=== PATIENT | female | born 1990 | race Caucasian/White ===

== ENCOUNTER 2021-01-25 09:03 | Outpatient (CLI) | payer BC, SELFPAY ==
[2021-01-25 09:25] LABS: Cholesterol 180 mg/dL (0-200); HDL Direct 48 mg/dL; LDL Cholesterol Direct 101 mg/dL; Triglycerides 106 mg/dL (<150)
[2021-01-25 09:27] LABS: Vitamin D 25 Hydroxy 39.3 ng/mL
[2021-01-25 09:29] LABS: Alanine Aminotransferase 87 U/L (4-35); Albumin Level 4.5 g/dL (3.5-5.1); Alkaline Phosphatase 96 U/L (38-126); Anion Gap 8 mmol/L (8-16); Aspartate Amino Transferase 54 U/L (14-36); Bilirubin,Total 0.9 mg/dL (0.2-1.3); Blood Urea Nitrogen 15 mg/dL (7-17); Calcium 9.1 mg/dL (8.4-10.2); Carbon Dioxide 28 mmol/L (22-30); Chloride 101 mmol/L (98-107); Estimated Glomerular Filt Rate > 60; Folic Acid 10.9 ng/mL (2.76->20); Glucose 98 mg/dL (65-110); Potassium 4.2 mmol/L (3.4-5.0); Sodium 137 mmol/L (137-145)
[2021-01-25 10:06] LABS: Basophils Percent Auto 0.6 % (0.2-1.2); Eosinophils Absolute Auto 0.1 K/mm3 (0-0.3); Eosinophils Percent Auto 1.6 % (0-4.4); Hematocrit 34.8 % (37.0-47.0); Hemoglobin 11.9 g/dL (12.0-15.0); Immature Granulocyte Absolute 0.02 K/mm3 (0.00-0.031); Immature Granulocyte Percent A 0.3 % (0-0.5); Lymphocytes Absolute Auto 2.45 K/mm3 (0.9-3.2); Lymphocytes Percent Auto 34.8 % (18.3-44.2); Mean Corpuscular HGB Conc 34.2 g/dl (32-36); Mean Corpuscular Hemoglobin 30.2 pg (26-34); Mean Corpuscular Volume 88.3 fl (80-100); Mean Platelet Volume 9.1 fl (7.4-10.4); Monocytes Absolute Auto 0.6 K/mm3 (0.1-0.6); Neutrophils Absolute Auto 3.9 K/mm3 (1.3-6.7); Neutrophils Percent Auto 54.7 % (45.5-73.1); Platelet Count Result 349 k/mm3 (150-375); Red Blood Count 3.94 M/mm3 (4.2-5.4); Red Cell Distribution Width 11.7 % (11.5-14.5)
[2021-01-25 11:32] LABS: Add Urine Microscopic? YES; Appearance Urine Cloudy (Clear); Bacteria Urine Trace /hpf; Bilirubin Urine Negative (Negative); Blood Urine Negative (Negative); Color Urine Yellow (Yellow); Glucose Urine UA Negative (Negative); Ketones Urine Negative (Negative); Leukocyte Esterase Ur Negative LEU/UL (Negative); Mucus Urine Rare /lpf; Nitrate Urine Negative (Negative); Protein Urine Negative (Negative); Specific Grav Ur 1.014 (1.001-1.035); Squamous Epithelial Cell Urine Few /hpf (Few); Urobilinogen Urine Negative mg/dL (<2.0); WBC Urine 0-3 /hpf
== END 2021-01-25 09:04 | disposition home or self-care (01) ==
LOC: ANHLAB 09:07
PROVIDERS: PCP Family Medicine; Visit Provider Family Medicine
DX: Z00.00 Encounter for general adult medical examination without abnormal findings (principal); E66.9 Obesity, unspecified; G89.29 Other chronic pain; Z13.9 Encounter for screening, unspecified
CPT/HCPCS: 36415; 80053; 80061; 81001; 82306; 82607; 82746; 83036; 83735; 85025

== ENCOUNTER 2021-05-11 20:14 | Emergency (ER) | payer BC, SELFPAY ==
[2021-05-11 20:20] VITALS: BP 123/88; PULSE 65; RESP 16; TEMP 36.2; O2SAT 97
--- NOTE | 2021-05-11 20:37 | ED.GENADULT ---
HPI - General Adult General Chief complaint: Epistaxis Stated complaint: nose bleed Source: patient Mode of arrival: ambulatory Limitations: no limitations History of Present Illness HPI narrative: patient presents with history of nose bleed that occurred earlier today has been using pseudoephedrine intranasally because of nasal congestion and patient had a nosebleed that lasted maybe about a half an hour [id number] currently there is no bleeding there is some nasal congestion with no fever chills no shortness of breath no sinus congestion or pressure. Onset (ago): hour(s) Location: face ( nose bleed) Related Data Home Medications Medication Instructions Recorded Confirmed buspirone 5 mg PO DIRECTED 05/11/21 05/11/21 escitalopram oxalate 5 mg PO DIRECTED 05/11/21 05/11/21 Allergies Allergy/AdvReac Type Severity Reaction Status Date / Time latex Allergy Unknown Hives Verified 05/11/21 20:32 Review of Systems Review of Systems: All systems reviewed & are unremarkable except as noted in HPI and below PMFSH Past Medical History Medical History Nasal congestion Exam Const: General: no acute distress Orientation/consciousness: patient oriented x3 HENMT: Head: normal to inspection Other: is nostrils bilaterally lochia erythematous and there is on the right nostril a small amount of intranasal blood but currently no bleeding. Eyes: Conjunctivae: conjunctivae normal Pupils: Equal, round and reactive pupils present Neck: Neck: normal visual inspection and no lymphadenopathy Chest: Chest palpation & inspection: normal inspection of the chest Resp: Effort & Inspection: normal respiratory effort Auscultation: clear to auscultation bilaterally GI: GI Palp: Yes Soft to palpation Percussion: Yes normal to percussion : General: Yes no CVA tenderness Urinary Catheter: Urinary Catheter: patent and draining Skin: General skin exam: normal color Rashes: no rashes Neuro: General: patient oriented x3 and moves all extremities Extrem: General: normal to inspection and no pedal edema Psych: Mental Status: mental status grossly normal Course Course Emergency Course: The patient presents and currently there is no epistaxis, advised methods to contain epistaxis, advised her to discontinue her phenylephrine, Critical Care Time Critical Care Time Critical Care Time: No Discharge Plan Discharge Clinical Impression: Epistaxis Patient Disposition: Home, Self-Care Condition: Stable Instructions: Antibiotic Form, Nosebleed (ED) Additional Instructions: advised to discontinue phenylephrine, can use Claritin by mouth daily, instill water into nostrils and code Q-tip with Vaseline and gently Andrez inside of nostrils, use a cool mist humidifier at night and follow-up with primary care physician if symptoms persist. Prescriptions: No Action escitalopram oxalate 5 mg tablet 5 mg PO DIRECTED RF: 0 buspirone 5 mg PO DIRECTED RF: 0 Follow-up/Referrals: Martell,MD Eulogio [Primary Care Provider] - Stand Alone Forms: Work/School Release IP Time of Disposition: 20:41
== END 2021-05-11 20:50 | disposition home or self-care (01) ==
PROVIDERS: Emergency Provider Emergency Medicine; PCP Family Medicine
DX: R04.0 Epistaxis (principal)
CPT/HCPCS: 99281

== ENCOUNTER 2022-05-31 07:06 | Outpatient (CLI) | payer BC, SELFPAY ==
[2022-05-31 07:34] LABS: Basophils Absolute Auto 0.1 K/mm3 (0.0-0.1); Basophils Percent Auto 0.9 % (0.2-1.2); Eosinophils Absolute Auto 0.3 K/mm3 (0-0.3); Hematocrit 40.3 % (37.0-47.0); Hemoglobin 13.7 g/dL (12.0-15.0); Immature Granulocyte Absolute 0.01 K/mm3 (0.00-0.031); Immature Granulocyte Percent A 0.1 % (0-0.5); Lymphocytes Absolute Auto 3.77 K/mm3 (0.9-3.2); Lymphocytes Percent Auto 40.5 % (18.3-44.2); Mean Corpuscular Volume 88.2 fl (80-100); Mean Platelet Volume 8.6 fl (7.4-10.4); Monocytes Absolute Auto 0.7 K/mm3 (0.1-0.6); Monocytes Percent Auto 7.5 % (2.6-8.5); Neutrophils Absolute Auto 4.5 K/mm3 (1.3-6.7); Platelet Count Result 358 k/mm3 (150-375); Red Blood Count 4.57 M/mm3 (4.2-5.4); Red Cell Distribution Width 11.8 % (11.5-14.5); White Blood Count 9.3 K/mm3 (4.5-10.0)
[2022-05-31 07:35] LABS: Hemoglobin A1C 5.2 % (<5.7)
[2022-05-31 07:37] LABS: Anion Gap 6 mmol/L (8-16); Blood Urea Nitrogen 17 mg/dL (7-17); Calcium 9.3 mg/dL (8.4-10.2); Carbon Dioxide 30 mmol/L (22-30); Chloride 101 mmol/L (98-107); Estimated Glomerular Filt Rate > 60; Glucose 102 mg/dL (65-110); Potassium 4.1 mmol/L (3.4-5.0); Sodium 137 mmol/L (137-145)
[2022-05-31 07:38] LABS: Alanine Aminotransferase 57 U/L (6-35); Albumin Level 4.5 g/dL (3.5-5.1); Alkaline Phosphatase 105 U/L (38-126); Aspartate Amino Transferase 52 U/L (14-36); Bilirubin,Total 0.8 mg/dL (0.2-1.3); Total Protein 7.3 g/dL (6.3-8.2)
[2022-06-03 16:33] LABS: Triiodothyronine T3 Free 2.9 pg/mL (2.3-4.2)
[2022-06-05 04:46] LABS: Insulin Level Total 6.6 uIU/mL (<=19.6)
== END 2022-05-31 07:07 | disposition home or self-care (01) ==
LOC: ANHLAB 07:10
PROVIDERS: PCP Family Medicine
DX: R63.5 Abnormal weight gain (principal); Z79.899 Other long term (current) drug therapy
CPT/HCPCS: 36415; 80053; 82533; 83036; 83525; 84439; 84443; 84481; 85025

== ENCOUNTER 2022-10-11 19:05 | Emergency (ER) | payer BC, SELFPAY ==
[2022-10-11 19:05] VITALS: BP 156/100; PULSE 95; RESP 18; TEMP 36.9; O2SAT 100
--- NOTE | 2022-10-11 19:17 | ED.GENADULT ---
HPI - General Adult General Chief complaint: Unspecified Stated complaint: Hypertension Time Seen by Provider: 10/11/22 19:10 History of Present Illness HPI narrative: Shila is a 31F with a PMH of a mood disorder and very seldom headaches that presented to the ED with a headache ans stress. When asked why she came to the ED she just said she needed help. She said she was afraid she was going to have a stroke or a heart attack but she denied any chest pain, dyspnea, N/V and lightheadedness as well as weakness and slurred speech. It turns out she is under a lot of family stress watching her sister's triplets and her sister has legal troubles. She is just under a lot of stress and she cannot get into a doctor. She has a very flat affect and speaks with very short answers with somewhat mumbled speech making a history quite difficult. She did however report that she has a right sided pounding headache with vision changes that came on slowly today that is giving her a lot of trouble. Related Data Home Medications Medication Instructions Recorded Confirmed buspirone 5 mg PO DIRECTED 05/11/21 10/11/22 Allergies Allergy/AdvReac Type Severity Reaction Status Date / Time latex Allergy Unknown Hives Verified 05/11/21 20:32 Review of Systems Review of Systems: All systems reviewed & are unremarkable except as noted in HPI and below PMFSH Past Medical History Medical History Nasal congestion Exam Const: General: cooperative, healthy appearing, comfortable and no acute distress Nutritional Appearance: well nourished Orientation/consciousness: oriented to person HENMT: Head: normal to inspection, normocephalic and atraumatic Ears: hearing grossly normal bilaterally and TM's normal bilaterally Eyes: General: appearance normal, both eyes and all related structures Alignment and Position: alignment normal Neck: Neck: normal visual inspection Chest: Chest palpation & inspection: normal inspection of the chest Resp: Effort & Inspection: normal respiratory effort and able to speak in complete sentences Cardio: Rate: regular rate GI: Inspection: normal to inspection Skin: General skin exam: normal color and no rashes or lesions noted Neuro: General: oriented to person, oriented to place, oriented to time, gait normal, moves all extremities and CN's II-XI intact bilaterally Other: 5/5 symmetrical strength throughout the upper and lower extremities Extrem: General: normal to inspection Psych: Appearance: grossly normal and well kempt Mental Status: mental status grossly normal Speech and movement: Slurred speech present and Slowed movement present (Neuro) Affect: Sad affect present Attitude: cooperative and Avoids eye contact (attititude/behavior) Thought process: Normal thought process present Insight: Good insight present (Psych) Course Course Emergency Course: Ordered Benadryl, Compazine, and fluids for the headache and Ativan for the mood. Vital Signs Vital signs: Vital Signs Temperature 98.5 F 10/11/22 19:05 Pulse Rate 95 10/11/22 19:05 Respiratory Rate 18 10/11/22 19:05 Blood Pressure 156/100 H 10/11/22 19:05 Pulse Oximetry 100 10/11/22 19:05 Oxygen Delivery Room Air 10/11/22 19:05 Temperature 98.9 F 10/11/22 19:52 Pulse Rate 104 H 10/11/22 19:52 Respiratory Rate 18 10/11/22 19:52 Blood Pressure 136/97 H 10/11/22 19:52 Pulse Oximetry 100 10/11/22 19:52 Oxygen Delivery Room Air 10/11/22 19:52 Medical Decision Making Vital Signs Vital Signs: Vital Signs Temperature 98.5 F 10/11/22 19:05 Pulse Rate 95 10/11/22 19:05 Respiratory Rate 18 10/11/22 19:05 Blood Pressure 156/100 H 10/11/22 19:05 Pulse Oximetry 100 10/11/22 19:05 Oxygen Delivery Room Air 10/11/22 19:05 Temperature 98.9 F 10/11/22 19:52 Pulse Rate 104 H 10/11/22 19:52 Respiratory Rate 18
[2022-10-11] MEDS: SODIUM CHLORIDE 0.9% IV 1,000 ML 999 ML IV CONT (19:37)
[2022-10-11] MEDS: PROCHLORPERAZINE EDISYLATE 10 MG/2 ML VIAL IM (19:39)
[2022-10-11] MEDS: LORazepam INJ (*CRX) 2 MG/ML VIAL 0.5 MG IV PUSH (19:39)
[2022-10-11] MEDS: diphenhydrAMINE HCl INJ 50 MG/ML VIAL IV PUSH (19:39)
[2022-10-11 20:00] VITALS: BP 140/100; PULSE 75; RESP 20; O2SAT 99
[2022-10-11 20:38] VITALS: BP 137/81; PULSE 85; RESP 18; TEMP 36.6; O2SAT 100
== END 2022-10-11 20:41 | disposition home or self-care (01) ==
PROVIDERS: Emergency Provider Family Medicine
DX: F41.0 Panic disorder [episodic paroxysmal anxiety] (principal); F41.1 Generalized anxiety disorder; I10 Essential (primary) hypertension
CPT/HCPCS: 96361; 96372; 96374; 96375; 99284; J0780; J1200; J2060; J7030

== ENCOUNTER 2022-12-06 07:30 | Outpatient (CLI) | payer BC, SELFPAY ==
[2022-12-06 07:45] LABS: Basophils Absolute Auto 0.1 K/mm3 (0.0-0.1); Basophils Percent Auto 0.7 % (0.2-1.2); Eosinophils Absolute Auto 0.1 K/mm3 (0-0.3); Eosinophils Percent Auto 1.7 % (0-4.4); Hematocrit 40.6 % (37.0-47.0); Hemoglobin 13.6 g/dL (12.0-15.0); Immature Granulocyte Absolute 0.02 K/mm3 (0.00-0.031); Immature Granulocyte Percent A 0.2 % (0-0.5); Lymphocytes Absolute Auto 2.34 K/mm3 (0.9-3.2); Lymphocytes Percent Auto 28.2 % (18.3-44.2); Mean Corpuscular HGB Conc 33.5 g/dl (32-36); Mean Corpuscular Hemoglobin 29.8 pg (26-34); Mean Platelet Volume 8.5 fl (7.4-10.4); Monocytes Absolute Auto 0.7 K/mm3 (0.1-0.6); Neutrophils Absolute Auto 5.1 K/mm3 (1.3-6.7); Neutrophils Percent Auto 61.2 % (45.5-73.1); Platelet Count Result 365 k/mm3 (150-375); Red Blood Count 4.56 M/mm3 (4.2-5.4); Red Cell Distribution Width 11.6 % (11.5-14.5); White Blood Count 8.3 K/mm3 (4.5-10.0)
[2022-12-06 08:38] LABS: Vitamin D 25 Hydroxy 49.1 ng/mL
[2022-12-06 09:40] LABS: Alanine Aminotransferase 49 U/L (6-35); Albumin Level 4.8 g/dL (3.5-5.1); Alkaline Phosphatase 103 U/L (38-126); Anion Gap 11 mmol/L (8-16); Aspartate Amino Transferase 37 U/L (14-36); Bilirubin,Total 0.6 mg/dL (0.2-1.3); Blood Urea Nitrogen 15 mg/dL (7-17); Calcium 9.4 mg/dL (8.4-10.2); Carbon Dioxide 28 mmol/L (22-30); Chloride 101 mmol/L (98-107); Cholesterol 197 mg/dL (0-200); Estimated Glomerular Filt Rate > 60; Glucose 101 mg/dL (65-110); HDL Direct 46 mg/dL; Potassium 4.1 mmol/L (3.4-5.0); Sodium 140 mmol/L (137-145); Triglycerides 95 mg/dL (<150)
[2022-12-06 10:00] LABS: LDL Cholesterol Direct 105 mg/dL
[2022-12-06 10:01] LABS: Beta HCG Quantitative < 2.39 mIU/ML
[2022-12-06 10:52] LABS: Folic Acid > 20.0 ng/mL (2.76->20)
[2022-12-07 15:51] LABS: Hepatitis B Surface Antigen Negative (Negative)
[2022-12-07 15:57] LABS: HAV RESULT Negative (Negative); Hepatitis B Core IgM Result Negative (Negative)
[2022-12-07 16:08] LABS: Hepatitis C Virus Antibody Negative (Negative)
== END 2022-12-06 07:31 | disposition home or self-care (01) ==
LOC: ANHLAB 07:31
PROVIDERS: PCP Nurse Practitioner Family; Visit Provider Nurse Practitioner Family
DX: R53.83 Other fatigue (principal); Z32.00 Encounter for pregnancy test, result unknown; Z76.89 Persons encountering health services in other specified circumstances; R74.8 Abnormal levels of other serum enzymes
CPT/HCPCS: 36415; 80053; 80061; 80074; 82306; 82607; 82746; 84443; 84702; 85025

== ENCOUNTER 2023-01-09 07:15 | Outpatient (CLI) | payer BC, SELFPAY ==
[2023-01-09 07:56] LABS: Alanine Aminotransferase 116 U/L (6-35); Albumin Level 4.5 g/dL (3.5-5.1); Alkaline Phosphatase 138 U/L (38-126); Aspartate Amino Transferase 84 U/L (14-36); Bilirubin,Total 0.5 mg/dL (0.2-1.3)
== END 2023-01-09 07:16 | disposition home or self-care (01) ==
LOC: ANHLAB 07:16
PROVIDERS: PCP Nurse Practitioner Family; Visit Provider Nurse Practitioner Family
DX: R74.8 Abnormal levels of other serum enzymes (principal); R53.83 Other fatigue
CPT/HCPCS: 36415; 80076; 82607

== ENCOUNTER 2023-01-15 09:49 | Outpatient (CLI) | payer BC, SELFPAY ==
--- NOTE | ~2023-01-15 | US_ITS ---
Abdominal Sonogram: Real-time sonographic imaging of the abdomen was performed. Clinical History: Abnormal serum enzyme levels Findings: The liver appears normal with no evidence of bile duct dilatation. There is a 1.1 cm hyper echoic hepatic mass. Main portal vein demonstrates normal direction of flow. The spleen is normal in size without evidence of focal lesion. The gallbladder is well distended, and appears normal with no evidence of gallstone or wall thickening. The common bile duct measures 5 mm. The visualized pancre as, aorta, and IVC are unremarkable. The right kidney measures 10.3 cm in length and the left kidney measures 11.5 cm. There is no hydronephrosis or renal calculus. Impression: 1.1 cm hyperechoic hepatic lesion, most likely small hemangioma. Confirmation with MR imaging can be performed, as indicated. Reviewed, dictated and finalized at [facility]. 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 Confirmation w ith MR imaging can be performed, as indicated.
== END 2023-01-15 09:50 | disposition home or self-care (01) ==
LOC: CHSIMG 09:50
PROVIDERS: PCP Nurse Practitioner Family; Visit Provider Nurse Practitioner Family
DX: R74.8 Abnormal levels of other serum enzymes (principal); K76.9 Liver disease, unspecified
CPT/HCPCS: 76700

== ENCOUNTER 2023-01-25 08:56 | Outpatient (CLI) | payer BC, SELFPAY ==
--- NOTE | ~2023-01-25 | CT_ITS ---
CT of the Abdomen and Pelvis: Indication: Liver disease, unspecified Technique: 2.5 mm axial scans were obtained through the abdomen and pelvis prior to and following in travenous administration of 100 cc of Omnipaque 350. Dose reduction technique was used on this scan b y utilizing automated exposure control and iterative reconstruction technique. The dose-length produc t (DLP) was 2400.33 mGy-cm. Correlation made with prior ultrasound dated 01/15/2023. Findings: Scans through the lung bases are unremarkable. The liver, spleen, pancreas, gallbladder, adrenals and kidneys are within normal limits. No evidence of aortic aneurysm. No lymphadenopathy. No bowel obstruction or bowel wall thickening. There is no evidence to suggest acute appendicitis. Images through the pelvis were performed. Urinary bladder unremarkable. No adnexal mass seen. No asci matti. Impression: No significant abnormalities seen. No CT correlate seen for the ultrasound finding of the liver. Reviewed, dictated and finalized at [facility]. K COOPER Impression: No significant abnormalities seen. No CT correlate seen for the ultrasound find ing of the liver.
[2023-01-25 09:33] LABS: Estimated Glomerular Filt Rate > 60
== END 2023-01-25 08:57 | disposition home or self-care (01) ==
LOC: CHSIMG 08:57
PROVIDERS: PCP Nurse Practitioner Family; Visit Provider Nurse Practitioner Family
DX: R74.8 Abnormal levels of other serum enzymes (principal); K76.9 Liver disease, unspecified
CPT/HCPCS: 74178; Q9967

== ENCOUNTER 2024-08-22 21:47 | Emergency (ER) | payer OTHER, SELFPAY ==
--- NOTE | ~2024-08-22 | CT_ITS ---
Non-contrast Head CT History: Head injury Technique: Axial non-contrast imaging of the brain was performed. Dose reduction technique was used on this scan by utilizing automated exposure control and iterative reconstruction technique. The dose -length product (DLP) was 605.33 mGy-cm. Findings: There is no evidence of intracranial hemorrhage, mass lesion, or acute infarct. Brain par enchyma appears normal. The ventricles and subarachnoid spaces are normal in size. The calvarium ap pears normal. The visualized paranasal sinuses and mastoid air cells are clear. Impression: No significant abnormality seen. Reviewed, dictated and finalized at location . Impression: No significant abnormality seen.
[2024-08-22 21:48] VITALS: BP 154/89; PULSE 85; RESP 18; TEMP 36.6; O2SAT 100
--- OUTSIDE RECORDS SUMMARY | 2024-08-22 21:49 | XMS_ITS | Encounter Summary ---
Author Name [facility] [place] [facility] Address [address] [place] [address] Care Team Providers Care Browning Processor Name Role Phone USAMA LOPEZ Primary Care Provider Unavailab do Insurance Providers: All historical and current Section Date Range: From patient's date of to the date document was created. This section includes the names of all active insurance providers for the patient. Insurance Provider Type of Coverage Plan Name Start of Policy Coverage End of Policy Coverage Group Number Member ID Insurance Provider's Telephone Number Policy Clayton's Name Patient's Relationship to Policy Clayton J[employer] [place] PREFERRED PROVIDER ORGANIZAT ION (PPO) TEAMS TER & EMPLO YERS Mar 11, 2018 [id number] [phone] AXEL MULTANI SPOUSE [employer] [place] PREFERRED PROVIDER ORGANIZAT ION (PPO) TEAMS TER + EMPLO YERS Mar 11, 2018 [id number] AXEL MULTANI SPOUSE LDI RX PRESCRIPT ION TEAMS TER & EMPLO YERS Mar 11, 2018 [id number] [phone] AGUSTINA MULTANIY SPOUSE Selected Encounter This section includes the information on record at [place] for the Encounter. Date/Time Encounter Type Encounter Description Reason Provider Source Jun 29, 2024 03:45 PM Outpatient Encounter ADMIN PAT ACTIVTIES (MASNONCT) TONO MCRAE Ramesh Encounter Template Text not used by [place] Plan of Treatment: Future Appointments (+ 6 months) and Future Tests (+/- 45 days) The Plan of Treatment section includes future care activities for the [facility] This section includes future appointments and future orders which are active, pending or scheduled. Future Appointments This section includes appointments that were scheduled to occur 6 months from the date of the Encounter, up to a maximum of 20 appointments. The data comes from all [facility] facilities. Appointment Date/Time Appointment Type Appointme nt Facility Name Jul 08, 2024 10:00 AM AMBULATORY - MEDICINE [facility] July 30, 2024 11:30 AM AMBULATORY - MEDICINE [facility] August 06, 2024 01:00 PM AMBULATORY - MEDICINE [facility] Aug 12, 2024 10:00 AM AMBULATORY MEDICINE [facility] Aug 26, 2024 10:00 AM AMBULATORY - MEDICINE [facility] Sep 18, 2024 11:00 AM AMBULATORY - MEDICINE [facility] Oct 12, 2024 03:15 PM AMBULATORY - MEDICINE [facility] Social History: Smoking Status (Most current) and Tobacco Use (All prior to encounter date) This section includes the most current, and the historical, smoking and tobacco- related health factors from the [place] facility where the Encounter took place. Current Smoking Status This section includes the most current smoking, or tobacco-related health factor, from the [place] facility where the Encounter took place. Date/Time Current Smoking Status Comment Facil ity Nov 28, 2018 10:42 AM [place]-TOBACCO FORMER USER [facility] Tobacco Use History This section includes a history of the smoking, or tobacco-related health factors, that were collected on or before the date of the Encounter. The data comes from the [place] facility where the Encounter took place. Date/Time Smoking Status/Tobacco Use Comment F acility Nov 28, 2018 10:42 AM [place]-TOBACCO QUIT 1 TO < [address] [facility] Encounter Notes: All associated encounter notes This section contains the clinical notes associated to the Encounter. Date/Time Encounter Note(s) Provider Source Jun 29, 2024 03:45 PM PHARMACY MEDICATIO N MGT DISCHARGE NOTE: LOCAL TITLE: PHARMACY COMMUNITY CARE PRESCRIPTION PROCESSING NOT STANDARD TITLE: PHARMACY MEDICATION MGT DISCHARGE NOTE DATE OF NOTE: JUN 29, 2024@15:45 ENTRY DATE: JUN 29, 2024@15:45:18 AUTHOR: TONO MCRAE WHI EXP COSIGNER: URGENCY: STATUS: COMPLETED Pharmacy service received prescription(s) via: Inbound ERx ELIGIBILITY: [facility] ([facility]) eligibility has been verified and/or is documented. PRESCRIPTION INFORMATION: Provider Information:HECTOR MARKS, fax: [phone] 1) eRx Drug : hydrocortisone 2.5 % topical creameRx SIG : Apply topically 2 (two) times a day DISPOSITION: The medication(s) prescribed is/are formulary without criteria for use or other restrictions, and will be dispensed to the patient. /debi/ TONO MCRAE PharmD [facility] Pharmacist, Pharmacy Signed: 06/29/2024 15:47 TONO MCRAE [facility]
--- OUTSIDE RECORDS SUMMARY | 2024-08-22 21:49 | XMS_ITS | Encounter Summary ---
Author Name [facility] [place] Organization [facility] [facility] [place] Address [address] [place] [address] Care Team Providers Care Engineer Process Name Role Phone USAMA LOPEZ Primary Care Provider Unavailab le Insurance Providers: All historical and current Section [...] TER & EMPLO YERS Mar 11, 2018 [id number] [phone] AXEL MULTANI SPOUSE [place] PREFERRED PROVIDER ORGANIZAT ION (PPO) TEAMS TER + EMPLO YERS Mar 11, 2018 [id number] [phone] AXEL MULTANI SPOUSE LDI RX PRESCRIPT ION TEAMS TER & EMPLO YERS Mar 11, 2018 [id number] [phone] GAYLA MULTANI SPOUSE Selected Encounter This section includes the information on record at [place] for the Encounter. Date/Time Encounter Type Encounter Description Reason Provider Source Jun 12, 2024 02:00 PM PSYTX W PT 30 MINUTES [facility] INDIV ICD-10-CM F41.9 Anxiety disorder, unspecified RAYMUNDO SANCHEZ Ramesh Encounter Template Text not used by [place] Assessments - Encounter Diagnoses This section includes the primary and secondary diagnoses documented for the Encounter. Date/Time Primary/Secondary Diagnosis Diagnosis Name Provider Source Jun 12, 2024 02:40 PM PRIMARY Anxiety disorder, unspecified RAYMUNDO SANCHEZ [facility] Jun 12, 2024 02:40 PM SECONDARY Depression, unspecified RAYMUNDO SANCHEZ Olivia ASHLEY [facility] Plan of Treatment: Future Appointments (+ 6 months) and Future Tests (+/- 45 days) The Plan of Treatment section includes future care activities for the patient from all [place] [facility] This section includes future appointments and future orders which are active, pending or scheduled. Future Appointments This section includes appointments that were scheduled to occur 6 months from the date of the Encounter, up to a maximum of 20 appointments. The data comes from all [place] treatment facilities. Appointment Date/Time Appointment Type Appointme nt Facility Name Jun 15, 2024 02:00 PM AMBULATORY - NONE [facility] Jun 17, 2024 11:00 AM AMBULATORY - MEDICINE [facility] Jun 24, 2024 11:00 AM AMBULATORY - MEDICINE [facility] Jun 24, 2024 02:00 PM AMBULATORY - MEDICINE [facility] Jul 08, 2024 10:00 AM AMBULATORY - MEDICINE [facility] July 30, 2024 11:30 AM AMBULATORY - MEDICINE [facility] August 06, 2024 01:00 PM AMBULATORY - MEDICINE [facility] Aug 12, 2024 10:00 AM AMBULATORY - MEDICINE [facility] Aug 26, 2024 10:00 AM AMBULATORY - MEDICINE [facility] Sep 18, 2024 11:00 AM AMBULATORY - MEDICINE [facility] Oct 12, 2024 03:15 PM AMBULATORY - MEDICINE [facility] Social History: Smoking Status (Most current) and Tobacco Use (All prior to encounter date) This section includes the most current, and the historical, smoking and tobacco- related health factors from the [place] facility where the Encounter took place. Current Smoking Status This section includes the most current smoking, or tobacco-related health factor, from the [place] facility where the Encounter took place. Date/Time Current Smoking Status Comment Facil ity Feb 07, 2022 11:00 AM VA-TOBACCO FORMER USER [facility] Tobacco Use History This section includes a history of the smoking, or tobacco-related health factors, that were collected on or before the date of the Encounter. The data comes from the [place] facility where the Encounter took place. Date/Time Smoking Status/Tobacco Use Comment F acility Feb 07, 2022 11:00 AM VA-TOBACCO QUIT 5 TO < 15 YRS [facility] Feb 28, 2018 01:06 PM VA-TOBACCO FORMER USER [facility] Feb 28, 2018 01:06 PM VA-TOBACCO QUIT 1 TO < 5 YRS [facility] Dec 13, 2017 08:31 AM VA-TOBACCO FORMER USER [facility] Dec 13, 2017 08:31 AM VA-TOBACCO QUIT 1 TO < 5 YRS [facility] Encounter Notes: All associated encounter notes This section contains the clinical notes associated to the Encounter. Date/Time Encounter Note(s) Provider Source Jun 12, 2024 02:24 PM MENTAL HEALTH CONS ULT: LOCAL TITLE: PRIMARY CARE MENTAL HEALTH INTEGRATION CONSULT STANDARD TITLE: MENTAL HEALTH CONSULT DATE OF NOTE: JUN 12, 2024@14:24 ENTRY DATE: JUN 12, 2024@14:24:26 AUTHOR: RAYMUNDO SANCHEZ COSIGNER: URGENCY: STATUS: COMPLETED PRIMARY CARE-MENTAL HEALTH INTEGRATION ([facility]) FUNCTIONAL ASSESSMENT NAME: GAYLA MULTANI DATE OF : Nov DIAGNOSIS BEING TREATED: Unspecified Anxiety D/O; Unspecified Depression CPT Code: 59136 SERVICE CONNECTION: Service Connected: 100% Rated Disabilities: SCARS (0% SC) HIATAL HERNIA (10% SC) LIMITED FLEXION OF THIGH (10% [place]) ALLERGIC OR VASOMOTOR RHINITIS (0% [place]) LIMITED FLEXION OF KNEE (10% SC) TINNITUS (10% SC) 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 Informed about *limits to confidentiality - charting/consultation with medical team - actions for safety of self/dependents *duration and purpose of this appointment as well as the potential risk, benefits, and complications of participating in treatment. The [place] expressed understanding and consented to participate in services. Clinical Reminders are Due: No Urgency of need for care: [X] Routine [ ] Stat Appropriate setting for care: [X] Outpatient [ ] ER REASON FOR REFERRAL: MIGUEL Ortiz referred this to Primary Care Psychology for a brief behavioral health assessment to address issues related to: anxiety Presenting Problem (Detail symptoms): anxiety and mood/depressive sxs Problem History (Duration/Frequency/Intensit y): Long-standing anxiety that has been chronic in nature with minimal fluctuation in intensity. Reports significant anxiety r/t pending delivery, noting that she experienced significant complications following the of her son 10 years ago resulting in her having to return to the hospital for inpt care. Reports frequent anxious thoughts r/t experiencing complications with this that are interfering with her ability to enjoy . Additionally reports feeling down/emotionally flat and disconnected. [place] reports onset of depressive sxs following several major life stressors, including deaths of brother and father, but notes that sxs have not fully resolved during periods of decreased stressors and no longer seem to be situational in nature Treatment History for Problem: Hx reported to be positive for previous engagement in outpt therapy and historical use of psychotropics. Factors that Improve/Exacerbate Problem, if applicable: -Improve: has not identified any factors that are helpful -Exacerbate: worrying about pending , feeling emotionally disconnected How Presenting Problem Impacts the Following: -Work/School: difficulty focusing and completing tasks at work -Relationships/Interpersonal : reports some tension in family relationships s/t stress surrounding pending delivery/ of daughter -Leisure/Recreation: decreased engagement -Physical/Medical/Pain: chronic back pain (pending consultation with chiropractor) -ETOH/Illicit Substance Use/Tobacco/Caffeine: -etoh: has not consumed etoh since 2022 -substances: denied -tobacco: denied -caffeine: minimal consumption during Symptom Measurements: ROS (by verbal report): Sleep: Initial and Middle Insomnia; frequent stressful dreams Interest: decreased, reports frequent anhedonia Guilt: endorsed Energy: decreased, reports significant anergia Concentration: decreased, reports has been dx'd with ADHD a few years ago Appetite: increased, reports eats mindlessly Psychomotor: WNL upon observation, reports often feeling restless Self-Report Questionnaires: See Mental Health Diagnostic Study dated today, Jul 03, for details regarding endorsements for specific sxs. PHQ-9 = 17 (Q#9=0); indicative of depressive sxs being reported in the Moderately Severe range. BOO-7 = 19; indicative of anxiety sxs being reported in the Severe range. LETHALITY ASSESSMENT -Are you having thoughts of harming yourself or others? denied -Any history of suicide attempts: denied -Risk Factors: depressive sxs -Protective Factors: reasons for living, help seeking, future orientation -Risk level: [X]LOW [ ]MODERATE [ ]HIGH -CLINICAL JUDGMENT AND DISPOSITION: In consideration of relevant risk and protective factors, the did NOT appear to be at imminent risk for suicide or homicide at this time and IS sustainable at the current level of care. -Comments: [place] was asked directly and denied SI/HI, to include any current or recent active or passive suicidal ideation. Specifically, denied any current or recent thoughts, feelings, urges, or desires for self-harm, as well as any historical engagement in planning, preparatory bxs, gestures, or attempts. -Any history of violence: Denied -Any current HI or aggressive urges: Denied -Any current concerns related to abuse, neglect, exploitation, and interpersonal violence: Denied MENTAL STATUS: [X] Within normal limits [ ] Other: ASSIST PHASE: [place] was provided with tools for self-management including: [ ] Handouts on: [ ] Online resources for: [X] Skills training in: stress and anxiety management strategies, mood management strategies [ ] Education regarding: GOALS FOR TX: The following goals were developed using shared decision-making with input by the [place]: decrease anxiety, in general and associated with pending specifically IMPRESSIONS: [place] endorses long-standing anxiety that has been exacerbated by fear and worry that she will experience complications with her current similar to those she experienced with her previous . also endorses significant mood/depressive sxs that interfere with her daily fx'ing and often result in her feeling less emotionally attached to others and less able to experience positive emotionality. Annita does not wish to utilize medication at this time d/t concerns of possible impact on her baby. She was actively engaged in session and was receptive to recommendations and interventions. requests to engage in course of tx with [facility], noting that virtual appts are more conducive to her schedule. PLAN OF CARE: The following plan was developed collaboratively with the [place] and he/she provided verbal consent to participate in the treatment plan below. [X] Continue Care within [facility]. [ ] Behavioral Health Lab Monitoring weeks. [X] RTC in 2-3 weeks RECOMMENDATONS FOR PCP: None at this time. PCP added as signer for informational purposes. Outcome and recommendations will be discussed with the referring provider and other relevant PACT team members as needed. EDUCATION: was provided with opportunity to address any questions or concerns. The was provided with written contact information. The is aware of the Suicide Prevention Hotline number ( ) in case of crisis. If experiencing a mental health emergency, the should present to nearest emergency room or call 911 immediately. /debi/ RAYMUNDO SANCHEZ, PH.D. Clinical Psychologist; [facility] Signed: 06/12/2024 15:46 Receipt Acknowledged By: 06/12/2024 16:39 /es/ USAMA LOPEZ Staff Physician 06/15/2024 12:37 /es/ MIGUEL Bauer, CHANNEL PROCESS SUPERVISOR Maternity Industrial Gas Production Operator RAYMUNDO SANCHEZ [facility]
--- OUTSIDE RECORDS SUMMARY | 2024-08-22 21:49 | XMS_ITS | Encounter Summary ---
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 Name Role Phone USAMA LOPEZ Primary Care Provider Unavail le Insurance Providers: All historical and current [...] Patient's Relationship to Policy [place] PREFERRED PROVIDER ORGANIZAT ION (PPO) TEAMS TER & EMPLO YERS Mar 11, 2018 [id number] [phone] AXEL MULTANI SPOUSE [place] PREFERRED PROVIDER ORGANIZAT ION (PPO) TEAMS TER + EMPLO YERS Mar 11, 2018 [id number] [phone] AXEL MULTANI SPOUSE LDI RX PRESCRIPT ION TEAMS TER & EMPLO YERS Mar 11, 2018 [id number] [phone] GAYLA MULTANI SPOUSE Selected Encounter This section includes the information on record at [place] for the Encounter. Date/Time Encounter Type Encounter Description Reason Pro vider Source Feb 03, 2024 12:49 PM Outpatient Encounter GENERAL INTERNAL MEDICINE [facility] Encounter Template Text not used by [facility] Plan of Treatment: Future Appointments (+ 6 months) and Future Tests (+/- 45 days) The Plan of Treatment section includes future care activities for the patient from all [place] treatmentfacilities. This section includes future appointments and future orders which are active, pending or scheduled. Future Appointments This section includes appointments that were scheduled to occur 6 months from the date of the Encounter, up to a maximum of 20 appointments. The data comes from all [place] treatment facilities. Appointment Date/Time Appointment Type Appointme nt Facility Name Feb 10, 2024 11:00 AM AMBULATORY - MEDICINE [address] [facility] Feb 25, 2024 11:30 AM AMBULATORY - NONE [facility] Mar 17, 2024 09:30 AM AMBULATORY - MEDICINE [facility] Mar 23, 2024 12:30 PM AMBULATORY - MEDICINE [address] [facility] Apr 09, 2024 11:00 AM AMBULATORY - MEDICINE [address] [facility] Apr 14, 2024 03:30 PM AMBULATORY - MEDICINE [address] [facility] Apr 21, 2024 08:30 AM AMBULATORY - MEDICINE [facility] Apr 22, 2024 11:30 AM AMBULATORY - NONE [facility] Apr 28, 2024 11:00 AM AMBULATORY - MEDICINE [address] [facility] May 26, 2024 11:00 AM AMBULATORY - MEDICINE [address] [facility] Jun 12, 2024 02:00 PM AMBULATORY - MEDICINE [facility] Jun 15, 2024 02:00 PM AMBULATORY - NONE [facility] Jun 17, 2024 11:00 AM AMBULATORY - MEDICINE [address] [facility] Jun 24, 2024 11:00 AM AMBULATORY - MEDICINE [facility] Jun 24, 2024 02:00 PM AMBULATORY - MEDICINE [address] [facility] Jul 08, 2024 10:00 AM AMBULATORY - MEDICINE [facility] July 30, 2024 11:30 AM AMBULATORY - MEDICINE [facility] Social History: Smoking Status (Most current) and Tobacco Use (All prior to encounter date) This section includes the most current, and the historical, smoking and tobacco- related health factors from the [place] facility where the Encounter took place. Current Smoking Status This section includes the most current smoking, or tobacco-related health factor, from the [place] facility where the Encounter took place. Date/Time Current Smoking Status Comment Laly agarwal Jan 30, 2023 03:14 PM VA-TOBACCO FORMER USER [facility] Tobacco Use History This section includes a history of the smoking, or tobacco-related health factors, that were collected on or before the date of the Encounter. The data comes from the [place] facility where the Encounter took place. Date/Time Smoking Status/Tobacco Use Comment F acility Jan 30, 2023 03:14 PM VA-TOBACCO QUIT 5 TO < 15 YRS [facility] Nov 04, 2017 09:12 AM QUIT TOBACCO >12 M O & <7 YRS AGO [facility] Encounter Notes: All associated encounter notes This section contains the clinical notes associated to the Encounter. Date/Time Encounter Note(s) Provider Source Feb 03, 2024 12:49 PM NONVA NOTE: [facility] TITLE: COMMUNITY CARE-CARE COORDINATION PLAN NOTE [address] [facility] STANDARD TITLE: NONVA NOTE DATE OF NOTE: FEB 03, 2024@12:49 ENTRY DATE: FEB 03, 2024@12:50:32 AUTHOR: MARTINA VICKERS EXP COSIGNER: URGENCY: STATUS: COMPLETED SUBJECT: Appt Reminder Letter [place] called [facility] requesting a letter for Appointments scheduled 02.14.24 and 02.18.24 that can be provided to her employer. 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
--- OUTSIDE RECORDS SUMMARY | 2024-08-22 21:49 | XMS_ITS | Encounter Summary ---
Author Name [facility] [place] Address [address] [place] [address] Care Team Providers Care Veterinary Dentist Name Role Phone USAMA LOPEZ Primary Care [...] TER & EMPLO YERS Mar 11, 2018 [id number] [phone] AXEL MULTANI SPOUSE [place] PREFERRED PROVIDER ORGANIZAT ION (PPO) TEAMS TER + EMPLO YERS Mar 11, 2018 [id number] [phone] AXEL MULTANI SPOUSE LDI RX PRESCRIPT ION TEAMS TER & EMPLO YERS Mar 11, 2018 [id number] [phone] AGUSTINA MULTANIY SPOUSE Selected Encounter This section includes the information on record at [place] for the Encounter. Date/Time Encounter Type Encounter Description Reason Provider Source Jun 17, 2024 01:44 PM Outpatient Encounter ADMIN PAT ACTIVTIES (MASNONCT) TONO MCRAE Ramesh Encounter Template Text not used by [place] Plan of Treatment: Future Appointments (+ 6 months) and Future Tests (+/- 45 days) The Plan of Treatment section includes future care activities for the patient [facility] [place] [facility] This section includes future appointments and future orders which are active, pending or scheduled. Future Appointments This section includes appointments that were scheduled to occur 6 months from the date of the Encounter, up to a maximum of 20 appointments. The data comes from all [place] treatment facilities. Appointment Date/Time Appointment Type Appointme nt Facility Name Jun 24, 2024 11:00 AM AMBULATORY - MEDICINE [facility] Jun 24, 2024 02:00 PM AMBULATORY - MEDICINE [facility] Jul 08, 2024 10:00 AM AMBULATORY - MEDICINE [facility] July 30, 2024 11:30 AM AMBULATORY - MEDICINE [facility] August 06, 2024 01:00 PM AMBULATORY - MEDICINE [facility] Aug 12, 2024 10:00 AM AMBULATORY - MEDICINE [facility] Aug 26, 2024 10:00 AM AMBULATORY - MEDICINE [facility] Sep 18, 2024 11:00 AM AMBULATORY - MEDICINE [facility] Oct 12, 2024 03:15 PM AMBULATORY - MEDICINE [facility] Social History: Smoking Status (Most current) and Tobacco Use (All prior to encounter date) This section includes the most current, and the historical, smoking and tobacco- related health factors from the [place] facility where the Encounter took place. Current Smoking Status This section includes the most current smoking, or tobacco-related health factor, from the [place] facility where the Encounter took place. Date/Time Current Smoking Status Comment Facil ity Nov 28, 2018 10:42 AM [place]-TOBACCO QUIT 1 TO < 5 YRS [facility] Tobacco Use History This section includes a history of the smoking, or tobacco-related health factors, that were collected on or before the date of the Encounter. The data comes from the [place] facility where the Encounter took place. Date/Time Smoking Status/Tobacco Use Comment F acility Nov 28, 2018 10:42 AM SC-TOBACCO QUIT 1 TO < 5 YRS [facility] Encounter Notes: All associated encounter notes This section contains the clinical notes associated to the Encounter. Date/Time Encounter Note(s) Provider Source Jun 17, 2024 01:48 PM PHARMACY MEDICATIO N MGT DISCHARGE NOTE: LOCAL TITLE: PHARMACY COMMUNITY CARE PRESCRIPTION PROCESSING NOT STANDARD TITLE: PHARMACY MEDICATION MGT DISCHARGE NOTE DATE OF NOTE: JUN 17, 2024@13:48 ENTRY DATE: JUN 17, 2024@13:48:47 AUTHOR: TONO MCRAE WHI EXP COSIGNER: URGENCY: STATUS: COMPLETED Pharmacy service received prescription(s) via: Inbound ERx ELIGIBILITY: [facility] ([facility]) eligibility has been verified and/or is documented. PRESCRIPTION INFORMATION: Provider Information:VICENTE MARKS, FAX: [phone] 1) eRx Drug : blood-glucose meter kiteRx SIG : Please provide Glucometer, Test Strips and Lancets to pt. She will b e testing 4 times per day. 1 meter with 100 test strips and 100 lanc ets with 2 refills #1 DISPOSITION: The medication(s) prescribed is/are formulary, but subject to criteria for use. -PADR needed for QID testing. PADR submitted for review /debi/ TONO MCRAE PharmD [facility] Pharmacist, Pharmacy Signed: 06/17/2024 13:49 TONO MCRAE [facility]
--- OUTSIDE RECORDS SUMMARY | 2024-08-22 21:49 | XMS_ITS ---
Author Name [facility] [facility] [place] [facility] [place] [facility] [place] Address [address] [place] [address] Care Team Providers Care Log Grader Name Role Phone USAMA LOPEZ Primary Care [...] TER & EMPLO YERS Mar 11, 2018 [id number] [phone] AXEL MULTANI SPOUSE [place] PREFERRED PROVIDER ORGANIZAT ION (PPO) TEAMS TER + EMPLO YERS Mar 11, 2018 [id number] [phone] AXEL MULTANI SPOUSE LDI RX PRESCRIPT ION TEAMS TER & EMPLO YERS Mar 11, 2018 [id number] [phone] GAYLA MULTANI SPOUSE Selected Encounter This section includes the information on record at [place] for the Encounter. Date/Time Encounter Type Encounter Description Reason Provider Source Jun 24, 2024 11:00 AM PSYTX W PT 30 MINUTES PCMHI INDIV ICD-10-CM F41.9 Anxiety disorder, unspecified RAYMUNDO SANCHEZ Ramesh Encounter Template Text not used by [place] Assessments - Encounter Diagnoses This section includes the primary and secondary diagnoses documented for the Encounter. Date/Time Primary/Secondary Diagnosis Diagnosis Name Provider Source Jun 24, 2024 11:29 AM PRIMARY Anxiety disorder, unspecified RAYMUNDO SANCHEZ [facility] Jun 24, 2024 11:29 AM SECONDARY Depression, unspecified RAYMUNDO SANCHEZ [facility] Plan of Treatment: Future Appointments (+ 6 months) and Future Tests (+/- 45 days) The Plan of Treatment section includes future care activities for the patient from all [place] [facility] This section includes future appointments and future orders which are active, pending or scheduled. Future Appointments This section includes appointments that were scheduled to occur 6 months from the date of the Encounter, up to a maximum of 20 appointments. The data comes from all [place] treatment facilities. Appointment Date/Time Appointment Type Appointme nt Facility Name Jul 08, 2024 10:00 AM AMBULATORY - MEDICINE [facility] July 30, 2024 11:30 AM [facility]ORY - MED[facility]INE [facility] August 06, 2024 01:00 PM AMBULATORY - MEDICINE [facility] Aug 12, 2024 10:00 AM AMBULATORY MEDICINE [facility] Aug 26, 2024 10:00 AM AMBULATORY MEDICINE [facility] Sep 18, 2024 11:00 AM AMBULATORY - MEDICINE [facility] Oct 12, 2024 03:15 PM [facility]BULATORY - MEDICINE [facility] Social History: Smoking Status (Most current) [...] 07, 2022 11:00 AM VA-TOBACCO FORMER USER [facility] Tobacco Use History This section includes a history of the smoking, or tobacco-related health factors, that were collected on or before the date of the Encounter. The data comes from the [place] facility where the Encounter took place. Date/Time Smoking Status/Tobacco Use Comment F acility Feb 07, 2022 11:00 AM [place]-TOBACCO QUIT 5 TO < 15 YRS [facility] Feb 28, 2018 01:06 PM VA-TOBACCO FORMER USER [facility] Feb 28, 2018 01:06 PM NM-TOBACCO QUIT 1 TO < 5 YRS [facility] Dec 13, 2017 08:31 AM VA-TOBACCO FORMER USER [facility] Dec 13, 2017 08:31 AM [place]-TOBACCO QUIT 1 TO < 5 YRS [facility] Encounter Notes: All associated encounter notes This section contains the clinical notes associated to the Encounter. Date/Time Encounter Note(s) Provider Source Jun 24, 2024 11:16 AM PSYCHOLOGY OUTPATI ENT NOTE: LOCAL TITLE: PRIMARY CARE PSYCHOLOGY NOTE ST STANDARD TITLE: PSYCHOLOGY OUTPATIENT NOTE DATE OF NOTE: JUN 24, 2024@11:16 ENTRY DATE: JUN 24, 2024@11:16:05 AUTHOR: RAYMUNDO SANCHEZ COSIGNER: URGENCY: STATUS: COMPLETED NAME: GAYLA MULTANI DATE OF : Nov TIME SPENT WITH PATIENT: 30 minutes DIAGNOSIS BEING TREATED: Unspecified Anxiety D/O; Unspecified Depression CPT Code: 38706 NATURE OF ENCOUNTER: follow up visit SESSION FORMAT: [ ] [id number] [X] Video Telehealth [ ]Phone Confirmed 's location and phone number for virtual appointment. [X]Yes [ ]N/A SESSION NUMBER: 2 RELEVANT HISTORICAL DEVELOPMENTS SINCE LAST CONTACT: - has learned w/b scheduled to have gallbladder removed 4 weeks after delivery - recent concerns r/t insulin resistance - scheduled for at 39 weeks INTERVENTION/TREATMENT PROVIDED [X] [place] [X] Shared decision-making regarding goals of care [X] Supportive Psychotherapy [X] Solution-Focused Psychotherapy [ ] Insight Oriented Psychotherapy [X] Cognitive Behavioral Therapy Skills [ ] Acceptance and Commitment Therapy Skills [ ] Interpersonal Therapy Skills [ ] Motivational Interviewing [ ] Culture-based Interventions [ ] Health Psychology Interventions [ ] Evidence Based Psychotherapy: [ ] Psychosocial Interventions [ ] Other: Description of Interventions Provided by Therapist: - Assessed sxs and fx'ing. Mood and anxiety sxs remain significantly elevated. Increased stress r/t and other health concerns. Discussed in more detail. Provided with empathetic and supportive listening and appropriate validation. Assisted with processing related thoughts and feelings and challenging identified distorted cognitions. Discussed current stressors in more detail. demonstrating good awareness of issues over which she has control vs. those that she does not and making efforts to focus on the former. Discussed current concerns in more detail and assisted with problem solving and identification of potential solutions. Discussed communication strategies that can utilize to address concerns with others, including her healthcare providers. Reviewed mood and stress/anxiety management strategies. ASSESSMENT MEASURES USED: PHQ-9 not administered during today's encounter. Score = 17 (Moderately Severe range, Q#9=0) when administered on Jul 03. BOO-7 not administered during today's encounter. Score = 19 (Severe range) when administered on Jul 03. [X]Functional/Symptom Assessment: Symptom(s)/Function(s) tracked by changes in frequency, intensity or duration since last visit: mood sxs remain elevated, but appear stable; increased stress/anxiety ROS (by verbal report): Sleep: Increased Initial and Middle Insomnia (attributes increase to being in 3rd trimester); ongoing stressful dreams Interest: remains decreased, continues to report frequent anhedonia Guilt: continues to endorse Energy: remains decreased, continues to report significant anergia Concentration: remains decreased, continues to attribute to dx of ADHD Appetite: remains increased Collaboratively discussed outcomes related to assessment and treatment progress and measures will continue to be monitored. MEASURABLE TREATMENT GOALS FOR THIS EPISODE OF CARE: Goals were developed with using shared decision making. 1. GOAL/OBJECTIVES: decrease anxiety, in general and associated with pending specifically PROGRESS TOWARDS GOAL: stress and anxiety remains significantly elevated with increased stressors noted RESPONSE TO INTERVENTIONS: [place]'s participation/engagement: [X]The [place] participated actively in the current interventions. [ ]Other: The continues to consent to the current plan of care: Yes Comments: RISK ASSESSMENT: [X] NO CHANGE IN RISK FACTORS Related to Suicide or Homicide. [place] did not report any current suicidal/homicidal ideation, plan, or intent. [place] did not appear to be at imminent risk for suicide or homicide at this time and is considered sustainable at the current level of care. -CLINICAL JUDGMENT AND DISPOSITION: [X] In consideration of relevant risk and protective factors, the [place] did NOT appear to be at imminent risk for suicide or homicide at this time and IS sustainable at the current level of care. -Comments: [place] was asked directly and denied SI/HI, to include any current or recent active or passive ideation. Specifically, denied any current or recent thoughts, feelings, urges, or desires for self-harm or harm to others, as well as any engagement in planning, preparatory bxs, gestures, or attempts. ASSIGNED WORK: 1. Utilize recommended stress and anxiety management strategies. 2. Utilize recommended mood management strategies. COLLABORATIVE RECOMMENDATIONS/PLAN: Collaboratively discussed outcomes related to assessment and treatment progress. Based on this discussion: [X] No changes to plan of care. [place] expressed agreement with therapy tasks and [id number]-[id number] plan. RTC placed for f/u appt. /debi/ RAYMUNDO SANCHEZ, PH.D. Clinical Psychologist; [facility] Signed: 06/24/2024 12:22 RAYMUNDO SANCHEZ [facility]
--- OUTSIDE RECORDS SUMMARY | 2024-08-22 21:49 | XMS_ITS | Encounter Summary ---
Author Organization [facility] Healthcare Address [address] [place] [address] Care Team Providers Care Fruit Stuffer Name Role Phone Unknown, Alee Primary Care Provider Unavail able Bertha Barker MD Unavailable [phone] Amy Chiang Unavailable Unavailable Angel Horan MD Unavailable [phone] Encounter Details Date Type Department Care Team (Late st Contact Info) Description 04/20/2024 Telephone [facility] Transplant Heart [address] [facility] [address] [phone] [place] [address] Amy Chiang Social History Tobacco Use Types Packs/Day Years Used Date Smoking Tobacco: Never Smokeless Tobacco: Never Comments Yes Sex and Gender Information Value Date Recorded Sex Assigned at Not on file Legal Sex Female 12:27 PM CDT Gender Identity Not on file Sexual Orientation Not on file documented as of this encounter Plan of Treatment Not on file documented as of this encounter Visit Diagnoses Not on filedocumented in this encounter Care Teams Fruit Stuffer Relationship Specialty Start Date End Date Unknown, Alee PCP - General 10/10/22 Bertha Barker MD [address] [facility] [address] [place] [address] Consulting Physician Cardiology 04/09/24 Amy Chiang Primary Aligning Checker 04/09/24 Angel Horna MD [address] [place] [address] [place] [address] [place] Or Wind Instrument Tuner Obstetrics and Gynecology 07/26/24 documented as of this encounter
--- OUTSIDE RECORDS SUMMARY | 2024-08-22 21:49 | XMS_ITS | Encounter Summary ---
Author Organization [facility] Healthcare Address [address] [place] [address] Care Team Providers Care Rfid Systems Engineer Name Role Phone Unknown, Notinfile Primary Care Provider Unavail able Bertha Barker MD Unavailable [phone] Amy Chiang Unavailable Unavailable Angel Horan MD Unavailable Encounter Details Date Type Department Care Team (Late st Contact Info) Description 08/05/2024 Results Follow-Up [facility] [address] [place] [address] [address] [place] [id number] Angel Horan MD [address] [place] [address] [address] [place] [address] F5 (FVL) and F2 (Prothrombin) Mutations Social History Tobacco Use Types Packs/Day Years Used Date Smoking Tobacco: Never Smokeless Tobacco: Never Social Connection and Isolat ion Panel [NHANES] Answer Date Recorded In a typical week, how many times do you talk on the phone with family, friends, or neighbors? More than three times a week 07/24/2024 How often do you get togethe r with friends or relatives? More than three times a week 07/24/2024 How often do you attend chur ch or jainism services? Patient declined 07/24/2024 Do you belong to any clubs o r organizations such as jew groups, unions, fraternal or athletic groups, or school groups? Patient declined 07/24/2024 How often do you attend meet ings of the clubs or organizations you belong to? Patient declined 07/24/2024 Are you , , di vorced, , never , or living with a partner? 07/24/2024 AUDIT-C Answer Date Recorded Q1: How often do you have a drink containing alcohol? Never 07/24/2024 Q2: How many drinks containi ng alcohol do you have on a typical day when you are drinking? Patient does not drink Q3: How often do you have si x or more drinks on one occasion? Never 07/24/2024 Overall Financial Resource Strain (CARDIA) Answe r Date Recorded How hard is it for you to pa y for the very basics like food, housing, medical care, and heating? Not hard at all 07/24/2024 PHQ-2 Answer Date Recorded PHQ-2 Total Score (If total score is 3 or more points, staff should administer the PHQ-9) 0 07/24/2024 [facility] - Occupational Stress Questionnaire Answer Date Recorded Do you feel stress - tense, restless, nervous, or anxious, or unable to sleep at night because your mind is troubled all the time - these days? Not at all 07/24/2024 Exercise Vital Sign Answer Date Recorde d On average, how many days pe r week do you engage in moderate to strenuous exercise (like a brisk walk)? 0 days 07/24/2024 On average, how many minutes do you engage in exercise at this level? 0 min 07/24/2024 Hunger Vital Sign Answer Date Recorded Within the past 12 months, y ou worried that your food would run out before you got the money to buy more. Never true 07/25/19 25 Within the past 12 months, t he food you bought just didn't last and you didn't have money to get more. Never true 07/24/2024 PRAPARE - Transportation Answer Date Re corded In the past 12 months, has l ack of transportation kept you from medical appointments or from getting medications? No 07/09 In the past 12 months, has l ack of transportation kept you from meetings, work, or from getting things needed for daily living? No 07/24/2024 [place] Depression Scale Answer Date Recorded [place] Depression Scale Total 8 07/29/2024 The thought of harming myself has occurred to me . Never 07/29/2024 Housing Stability Vital Sign Answer Shay e Recorded In the last 12 months, was t here a time when you were not able to pay the mortgage or rent on time? No 07/24/2024 In the past 12 months, how m any times have you moved where you were living? 0 07/24/2024 At any time in the past 12 m [facility], were you homeless or living in a assisted (including now)? No 07/24/2024 Personal Safety Answer Date Recorded Have you ever been in or are you currently in a harmful physical or emotional relationship or is someone making you feel afraid or unsafe? Denies 08/04/2024 Comments No Sex and Gender Information Value Date Recorded Sex Assigned at Not on file Legal Sex Female 12:27 PM CDT Gender Identity Not on file Sexual Orientation Not on file documented as of this encounter Plan of Treatment Not on file documented as of this encounter Visit Diagnoses Not on filedocumented in this encounter Care Teams Rfid Systems Engineer Relationship Specialty Start Date End Date Unknown, Notinfile PCP - General 10/10/22 Bertha Barker MD [address] [address] Consulting Physician Cardiology 04/09/24 Amy Chiang Primary Grease Refiner Operator 04/09/24 Angel Horan MD [address] [place] [address] [address] [place] [address] Stonework Supervisor Obstetrics and Gynecology 07/26/24 documented as of this encounter
--- OUTSIDE RECORDS SUMMARY | 2024-08-22 21:49 | XMS_ITS | Encounter Summary ---
Author Name [facility] [place] [facility] [place] [facility] [place] Address [address] [place] [address] Care Team Providers Care Creel Selector Name Role Phone USAMA LOPEZ Primary Care [...] TER & EMPLO YERS Mar 11, 2018 [id number] [phone] AXEL MULTANI SPOUSE [place] PREFERRED PROVIDER ORGANIZAT ION (PPO) TEAMS TER + EMPLO YERS Mar 11, 2018 [id number] [phone] AXEL MULTANI SPOUSE LDI RX PRESCRIPT ION TEAMS TER & EMPLO YERS Mar 11, 2018 [id number] [phone] AGUSTINA MULTANIY SPOUSE Selected Encounter This section includes the information on record at [place] for the Encounter. Date/Time Encounter Type Encounter Description Reason Provider Source July 30, 2024 08:51 AM Outpatient Encounter ADMIN PAT ACTIVTIES (MASNONCT) TONO MCRAE Ramesh Encounter Template Text not used by [place] Plan of Treatment: Future Appointments (+ 6 months) and Future Tests (+/- 45 days) The Plan of Treatment section includes future care activities for the patient from all [place] [facility]. This section includes future appointments and future orders which are active, pending or scheduled. Future Appointments This section includes appointments that were scheduled to occur 6 months from the date of the Encounter, up to a maximum of 20 appointments. The data comes from all [facility] facilities. Appointment Date/Time Appointment Type Appointme nt Facility Name August 06, 2024 01:00 PM AMBULATORY - MEDICINE [facility] Aug 12, 2024 10:00 AM AMBULATORY - MEDICINE [facility] Aug 26, 2024 10:00 AM AMBULATORY - MEDICINE [facility] Sep 18, 2024 11:00 AM AMBULATORY - MEDICINE [facility] Oct 12, 2024 03:15 PM AMBULATORY - MEDICINE [facility] Social History: Smoking Status (Most current) and Tobacco Use (All prior to encounter date) This section includes the most current, and the historical, smoking and tobacco- related health factors from the [place] facility where the Encounter took place. Current Smoking Status This section includes the most current smoking, or tobacco-related health factor, from the [place] facility where the Encounter took place. Date/Time Current Smoking Status Comment Facil ity Nov 28, 2018 10:42 AM [place]-TOBACCO FORMER USER [facility] Tobacco Use History This section includes a history of the smoking, or tobacco-related health factors, that were collected on or before the date of the Encounter. The data comes from the [place] facility where the Encounter took place. Date/Time Smoking Status/Tobacco Use Comment F acility Nov 28, 2018 10:42 AM MS-TOBACCO QUIT 1 TO < [address] [facility] Encounter Notes: All associated encounter notes This section contains the clinical notes associated to the Encounter. Date/Time Encounter Note(s) Provider Source July 30, 2024 08:51 AM PHARMACY MEDICATIO N MGT DISCHARGE NOTE: LOCAL TITLE: PHARMACY COMMUNITY CARE PRESCRIPTION PROCESSING NOT STANDARD TITLE: PHARMACY MEDICATION MGT DISCHARGE NOTE DATE OF NOTE: JULY 30, 2024@08:51 ENTRY DATE: JULY 30, 2024@08:51:35 AUTHOR: TONO MCRAE WHI EXP COSIGNER: URGENCY: STATUS: COMPLETED Pharmacy service received prescription(s) via: Inbound ERx ELIGIBILITY: [facility] ([facility]) eligibility has been verified and/or is documented. Authorization #: in [facility] PRESCRIPTION INFORMATION: [facility] [phone] fax: [phone] 1) eRx Drug : NIFEdipine 30 mg 24 hr tableteRx SIG : Take 1 tablet (30 mg total) by mouth daily 2) eRx Drug : rivaroxaban 15 mg (42)-20 mg (9) tablets in a starter packeRx SIG : Take 15 mg (1 tablet) TWICE a day for 21 days, then take 20 mg (1 tablet) once a day thereafter.eRx Notes: May substitute individual tablets if dose pack is unavailable #51, 0 refills DISPOSITION: The medication(s) prescribed is/are formulary without criteria for use or other restrictions, and will be dispensed to the patient. The medication(s) prescribed is/are formulary, but subject to criteria for use. More information is needed from the Non-VA provider to determine if the patient does/does not meet criteria for use. service awaits reply. Comment: Rodrick Contacted patient's provider regarding: Prescription is for a non-formulary medication/supply or has criteria for use and further information and evaluation is required. /debi/ TONO MCRAE PharmD [facility] Pharmacist, Pharmacy Signed: 07/30/2024 08:53 TONO MCRAE [facility]
--- OUTSIDE RECORDS SUMMARY | 2024-08-22 21:49 | XMS_ITS | CONTINUITY OF CARE DOCUMENT ---
Author Name cayden andiangelique Address Unknown Organization [facility] Address [address] [place] [address] [address] [place] [address] Phone [phone] Care Team Providers Care Traveling Clerk Name Role Phone Arnaud HURST, Ganesh Unavailable SOPHIE HOUGH MD Unavailable SOPHIE HOUGH MD Unavailable [phone] PROBLEMS Condition Status Date Provider Notes Screening active Ganesh Lares MD Hypertension active Ganesh Lares MD Anxiety active Ganesh Lares MD Obesity active Ganesh Lares MD Abnormal electrocardiogram active Ganesh bowers MD ENCOUNTERS Date Type Provider Location Encounter Diag nosis - In-person encounter Office Visit Ganesh Lares MD [facility] - In-person encounter Office Visit Ganesh Lares MD [facility] ScreeningHypertensionAnxietyObesityAbnor mal electrocardiogram VITAL SIGNS Date Observation Value Provider Body Mass Index (Ratio) 32.99 kg/m2 Bryan Lares MD blood pressure, diastolic 91 mm[Hg] Ch astany Jacob blood pressure, systolic 136 mm[Hg] Pilar stity Cecil oxygen saturation, oximetry 98 % Pilarstity Cecil pulse rate 59 /min Pilarstity Cecil weight E&M 217 [lb_av] Mary Jacob respiratory rate E&M 18 /min Keke Jacob height E&M 68 [in_i] [facility] Body [facility] Index (Ratio) 33.45 kg/m2 Bryan Lares MD blood pressure, diastolic 106 mm[Hg] Janiya nkLogic blood pressure, systolic 156 mm[Hg] Dalila kLog blood pressure, cuff size regular Chely Dangelo blood pressure, diastolic 106 mm[Hg] Chely Dangelo blood pressure, systolic 156 mm[Hg] Latasha Dangelo blood pressure, resting No Carlos Dangelo oxygen saturation, oximetry 98 % Kalpana Dangelo respiratory rate E&M 18 /min Nafisa Dangelo pulse rate 93 /min Kalpana tomlinson weight E&M 220 [lb_av] Kalpana tomlinson height E&M 68 [in_i] Kalpana tomlinson ALLERGIES Allergy Name Onset Date Reaction Criticality Status LATEX High Criticality active LATEX High Criticality active HISTORY OF MEDICATION USE Medication Status Instructions Dates Provider Indications Com ments escitalopram oxalate 5 mg tablet active TAKE 1 TABLET BY MOUTH EVERY DAY IN THE MORNING [facility] metoprolol tartrate 25 mg tablet completed Take 1 tablet by mouth twice a day 8 - 6 Ganesh Lares MD SOCIAL HISTORY Date Observation Value Provider social history E&M Marital Statu s: C hildren: 1 O ccupation: Tubular Stock Glass Bulb Machine Former Smoking History: P namrata has never smoked. Ganesh Lares MD social history reviewed E&M revi ewed - no changes required Ganesh Lares MD appendectomy, history of Appendectomy, Hx of Ganesh Lares MD chewing tobacco use Current Mary Jacob smoking status Never smoker Mary Madden e social history E&M Marital Statu s: Ivan john: 1 O ccupation: Tubular Stock Glass Bulb Machine Former Smoking History: Mark ott has never smoked. Ganesh Lares MD social history reviewed E&M revi ewed - no changes required Ganesh Lares MD smoking status Never smoker Kalpana vela chewing tobacco use Current Rustam Dangelo INSURANCE PROVIDERS Payer name Policy type / Coverage type [place] green party ID BLUE [facility] Blue Shield [id number] TREATMENT PLAN Date Name Performer [id number],S, Ganesh mcnamara MD [id number],S, Ganesh mcnamara MD [id number],C,BP normal at home. Ganesh Lares MD [id number],S, Ganesh mcnamara MD [id number],S, Ganesh mcnamara MD [id number],N,Start metopro lol Ganesh Lares MD Cardiology Ganesh Lares MD Cardiology Ganesh Lares MD Cardiology:BP normal at home. Ra elliot Lares MD Cardiology Ganesh Lares MD Cardiology Ganesh Lares MD Cardiology:Start metoprolol Bryan Lares MD Date Name Renal Artery Duplex Complete Echo HISTORY OF PROCEDURES Procedure Date Procedure Name Provider Procedure Notes S tatus EKG Ganesh Lares MD complete d
--- OUTSIDE RECORDS SUMMARY | 2024-08-22 21:49 | XMS_ITS | Encounter Summary ---
Author Name [facility] [place] [facility] [place] Address [address] [place] [address] Care Team Providers Care Shingles Roofer Name Role Phone USAMA LOPEZ Primary Care [...] TER & EMPLO YERS Mar 11, 2018 [id number] [phone] AXEL MULTANI SPOUSE [employer] [place] PREFERRED PROVIDER ORGANIZAT ION (PPO) TEAMS TER + EMPLO YERS Mar 11, 2018 [id number] [phone] AXEL MULTANI SPOUSE LDI RX PRESCRIPT ION TEAMS TER & EMPLO YERS Mar 11, 2018 [id number] [phone] GAYLA MULTANI SPOUSE Selected Encounter This section includes the information on record at [place] for the Encounter. Date/Time Encounter Type Encounter Description Reason Provider Source Jun 30, 2024 10:18 AM Outpatient Encounter COMMUNITY CARE CONSULT MELANY BROOKS IHRamesh Encounter Template Text not used by CT Plan of Treatment: Future Appointments (+ 6 months) and Future Tests (+/- 45 days) The Plan of Treatment section includes future care activities for the patient [facility] This section includes future appointments and future orders which are active, pending or scheduled. Future Appointments This section includes appointments that were scheduled to occur 6 months from the date of the Encounter, up to a maximum of 20 appointments. The data comes from all [facility]. Appointment Date/Time Appointment Type Appointme nt Facility Name Jul 08, 2024 10:00 AM AMBULATORY - MEDICINE [facility] July 30, 2024 11:30 AM AMBULATORY - MEDICINE [facility] August 06, 2024 01:00 PM AMBULATORY - MEDICINE [facility] Aug 12, 2024 10:00 AM AMBULATORY MEDICINE [facility] Aug 26, 2024 10:00 AM AMBULATORY MEDICINE [facility] Sep 18, 2024 11:00 AM AMBULATORY - MEDICINE [facility] Oct 12, 2024 03:15 PM AMBULATORY - MEDICINE [facility] Social History: Smoking Status (Most current) and Tobacco Use (All prior to encounter date) This section includes the most current, and the historical, smoking and tobacco- related health factors from the [place] facility where the Encounter took place. Current Smoking Status This section includes the most current smoking, or tobacco-related health factor, from the [place] facility where the Encounter took place. Date/Time Current Smoking Status Comment Laly ity Jan 30, 2023 03:14 PM VA-TOBACCO FORMER USER [facility] Tobacco Use History This section includes a history of the smoking, or tobacco-related health factors, that were collected on or before the date of the Encounter. The data comes from the [place] facility where the Encounter took place. Date/Time Smoking Status/Tobacco Use Comment F acility Jan 30, 2023 03:[address]-TOBACCO QUIT 5 TO < 15 YRS [facility] Nov 04, 2017 09:12 AM QUIT TOBACCO >12 M O & <7 YRS AGO [facility] Encounter Notes: All associated encounter notes This section contains the clinical notes associated to the Encounter. Date/Time Encounter Note(s) Provider Source Jun 30, 2024 10:18 AM LETTERS: LOCAL TITLE: COMMUNITY CARE-REQUEST FOR SERVICES (RFS) LETTER ST STANDARD TITLE: LETTERS DATE OF NOTE: JUN 30, 2024@10:18 ENTRY DATE: JUN 30, 2024@10:18:28 AUTHOR: MELANY BROOKS EXP COSIGNER: URGENCY: STATUS: [facility] [address] [place] [address] Dr. Angel Horan [address] [place] [address] [place] [address] Dear Provider, Information: Patient Name: GAYLA MULTANI Date of : Nov [facility] has received the request Referral to general surgery for right up from you for services that were not originally authorized in the [facility] for this [place]. Upon review, the following determination has been made: Service will be provided by the [place] Medical Facility under the [facility] Provider's name. Should you have questions, please contact us at [phone] to speak with a patient waiter/waitress room service. As a reminder, if applicable, return medical records within 30 days for routine services. Sincerely, Sincerely, MELANY BROOKS Registered Nurse MELANY BROOKS [facility]
--- OUTSIDE RECORDS SUMMARY | 2024-08-22 21:49 | XMS_ITS | Encounter Summary ---
Author Name [facility] [place] [facility] [place] Address [address] [place] [address] Care Team Providers Care Onyx Chip Terrazzo Worker Name Role Phone USAMA LOPEZ Primary Care [...] TER & EMPLO YERS Mar 11, 2018 [id number] [phone] ROMMEL VELÁSQUEZ SPOUSE [place] PREFERRED PROVIDER ORGANIZAT ION (PPO) TEAMS TER + EMPLO YERS Mar 11, 2018 [id number] [phone] ROMMEL VELÁSQUEZ SPOUSE LDI RX PRESCRIPT ION TEAMS TER & EMPLO YERS Mar 11, 2018 [id number] [phone] GAYLA VELÁSQUEZ SPOUSE Selected Encounter This section includes the information on record at [place] for the Encounter. Date/Time Encounter Type Encounter Description Reason Provider Source Aug 12, 2024 10:00 AM PSYTX W PT 30 MINUTES PCMHI INDIV ICD-10-CM F41.9 Anxiety disorder, unspecified RAYMUNDO SANCHEZ Ramesh Encounter Template Text not used by [place] Assessments - Encounter Diagnoses This section includes the primary and secondary diagnoses documented for the Encounter. Date/Time Primary/Secondary Diagnosis Diagnosis Name Provider Source Aug 12, 2024 10:10 AM PRIMARY Anxiety disorder, unspecified RAYMUNDO SANCHEZ [facility] Aug 12, 2024 10:10 AM SECONDARY Depression, unspecified RAYMUNDO SANCHEZ [facility] Plan of Treatment: Future Appointments (+ 6 months) and Future Tests (+/- 45 days) The Plan of Treatment section includes future care activities for the patient from all [place] [facility]. This section includes future appointments and future orders which are active, pending or scheduled. Future Appointments This section includes appointments that were scheduled to occur 6 months from the date of the Encounter, up to a maximum of 20 appointments. The data comes from all [place] treatment facilities. Appointment Date/Time Appointment Type Appointme nt Facility Name Aug 26, 2024 10:00 AM AMBULATORY - MEDICINE [facility] Sep 18, 2024 11:00 AM AMBULATORY - MEDICINE [facility] Oct 12, 2024 03:15 PM AMBULATORY - MEDICINE [facility] Social History: Smoking Status (Most current) and Tobacco Use (All prior to encounter date) This section includes the most current, and the historical, smoking and tobacco- related health factors from the [place] facility where the Encounter took place. Current Smoking Status This section includes the most current smoking, or tobacco-related health factor, from the [place] facility where the Encounter took place. Date/Time Current Smoking Status Comment Laly ity Feb 07, 2022 11:00 AM VA-TOBACCO FORMER USER [facility] Tobacco Use History This section includes a history of the smoking, or tobacco-related health factors, that were collected on or before the date of the Encounter. The data comes from the [place] facility where the Encounter took place. Date/Time Smoking Status/Tobacco Use Comment F accassandra Feb 07, 2022 11:00 AM [place]-TOBACCO QUIT 5 TO < 15 YRS [facility] Feb 28, 2018 01:06 PM VA-TOBACCO FORMER USER [facility] Feb 28, 2018 01:06 PM VA-TOBACCO QUIT 1 TO < 5 YRS [facility] Dec 13, 2017 08:31 AM [place]-TO[place] FORMER US[place] [facility] Dec 13, 2017 08:31 AM VA-TOBACCO QUIT 1 TO < 5 YRS [facility] Encounter Notes: All associated encounter notes This section contains the clinical notes associated to the Encounter. Date/Time Encounter Note(s) Provider Source Aug 12, 2024 10:05 AM PSYCHOLOGY OUTPATI ENT NOTE: LOCAL TITLE: PRIMARY CARE PSYCHOLOGY NOTE [facility] STANDARD TITLE: PSYCHOLOGY OUTPATIENT NOTE DATE OF NOTE: AUG 12, 2024@10:05 ENTRY DATE: AUG 12, 2024@10:05:50 AUTHOR: RAYMUNDO SANCHEZ COSIGNER: URGENCY: STATUS: COMPLETED NAME: GAYLA VELÁSQUEZ DATE OF : Nov TIME SPENT WITH PATIENT: 30 minutes DIAGNOSIS BEING TREATED: Unspecified Anxiety D/O; Unspecified Depression CPT Code: 31780 NATURE OF ENCOUNTER: follow up visit SESSION FORMAT: [ ] [id number] [X] Video Telehealth [ ]Phone Confirmed [place]'s location and phone number for virtual appointment. [X]Yes [ ]N/A SESSION NUMBER: 4 RELEVANT HISTORICAL DEVELOPMENTS SINCE LAST CONTACT: - post- complications INTERVENTION/TREATMENT PROVIDED [X] [place] [X] Shared [...] Therapist: - Assessed sxs and fx'ing. Mood sxs remain elevated, but appear stable. denies experiencing increase in depressive sxs s/t delivery and specifically states that she does not believe she is experiencing depression. Increased anxiety sxs s/t post- medical issues. - Discussed delivery and experienced post- complications in more detail. Provided with empathetic and supportive listening and appropriate validation. Assited with processing related thoughts and feelings and challenging identified distorted cognitions. [place] continues to demonstrate good awareness of issues over which she has control vs. those that she does not and continues to focus on the former. Discussed current concerns in more detail and assisted with problem solving and identification of potential solutions. Reviewed communication strategies that can utilize to address concerns with others, including her healthcare providers. Commended on her focus on self-care. Reviewed mood and stress/anxiety management strategies. ASSESSMENT MEASURES USED: PHQ-9 not administered during today's encounter. Score = 17 (Moderately Severe range, Q#9=0) when administered on Jul 03. BOO-7 not administered during today's encounter. Score = 19 (Severe range) when administered on Jul 03. [X]Functional/Symptom Assessment: Symptom(s)/Function(s) tracked by changes in frequency, intensity or duration since last visit: mood sxs remain elevated, but appear stable, denied feeling depressed, increased anxiety s/t complications ROS (by verbal report): Sleep: fragmented - attributes to having and medical conditions Interest: remains decreased, but improvement noted Guilt: continues to endorse, but to a lesser degree Energy: remains decreased, continues to report significant anergia Concentration: remains decreased, continues to attribute to dx of ADHD Appetite: focusing on eating more fruits and vegetables Collaboratively discussed outcomes related to assessment and treatment progress and measures will continue to be monitored. MEASURABLE TREATMENT GOALS FOR THIS EPISODE OF CARE: Goals were developed with [place] using shared decision making. 1. GOAL/OBJECTIVES: decrease anxiety, in general and associated with pending specifically PROGRESS TOWARDS GOAL: increased stress and anxiety s/t complications RESPONSE TO INTERVENTIONS: 's participation/engagement: [X]The [place] participated actively in the current interventions. [ ]Other: The continues to consent to the current plan of care: Yes Comments: RISK ASSESSMENT: [X] NO CHANGE IN RISK FACTORS Related to Suicide or Homicide. did not report any current suicidal/homicidal ideation, plan, or intent. [place] did not appear to be at imminent [...] at the current level of care. -Comments: [place] was asked directly and denied SI/HI, to include any current or recent active or passive ideation. Specifically, denied any current or recent thoughts, feelings, urges, or desires for self-harm or harm to others, as well as any engagement in planning, preparatory bxs, gestures, or attempts. ASSIGNED WORK: 1. Continue to utilize recommended stress and anxiety management strategies. 2. Continue to utilize recommended mood management strategies. COLLABORATIVE RECOMMENDATIONS/PLAN: Collaboratively discussed outcomes related to assessment and treatment progress. Based on this discussion: [X] No changes to plan of care. expressed agreement with therapy tasks and [id number] plan. RTC placed for f/u appt. V15-VA Video Connect/Video to Home: VA Video Connect (VVC)/Video to home template v1.5 Visit conducted by synchronous telehealth. Location/emergency number confirmed. Environment surveyed and all participants identified. Virtual conference room locked. VVC/Video to home appointment information: The following items were reviewed: - The nature of telehealth, its benefits, and risks. - Confidentiality and its limits. - The importance of having a confidential location for the service. - The emergency plan. - The appointment should be treated like an in person appointment (no smoking or driving during session, showing up fully dressed, etc.) *The Virtual Medical Room was locked for this encounter. *A survey of the environment was conducted and it is appropriate to conduct a VVC appointment. *Confirmed 's Non-VA location for this appointment: [facility] [address] [place] [id number] Address and phone number verified with [place]. Address: Phone: Emergency Contact: Name: Rommel Velásquez *[place] was notified of right to decline Telehealth services and eligibility for other options. consented to be seen via VVC. EMERGENCY PLAN In the event of an emergency, the [place] or family will call emergency services, if capable. The Teleprovider will remain in the virtual medical room until emergency response arrives and handoff to emergency services is complete. If is unable to make emergency call, the Teleprovider is to call the national [employer] service at [phone] and ask to be connected to emergency services for the 's location. 's Crisis Line: Dial 988 then press 1, or text [phone] Office of Connected Care Helpdesk ([facility]): [phone] or [phone] Laterality (patient's right and/or left side) confirmed prior to intervention during video visit. Verified Provider's location and contact information for this appointment: [facility] [address] [place] [id number] x 2, 3 /es/ RAYMUNDO SANCHEZ, PH.D. Clinical Psychologist; [facility] Signed: 08/12/2024 12:43 RAYMUNDO SANCHEZ [facility]
--- OUTSIDE RECORDS SUMMARY | 2024-08-22 21:49 | XMS_ITS ---
Author Name [facility] [place] [facility] [place] Address [address] [place] [address] Care Team Providers Care Water Filter Cleaner Name Role Phone USAMA LOPEZ Primary Care [...] TER & EMPLO YERS Mar 11, 2018 [id number] [phone] AXEL MULTANI SPOUSE [employer] [place] PREFERRED PROVIDER ORGANIZAT ION (PPO) TEAMS TER + EMPLO YERS Mar 11, 2018 [id number] [phone] AXEL MULTANI SPOUSE LDI RX PRESCRIPT ION TEAMS TER & EMPLO YERS Mar 11, 2018 [id number] [phone] GAYLA MULTANI SPOUSE Selected Encounter This section includes the information on record at [place] for the Encounter. Date/Time Encounter Type Encounter Description Reason Pro vider Source Jun 29, 2024 04:03 PM Outpatient Encounter COMMUNITY CARE CONSULT IHE Encounter Template Text not used by [facility] Plan of Treatment: Future Appointments (+ 6 months) and Future Tests (+/- 45 days) The Plan of Treatment section includes future care activities for the patient from all [place] [facility]. This section includes future appointments and future orders which are active, pending or scheduled. Future Appointments This section includes appointments that were scheduled to occur 6 months from the date of the Encounter, up to a maximum of 20 appointments. The data comes from all [facility]. Appointment Date/Time Appointment Type Appointme nt Facility Name Jul 08, 2024 10:00 AM AMBULATORY - MEDICINE [facility] July 30, 2024 11:30 AM AMBULATORY - MEDICINE [facility] August 06, 2024 01:00 PM AMBULATORY - MEDICINE [facility] Aug 12, 2024 10:00 AM AMBULATORY - MEDICINE [facility] Aug 26, 2024 10:00 AM AMBULATORY MEDICINE [facility] Sep 18, 2024 11:00 AM AMBULATORY - MEDICINE [facility] Oct 12, 2024 03:15 PM AMBULATORY - MEDICINE [facility] Social History: Smoking Status (Most current) and [...] Date/Time Current Smoking Status Comment Facil ity Jan 30, 2023 03:14 PM [place]-TOBACCO QUIT 5 TO < 15 YRS [facility] Tobacco Use History This section includes a history of the smoking, or tobacco-related health factors, that were collected on or before the date of the Encounter. The data comes from the [place] facility where the Encounter took place. Date/Time Smoking Status/Tobacco Use Comment F acility Jan 30, 2023 03:14 PM [place]-TOBACCO QUIT 5 TO < 15 YRS [facility] Nov 04, 2017 09:12 AM QUIT TOBACCO >12 M O & <7 YRS AGO [facility] Encounter Notes: All associated encounter notes This section contains the clinical notes associated to the Encounter. Date/Time Encounter Note(s) Provider Source Jun 29, 2024 04:03 PM NONVA NOTE: LOCAL TITLE: COMMUNITY CARE-REQUEST FOR SERVICE NOTE [facility] STANDARD TITLE: NONVA NOTE DATE OF NOTE: JUN 29, 2024@16:03 ENTRY DATE: JUN 29, 2024@16:04:01 AUTHOR: MELANY BROOKS EXP COSIGNER: URGENCY: STATUS: COMPLETED COMMUNITY CARE-REQUEST FOR SERVICE NOTE [facility] Has ADDENDA Request for Services (RFS) documentation has been sent for scanning to [facility] Community Care Consult: COMMUNITY CARE-[facility] MATERNITY Consult No: [id number] Date sent to scanning: Jun A Request for Service (RFS) form [id number] has been received which includes the following: Care Requested:Referral to general surgery for right upper quadrant pain. Need a cholecystectomy. ICD-10 Dx code: R 10.00 Date VA received request: Jun Date service required: Jun Requesting Community Provider Information: Name of Ordering Provider: Dr. Angel Horan Office:[employer] Address, City, State: [address] [place] [address] Dr Colbert [address] [place] [address] Referring to: Dr. Markie Avendaño [address] [place] [address] Dr Colbert [address] [place] [address] P:[phone]. RFS uploaded to [employer]. Alerting Dr. Lopez. /debi/ MELANY BROOKS Registered Nurse Signed: 06/29/2024 16:16 Receipt Acknowledged By: 06/30/2024 08:40 /debi/ USAMA LOPEZ Staff Physician 06/30/2024 ADDENDUM STATUS: COMPLETED VA surgery consult placed. /debi/ USAMA LOPEZ Staff Physician Signed: 06/30/2024 08:42 MELANY BROOKS [facility]
--- OUTSIDE RECORDS SUMMARY | 2024-08-22 21:49 | XMS_ITS | Encounter Summary ---
Author Name [facility] [place] [facility] [place] Address [address] [place] [address] Care Team Providers Care Sand Screener Name Role Phone USAMA LOPEZ Primary Care [...] TER & EMPLO YERS Mar 11, 2018 [id number] [phone] AXEL MULTANI SPOUSE [place] PREFERRED PROVIDER ORGANIZAT ION (PPO) TEAMS TER + EMPLO YERS Mar 11, 2018 [id number] [phone] AXEL MULTANI SPOUSE LDI RX PRESCRIPT ION TEAMS TER & EMPLO YERS Mar 11, 2018 [id number] [phone] GAYLA MULTANI SPOUSE Selected Encounter This section includes the information on record at [place] for the Encounter. Date/Time Encounter Type Encounter Description Reason Provider Source Mar 26, 2024 02:04 PM Outpatient Encounter COMMUNITY CARE CONSULT CAESAR,LUIS E M IHE Encounter Template Text not used by [facility] Plan of Treatment: Future Appointments (+ 6 months) and Future Tests (+/- 45 days) The Plan of Treatment section includes future care activities for the patient from all [place] treatmentfacilities. This section includes future appointments and future orders which are active, pending or scheduled. Future Appointments This section includes appointments that were scheduled to occur 6 months from the date of the Encounter, up to a maximum of 20 appointments. The data comes from all [place] treatment facilities. Appointment Date/Time Appointment Type Appointme nt Facility Name Apr 09, 2024 11:00 AM AMBULATORY - MEDICINE [facility] Apr 14, 2024 03:30 PM AMBULATORY - MEDICINE [facility] Apr 21, 2024 08:30 AM AMBULATORY - MEDICINE [facility] Apr 22, 2024 11:30 AM AMBULATORY - NONE [facility] Leonel Schwartz [facility] Apr 28, 2024 11:00 AM AMBULATORY - MEDICINE [facility] May 26, 2024 11:00 AM AMBULATORY - MEDICINE [facility] Jun 12, 2024 02:00 PM AMBULATORY - MEDICINE [facility] Jun 15, 2024 02:00 PM AM[facility]ULATORY - NONE [facility] Jun 17, 2024 11:00 AM AMBULATORY - MEDICINE [facility] Jun 24, 2024 11:00 AM AMBULATORY - MEDICINE [facility] Jun 24, 2024 02:00 PM AMBULATORY - MEDICINE [facility] Jul 08, 2024 10:00 AM AMBULATORY - MEDICINE [facility] July 30, 2024 11:30 AM AMBULATORY - MEDICINE [facility] August 06, 2024 01:00 PM AMBULATORY - MEDICINE [facility] Aug 12, 2024 10:00 AM AMBULATORY - MEDICINE [facility] Aug 26, 2024 10:00 AM AMBULATORY - MEDICINE [facility] Sep 18, 2024 11:00 AM AMBULATORY - MEDICINE [facility] Social History: Smoking Status (Most current) and Tobacco Use (All prior to encounter date) This section includes the most current, and the historical, smoking and tobacco- related health factors from the [facility] facility where the Encounter took place. Current Smoking Status This section includes the most current smoking, or tobacco-related health factor, from the [place] facility where the Encounter took place. Date/Time Current Smoking Status Comment Laly ity Jan 30, 2023 03:14 PM VA-TOBACCO FORMER USER [facility] Tobacco Use History This section includes a history of the smoking, or tobacco-related health factors, that were collected on or before the date of the Encounter. The data comes from the [place] facility where the Encounter took place. Date/Time Smoking Status/Tobacco Use Comment F acility Jan 30, 2023 03:14 PM VA-TOBACCO QUIT 5 TO < 15 YRS [facility] Nov 04, 2017 09:12 AM QUIT TOBACCO >12 M O & <7 YRS AGO [facility] Encounter Notes: All associated encounter notes This section contains the clinical notes associated to the Encounter. Date/Time Encounter Note(s) Provider Source Mar 26, 2024 02:04 PM NONVA NOTE: LOCAL TITLE: COMMUNITY CARE-REQUEST FOR SERVICE NOTE [facility] STANDARD TITLE: NONVA NOTE DATE OF NOTE: MAR 26, 2024@14:04 ENTRY DATE: MAR 26, 2024@14:04:47 AUTHOR: MELANY BROOKS COSIGNER: URGENCY: STATUS: COMPLETED COMMUNITY CARE-REQUEST FOR SERVICE NOTE ST Has ADDENDA Request for Services (RFS) [facility] Consult: COMMUNITY CARE-ST MATERNITY Consult No: [id number] Date sent to scanning: Mar A Request for Service (RFS) form [id number] has been received which includes the following: Care Requested: Requesting cardiology consult for history of pulmonary edema and abnormal echocardiogram. Referring to: Dr. Bertha Barker [address] [facility] [address] [place] [address] P: [phone] F: [phone] ICD-10 Dx code: Z87.09, R93.1 Date VA received request: Mar Date service required: Mar Requesting Community Provider Information: Name of Ordering Provider: Dr. Angel Horan MD Office: [facility] VEHICLE DRIVER Address, City, State: [address] [place] [address] Dr Colbert [address] [place] [phone] Lopez, please review RFS and visit notes in [facility]. /debi/ MELANY BROOKS Registered Nurse Signed: 03/26/2024 14:15 Receipt Acknowledged By: 03/26/2024 15:02 /debi/ USAMA LOPEZ Staff Physician 03/26/2024 ADDENDUM STATUS: COMPLETED [place] cardiology consult placed for review. /debi/ USAMA LOPEZ Staff Physician Signed: 03/26/2024 15:09 03/31/2024 ADDENDUM STATUS: COMPLETED Request for Services (RFS) [facility]A Approval/Disapproval Service has been Approved: New community care consult/order created. Service will be ordered by the [place] Medical Facility under the [facility] Provider's name. /debi/ ALISA MAYNARD REGISTERED NURSE Signed: 03/31/2024 10:16 MELANY BROOKS [facility]
--- OUTSIDE RECORDS SUMMARY | 2024-08-22 21:49 | XMS_ITS ---
Author Name [facility] [facility] [place] [facility] [place] Address [address] [place] [address] Care Team Providers Care Financial Dealers Name Role Phone USAMA LOPEZ Primary Care [...] TER & EMPLO YERS Mar 11, 2018 [id number] [phone] MULTANI, AXEL SPOUSE [place] PREFERRED PROVIDER ORGANIZAT ION (PPO) TEAMS TER + EMPLO YERS Mar 11, 2018 [id number] [phone] RANGEL AXEL SPOUSE LDI RX PRESCRIPT ION TEAMS TER & EMPLO YERS Mar 11, 2018 [id number] [phone] GAYLA MULTANI SPOUSE Selected Encounter This section includes the information on record at [place] for the Encounter. Date/Time Encounter Type Encounter Description Reason Provider Source August 04, 2024 08:37 AM [facility] OL DIG ASSMT&MGMT 5-10 CLINICAL PHARMACY ICD-10-CM Z86.711 Personal history of pulmonary embolism ZOILA LARA IHE Encounter Template Text not used by [place] Assessments - Encounter Diagnoses This section includes the primary and secondary diagnoses documented for the Encounter. Date/Time Primary/Secondary Diagnosis Diagnosis Name Provider Source August 04, 2024 08:47 AM PRIMARY Personal history of pulmonary embolism ZOILA LARA [facility] Plan of Treatment: Future Appointments (+ 6 months) and Future Tests (+/- 45 days) The Plan of Treatment section includes future care activities for the [facility] [place] [facility] This section includes future appointments and future orders which are active, pending or scheduled. Future Appointments This section includes appointments that were scheduled to occur 6 months from the date of the Encounter, up to a maximum of 20 appointments. The data comes from all [facility] facilities. Appointment Date/Time Appointment Type Appointme nt Facility Name August 06, 2024 01:00 PM AMBULATORY - MEDICINE [facility] Aug 12, 2024 10:00 AM AMBULATORY - MEDICINE [facility] Aug 26, 2024 10:00 AM AMBULATORY - MEDICINE [facility] Sep 18, 2024 11:00 AM AMBULATORY - MEDICINE [facility] Oct 12, 2024 03:15 PM AMBULATORY - MEDICINE [facility] Social History: Smoking Status (Most current) and Tobacco Use (All prior to encounter date) This section includes the most current, and the historical, smoking and tobacco- related health factors from the [place] facility where the Encounter took place. Current Smoking Status This section includes the most current smoking, or tobacco-related health factor, from the [place] facility where the Encounter took place. Date/Time Current Smoking Status Comment Facil ity Jan 30, 2023 03:14 PM VA-TOBACCO FORMER USER [facility] Tobacco Use History This section includes a history of the smoking, or tobacco-related health factors, that were collected on or before the date of the Encounter. The data comes from the [place] facility where the Encounter took place. Date/Time Smoking Status/Tobacco Use Comment F acility Jan 30, 2023 03:14 PM [place]-TOBACCO QUIT 5 TO < 15 YRS [facility] Nov 04, 2017 09:12 AM QUIT TOBACCO >12 M O & <7 YRS AGO [facility] Encounter Notes: All associated encounter notes This section contains the clinical notes associated to the Encounter. Date/Time Encounter Note(s) Provider Source August 04, 2024 08:37 AM PHARMACY CONSULT: LOCAL TITLE: PHARMACY PRIOR APPROVAL CONSULT ST STANDARD TITLE: PHARMACY CONSULT DATE OF NOTE: AUGUST 04, 2024@08:37 ENTRY DATE: AUGUST 04, 2024@08:37:45 AUTHOR: ZOILA LARA EXP COSIGNER: URGENCY: STATUS: COMPLETED The medical record has been reviewed with regard to this prior authorization drug request. Medication requested: RIVAROXABAN 20MG TAB Medication indication: PE Medical history relevant to this request: Pt w/ recent PE following , started on rivaroxaban at [facility] and initial fill via [facility], now needing remainder of therapy to be filled at [place]. No CIs to use noted, labs indicate safe use. Noted low hgb, will monitor. Pt is of child bearing age, s/p recent delivery. Noted pt was educated to formula feed d/t questionable safety of rivaroxaban in . Will enroll pt in antico clinic for education and monitoring. The request is approved: rivaroxaban 20mg Once daily,. #30, 2RF - No formulary-preferred alternative TIME REVIEWING CHART:9. (minutes) Hemoglobin done on the outside VALUE: 8.1 Date: July 30, 2024 Location: [facility] HCT done on the outside VALUE: 24.6 Date: July 30, 2024 Location: [facility] Creatinine (serum) done on the outside VALUE: 0.79 Date: July 30, 2024 Location: [facility] Platelets done on the outside VALUE: 320 Date: July 24, 2024 Location: [facility] /debi/ ZOILA LARA, PHARM.D, BCPS CLINICAL PHARMACIST Signed: 08/04/2024 08:52 ZOILA LARA [facility]
--- OUTSIDE RECORDS SUMMARY | 2024-08-22 21:49 | XMS_ITS ---
Author Name [facility] [place] [facility] [place] [facility] [place] Address [address] [place] [address] Care Team Providers Care Commissary Worker Name Role Phone USAMA LOPEZ Primary [...] TER & EMPLO YERS Mar 11, 2018 [id number] [phone] MULTANIAXEL DOUGHERYT SPOUSE [place] PREFERRED PROVIDER ORGANIZAT ION (PPO) TEAMS TER + EMPLO YERS Mar 11, 2018 [id number] [phone] MULTANI, AXEL SPOUSE LDI RX PRESCRIPT ION TEAMS TER & EMPLO YERS Mar 11, 2018 [id number] [phone] AGUSTINA MULTANIY SPOUSE Selected Encounter This section includes the information on record at [place] for the Encounter. Date/Time Encounter Type Encounter Description Reason Provider Source Apr 14, 2024 03:30 PM OFF/OP CNSLTJ NEW/EST LOW 30 DERMATOLOGY ICD-10-CM 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m of uncertain behavior of skin CHANTALE OROPEZA Ramesh Encounter Template Text not used by [place] Assessments - Encounter Diagnoses This section includes the primary and secondary diagnoses documented for the Encounter. Date/Time Primary/Secondary Diagnosis Diagnosis Name Provider Source May 05, 2024 01:30 PM PRIMARY [facility]oplasm of uncertain behavior [facility] May 05, 2024 01:30 PM SECONDARY Other seborrheic keratosis [facility] Plan of Treatment: Future Appointments (+ 6 months) and Future Tests (+/- 45 days) The Plan of Treatment section includes future care activities for the patient from all [place] treatment[place]ilities. This section includes future appointments and future orders which are active, pending or scheduled. Future Appointments This section includes appointments that were scheduled to occur 6 months from the date of the Encounter, up to a maximum of 20 appointments. The data comes from all [place] treatment facilities. Appointment Date/Time Appointment Type Appointme nt Facility Name Apr 21, 2024 08:30 AM AMBULATORY - MEDICINE [facility] Apr 22, 2024 11:30 AM AMBULATORY - NONE YENNI Leonel [facility] Apr 28, 2024 11:00 AM AM[facility]ULATORY [facility]ICINE [facility] May 26, 2024 11:00 AM AM[facility]ULATORY - MEDICINE [facility] Jun 12, 2024 02:00 PM AM[facility]ULAT[facility] - [facility] Jun 15, 2024 02:00 PM AMBULATORY - NONE [facility] Jun 17, 2024 11:00 AM AMBULATORY - MEDICINE [facility] [facility] Jun 24, 2024 11:00 AM AMBULATORY - MED[facility] Jun 24, 2024 02:00 PM AMBULATORY - MEDICINE [facility] [facility] Jul 08, 2024 10:00 AM AMBULATORY - [facility] July 30, 2024 11:30 AM AMBULATORY - MEDICINE [facility] August 06, 2024 01:00 PM AMBULATORY - MED[facility] Aug 12, 2024 10:00 AM AM[facility]AT[facility] - [facility] Aug 26, 2024 10:00 AM [facility] - MEDICINE [facility] Sep 18, 2024 11:00 AM AMBULATORY - MEDICINE [facility] Oct 12, 2024 03:15 PM AMBULATORY - MEDICINE [facility] Social History: Smoking Status (Most current) and Tobacco Use (All prior to encounter date) This section includes the most current, and the historical, smoking and tobacco- related health factors from the [facility] where the Encounter took place. Current Smoking Status This section includes the most current smoking, or tobacco-related health factor, from the [place] facility where the Encounter took place. Date/Time Current Smoking Status Comment Laly ity Nov 27, 2023 11:00 AM AR-TOBACCO FORMER USER [facility] Tobacco Use History This section includes a history of the smoking, or tobacco-related health factors, that were collected on or before the date of the Encounter. The data comes from the [facility] where the Encounter took place. Date/Time Smoking Status/Tobacco Use Comment F acility Nov 27, 2023 11:00 AM AR-TOBACCO FORMER USER [facility] Nov 27, 2023 11:00 AM VA-TOBACCO QUIT 5 TO < [address] [facility] Jul 04, 2017 01:30 PM QUIT TOBACCO >12 MO & <[address] [facility] Encounter Notes: All associated encounter notes This section contains the clinical notes associated to the Encounter. Date/Time Encounter Note(s) Provider Source Apr 14, 2024 03:06 PM DERMATOLOGY CONSUL T: LOCAL TITLE: DERMATOLOGY CONSULT [facility] STANDARD TITLE: DERMATOLOGY CONSULT DATE OF NOTE: APR 14, 2024@15:06 ENTRY DATE: APR 14, 2024@15:06:37 AUTHOR: SAMUEL ALVARENGA EXP COSIGNER: CHANTALE OROPEZA URGENCY: STATUS: COMPLETED DERMATOLOGY CONSULT ST Has ADDENDA NOTE GAYLA MULTANI is a WHITE FEMALE Presenting for: 33yo female with a small papule in the right ear that continues to flake and drain, with recurrent scab. Also with small flat scaly lesion on forehead near hairline that has returned after treatment x 2. Would like Dermatology for further eval/tx. Spot on hairline comes and goes but not present currently. Spot right ear present for a year or so, intermittently crusts but has never bled and is not painful. Spot on right abd that is new. Allergies: LATEX GLOVE, DULOXETINE ROS: no fever or chills, no recent unintended weight change, no non-healing sores Physical Exam: 1-2mm very thin very slightly scaly pink papule right conchal bowl Stuck on appearing brown papule right abdomen [place] scale ears, scalp Otherwise General Appearance: Well-appearing FEMALE, NAD Face: WNL Ears: WNL Scalp, Hair: WNL Neck: WNL Abd: WNL Assessment and Plan: # Neoplasm - right conchal bowl Ddx SKI, BCC - discussed in detail, discussed cannot provide definitive diagnosis for this lesion without biopsy We discussed options for management including biopsy today vs close observation and consideration of biopsy at N[facility] (with curette) Patient opts for close observation at this time - photodocumentation obtained HC 2.5% ointment AA prn crusting/itching Will call if enlarging/bleeding/painful # Seborrheic dermatitis HC as above # Seborrheic keratosis Benign reassurance RTC 6m /debi/ SAMUEL ALVARENGA MD DERMATOLOGY RESIDENT Signed: 04/14/2024 15:25 /debi/ Chantale Oropeza M.D., Ph.D. Curve Cleaner - Dermatology Cosigned: 04/14/2024 15:40 04/14/2024 ADDENDUM STATUS: COMPLETED Patient interviewed and examined. Discussed case with resident. Agree with history, physical examination, assessment, and plan. /debi/ Chantale Oropeza M.D., Ph.D. Curve Cleaner - Dermatology Signed: 04/14/2024 15:[address] [facility]
--- OUTSIDE RECORDS SUMMARY | 2024-08-22 21:49 | XMS_ITS | Encounter Summary ---
Author Name [facility] Organization [facility] Address [address] [place] [address] Care Team Providers Care Olericulture Teacher Name Role Phone USAMA LOPEZ Primary Care [...] TER & EMPLO YERS Mar 11, 2018 [id number] AXEL MULTANI SPOUSE [employer] [place] PREFERRED PROVIDER ORGANIZAT ION (PPO) TEAMS TER + EMPLO YERS Mar 11, 2018 [id number] AXEL MULTANI SPOUSE LDI RX PRESCRIPT ION TEAMS TER & EMPLO YERS Mar 11, 2018 [id number] [phone] AGUSTINA MULTANIY SPOUSE Selected Encounter This section includes the information on record at OR for the Encounter. Date/Time Encounter Type Encounter Description Reason Provider Source July 31, 2024 10:24 PM Outpatient Encounter GENERAL INTERNAL MEDICINE USAMA LOPEZ Encounter Template Text not used by OR Plan of Treatment: Future Appointments (+ 6 months) and Future Tests (+/- 45 days) The Plan of Treatment section includes future care activities for the [facility] This section includes future appointments and future orders which are active, pending or scheduled. Future Appointments This section includes appointments that were scheduled to occur 6 months from the date of the Encounter, up to a maximum of 20 appointments. The data comes from all [facility]. Appointment Date/Time Appointment Type Appointme nt Facility Name August 06, 2024 01:00 PM AMBULATORY - MEDICINE [facility] Aug 12, 2024 10:00 AM AMBULATORY - MEDICINE [facility] Aug 26, 2024 10:00 AM AMBULATORY - MEDICINE [facility] Sep 18, 2024 11:00 AM AMBULATORY - MEDICINE [facility] Oct 12, 2024 03:15 PM AMBULATORY - MEDICINE [facility] Social History: Smoking Status (Most current) and Tobacco Use (All prior to encounter date) This section includes the most current, and the historical, smoking and tobacco- related health factors from the [place] facility where the Encounter took place. Current Smoking Status This section includes the most current smoking, or tobacco-related health factor, from the [place] facility where the Encounter took place. Date/Time Current Smoking Status Comment Facil ity Jan 30, 2023 03:14 PM OR-TOBACCO QUIT 5 TO < 15 YRS [facility] Tobacco Use History This section includes a history of the smoking, or tobacco-related health factors, that were collected on or before the date of the Encounter. The data comes from the [place] facility where the Encounter took place. Date/Time Smoking Status/Tobacco Use Comment F acility Jan 30, 2023 03:14 PM VA-TOBACCO QUIT 5 TO < 15 YRS [facility] Nov 04, 2017 09:12 AM QUIT TOBACCO >12 M O & <7 YRS AGO [facility] Encounter Notes: All associated encounter notes This section contains the clinical notes associated to the Encounter. Date/Time Encounter Note(s) Provider Source August 03, 2024 01:04 PM ADDENDUM: LOCAL TITLE: Addendum STANDARD TITLE: ADDENDUM DATE OF NOTE: AUGUST 03, 2024@13:04:11 ENTRY DATE: AUGUST 03, 2024@13:04:11 AUTHOR: USAMA LOPEZ EXP COSIGNER: URGENCY: STATUS: COMPLETED Recommend f/u phone visit to discuss PE treatment. RTC placed for PCP visit. /ralf LOPEZ Staff Physician Signed: 08/03/2024 13:05 Receipt Acknowledged By: 08/04/2024 08:39 /debi/ Hardik Fuchs Rn, BSN REGISTERED NURSE ====== --- Original Document --- 07/30/24 [facility] SELF PRESENTING CARE COORD PLAN 657 STL: Emergency Notification Intake Date Presenting to the Facility: July Method of Contact: Notified from [employer] worklist Notification ID: [id number] [facility] Referral #: [id number] Clinical Review [facility] Name: Hospital: [facility] Address: [address] [place] [address] City: [place] State: [place] Zip Code: [address] [facility] Facility Point of Contact: Name: Phone: Chief complaint: HIGH BLOOD PRESSURE, BLOOD CLOT IN THE LUGS Primary Diagnosis: hypertension Disposition Admitted Route of Admission: Date of Admission: July Admitting Diagnosis: hypertension Community Care Provider: Confirm Level of Care: Secure hand-off via email to YVONNE RAMIRES RN. /june FREDRICK [employer] BET TAKER Signed: 07/31/2024 22:27 Receipt Acknowledged By: 08/03/2024 13:03 /ralf LOPEZ Staff Physician 08/04/2024 08:38 /debi/ Hardik Fuchs Rn, BSN REGISTERED NURSE 08/03/2024 ADDENDUM STATUS: COMPLETED Discharge Disposition Date of discharge: July Disposition Discharge to home per epic vet d/c. NO D/C SUMMAR AVAILABLE; WILL UPLOAD WHEN AVAILABLE Alerting PCP team to this note for continuity of care. /debi/ YVONNE VARGAS RN REGISTERED NURSE Signed: 08/03/2024 08:10 Receipt Acknowledged By: 08/03/2024 12:59 /debi/ USAMA LOPEZ Staff Physician 08/04/2024 08:39 /debi/ Hardik Fuchs Rn, BSN REGISTERED NURSE USAMA LOPEZ [facility] August 03, 2024 08:08 AM ADDENDUM: LOCAL TITLE: Addendum STANDARD TITLE: ADDENDUM DATE OF NOTE: AUGUST 03, 2024@08:08:18 ENTRY DATE: AUGUST 03, 2024@08:08:18 AUTHOR: YVONNE RAMIRES EXP COSIGNER: URGENCY: STATUS: COMPLETED Discharge Disposition Date of discharge: July Disposition Discharge to home per [facility] vet d/c. NO D/C SUMMAR AVAILABLE; WILL UPLOAD WHEN AVAILABLE Alerting PCP team to this note for continuity of care. /ralf VARGAS RN REGISTERED NURSE Signed: 08/03/2024 08:10 Receipt Acknowledged By: 08/03/2024 12:59 /ralf LOPEZ Staff Physician 08/04/2024 08:39 /debi/ aHrdik Fuchs Rn, BSN REGISTERED NURSE ====== --- Original Document --- 07/30/24 [facility] C[facility] SELF PRESENTING CARE COORD PLAN 657 [address]L: Emergency Notification Intake Date Presenting to the Facility: July Method of Contact: Notified from [employer] worklist Notification ID: [id number] [facility] Referral #: [id number] Clinical Review [facility] Name: Hospital: [facility] Address: [address] [place] [address] City: [place] State: [place] Zip Code: [address] Community Facility Point of Contact: Name: Phone: Chief complaint: HIGH BLOOD PRESSURE, BLOOD CLOT IN THE LUGS Primary Diagnosis: hypertension Disposition Admitted Route of Admission: Date of Admission: July Admitting Diagnosis: hypertension Community Care Provider: Confirm Level of Care: Secure hand-off via email to YVONNE RAMIRES RN. /june FREDRICK ADVANCED BET TAKER Signed: 07/31/2024 22:27 Receipt Acknowledged By: 08/03/2024 13:03 /debi/ USAMA LOPEZ Staff Physician 08/04/2024 08:38 /debi/ Hardik Fuchs Rn, BSN REGISTERED NURSE 08/03/2024 ADDENDUM STATUS: COMPLETED Recommend f/u phone visit to discuss PE treatment. RTC placed for PCP visit. /debi/ USAMA LOPZE Staff Physician Signed: 08/03/2024 13:05 Receipt Acknowledged By: * AWAITING SIGNATURE * HARDIK FUCHS SHAMEKA N [facility] July 30, 2024 10:24 PM NONVA NOTE: LOCAL TITLE: [facility] SELF PRESENTING CARE COORD PLAN STANDARD TITLE: NONVA NOTE DATE OF NOTE: JULY 30, 2024@22:24 ENTRY DATE: JULY 31, 2024@22:24:38 AUTHOR: OLIVA ALCALA COSIGNER: URGENCY: STATUS: COMPLETED [facility] SELF PRESENTING CARE COORD PLAN [address] Has ADDENDA Emergency Notification Intake Date Presenting to the Facility: July Method of Contact: Notified from [employer] worklist Notification ID: [id number] [facility] Referral #: [id number] Clinical Review [facility] Name: Hospital: [facility] Address: [address] [place] [address] City: [place] State: [place] Zip Code: [address] Community Facility Point of Contact: Name: Phone: Chief complaint: HIGH BLOOD PRESSURE, BLOOD CLOT IN THE LUGS Primary Diagnosis: hypertension Disposition Admitted Route of Admission: Date of Admission: July Admitting Diagnosis: hypertension Community Care Provider: Confirm Level of Care: Secure hand-off via email to YVONNE RAMIRES RN. /june FREDRICK ADVANCED BET TAKER Signed: 07/31/2024 22:27 Receipt Acknowledged By: 08/03/2024 13:03 /debi/ USAMA LOPEZ Staff Physician 08/04/2024 08:38 /debi/ Hardik Fuchs Rn, BSN REGISTERED NURSE 08/03/2024 ADDENDUM STATUS: COMPLETED Discharge Disposition Date of discharge: July Disposition Discharge to home per epic vet d/c. NO D/C SUMMAR AVAILABLE; WILL UPLOAD WHEN AVAILABLE Alerting PCP team to this note for continuity of care. /debi/ YVONNE LOZOYAN RN REGISTERED NURSE Signed: 08/03/2024 08:10 Receipt Acknowledged By: 08/03/2024 12:59 /debi/ USAMA LOPEZ Staff Physician * AWAITING SIGNATURE * HARDIK FUCHS 08/03/2024 ADDENDUM STATUS: COMPLETED Recommend f/u phone visit to discuss PE treatment. RTC placed for PCP visit. /debi/ USAMA LOPEZ Staff Physician Signed: 08/03/2024 13:05 Receipt Acknowledged By: * AWAITING SIGNATURE * HARDIK FUCHS APRIL [facility]
--- OUTSIDE RECORDS SUMMARY | 2024-08-22 21:50 | XMS_ITS | Clinical Summary ---
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 Name Role Phone Unknown, Notinfile Primary Care Provider Unavail able Bertha Barker MD Unavailable [phone] Amy Chiang Unavailable Unavailable Angel Horan MD Unavailable [phone] Allergies Active Allergy Reactions Criticality Noted Date Comments Amoxicillin Unknown 11/02/2016 Gets yeast infections Duloxetine Diarrhea,Nausea And Vomiting Low 10/10/2017 Latex Rash Medium 01/17/2024 Medications vit 78-gpsm-xorzu- dha 27mg iron- 800 mcg-250 mg capsule Take by mouth Active cholecalcifero l (VITAMIN D-3) 2000 unit tablet Take 1 tablet (2,000 Units total) by mouth daily 30 tablet 11 03/23/19 25 Active Additional Information Patient not taking.Reason: Not effective, Reported on 08/07/2024 blood-glucose meter kit Please provide Glucometer, Test Strips and Lancets to pt. She will be testing 4 times per day. 1 meter with 100 test strips and 100 lancets with 2 refills 1 kit 06/18/19 25 Active hydrocortisone 2.5 % cream Apply topically 2 (two) times a day 30 g 1 07/01/19 25 Active HYDROcodone-ac etaminophen (NORCO) 5-325 mg per tabletIndicati ons:Pain Take 1 tablet by mouth every 6 (six) hours as needed for pain 20 tablet 07/27/19 25 Active docusate sodium (COLACE) 100 mg capsuleIndicat ions:constipat ion,Stool Softener Take 1 capsule (100 mg total) by mouth 2 (two) times a day 60 capsule 1 07/27/19 25 Active Additional Information Patient not taking.Reason: Not effective, Reported on 08/07/2024 ibuprofen (ADVIL,MOTRIN) 600 mg tabletIndicati ons:Pain Take 1 tablet (600 mg total) by mouth every 6 (six) hours as needed for pain 60 tablet 1 07/27/19 25 Active RIVAROXABAN 15 MG (42)-20 MG (9) TABLETS IN A STARTER PACK Take 15 mg (1 tablet) TWICE a day for 21 days, then take 20 mg (1 tablet) once a day thereafter. 51 tablet 07/31/19 25 Active labetaloL (NORMODYNE,TRA NDATE) 200 mg tablet Take 1 tablet (200 mg total) by mouth 2 (two) times a day 60 tablet 08/02/19 25 2025 Active Additional Information Patient not taking.Reason: Not effective, Reported on 08/07/2024 furosemide (LASIX) 20 mg tablet Take 1 tablet (20 mg total) by mouth daily 7 tablet 08/02/19 25 Active Additional Information Patient not taking.Reason: Not effective, Reported on 08/07/2024 potassium chloride ER (KLOR-CON) 10 mEq CR tablet Take 1 tablet/capsule (10 mEq total) by mouth daily 7 tablet 08/02/19 25 Active nitrofurantoin monohydrate (MACROBID) 100 mg capsule Take 1 capsule (100 mg total) by mouth 2 (two) times a day 14 capsule 08/05/19 25 Active busPIRone (BUSPAR) 10 mg tabletIndicati ons:Generalize d Anxiety Disorder Take 1 tablet (10 mg total) by mouth 2 (two) times a day 60 tablet 3 08/05/19 25 Active enalapril (VASOTEC) 5 mg tablet Take 1 tablet (5 mg total) by mouth daily 30 tablet 1 08/07/19 25 2025 Active Additional Information Patient not taking.Reason: Not effective, Reported on 08/07/2024 NIFEdipine (NIFEdipine CC) 30 mg 24 hr tablet Take 1 tablet (30 mg total) by mouth 07/31/19 25 Active ferrous sulfate 325 mg (65 mg of elemental iron) tabletIndicati ons:Iron Deficiency Anemia Take 1 tablet (325 mg total) by mouth daily with breakfast 30 tablet 5 03/23/192024 Discontinued(S top Taking at Discharge) docusate sodium (COLACE) 100 mg capsuleIndicat ions:constipat ion Take 1 capsule (100 mg total) by mouth 2 (two) times a day as needed for constipation 60 capsule 3 03/23/19 25 2024 Discontinued(S top Taking at Discharge) aspirin 81 mg enteric coated tablet Take 1 tablet (81 mg total) by mouth daily 30 tablet 5 03/23/19 25 2024 Discontinued(S top Taking at Discharge) furosemide (Lasix) 20 mg tablet Take 0.5 tablets (10 mg total) by mouth daily as needed (for fluid retention) Call our office before using. 10 tablet 04/21/192024 Discontinued(S top Taking at Discharge) lidocaine jelly (XYLOCAINE) 2 % Apply topically as needed for pain (discomfort) 45 mL 07/03/192024 Discontinued(S top Taking at Discharge) docusate sodium (COLACE) 100 mg capsuleIndicat ions:constipat ion,Stool Softener Take 1 capsule (100 mg total) by mouth 2 (two) times a day 60 capsule 1 07/27/192024 Discontinued HYDROcodone-ac etaminophen (NORCO) 5-325 mg per tabletIndicati ons:Pain Take 1 tablet by mouth every 6 (six) hours as needed for pain 20 tablet 07/27/192024 Discontinued ibuprofen (ADVIL,MOTRIN) 600 mg tabletIndicati ons:Pain Take 1 tablet (600 mg total) by mouth every 6 (six) hours as needed for pain 60 tablet 1 07/27/19 25 2024 Discontinued docusate sodium (COLACE) 100 mg capsuleIndicat ions:constipat ion,Stool Softener Take 1 capsule (100 mg total) by mouth 2 (two) times a day 60 capsule 1 07/27/19 25 2024 Discontinued(R eorder) ibuprofen (ADVIL,MOTRIN) 600 mg tabletIndicati ons:Pain Take 1 tablet (600 mg total) by mouth every 6 (six) hours as needed for pain 60 tablet 1 07/27/19 25 2024 Discontinued(R eorder) NIFEdipine (NIFEdipine XL) 30 mg 24 hr tablet Take 1 tablet (30 mg total) by mouth daily 30 tablet 07/31/19 25 2024 Discontinued RIVAROXABAN 15 MG (42)-20 MG (9) TABLETS IN A STARTER PACK Take 15 mg (1 tablet) TWICE a day for 21 days, then take 20 mg (1 tablet) once a day thereafter. 51 tablet 07/31/19 25 2024 Discontinued NIFEdipine (NIFEdipine XL) 30 mg 24 hr tablet Take 1 tablet (30 mg total) by mouth daily 30 tablet 07/31/19 25 2024 Discontinued(S top Taking at Discharge) RIVAROXABAN 15 MG (42)-20 MG (9) TABLETS IN A STARTER PACK Take 15 mg (1 tablet) TWICE a day for 21 days, then take 20 mg (1 tablet) once a day thereafter. 51 tablet 07/31/19 25 2024 Discontinued busPIRone (BUSPAR) 10 mg tabletIndicati ons:Generalize d Anxiety Disorder Take 1 tablet (10 mg total) by mouth 2 (two) times a day 60 tablet 3 08/05/19 25 2024 Discontinued(R eorder) Active Problems Problem Noted Date Diagnosed Date Fever 08/01/2024 Single subsegmental pulmonar y embolism without acute cor pulmonale 07/31/2024 Acute nonintractable headache 07/31/2024 hypertension 07/30/2024 delivery delivered 07/24/2024 39 weeks gestation of 07/24/2024 Symptomatic cholelithiasis 07/05/2024 External hemorrhoids 06/29/2024 RUQ pain 06/23/2024 Assessment & Plan (06/23/2024 8:36 AM CDT): The patient has symptomatic cholelithiasis that was bothering her prior to even the . She is so close to delivery that our tentative plan will be for her to have her that is scheduled for mid July, give her several weeks to recover and then set her up for cholecystectomy. We have discussed postoperative issues such as post cholecystectomy diarrhea. She should have ample time to recover from both of the surgeries with the time off that she has prior to returning to work. If symptoms would worsen or progress prior she can call us and we will discuss with OB further course of action. Previous section 06/05/2024 Encounter for sterilization 06/05/2024 History of pulmonary edema 03/20/2024 Overview (03/20/2024): with preE. Diastolic dysfunction 03/20/2024 Overview (03/20/2024): On echo 01/20/24. History of gestational hypertension 01/17/2024 Overview (01/17/2024): Induced and then readmitted for preeclampsia first . PP pulmonary edema treated with Lasix. 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 PP pulmonary edema, CHF, treated with Lasix. Recommend ASA 81 mg daily until 37 wks. Primary done, PPH with one unit PRBCs; baby delivered abdominally by forceps with facial laceration. History of delivery 01/17/2024 History of PCOS 01/17/2024 Multigravida of advanced maternal age in third t rimester 01/17/2024 Assessment & Plan (01/17/2024 8:35 PM STORAGE ENGINEER): Discussed increased risk autosomal trisomies with age.. She desires cell free DNA testing. Rh negative state in antepartum period Resolved Problems Problem Noted Date Diagnosed Date Resolved Date Placenta previa in second trimester 03/20/2024 05/15/2024 Overview (05/15/2024): Posterior on anatomy sono. Resolved 05/15/24. Encounters Date Type Department Care Team Description 08/09/2024 [facility] Post Discharge Follow up phone call [facility] [address] [place] [address] Iveth Berry RN 08/07/2024 11:45 AM CDT Office Visit [facility] [address] [address] Angel Horan MD hypertension (Primary Dx) 08/06/[address] [address] Angel Horan MD 08/05/2024 Results Follow-Up [address] [address] Angel Horan MD F5 (FVL) and F2 (Prothrombin) Mutations 08/04/2024 11:00 AM CDT Office Visit [address] [address] Angel Horan MD Blood pressure check (Primary Dx) 08/04/[address] [address] Bee Friedman RN EKG Result 08/03/2024 11:50 PM CDT - 08/04/2024 4:24 AM CDT Emergency [facility] Emergency Department [address] [place] [address] Hardik Bain MD Essential hypertension (Primary Dx); Acute cystitis with hematuria Discharge Disposition: Discharge to home or self care 07/30/2024 2:54 PM CDT - 08/01/2024 1:05 PM CDT Hospital Encounter [address] [address] Leona Petit MD Sauer, Megan Elizabeth, DO Talsky, Joseph Mark, MD hypertension (Primary Dx); Single subsegmental pulmonary embolism without acute cor pulmonale (HCC) [I26.93]; Acute nonintractable headache, unspecified headache type [R51.9]; Fever, unspecified fever cause [R50.9] Discharge Disposition: Discharge to home or self care 07/30/2024 4:13 AM CDT - 07/30/2024 8:45 AM CDT Emergency [facility] Emergency Department [address] [place] [address] Kelly Oviedo MD Zozula, Killian Palacios MD Acute pulmonary embolism without acute cor pulmonale, unspecified pulmonary embolism type (HCC) (Primary Dx); ABLA (acute blood loss anemia); Elevated blood pressure reading Discharge Disposition: Discharge to home or self care 07/29/2024 10:00 AM CDT Clinical Support [facility] [address] [facility] [address] [place] [address] Encounter for staple removal (Primary Dx) 07/29/[address] [place] [address] Sweta Zarate MA EPDS 07/28/2024 12:45 PM CDT Telemedicine [facility] Cardiology [address] [place] [address] Medical Office Building [address] [place] [address] Bertha Barker MD Diastolic dysfunction (Primary Dx) 07/27/[address] [facility] [place] [address] Angel Horan MD 07/26/2024 Orders Only [address] [address] Lisa Uribe DO 07/24/2024 8:00 AM CDT Anesthesia Event [facility] and [address] [address] Chris Fernandez MD 07/24/2024 7:30 AM CDT - 07/24/2024 9:00 AM CDT Surgery [address] [address] Angel Horan MD REPEAT SECTION WITH BILATERAL SALPINGECTOMY 07/24/2024 5:18 AM CDT - 07/26/2024 2:15 PM CDT Hospital Encounter [address] [address] Angel Horan MD delivery delivered [O82] (Primary Dx); Previous section; Encounter for sterilization; 39 weeks gestation of [Z3A.39] Discharge Disposition: Discharge to home or self care 07/20/2024 1:00 PM CDT Office Visit Jaylene [facility] [address] [facility] [address] [place] [address] Angel Horan MD Encounter for supervision of other normal in third trimester (Primary Dx); 38 weeks gestation of 07/13/2024 1:15 PM CDT Office Visit [place] [facility] [address] [facility] [address] [place] [phone] Angel Horan MD Encounter for supervision of normal first in third trimester (Primary Dx); 37 weeks gestation of ; History of delivery [facility] [address] [place] [address] Bee Friedman RN Severe Anxiey 07/02/2024 Telephone [place] [facility] [address] [place] [address] Bee Friedman RN General Surgery Appt 07/01/2024 Telephone [place] [facility] [address] [place] [address] Bee Friedman RN Severe Hemorrhoid Pain 07/01/2024 Results Follow-Up [place] [facility] [address] [place] [phone] Angel Horan MD Protein / creatinine ratio, urine, random 06/30/2024 1:19 AM CDT - 06/30/2024 4:31 AM CDT Emergency [facility] [address] [place] [address] Nuria Mckenna MD Discharge Disposition: Discharge to home or self care 06/30/2024 Telephone [place] [facility] [employer] [facility] [address] [facility] [address] [place] [address] Bee Friedman, RN Anusol Cream 06/29/2024 2:20 PM CDT Lab [address] Proteinuria affecting in third trimester 06/29/2024 1:30 PM CDT Office Visit [address] [place] [address] Angel Horan MD Encounter for supervision of other normal in third trimester (Primary Dx); 35 weeks gestation of ; External hemorrhoids; Proteinuria affecting in third trimester 06/25/[address] [place] [address] Bee Friedman, cot assembler for [place], General Surgery 06/24/[address] [place] [address] Fautma Skinner MA 06/24/[address] [place] [address] Markie Avendaño MD 06/23/2024 8:30 AM CDT Office Visit [address] [place] [address] Markie Avendaño MD RUQ pain 06/17/[address] [place] [address] Bee Friedman, RN Glucometer 06/16/2024 3:45 PM CDT Office Visit [address] [place] [address] Angel Horan MD Encounter for supervision of other normal in third trimester (Primary Dx); 33 weeks gestation of 06/16/2024 3:00 PM CDT Ancillary Procedure [address] [place] [address] Uterine size-date discrepancy in third trimester; BMI 39.0-39.9,adult 06/05/2024 8:00 AM CDT Office Visit [facility] [address] [facility] [address] [place] [address] Angel Horan MD Encounter for supervision of other normal in third trimester (Primary Dx); 32 weeks gestation of ; Uterine size-date discrepancy in third trimester; BMI 39.0-39.9,adult from Last 3 Months Immunizations Immunization Administration Dates Next Due Influenza, Trivalent, Preser vative Free, Intramuscular 02/14/2024 Varicella 06/16/2024(Deferred: Patient Ref used) Surgical History Surgery Date Site/Laterality Comments APPENDECTOMY SECTION Medical History Medical History Date Comments H/O pre-eclampsia History of gestational diabetes mellitus (GDM) History of transfusion Family History Medical History Relation Name Comments AVM Father Diabetes Father Relation Name Status Comments Father Mother Alive Social History Tobacco Use Types Packs/Day Years Used Date Smoking Tobacco: Never Smokeless Tobacco: Never Tobacco Cessation:Counseling Given: Not Answered Social Connection and Isolat ion Panel [NHANES] Answer Date Recorded In a typical week, how many times do you talk on the phone with family, friends, or neighbors? More than three times a week 07/24/2024 How often do you get togethe r with friends or relatives? More than three times a week 07/24/2024 How often do you attend chur or zoroastrianism services? Patient declined 07/24/2024 Do you belong to any clubs o r organizations such as samaritan groups, unions, fraternal or athletic groups, or [...] staff should administer the PHQ-9) 0 07/24/2024 [facility] - Occupational Stress Questionnaire Answer Date Recorded [...] things needed for daily living? No 07/24/2024 Shoshone Depression Scale Answer Date Recorded Shoshone Depression Scale Total 8 07/29/2024 The thought [...] any time in the past 12 m onths, were you homeless or living in a chcf (including now)? No 07/24/2024 Personal Safety Answer [...] on file Sexual Orientation Not on file Obstetrics History Para Term AB IAB SAB Ectopic Multiple Livin g Live Births 2 2 2 0 2 2 Date Outcome GA Total Labor Labor/2nd/3rd Weight Sex Type Anes PTL Anna A1 A5 Name Clin 5 Term 4.366 kg (9 lb 10 oz) M CS-Un spec Spinal ,Epidu ral Livin g 2024 Term 39w 1d 0h 04m 0h 04m 3.885 kg (8 lb 9 oz) F C-Sec tion Spinal N Livin g 9 9 Dahlia Olive Araujo, Gonzalez Rosenberg MD Complications:None Delivery Location:[facility] ([facility] L AND D PROCEDURE) Summary Episode Dates Number of Fetuses Estimated Date of Delivery 01/17/2024 - Present (08/22/2024) 1 07/30/2024 (set by Neena Horan MD on 01/17/2024 based on Est. Date of Conception on 11/07/2023) Dating Summary Based On K[facility] GA Diff Last Menstrual Period on 10/17/2023 (Exact Date) 07/23/2024 +1w0d Est. Date of Conception on 11/07/2023 07/30/2024 Working Ultrasound on 12/19/2023 08/02/2024 -3d GA:7w4d Ultrasound on 03/20/2024 08/02/2024 -3d GA:20w5d Ultrasound on 06/16/2024 07/16/2024 +2w0d GA:35w5d Vitals Pregravid Weight Height TWG (As of 08/22/2024) Pregrav id BMI 172.7 cm (5' 8) Date GA Fund Present FHR Mvmt BP Weight Edema Alb Glu Ket Dil/ Eff/Sta 024 12w1d 126/8 4 98.9 kg (218 lb) 0/0/ // 025 35w4d 128/8 0 117.5 kg (259 lb) 0/0/-4 025 35w5d Inpatient data not displayed here. See encounter summary. 025 37w4d 128/8 4 118.4 kg (261 lb) 0/0/-4 025 38w4d 126/7 4 118.8 kg (262 lb) 0/0/-3 025 39w1d Inpatient data not displayed here. See encounter summary. 025 39w1d Inpatient data not displayed here. See encounter summary. Notes Progress Notes - Office Visi t - 08/07/2024 - GA:39w1d 08/07/2024 - 39w - Angel Horan MD Mild headache which she thinks is from taking Procardia last night. No visual changes. She held her am enalapril 5 mg new med. BP: 134/86 sitting left arm by me with large cuff, arm measures 38 cm. Start Enalapril when gets home. EPDS is 6. BP 138/86 (BP Location: Left arm, Patient Position: Sitting) Pulse 70 Wt 236 lb (107 kg) LMP 10/17/2023 (Exact Date) SpO2 98% BMI 35.88 kg/m Encounter Diagnosis Name Primary? hypertension Yes Continue home bp monitoring. Can see next week for bp check. If persistently low blood pressures we will then hold the dose of medication. Discussed may need more than 5 mg of enalapril daily but will start with a 5. Progress Notes - Office Visi t - 08/04/2024 - GA:39w1d 08/04/2024 - 39w - Angel Horan MD Blood pressure was 160/100 at home last night and Gayla went back to the ER. Her 1st blood pressure was elevated but then it kept coming down. She received Ativan 1 mg IV for anxiety. She has been taking labetalol 200 mg b.i.d.. She states her pulse is notably lower. I changed her from Procardia. Gayla has a known PE on Xarelto. She also has had preeclampsia. She has been in the hospital 3 times now . She scored an 8 on the EPDS. BuSpar helped in the past. She declines SSRI at this time. She has some fatigue. She is formula feeding. BP 132/86 (BP Location: Left arm, Patient Position: Sitting) Pulse 57 Wt 238 lb (108 kg) LMP 10/17/2023 (Exact Date) SpO2 97% BMI 36.19 kg/m BP by me: 138/84 sitting large cuff Ht: RRR L: clear Impression: 1. PE: continue Xarelto 2. severe preeclampsia. She is status post 24 hours of Mag. She is on labetalol 200 mg b.i.d. Pulse is 57. Check blood pressures twice daily at home and sent to me via Lang-8. I discussed she can take an extra 200 mg if her blood pressure is significantly elevated. 3. Anxiety: We will restart BuSpar 10 mg b.i.d. 08/04/2024 - 39w1d - Katerine Cunningham MA Patient is here for a BP check left arm 132 86 Progress Notes - Hospital En counter - 08/01/2024 - GA:39w1d 08/01/2024 - 39w1d - Angel Horan MD Mild headache in shoulders is improved. No chest pain or dyspnea. No fever or chills. No cough. BP 119/65 Pulse 70 Temp 37.7 C (99.8 F) (Tympanic) Resp 16 Ht 172.7 cm (5' 8) Wt 250 lb (113.4 kg) LMP 10/17/2023 (Exact Date) SpO2 95% BMI 38.01 kg/m Temp now is 98.6 Ht: RRR L: clear Abd: soft, NT Fundus: firm, NT Incision: healing Ext: NT, 1+ edema Impression: PE: stable, continue Xarelto as planned. Severe preeclampsia: Bps controlled on Labetalol 200 mg BID. Lasix 20 po for the next week with hx of diastolic dysfunction. Headache: improving Afebrile last 16 hours: feels well, likely from breast engorgement from stopping nursing. Call if fever. Cholelithiasis: asymptomatic presently; discussed will need to delay surgery. Plan: Home per orders. F/u 3 days for bp check. If dizzy or low bp then hold Labetalol. 08/01/2024 - 39w1d - Angel Horan MD Improved headache 4/10 left shoulder to occiput. Bps improved. Ambulating to bathroom without problems. She did not pump or breast feed all day yesterday and had chills last night. BP 130/77 Pulse 74 Temp (!) 38 C (100.4 F) (Tympanic) Resp 16 Ht 172.7 cm (5' 8) Wt 250 lb (113.4 kg) LMP 10/17/2023 (Exact Date) SpO2 96% BMI 38.01 kg/m Ht: RRR L: slight rales right base Abdomen: soft, nontender Incision: healing well Fundus: firm, NT Ingrid: min lochia Ext: NT, 1-2+ edema. Impression: 1. PE: continue Xarelto 2. Severe preeclampsia: much improved with normal bps on Labetalol. Repeat Lasix 20 mg IV with hx of diastolic dysfunction. K-dur 10 meq po. 3. Headache x 2 days is improving. Patient was placed supine with no change in her headache. 4. Fever: possible breast engorgement. Doubt pneumonia from imaging done. Feels better presently and now afebrile. No evidence of UTI or metritis. Will follow. Progress Notes - Clinical [place] pport - 07/29/2024 - GA:39w1d 07/29/2024 - 39w1d - Sweta Zarate MA Gayla was seen in office today for Staple Removal, Incision looked good, no discharge. Pia removed, steri strips placed. Discharge instructions given. Pt BP 142/88 at beginning, repeat 138/88. Pt scored 8 on EPDS no thought of hurting herself or others. Pt states is more anxiety then depression. Per Darcie ok for pt to leave and will discuss score with Dr. Horan and call pt this afternoon. Progress Notes - Hospital En counter - 07/26/2024 - GA:39w1d 07/26/2024 - 39w1d - Lisa Uribe DO Obstetrics Progress Note Events No events Subjective Pain: Controlled Bleeding: lochia minimal PO's: taking regular diet Voiding: without difficulty Ambulating: yes Feeding: breast and bottle feeding Vitals Temp: [36.1 C (97 F)-36.2 C (97.1 F)] 36.2 C (97.1 F) Pulse: [68-79] 76 Resp: [16-18] 18 BP: (129-140)/(70-80) 140/80 Physical Exam General: well Fundus: firm, below umbilicus, and nontender Incision: healing well, no significant drainage, no dehiscence, and no significant erythema Extremities: symmetric, +1 edema Data Labs Reviewed and Significant for: Recent Labs Lab Units 07/25/24 0653 07/24/24 0554 WBC K/cumm 11.26* 11.98* HEMOGLOBIN g/dL 8.8* 10.5* HEMATOCRIT % 25.6* 30.8* PLATELETS K/cumm 266 289 Status Information for the patient's : Antonette Multani [[id number]] [id number] Problem-based Assessment and Plan Gayla Multani is a 33 y.o. postop day 2 s/p . 1. Post care: meeting all goals 2. Hemodynamics: stable 3. Pain: controlled. Continue PO meds PRN. 4. PNL: Rh negative. Rubella immune. 5. Vaccinations: Immunization History Administered Date(s) Administered Influenza, Trivalent, Preservative Free, Intramuscular 02/14/2024 Michelle (J&J) SARS-CoV-2 Vaccination 01/31/2021 6. Disposition: doing well. Discharge home today pending BPs. Last one was mildly elevated so will check another. Lisa Uribe DO 07/26/2024 07/25/2024 - 39w1d - Cherrie Nguyen MD POD #1 Reports feeling tired, reports pain from incision and mild bleeding. Mild ambulation due to pain. Denies chest pain, SOB, nausea and vomiting. Eating and drinking well. BP 122/70 (BP Location: Right arm, Patient Position: Sitting) Pulse 68 Temp 36.4 C (97.6 F) (Temporal) Resp 16 LMP 10/17/2023 (Exact Date) SpO2 97% Yes Heart: RRR Lungs: clear Abdomen: soft, non-tender Fundus: firm, non-tender Incision: dry, healing Extremities: non-tender Recent Labs Lab Units 07/25/24 0653 07/24/24 0554 WBC K/cumm 11.26* 11.98* HEMOGLOBIN g/dL 8.8* 10.5* HEMATOCRIT % 25.6* 30.8* PLATELETS K/cumm 266 289 Lab Results Component Value Date ABORH O Negative 07/24/2024 Assessment: Doing well. Plan: Continue care. Increase ambulation. Cherrie Chris MD Family Medicine PGY-1 [facility] Family Medicine Residency Cosigned by Lisa Uribe DO at 07/25/2024 5:55 PM CDT Associated attestation - Lisa Uribe DO - 07/25/2024 5:55 PM CDT I have personally seen and examined the patient. She is POD #1 from a rCS and BS. She is doing well and meeting all postop milestones. Pumping and bottle feeding. Incision looks good. Will continue routine /postop care. Progress Notes - Office Visi t - 07/20/2024 - GA:38w4d 07/20/2024 - 38w4d - Angel Horan MD No c/os. S=D. Labor instructions. Repeat in 4 days. Progress Notes - Office Visi t - 07/13/2024 - GA:37w4d 07/13/2024 - 37w4d - Angel Horan MD Discomfort pains and increased anxiety. Hands and feet get numb. Ht: RRR, L: clear S= to >D. Off work secondary to discomfort pains with macrosomic baby. Labor instructions. Progress Notes - Office Visi t - 06/29/2024 - GA:35w4d 06/29/2024 - 35w4d - Angel Horan MD Pain from external hemorrhoids last few days. S=D. Labor instructions. GBS done. Anusol cr for hemorrhoids, increase fiber, liquids. GBS done. Check urine pr:cr. Home blood sugars reported normal. Progress Notes - Office Visi t - 06/16/2024 - GA:33w5d 06/16/2024 - 33w5d - Angel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 frequency among other ethnicities is less than 3%. The increased risk of VTE for adults is 4-8 fold for F5 heterozygotes and 80-fold higher for F5 homozygotes. The population allele frequency for the F2:c.*97G>A mutation is approximately 1-3% in persons of ancestry and 0.3% in those with ancestry. The reported frequency among other ethnicities is less than 2%. The increased risk of VTE for adults is 2-5 fold for F2 heterozygotes and is higher, though not well-defined, for F2 homozygotes. The risk of VTE in individuals heterozygous for both F2 & F5 is 20-fold higher. Absence of these mutations does not indicate a lack of risk for VTE. Genetic counseling is recommended. Method: This assay utilizes the [employer] Xpert FII & FV qualitative in vitro diagnostic genotyping test for the detection of targeted FV and F2 alleles from sodium citrate or EDTA anticoagulated whole blood. This test is performed on the [employer] Dx System which automates and integrates sample purification, nucleic acid amplification, and detection of the target sequence in whole blood using real- time Polymerase Chain Reaction (PCR) assays based on Scorpion PCR technology. Note: F5 (NM_000130.5):c.1601G>A, R534Q or Factor V Leiden is also referred to as c.1691G>A, p.R506Q in the literature. FDA statement: The [employer] Xpert FII & FV qualitative in vitro diagnostic genotyping test for use on specimens from adult populations. The aerospace medicine physician did not evaluate testing on samples from pediatric patients (<18 years of age). The performance characteristics of this test on specimens from pediatric patients have been assessed by the [facility] and deemed acceptable for clinical reporting. The [employer] Xpert FII & FV genotyping test is FDA-cleared for testing unprocessed peripheral blood specimens containing either EDTA or sodium citrate. Processing of specimens submitted for reflex testing requires modifications from the aerospace medicine physician's instructions. The performance characteristics of those modifications, if necessary, have been determined by [facility] in a manner consistent with CLIA requirements. Limitations and interfering substances: The performance of the Xpert Factor II & Factor V Assay was validated using the procedures provided in the package insert only. Results from the Xpert Factor II & Factor V Assay should be interpreted in conjunction with other laboratory and clinical data available to the clinician. Rare Factor V variants including but not limited to: F5:c.1599G>A, F5:c.1602A>C, F5:c.1606A>G, rare Factor II mutations and any additional SNPs in the probe binding region, may interfere with the target detection and yield an invalid result. Patients on heparin therapy and receiving blood transfusions may have interfering substances that potentially lead to invalid or erroneous results. References: 1. [employer] Xpert Factor II and Factor V package insert. [id number], Rev. B. October 2016. 2. Shelley CALDERON, et al; MG Factor V Leiden Working Group. Erika Med. 2001. 3:139- 48. 3. SAVITA Andre, et al. Nature. 2020. 581:434 4 43 4. Lesli ZEPEDA. Factor V Leiden Thrombophilia. 1998July 22 [Updated 2018 Mar 14]. Available from: https://www.ncbi.nlm.nih.gov/books/MRZ6810/ 5. Joe PM, et al. N Engl J Med. 1994. 332:912-17. 6. Haroldo ROSE and Delfina WIN. J Thromb Haemost. 2009. 7 Suppl 1:301 4 . 7. Karyn Butcher., et al. Erika Med. 2018. 20:1489 1 498 This test was performed at: [facility], One [facility] Yusuf, DEVONTE#[id number], Lorelei Tucker, Ph.D., [place], [address], [place] Current interpretive data was last revised 2022. Testing performed by: [facility], 1 [facility], [place]., [address] Blood 07/31/2024 1:36 PM CDT 07/31/2024 4:59 PM CDT Angel Horan MD LAB GENETIC TESTING Final Result [facility] ([place]) 1 [facility] [place] [address] [facility] * eGFR (07/31/2024 1:36 PM CDT) eGFR >90 >=60 mL/min/1. 73 m2 Comment: Interpretive Data Reference Interval Normal >/= 90 mL/min/1.73m2 Mildly decreased* 60 - 89 mL/min/1.73m2 Mildly to moderately decreased 45 - 59 mL/min/1.73m2 Moderately to severely decreased 30 - 44 mL/min/1.73m2 Severely decreased 15 - 29 mL/min/1.73m2 Kidney Failure < 15 mL/min/1.73m2 *Relative to young adult level Estimated glomerular filtration rate is determined by the 2020 CKD-EPI equation recommended by the National Kidney Foundation (A Unifying Approach to GFR Estimation: Recommendations of the NKF-ASK Task Force on Reassessing the Inclusion of Race in Diagnosing Kidney Disease, JASN 202). The CKD-EPI equation should not be used for patients with unstable renal function and has not been validated in children and those over 70. Current interpretive data was last reviewed 2021. Blood 07/31/2024 1:36 PM CDT 07/31/2024 1:43 PM CDT us Angel Horan MD LAB BLOOD ORDERABLES Final Result [facility] ([place]) 1 [facility] [place] [address] * (ABNORMAL) Protime-INR (07/31/2024 1:36 PM CDT) PT 14.3(H) 9.7 - 13.0 sec [facility] ([place]) INR 1.32(H) 0.90 - 1.20 [facility] ([place]) Comment: Interpretive data Oral anticoagulant therapeutic ranges: Venous thromboembolism prophylaxis or treatment: 2.0-3.0 CARDIOLOGY Standard range: 2.0-3.0 High-intensity range: 2.5-3.5 Refer to indication-specific guidelines for appropriate target ranges for prosthetic heart valve replacement. Current interpretive data was last revised on 2019. Blood 07/31/2024 1:36 PM CDT 07/31/2024 1:43 PM CDT Narrative [facility] ([place]) - 07/31/2024 3:02 PM CDT Baseline prior to rivaroxaban initiation us Lisa Uribe DO LAB BLOOD ORDERABLES Fi nal Result [facility] ([place]) 1 [facility] [place] [address] * (ABNORMAL) CBC without differential (07/31/2024 1:36 PM CDT) WBC 10.34(H) 3.80 - 9.90 K/cumm Hgb 9.4(L) 11.9 - 15.5 g/dL [facility] ([place]) Hct 28.3(L) 35.6 - 45.5 % [facility] ([place]) Plt 446(H) 150 - 400 K/cumm [facility] ([place]) MPV 8.4(L) 9.1 - 12.3 fL [facility] ([place]) RBC 3.27(L) 3.90 - 5.20 M/cumm [facility] ([place]) MCV 86.5 81.3 - 96.4 fL [facility] ([place]) MCH 28.7 27.1 - 33.3 pg [facility] ([place]) MCHC 33.2 32.3 - 35.7 g/dL [facility] ([place]) RDW CV 12.8 11.1 - 14.9 % [facility] ([place]) RDW SD 40.1 35.7 - 48.1 fL [facility] ([place]) NRBC abs 0.00 0.00 - 0.01 K/cumm [facility] ([place]) Blood 07/31/2024 1:36 PM CDT 07/31/2024 1:43 PM CDT Narrative [facility] ([place]) - 07/31/2024 1:57 PM CDT Baseline prior to rivaroxaban initiation us Lisa Uribe DO LAB BLOOD ORDERABLES Fi nal Result [facility] ([place]) 1 [facility] [employer] of [place] [place], [place] [id number] * (ABNORMAL) Magnesium (07/31/2024 1:36 PM CDT) Pathologist [facility] Magnesium 5.0(C) 1.4 - 2.5 mg/dL Comment:Critical Result call ed by [email or web address] at 2024-07-31 17:08:05. Result Read Back by Darcie Veloz RN L&D Blood 07/31/2024 1:36 PM CDT 07/31/2024 4:29 PM CDT us Angel Horan MD LAB BLOOD ORDERABLES Final Result [facility] ([place]) 1 [facility] [employer] [place], [place] [id number] * (ABNORMAL) Hepatic function panel (07/31/2024 1:36 PM CDT) Bilirubin, total 0.3 0.1 - 1.2 mg/dL Bilirubin, direct 0.1 0.1 - 0.3 mg/dL [facility] ([place]) Protein, pl 7.0 6.5 - 8.5 g/dL [facility] ([place]) Albumin 3.6 3.5 - 5.0 g/dL [facility] ([place]) Alk phos 170(H) 40 - 130 Units/L [facility] ([place]) ALT 16 7 - 45 Units/L [facility] ([place]) AST 21 10 - 45 Units/L [facility] ([place]) Blood 07/31/2024 1:36 PM CDT 07/31/2024 1:43 PM CDT Narrative [facility] ([place]) - 07/31/2024 2:27 PM CDT Baseline prior to rivaroxaban initiation us Lisa Uribe DO LAB BLOOD ORDERABLES Fi nal Result [facility] ([place]) 1 [facility] [place] [address] * (ABNORMAL) Basic metabolic panel (07/31/2024 1:36 PM CDT) Sodium 139 135 - 145 mmol/L Potassium, pl 3.4 3.3 - 4.9 mmol/L [facility] ([place]) Chloride 97 97 - 110 mmol/L [facility] ([place]) CO2 26 22 - 32 mmol/L [facility] ([place]) Anion gap 16(H) 2 - 15 mmol/L [facility] ([place]) BUN 8 6 - 25 mg/dL [facility] ([place]) Creatinine 0.79 0.60 - 1.10 mg/dL [facility] ([place]) Glucose 113 70 - 199 mg/dL [facility] ([place]) Comment: Interpretive Data Fasting glucose >/= 126 mg/dl is diagnostic for diabetes. Fasting is defined as no caloric intake for at least 8 hours. Fasting glucose between 100 mg/dl to 125 mg/dl is diagnostic of prediabetes. In a patient with classic symptoms of hyperglycemia or hyperglycemic crisis, a random glucose >/= 200 mg/dl is diagnostic for diabetes. In the absence of unequivocal hyperglycemia, results should be confirmed by repeat testing. The classification and Diagnosis of Diabetes Diabetes Care 2021; 46: S19-S40. Current interpretive data was last revised 2022. Calcium 8.1(L) 8.5 - 10.3 mg/dL [facility] ([place]) Blood 07/31/2024 1:36 PM CDT 07/31/2024 1:43 PM CDT us Angel Horan MD LAB BLOOD ORDERABLES Final Result [facility] ([place]) 1 [facility] [place] [address] * [place] CRITICAL CARE ILL/INJURED PATIENT INIT 30-74 MIN (07/30/2024 4:50 PM CDT) Narrative Leona Petit MD - 07/30/2024 4:50 PM CDT Leona Petit MD 07/30/2024 4:51 PM Critical Care Performed by: Leona Petit MD Authorized by: Leona Petit MD Critical care provider statement: As reflected in the history, physical exam, orders, notes, and/or MDM, I was personally present while the patient was critically ill and provided critical care services for 45 minutes, excluding time involved in separately billable procedures. Critical care was necessary to treat or prevent imminent or life-threatening deterioration of the following condition(s): hypertensive crisis Critical care was time spent by me providing the following: continuous telemetry, interpretation of bedside monitors, imaging, and arterial/venous lab draws and serial bedside patient exams initiation and active titration of vasoactive medications I provided emergent necessary critical care medicine services to this patient. I ordered and reviewed test results and/or imaging studies. I spent time discussing the management of this critically ill patient with consultants and the medical staff. I spent time discussing the management and therapeutic options for this critically ill patient with the patient themselves or with the appropriate designated surrogate decision-maker. I spent time documenting in the medical record. I admitted this patient to a continuous cardiac monitored bed. us Leona Petit MD IN CLINIC/BEDSIDE ORDERABL ES Final Result * CT Head WO Contrast (07/30/2024 4:06 PM CDT) Anatomical Region Laterality Modality Head and Neck N/A Computed Tomogra phy 07/30/2024 5:02 PM CDT Narrative 07/30/2024 5:05 PM CDT EXAM DESCRIPTION: CT HEAD WO CONTRAST REASON FOR STUDY: headache hypertension TECHNIQUE: Axial images acquired through the brain without intravenous contrast. Images stored on PACS. Automated exposure control was used as a dose optimization technique for this examination. COMPARISON: None FINDINGS: BRAIN: No gross intraparenchymal hemorrhage, mass or edema. Grossly normal monteiro-white differentiation. No hydrocephalus. EXTRA-AXIAL SPACES: No gross extra-axial fluid collection or mass. CALVARIUM: No fracture. SINUSES/MASTOIDS: No fluid or mucosal thickening. ORBITS: No significant abnormality. OTHER: No other significant abnormality. IMPRESSION: 1. No gross acute intracranial abnormality. THIS IS AN ELECTRONICALLY VERIFIED FINAL REPORT 07/30/2024 5:05 PM - Electronically signed by Jez Long M.D. AG: GUANAKO Report ID: [id number] Reading Location: [id number] Procedure Note Jez Long MD - 07/30/2024 EXAM DESCRIPTION: CT HEAD WO CONTRAST REASON FOR STUDY: headache hypertension TECHNIQUE: Axial images acquired through the brain without intravenous contrast. Images stored on PACS. Automated exposure control was used asa dose optimization technique for this examination. COMPARISON: None FINDINGS: BRAIN: No gross intraparenchymal hemorrhage, mass or edema. Grossly normal monteiro-white differentiation. No hydrocephalus. EXTRA-AXIAL SPACES: No gross extra-axial fluid collection or mass. CALVARIUM: No fracture. SINUSES/MASTOIDS: No fluid or mucosal thickening. ORBITS: No significant abnormality. OTHER: No other significant abnormality. IMPRESSION: 1. No gross acute intracranial abnormality. THIS IS AN ELECTRONICALLY VERIFIED FINAL REPORT 07/30/2024 5:05 PM - Electronically signed by Jez Long M.D. AG: AG Report ID: [id number] Reading Location: [id number] Leona Petit MD IMG CT PROCEDURES Final Re sult * ECG 12 lead (07/30/2024 3:38 PM CDT) 07/30/2024 3:38 PM CDT Narrative [facility] - 07/30/2024 3:50 PM CDT Vent Rate: 72 bpm RR Interval: 833 msec MO Interval: 164 msec QRS Duration: 102 msec QT Interval: 363 msec QTC Interval: 386 msec P-R-T [place]: 62 - 39 - 30 degrees IMPRESSION: SINUS RHYTHM NORMAL ECG NO CHANGE FROM PREVIOUS TRACING NOTED Electronically Signed By: Juwan Chery MD Leona Petit MD ECG ORDERABLES Final Resu lt [facility] * XR Chest 1 Vw Portable (07/30/2024 3:31 PM CDT) Anatomical Region Laterality Modality Body, Chest N/A Computed Radiogr aphy 07/30/2024 4:02 PM CDT Narrative 07/30/2024 4:03 PM CDT EXAM DESCRIPTION: XR CHEST 1 VIEW REASON FOR STUDY: hypertension Gayla Multani is a 33 y.o. female nonsmoker who presents to the ED with c/o HTN post . Per the nurse, pt recorded HTN during an at home test. Pt reports taking blood pressure medication in the past, but not during recent . Pt claims that she took a blood pressure pill this morning that did not alleviate HTN. Pt reports headache and neck pain that began this morning that radiates from shoulder to head and is worsened with movement. TECHNIQUE: Single radiographic view(s) of the chest. COMPARISON: Chest radiograph 07/30/2024 FINDINGS: The heart appears enlarged although size is not accurately assessed by AP technique. There is left basilar atelectasis or pneumonia. IMPRESSION: Left basilar atelectasis or pneumonia. THIS IS AN ELECTRONICALLY VERIFIED FINAL REPORT 07/30/2024 4:03 PM - Electronically signed by Lakhwinder Shanks M.D., JR: Report ID: [id number] Reading Location: [id number] Procedure Note Lakhwinder Shanks MD - 07/30/2024 EXAM DESCRIPTION: XR CHEST 1 VIEW REASON FOR STUDY: hypertension Gayla Multani is a 33 y.o. female nonsmoker who presents to the ED withc/o HTN post . Per the nurse, pt recorded HTN during an at home test. Pt reports taking blood pressure medication in the past, but not duringrecent . Pt claims that she took a blood pressure pill this morningthat did not alleviate HTN. Pt reports headache and neck pain that began this morning that radiates from shoulder to head and is worsened with movement. TECHNIQUE: Single radiographic view(s) of the chest. COMPARISON: Chest radiograph 07/30/2024 FINDINGS: The heart appears enlarged although size is not accurately assessed by AP technique. There is left basilar atelectasis or pneumonia. IMPRESSION: Left basilar atelectasis or pneumonia. THIS IS AN ELECTRONICALLY VERIFIED FINAL REPORT 07/30/2024 4:03 PM - Electronically signed by Lakhwinder Shanks M.D. JR: Report ID: [id number] Reading Location: [id number] us Leona Petit MD IMG XR PROCEDURES Final Re sult * [place] CRITICAL CARE ILL/INJURED PATIENT INIT 30-74 MIN (07/30/2024 8:45 AM CDT) Narrative Kelly Oviedo MD - 07/30/2024 8:45 AM CDT Kelly Oviedo MD 08/01/2024 7:05 AM Critical Care Performed by: Kelly Oviedo MD Authorized by: Killian Paul MD Critical care provider statement: As reflected in the history, physical exam, orders, notes, and/or MDM, I was personally present while the patient was critically ill and provided critical care services for 45 minutes, excluding time involved in separately billable procedures. Critical care was necessary to treat or prevent imminent or life-threatening deterioration of the following condition(s): Critical care was time spent by me providing the following: continuous telemetry and continuous pulse oximetry initiation and active titration of vasoactive medications I provided emergent necessary critical care medicine services to this patient. I ordered and reviewed test results and/or imaging studies. I spent time discussing the management of this critically ill patient with consultants and the medical staff. I spent time discussing the management and therapeutic options for this critically ill patient with the patient themselves or with the appropriate designated surrogate decision-maker. I spent time documenting in the medical record. us Killian Paul MD IN CLINIC/BEDSIDE O RDERABLES Final Result * Troponin T high-sensitivity 2-hour (07/30/2024 6:29 AM CDT) Trop T hs 9 <=14 ng/L Comment: Interpretive Data For further hscTnT resources including the diagnostic algorithm and an aid in interpretation, copy and paste this link: https://nrl.testcatalog.org/show/hsTrop Current Interpretive Data last revised 2020. Trop T hs delta 0 ng/L [facility] ([place]) Trop T hs interp Insignificant [facility] ([place]) Blood 07/30/2024 6:29 AM CDT 07/30/2024 6:32 AM CDT us Kelly Oviedo MD LAB BLOOD ORDERABLE S Final Result [facility] ([place]) 1 [facility] [place] [address] * Protime-INR (07/30/2024 6:29 AM CDT) PT 10.5 9.7 - 13.0 sec [facility] ([place]) INR 0.97 0.90 - 1.20 [facility] ([place]) Comment: Interpretive data Oral anticoagulant therapeutic ranges: Venous thromboembolism prophylaxis or treatment: 2.0-3.0 CARDIOLOGY Standard range: 2.0-3.0 High-intensity range: 2.5-3.5 Refer to indication-specific guidelines for appropriate target ranges for prosthetic heart valve replacement. Current interpretive data was last revised on 2019. Blood 07/30/2024 6:29 AM CDT 07/30/2024 6:32 AM CDT Narrative [facility] ([place]) - 07/30/2024 6:42 AM CDT Baseline prior to rivaroxaban initiation us Killian Paul MD LAB BLOOD ORDERABLE S Final Result [facility] ([place]) 1 [facility] [place] [address] * (ABNORMAL) Urinalysis reflex to microscopic and culture Urine (07/30/2024 5:54 AM CDT) Color, ur Straw Yellow Clarity, ur Clear Clear [facility] ([place]) Specific gravity, ur 1.008 1.003 - 1.030 [facility] ([place]) pH, urine 5.5 [facility] ([place]) Comment: Interpretive Data U rine pH is affected by diet, medications, systemic acid-base disturbances, and renal tubular function. pH may affect urinary stone formation. For example, urine pH below 6.0 may help reduce the tendency for calcium phosphate stones and pH greater than 6.0 may reduce the tendency for uric acid stone formation. Source: [facility] [employer] Current Interpretive Data was last revised on 2017 Protein, ur ql Negative Negative [facility] ([place]) Glucose, ur ql Negative Negative [facility] ([place]) Ketones, ur Negative Negative [facility] ([place]) Bilirubin, ur Negative Negative [facility] ([place]) Blood, ur 1+(A) Negative [facility] ([place]) Urobilinogen, ur <2.0 <2.0 mg/dL [facility] ([place]) Nitrite, ur Negative Negative [facility] ([place]) Leukocyte esterase, ur Negative Negative [facility] ([place]) UA reflex comment Reflex to microscopic UA will be performed. [facility] ([place]) Urine 07/30/2024 5:54 AM CDT 07/30/2024 5:56 AM CDT Kelly Oviedo MD LAB MICROBIOLOGY - GENERAL ORDERABLES Final Result Performing Organization Address [facility] Co de Phone Number [facility] ([place]) 1 [facility] [place] [address] * (ABNORMAL) Urinalysis, microscopic only (07/30/2024 5:54 AM CDT) WBC, ur 0-5 0 - 5 /HPF RBC, ur 0-2 0 - 2 /HPF [facility] ([place]) Epithelial cells, squamous, ur 1-5 0 - 5 /HPF [facility] ([place]) Bacteria, ur 2+(A) [facility] ([place]) Mucous, ur Present(A) [facility] ([place]) Culture Reflex Comment Reflex conditions for urine culture (WBC >10) not met. [facility] ([place]) Urine 07/30/2024 5:54 AM CDT 07/30/2024 5:56 AM CDT Kelly Oviedo MD LAB URINE ORDERABLE S Final Result Performing Organization Address [facility] Co de Phone Number [facility] ([place]) 1 [facility] [place] [address] * CT Chest PE (CTA) W Contrast (07/30/2024 5:45 AM CDT) Anatomical Region Laterality Modality Body N/A Computed Tomogra phy 07/30/2024 5:57 AM CDT Narrative 07/30/2024 6:27 AM CDT EXAM DESCRIPTION: CT CHEST PE (CTA) W CONTRAST REASON FOR STUDY: Pulmonary embolism (PE) suspected, high prob Patient presents status post 5 days ago with shortness of breath and swelling. TECHNIQUE: CT angiogram of the chest performed with intravenous contrast using helical scanning technique with dynamic intravenous contrast injection. Reconstructed coronal and sagittal MPR images reviewed. All images stored on PACS. 3D MIP images rendered on scanning unit and reviewed at time of interpretation. Automated exposure control was used as a dose optimization technique for this examination. CONTRAST TYPE/DOSE: 75mL of IOVERSOL 350 MG IODINE/ML INTRAVENOUS SYRINGE injected via intravenous COMPARISON: 07/30/2024 FINDINGS: VASCULATURE: Filling defects identified within the right lower lobe posterior basilar segmental pulmonary artery. This extends to peripheral branches. No acute aortic abnormality. LUNGS: Central airways are patent. No dense consolidations. Bibasilar interstitial and subtle ground-glass opacities may indicate developing atelectasis with mild pneumonitis not excluded. PLEURA: No effusion. No pneumothorax. MEDIASTINUM/KEITH: Soft tissue density hilar regions and subcarinal space likely postinflammatory. Soft tissue density along the anterior mediastinal soft tissues suggest residual thymic tissue HEART: Heart size is upper limits of normal. No pericardial effusion. Right to left ventricular ratio is less than 1.0. No reflux of contrast to the hepatic veins or IVC to suggest right heart failure. AXILLA: Nonenlarged slightly prominent lymph nodes in the axillary regions occluding the subpectoral regions bilaterally are nonspecific. CHEST WALL: No masses. No subcutaneous air. HARDWARE/LINES/TUBES: None. UPPER ABDOMEN: No significant abnormality. MUSCULOSKELETAL: No significant abnormality. OTHER: No significant abnormality. IMPRESSION: Pulmonary embolus identified right lower lobe posterior basilar segmental pulmonary artery. No signs of right heart failure. Bibasilar interstitial and ground-glass opacities may represent developing atelectasis with mild pneumonitis not excluded. Nonenlarged slightly prominent lymph nodes in the axillary regions and subpectoral regions are nonspecific likely postinflammatory. I called these critical results by phone at time of dictation to Dr. Paul THIS IS AN ELECTRONICALLY VERIFIED FINAL REPORT 07/30/2024 6:27 AM - Electronically signed by Nick Patton M.D. RB: SHONDA Report ID: [id number] Reading Location: [place] [address] Procedure Note Nick Patton MD - 07/30/2024 EXAM DESCRIPTION: CT CHEST PE (CTA) W CONTRAST REASON FOR STUDY: Pulmonary embolism (PE) suspected, high prob Patient presents status post 5 days ago with shortness of breathand swelling. TECHNIQUE: CT angiogram of the chest performed with intravenous contrastusing helical scanning technique with dynamic intravenous contrast injection. Reconstructed coronal and sagittal MPR images reviewed. All images storedon PACS. 3D MIP images rendered on scanning unit and reviewed at time of interpretation. Automated exposure control was used as a doseoptimization technique for this examination. CONTRAST TYPE/DOSE: 75mL of IOVERSOL 350 MG IODINE/ML INTRAVENOUSSYRINGE injected via intravenous COMPARISON: 07/30/2024 FINDINGS: VASCULATURE: Filling defects identified within the right lower lobe posterior basilar segmental pulmonary artery. This extends to peripheral branches. No acute aortic abnormality. LUNGS: Central airways are patent. No dense consolidations. Bibasilar interstitial and subtle ground-glass opacities may indicate developing atelectasis with mild pneumonitis not excluded. PLEURA: No effusion. No pneumothorax. MEDIASTINUM/KEITH: Soft tissue density hilar regions and subcarinal space likely postinflammatory. Soft tissue density along the anterior mediastinal soft tissues suggest residual thymic tissue HEART: Heart size is upper limits of normal. No pericardial effusion. Right to left ventricular ratio is less than 1.0. No reflux of contrastto the hepatic veins or IVC to suggest right heart failure. AXILLA: Nonenlarged slightly prominent lymph nodes in the axillaryregions occluding the subpectoral regions bilaterally are nonspecific. CHEST WALL: No masses. No subcutaneous air. HARDWARE/LINES/TUBES: None. UPPER ABDOMEN: No significant abnormality. MUSCULOSKELETAL: No significant abnormality. OTHER: No significant abnormality. IMPRESSION: Pulmonary embolus identified right lower lobe posterior basilar segmental pulmonary artery. No signs of right heart failure. Bibasilar interstitial and ground-glass opacities may representdeveloping atelectasis with mild pneumonitis not excluded. Nonenlarged slightly prominent lymph nodes in the axillary regions and subpectoral regions are nonspecific likely postinflammatory. I called these critical results by phone at time of dictation to THIS IS AN ELECTRONICALLY VERIFIED FINAL REPORT 07/30/2024 6:27 AM - Electronically signed by Nick NewellD. RB: RB Report ID: [id number] Reading Location: [id number] Kelly Oviedo MD IMG CT PROCEDURES F inal Result * XR Chest 1 Vw Portable (if patient condition/safety warrant portable) (07/30/2024 4:43 AM CDT) Anatomical Region Laterality Modality Body, Chest N/A Computed Radiogr aphy 07/30/2024 5:30 AM CDT Narrative 07/30/2024 5:31 AM CDT EXAM DESCRIPTION: XR CHEST 1 VIEW REASON FOR STUDY: chest pain C/o elevated blood pressure, chest pain, and shortness of breath that started tonight. Pt is 5 days post . No cardiac hx Non smoker TECHNIQUE: Single-view COMPARISON: None available FINDINGS: Central vascularity are slightly prominent. Lungs are well expanded without consolidation, effusion or pneumothorax. IMPRESSION: Mild central vascular prominence. THIS IS AN ELECTRONICALLY VERIFIED FINAL REPORT 07/30/2024 5:31 AM - Electronically signed by Nick Patton M.D. RB: RB Report ID: [id number] Reading Location: [id number] Procedure Note Nick Patton MD - 07/30/2024 EXAM DESCRIPTION: XR CHEST 1 VIEW REASON FOR STUDY: chest pain C/o elevated blood pressure, chest pain, and shortness of breath thatstarted tonight. Pt is 5 days post . No cardiac hx Non smoker TECHNIQUE: Single-view COMPARISON: None available FINDINGS: Central vascularity are slightly prominent. Lungs are well expanded without consolidation, effusion or pneumothorax. IMPRESSION: Mild central vascular prominence. THIS IS AN ELECTRONICALLY VERIFIED FINAL REPORT 07/30/2024 5:31 AM - Electronically signed by Nick Patton M.D. RB: RB Report ID: [id number] Reading Location: [id number] Kelly Oviedo MD IMG XR PROCEDURES F inal Result * Troponin T high-sensitivity series (baseline, 2hr, 4hr, 6hr) (07/30/2024 4:40 AM CDT) Trop T hs 9 <=14 ng/L Comment: Interpretive Data For further hscTnT resources including the diagnostic algorithm and an aid in interpretation, copy and paste this link: https://nrl.testcatalog.org/show/hsTrop Current Interpretive Data last revised 2020. Blood 07/30/2024 4:40 AM CDT 07/30/2024 4:57 AM CDT Kelly Oviedo MD LAB BLOOD ORDERABLE S Final Result [facility] [place] 1 [facility] [place] [address] * eGFR (07/30/2024 4:40 AM CDT) eGFR >90 >=60 mL/min/1. 73 m2 Comment: Interpretive Data Reference Interval Normal >/= 90 mL/min/1.73m2 Mildly decreased* 60 - 89 mL/min/1.73m2 Mildly to moderately decreased 45 - 59 mL/min/1.73m2 Moderately to severely decreased 30 - 44 mL/min/1.73m2 Severely decreased 15 - 29 mL/min/1.73m2 Kidney Failure < 15 mL/min/1.73m2 *Relative to young adult level Estimated glomerular filtration rate is determined by the 2020 CKD-EPI equation recommended by the National Kidney Foundation (A Unifying Approach to GFR Estimation: Recommendations of the NKF-ASK Task Force on Reassessing the Inclusion of Race in Diagnosing Kidney Disease, JASN 2020). The CKD-EPI equation should not be used for patients with unstable renal function and has not been validated in children and those over 70. Current interpretive data was last reviewed 2021. Blood 07/30/2024 4:40 AM CDT 07/30/2024 4:57 AM CDT us Kelly Oviedo MD LAB BLOOD ORDERABLE S Final Result [facility] ([place] 1 [facility] [place] [address] * Differential, auto (07/30/2024 4:40 AM CDT) Neutrophil abs 5.46 1.50 - 6.50 K/cumm Imm gran abs 0.06 0.00 - 0.10 K/cumm [facility] ([place]) Lymphocyte abs 2.24 0.80 - 3.30 K/cumm [facility] ([place]) Monocyte abs 0.66 0.20 - 0.80 K/cumm [facility] ([place]) Eosinophil abs 0.20 0.00 - 0.50 K/cumm [facility] ([place]) Basophil abs 0.05 0.00 - 0.10 K/cumm [facility] ([place]) Neutrophil pct 63.0 % [facility] ([place]) Comment: Interpretive Data Percent cell count reference ranges are not reported, since discordance with absolute values may lead to misinterpretation of CBC data. Current Interpretive Data was last revised on 2017. Imm gran pct 0.7 % [facility] ([place]) Comment: Interpretive Data Percent cell count reference ranges are not reported, since discordance with absolute values may lead to misinterpretation of CBC data. Current Interpretive Data was last revised on 2017. Lymphocyte pct 25.8 % [facility] ([place]) Comment: Interpretive Data Percent cell count reference ranges are not reported, since discordance with absolute values may lead to misinterpretation of CBC data. Current Interpretive Data was last revised on 2017. Monocyte pct 7.6 % [facility] ([place]) Comment: Interpretive Data Percent cell count reference ranges are not reported, since discordance with absolute values may lead to misinterpretation of CBC data. Current Interpretive Data was last revised on 2017. Eosinophil pct 2.3 % [facility] ([place]) Comment: Interpretive Data Percent cell count reference ranges are not reported, since discordance with absolute values may lead to misinterpretation of CBC data. Current Interpretive Data was last revised on 2017. Basophil pct 0.6 % [facility] ([place]) Comment: Interpretive Data Percent cell count reference ranges are not reported, since discordance with absolute values may lead to misinterpretation of CBC data. Current Interpretive Data was last revised on 2017. Blood 07/30/2024 4:40 AM CDT 07/30/2024 4:57 AM CDT us Kelly Oviedo MD LAB BLOOD ORDERABLE S Final Result [facility] ([place] 1 [facility] [place] [address] * (ABNORMAL) Pro B-type natriuretic peptide (07/30/2024 4:40 AM CDT) NT-proBNP 386(H) <=300 pg/mL Comment: Interpretive Comments: A. Dyspnea in Acute Care Setting All Ages: < 300 pg/ml, acute heart failure unlikely. < 50 yrs: 300 - 450 pg/ml, further investigation warranted. > 450 pg/ml, acute heart failure likely. 50 - 74 yrs: 300 - 900 pg/ml, further investigation warranted. > 900 pg/ml, acute heart failure likely . > or = 75 yrs: 450 - 1800 pg/ml, further investigation warranted. > 1800 pg/ml, acute heart failure likely. B. Non-acute Setting < 75 yrs < 125 pg/ml, rules out heart failure. > or = 125 pg/ml, further investigation warranted. > or = 75 yrs < 450 pg/ml, rules out heart failure. > or = 450 pg/ml, further investigation warranted. - Knowledge of each individual patient's NT-proBNP range may be more useful than using similar cut-points for every patient. Please note that marked elevations in NT-proBNP levels may be observed in state other than Left Ventricular Congestive Failure, including: acute coronary syndromes, right heart strain/failure (including pulmonary embolism and cor pulmonale), critical illness, renal failure, as well as advanced age. - References: 1. Miguel ZEPEDA et.al. Eur Heart J. 2006:27:330-337. 2. Azael BUSH, Macario TERRELL. J. AM Power Cardiol: Cardiovasc Imag. 2009;2: 216- 225. Interpretive Data Last Revised Date: 2017. Blood 07/30/2024 4:40 AM CDT 07/30/2024 4:57 AM CDT us Kelly Oviedo MD LAB BLOOD ORDERABLE S Final Result [facility] ([place]) 1 [facility] Department [place] [address] * (ABNORMAL) CBC with auto differential (07/30/2024 4:40 AM CDT) WBC 8.67 3.80 - 9.90 K/cumm Hgb 8.1(L) 11.9 - 15.5 g/dL [facility] ([place]) Hct 24.6(L) 35.6 - 45.5 % [facility] ([place]) Plt 320 150 - 400 K/cumm [facility] ([place]) MPV 8.5(L) 9.1 - 12.3 fL [facility] ([place]) RBC 2.81(L) 3.90 - 5.20 M/cumm [facility] ([place]) MCV 87.5 81.3 - 96.4 fL [facility] ([place]) MCH 28.8 27.1 - 33.3 pg [facility] ([place]) MCHC 32.9 32.3 - 35.7 g/dL [facility] ([place]) RDW CV 12.6 11.1 - 14.9 % [facility] ([place]) RDW SD 40.8 35.7 - 48.1 fL [facility] ([place]) NRBC abs 0.00 0.00 - 0.01 K/cumm [facility] ([place]) Blood Venous blood specimen / Unknown 07/30/2024 4:40 AM CDT 07/30/2024 4:57 AM CDT Kelly Oviedo MD LAB BLOOD ORDERABLE S Final Result [facility] ([place] 1 [facility] [place] [address] * Antibody identification (07/30/2024 4:40 AM CDT) Antibody Identification Interpretation Passive Anti-D Blood 07/30/2024 4:40 AM CDT 07/30/2024 4:57 AM CDT Kelly Oviedo MD LAB BLOOD BANK TEST ORDERABLES Final Result Performing Organization Address [facility] Co de Phone Number [facility] ([place]) 1 [facility] [place] [address] * ABO/Rh (07/30/2024 4:40 AM CDT) ABO/Rh O Negative Blood 07/30/2024 4:40 AM CDT 07/30/2024 4:57 AM CDT Narrative [facility] ([place]) - 07/30/2024 9:53 AM CDT Has the patient had Daratumumab or Isatuximab in the past 6 months?->Unknown Kelly Oviedo MD LAB BLOOD BANK TEST ORDERABLES Final Result [facility] ([place] 1 [facility] [place] [address] * (ABNORMAL) Antibody screen (07/30/2024 4:40 AM CDT) Steph, indirect, Gel Interpretation Positive( A) Blood 07/30/2024 4:40 AM CDT 07/30/2024 4:57 AM CDT Narrative [facility] ([place]) - 07/30/2024 9:53 AM CDT Has the patient had Daratumumab or Isatuximab in the past 6 months?->Unknown Kelly Oviedo MD LAB BLOOD BANK TEST ORDERABLES Final Result [facility] ([place]) 1 [place] [address] * Magnesium (07/30/2024 4:40 AM CDT) Pathologist [facility] Magnesium 1.8 1.4 - 2.5 mg/dL Blood 07/30/2024 4:40 AM CDT 07/30/2024 4:57 AM CDT Kelly Oviedo MD LAB BLOOD ORDERABLE S Final Result Performing Organization Address City/[facility]/ZIP Co de Phone Number [facility] ([place]) [address] [place] [address] * (ABNORMAL) Comprehensive metabolic panel (07/30/2024 4:40 AM CDT) Sodium 139 135 - 145 mmol/L Potassium, pl 3.8 3.3 - 4.9 mmol/L [facility] ([place]) Chloride 103 97 - 110 mmol/L [facility] ([place]) CO2 24 22 - 32 mmol/L [facility] ([place] Anion gap 12 2 - 15 mmol/L [facility] ([place]) BUN 12 6 - 25 mg/dL [facility] ([place]) Creatinine 0.79 0.60 - 1.10 mg/dL [facility] ([place]) Glucose 95 70 - 199 mg/dL [facility] ([place]) Comment: Interpretive Data Fasting glucose >/= 126 mg/dl is diagnostic for diabetes. Fasting is defined as no caloric intake for at least 8 hours. Fasting glucose between 100 mg/dl to 125 mg/dl is diagnostic of prediabetes. In a patient with classic symptoms of hyperglycemia or hyperglycemic crisis, a random glucose >/= 200 mg/dl is diagnostic for diabetes. In the absence of unequivocal hyperglycemia, results should be confirmed by repeat testing. The classification and Diagnosis of Diabetes Diabetes Care 2021; 46: S19-S40. Current interpretive data was last revised 2022. Calcium 9.1 8.5 - 10.3 mg/dL [facility] ([place]) Bilirubin, total 0.3 0.1 - 1.2 mg/dL [facility] ([place]) Protein, pl 5.9(L) 6.5 - 8.5 g/dL [facility] ([place]) Albumin 3.0(L) 3.5 - 5.0 g/dL [facility] ([place]) Alk phos 164(H) 40 - 130 Units/L [facility] ([place]) ALT 17 7 - 45 Units/L [facility] ([place]) AST 16 10 - 45 Units/L [facility] ([place]) Blood 07/30/2024 4:4 0 AM CDT 07/30/2024 4:57 AM CDT us Kelly Oviedo MD LAB BLOOD ORDERABLE S Final Result [facility] ([place]) 1 [facility] [place] [address] * (ABNORMAL) Uric acid (07/30/2024 4:39 AM CDT) Uric acid 7.6(H) 2.5 - 7.0 mg/dL Blood 07/30/2024 4:39 AM CDT 07/30/2024 6:10 AM CDT us Killian Paul MD LAB BLOOD ORDERABLE S Final Result [facility] ([place] 1 [facility] [place] [address] * (ABNORMAL) Lactate dehydrogenase (LD) (07/30/2024 4:39 AM CDT) Lactate dehydrogenase (LDH) 252(H) 100 - 250 Units/L Blood 07/30/2024 4:39 AM CDT 07/30/2024 6:10 AM CDT us Killian Paul MD LAB BLOOD ORDERABLE S Final Result [facility] ([place]) 1 [facility] [employer] [place] [address] * ECG 12 lead (07/30/2024 4:21 AM CDT) 07/30/2024 4:21 AM CDT Narrative [facility] - 07/30/2024 7:14 AM CDT Vent Rate: 70 bpm RR Interval: 849 msec MO Interval: 154 msec QRS Duration: 90 msec QT Interval: 358 msec QTC Interval: 379 msec P-R-T [place]: 50 - 46 - 34 degrees IMPRESSION: SINUS RHYTHM NORMAL ECG Compared to prior EKG, heart rate is now slower Electronically Signed By: Dr Nick Bonilla us Kelly Oviedo MD ECG ORDERABLES Fin al Result Performing Organization Address [facility] Co de Phone Number [facility] [employer] [facility] * Rh Immune Globulin Eval (07/25/2024 6:53 AM CDT) RhIg Eligible Yes RhIg Administration 1 vial of Rh Immune Globulin (300 mcg dose) [facility] ([place]) Blood 07/25/2024 6:53 AM CDT 07/25/2024 6:56 AM CDT Narrative [facility] ([place]) - 07/25/2024 7:38 AM CDT Number of weeks ?->20 weeks or greater antibody screen result:->Negative Rhogam given?->Given Date Given?->05/15/24 Number of vials requested:->1 us Angel Horan MD LAB BLOOD BANK TEST ORDERA BLES Final Result Performing Organization Address City/[facility]/ZIP Co de Phone Number [facility] ([place]) 1 [facility] [place] [address] * erythrocyte screen (07/25/2024 6:53 AM CDT) Pathologist [facility] Screen Interpretation Negative Comment:Testing performed by : [facility], 1 [place] [address] Blood 07/25/2024 6:53 AM CDT 07/25/2024 10:34 AM CDT us Angel Horan MD LAB BLOOD ORDERABLES Final Result [facility] ([place]) 1 [facility] [place] [address] * (ABNORMAL) CBC without differential (07/25/2024 6:53 AM CDT) Pathologist [facility] WBC 11.26(H) 3.80 - 9.90 K/cumm Hgb 8.8(L) 11.9 - 15.5 g/dL [facility] ([place]) Hct 25.6(L) 35.6 - 45.5 % [facility] ([place]) Plt 266 150 - 400 K/cumm [facility] ([place]) MPV 8.7(L) 9.1 - 12.3 fL [facility] ([place]) RBC 2.93(L) 3.90 - 5.20 M/cumm [facility] ([place]) MCV 87.4 81.3 - 96.4 fL [facility] ([place]) MCH 30.0 27.1 - 33.3 pg [facility] ([place]) MCHC 34.4 32.3 - 35.7 g/dL [facility] ([place]) RDW CV 13.2 11.1 - 14.9 % [facility] ([place]) RDW SD 41.8 35.7 - 48.1 fL [facility] ([place]) NRBC abs 0.00 0.00 - 0.01 K/cumm [facility] ([place]) Blood 07/25/2024 6:53 AM CDT 07/25/2024 6:56 AM CDT us Angel Horan MD LAB BLOOD ORDERABLES Final Result [facility] ([place]) 1 [facility] [place] [address] * Surgical pathology (07/24/2024 9:44 AM CDT) Tissue (Fallopian tube, sterilization) 07/24/2024 9:03 AM CDT Tissue specimen (specimen) (Fallopian tube, sterilization) 07/24/2024 9:07 AM CDT Narrative [facility] ([place]) - 08/05/2024 3:14 PM CDT EPIC results best viewed via link to PDF [facility] Department of Pathology [address] [place] [id number] Note to Patients: This report may contain a detailed description of human tissue sent by a health care provider to the laboratory for pathologic evaluation. The content of this report is essential for diagnosis and may provide important critical findings. This information may be unfamiliar to patients to review without a medical professional present. It is advised that the patient review this report in the presence of a health care provider who can answer questions and explain the details. Final Report Patient Name: GAYLA MULTANI Address: [address] [place] [id number] Gender: F : 1990 (Age: 33) Service: Obstetrics Location: [facility] Hospital #: [id number] Patient Type: [facility] Taken: 07/24/2024 Received: 08/04/2024 Accessioned: 08/04/2024 Reported: 08/05/2024 Physician(s):Angel Horan M.D. Diagnosis: Bilateral fallopian tubes, bilateral salpingectomy: - No significant histopathologic abnormalities (complete luminal cross-sections identified). Tian English MD Report Electronically Reviewed and Signed Out By Tian English MD 08/05/2024 15:14:49 Specimen(s) Received: A: IUP 39.1, repeat C/S with bilateral salpingectomy Microscopic Description: Sections show complete luminal cross-sections of fallopian tube with no significant histopathologic abnormalities. Clinical History: Previous section. Sterilization. Repeat section with bilateral salpingectomy. Gross Description: Received in a single formalin filled container labeled with GAYLA MULTANI and IUP repeat C/S with bilateral salpingectomy. It consists of two segments of apparent fallopian tube measuring 7.5 and 8.0 cm in length by up to 1.0 cm in diameter. The fimbriated ends are present. The serosal surfaces are smooth and shiny and serial cross sections reveal no discrete gross abnormalities. Cross sections of each are submitted: shorter in block 1; longer in block 2. Macarena Driver R.N., PAshleigh/Vivian Marino M.D. REPORT IMAGES AND SCANNED DOCUMENTS, IF INCLUDED, ONLY VIEWABLE IN PDF VERSION OF REPORT The performance characteristics of some immunohistochemical stains, fluorescence in-situ hybridization tests and immunophenotyping by flow cytometry cited in this report (if any) were determined by the Surgical Pathology Department at [facility] as part of an ongoing quality specialist program and in compliance with federally mandated regulations drawn from the Clinical Laboratory Improvement Act of 1988 (CLIA '88). Some of these tests rely on the use of analyte specific reagents and are subject to specific labeling requirements by the US Food and Drug Administration. Such diagnostic tests may only be performed in a facility that is certified by the Department of Health and Human Services as a high complexity laboratory under CLIA '88. The FDA has determined that such clearance or approval is not necessary. This test is used for clinical purposes. It should not be regarded as investigational or for research. Nevertheless, federal rules concerning the medical use of analyte specific reagents require that the following disclaimer be attached to the report: This test was developed and its performance characteristics determined by the Surgical Pathology Department [facility]. It has not been cleared or approved by the U. S. Food and Drug Administration. Note for decalcified specimens: This assay has not been validated on decalcified tissues. Results should be interpreted with caution given the possibility of false negativity on decalcified specimens us Angel Horan MD LAB PATHOLOGY ORDERABLES F inal Result PATHOLOGY [facility] ([place]) 1 [place], [place] [id number] * Blood Gas, Cord Venous (07/24/2024 8:47 AM CDT) pH Cord Kushal 7.34 pCO2 Cord Kushal 49 mmHg [facility] ([place]) pO2 Cord Kushal 29 mmHg [facility] ([place]) Base Excess Cord Kushal 0 mmol/L [facility] ([place]) HCO3 Cord Kushal (Calc) 26 mmol/L [facility] ([place]) O2 Sat Cord Ksuhal (Mansi) 54 % [facility] ([place]) Comment: Interpretive Data No Reference Ranges Established Current Interpretive Data was last revised on 2018 Cord blood 07/24/2024 8:47 AM CDT 07/24/2024 9:02 AM CDT Angel Horan MD LAB BLOOD ORDERABLES Final Result Performing Organization Address [facility] Co de Phone Number [facility] ([place]) 1 [facility] [place] [address] * Blood Gas, Cord Arterial (07/24/2024 8:47 AM CDT) pH Cord Art 7.26 pCO2 Cord Art 60 mmHg [facility] ([place]) pO2 Cord Art 28 mmHg [facility] ([place]) Base Excess Cord Art -2 mmol/L [facility] ([place]) HCO3 Cord Art (Calc) 26 mmol/L [facility] ([place]) O2 Sat Cord Art (Mansi) 42 % [facility] ([place]) Comment: Interpretive Data No Reference Ranges Established Current Interpretive Data was last revised on 2018 Cord blood 07/24/2024 8:47 AM CDT 07/24/2024 9:02 AM CDT Angel Horan MD LAB BLOOD ORDERABLES Final Result JOHN MULLER ([place]) 1 [facility] [place] [address] * Spinal Block (07/24/2024 8:10 AM CDT) Narrative Jefry Valentin CRNA - 07/24/2024 8:10 AM CDJefry Pond CRNA 07/24/2024 8:10 AM Spinal Block Patient location: L&D Reason for block: primary anesthetic Staff: Supervising provider: Chris Fernandez MD Placed by: PHONE BANKER:Jefry Valentin CRNA Procedure prep: Preprocedure checklist: patient identified, procedure contraindications assessed, site marked, procedure consent, surgical consent, IV checked, risks, benefits and alternatives discussed, monitors and equipment checked and timeout performed Patient position: sitting Procedure performed while patient: awake Monitoring: oximetry and blood pressure Prep solution: chlorhexadine/alcohol PPE: provider hat/mask, sterile gloves and sterile drape Skin infiltrated with lidocaine 1%: yes Spinal: Approach: midline Introducer used: yes Location: L3-4 Spinal injection: CSF demonstrated, no aspiration of heme and no paresthesias noted Number of attempts: 1 Spinal Needle: Needle type: Nataly Needle gauge: 24 G Needle length: 9 cm Assessment: Sensory deficit - left: T4 Sensory deficit - right: T4 Events: patient tolerated procedure well with no complications Chris Fernandez MD ANESTHESIA ORDERABLES nal Result * (ABNORMAL) Differential, auto (07/24/2024 5:54 AM CDT) Neutrophil abs 8.19(H) 1.50 - 6.50 K/cumm Imm gran abs 0.06 0.00 - 0.10 K/cumm [facility] ([place]) Lymphocyte abs 2.50 0.80 - 3.30 K/cumm [facility] ([place]) Monocyte abs 0.95(H) 0.20 - 0.80 K/cumm [facility] ([place]) Eosinophil abs 0.24 0.00 - 0.50 K/cumm [facility] ([place]) Basophil abs 0.04 0.00 - 0.10 K/cumm [facility] ([place]) Neutrophil pct 68.4 % [facility] ([place]) Comment: Interpretive Data Percent cell count reference ranges are not reported, since discordance with absolute values may lead to misinterpretation of CBC data. Current Interpretive Data was last revised on 2017. Imm gran pct 0.5 % [facility] ([place]) Comment: Interpretive Data Percent cell count reference ranges are not reported, since discordance with absolute values may lead to misinterpretation of CBC data. Current Interpretive Data was last revised on 2017. Lymphocyte pct 20.9 % [facility] ([place]) Comment: Interpretive Data Percent cell count reference ranges are not reported, since discordance with absolute values may lead to misinterpretation of CBC data. Current Interpretive Data was last revised on 2017. Monocyte pct 7.9 % [facility] ([place]) Comment: Interpretive Data Percent cell count reference ranges are not reported, since discordance with absolute values may lead to misinterpretation of CBC data. Current Interpretive Data was last revised on 2017. Eosinophil pct 2.0 % [facility] ([place]) Comment: Interpretive Data Percent cell count reference ranges are not reported, since discordance with absolute values may lead to misinterpretation of CBC data. Current Interpretive Data was last revised on 2017. Basophil pct 0.3 % [facility] ([place]) Comment: Interpretive Data Percent cell count reference ranges are not reported, since discordance with absolute values may lead to misinterpretation of CBC data. Current Interpretive Data was last revised on 2017. Blood 07/24/2024 5:54 AM CDT 07/24/2024 6:03 AM CDT us Angel Horan MD LAB BLOOD ORDERABLES Final Result JOHN MULLER ([place]) 1 [facility] [place] [address] * (ABNORMAL) CBC with auto differential (07/24/2024 5:54 AM CDT) WBC 11.98(H) 3.80 - 9.90 K/cumm Hgb 10.5(L) 11.9 - 15.5 g/dL [facility] ([place]) Hct 30.8(L) 35.6 - 45.5 % [facility] ([place]) Plt 289 150 - 400 K/cumm [facility] ([place]) MPV 8.6(L) 9.1 - 12.3 fL [facility] ([place]) RBC 3.58(L) 3.90 - 5.20 M/cumm [facility] ([place]) MCV 86.0 81.3 - 96.4 fL [facility] ([place]) MCH 29.3 27.1 - 33.3 pg [facility] ([place]) MCHC 34.1 32.3 - 35.7 g/dL [facility] ([place]) RDW CV 13.1 11.1 - 14.9 % JOHN MULLER ([place]) RDW SD 40.7 35.7 - 48.1 fL [facility] NRBC abs 0.00 0.00 - 0.01 K/cumm [facility] (J[place]LENE) Blood 07/24/2024 5:54 AM CDT 07/24/2024 6:03 AM CDT Angel Horan MD LAB BLOOD ORDERABLES Final Result Performing Organization Address [facility]/ZIP Co de Phone Number JOHN MULLER ([place]) 1 [facility] [place] [address] * ABO/Rh (07/24/2024 5:54 AM CDT) ABO/Rh O Negative Blood 07/24/2024 5:54 AM CDT 07/24/2024 6:03 AM CDT Narrative JOHN MULLER ([place]) - 07/24/2024 6:53 AM CDT Has the patient had Daratumumab or Isatuximab in the past 6 months?->Unknown Angel Horan MD LAB BLOOD BANK TEST ORDERA BLES Final Result JOHN MULLER ([place]) 1 [facility] [place] [employer] [place] [address] * RPR Blood (07/24/2024 5:54 AM CDT) RPR Nonreactive Nonreactive Comment:Testing performed by : [facility], [address] [place] [address], [place]., [address] Blood 07/24/2024 5:54 AM CDT 07/24/2024 9:38 AM CDT Result [facility] Angel Horan MD LAB MICROBIOLOGY - GENERAL ORDERABLES Final Result JOHN MULLER [place]) 1 [facility] [place] [address] * Antibody screen (07/24/2024 5:54 AM CDT) Steph, indirect, Gel Interpretation Negative ABSC Blood 07/24/2024 5:54 AM CDT 07/24/2024 6:03 AM CDT Narrative JOHN RENZO ([place]) - 07/24/2024 6:53 AM CDT Has the patient had Daratumumab or Isatuximab in the past 6 months?->Unknown Result [facility] Angel Horan MD LAB BLOOD BANK TEST ORDERA BLES Final Result Performing Organization Address City/[facility]/ZIP Co de Phone Number JOHN MULLER ([place]) [address] [place] [address] [place] [address] * POCT urinalysis dipstick (07/20/2024 1:07 PM CDT) Glucose, ur, POC Negative Negative Ketones, ur, POC Negative Negative Protein, ur, POC Negative Negative Lot Number [id number] Urine 07/20/2024 1:07 PM CDT Result [facility] Angel Horan MD POINT OF CARE TEST ORDERAB LES Final Result * POCT urinalysis dipstick (07/13/2024 1:20 PM CDT) Glucose, ur, POC Negative Negative Ketones, ur, POC Negative Negative Protein, ur, POC Negative Negative Lot Number [id number] Urine 07/13/2024 1:20 PM CDT Result [facility] Angel Horan MD POINT OF CARE TEST ORDERAB LES Final Result * eGFR (06/30/2024 2:03 AM CDT) eGFR >90 >=60 mL/min/1. 73 m2 Comment: Interpretive Data Reference Interval Normal >/= 90 mL/min/1.73m2 Mildly decreased* 60 - 89 mL/min/1.73m2 Mildly to moderately decreased 45 - 59 mL/min/1.73m2 Moderately to severely decreased 30 - 44 mL/min/1.73m2 Severely decreased 15 - 29 mL/min/1.73m2 Kidney Failure < 15 mL/min/1.73m2 *Relative to young adult level Estimated glomerular filtration rate is determined by the 2020 CKD-EPI equation recommended by the National Kidney Foundation (A Unifying Approach to GFR Estimation: Recommendations of the NKF-ASK Task Force on Reassessing the Inclusion of Race in Diagnosing Kidney Disease, JASN 2020). The CKD-EPI equation should not be used for patients with unstable renal function and has not been validated in children and those over 70. Current interpretive data was last reviewed 2021. Blood 06/30/2024 2:03 AM CDT 06/30/2024 2:25 AM CDT us Nuria Mckenna MD LAB BLOOD ORDERABLE S Final Result [facility] ([place]) 1 [facility] [place] [address] * Urinalysis reflex to microscopic and culture Urine, clean voided (06/30/2024 2:03 AM CDT) Color, ur Yellow Yellow Clarity, ur Clear Clear JOHN Don ([place]E) Specific gravity, ur 1.012 1.003 - 1.030 JOHN MULLER ([place]) pH, urine 6.5 JOHN MULLER ([place]) Comment: Interpretive Data U rine pH is affected by diet, medications, systemic acid-base disturbances, and renal tubular function. pH may affect urinary stone formation. For example, urine pH below 6.0 may help reduce the tendency for calcium phosphate stones and pH greater than 6.0 may reduce the tendency for uric acid stone formation. Source: [facility] Current Interpretive Data was last revised on 2017 Protein, ur ql Negative Negative [facility] ([place]) Glucose, ur ql Negative Negative [facility] ([place]) Ketones, ur Negative Negative [facility] ([place]) Bilirubin, ur Negative Negative [facility] ([place]) Blood, ur Negative Negative [facility] ([place]) Urobilinogen, ur <2.0 <2.0 mg/dL [facility] ([place]) Nitrite, ur Negative Negative [facility] ([place]) Leukocyte esterase, ur Negative Negative [facility] ([place]) UA reflex comment Reflex conditions for microscopic UA and culture not met. JOHN MULLER ([place]) Urine, clean voided 06/30/2024 2:03 AM CDT 06/30/2024 2:25 AM CDT us Nuria Mckenna MD LAB MICROBIOLOGY - GENERAL ORDERABLES Final Result Performing Organization Address [facility] Co de Phone Number JOHN MULLER ([place]) 1 [facility] [place] [address] * Protein / creatinine ratio, urine, random (06/30/2024 2:03 AM CDT) Protein, ur, quant 10.0 mg/dL Comment: Interpretive Data No reference range established. Current interpretive data was last revised 2018. Creatinine Ur 59.7 mg/dL JOHN MULLER ([place]) Comment: Interpretive Data No reference range established. Current interpretive data was last revised 2018. Protein/creatinin e ratio 167.5 0.0 - 180.0 mg/g CR [facility] ([place]) Urine 06/30/2024 2:03 AM CDT 06/30/2024 2:25 AM CDT us Nuria Mckenna MD LAB URINE ORDERABLE S Final Result Performing Organization Address City/[facility]/ZIP Co de Phone Number JOHN RENZO ([place]) 1 [facility] [place] [address] * (ABNORMAL) CBC without differential (06/30/2024 2:03 AM CDT) WBC 11.58(H) 3.80 - 9.90 K/cumm Hgb 10.8(L) 11.9 - 15.5 g/dL [facility] ([place]) Hct 31.7(L) 35.6 - 45.5 % [facility] ([place]) Plt 328 150 - 400 K/cumm [facility] ([place]) MPV 8.7(L) 9.1 - 12.3 fL [facility] ([place]) RBC 3.65(L) 3.90 - 5.20 M/cumm [facility] ([place]) MCV 86.8 81.3 - 96.4 fL [facility] ([place]) MCH 29.6 27.1 - 33.3 pg [facility] ([place]) MCHC 34.1 32.3 - 35.7 g/dL [facility] ([place]) RDW CV 12.9 11.1 - 14.9 % [facility] ([place]) RDW SD 40.8 35.7 - 48.1 fL [facility] NRBC abs 0.00 0.00 - 0.01 K/cumm [facility] ([place]) Blood 06/30/2024 2:03 AM CDT 06/30/2024 2:25 AM CDT us Nuria Mckenna MD LAB BLOOD ORDERABLE S Final Result [facility] ([place]) 1 [facility] [place] [address] * Uric acid (06/30/2024 2:03 AM CDT) Uric acid 4.7 2.5 - 7.0 mg/dL Blood 06/30/2024 2:03 AM CDT 06/30/2024 2:25 AM CDT us Nuria Mckenna MD LAB BLOOD ORDERABLE S Final Result JOHN MULLER ([place]) 1 [facility] [place] [address] * Lactate dehydrogenase (LD) (06/30/2024 2:03 AM CDT) Lactate dehydrogenase (LDH) 159 100 - 250 Units/L Blood 06/30/2024 2:03 AM CDT 06/30/2024 2:25 AM CDT Nuria Mckenna MD LAB BLOOD ORDERABLE S Final Result Performing Organization Address City/[facility] Co de Phone Number JOHN MULLER ([place]) 1 [facility] [place] [address] * (ABNORMAL) Comprehensive metabolic panel (06/30/2024 2:03 AM CDT) Sodium 137 135 - 145 mmol/L Potassium, pl 3.8 3.3 - 4.9 mmol/L [facility] ([place]) Chloride 103 97 - 110 mmol/L [facility] ([place]) CO2 19(L) 22 - 32 mmol/L [facility] ([place]) Anion gap 16(H) 2 - 15 mmol/L [facility] ([place]) BUN 7 6 - 25 mg/dL [facility] ([place]) Creatinine 0.46(L) 0.60 - 1.10 mg/dL [facility] ([place]) Glucose 130 70 - 199 mg/dL [facility] ([place]) Comment: Interpretive Data Fasting glucose >/= 126 mg/dl is diagnostic for diabetes. Fasting is defined as no caloric intake for at least 8 hours. Fasting glucose between 100 mg/dl to 125 mg/dl is diagnostic of prediabetes. In a patient with classic symptoms of hyperglycemia or hyperglycemic crisis, a random glucose >/= 200 mg/dl is diagnostic for diabetes. In the absence of unequivocal hyperglycemia, results should be confirmed by repeat testing. The classification and Diagnosis of Diabetes Diabetes Care 2021; 46: S19-S40. Current interpretive data was last revised 2022. Calcium 9.5 8.5 - 10.3 mg/dL [facility] ([place]) Bilirubin, total 0.3 0.1 - 1.2 mg/dL [facility] ([place]) Protein, pl 6.8 6.5 - 8.5 g/dL [facility] ([place]) Albumin 3.7 3.5 - 5.0 g/dL [facility] ([place]) Alk phos 265(H) 40 - 130 Units/L [facility] ([place]) ALT 46(H) 7 - 45 Units/L [facility] ([place]) AST 34 10 - 45 Units/L [facility] ([place]) Blood 06/30/2024 2:03 AM CDT 06/30/2024 2:25 AM CDT Nuria Mckenna MD LAB BLOOD ORDERABLE S Final Result Performing Organization Address [facility] Co de Phone Number JOHN [facility] ([place]) 1 [facility] [place] [address] * ECG 12 lead (06/30/2024 1:11 AM CDT) 06/30/2024 1:11 AM CDT Narrative [facility] - 06/30/2024 6:49 AM CDT Vent Rate: 87 bpm RR Interval: 688 msec MO Interval: 130 msec QRS Duration: 97 msec QT Interval: 359 msec QTC Interval: 403 msec P-R-T [place]: 4 - 70 - 20 degrees IMPRESSION: SINUS RHYTHM NORMAL ECG Electronically Signed By: Juwan Chery MD Guadalupe Mars MD ECG ORDERABLES Final Result Performing Organization Address [facility]/ZIP Co de Phone Number [facility] [employer] [facility] * (ABNORMAL) Protein / creatinine ratio, urine, random (06/29/2024 2:25 PM CDT) Protein, ur, quant 9.0 mg/dL Comment: Interpretive Data No reference range established. Current interpretive data was last revised 2018. Creatinine Ur 46.8 mg/dL [facility] ([place]) Comment: Interpretive Data No reference range established. Current interpretive data was last revised 2018. Protein/creatinin e ratio 192.3(H) 0.0 - 180.0 mg/g CR JOHN MULLER ([place]) Urine 06/29/2024 2:25 PM CDT 06/29/2024 3:42 PM CDT Angel Horan MD LAB URINE ORDERABLES Final Result Performing Organization Address City/[facility] Co de Phone Number JOHN MULLER ([place]) 1 [facility] [place] [address] * Group B streptococcus culture, penicillin allergic Vaginal/Rectal (06/29/2024 1:30 PM CDT) CULTURE, GROUP B STREP WITH SUSCEPTIBILITY [employer] ryan Agrawal Comment: CULTURE, GROUP B STREP WITH SUSCEPTIBILITY Micro Number: [id number] Test Status: Final Specimen Source: Vag/rectal Specimen Quality: Adequate Result: No group B Streptococcus isolated Note per CDC guidelines optimal recovery is achieved by swabbing both the lower vagina and rectum (through the anal sphincter). Vaginal/Rectal 06/29/2024 1: 30 PM CDT 06/30/2024 4:27 AM CDT Result [facility] Angel Horan MD LAB MICROBIOLOGY - GENERAL ORDERABLES Final Result Performing Organization Address [facility] Co de Phone Number [facility] [address] [place] [address] * (ABNORMAL) POCT OB urine short dip (glucose, protein, ketones) (06/29/2024 1:28 PM CDT) Glucose, ur, POC Negative Negative MG/DL Protein, ur, POC 1+(A) Negative Ketones, ur, POC Trace(A) Negative Lot Number [id number] Urine 06/29/2024 1:28 PM CDT Angel Horan MD POINT OF CARE TEST ORDERAB LES Final Result * POCT urinalysis dipstick (06/16/2024 3:38 PM CDT) Glucose, ur, POC Negative Negative MG/DL Ketones, ur, POC Negative Negative Protein, ur, POC Negative Negative Lot Number [id number] Urine 06/16/2024 3:38 PM CDT Result [facility] Angel Horan MD POINT OF CARE TEST ORDERAB LES Final Result * US Ob Follow Up (06/16/2024 3:24 PM CDT) Pathologist [facility] Fetus# Fetus1 VIEWPOINT Estimated Weight 2,649 g&grams VIEWPOINT Placenta Details left lateral VIEWPOINT Presentation Vertex VIEWPOINT Anatomical Region Laterality Modality Abdomen N/A Ultrasound 06/16/2024 3:04 PM CDT Impressions 06/20/2024 6:26 PM CDT 1. 35w 5d AGA by this ultrasound. 2. EFW is 5 lb 13 oz representing normal rate of growth, 86%tile. 3. MEENA of 15.2 cm is normal. 4. Incidentally, maternal gallbladder contains several stones. Formal GB US can be considered. Narrative Procedure Note Angel Horan MD - 06/20/2024 IMPRESSION: 1. 35w 5d AGA by this ultrasound. 2. EFW is 5 lb 13 oz representing normal rate of growth, 86%tile. 3. MEENA of 15.2 cm is normal. 4. Incidentally, maternal gallbladder contains several stones. FormalGB US can be considered. Result [facility] Angel Horan MD IMG OB US PROCEDURES Final Result * (ABNORMAL) POCT urinalysis dipstick (06/05/2024 8:14 AM CDT) Pathologist [facility] Glucose, ur, POC Negative Negative MG/DL Ketones, ur, POC Negative Negative Protein, ur, POC Trace(A) Negative Lot Number [id number] Urine 06/05/2024 8:14 AM CDT Result [facility] Angel Hoarn MD POINT OF CARE TEST ORDERAB LES Final Result * Pap and HPV, reflex to HPV Genotypes (01/17/2024 4:25 PM STORAGE ENGINEER) CLINICAL INFORMATION: [facility] Comment:None given LMP [facility] Comment:A Previous Pap [facility] Comment:NONE GIVEN Prev. Bx [facility] Comment:NONE GIVEN SOURCE: [facility] Comment:Cervix, Endocervix Pap, specimen adequacy [facility] Comment: Satisfactory for evaluation. Endocervical/transformation zone component present. Age and/or menstrual status not provided HPV interp [facility] Comment: Cytology Results: Negative for intraepithelial lesion or malignancy. COMMENTS [facility] Comment: This Pap test has been evaluated with computer assisted technology. Metrology Manager [facility] Comment: LM, CT(ASCP) CT screening location: [place] [address] [address] [place] [address] Comment [facility] Comment: EXPLANATORY NOTE: The Pap is a screening test for cervical cancer. It is not a diagnostic test and is subject to false negative and false positive results. It is most reliable when a satisfactory sample, regularly obtained, is submitted with relevant clinical findings and history, and when the Pap result is evaluated along with historic and current clinical information. Human papillomavirus DNA, High Risk E6/E7 Not Detected NOT DETECTED [facility] Comment: Not Detected High Risk HPV types (16,18,31,33,35,39,45,51,52, 56,58,59,66,68) were not detected. Other HPV types which cause anogenital lesions may be present. The significance of the other types of HPV in malignant processes has not been established. Methodology: Real Time PCR Thin prep-Endocervica l 01/17/2024 4:25 PM STORAGE ENGINEER 01/20/2024 6:28 AM STORAGE ENGINEER Angel Horan MD LAB CYTOLOGY ORDERABLES Fi nal Result Performing Organization Address City/[facility]/ZIP Co de Phone Number [place] [address] [address] [place] [id number] [address] * Hepatitis C antibody Blood (01/17/2024 3:07 PM STORAGE ENGINEER) Hep C Ab Nonreactive Nonreactive Comment: Interpretive Data Nonreactive: Antibodies to HCV not detected. Does NOT exclude the possibility of recent exposure to HCV. Equivocal: Equivocal for HCV antibodies. Supplemental molecular testing will be automatically performed to determine infection status in accordance with current CDC screening recommendations. Reactive: Positive for HCV antibodies. This may represent current or past HCV infection. Supplemental molecular testing will be automatically performed to determine current infection status in accordance with current CDC screening recommendations. Interpretive data was last revised on 2019. Testing performed by: [facility], [address] [place] [address], [place] [address] Blood 01/17/2024 3:07 PM STORAGE ENGINEER 01/17/2024 7:03 PM STORAGE ENGINEER Angel Horan MD LAB MICROBIOLOGY - GENERAL ORDERABLES Final Result [facility] ([place]) 1 [facility] [place] [address] from Last 3 Months or Most Recently Relevant to Health Maintenance Insurance [facility] [id number] Member Subscriber Plan / Payer (Ef fective 2023-Present) Name:Gayla Multani Member ID:[id number] Relation to Subscriber:Self Name:Gayla Multani Subscriber ID:[id number] Payer ID:[id number] Type:HEALTHLINK HMO/PPO Address: [facility] [id number] [facility] [id number] Member Subscriber Plan / Payer (Ef fective 2023-Present) Name:Gayla Multani Member ID:[id number] Relation to Subscriber:Self Name:Gayla Multani Subscriber ID:[id number] Payer ID:[id number] Type:HEALTHLINK HMO/PPO Address: [facility] [id number] CARE Advance Directives For more information, please contact: [phone] * Full Code (Latest Code Status on File) Date Activated Date Inactivated Comments 07/30/2024 5:32 PM 08/01/2024 5:23 PM * Full Code Date Activated Date Inactivated Comments 07/24/2024 9:58 AM 07/26/2024 6:20 PM * Full Code Date Activated Date Inactivated Comments 07/24/2024 5:34 AM 07/24/2024 9:58 AM Full CPR in case of cardiopulmonary arrest Care Teams Compressor House Operator Relationship Specialty Start Date End Date Unknown, Notinfile PCP - General 10/10/22 Bertha Barker MD [address] [facility] [address] [place] [address] Consulting Physician Cardiology 04/09/24 Amy Chiang Primary Franchise Manager 04/09/24 Angel Horan MD [address] [place] [address] [address] [place] [address] Securities Counselor Obstetrics and Gynecology 07/26/24
--- OUTSIDE RECORDS SUMMARY | 2024-08-22 21:50 | XMS_ITS ---
Author Name [facility] [place] [facility] [place] [facility] [place] Address [address] [place] [address] Care Team Providers Care Structural Draftsman Name Role Phone USAMA LOPEZ Primary Care [...] TER & EMPLO YERS Mar 11, 2018 [id number] [phone] AXEL MULTANI SPOUSE [place] PREFERRED PROVIDER ORGANIZAT ION (PPO) TEAMS TER + EMPLO YERS Mar 11, 2018 [id number] [phone] AXEL MULTANI SPOUSE LDI RX PRESCRIPT ION TEAMS TER & EMPLO YERS Mar 11, 2018 [id number] [phone] AGUSTINA MULTANIY SPOUSE Selected Encounter This section includes the information on record at [place] for the Encounter. Date/Time Encounter Type Encounter Description Reason Provider Source July 27, 2024 08:43 AM Outpatient Encounter ADMIN PAT ACTIVTIES (MASNONCT) TONO MCRAE Ramesh Encounter Template Text not used by [place] Plan of Treatment: Future Appointments (+ 6 months) and Future Tests (+/- 45 days) The Plan of Treatment section includes future care activities for the patient [facility] [place] [facility] This section includes future appointments and future orders which are active, pending or scheduled. Future Appointments This section includes appointments that were scheduled to occur 6 months from the date of the Encounter, up to a maximum of 20 appointments. The data comes from all [facility] facilities. Appointment Date/Time Appointment Type Appointme nt Facility Name July 30, 2024 11:30 AM AMBULATORY - MEDICINE [facility] August 06, 2024 01:00 PM AMBULATORY - MEDICINE [facility] Aug 12, 2024 10:00 AM AMBULATORY MEDICINE [facility] Aug 26, 2024 10:00 AM AMBULATORY MEDICINE [facility] Sep 18, 2024 11:00 AM AMBULATORY MEDICINE [facility] Oct 12, 2024 03:15 PM AMBULATORY - MEDICINE [facility] Social History: Smoking Status [...] 28, 2018 10:42 AM [place]-TOBACCO FORMER USER [facility] Tobacco Use History This section includes a history of the smoking, or tobacco-related health factors, that were collected on or before the date of the Encounter. The data comes from the [place] facility where the Encounter took place. Date/Time Smoking Status/Tobacco Use Comment F acility Nov 28, 2018 10:42 AM MS-TOBACCO QUIT 1 TO < 5 YRS [facility] Encounter Notes: All associated encounter notes This section contains the clinical notes associated to the Encounter. Date/Time Encounter Note(s) Provider Source July 27, 2024 08:43 AM PHARMACY MEDICATIO N MGT DISCHARGE NOTE: LOCAL TITLE: PHARMACY COMMUNITY CARE PRESCRIPTION PROCESSING NOT STANDARD TITLE: PHARMACY MEDICATION MGT DISCHARGE NOTE DATE OF NOTE: JULY 27, 2024@08:43 ENTRY DATE: JULY 27, 2024@08:43:17 AUTHOR: TONO MCRAE WHI EXP COSIGNER: URGENCY: STATUS: COMPLETED Pharmacy service received prescription(s) via: Inbound ERx ELIGIBILITY: [facility] ([facility]) eligibility has been verified and/or is documented. PRESCRIPTION INFORMATION: Provider Information:johny dominguez [facility], [phone] fax: [phone] 1) eRx Drug : docusate sodium 100 mg capsule (COLACE)eRx SIG : Take 1 capsule (100 mg total) by mouth 2 (two) times a day 2) eRx Drug : ibuprofen 600 mg tablet (ADVIL,MOTRIN)eRx SIG : Take 1 tablet (600 mg total) by mouth every 6 (six) hours as needed for pain 3) eRx Drug : hydrocodone 5 mg-acetaminophen 325 mg tablet (NORCO)eRx SIG : Take 1 tablet by mouth every 6 (six) hours as needed for pain Called pt and she advised that she had already gotten medications at local pharmacy and did not need these meds. Cancelled RXs as they were already filled at local pharmacy. FYI to CEMENT AND CONCRETE PLANT WORKER: Pt recently discharged from hospital following . /debi/ TONO MCRAE PharmD [facility] Pharmacist, Pharmacy Signed: 07/27/2024 17:14 Receipt Acknowledged By: 07/30/2024 13:26 /debi/ MIGUEL Bauer, [employer]CRETE PLANT WORKER Maternity Mainframe Systems Administrator TONO MCRAE [facility]
--- OUTSIDE RECORDS SUMMARY | 2024-08-22 21:50 | XMS_ITS | Encounter Summary ---
Author Name [facility] [place] [facility] [place] [facility] [place] Address [address] [place] [address] Care Team Providers Care Product Strategy Director Name Role Phone USAMA LOPEZ Primary Care [...] TER & EMPLO YERS Mar 11, 2018 [id number] [phone] AXEL MULTANI SPOUSE [place] PREFERRED PROVIDER ORGANIZAT ION (PPO) TEAMS TER + EMPLO YERS Mar 11, 2018 [id number] [phone] AXEL MULTANI SPOUSE LDI RX PRESCRIPT ION TEAMS TER & EMPLO YERS Mar 11, 2018 [id number] [phone] GAYLA MULTANI SPOUSE Selected Encounter This section includes the information on record at [place] for the Encounter. Date/Time Encounter Type Encounter Description Reason Provider Source Mar 31, 2024 07:10 AM Outpatient Encounter COMMUNITY CARE CONSULT CAESAR,LUIS E M IHE Encounter Template Text not used by [facility] Plan of Treatment: Future Appointments (+ 6 months) and Future Tests (+/- 45 days) The Plan of Treatment section includes future care activities for the patient from all [place] treatmentfacilities. This section includes future appointments and future orders which are active, pending or scheduled. Future Appointments This section includes appointments that were scheduled to occur 6 months from the date of the Encounter, up to a maximum of 20 appointments. The data comes from all [place] treatment facilities. Appointment Date/Time Appointment Type Appointme nt Facility Name Apr 09, 2024 11:00 AM AMBULATORY - MEDICINE [facility] [facility] Apr 14, 2024 03:30 PM AMBULATORY - MEDICINE [facility] [address] [facility] Apr 21, 2024 08:30 AM AMBULATORY - MEDICINE [facility] Apr 22, 2024 11:30 AM AMBULATORY - NONE [facility] Leonel Schwartz [facility] Apr 28, 2024 11:00 AM AMBULATORY - MEDICINE [facility] [facility] May 26, 2024 11:00 AM AMBULATORY - MEDICINE [facility] Jun 12, 2024 02:00 PM AMBULATORY - MEDICINE [facility] Jun 15, 2024 02:00 PM AMBULATORY - NONE [facility] Jun 17, 2024 11:00 AM AMBULATORY - MEDICINE [facility] [address] [facility] Jun 24, 2024 11:00 AM AMBULATORY - MEDICINE [facility] Jun 24, 2024 02:00 PM AMBULATORY - MEDICINE [facility] [address] [facility] Jul 08, 2024 10:00 AM AMBULATORY - MEDICINE [facility] July 30, 2024 11:30 AM AMBULATORY - MEDICINE [facility] August 06, 2024 01:00 PM AMBULATORY - MEDICINE [facility] Aug 12, 2024 10:00 AM AMBULATORY - MEDICINE [facility] Aug 26, 2024 10:00 AM AMBULATORY - MEDICINE [facility] Sep 18, 2024 11:00 AM AMBULATORY - MEDICINE [facility] Social History: Smoking Status (Most current) and Tobacco Use (All prior to encounter date) This section includes the most current, and the historical, smoking and tobacco- related health factors from the [facility] facility where the Encounter took place. Current Smoking Status This section includes the most current smoking, or tobacco-related health factor, from the [place] facility where the Encounter took place. Date/Time Current Smoking Status Comment Facil ity Jan 30, 2023 03:14 PM VA-TOBACCO FORMER USER [facility] Tobacco Use History This section includes a history of the smoking, or tobacco-related health factors, that were collected on or before the date of the Encounter. The data comes from the [place] facility where the Encounter took place. Date/Time Smoking Status/Tobacco Use Comment F acility Jan 30, 2023 03:14 PM VA-TOBACCO QUIT 5 TO < 15 YRS [facility] Nov 04, 2017 09:12 AM QUIT TOBACCO >12 M O & <7 YRS AGO [facility] Encounter Notes: All associated encounter notes This section contains the clinical notes associated to the Encounter. Date/Time Encounter Note(s) Provider Source Mar 31, 2024 07:10 AM NONVA NOTE: LOCAL TITLE: COMMUNITY CARE-CARE COORDINATION PLAN NOTE [facility] STANDARD TITLE: NONVA NOTE DATE OF NOTE: MAR 31, 2024@07:10 ENTRY DATE: MAR 31, 2024@07:10:27 AUTHOR: ALISA GILES EXP COSIGNER: URGENCY: STATUS: COMPLETED COMMUNITY CARE-CARE COORDINATION PLAN NOTE [address] ADDENDA Community Care Consult: [facility] C[facility]IOLOG[facility] Consult No: [phone] [facility] Referral #: [id number] Chief Complaint: Hx of pulmonary edema with first and an echo in Feb 2024 showing diastolic dysfunction. Patient Admitted? No Level of Care Coordination Complex/Chronic Care Coordination was determined from: Chart Review Facility Community Care Office Contact Care Coordination Point of Contact: Alisa Giles RN Services: Moderate Care Coordination Services Case Management, if appropriate Direct communications with interdisciplinary team Plan: Continuation of care with current Provider for Cardiology referral. Auth. sent to [facility] and Fax to Provider. Assistance with navigation of scheduling, as needed. Obtain medical records and/or RFS form during episodes of care and recommended treatments. /debi/ ALISA GILES REGISTERED NURSE Signed: 03/31/2024 07:16 06/05/2024 ADDENDUM STATUS: COMPLETED Care Coordination Follow Up Level of Care Coordination Complex/Chronic Care Coordination was determined from: Chart Review, Phone call to /Family/Caregiver Services: Moderate Care Coordination Services Case Management, if appropriate Direct communications with interdisciplinary team Plan: at low risk for major cardiovascular complications with . She is at risk of volume overload, especially if she has recurrent preeclampsia. We discussed that preeclampsia can occur both during and after . We agree with continuing ASA 81mg daily for preeclampsia prevention. She is euvolemic on exam javier. We will check an NT-proBNP around 30 weeks and will have her start checking blood pressures to identify preeclampsia early, if it occurs. will prescribe lasix 10mg PO for her to have on hand, but she will not take it unless directed to by our clinic. Regarding delivery, there is no cardiac contraindication to vaginal delivery or regional anesthesia (planning for csection, as she has placenta previa). During surgery, would recommend judicious use of fluids. She does not need telemetry monitoring. Follow-up: CC provider will schedule a virtual follow-up in July after she delivers to see how she is doing. CONCLUSIONS:Normal left ventricular systolic function with no focal wall motion abnormalities. Normal left ventricular size. Normal left ventricular wall thickness. Diastolic dysfunction is present. Ejection Fraction is estimated to be 60-65 %.Right Ventricular Systolic Pressure could not be estimated due to inadequate visualization of TR jet.Normal pericardium with no significant pericardial effusion. CONTACT [place] contacted on May to discuss talked to she said she is 32 weeks gestation and planning a July 24. She is ready to have the baby girl, she is gaining so much weight. sounds really excited. No cc needs at this time. appreciative of the call. Action Needed? Yes f/u for any cc needs and post appt in july will be virtual with CC provider /debi/ YVONNE RIZORN MSN REGISTERED NURSE Signed: 06/05/2024 16:21 [facility]
--- OUTSIDE RECORDS SUMMARY | 2024-08-22 21:51 | XMS_ITS | Continuity of Care Document ---
Author Name DOD-MD Organization DOD-MD Care Team Providers Care Computational Physicist Name Role Phone [facility] Unavailable Unavailable Problems Combined list of problems from 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 It does not include entries that were removed or entered in error. Problem Status Onset Date Problem Type Date of Resolution Comments Source Anxiety Active Condition [facility] Elevated blood pressure reading without diagnosis of HTN (hypertension) Active Condition [facility] Irregular intermenstrual bleeding Active Condition [facility] Left side sciatica Active Condition [facility] Low back pain Active Condition [facility] Obesity Active Condition [facility] PCOS- polycystic ovary syndrome Active Condition [facility] Hip pain Inactive Condition 02/06/2023 [facility] EXAM, FORMAL OCCUPATIONAL HEALTH PROGRAM INCLUDING HEARING CONSERVATION PROGRAM, ESTABLISH BASELINE PRIOR TO OCCUPATIONAL WORKPLACE EXPOSURE Active Condition [facility] visit: ears/hearing exam for hearing conservation, treatment Inactive Condition [facility] Patient Education - Injury Prevention Active Condition [facility] ASTIGMATISM - REGULAR Active Condition [facility] Inquiry And Counseling: Contraceptive Practices Inactive Condition [facility] Vaccines Prophylactic Need Against Viral Diseases Inactive Condition [facility] NICOTINE DEPENDENCE Active Condition [facility] Contraceptives Active Condition [facility] ASSESSMENT OF PATIENT CONDITION WORK-RELATED Active Condition [facility] PLANTAR FASCIITIS Active Condition [facility] EYESTRAIN Inactive Condition [facility] Need For Vaccination Human Papilloma Virus Inactive Condition [facility] visit for: screening exam Active Condition [facility] VAGINITIS Inactive Condition [facility] Other Physical Therapy Active Condition [facility] TENDONITIS POSTERIOR TIBIAL RIGHT Inactive Condition [facility] SINUSITIS Active Condition [facility] SINUSITIS ACUTE Inactive Condition Do[facility] UPPER RESPIRATORY INFECTION Inactive Condition [facility] ACUTE TONSILLITIS Inactive Condition [facility] DIETARY CALCIUM DEFICIENCY Active Condition [facility] Gynecologic Services Prescription Of Contraceptive Agents Inactive Condition [facility] PREMENSTRUAL SYNDROMES Active Condition [facility] SUPERFICIAL INJURY - BLISTER OF ANKLE Inactive Condition [facility] visit for: screening exam for malignant neoplasm cervix Active Condition [facility] ROUTINE GYNECOLOGICAL EXAM WITH CERVICAL PAP SMEAR Inactive Condition [facility] Preventive Medicine New Patient Evaluation Adult 18-39 Active Condition [facility] Patient Education Active Condition [facility] Gynecologic Services Contraceptive General Counseling Active Condition [facility] Dietary Counseling Pertaining To Osteoporosis Active Condition [facility] Anticipatory Guidance: Unsafe Sexual Practices Inactive Condition [facility] visit for: services physical Active Condition [facility] visit for: ears / hearing exam Active Condition [facility] Diagnosis: ICD-10-CM F41.9 Anxiety disorder, unspecified Active Diagnosis [facility] Diagnosis: ICD-10-CM I26.99 Other pulmonary embolism without acute cor pulmonale Active Diagnosis [facility] Ivan LEBLANC [facility] Diagnosis: ICD-10-CM Z51.81 Encounter for therapeutic drug level monitoring Active Diagnosis [facility] Boss [facility] Diagnosis: ICD-10-CM Z86.711 Personal history of pulmonary embolism Active Diagnosis [facility] DOREEN [facility] Diagnosis: ICD-10-CM Z39.2 Encounter for routine follow-up Active Diagnosis [facility] Diagnosis: ICD-10-CM Z71.89 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ed counseling Active Diagnosis [facility] Diagnosis: ICD-10-CM E88.819 Insulin resistance, unspecified Active Diagnosis [facility] Diagnosis: ICD-10-CM M54.50 Low back pain, unspecified Active Diagnosis [facility] Diagnosis: ICD-10-CM Z33.1 state, incidental Active Diagnosis [facility] Diagnosis: ICD-10-CM 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m of uncertain behavior of skin Active Diagnosis [facility] Diagnosis: ICD-10-CM 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tic ovarian syndrome Active Diagnosis [facility] Diagnosis: ICD-10-CM E66.9 Obesity, unspecified Active Diagnosis [facility] Medications Combined list of outpatient medications from Department of Defense and [facility] facilities.Medications provided include 1) outpatient medications from the last 15 months, and 2) patient-reported medications. Medication Details Route Status Patient Instructions Prescription Expires Prescription Number Last Dispense Date Ordering Provider Order Date Order Qty Source ASPIRIN 81MG TAB,EC TAKE ONE TABLET BY MOUTH ONCE A DAY TAKE WITH FOOD. ORAL 07/21/2024 [id number] GILBERT MARKS 2024 120 [facility] ASPIRIN 81MG TAB,EC TAKE ONE TABLET BY MOUTH ONCE A DAY ORAL ACTIVE Karyn LOPEZ 2024 [facility] BUSPIRONE HCL 10MG TAB TAKE ONE TABLET BY MOUTH TWICE A DAY DO NOT TAKE WITH GRAPEFRU IT JUICE. ORAL ACTIVE 08/05/2025 [id number] 5 GILBERT MARKS SEPH M 2024 60 [facility] CHOLECALCIF GIULIANO 50MCG (2,000UNIT) TAB TAKE ONE TABLET BY MOUTH ONCE A DAY ORAL ACTIVE 03/24/2025 [id number] 5 GILBERT MARKS SEPH M 2024 100 [facility] DOCUSATE NA 100MG CAP TAKE ONE CAPSULE BY MOUTH TWICE DAILY NEEDED FOR CONSTIPA TION. HOLD FOR LOOSE STOOL/DI ARRHEA. ORAL ACTIVE 03/24/2025 [id number] 5 GILBERT MARKS M 2024 100 [facility] FERROUS SO4 325MG TAB TAKE ONE TABLET BY MOUTH ONCE A DAY . TAKE WITH BREAKFAS T ORAL ACTIVE 03/24/2025 [id number] 5 GILBERT MARKS SEPH M 2024 100 [facility] FUROSEMIDE 20MG TAB TAKE ONE-HALF TABLET BY MOUTH ONCE A DAY NEEDED FOR FLUID RETENTIO N. CALL PRESCRIB ER OFFICE BEFORE USING ORAL 05/21/2024 [id number] 5 RUTHIE BEEBE NDArian K 2024 10 [facility] HYDROCORTIS ONE 2.5% CREAM,TOP APPLY TO AFFECTED AREA(S) TWICE A DAY FOR EXTERNAL USE ONLY. APPLY SPARINGL Y. TOPICA L DISCONT INUED 06/30/2025 [id number] 5 GILBERT MARKS M 2024 30 [facility] HYDROCORTIS ONE 2.5% CREAM,TOP APPLY LIGHTLY TO AFFECTED AREA(S) ONCE A DAY NEEDED FOR ITCHING FOR EXTERNAL USE ONLY. APPLY SPARINGL Y. TOPICA L DISCONT INUED 04/15/2025 [id number] 5 Shashank ALVARENGA TANNER B 2024 30 [facility] LABETALOL HCL 200MG TAB TAKE ONE TABLET BY MOUTH TWICE A DAY ORAL ACTIVE DEPAULO,S NikkiZAZULEYKAE 2024 [facility] LIDOCAINE HCL 2% JELLY,UROJE T,10ML APPLY SPARINGL Y TO AFFECTED AREA(S) EVERY DAY NEEDED FOR TOPICAL ANESTHES IA FOR HEMORROI D PAIN TOPICA L 08/01/2024 [id number] 5 GILBERT MARKS 2024 5 [facility] METFORMIN HCL 500MG 24HR TAB,SA TAKE ONE TABLET BY MOUTH WITH DINNER TAKE WITH FOOD. AVOID ALCOHOL. DISCONTI NUE BEFORE GETTING XRAY DYE. ORAL DISCONT INUED BY PROVIDE R 05/21/2024 [id number] XANDER ALBERTO Y F 2023 90 [facility] MULTIVITAMI NS W/MINERALS, CAP/TAB TAKE 1 TABLET BY MOUTH ONCE A DAY FOR NUTRITIO N/DIETAR Y SUPPLEME NTATION TAKE WITH FOOD ORAL ACTIVE 11/27/2024 [id number] 5 JOHNS JACE 2023 100 [facility] NIFEDIPINE (EQV-CC) 30MG TAB,SA TAKE ONE TABLET BY MOUTH ONCE A DAY PREFERAB LE TO TAKE ON EMPTY STOMACH. SWALLOW WHOLE; DO NOT CRUSH OR CHEW. AVOID GRAPEFRU IT JUICE. ORAL ACTIVE 08/29/2024 [id number] 5 SHEILA FUNEZ B 2024 30 [facility] NURSING CREAM,TOP W/LANOLIN APPLY LIGHTLY TO AFFECTED AREA(S) ONCE A DAY NEEDED FOR SKIN PROTECTI ON TOPICA L ACTIVE 04/29/2025 [id number] 5 JOHN,S NikkiZACASS 2024 30 [facility] PROGESTERON E 200MG CAP INSERT ONE CAPSULE VAGINALL Y EVERY EVENING VAGINA L DISCONT INUED 03/24/2025 [id number] 5 GILBERT MARKS 2024 30 [facility] RIVAROXABAN 15MG TAB TAKE ONE TABLET BY MOUTH TWICE A DAY FOR 21 DAYS THEN USE 20 MG ONCE DAILY. TAKE WITH FOOD. USE THIS BOTTLE FIRST! ORAL DISCONT INUED 08/29/2024 [id number] 5 SHEILA FUNEZ 2024 42 [facility] RIVAROXABAN 20MG TAB TAKE ONE TABLET BY MOUTH ONCE A DAY FOR ANTICOAG ULATION TAKE WITH FOOD. ORAL ACTIVE 08/05/2025 [id number] 5 Karyn LOPEZ 2024 30 [facility] RIVAROXABAN 20MG TAB TAKE ONE TABLET BY MOUTH ONCE A DAY . TAKE WITH FOOD. START THIS DOSE AFTER COMPLETI NG THE 15MG TWICE DAILY PRESCRIP TION. USE THIS BOTTLE SECOND (AFTER 15MG) ORAL DISCONT INUED 08/29/2024 [id number] 5 SHEILA FUNEZ 2024 9 [facility] Allergies, Adverse Reactions, Alerts Combined list of allergies from 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 It does not include entries that were removed or entered in error. Substance Category Reaction Severity Reaction type Status Date Reported Comments Source DULOXETINE Propensity to adverse reactions to drug (finding) Nausea and vomiting, Diarrhea active 8 [facility] LATEX GLOVE Propensity to adverse reactions to drug (finding) Urticaria active 8 [facility] No Known Allergies Drug allergy (disorder) active 1 Krishna Don [facility] Immunizations Combined list of available immunizations from the 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 Immunization Series Date Given Administered By Site Reaction Lot Number CVX Code Drug Trademark Attorney Status Comments Source INFLUENZA, SPLIT VIRUS, TRIVALENT, PF 1 2023 140 complet ed HISTORICA L INFORMATI ON - FROM OTHER REGISTRY, [facility] TDAP 2023 DENISE DELAROSA A RIGHT DELTO ID [id number] 115 complet ed Completed Series, ADMINISTE RED AT MD, [facility] INFLUENZA, MDCK, QUADRIVALENT, PF 1 2022 171 complet ed HISTORICA L INFORMATI ON - FROM OTHER REGISTRY, RON TAYLOR FED [facility] INFLUENZA, UNSPECIFIED FORMULATION 2021 88 complet ed Completed Series, HISTORICA L INFORMATI ON - FROM PATIENT'S RECALL, [facility] COVID-19 (GERALD), VECTOR-NR, [id number], PF, 0.5 ML 1 2020 212 complet ed HISTORICA L INFORMATI ON - FROM OTHER REGISTRY, RON TAY[facility] FED [facility] INFLUENZA, INJECTABLE, QUADRIVALENT, PRESERVATIVE FREE 2017 150 complet ed [facility] Influenza, seasonal, injectable 0 2015 [id number] 1A 141 [employer] (SEQ) complet ed Influenza , seasonal, injectabl e DoD tuberculin skin test; purified protein derivative solution, intradermal 0 2014 Unknown, Provider [id number] Sanofi Pasteur (PMC) complet ed tuberculi n skin test; purified protein derivativ e solution, intraderm al DoD Influenza, seasonal, injectable 1 2014 Unknown, Provider [id number] 141 [employer] (CSL) complet ed Influenza , seasonal, injectabl e DoD tetanus toxoid, reduced diphtheria toxoid, and acellular pertu is vaccine, adsorbed 0 2014 Unknown, Provider [id number] Sanofi Pasteur ([facility]) complet ed tetanus toxoid, reduced diphtheri a toxoid, and acellular pertussis vaccine, adsorbed DoD influenza, injectable, quadrivalent, contains preservative 0 2013 UNK 158 Unknown (UNK) comple t ed influenza , injectabl e, quadrival ent, contains preservat horace DoD measles, mumps and rubella virus vaccine 0 2013 UNK 03 Unknown (UNK) comple t ed measles, mumps and rubella virus vaccine DoD influenza, live, intranasal, quadrivalent 0 2012 [id number] [employer] (MED) complet ed influenza , live, intranasa l, quadrival ent DoD typhoid Vi capsular polysaccharid e vaccine 1 2012 UNK 101 Unknown (UNK) comple t ed typhoid Vi capsular polysacch aride vaccine DoD Influenza, seasonal, injectable 0 2011 UNK 141 Unknown (UNK) comple t ed Influenza , seasonal, injectabl e DoD influenza virus vaccine, split virus (incl. purified surface antigen)-reti red CODE 0 2010 UNK 15 Unknown (UNK) comple t ed influenza virus vaccine, split virus (incl. purified surface antigen)- retired CODE DoD human papilloma virus vaccine, quadrivalent 1 2010 Unknown, Provider [id number] Merck (MSD) complet ed human papilloma virus vaccine, quadrival ent DoD measles, mumps and rubella virus vaccine 1 2010 Unknown, Provider [id number] Merck (MSD) complet ed measles, mumps and rubella virus vaccine DoD poliovirus vaccine, inactivated 1 2010 Unknown, Provider [id number] Sanofi Pasteur (PMC) complet ed polioviru s vaccine, inactivat ed DoD yellow fever vaccine 1 2010 Unknown, Provider [id number] [employer] ([facility]) complet ed yellow fever vaccine DoD typhoid Vi capsular polysaccharid e vaccine 1 2010 Unknown, Provider [id number] Sanofi Pasteur (PMC) complet ed typhoid Vi capsular polysacch aride vaccine DoD measles, mumps and rubella virus vaccine 1 2010 Unknown, Provider [id number] Merck (MSD) complet ed measles, mumps and rubella virus vaccine DoD influenza virus vaccine, whole virus 1 2010 Unknown, Provider [id number] [facility]) complet ed influenza virus vaccine, whole virus DoD meningococcal C conjugate vaccine 1 2010 Unknown, Provider [id number] Sanofi Pasteur ([facility]) complet ed meningoco ccal C conjugate vaccine DoD meningococcal ACWY vaccine, unspecified formulation 0 2010 UNKNOWN 108 Unknown (UNK) comple t ed meningoco ccal ACWY vaccine, unspecifi ed formulati on DoD meningococcal polysaccharid e (groups A, C, Y and W-135) diphtheria toxoid conjugate vaccine (MCV4P) 0 2010 UNK 114 (TRN) complet ed meningoco ccal polysacch aride (groups A, C, Y and W-135) diphtheri a toxoid conjugate vaccine (MCV4P) DoD tetanus toxoid, reduced diphtheria toxoid, and acellular pertu is vaccine, adsorbed 1 2010 Unknown, Provider [id number] 115 [employer] ([employer]PER) [facility] ed tetanus toxoid, reduced diphtheri a toxoid, and acellular pertussis vaccine, adsorbed DoD hepatitis B vaccine, pediatric or pediatric/ado lescent dosage 0 2010 08 () Not Given hepatitis B vaccine, pediatric or pediatric /adolesce nt dosage DoD Results Combined list of recent chemistry, hematology and other laboratory results from Department of Defense and Veterans Affairs, ranging from 15 months to all on record, depending upon the facility. Order Name Results Value Reference Range Date Interpretation Specimen Comments Source HCG QUANT CHORIOGONAD OTROPIN [UNITS/VOLU ME] IN SERUM OR PLASMA 572.00 m[IU]/ mL 0 - 5 11/25 H Specimen Type: SERUM Comment: The listed sex of this patient may not be a typical indication for this test. Therefore, reference ranges or interpretive criteria listed may not be valid. Clinical correlation suggested. Ordering Provider: SONU LOPEZ Report Released Date/Time: Nov 22, 2023 09:42 AM Reporting Lab: [facility] [address] [facility] [phone] Performing Lab: [facility] [address] [place] [id number] [facility] HYDROXYPRO GESTERONE (PB-STL) 17-HYDROXYP ROGESTERONE [MASS/VOLUM E] IN SERUM OR PLASMA 122 ng/dL 09/10 Specimen Type: SERUM Comment: Unable to flag abnormal result(s), please refer to reference range(s) below: Adult Female Reference Ranges for 17-Hydroxypr ogesterone: Pre-Menopaus al Mid Follicular: 23 - 102 ng/dL Pre-Menopaus al Surge: 67 - 349 ng/dL Pre-Menopaus al Mid Luteal: 139 - 431 ng/dL Postmenopaus al Phase: < or = 45 ng/dL Female David Stages: II - III Females: 18 - 220 ng/dL IV - V Females: 36 - 200 ng/dL Ordering Provider: MACK NICHOLS Report Released Date/Time: Aug 25, 2022 11:36 PM Reporting Lab: [address] [phone] Performing Lab: [address] [facility] TESTOSTERO NE, FREE PANEL TESTOSTERON E [MASS/VOLUM E] IN SERUM OR PLASMA 42 ng/dL 2 - 45 09/10 Specimen Type: SERUM Comment: For additional information, please refer to http://Automilea Tiendeo.Pixspan m/faq/ TotalTestost eroneLCMSMSF AQ165 (This link is being provided for informationa l/ educational purposes only.) This test was developed and its analytical performance characterist ics have been determined by [employer] [place], [place]. It has not been cleared or approved by the U.S. Food and Drug Administrati on. This assay has been validated pursuant to the CLIA regulations and is used for clinical purposes. Test Performed by [facility], [employer] [place], [address] [place] [address] Christian Hameed M.D., Ph.D., Director of [employer] , CLIA [id number] Ordering Provider: MACK NICHOLS Report Released Date/Time: Aug 25, 2022 11:36 PM Reporting Lab: [place] [address] Performing Lab: [address] [facility] TESTOSTERO NE, FREE PANEL ALBUMIN [MASS/VOLUM E] IN SERUM OR PLASMA 4.4 g/dL 3.6 - 5.1 09/10 Specimen Type: SERUM Comment: For additional information, please refer to http://Automilea Tiendeo.Pixspan m/faq/ TotalTestost eroneLCMSMSF AQ165 (This link is being provided for informationa l/ educational purposes only.) This test was developed and its analytical performance characterist ics have been determined by [employer] [place], [place]. It has not been cleared or approved by the U.S. Food and Drug Administrati on. This assay has been validated pursuant to the CLIA regulations and is used for clinical purposes. Test Performed by [facility] [employer] [place], [address] [place] [address] Christian Hameed M.D., Ph.D., Director of Laboratories , CLIA [id number] Ordering Provider: MACK NICHOLS Report Released Date/Time: Aug 25, 2022 11:36 PM Reporting Lab: [address] [phone] Performing Lab: [address] [facility] TESTOSTERO NE, FREE PANEL TESTOSTERON E FREE [MOLES/VOLU ME] IN SERUM OR PLASMA 6.4 pg/mL 0.2 - 5.0 09/10 H Specimen Type: SERUM Comment: For additional information, please refer to http://educa tion.skedge.me.co m/faq/ TotalTestost eroneLCMSMSF AQ165 (This link is being provided for informationa l/ educational purposes only.) This test was developed and its analytical performance characterist ics have been determined by [employer] [place], [place]. It has not been cleared or approved by the U.S. Food and Drug Administrati on. This assay has been validated pursuant to the CLIA regulations and is used for clinical purposes. Test Performed by [facility] [employer] [place], [address] [place] [address] Christian Hameed M.D., Ph.D., Director of Laboratories , CLIA [id number] Ordering Provider: MACK NICHOLS Report Released Date/Time: Aug 25, 2022 11:36 PM Reporting Lab: [address] [phone] Performing Lab: [address] [place] [facility] TESTOSTERO NE, FREE PANEL TESTOSTERON E.FREE+WEAK LY BOUND [MASS/VOLUM E] IN SERUM OR PLASMA 13.0 ng/dL 0.5 - 8.5 09/10 H Specimen Type: SERUM Comment: For additional information, please refer to http://Automilea Tiendeo.skedge.me.Aldagen m/faq/ TotalTestost eroneLCMSMSF AQ165 (This link is being provided for informationa l/ educational purposes only.) This test was developed and its analytical performance characterist ics have been determined by [employer] [place], [place]. It has not been cleared or approved by the U.S. Food and Drug Administrati on. This assay has been validated pursuant to the CLIA regulations and is used for clinical purposes. Test Performed by [facility], [employer] [facility], [address] [place] [address] Christian Hameed M.D., Ph.D., Director of Laboratories , CLIA [id number] Ordering Provider: MACK NICHOLS Report Released Date/Time: Aug 25, 2022 11:36 PM Reporting Lab: [facility] [address] [facility] [phone] Performing Lab: [facility] [address] [place] [address] [facility] TESTOSTERO NE, FREE PANEL SEX HORMONE BINDING GLOBULIN [MOLES/VOLU ME] IN SERUM OR PLASMA 23 nmol/L 17 - 124 09/10 Specimen Type: SERUM Comment: For additional information, please refer to http://Automilea Tiendeo.skedge.me.Aldagen m/faq/ TotalTestost eroneLCMSMSF AQ165 (This link is being provided for informationa l/ educational purposes only.) This test was developed and its analytical performance characterist ics have been determined by [employer] [place], [place]. It has not been cleared or approved by the U.S. Food and Drug Administrati on. This assay has been validated pursuant to the CLIA regulations and is used for clinical purposes. Test Performed by [facility], [facility], [address] [place], [place] Christian Hameed M.D., Ph.D., Director of Laboratories , CLIA [id number] Ordering Provider: MACK NICHOLS Report Released Date/Time: Aug 25, 2022 11:36 PM Reporting Lab: [facility] [address] [facility] [phone] Performing Lab: [facility] [address] [facility] PROLACTIN (STL-Eff 12/16) PROLACTIN [MASS/VOLUM E] IN SERUM OR PLASMA 18.50 ng/mL 3.5 - 19.4 09/10 Specimen Type: SERUM No comment entered. Ordering Provider: MACK NICHOLS Report Released Date/Time: Aug 25, 2022 11:36 PM Reporting Lab: [facility] [address] [facility] [address] Performing Lab: [facility] [address] [place] [phone] [facility] Encounters Combined list of: 1) Encounters from Department of Veterans Affairs facilities going backup to the last 18 months, not all VA inpatient encounters are included; 2) Encounters from the Department of Defense facilities going backup to 280 months. Location Location Details Encounter Type Encounter Number Reason For Visit Attending Provider ADM Date DC Date Status Disposition Source [facility](Au diology [facility] 1523) OUTPATIENT [id number] JHONATAN CARVAJAL 06/19 Released w/o Limitations [facility]( Audiolo gy [facility] 1523) [facility](Fe male Screening 1523) OUTPATIENT [id number] FANNY Reyna 06/20 Released w/o Limitations [facility]( Female Screeni ng 1523) [facility] Female) OUTPATIENT [id number] CECY Beck 06/20 Released w/o Limitations [facility](Op tometry [facility] 1523) OUTPATIENT [id number] recruit screen DANISH BERG 06/20 Released w/o Limitations [facility] [place]( Optomet ry [facility] 1523) [facility](We ekend Mil Sick Call 1007) OUTPATIENT [id number] cold sx ROSSI ZELDA K 07/08 Sick at Home/Quarter s [facility]( Weekend Mil Sick Call 1007) [facility]( ip 9 Sickcall [place]) OUTPATIENT [id number] F/U flu symptom s SHIREEN LARA 07/10 Released w/o Limitations [facility]( Ship 9 Sickcal l [place] ) [facility] [place](10 07 Phys Therapy) OUTPATIENT [id number] ship 9 sick call PATY WEINSTEIN 07/11 Released with Work/Duty Limitations [facility]( 1007 Phys Therapy ) [facility] [facility] [place](Po diatry Clinic [facility] 1007) OUTPATIENT [id number] right ankle SPENSER GARCIA 07/12 Released w/o Limitations [facility]( Podiatr y Clinic [facility] 1007) [facility] [place]( ip 9 Sickcall [place]ente) OUTPATIENT [id number] female issues ARTATES, JESSEE F 07/20 Released w/o Limitations [facility]( Ship 9 Sickcal l [place] ) [facility](Me d. Assessmen t/1523) OUTPATIENT [id number] 5-2 TABATHA HAWTHORNE 07/21 Released w/o Limitations [facility]( Med. Assessm ent/152 3) [facility](Me d. Assessmen t/1523) OUTPATIENT [id number] FANNY LOMBARDO 07/21 Released w/o Limitations [facility]( Med. Assessm ent/152 3) [facility] ) OUTPATIENT [id number] (resche d from Jun 10) REE @ 0835 BRIDGET WEST 06/19 Released w/o Limitations [facility](Elvin gley Optomet ry) [facility](Emergen cy Medicine NMCP) OUTPATIENT [id number] IWONA CAM 09/29 Released w/o Limitations [facility](Aicha rgency Medicin e NMCP) [facility](Hearing Cons [place]) OUTPATIENT [id number] MATILDA MANNING 11/13 Released w/o Limitations [facility](Hea ring Cons [place]) [facility](Ca litary Sick Call [facility] 237) OUTPATIENT [id number] ANNETTA Rivera 09/02 Released w/o Limitations [facility]( Militar y Sick Call [facility] 237) [facility](Mi litary Sick Call [facility] 237) OUTPATIENT [id number] Needs to switch control AFBBY MURILLO 12/03 Released w/o Limitations [facility]( Militar y Sick Call [facility] 237) [facility] [facility] Optometry ) OUTPATIENT [id number] APRIL HUDSON 03/31 Released w/o Limitations [facility](N aval Station Optomet ry) [facility](LUIS MIGUEL STA HC Program) OUTPATIENT [id number] Notes Entered by: KATELYN DONNELLY 09 Apr 2013 0828 ------- ------- ------- ------- -- annual JUAN C DNONELLY 04/09 Released w/o Limitations [facility](N AVSTA HC Program ) [facility]([place] [facility] Physical Therapy) OUTPATIENT [id number] CORNELIO Worley 01/21 Released w/o Limitations [facility](N aval Station Physica l Therapy ) [facility] Physical Therapy) OUTPATIENT [id number] RSOA ELENA SIDHU 01/22 Released w/o Limitations [facility](N aval Station Physica l Therapy ) [facility] Physical Therapy) OUTPATIENT [id number] DANISH COWART 01/27 Released w/o Limitations [facility](N aval Station Physica l Therapy ) [facility] Physical Therapy) OUTPATIENT [id number] JAMES ALVAREZ Bonnie 02/02 Released with Work/Duty Limitations [facility](N aval Station Physica l Therapy ) [facility] [facility] Physical Therapy) OUTPATIENT [id number] ABRAN BRICEÑO 02/10 Released w/o Limitations [facility](N aval Station Physica l Therapy ) [facility] [facility] Physical Therapy) OUTPATIENT [id number] f/u CORNELIO Worley 02/15 Released w/o Limitations [facility](N aval Station Physica l Therapy ) [facility](NM Flow Match [facility] Center) OUTPATIENT [id number] PNR SENA BERNABE 03/16 Released w/o Limitations [facility](S D Flow Match [facility] Operati ons Center) [facility](SD Flow Match [employer] [place]) OUTPATIENT [id number] Notes Entered by: JANICE CARPENTER 16 Mar 2014 0916 ------- ------- ------- ------- -- PNR TWIN FRANKLIN 03/16 Released w/o Limitations [facility](S D Flow Match [employer] [place]) [facility]([place] [facility] Physical Therapy) OUTPATIENT [id number] f/u knee/ba CORNELIO Nichols 03/18 Released w/o Limitations [facility](N aval Station Physica l Therapy ) [facility](NM Flow Match [facility] Operation s Center) TELE CONSULT [id number] Notes Entered by: GILBERT MEHTA 19 Mar 2014 1655 ------- ------- ------- ------- -- Low Blood Sugar ETELVINA CAMEJO 03/20 Released to Self Care [facility](S D Flow Match [employer] Operati ons Center) [facility](NT Flow Match [employer] 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) OUTPATIENT [id number] NOB LIZA 10/16/14 TIMO JACKSON 04/16 Released w/o Limitations [facility](N TC Flow Match 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 ) [facility](NI Fam Med PCMH Tm 2) OUTPATIENT [id number] Cold SX JULIAN HUFFMAN 04/27 Sick at Home/Quarter s [facility](N I Fam Med PCMH Tm 2) [facility](NT Flow Match [employer] 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) OUTPATIENT [id number] [email or web address] TIMO JACKSON 05/13 Released w/o Limitations [facility](N TC Flow Match [employer] 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 ) [facility](NI Fam Med PCMH Tm 2) TELE CONSULT [id number] Notes Entered by: NEW FROST 20 May 2014 0803 ------- ------- ------- ------- -- EDF Lower Back Pain, 18 Wks Preg 19 May 2014 JULIAN HUFFMAN 05/20 Referred for Appointment [facility](N I Fam Med PCMH Tm 2) [facility](NI Chiroprac tic Cln) OUTPATIENT [id number] FANNY Clifton 05/24 Released w/o Limitations [facility](N I Chiropr actic Cln) [facility](NI Chiroprac tic Cln) OUTPATIENT [id number] FANNY JO 06/08 Released w/o Limitations [facility](N I Chiropr actic Cln) [facility](NTC Flow Match [employer] 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) OUTPATIENT [id number] ks TIMO JACKSON 06/11 Released w/o Limitations [facility](N TC Flow Match [employer] 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 ) [facility](NI Chiroprac tic Cln) OUTPATIENT [id number] FANNY JO 06/22 Released w/o Limitations [facility](N I Chiropr actic Cln) [facility](NI Chiroprac tic Cln) OUTPATIENT [id number] FANNY JO Yoni 07/06 Released w/o Limitations [facility](N I Chiropr actic Cln) [facility] Flow Match Sof[employer] Cutter 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 DARYL Cardoso pt 07/26 Released w/o Limitations [facility](N TC Flow Match [employer] 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 ) [facility](NTC Flow Match [employer] 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) OUTPATIENT [id number] Notes Entered by: Neena TALAVERA 26 Jul 2014 1003 ------- ------- ------- ------- -- SYMONE Torrez 07/26 Released w/o Limitations [facility](N TC Flow Match [employer] 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 ) [facility](NTC Flow Match [employer] 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) OUTPATIENT [id number] Notes Entered by: ROSA ELENA GOODWIN 26 Jul 2014 1241 ------- ------- ------- ------- -- Tdap vaccine jbr ROSA ELENA GOODWIN 07/26 Released w/o Limitations [facility](N TC Flow Match [employer] 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 ) [facility](NI Chiroprac tic Cln) OUTPATIENT [id number] FANNY JO Yoni 08/10 Released w/o Limitations [facility](N I Chiropr actic Cln) [facility](NTC Flow Match [employer] 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) OUTPATIENT [id number] lizzie @31+wks copy chart DARYL LÓPEZ 08/20 Released w/o Limitations [facility](N TC Flow Match [employer] 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 ) [facility] Flow Match [employer] 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) TELE CONSULT [id number] Notes Entered by: RUDDY GARCIA 23 Aug 2014 191 ------- ------- ------- ------- -- Labs DARYL LÓPEZ 08/24 [facility](M CAS Flow Match [employer] 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 ) [facility](NTC Flow Match [employer] 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) TELE CONSULT [id number] Notes Entered by: CB MARSH 24 Aug 2014 0827 ------- ------- ------- ------- -- 32 wks c/o on going headach es and f/u from ED. Provied er is Ms. Gilbert hare. DARYL LÓPEZ 08/24 [facility](N TC Flow Match [employer] 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 ) [facility](NT Flow Match [employer] 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) OUTPATIENT [id number] LIZZIE 32+ DARYL LÓPEZ 08/27 Released w/o Limitations [facility](N TC Flow Match [employer] 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 ) [facility](NT Flow Match [employer] 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) TELE CONSULT [id number] Notes Entered by: Hayden GLOVER 07 Sep 2014 0909 ------- ------- ------- ------- -- Blood pressur e/gregorioio JAMILA Malone 09/07 Referred for Appointment [facility](N TC Flow Match [employer] 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 ) [facility](NT Flow Match [employer] 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) OUTPATIENT [id number] lizzie liza 015 36+5wks ZENA ESCAMILLA 09/23 Released w/o Limitations [facility](N TC Flow Match [employer] 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 ) [facility](NT Flow Match [employer] 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) OUTPATIENT [id number] lizzie liza 015 38+2wks ESCAMILLA, ZENA A 10/04 Released w/o Limitations [facility](N TC Flow Match [employer] 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 ) [facility] DIRECT TO [facility] FROM OTHER THAN ER OR [facility] [id number] SHARYN ENCISO Yoni 10/14 RETURNED TO DUTY [facility] Flow Match [employer] 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) OUTPATIENT [id number] lizzie liza 015 39+5wks DARYL LÓPEZ 10/14 Released w/o Limitations [facility](N TC Flow Match [employer] 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 ) [facility]( Fam Med PCMH Tm 2) TELE CONSULT [id number] Notes Entered by: NEW FROST 20 Oct 2014 0807 ------- ------- ------- ------- -- IPF 650 Normal Deliver y 18 Oct 2014 JULIAN HUFFMAN 10/20 Referred for Appointment [facility](N Fam Med [facility] Tm 2) [facility] Labor 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 JAMILA SMITH 10/20 Referred for Appointment [facility](N TC Labor Gang Supervisor 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 ) [facility] ER, DIRECT TO [facility] [id number] JAD LOU 10/23 RETURNED TO DUTY [facility] Flow Match [employer] 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) TELE CONSULT [id number] Notes Entered by: SIVA HERNANDEZ R 26 Oct 2014 1146 ------- ------- ------- ------- -- Patient had her baby on Oct. need a F/U appt. In a week for BP check SYMONE TALAVERA 10/26 Referred for Appointment [facility](N TC Flow Match [employer] 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 ) [facility] Med [facility] Tm 2) TELE CONSULT [id number] Notes Entered by: NEW FROST 27 Oct 2014 0739 ------- ------- ------- ------- -- IPF 642.41 Mild/No s Preecla mp-Deli v 25 Oct 2014 JULIAN HUFFMAN 10/27 Referred for Appointment [facility](N I Fam Med [facility] Tm 2) [facility](NM Flow Match [employer] FAU) OUTPATIENT [id number] 1week f/u bp ck LINDA SIEEGL 11/02 Released w/o Limitations [facility]( D Flow Match [employer] FAU) [facility](NM Flow Match [facility] [facility] Operation s Center) TELE CONSULT [id number] Notes Entered by: WHITLEY ACEVEDO 22 Nov 2014 1034 ------- ------- ------- ------- -- Irregul ar HR, high b/p, and PP bleedin g WHITLEY ACEVEDO 11/22 Referred- Emergency Department [facility] Flow Match [facility] Operati ons Center) [facility] Tm 2) TELE CONSULT [id number] Notes Entered by: NEW FROST 23 Nov 2014 0835 ------- ------- ------- ------- -- EDF Chest Pain and Vag Bleedin g 22 Nov 2014 JULIAN HUFFMAN 11/23 Referred for Appointment [facility](N I Fam Med [facility] Tm 2) [facility](NM Flow Match [employer] FAU) OUTPATIENT [id number] 6 WEEK PP/READ MITTED WITH SEVERE PREECLA MPSIA LINDA SIEGEL 12/01 Released w/o Limitations [facility](S D Flow Match [employer] FAU) [facility](NM Cardiolog y Cln) OUTPATIENT [id number] chest pain JULIO CÉSAR ESTEBAN 12/07 Released w/o Limitations [facility](S D Cardiol ogy Cln) [facility](SD Cardiolog y Echo) OUTPATIENT [id number] HYPERTE VI (SYSTEM IC) CHRISTAL CHEW 12/07 Released w/o Limitations [facility](S D Cardiol ogy Echo) [facility](SD Dermatolo gy) OUTPATIENT [id number] DANISH Guerrero 01/24 Released w/o Limitations [facility](S D Dermato logy) [facility](NI Imms PCMH Tm 2) OUTPATIENT [id number] Notes Entered by: GIOVANA AL 24 Jan 2015 1239 ------- ------- ------- ------- -- PPD, FLU SHOT ELY ZARATE 01/24 Released w/o Limitations [facility](N I Imms PCMH Tm 2) [facility] OTHER THAN [facility] OR [facility]-[id number] JUAN CARLOS KIRKPATRICK 02/03 RETURNED TO DUTY [facility](NI HC Program) OUTPATIENT [id number] Notes Entered by: SARAH BLANCO V 07 Feb 2015 0719 ------- ------- ------- ------- -- annual SHERLYN GANN V 02/07 Released w/o Limitations [facility](N I HC Program ) [facility]( Fam Med PCMH Tm 2) TELE CONSULT [id number] Notes Entered by: NEW FROST 07 Feb 2015 0854 ------- ------- ------- ------- -- IPF 000 Unknown 04 Feb 2015 JULIAN HUFFMAN 02/07 Referred for Appointment [facility](N I Fam Med PCMH Tm 2) [facility](NI Fam Med PCMH Tm 2) OUTPATIENT [id number] Notes Entered by: FRANK TONY 07 Feb 2015 1013 ------- ------- ------- ------- -- PHA PART 2 KENROY BRAY 02/07 Released w/o Limitations [facility](N I Fam Med PCMH Tm 2) [facility](SD General Surg) OUTPATIENT [id number] f/u MONIQUE CabreraBHANU Chaudhary 02/18 Released w/o Limitations [facility](S D General Surg) [facility](NI Optometry ) OUTPATIENT [id number] SHERLYN OLIVA 04/08 Released w/o Limitations [facility](N I Optomet ry) [facility](NI Occ Health) OUTPATIENT [id number] (PORT OPS) JUAN CARLOS COULTER 04/14 Released w/o Limitations [facility](N I Occ Health) [facility](NI Occ Health) OUTPATIENT [id number] -PART2 (PORT-O PS)CORNELIO ALMARAZ 05/02 Released w/o Limitations [facility](N I Occ Health) [facility](NI Fam Med PCMH Tm 2) OUTPATIENT [id number] referra l to podiatr y TABATHA FRANCES 05/16 Released w/o Limitations [facility](N I Fam Med PCMH Tm 2) [facility] Ortho Podiatry Service) OUTPATIENT [id number] Plantar fascial fibroma tosyolanda DO, VANE FLY 06/06 Released w/o Limitations [facility](N TC Ortho Podiatr y Service ) [facility](NI Optometry ) OUTPATIENT [id number] SHERLYN ERWIN 06/21 Released w/o Limitations [facility](N I Optomet ry) [facility](NI Fam Med PCMH Tm 2) OUTPATIENT [id number] Notes Entered by: SONIYA ANTONIO 05 Jul 2015 0859 ------- ------- ------- ------- -- NPV Other DIPAK GIL 07/04 Released w/o Limitations [facility](N I Fam Med PCMH Tm 2) [facility](NI Fam Med PCMH Tm 1) OUTPATIENT [id number] ER f/u for chest discomf ort, back pain and finger numbnes s CLAUDIA SANCHEZ P 07/21 Released w/o Limitations [facility](N I Fam Med PCMH Tm 1) [facility](NI Chiroprac tic Cln) OUTPATIENT [id number] Notes Entered by: HAILEY RG 22 Jul 2015 0837 ------- ------- ------- ------- -- walk in FANNY JO 07/21 Released w/o Limitations [facility](N I Chiropr actic Cln) [facility](NI Fam Med PCMH Tm 2) TELE CONSULT [id number] Notes Entered by: DIPAK GIL 22 Jul 2015 1134 ------- ------- ------- ------- -- EDF- CHEST PAIN, BACK PAIN -21 Jul 2015 0913 DIPAK GIL 07/21 Referred for Appointment [facility](N I Fam Med PCMH Tm 2) [facility](NI Fam Med PCMH Tm 2) OUTPATIENT [id number] f/u regardi ng MRI results BORIS CHILDS 09/22 Released w/o Limitations [facility](N I Fam Med PCMH Tm 2) [facility](NI Fam Med PCMH Tm 1) TELE CONSULT [id number] Notes Entered by: NINA RODRIGUEZ 30 Sep 2015 0917 ------- ------- ------- ------- -- PREVMED -NINA HANSEN 09/29 Referred for Appointment [facility](N I Fam Med PCMH Tm 1) [facility](NI Chiroprac tic Cln) OUTPATIENT [id number] Radicul opathy, cervica l region FANNY JO 10/02 Released w/o Limitations [facility](N I Chiropr actic Cln) [facility](NI Fam Med PCMH Tm 1) OUTPATIENT [id number] WWE/BORIS GREEN 10/03 Released w/o Limitations [facility](N I Fam Med PCMH Tm 1) [facility](NI Physical Therapy) OUTPATIENT [id number] Radicul opathy, cervica l region JULIA GUERRERO 10/04 Released w/o Limitations [facility](N I Physica l Therapy ) [facility](NI Fam Med PCMH Tm 1) OUTPATIENT [id number] nexplan on inserti on CHEPE, BORIS 10/09 Released w/o Limitations [facility](N I Fam Med PCMH Tm 1) [facility](NI Chiroprac tic Cln) OUTPATIENT [id number] FANNY JO 10/17 Released w/o Limitations [facility](N I Chiropr actic Cln) [facility](NI Physical Therapy) OUTPATIENT [id number] JEANCARLOS LIN 11/01 Released w/o Limitations [facility](N I Physica l Therapy ) [facility](NI Chiroprac tic Cln) OUTPATIENT [id number] F/u FANNY JO W 11/02 Released w/o Limitations [facility](N I Chiropr actic Cln) [facility] Ortho Podiatry Service) OUTPATIENT [id number] f/u b feet DO, VANE FLY 11/03 Released w/o Limitations [facility](N Ortho Podiatr y Service ) [facility](NI [facility] OUTPATIENT [id number] hip px x2 wks KENROY BRAY N 11/20 Released with Work/Duty Limitations [facility](N I Fam Med PCMH Tm 2) [facility](NI Fam Med [facility] Tm 2) OUTPATIENT [id number] Notes Entered by: KAYLA BIRD 23 Nov 2015 0710 ------- ------- ------- ------- -- alethea-GUILLE Chapin V 11/22 Sick at Home/Quarter s [facility](N I Fam Med PCMH Tm 2) [facility](NAB Physical Therapy) OUTPATIENT [id number] ALISA HEARN 11/27 Released w/o Limitations [facility](N AB Physica l Therapy ) [facility](NI Fam Med PCMH Tm 2) OUTPATIENT [id number] Parfq related concern s (per RN GG) KENROY BRAY 12/01 Released with Work/Duty Limitations [facility](N I Fam Med [facility](NAB Physical Therapy) OUTPATIENT [id number] CAROLYNE MA 12/07 Released with Work/Duty Limitations [facility](N AB Physica l Therapy ) [facility](NAB Physical Therapy) OUTPATIENT [id number] ANIL CAROLYNE L 12/12 Released with Work/Duty Limitations [facility](N AB Physica l Therapy ) [facility](NAB Physical Therapy) OUTPATIENT [id number] ALISA MELGAR 12/15 Released w/o Limitations [facility](N AB Physica l Therapy ) [facility](NAB Physical Therapy) OUTPATIENT [id number] CAROLYNE MA 12/21 Released with Work/Duty Limitations [facility](N AB Physica l Therapy ) [facility](NAB Physical Therapy) OUTPATIENT [id number] CAROLYNE MA 12/26 Released with Work/Duty Limitations [facility](N AB Physica l Therapy ) [facility](NAB Physical Therapy) OUTPATIENT [id number] LAMSEN, EL V 01/02 Released w/o Limitations [facility](N AB Physica l Therapy ) [facility](NAB Physical Therapy) OUTPATIENT [id number] CAROLYNE MA 01/04 Released with Work/Duty Limitations [facility](N AB Physica l Therapy ) [facility](NAB Physical Therapy) OUTPATIENT [id number] LAMSEN, EL V 01/08 Released w/o Limitations [facility](N AB Physica l Therapy ) [facility] OUTPATIENT [id number] Notes Entered by: JAXSON LIM 09 Jan 2016 1614 ------- ------- ------- ------- -- IWONA MORSE 01/08 Released w/o Limitations [facility](N I Imms PCMH Tm 2) [facility](NAB Physical Therapy) OUTPATIENT [id number] CAROLYNE MA 01/17 Released with Work/Duty Limitations [facility](N AB Physica l Therapy ) [facility](NAB Physical Therapy) OUTPATIENT [id number] ALISA HEARN 01/22 Released w/o Limitations [facility](N AB Physica l Therapy ) [facility](NAB Physical Therapy) OUTPATIENT [id number] CAROLYNE MA 01/30 Released with Work/Duty Limitations [facility](N AB Physica l Therapy ) [facility](NAB Physical Therapy) OUTPATIENT [id number] EL MEHTA V 02/08 Released w/o Limitations [facility](N AB Physica l Therapy ) [facility](NAB Physical Therapy) OUTPATIENT [id number] CAROLYNE MA 02/15 Released with Work/Duty Limitations [facility](N AB Physica l Therapy ) [facility](NI Fam Med PCMH Tm 2) OUTPATIENT [id number] worseni ng cold SLINDA Pratt 02/19 Sick at Home/Quarter s [facility](N I Fam Med PCMH Tm 2) [facility](NAB Physical Therapy) OUTPATIENT [id number] ALISA HEARN 02/21 Released w/o Limitations [facility](N AB Physica l Therapy ) [facility](NI HC Program) OUTPATIENT [id number] Notes Entered by: Hayden HANDLEY 28 Mar 2016 0924 ------- ------- ------- ------- -- CORNELIO DOUGHERTY 03/28 Released w/o Limitations [facility](N I HC Program ) [facility](NI Fam Med PCMH Tm 2) TELE CONSULT [id number] Notes Entered by: Efren TREJO 29 Mar 2016 0820 ------- ------- ------- ------- -- NPV Labs GUILLE XIAO V 03/29 Released to Self Care [facility](N I Fam Med PCMH Tm 2) [facility](NI Optometry ) OUTPATIENT [id number] PHYS SHERLYN ALEJANDRO Ramesh 03/29 Released w/o Limitations [facility](N I Optomet ry) [facility](NI Med Readiness Cln) OUTPATIENT [id number] Sep PE LUANNE LORENZO 04/11 Released w/o Limitations [facility](N I Med Readine ss Cln) [facility] MED NUTRITION INDIV SUBSEQ [id number] Diagnos is: ICD-10- CM E66.9 Obesity , unspeci DAYTON Gallo 04/02 [facility] Outpatient Encounter [id number] Diagnos is: ICD-10- CM 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 BORIS ALBERTO 05/20 [facility] MED NUTRITION INDIV SUBSEQ [id number] Diagnos is: ICD-10- CM E66.9 Obesity , unspeci DAYTON Gallo 05/28 [facility] OFFICE O/P EST LOW 20 MIN [id number] [id number] Diagnos is: ICD-10- CM E66.9 Obesity , unspeci ANDREW Agee 07/09 [facility] Outpatient Encounter [id number] 07/10 [facility] Outpatient Encounter [id number] MARINE DELAROSA 07/30 [facility] Outpatient Encounter [id number] 08/06 [facility] OFFICE O/P EST MOD 30 MIN [id number] Diagnos is: ICD-10- CM 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 DIONNE LOPEZ 08/06 [facility] Outpatient Encounter [id number] [id number] 08/19 [facility] Outpatient Encounter [id number] [id number] SKIP OLSON 11/01 [facility] Outpatient Encounter [id number] [id number] 11/04 [facility] Outpatient Encounter [id number] DIANN SAENZ ISTINE M 11/21 [facility] Outpatient Encounter [id number] [id number] SKIP OLSON 11/24 [facility] Outpatient Encounter [id number] [id number] SKIP OLSON 11/24 [facility] Outpatient Encounter [id number] [id number] YVONNE GÓMEZ 11/26 [facility] SESS[facility] [id number] [id number] Diagnos is: ICD-10- CM Z33.1 [place] ketty YVONNE GÓMEZ 11/26 [facility] Outpatient Encounter [id number] 11/26 [facility] Outpatient Encounter [id number] [id number] Mirela BROOKS 11/27 [facility] HC PRO PHONE CALL 5-10 MIN [id number] [id number] Diagnos is: ICD-10- CM Z33.1 [place] incidYVONNE Amaya 12/01 [facility] Outpatient Encounter [id number] [id number] 12/18 [facility] HC PRO PHONE CALL 21-30 MIN [id number] [id number] Diagnos is: ICD-10- CM Z33.1 [place] MONICA Gillette 12/31 [facility] Outpatient Encounter [id number] [id number] 01/16 [facility] Outpatient Encounter [id number] [id number] 01/27 [facility] Outpatient Encounter [id number] [id number] 5 02/02 [facility] Outpatient Encounter [id number] [id number] VESNA VICKERS 02/02 [facility] HC PRO PHONE CALL 11-20 MIN [id number] [id number] Diagnos is: ICD-10- CM Z33.1 [place], YVONNE Mancia 02/09 [facility] Outpatient Encounter [id number] [id number] 02/13 [facility] Outpatient Encounter [id number] [id number] 02/13 [facility] Outpatient Encounter [id number] [id number] 02/13 [facility] [id number] [id number] 02/17 [facility] Outpatient Encounter [id number] [id number] DARYL LONG 02/23 [facility] SYNCH AUDIO-ONLY EST LOW 20 [id number] [id number] Diagnos is: ICD-10- CM Z33.1 [place] ketty DIONNE LOPEZE 03/17 [facility] Outpatient Encounter [id number] [id number] 03/20 [facility] PH1 ASSMT&MGMT NQHP 5-10 [id number] [id number] Diagnos is: ICD-10- CM 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 YVONNE Boyle 03/23 [facility] Outpatient Encounter [id number] [id number] LETTY MCRAE 03/23 [facility] Outpatient Encounter [id number] [id number] URBANO MAYNARD 03/26 [facility] Encounter [id number] [id number] DIONNE LOPEZ 03/27 [facility] Outpatient Encounter [id number] [id number] URBANO MAYNARD 03/31 [facility] Outpatient Encounter [id number] [id number] 03/31 [facility] PH1 ASSMT&MGMT NQHP 5-10 [id number] [id number] Diagnos is: ICD-10- CM 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 YVONNE Boyle 05/26 [facility] Outpatient Encounter [id number] 06/08 [facility] PSYTX W PT 30 MINUTES [id number] [id number] Diagnos is: ICD-10- CM F41.9 Anxiety disorde r, unspeci fied Shashank SANCHEZ ERA J 06/12 [facility] Outpatient Encounter [id number] Shashank SANCHEZ ERA J 06/12 [facility] OFF/OP CNSLTJ NEW/EST LOW 30 [id number] [id number] Diagnos is: ICD-10- CM M54.50 Low back pain, unspeci fied GERMAINE,ROS S 06/15 [facility] PH1 ASSMT&MGMT NQHP 5-10 [id number] [id number] Diagnos is: ICD-10- CM 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 YVONNE Boyle 06/17 [facility] Outpatient Encounter [id number] LETTY MCRAE 06/17 [facility] NQHP OL DIG ASSMT&MGMT 5-10 [id number] [id number] Diagnos is: ICD-10- CM E88.819 Insulin resista nce, unspeci fied SCHMEES,NA NCY JENNY 06/17 [facility] PSYTX W PT 30 MINUTES [id number] [id number] Diagnos is: ICD-10- CM F41.9 Anxiety disorde r, unspeci Shashank Vega J 06/24 [facility] PH1 ASSMT&MGMT NQHP 5-10 [id number] [id number] Diagnos is: ICD-10- CM 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 YVONNE Boyle 06/24 [facility] Outpatient Encounter [id number] [id number] LETTY MCRAE 06/29 [facility] Outpatient Encounter [id number] [id number] 06/29 [facility] Outpatient Encounter [id number] [id number] 06/30 [facility] Outpatient Encounter [id number] [id number] Mirela BROOKS 06/30 [facility] PSYTX W PT 30 MINUTES [id number] [id number] Diagnos is: ICD-10- CM F41.9 Anxiety disorde r, unspeci Shashank Vega J 07/08 [facility] Outpatient Encounter [id number] [id number] 07/24 [facility] Outpatient Encounter [id number] [id number] LETTY MCRAE 07/27 [facility] N [facility] Outpatient Encounter [id number] [id number] 07/30 [facility] Outpatient Encounter [id number] [id number] 86Erci LETTY MCRAE 07/30 [facility] NQHP OL DIG ASSMT&MGMT 21+ [id number] [id number] Diagnos is: ICD-10- CM Z86.711 Persona l history of pulmona ry embolis m Arian SANDHU NNArian P 07/30 [facility] ASSMT/REAS SESSMENT [id number] [id number] Diagnos is: ICD-10- CM Z39.2 Encount er for routine postpar sabine follow- up YVONNE GÓMEZ 07/30 [facility] Outpatient Encounter [id number] [id number] DIONNE LOPEZ 07/31 [facility] NQ OL DIG ASSMT&MGMT 5-10 [id number] [id number] Diagnos is: ICD-10- CM Z86.711 Persona l history of pulmona ry embolis m ZOILA LARA 08/04 [facility] Outpatient Encounter [id number] [id number] 08/04 [facility] Outpatient Encounter [id number] [id number] SKIP OLSON 08/04 [facility] Outpatient Encounter [id number] [id number] FLINT-YOJERRY Johnson 08/04 [facility] N [facility] MTMS BY PHARM EST 15 MIN [id number] [id number] Diagnos is: ICD-10- CM Z51.81 Encount er for therape utic drug level monitor ZOILA Acosta 08/05 [facility] N [facility] Outpatient Encounter [id number] [id number] DIONNE LOPEZ 08/05 [facility] SYNCH AUDIO-ONLY EST MOD 30 [id number] [id number] Diagnos is: ICD-10- CM 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 Procedure Procedure Type Code Date Perfomer Comments [facility] e SCREENING TEST, PURE TONE, AIR ONLY 2011 [facility] COMPRESSION BANDAGE, ROLL 2011 [facility] FITTING OF SPECTACLES, EXCEPT FOR APHAKIA; MONOFOCAL 2011 [facility] VIS FUNCT SCREEN,AUTOMAT/SEMI- AUTOMAT BILAT QUANT DETERM VISUAL ACUITY,OCULAR ALIGN,COLOR VISION,PSEUDOISOCHRO MAT PLATES,& FIELD VIS (MAY INC ALL/SOME SCRN DETERM FOR CONTRAST SENSITIV,VIS UND GLARE) 2016 [facility] AUDIOMETRIC TESTING OF GROUPS 2016 [facility] PHYSICAL THERAPY RE-EVALUATION 2015 [facility] THERAPEUTIC PROCEDURE, 1 OR MORE AREAS, EACH 15 MINUTES; THERAPEUTIC EXERCISES TO DEVELOP STRENGTH AND ENDURANCE, RANGE OF MOTION AND FLEXIBILITY 2015 [facility] APPLICATION OF A MODALITY TO 1 OR MORE AREAS; HOT OR COLD PACKS 2015 [facility] THERAPEUTIC PROCEDURE, 1 OR MORE AREAS, EACH 15 MINUTES; THERAPEUTIC EXERCISES TO DEVELOP STRENGTH AND ENDURANCE, RANGE OF MOTION AND FLEXIBILITY 2015 [facility] PHYSICAL THERAPY RE-EVALUATION 2015 [facility] THERAPEUTIC PROCEDURE, 1 OR MORE AREAS, EACH 15 MINUTES; THERAPEUTIC EXERCISES TO DEVELOP STRENGTH AND ENDURANCE, RANGE OF MOTION AND FLEXIBILITY 2015 [facility] IMMUNIZATION ADMINISTRATION (INCLUDES PERCUTANEOUS, INTRADERMAL, SUBCUTANEOUS, OR INTRAMUSCULAR INJECTIONS); 1 VACCINE (SINGLE OR COMBINATION VACCINE/TOXOID) 2015 [facility] APPLICATION OF A MODALITY TO 1 OR MORE AREAS; ELECTRICAL STIMULATION (UNATTENDED) 2015 [facility] THERAPEUTIC PROCEDURE, 1 OR MORE AREAS, EACH 15 MINUTES; THERAPEUTIC EXERCISES TO DEVELOP STRENGTH AND ENDURANCE, RANGE OF MOTION AND FLEXIBILITY 2015 [facility] APPLICATION OF A MODALITY TO 1 OR MORE AREAS; ELECTRICAL STIMULATION (MANUAL), EACH 15 MINUTES 2015 [facility] THERAPEUTIC PROCEDURE, 1 OR MORE AREAS, EACH 15 MINUTES; THERAPEUTIC EXERCISES TO DEVELOP STRENGTH AND ENDURANCE, RANGE OF MOTION AND FLEXIBILITY 2015 [facility] APPLICATION OF A MODALITY TO 1 OR MORE AREAS; HOT OR COLD PACKS 2015 [facility] PHYSICAL THERAPY EVALUATION 2015 [facility] THERAPEUTIC PROCEDURE, 1 OR MORE AREAS, EACH 15 MINUTES; THERAPEUTIC EXERCISES TO DEVELOP STRENGTH AND ENDURANCE, RANGE OF MOTION AND FLEXIBILITY 2015 [facility] THERAPEUTIC PROCEDURE, 1 OR MORE AREAS, EACH 15 MINUTES; THERAPEUTIC EXERCISES TO DEVELOP STRENGTH AND ENDURANCE, RANGE OF MOTION AND FLEXIBILITY 2015 [facility] THERAPEUTIC PROCEDURE, 1 OR MORE AREAS, EACH 15 MINUTES; THERAPEUTIC EXERCISES TO DEVELOP STRENGTH AND ENDURANCE, RANGE OF MOTION AND FLEXIBILITY 2015 [facility] CHIROPRACTIC MANIPULATIVE TREATMENT (CMT); SPINAL, 1-2 REGIONS 2015 [facility] THERAPEUTIC PROCEDURE,1 OR MORE AREAS,EACH 15 MINUTES;NEUROMUSCULA R REEDUCATION OF MOVEMENT,BALANCE,OUTDOOR PURSUITS INSTRUCTOR RDINATION,KINESTHETI C SENSE,POSTURE,AND/OR PROPRIOCEPTION FOR SITTING AND/OR STANDING ACTIVITIES 2015 [facility] CHIROPRACTIC MANIPULATIVE TREATMENT (CMT); SPINAL, 3-4 REGIONS 2015 [facility] INSERTION, DRUG-DELIVERY IMPLANT (IE, BIORESORBABLE, BIODEGRADABLE, NON-BIODEGRADABLE) 2015 [facility] THERAPEUTIC PROCEDURE, 1 OR MORE AREAS, EACH 15 MINUTES; THERAPEUTIC EXERCISES TO DEVELOP STRENGTH AND ENDURANCE, RANGE OF MOTION AND FLEXIBILITY 2015 [facility] THERAPEUTIC PROCEDURE, 1 OR MORE AREAS, EACH 15 MINUTES; THERAPEUTIC EXERCISES TO DEVELOP STRENGTH AND ENDURANCE, RANGE OF MOTION AND FLEXIBILITY 2015 [facility] EDUCATIONAL SUPPLIES, SUCH BOOKS, TAPES, AND PAMPHLETS, FOR THE PATIENT'S EDUCATION AT COST TO PHYSICIAN OR OTHER QUALIFIED HEALTH BSS SOLUTION ARCHITECT 2015 [facility] ELECTROCARDIOGRAM, ROUTINE ECG WITH AT LEAST 12 LEADS; WITH INTERPRETATION AND REPORT 2015 [facility] FITTING OF SPECTACLES, EXCEPT FOR APHAKIA; MONOFOCAL 2015 [facility] VIS FUNCT SCREEN,AUTOMAT/SEMI- AUTOMAT BILAT QUANT DETERM VISUAL ACUITY,OCULAR ALIGN,COLOR VISION,PSEUDOISOCHRO MAT PLATES,& FIELD VIS (MAY INC ALL/SOME SCRN DETERM FOR CONTRAST SENSITIV,VIS UND GLARE) 2015 [facility] VIS FUNCT SCREEN,AUTOMAT/SEMI- AUTOMAT BILAT QUANT DETERM VISUAL ACUITY,OCULAR ALIGN,COLOR VISION,PSEUDOISOCHRO MAT PLATES,& FIELD VIS (MAY INC ALL/SOME SCRN DETERM FOR CONTRAST SENSITIV,VIS UND GLARE) 2015 [facility] AUDIOMETRIC TESTING OF GROUPS 2014 [facility] RESECTION OF APPENDIX, PERCUTANEOUS ENDOSCOPIC APPROACH 2014 [facility] LAPAROSCOPY, SURGICAL, APPENDECTOMY 2014 [facility] IMMUNIZATION ADMINISTRATION (INCLUDES PERCUTANEOUS, INTRADERMAL, SUBCUTANEOUS, OR INTRAMUSCULAR INJECTIONS); 1 VACCINE (SINGLE OR COMBINATION VACCINE/TOXOID) 2014 [facility] BIOPSY OF SKIN, SUBCUTANEOUS TISSUE AND/OR MUCOUS MEMBRANE (INCLUDING SIMPLE CLOSURE),UNLESS OTHERWISE LISTED (SEPARATE PROCEDURE); EACH SEPARATE/ADD LESION (LIST SEP IN ADD TO CODE FOR PRIMARY PROC) 2014 [facility] ECHOCARDIOGRAPHY,TRA NSTHORACIC,REAL-TIME W IMAGE DOCUMENTATION (2D),INCLUDES M-MODE RECORDING,WHEN PERFORMED,COMPLETE,W ITH SPECTRAL DOPPLER ECHOCARDIOGRAPHY,AND W COLOR FLOW DOPPLER ECHOCARDIOGRAPHY 2014 [facility] ELECTROCARDIOGRAM, ROUTINE ECG WITH AT LEAST 12 LEADS; WITH INTERPRETATION AND REPORT 2014 [facility] ULTRASOUND, CHEST (INCLUDES MEDIASTINUM), REAL TIME WITH IMAGE DOCUMENTATION 2014 [facility] INTRAVENOUS INFUSION, HYDRATION; EACH ADDITIONAL HOUR (LIST SEPARATELY IN ADDITION TO CODE FOR PRIMARY PROCEDURE) 2014 [facility] INJECTION OF RH IMMUNE GLOBULIN 2014 [facility] TRANSFUSION OF PACKED CELLS 2014 [facility] LOW CERVICAL SECTION 2014 [facility] OTHER ARTIFICIAL RUPTURE OF MEMBRANES 2014 [facility] MEDICAL INDUCTION OF LABOR 2014 [facility] POSTOPERATIVE FOLLOW-UP VISIT, NORMALLY INCLUDED IN THE SURGICAL PACKAGE, INDICATE THAT EVALUATION & MANAGEMENT SERVICE WAS PERFORMED DURING A POSTOPERATIVE PERIOD REASON RELATED ORIGINAL PROCEDURE 2014 [facility] POSTOPERATIVE FOLLOW-UP VISIT, NORMALLY INCLUDED IN THE SURGICAL PACKAGE, INDICATE THAT EVALUATION & MANAGEMENT SERVICE WAS PERFORMED DURING A POSTOPERATIVE PERIOD REASON RELATED ORIGINAL PROCEDURE 2014 [facility] DELIVERY ONLY 2014 [facility] SUBSEQ CARE VISIT () [EXCLS:PATIENTS WHO ARE SEEN FOR A CONDITION UNREL TO / CARE (EG,AN UP RESPIR INFECT;PATIENTS SEEN FOR CONSULTATION ONLY,NOT FOR CONT CARE)] 2014 [facility] SUBSEQ CARE VISIT () [EXCLS:PATIENTS WHO ARE SEEN FOR A CONDITION UNREL TO / CARE (EG,AN UP RESPIR INFECT;PATIENTS SEEN FOR CONSULTATION ONLY,NOT FOR CONT CARE)] 2014 [facility] NON-STRESS TEST 2014 [facility] SUBSEQ CARE VISIT () [EXCLS:PATIENTS WHO ARE SEEN FOR A CONDITION UNREL TO / CARE (EG,AN UP RESPIR INFECT;PATIENTS SEEN FOR CONSULTATION ONLY,NOT FOR CONT CARE)] 2014 [facility] SUBSEQ CARE VISIT () [EXCLS:PATIENTS WHO ARE SEEN FOR A CONDITION UNREL TO / CARE (EG,AN UP RESPIR INFECT;PATIENTS SEEN FOR CONSULTATION ONLY,NOT FOR CONT CARE)] 2014 [facility] NON-STRESS TEST 2014 [facility] SUBSEQ CARE VISIT () [EXCLS:PATIENTS WHO ARE SEEN FOR A CONDITION UNREL TO / CARE (EG,AN UP RESPIR INFECT;PATIENTS SEEN FOR CONSULTATION ONLY,NOT FOR CONT CARE)] 2014 [facility] CHIROPRACTIC MANIPULATIVE TREATMENT (CMT); SPINAL, 1-2 REGIONS 2014 [facility] IMMUNIZATION ADMINISTRATION (INCLUDES PERCUTANEOUS, INTRADERMAL, SUBCUTANEOUS, OR INTRAMUSCULAR INJECTIONS); 1 VACCINE (SINGLE OR COMBINATION VACCINE/TOXOID) 2014 [facility] RHO(D) IMMUNE GLOBULIN (RHIG), HUMAN, FULL-DOSE, FOR INTRAMUSCULAR USE 2014 [facility] CHIROPRACTIC MANIPULATIVE TREATMENT (CMT); SPINAL, 1-2 REGIONS 2014 [facility] CHIROPRACTIC MANIPULATIVE TREATMENT (CMT); SPINAL, 1-2 REGIONS 2014 [facility] NON-STRESS TEST 2014 [facility] CHIROPRACTIC MANIPULATIVE TREATMENT (CMT); SPINAL, 1-2 REGIONS 2014 [facility] SUBSEQ CARE VISIT () [EXCLS:PATIENTS WHO ARE SEEN FOR A CONDITION UNREL TO / CARE (EG,AN UP RESPIR INFECT;PATIENTS SEEN FOR CONSULTATION ONLY,NOT FOR CONT CARE)] 2014 [facility] CHIROPRACTIC MANIPULATIVE TREATMENT (CMT); SPINAL, 1-2 REGIONS 2014 [facility] EDUCATIONAL SUPPLIES, SUCH BOOKS, TAPES, AND PAMPHLETS, FOR THE PATIENT'S EDUCATION AT COST TO PHYSICIAN OR OTHER QUALIFIED HEALTH BSS SOLUTION ARCHITECT 2014 [facility] SUBSEQ CARE VISIT () [EXCLS:PATIENTS WHO ARE SEEN FOR A CONDITION UNREL TO / CARE (EG,AN UP RESPIR INFECT;PATIENTS SEEN FOR CONSULTATION ONLY,NOT FOR CONT CARE)] 2014 [facility] ULTRASOUND, UTERUS, REAL TIME WITH IMAGE DOCUMENTATION, LIMITED (EG, HEART BEAT, PLACENTAL LOCATION, POSITION AND/OR QUALITATIVE AMNIOTIC FLUID VOLUME), 1 OR MORE FETUSES 2014 [facility] PHYSICAL THERAPY RE-EVALUATION 2014 [facility] ULTRASOUND, UTERUS, REAL TIME WITH IMAGE DOCUMENTATION, AND MATERNAL EVALUATION, FIRST TRIMESTER (< 14 WEEKS 0 DAYS), TRANSABDOMINAL APPROACH; SINGLE OR FIRST GESTATION 2014 [facility] SELF-CARE/HOME MANAGMENT TRAIN (EG,ACT OF DAILY LIVING (ADL) &COMPENSAT TRAIN,MEAL PREPARATION,SAFETY PROCS,AND INSTRUCT IN USE OF ASST TECHNOLOGY DEV/ADPT EQUIP) DIR ONE-ON-ONE CONT,EA 15 MINUTES 2013 [facility] THERAPEUTIC PROCEDURE, 1 OR MORE AREAS, EACH 15 MINUTES; THERAPEUTIC EXERCISES TO DEVELOP STRENGTH AND ENDURANCE, RANGE OF MOTION AND FLEXIBILITY 2013 [facility] THERAPEUTIC ACTIVITIES, DIRECT (ONE-ON-ONE) PATIENT CONTACT (USE OF DYNAMIC ACTIVITIES TO IMPROVE FUNCTIONAL PERFORMANCE), EACH 15 MINUTES 2013 [facility] APPLICATION OF A MODALITY TO 1 OR MORE AREAS; HOT OR COLD PACKS 2013 [facility] THERAPEUTIC ACTIVITIES, DIRECT (ONE-ON-ONE) PATIENT CONTACT (USE OF DYNAMIC ACTIVITIES TO IMPROVE FUNCTIONAL PERFORMANCE), EACH 15 MINUTES 2013 [facility] SELF-CARE/HOME MANAGMENT TRAIN (EG,ACT OF DAILY LIVING (ADL) &COMPENSAT TRAIN,MEAL PREPARATION,SAFETY PROCS,AND INSTRUCT IN USE OF ASST TECHNOLOGY DEV/ADPT EQUIP) DIR ONE-ON-ONE CONT,EA 15 MINUTES 2013 [facility] AUDIOMETRIC TESTING OF GROUPS 2013 [facility] FITTING OF SPECTACLES, EXCEPT FOR APHAKIA; MONOFOCAL 2013 [facility] IMMUNIZATION ADMINISTRATION BY INTRANASAL OR ORAL ROUTE; 1 VACCINE (SINGLE OR COMBINATION VACCINE/TOXOID) 2012 [facility] TOBACCO USE CESSATION INTERVENTION, COUNSELING (COPD, CAP, CAD, ASTHMA) (DM) (PV) 2012 [facility] THERAPEUTIC, PROPHYLACTIC, OR DIAGNOSTIC INJECTION (SPECIFY SUBSTANCE OR DRUG); SUBCUTANEOUS OR INTRAMUSCULAR 2010 [facility] SKIN TEST; TUBERCULOSIS, INTRADERMAL 2010 [facility] THERAPEUTIC PROCEDURE, 1 OR MORE AREAS, EACH 15 MINUTES; THERAPEUTIC EXERCISES TO DEVELOP STRENGTH AND ENDURANCE, RANGE OF MOTION AND FLEXIBILITY 2010 [facility] SCREENING PAPANICOLAOU SMEAR; OBTAINING, PREPARING AND CONVEYANCE OF CERVICAL OR VAGINAL SMEAR TO LABORATORY 2010 [facility] IMMUNIZATION ADMINISTRATION (INCLUDES PERCUTANEOUS, INTRADERMAL, SUBCUTANEOUS, OR INTRAMUSCULAR INJECTIONS); 1 VACCINE (SINGLE OR COMBINATION VACCINE/TOXOID) 2010 [facility] OPHTHALMOLOGICAL SERVICES: MEDICAL EXAMINATION AND EVALUATION WITH INITIATION OF DIAGNOSTIC AND TREATMENT PROGRAM; COMPREHENSIVE, NEW PATIENT, 1 OR MORE VISITS 2010 [facility] AUDIOMETRIC TESTING OF GROUPS 2010 [facility] SKIN TEST; TUBERCULOSIS, INTRADERMAL 2010 [facility] Audiometry Group Testing Audiometry Group Testing 50436 2013 JUAN C DONNELLY [facility] Determination Of Refractive State Determination Of Refractive State [id number] 2013 CHRISTAL MARCUM [facility] Spectacles Services Fitting Monofocals (Not For Aphakia) [facility] Fitting Monofocals (Not For Aphakia) 17156 2013 CHRISTAL MARCUM [facility] Ophthalmological New Patient Start Comprehensive Care Ophthalmological New Patient Start Comprehensive Care [id number] 2013 CHRISTAL MARCUM [facility] Intervention And Counseling On Ce ation Of Tobacco Use Intervention And Counseling On Cessation Of Tobacco Use 4000F 2012 ANNETTA FROST [facility] current smoker current smoker 1034F 2012 ANNETTA FROST [facility] Audiometry Group Testing Audiometry Group Testing 56559 2011 MATILDA MANNING Audiogram (Screening) Audiogram (Screening) 17388 2011 MATILDA MANNING Ophthalmological New Patient Start Comprehensive Care Ophthalmological New Patient Start Comprehensive Care [id number] 2011 [facility] Determination Of Refractive State Determination Of Refractive State 72096 2011 [facility] Fitting Monofocals (Not For Aphakia) [facility] Fitting Monofocals (Not For Aphakia) [address] Supervised Injection Intramuscular Supervised Injection Intramuscular 36481 2010 LIOR HERNANDEZ Physical Therapy: ___ Se ion Segments, 15 Minutes Each Physical Therapy: ___ Session Segments, 15 Minutes Each [id number] 2010 PATY WEINSTEIN Lift, elevation, heel, per inch 2010 SPENSER GARCIA Screening papanicolaou smear; obtaining, preparing and conveyance of cervical or vaginal smear to laboratory 2010 FANNY LOMBARDO Ophthalmological New Patient Start Comprehensive Care Ophthalmological New Patient Start [facility] [id number] 2010 DANISH BERG Threshold Audiogram (Pure Tone) Threshold Audiogram (Pure Tone) 42817 2010 JHONATAN CARVAJAL Audiometry Group Testing Audiometry Group Testing [id number] 2010 JHONATAN CARVAJAL Visual Function Screening Visual Function Screening 65050 2016 SLIM POWELL Audiometry Group Testing Audiometry Group Testing 25263 2016 CORNELIO HANDLEY Physical Medicine Physical Therapy Re-Evaluation Physical Medicine Physical Therapy Re-Evaluation 17570 2015 ALISA FERRARA Modalities Heat Hot Packs Modalities Heat Hot Packs 12800 2015 CAROLYNE MA Mobilization Soft Ti ue Mobilization Soft Tissue 71022 2015 CAROLYNE MA Physical Therapy Mobilization Joint Physical Therapy Mobilization Joint 32656 2015 CAROLYNE MA Exercises A isted Exercises For ROM Exercises Assisted Exercises For ROM 43164 2015 CAROLYNE MA DoD Modalities Heat Hot Packs Modalities Heat Hot Packs 37400 2015 LAMSEN, EL V DoD Physical Therapy Mobilization Joint Physical Therapy Mobilization Joint 28023 2015 LAMSEN, EL V DoD Exercises A isted Exercises For ROM Exercises Assisted Exercises For ROM 24495 2015 LAMSEN, EL V DoD Physical Therapy: ___ Se ion Segments, 15 Minutes Each Physical Therapy: ___ Session Segments, 15 Minutes Each 00142 2015 LAMSEN, EL V DoD Mobilization Soft Ti ue Mobilization Soft Tissue 78017 2015 CAROLYNE MA Modalities Heat Hot Packs Modalities Heat Hot Packs 00391 2015 CAROLYNE MA Exercises A isted Exercises For ROM Exercises Assisted Exercises For ROM 43011 2015 CAROLYNE MA Physical Medicine Physical Therapy Re-Evaluation Physical Medicine Physical Therapy Re-Evaluation 74223 2015 ALISA FERRARA Exercises A isted Exercises For ROM Exercises Assisted Exercises For ROM 32015 2015 CAROLYNE MA Modalities Electrical Stimulation Unattended Modalities Electrical Stimulation Unattended 92792 2015 CAROLYNE MA Modalities Heat Hot Packs Modalities Heat Hot Packs 87249 2015 CAROLYNE MA Immunization Administration One Vaccine Immunization Administration One Vaccine 02689 2015 MASOUD GARCIA Influenza Split (Injectable); Series #: 1; .5 mL; IM; Unkown Arm; Mfg: [employer] Lot: [id number]; Exp. [id number]. DoD Modalities Electrical Stimulation Unattended Modalities Electrical Stimulation Unattended 85911 2015 LAMSEN, EL V DoD Modalities Heat Hot Packs Modalities Heat Hot Packs 62004 2015 LAMSEN, EL V DoD Exercises A isted Exercises For ROM Exercises Assisted Exercises For ROM 05820 2015 LAMSEN, EL V DoD Physical Therapy: ___ Se ion Segments, 15 Minutes Each Physical Therapy: ___ Session Segments, 15 Minutes Each 03607 2015 LAMSEN, EL V DoD Exercises A isted Exercises For ROM Exercises Assisted Exercises For ROM 34757 2015 CAROLYNE MA Modalities Electrical Stimulation Unattended Modalities Electrical Stimulation Unattended 71129 2015 CAROLYNE MA DoD Modalities Heat Hot Packs Modalities Heat Hot Packs 90270 2015 CAROLYNE MA Modalities Electrical Stimulation Modalities Electrical Stimulation 24800 2015 LAMSEN, EL V DoD Modalities Heat Hot Packs Modalities Heat Hot Packs 09027 2015 LAMSEN, EL V Alfredo Exercises A isted Exercises For ROM Exercises Assisted Exercises For ROM 85945 2015 LAMSEN, EL V Alfredo Physical Therapy: ___ Se ion Segments, 15 Minutes Each Physical Therapy: ___ Session Segments, 15 Minutes Each 54646 2015 LAMKARIN EL V Alfredo Exercises A isted Exercises For ROM Exercises Assisted Exercises For ROM 74055 2015 CAROLYNE MA Modalities Heat Hot Packs Modalities Heat Hot Packs 38111 2015 CAROLYNE MA Exercises A isted Exercises For ROM Exercises Assisted Exercises For ROM 66545 2015 CAROLYNE MA Physical Therapy: ___ Se ion Segments, 15 Minutes Each Physical Therapy: ___ Session Segments, 15 Minutes Each 82218 2015 ALISA FERRARA Therex x 15 minutes; those listed as Home Exercise Program DoD Physical Medicine Physical Therapy Evaluation Physical Medicine Physical Therapy Evaluation 73641 2015 ALISA FERRARA Exercises A isted Exercises For ROM Exercises Assisted [place]ercises [place] ROM 35531 2015 CAROLYNE MA Exercises A isted Exercises For ROM Exercises Assisted Exercises For ROM 74860 2015 CAROLYNE MA Physical Therapy: ___ Se ion Segments, 15 Minutes Each Physical Therapy: ___ Session Segments, 15 Minutes Each 45113 2015 ALISA FERRARA Therex x 15 minutes; those listed as Home Exercise Program Alfredo Osteopathic Manip Treatment (OMT) 1-2 Body Regions Involved Osteopathic Manip Treatment (OMT) 1-2 Body Regions Involved 36245 2015 ALISA FERRARA OMT to t-spine in prone and supine; multiple cavitations heard [facility] Physical Medicine Physical Therapy Re-Evaluation Physical Medicine Physical Therapy Re-Evaluation 36965 2015 ALISA FERRARA Chiropractic Manip Treatmt (CMT) Spinal One To Two Regions Chiropractic Manip Treatmt (CMT) Spinal One To Two Regions 21998 2015 FANNY JO Supine and side-lying SMT to C-spine and pelvis [facility] Physical Therapy Neuromuscular Re-education Physical Therapy Neuromuscular Re-education 00081 2015 JEANCARLOS LIN Physical Therapy: ___ Se ion Segments, 15 Minutes Each Physical Therapy: ___ Session Segments, 15 Minutes Each 77104 2015 JEANCARLOS LIN Chiropractic Manip Treatmt (CMT) Spinal Three To Four Region Chiropractic Manip Treatmt (CMT) Spinal Three To Four Region 80846 2015 FANNY JO Supine and side-lying SMT to C/T/L-spine, left 3rd rib and pelvis [facility] Implantable Contraceptive Capsules - Insertion 2015 BORIS [place] : CONFIRMED NEGATIVE URINE HCG WAS OBTAINED JUST PRIOR TO THE PROCEDURE. AFTER EXPLANING THE NATURE OF THE PROCEDURE, RISKS (INCLUDING BUT NOT LIMITED TO BLEEDING, UTERINE SPOTTING, CRAMPING, FEVER, INFECTION, SCARRING AND PAIN), BENEFITS, PT AGREED AND SIGNED WITNESSED CONSENT. UNIVERSAL PRECAUTIONS PROTOCOL COMPLETED. TIME OUT PERFORMED: RIGHT PT, RIGHT SITE, RIGHT PROCEDURE, RIGHT INSTRUMENTS/ SUPPLIES. PREFERRED SIDE OF PLACEMENT WAS CONFIRMED WITH THE PT. LEFT ARM LANDMARKS WERE IDENTIFIED. INSERTION AND GUIDING SITE WAS MARKED WITH THE RETRACTED TIP OF A PEN. THE AREA WAS CLEANED WITH BETADINE X3. 2CC OF 1% LIDOCAINE WITH EPINEPHRINE WAS INJECTED UNDER THE SKIN AND ALONG THE INSERTION CANAL. IN STERILE FASHION, THE APPLICATOR WAS INSPECTED AND THE PRESENCE OF THE NEXPLANON DEVICE WAS VERIFIED. THE APPLICATOR WAS USED TO INSERT THE NEXPLANON DEVICE PER MANUFACTURE PROTOCOL. THE GROOVED TIP OF THE OBTURATOR WAS VISIBLE INSIDE THE NEEDLE UPON REMOVAL. BOTH MYSELF AND THE PT PALPATED THE NEXPLANON DEVICE IN THE SUBDERMAL LOCATION. EBL <1CC. DIRECT PRESSURE WAS APPLIED. THE AREAS WERE CLEANED WITH STERILE SALINE SOLUTION. GOOD HOMEOSTASIS WAS ESTABLISHED. STERI-STRIP WAS PLACED OVER THE WOUND AND SECURED WITH A COBAN DRESSING. PT INSTRUCTED NOT TO REMOVE THE COBAN DRESSING X 24HRS AND THEN SHOWER USUAL, STERI-STRIP SHOULD REMAIN FOR 3-4 DAYS. PT IS INSTRUCTED TO UTILIZE BARRIER CONTRACEPTION X 7 DAYS SHE IS CURRENTLY NOT MENSTRUATING. PT WAS PAINFREE AND IN EXCELLENT CONDITION UPON EXITING THE CLINIC. Alfredo Physical Therapy: ___ Se ion Segments, 15 Minutes Each Physical Therapy: ___ Session Segments, 15 Minutes Each 96872 2015 JULIA GUERRERO Therex x 15 min; those listed as HEP [facility] Physical Medicine Physical Therapy Evaluation Physical Medicine Physical Therapy Evaluation 19253 2015 JULIA GUERRERO Exercises A isted Exercises For ROM Exercises Assisted Exercises For ROM 92972 2015 FANNY JO 8 minutes: Strengthening: Pelvic tilt, crunches, Postural and scapular stabilization basics Stretching: iformisAlfredo Chiropractic Manip Treatmt (CMT) Spinal Three To Four Region Chiropractic Manip Treatmt (CMT) Spinal Three To Four Region 56615 2015 FANNY JO Supine SMT to upper C-spine and left 3rd rib. Side-lying SMT to L5 and pelvis; ART to left piriformis. Alfredo [facility] Services Provision Of Educational Supplies -Supervised Services Provision Of Educational Supplies 92514 2015 FANNY JO Printed home exercise instructions. Alfredo Exercises A isted Exercises For ROM Exercises Assisted Exercises For ROM 88930 2015 FANNY JO 8 minutes: Strengthening: Pelvic tilt, crunches, Postural and scapular stabilization basics Stretching: Alfredo Shipman Chiropractic Manip Treatmt (CMT) Spinal Three To Four Region Chiropractic Manip Treatmt (CMT) Spinal Three To Four Region 53966 2015 FANNY JO Supine and side-lying SMT to C/T/L-spine, ribs and pelvis Alfred[facility] [employer] [facility] Fitting Monofocals (Not For Aphakia) [facility] Fitting Monofocals (Not For Aphakia) 31540 2015 SHERLYN ALEJANDRO Determination Of Refractive State Determination Of Refractive State 87290 2015 SHERLYN ALEJANDRO [facility] Ophthalmological New Patient Start Comprehensive Care Ophthalmological New Patient Start Comprehensive Care 14316 2015 SHERLYN ALEJANDRO [facility] Visual Function Screening Visual Function Screening 28773 2015 JUAN CARLOS KEARNS [facility] Visual Function Screening Visual Function Screening 51892 2015 SHERLYN ALEJANDRO [facility] Audiometry Group Testing Audiometry Group Testing 26380 2014 SHERLYN GANN V [facility] Skin Test Anergy Tuberculin Intradermal Skin Test Anergy Tuberculin Intradermal 25274 2014 ELY ZARATE IPPD; Series #: 1; .1 mL; ID; Left Arm; Mfg: [employer]; Lot: [id number]. [facility] Vaccines Vaccines 74677 2014 ELY ZARATE Influenza Split (Injectable); Series #: 1; .5 mL; IM; Left Arm; Mfg: [employer].; Lot: [id number]. [facility] Immunization Administration One Vaccine Immunization Administration One Vaccine 73095 2014 ELY ZARATE [facility] Biopsy Skin Each Additional Lesion Biopsy Skin Each Additional Lesion 2014 HECTOR LAMAS [facility] Biopsy Skin Biopsy Skin 2014 HECTOR LAMAS AFTER EXPLAINING NATURE OF PROCEDURE, RISKS (INCLUDING BUT NOT LIMITED TO BLEEDING, INFECTION, SCARRING, RECURRENCE, NUMBNESS), BENEFITS AND ALTERNATIVES, PT AGREED AND SIGNED CONSENT. PT WAS THEN TAKEN TO THE OR, SITE MARKED. A PROCEDURE TIME OUT WAS THEN PERFORMED, PROCEDURE SITE VERIFIED CORRECT BY PATIENT AND PT STATED FULL NAME AND FULL FMP/SSN WHICH WERE ALSO VERIFIED MATCHING THE LABELED SPECIMEN BOTTLE. THE AREA WAS PREPPED WITH ALCOHOL, LOCAL ANESTHESIA WITH 1% LIDOCAINE WITH EPINEPHRINE, AND REMOVAL OF THE LESION WAS THEN PERFORMED USING THE SHAVE TECHNIQUE. ONE SPECIMEN SENT TO PATHOLOGY FOR ANALYSIS. STERILE DRESSING APPLIED (PETROLAUM/COVE RLET). WOUND CARE DISCUSSED. WILL CALL PATIENT WITH PATH RESULTS WHEN AVAILABLE. [facility] Electrocardiogram Electrocardiogram 31753 12/07 JULIO CÉSAR ESTEBAN [facility] OB Services Antepartum Care Only Subsequent Single Visit OB Services Antepartum Care Only Subsequent Single Visit 0502F 2014 DARYL LÓPEZ [facility] OB Services Antepartum Care Only Subsequent Single Visit OB Services Antepartum Care Only Subsequent Single Visit 0502F 2014 ESCAMILLAZENA Boss [facility] OB Services Antepartum Care Only Subsequent Single Visit OB Services Antepartum Care Only Subsequent Single Visit 0502F 2014 ANDI ZENA Arian [facility] OB Services Antepartum Care Only Subsequent Single Visit OB Services Antepartum Care Only Subsequent Single Visit 0502F 2014 DARYL LÓPEZ OB Services Antepartum Care Only Subsequent Single Visit OB Services Antepartum Care Only Subsequent Single Visit 0502F 2014 DARYL LÓPEZ Chiropractic Manip Treatmt (CMT) Spinal One To Two Regions Chiropractic Manip Treatmt (CMT) Spinal One To Two Regions 59049 2014 FANNY JO Side-lying SMT to L-spine and pelvis after ART to piriformis bilaterally and left iliolumbar multifiddii. [facility] Immunization Administration One Vaccine Immunization Administration One Vaccine 55209 2014 ROSA ELENA GOODWIN Tdap Vaccine Seven Years Of Age And Above Tdap Vaccine Seven Years Of Age And Above 66413 2014 ROSA ELENA GOODWIN Rho D Immune Globulin (Human) Intramuscular Use Full-dose Rho D Immune Globulin (Human) Intramuscular Use Full-dose 54201 2014 SYMONE TALAVERA Chiropractic Manip Treatmt (CMT) Spinal One To Two Regions Chiropractic Manip Treatmt (CMT) Spinal One To Two Regions 95354 2014 FANNY JO Supine and side-lying SMT to C/T/L-spine, ribs and pelvis; ART to left piriformis [facility] Chiropractic Manip Treatmt (CMT) Spinal One To Two Regions Chiropractic Manip Treatmt (CMT) Spinal One To Two Regions 22422 2014 FANNY JO Side-lying SMT to L-spine and pelvis after ART to multifiddii and piriformis, instructed in sitting multifiddii stretch. [facility] Chiropractic Manip Treatmt (CMT) Spinal One To Two Regions Chiropractic Manip Treatmt (CMT) Spinal One To Two Regions 03824 2014 FANNY JO Supine and side-lying SMT to T/L-spine and pelvis after ART to hip flexors and piriformis Alfredo OB Services Antepartum Care Only Subsequent Single Visit OB Services Antepartum Care Only Subsequent Single Visit 0502F 2014 TIMO JACKSON Chiropractic Manip Treatmt (CMT) Spinal One To Two Regions Chiropractic Manip Treatmt (CMT) Spinal One To Two Regions 50222 2014 FANNY JO Side-lying SMT to L-spine and pelvis; ART to lumbar multifiddii and instruction in stretching multifiddi, recumbant and seated positions. Alfredo Gay-Supervised Services Provision Of Educational Supplies -Supervised Services Provision Of Educational Supplies 12983 2014 FANNY JO Printed home exercise instructions Alfredo Exercises A isted Exercises For ROM Exercises Assisted Exercises For ROM 81475 2014 FANNY JO 8 minutes: Stretching: Piriformis, after ART to piriformis and right psoas. Alfredo Chiropractic Manip Treatmt (CMT) Spinal One To Two Regions Chiropractic Manip Treatmt (CMT) Spinal One To Two Regions 69101 2014 FANNY JO Side-lying SMT to pelvis. Alfredo OB Services Antepartum Care Only Subsequent Single Visit OB Services Antepartum Care Only Subsequent Single Visit 0502F 2014 TIMO JACKSON Ultrasound Obstetric Limited Evaluation Ultrasound Obstetric Limited Evaluation 21628 2014 TIMO JACKSON OB Services Antepartum Care Only First Visit, With Report OB Services Antepartum Care Only First Visit, With Report 0500F 2014 TIMO JACKSON Mobilization Soft Ti ue Mobilization Soft Tissue 58516 2014 CORNELIO MERCER Physical Medicine Physical Therapy Re-Evaluation Physical Medicine Physical Therapy Re-Evaluation 07469 2014 CORNELIO MERCER Transabdominal Ultrasound Single Or First Gestation Transabdominal Ultrasound Single Or First Gestation 54417 2014 SENA BERNABE Phys Therapy Education Self Care Training - Per 15 Minutes Phys Therapy Education Self Care Training - Per 15 Minutes 26892 2013 GIANFRANCO JOINER Exercises A isted Exercises For ROM Exercises Assisted Exercises For ROM 02649 2013 GIANFRANCO JOINER Physical Medicine Physical Therapy Re-Evaluation Physical Medicine Physical Therapy Re-Evaluation 51718 2013 GIANFRANCO JOINER [facility] Physical Therapy: ___ Se ion Segments, 15 Minutes Each Physical Therapy: ___ Session Segments, 15 Minutes Each 08737 2013 ABRAN BRICEÑO [facility] PT A e ment Kinetic Training PT Assessment Kinetic Training 30523 2013 JAMES ALVAREZ V [facility] Modalities Cryotherapy Cold Packs Modalities Cryotherapy Cold Packs 04361 2013 DANISH COWART [facility] Physical Therapy: ___ Se ion Segments, 15 Minutes Each Physical Therapy: ___ Session Segments, 15 Minutes Each 43749 2013 DANISH COWART [facility] Physical Therapy: ___ Se ion Segments, 15 Minutes Each Physical Therapy: ___ Session Segments, 15 Minutes Each 61467 2013 ROSA ELENA SIDHU [facility] PT A e ment Kinetic Training PT Assessment Kinetic Training 16532 2013 ROSA ELENA SIDHU Phys Therapy Education Self Care Training - Per 15 Minutes Phys Therapy Education Self Care Training - Per 15 Minutes 22758 2013 GIANFRANCO JOINER Exercises A isted Exercises For ROM Exercises Assisted [place]ercises For ROM 35997 2013 GIANFRANCO JOINER Physical Medicine Physical Therapy Evaluation Physical Medicine Physical Therapy Evaluation 06908 2013 GIANFRANCO JOINER [facility] Social History Combined list of available smoking, tobacco, and other social history from 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 Social History Type Response Date Comment Sourc e Tobacco smoking status NHIS VA-TOBACCO FORMER USER 11/27/2023 [facility] History of tobacco use MD-TOBACCO QUIT 5 TO < 15 YRS 11/27/2023 [facility] History of tobacco use VA-TOBACCO QUIT 5 TO < 15 YRS 01/30/2023 [facility] History of tobacco use VA-TOBACCO FORMER USER 02/07/2022 [facility] History of tobacco use VA-TOBACCO FORMER USER 11/28/2018 [facility] History of tobacco use VA-TOBACCO FORMER USER 02/28/2018 [facility] History of tobacco use VA-TOBACCO FORMER USER 12/13/2017 [facility] History of tobacco use QUIT TOBACCO >12 MO and <7 YRS AGO 11/04/2017 [facility] History of tobacco use QUIT TOBACCO >12 MO and <7 YRS AGO 07/04/2017 [facility] CL[facility] IC This section is an empty social history section. [facility] Plan of Care List of future care activities from Department of 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 Additional future care activities may be listed in the Assessment and Plan section. Date/Time Care Activity Care Activity Detail Facili ty 08/26/2024 AMBULATORY - MEDICINE AMBULATORY - MEDICI NE [facility]
--- OUTSIDE RECORDS SUMMARY | 2024-08-22 21:51 | XMS_ITS | Clinical Summary ---
Author Organization [facility] [employer] [facility] Address [address] [place] [address] Care Team Providers Care Clinical Care Manager Name Role Phone Antolin Jennifer Love APRN-PASTE MIXER [employer]QUID Primary Care Provider Source Comments [facility],non-owned Affiliates and Associated Physician Practices is amultiple site organization consisting of ambulatory clinics and hospital sitesin [place], [place], [place] and [place]. This disclosure is being madepursuant to the Care Everywhere program and may not contain all information available regarding this patient. Last updated 17.[facility] Allergies Active Allergy Reactions Criticality Noted Date Comments Amoxicillin Other 11/02/2016 Gets yeast infections Medications * Be aware that medications may not be up to date on this document. Alwaysverify current medications with the patient. etonogestrel (NEXPLANON) 68 MG implant 68 mg by Subdermal route as directed Active topiramate (TOPAMAX) 50 MG tabletIndicatio ns:Migraine Take 1 tablet by mouth 2 times daily Reasons: Migraine Headache 60 tablet 5 7 Active baclofen (LIORESAL) 10 MG tablet Take 1 tablet by mouth 3 times daily May cause drowsiness. 30 tablet 8 Active Active Problems No known active problems Social History Tobacco Use Types Packs/Day Years Used Date Smoking Tobacco: Former Cigarettes 2013 Smokeless Tobacco: Never Alcohol Use Standard Drinks/Week Comments Yes 0 (1 standard drink = 0.6 oz pur e alcohol) occ Comments No Sex and Gender Information Value Date Recorded Sex Assigned at Not on file Legal Sex Female 9:14 AM QUALITY IMPROVEMENT ENGINEER Gender Identity Not on file Sexual Orientation Not on file Last Filed Vital Signs Vital Sign Reading Time Taken Comments Blood Pressure 118/78 04/09/2017 10:26 AM QUALITY IMPROVEMENT ENGINEER Pulse 63 04/09/2017 10:26 AM QUALITY IMPROVEMENT ENGINEER Temperature 36.8 C (98.2 F) 04/09/2017 10:26 AM QUALITY IMPROVEMENT ENGINEER Respiratory Rate 16 11/02/2016 2:07 PM CDT Oxygen Saturation 93% 04/09/2017 10:26 AM QUALITY IMPROVEMENT ENGINEER Inhaled Oxygen Concentration - - Weight 97.8 kg (215 lb 8 oz) 04/09/2017 10:26 AM QUALITY IMPROVEMENT ENGINEER Height 172.7 cm (5' 8) 04/09/2017 10:26 AM QUALITY IMPROVEMENT ENGINEER Body Mass Index 32.77 04/09/2017 10:26 AM QUALITY IMPROVEMENT ENGINEER Plan of Treatment Health Maintenance Due Date Last Done Comments HIV SCREENING 11/26/2003 HEPATITIS C SCREENING 11/21/2006 DTAP/TDAP/TD VACCINES (1 - Tdap) 11/26/2007 HEPATITIS B VACCINE (1 of 3 - 19+ 3-dose series) 11/26/2007 COVID-19 VACCINE ( - season) 2023 DEPRESSION SCREENING 03/11/2024 INFLUENZA VACCINE (Season Ended) 2024 01/09/2016, 01/24/2015, 12/04/2013, Additional history exists ZOSTER VACCINE (1 of 2) 2038 HIB VACCINE Aged Out No longer eligi ble based on patient's age to complete this topic HPV VACCINE Aged Out No longer eligi ble based on patient's age to complete this topic MENINGOCOCCAL (Group B) VACCINE SHARED DECISION-MAKING Aged Out No longer eligible based on patient's age to complete this topic MENINGOCOCCAL GROUPS A/C/Y/W VACCINE Aged Out No longer eligible based on patient's age to complete this topic PNEUMOCOCCAL VACCINE Aged Out No long er eligible based on patient's age to complete this topic Insurance [facility] Care Teams Clinical Care Manager Relationship Specialty Start Date End Date Jennifer Dangelo, ARPIT-PASTE MIXER [employer]QUID PCP - General Nurse Practitioner 05/10/16
--- OUTSIDE RECORDS SUMMARY | 2024-08-22 21:51 | XMS_ITS | Encounter Summary ---
Author Name [facility] [facility] [place] [facility] [place] Address [address] [place] [address] Care Team Providers Care Hyster Driver Name Role Phone USAMA LOPEZ Primary Care [...] TER & EMPLO YERS Mar 11, 2018 [id number] [phone] MULTANIAXEL SPOUSE [place] PREFERRED PROVIDER ORGANIZAT ION (PPO) TEAMS TER + EMPLO YERS Mar 11, 2018 [id number] [phone] RANGEL AXEL SPOUSE LDI RX PRESCRIPT ION TEAMS TER & EMPLO YERS Mar 11, 2018 [id number] [phone] GAYLA MULTANI SPOUSE Selected Encounter This section includes the information on record at [place] for the Encounter. Date/Time Encounter Type Encounter Description Reason Provider Source Jun 15, 2024 02:00 PM OFF/OP CNSLTJ NEW/EST LOW 30 NEWSROOM INTERN ICD-10-CM M54.50 Low back pain, unspecified KAYLA HERRON Ramesh Encounter Template Text not used by [place] Assessments - Encounter Diagnoses This section includes the primary and secondary diagnoses documented for the Encounter. Date/Time Primary/Secondary Diagnosis Diagnosis Name Provider Source Jun 15, 2024 02:43 PM PRIMARY Low back pain, unspecified GERMAINE,KAYLA [facility] Jun 15, 2024 02:43 PM SECONDARY Myalgia, unspecified site KAYLA HERRON [facility] Plan of Treatment: Future Appointments (+ 6 months) and Future Tests (+/- 45 days) The Plan of Treatment section includes future care activities for the patient [facility] This section includes future appointments and future orders which are active, pending or scheduled. Future Appointments This section includes appointments that were scheduled to occur 6 months from the date of the Encounter, up to a maximum of 20 appointments. The data comes from all [place] treatment facilities. Appointment Date/Time Appointment Type Appointme nt Facility Name Jun 17, 2024 11:00 AM AMBULATORY - MEDICINE [facility] Jun 24, 2024 11:00 AM AMBULATORY - MEDICINE [facility] Jun 24, 2024 02:00 PM AMBULATORY - MEDICINE [facility] Jul 08, 2024 10:00 AM AMBULATORY - MEDICINE [facility] July 30, 2024 11:30 AM AMBULATORY - MEDICINE [facility] August 06, 2024 01:00 PM AMBULATORY - MEDICINE [facility] Aug 12, 2024 10:00 AM AMBULATORY - MEDICINE [facility] Aug 26, 2024 10:00 AM AMBULATORY - MEDICINE [facility] Sep 18, 2024 11:00 AM AMBULATORY - MEDICINE [facility] Oct 12, 2024 03:15 PM AMBULATORY - MEDICINE [facility] Social History: Smoking Status (Most current) and [...] 30, 2023 03:14 PM VA-TOBACCO FORMER USER [facility] Tobacco Use History This section includes a history of the smoking, or tobacco-related health factors, that were collected on or before the date of the Encounter. The data comes from the [place] facility where the Encounter took place. Date/Time Smoking Status/Tobacco Use Comment Flako accassandra Jan 30, 2023 03:14 PM VA-TOBACCO QUIT 5 TO < 15 YRS [facility] Nov 04, 2017 09:12 AM QUIT TOBACCO >12 M O & <7 YRS AGO [facility] Encounter Notes: All associated encounter notes This section contains the clinical notes associated to the Encounter. Date/Time Encounter Note(s) Provider Source Jun 15, 2024 07:35 AM CONSULT: LOCAL TITLE: [facility]IC [facility] CONSULT ST STANDARD TITLE: CONSULT DATE OF NOTE: JUN 15, 2024@07:35 ENTRY DATE: JUN 15, 2024@07:35:16 AUTHOR: KAYLA HERRON EXP COSIGNER: URGENCY: STATUS: COMPLETED SUBJECTIVE COMPLAINT: presents for an initial chiropractic consultation. She reports a chief complaint of low back pain. She says she has had back pain for a long time and denies any specific mechanism of injury. Her back pain has worsened with . She is currently 35 weeks and is scheduled for a on 06/24/2024 at the latest. She denies any radiation into her lower extremities but reports variable locations of numbness that have come on with her , including the left lateral thigh. Everything makes her pain worse and rest is the only thing that makes it better. She describes her pain as sharp and burning. She rates her pain today as 5/10 and says it is generally worse after she has been on her feet all day at work. She missed a previous chiropractic consult appointment and wanted to get established today and hold off on any aggressive treatment until after she has her . RED FLAGS: [-] Recent unexplained weight loss [-] History of Cancer [-] Recent fever/chills [-] Chest Pain/SOB [-] Abdominal Pains [-] Bowel/Bladder Incontinence [-] New Severe Headache [-] Dizziness [-] Strokes GOALS: reduce pain; get established with chiropractor for treatment after her upcoming Do you have a Whole Health Reading Assistant? 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 Tobacco: denies ETOH: denies Illicits: denies Service Connected: Yes (100%) DS - Disabilities Eligibility: SERVICE CONNECTED 50% to 100% VERIFIED Total S/C %: 100 SCARS 0% S/C HIATAL HERNIA 10% S/C LIMITED FLEXION OF THIGH 10% S/C ALLERGIC OR VASOMOTOR RHINITIS 0% S/C LIMITED FLEXION OF KNEE 10% S/C TINNITUS 10% S/C INTERVERTEBRAL DISC SYNDROME 20% S/C MIGRAINE HEADACHES 30% S/C PARALYSIS OF UPPER RADICULAR NERVE GROUP 20% S/C FLAT FOOT CONDITION 30% S/C LIMITED MOTION OF ANKLE 10% S/C THIGH CONDITION 0% S/C NEUROSIS, GEN ANX DIS 70% S/C LIMITED MOTION OF ANKLE 10% S/C INTERVERTEBRAL DISC SYNDROME 20% S/C LIMITED EXTENSION OF THIGH 0% S/C PARALYSIS OF SCIATIC NERVE 10% S/C SUPERFICIAL SCARS 10% S/C CAN Score: Unavailable EXAMINATION APPEARANCE, MOOD & ORIENTATION The patient is a 33 year old WHITE NOT OR FEMALE, who is alert and oriented to person, place, and time. The patient is in no apparent distress and is well developed and well nourished. Patient walks with no difficulty. OBJECTIVE/PALPATION: Other restriction/tenderness: motion restrictions noted in the lumbar/SIJ regions Muscle strength/tone/tenderness: hypertonicity noted in the lumbar paraspinal mm b/l THORACOLUMBAR RANGE OF MOTION : Ranges of motion in flexion, extension, lateral flexion, and rotation were all in normal range without pain except: All limited due to being 35 weeks SENSORY Light touch: Numbness reported left lateral thigh in the distribution of lateral femoral cutaneous nerve that would likely resolve after her ; otherwise intact and equal bilateral upper and lower extremities MOTOR (Graded 0-5) All 5/5 bilaterally Deltoids (C5) Biceps (C6) Wrist Extension (C6) Triceps (C7) Finger Extension (C7) Finger Flexion (C8) Finger Adduction (T1) Hip Flexion - Iliopsoas (L1,2,3) Leg Extension - Quadriceps (L2,3,4) Hip Extension - Gluteus Robin (S1) Hip Adduction (L2,3,4) Tibialis Anterior (L4) Extensor Hallucis Longus (L5) Peroneus Longus and Brevis (S1) REFLEXES - Deep Tendon All 2+ bilaterally (Graded 0-4) Biceps (C5) Triceps (C7) Brachioradialis (C6) Patellar (L4) Achilles (S1) Gait Toe Walk (S1,S2) wnl Heel Walk (L4,L5) wnl Additional Tests: Alvarenga's neg b/l; neg for clonus at ankles and wrists; tandem gate w/o difficulty; no Rhomberg's elicited and no pronator drift; hand bulk normal, inverted supinator sign neg b/l Additional Comments: Orthopedic testing limited given that she is 35 weeks REVIEW OF DIAGNOSTIC IMAGING: MRI SPINE LUMBAR W/O CONT Exm Date: JAN 21, 2020@15:51 FINDINGS: The lowest fully formed intervertebral disc space designated as L5-S1. Mild retrolisthesis at L5-S1 is redemonstrated. Normal distal spinal cord signal. No suspicious marrow replacing lesion. Very subtle type I Modic changes are seen at multiple levels. The conus is at T12-L1. T2 bright left renal lesion incompletely evaluated on the present study. Statistically most likely represents a cyst. T12-L1: No significant neuroforaminal stenosis. No significant central canal stenosis. L1-L2: No significant neuroforaminal stenosis. No significant central canal stenosis. L2-L3: No significant neuroforaminal stenosis. No significant central canal stenosis. L3-L4: No significant neural foraminal stenosis. No significant central canal stenosis. L4-L5: No significant neuroforaminal stenosis. Mild circumferential disc bulge. No significant central canal stenosis. Mild facet arthropathy. L5-S1: Mild to moderate left mild right neuroforaminal stenosis. Circumferential disc bulge with annular fissure formation. Mild left greater than right facet arthropathy. Fluid in the facet joints. No significant central canal stenosis. Impression: Mild degenerative disc disease most prominent at L5-S1. HIP W/PELVIS 2-3 VIEW LEFT Exm Date: JULY 16, 2017@13:22 Report: Hip 2 views, pelvis one view Comparison: No fracture-dislocation.. No other osseous abnormality. Impression: Normal SPINE LUMBOSACRAL 2 OR 3 VIEWS Exm Date: JULY 16, 2017@13:22 No fracture or malalignment is present. The pedicles, spinous processes, and sacroiliac joints are normal. The disc spaces are well-maintained. Impression: Normal ASSESSMENT: Non-specific low back pain with associated segmental dysfunction and myalgia related to . No red flags. Trial of care can proceed. No need for further testing at this time. Prognosis for improvement with conservative care likely good. She is scheduled for a in 9 days and possibly sooner. She wishes to recover from that before beginning care but should do well once she has fully recovered. She was encouraged to engage in whole health modalities virtually in the meantime. REFERRAL DATE: 03/17/24 EXAM DATE(S): 06/15/24 14:00 INITIAL TREATMENT DATE: 06/15/24 14:00 TYPE OF CARE: active DISCHARGE DATE: ALERTS: PLAN: The patient was given a review of findings following the exam. The benefits, risks and alternatives to certified caregiver were discussed with the patient, along with an opportunity to ask questions. Patient then gave an informed consent to treatment. Plan of care will consist of 4-6 visits consisting of chiropractic manipulation with an incremental increase in home care instructions depending on the patient's response. The patient agrees to this plan. The was informed that part of today's treatment would be performed by chiropractic student Jimmy Butler and they agreed to treatment. Today's treatment consisted of: -Myofascial treatment (mix of pin and stretch and vibratory massager) of the lumbar paraspinal mm b/l. *Treatment was limited today since she is 35 weeks and will be having a soon Manual Therapy: 8 min Outpatient Consult Detailed Exam consisting of chart review, history, exam, education, and documentation: 35 min Treatment was well tolerated and without incident. Assigned and demonstrated the exercises listed below. Gave handouts. HOME CARE: -Lacrosse ball for self myofascial care WHOLE HEALTH: We discussed Whole Health offerings that are available as an adjunct to certified caregiver. The orientation/coaching process was described. I gave the a printed information packet, website, and phone number for scheduling. RTC: She will call to schedule a follow-up appointment when she has recovered from her upcoming /debi/ KAYLA HERRON Whole [facility] Chiropractor Signed: 06/15/2024 14:43 KAYLA HERRON [facility]
--- OUTSIDE RECORDS SUMMARY | 2024-08-22 21:51 | XMS_ITS ---
Author Name [facility] [place] [facility] [place] Organization [facility] [place] Address [address] [place] [address] Care Team Providers Care Paper Cup Handle Machine Operator Name Role Phone USAMA LOPEZ [...] TER & EMPLO YERS Mar 11, 2018 [id number] [phone] AXEL MULTANI SPOUSE [place] PREFERRED PROVIDER ORGANIZAT ION (PPO) TEAMS TER + EMPLO YERS Mar 11, 2018 [id number] [phone] RANGEL AXEL SPOUSE LDI RX PRESCRIPT ION TEAMS TER & EMPLO YERS Mar 11, 2018 [id number] [phone] MULTANI GAYLA SPOUSE Selected Encounter This section includes the information on record at [place] for the Encounter. Date/Time Encounter Type Encounter Description Reason Provider Source Apr 21, 2024 01:20 PM Outpatient Encounter ADMIN PAT ACTIVTIES (MASNONCT) TONO MCRAE PRATIBHA Ramesh Encounter Template Text not used by [facility] Plan of Treatment: Future Appointments (+ 6 months) and Future Tests (+/- 45 days) The Plan of Treatment section includes future care activities for the patient from all [place] treatmentfacilities. This section includes future appointments and future orders which are active, pending or scheduled. Future Appointments This section includes appointments that were scheduled to occur 6 months from the date of the Encounter, up to a maximum of 20 appointments. The data comes from all [place] treatment facilities. Appointment Date/Time Appointment Type Appointme nt Facility Name Apr 22, 2024 11:30 AM AMBULATORY - NONE YENNI Leonel Schwartz [facility] Apr 28, 2024 11:00 AM AMBULATORY - MEDICINE [facility] May 26, 2024 11:00 AM AMBULATORY - MEDICINE [facility] Jun 12, 2024 02:00 PM AMBULATORY - MEDICINE [facility] Jun 15, 2024 02:00 PM AM[facility]ULATORY - NONE [facility] Jun 17, 2024 11:00 AM AMBULATORY - MEDICINE [facility] Jun 24, 2024 11:00 AM AMBULATORY - MEDICINE [facility] Jun 24, 2024 02:00 PM AMBULATORY - MEDICINE [facility] Jul 08, 2024 10:00 AM AMBULATORY - MEDICINE [facility] July 30, 2024 11:30 AM AMBULATORY - MEDICINE [facility] August 06, 2024 01:00 PM AMBULATORY - MEDICINE [facility] Aug 12, 2024 10:00 AM AMBULATORY - MEDICINE [facility] Aug 26, 2024 10:00 AM AMBULATORY - MEDICINE [facility] Sep 18, 2024 11:00 AM AMBULATORY - MEDICINE [facility] Oct 12, 2024 03:15 PM AMBULATORY - MEDICINE [facility] Social History: Smoking Status (Most current) and Tobacco Use (All prior to encounter date) This section includes the most current, and the historical, smoking and tobacco- related health factors from the [place] facility where the Encounter took place. Current Smoking Status This section includes the most current smoking, or tobacco-related health factor, from the [place] facility where the Encounter took place. Date/Time Current Smoking Status Comment Facil ity Nov 28, 2018 10:42 AM VA-TOBACCO FORMER USER [facility] Tobacco Use History This section includes a history of the smoking, or tobacco-related health factors, that were collected on or before the date of the Encounter. The data comes from the [place] facility where the Encounter took place. Date/Time Smoking Status/Tobacco Use Comment F eunice Nov 28, 2018 10:42 AM [place]-TOBACCO QUIT 1 TO < 5 YRS [facility] Encounter Notes: All associated encounter notes This section contains the clinical notes associated to the Encounter. Date/Time Encounter Note(s) Provider Source Apr 21, 2024 01:20 PM PHARMACY MEDICATIO N MGT DISCHARGE NOTE: LOCAL TITLE: PHARMACY COMMUNITY CARE PRESCRIPTION PROCESSING NOT STANDARD TITLE: PHARMACY MEDICATION MGT DISCHARGE NOTE DATE OF NOTE: APR 21, 2024@13:20 ENTRY DATE: APR 21, 2024@13:20:37 AUTHOR: TONO MCRAE WHI EXP COSIGNER: URGENCY: STATUS: COMPLETED Pharmacy service received prescription(s) via: Fax ELIGIBILITY: [facility] ([facility]) eligibility has been verified and/or is documented. PRESCRIPTION INFORMATION: Provider Information:Bertha Barker, fax: [phone] 1) furosemide DISPOSITION: The medication(s) prescribed is/are formulary without criteria for use or other restrictions, and will be dispensed to the patient. /debi/ TONO MCRAE, [facility] Pharmacist, Pharmacy Signed: 04/21/2024 13:22 TONO MCRAE [facility]
--- OUTSIDE RECORDS SUMMARY | 2024-08-22 21:51 | XMS_ITS ---
Author Name [facility] [place] Address [address] [place] [address] Care Team Providers Care Eyeglass Maker Name Role Phone USAMA LOPEZ Primary Care [...] TER & EMPLO YERS Mar 11, 2018 [id number] [phone] AXEL MULTANI SPOUSE [employer] PREFERRED PROVIDER ORGANIZAT ION (PPO) TEAMS TER + EMPLO YERS Mar 11, 2018 [id number] [phone] AXEL MULTANI SPOUSE LDI RX PRESCRIPT ION TEAMS TER & EMPLO YERS Mar 11, 2018 [id number] [phone] AGUSTINA MULTANIY SPOUSE Selected Encounter This section includes the information on record at [place] for the Encounter. Date/Time Encounter Type Encounter Description Reason Provider Source Mar 23, 2024 03:29 PM Outpatient Encounter ADMIN PAT ACTIVTIES (MASNONCT) TONO MCRAE Ramesh Encounter Template Text not used by [facility] Plan of Treatment: Future Appointments (+ 6 months) and Future Tests (+/- 45 days) The Plan of Treatment section includes future care activities for the patient from all [place] treatmentfacilities. This section includes future appointments and future orders which are active, pending or scheduled. Future Appointments This section includes appointments that were scheduled to occur 6 months from the date of the Encounter, up to a maximum of 20 appointments. The data comes from all [place] treatment facilities. Appointment Date/Time Appointment Type Appointme nt Facility Name Apr 09, 2024 11:00 AM AMBULATORY - MEDICINE [facility] [facility] Apr 14, 2024 03:30 PM AMBULATORY - MEDICINE [facility] [address] [facility] Apr 21, 2024 08:30 AM AMBULATORY - MEDICINE [facility] Apr 22, 2024 11:30 AM AMBULATORY - NONE YENNI Schwartz [facility] Apr 28, 2024 11:00 AM AMBULATORY - MEDICINE [facility] [facility] May 26, 2024 11:00 AM AMBULATORY - MEDICINE [facility] [facility] Jun 12, 2024 02:00 PM AMBULATORY - MEDICINE [facility] Jun 15, 2024 02:00 PM AMBULATORY - NONE [facility] Jun 17, 2024 11:00 AM AMBULATORY - MEDICINE [facility] [facility] Jun 24, 2024 11:00 AM AMBULATORY - MEDICINE [facility] Jun 24, 2024 02:00 PM AMBULATORY - MEDICINE [facility] [facility] Jul 08, 2024 10:00 AM AMBULATORY - [facility] July 30, 2024 11:30 AM AMBULATORY - MEDICINE [facility] August 06, 2024 01:00 PM AMBULATORY - MEDICINE [facility] Aug 12, 2024 10:00 AM AMBULATORY - MEDICINE [facility] Aug 26, 2024 10:00 AM AMBULATORY - MEDICINE [facility] Sep 18, 2024 11:00 AM AMBULATORY - MEDICINE [facility] Social History: Smoking Status (Most current) and Tobacco Use (All prior to encounter date) This section includes the most current, and the historical, smoking and tobacco- related health factors from the [place] facility where the Encounter took place. Current Smoking Status This section includes the most current smoking, or tobacco-related health factor, from the [place] facility where the Encounter took place. Date/Time Current Smoking Status Comment Laly alvarezy Nov 28, 2018 10:42 AM [place]-TOBACCO FORMER USER [facility] Tobacco Use History This section includes a history of the smoking, or tobacco-related health factors, that were collected on or before the date of the Encounter. The data comes from the [place] facility where the Encounter took place. Date/Time Smoking Status/Tobacco Use Comment F accassandra Nov 28, 2018 10:42 AM CO-TOBACCO QUIT 1 TO < 5 YRS [facility] Encounter Notes: All associated encounter notes This section contains the clinical notes associated to the Encounter. Date/Time Encounter Note(s) Provider Source Mar 23, 2024 03:29 PM PHARMACY MEDICATIO N MGT DISCHARGE NOTE: LOCAL TITLE: PHARMACY COMMUNITY CARE PRESCRIPTION PROCESSING NOT STANDARD TITLE: PHARMACY MEDICATION MGT DISCHARGE NOTE DATE OF NOTE: MAR 23, 2024@15:29 ENTRY DATE: MAR 23, 2024@15:29:23 AUTHOR: TONO MCRAE [facility] EXP COSIGNER: URGENCY: STATUS: COMPLETED Pharmacy service received prescription(s) via: Inbound ERx ELIGIBILITY: [facility] ([facility]) eligibility has been verified and/or is documented. PRESCRIPTION INFORMATION: Provider Information:HECTOR MARKS, fax: [phone] 1) eRx Drug : progesterone micronized 200 mg capsule (PROMETRIUM)eRx SIG : Place one capsule vaginally every night #30, 3 refills 2) eRx Drug : ferrous sulfate 325 mg (65 mg iron) tableteRx SIG : Take 1 tablet (325 mg total) by mouth daily with breakfast 3) eRx Drug : docusate sodium 100 mg capsule (COLACE)eRx SIG : Take 1 capsule (100 mg total) by mouth 2 (two) times a day as needed for constipation 4) eRx Drug : cholecalciferol (vitamin D3) 50 mcg (2,000 unit) tablet (VITAMIN D-3)eRx SIG : Take 1 tablet (2,000 Units total) by mouth daily 5) eRx Drug : aspirin 81 mg tablet,delayed releaseeRx SIG : Take 1 tablet (81 mg total) by mouth daily DISPOSITION: The medication(s) prescribed is/are formulary without criteria for use or other restrictions, and will be dispensed to the patient. /debi/ TONO MCRAE PharmD [facility] Pharmacist, Pharmacy Signed: 03/23/2024 16:[address] [facility]
--- OUTSIDE RECORDS SUMMARY | 2024-08-22 21:51 | XMS_ITS ---
Author Name [facility] [place] [facility] [place] Address [address] [place] [address] Care Team Providers Care Needle Punch Machine Operator Name Role Phone USAMA LOPEZ [...] TER & EMPLO YERS Mar 11, 2018 [id number] [phone] MULTANIAXEL SPOUSE [place] PREFERRED PROVIDER ORGANIZAT ION (PPO) TEAMS TER + EMPLO YERS Mar 11, 2018 [id number] [phone] MULTANI AXEL SPOUSE LDI RX PRESCRIPT ION TEAMS TER & EMPLO YERS Mar 11, 2018 [id number] [phone] GAYLA MULTANI SPOUSE Selected Encounter This section includes the information on record at [place] for the Encounter. Date/Time Encounter Type Encounter Description Reason Provider Source July 30, 2024 09:35 AM [facility] OL DIG ASSMT&MGMT 21+ CLINICAL PHARMACY ICD-10-CM Z86.711 Personal history of pulmonary embolism TERESA SANDHU IHE Encounter Template Text not used by [place] Assessments - Encounter Diagnoses This section includes the primary and secondary diagnoses documented for the Encounter. Date/Time Primary/Secondary Diagnosis Diagnosis Name Provider Source July 30, 2024 09:58 AM PRIMARY Personal history of pulmonary embolism TERESA SANDHU [facility] Plan of Treatment: Future Appointments (+ 6 months) and Future Tests (+/- 45 days) The Plan of Treatment section includes future care activities for the patient from all [place] [facility]. This section includes future appointments and future orders which are active, pending or scheduled. Future Appointments This section includes appointments that were scheduled to occur 6 months from the date of the Encounter, up to a maximum of 20 appointments. The data comes from all [facility] facilities. Appointment Date/Time Appointment Type Appointme nt Facility Name August 06, 2024 01:00 PM AMBULATORY - MEDICINE [facility] Aug 12, 2024 10:00 AM AMBULATORY - MEDICINE [facility] Aug 26, 2024 10:00 AM AMBULATORY - MEDICINE [facility] Sep 18, 2024 11:00 AM AMBULATORY - MEDICINE [facility] Oct 12, 2024 03:15 PM AMBULATORY - MEDICINE [facility] Social History: Smoking Status (Most current) and Tobacco Use (All prior to encounter date) This section includes the most current, and the historical, smoking and tobacco- related health factors from the [place] facility where the Encounter took place. Current Smoking Status This section includes the most current smoking, or tobacco-related health factor, from the [place] facility where the Encounter took place. Date/Time Current Smoking Status Comment Facil ity Jan 30, 2023 03:14 PM VA-TOBACCO FORMER USER [facility] Tobacco Use History This section includes a history of the smoking, or tobacco-related health factors, that were collected on or before the date of the Encounter. The data comes from the [place] facility where the Encounter took place. Date/Time Smoking Status/Tobacco Use Comment F acility Jan 30, 2023 03:14 PM [place]-TOBACCO QUIT 5 TO < 15 YRS [facility] Nov 04, 2017 09:12 AM QUIT TOBACCO >12 M O & <7 YRS AGO [facility] Encounter Notes: All associated encounter notes This section contains the clinical notes associated to the Encounter. Date/Time Encounter Note(s) Provider Source July 31, 2024 10:00 AM ADDENDUM: LOCAL TITLE: Addendum STANDARD TITLE: ADDENDUM DATE OF NOTE: JULY 31, 2024@10:00:23 ENTRY DATE: JULY 31, 2024@10:00:24 AUTHOR: TERESA SANDHU EXP COSIGNER: URGENCY: STATUS: COMPLETED Alerting patient's PCP to above ED visist and acute PE. Patient ED prescription approved through care in the community for one month supply; after intial supply has been completed patient will need referral from PCP and PADR for rivaroxaban for continued therapy. /debi/ TERESA SANDHU, PHARMD, BCACP, CACP CLINICAL PHARMACY PRACTITIONER Signed: 07/31/2024 10:02 Receipt Acknowledged By: 08/04/2024 08:15 /debi/ USAMA LOPEZ Staff Physician --- Original Document --- 07/30/24 PHARMACY PRIOR APPROVAL CONSULT STL: The medical record has been reviewed with regard to this prior authorization drug request. Medication requested: RIVAROXABAN 15MG TAB Medication indication: PE New request (x) Renewal request () Medication: rivaroxaban Strength: 15 mg BID x21 days then 20 mg daily Justification: Pt w/PE diagnosed at [facility] 07/30; recent 07/24. NO contraindications to rivaroxaban use; labs from ED below. Per ED notes patient educated to formula feed baby due to lack of robust data regarding DOAC use during . NO critical drug interactions noted. Labs below. Request approved. Hemoglobin done on the outside VALUE: 8.1 Date: July 30, 2024 Location: [facility] HCT done on the outside VALUE: 24.6 Date: July 30, 2024 Location: [facility] Creatinine (serum) done on the outside VALUE: 0.79 Date: July 30, 2024 Location: [facility] Platelets done on the outside VALUE: 320 Date: July 30, 2024 Location: [facility] AST/SGOT done on the outside Value: 34 Date: June 30, 2024 Location: [facility] ALT/SGPT done on the outside Value: 46 Date: June 30, 2024 Location: [facility] Request approved; will alert [facility] pharmacist for prescription entry The request is approved - A documented therapeutic failure of the preferred formulary alternative(s) exists TIME REVIEWING CHART:25. (minutes) /debi/ TERESA SANDHU PHARMD, BCACP, CACP CLINICAL PHARMACY PRACTITIONER Signed: 07/30/2024 09:59 Receipt Acknowledged By: 07/30/2024 11:37 /debi/ TONO MCRAE PharmD Community Care Pharmacist, Pharmacy TERESA SANDHU [facility] July 30, 2024 09:50 AM PHARMACY CONSULT: LOCAL TITLE: PHARMACY PRIOR APPROVAL CONSULT ST STANDARD TITLE: PHARMACY CONSULT DATE OF NOTE: JULY 30, 2024@09:50 ENTRY DATE: JULY 30, 2024@09:50:27 AUTHOR: TERESA SANDHU EXP COSIGNER: URGENCY: STATUS: COMPLETED PHARMACY PRIOR APPROVAL CONSULT STL Has ADDENDA The medical record has been reviewed with regard to this prior authorization drug request. Medication requested: RIVAROXABAN 15MG TAB Medication indication: PE New request (x) Renewal request () Medication: rivaroxaban Strength: 15 mg BID x21 days then 20 mg daily Justification: Pt w/PE diagnosed at [facility] 07/30; recent 07/24. NO contraindications to rivaroxaban use; labs from ED below. Per ED notes patient educated to formula feed baby due to lack of robust data regarding DOAC use during . NO critical drug interactions noted. Labs below. Request approved. Hemoglobin done on the outside VALUE: 8.1 Date: July 30, 2024 Location: [facility] HCT done on the outside VALUE: 24.6 Date: July 30, 2024 Location: [facility] Creatinine (serum) done on the outside VALUE: 0.79 Date: July 30, 2024 Location: [facility] Platelets done on the outside VALUE: 320 Date: July 30, 2024 Location: [facility] AST/SGOT done on the outside Value: 34 Date: June 30, 2024 Location: [facility] ALT/SGPT done on the outside Value: 46 Date: June 30, 2024 Location: [facility] Request approved; will alert [facility] pharmacist for prescription entry The request is approved - A documented therapeutic failure of the preferred formulary alternative(s) exists TIME REVIEWING CHART:25. (minutes) /debi/ TERESA SANDHU PHARMD, PHILL, ALEX CLINICAL PHARMACY PRACTITIONER Signed: 07/30/2024 09:59 Receipt Acknowledged By: 07/30/2024 11:37 /debi/ TONO MCRAE PharmD Community Care Pharmacist, Pharmacy 07/31/2024 ADDENDUM STATUS: COMPLETED Alerting patient's PCP to above ED visist and acute PE. Patient ED prescription approved through care in the community for one month supply; after intial supply has been completed patient will need referral from PCP and PADR for rivaroxaban for continued therapy. /debi/ TERESA SANDHU PHARMD, PHILL, ALEX CLINICAL PHARMACY PRACTITIONER Signed: 07/31/2024 10:02 Receipt Acknowledged By: * AWAITING SIGNATURE * USAMA LOPEZ ANNA P [facility]
--- OUTSIDE RECORDS SUMMARY | 2024-08-22 21:51 | XMS_ITS | Encounter Summary ---
Author Name [facility] [place] [facility] [place] Address [address] [place] [address] Care Team Providers Care Javascript Software Engineer Name Role Phone USAMA LOPEZ Primary Care [...] TER & EMPLO YERS Mar 11, 2018 [id number] [phone] AXEL MULTANI SPOUSE [place] PREFERRED PROVIDER ORGANIZAT ION (PPO) TEAMS TER + EMPLO YERS Mar 11, 2018 [id number] [phone] AXEL MULTANI SPOUSE LDI RX PRESCRIPT ION TEAMS TER & EMPLO YERS Mar 11, 2018 [id number] [phone] AGUSTINA MULTANIY SPOUSE Selected Encounter This section includes the information on record at [place] for the Encounter. Date/Time Encounter Type Encounter Description Reason Provider Source August 05, 2024 05:32 PM Outpatient Encounter GENERAL INTERNAL MEDICINE USAMA LOPEZ Encounter Template Text not used by [place] Plan of Treatment: Future Appointments (+ 6 months) and Future Tests (+/- 45 days) The Plan of Treatment section includes future care activities for the patient from all [place] [facility] This section includes future appointments and future orders which are active, pending or scheduled. Future Appointments This section includes appointments that were scheduled to occur 6 months from the date of the Encounter, up to a maximum of 20 appointments. The data comes from all [facility]. Appointment Date/Time Appointment Type Appointme nt Facility Name August 06, 2024 01:00 PM AMBULATORY - MEDICINE [facility] Aug 12, 2024 10:00 AM AMBULATORY - MEDICINE [facility] Aug 26, 2024 10:00 AM AMBULATORY - MEDICINE [facility] Sep 18, 2024 11:00 AM AMBULATORY - MEDICINE [facility] Oct 12, 2024 03:15 PM AMBULATORY - MEDICINE [facility] Social History: Smoking Status (Most current) and Tobacco Use (All prior to encounter date) This section includes the most current, and the historical, smoking and tobacco- related health factors from the [place] facility where the Encounter took place. Current Smoking Status This section includes the most current smoking, or tobacco-related health factor, from the [place] facility where the Encounter took place. Date/Time Current Smoking Status Comment Facil ity Jan 30, 2023 03:14 PM VA-TOBACCO FORMER USER [facility] Tobacco Use History This section includes a history of the smoking, or tobacco-related health factors, that were collected on or before the date of the Encounter. The data comes from the [place] facility where the Encounter took place. Date/Time Smoking Status/Tobacco Use Comment F acility Jan 30, 2023 03:14 PM VA-TOBACCO QUIT 5 TO < 15 YRS [facility] Nov 04, 2017 09:12 AM QUIT TOBACCO >12 M O & <7 YRS AGO [facility] Encounter Notes: All associated encounter notes This section contains the clinical notes associated to the Encounter. Date/Time Encounter Note(s) Provider Source August 03, 2024 05:32 PM NONVA NOTE: LOCAL TITLE: [facility] CARE COORD PLAN STANDARD TITLE: NONVA NOTE DATE OF NOTE: AUGUST 03, 2024@17:32 ENTRY DATE: AUGUST 05, 2024@17:33:03 AUTHOR: FREDRICKOLIVA RANDA COSIGNER: URGENCY: STATUS: COMPLETED Emergency Notification Intake Date Presenting to the Facility: July Method of Contact: Notified from ECR worklist Notification ID: [id number] HSRM Referral #: [id number] Clinical Review Community [facility] Name: Hospital: [facility] Address: [address] [place] [address] City: [place] State: [place] Zip Code: [address] [facility] Facility Point of Contact: Name: Chief complaint: hypertension Primary Diagnosis: Essential hypertension Disposition Discharged Date of discharge: July Discharge to home Records r/t this episode of care can be found in [facility]. Please review attached DC summary and place any necessary referrals/consults CINDY to avoid non-payment for follow-up services. /debi/ OLIVA ALCALA ADVANCED CONTRACTS REPRESENTATIVE Signed: 08/05/2024 17:37 Receipt Acknowledged By: 08/06/2024 13:01 /debi/ USAMA LOPEZ Staff Physician 08/06/2024 08:11 /es/ Hardik Fuchs Rn, BSN REGISTERED NURSE [facility]
--- OUTSIDE RECORDS SUMMARY | 2024-08-22 21:51 | XMS_ITS | Encounter Summary ---
Author Name [facility] [place] [facility] [place] [facility] [place] Address [address] [place] [address] Care Team Providers Care Hand Candy Cutter Name Role Phone USAMA LOPEZ Primary Care [...] TER & EMPLO YERS Mar 11, 2018 [id number] [phone] AXEL MULTANI SPOUSE [place] PREFERRED PROVIDER ORGANIZAT ION (PPO) TEAMS TER + EMPLO YERS Mar 11, 2018 [id number] [phone] AXEL MULTANI SPOUSE LDI RX PRESCRIPT ION TEAMS TER & EMPLO YERS Mar 11, 2018 [id number] [phone] GAYLA MULTANI SPOUSE Selected Encounter This section includes the information on record at [place] for the Encounter. Date/Time Encounter Type Encounter Description Reason Pro vider Source Jan 28, 2024 11:50 AM Outpatient Encounter GENERAL INTERNAL MEDICINE IHE Encounter Template Text not used by [place] Plan of Treatment: Future Appointments (+ 6 months) and Future Tests (+/- 45 days) The Plan of Treatment section includes future care activities for the patient from all [place] treatmentfacilities. This section includes future appointments and [...] AMBULATORY - MEDICINE [facility] Feb 25, 2024 11:30 AM AMBUL[facility]ORY - NONE [facility] Mar 17, 2024 09:30 AM AMBULATORY - MEDICINE [facility] Mar 23, 2024 12:30 PM [facility]INE [facility] Apr 09, 2024 11:00 AM [facility] Apr 14, 2024 03:30 PM [facility] Apr 21, 2024 08:30 AM AMBULATORY [facility] Apr 22, 2024 11:30 AM AMBULATORY - NONE [facility] Apr 28, 2024 11:00 AM AMBULATORY - MEDICINE [facility] May 26, 2024 11:00 AM AMBULATORY - MEDICINE [facility] Jun 12, 2024 02:00 PM AMBULATORY - MEDICINE [facility] Jun 15, 2024 02:00 PM [facility]ULATORY [facility]ONE [facility] Jun 17, 2024 11:00 AM AMBULATORY - MEDICINE [facility] Jun 24, 2024 11:00 AM AMBULATORY - MEDICINE [facility] Jun 24, 2024 02:00 PM [facility]INE [facility] Jul 08, 2024 10:00 AM AMBULATORY - MEDICINE [facility] Social History: Smoking Status (Most current) [...] 30, 2023 03:14 PM VA-TOBACCO FORMER USER [facility] Tobacco Use History This section includes a history of the smoking, or tobacco-related health factors, that were collected on or before the date of the Encounter. The data comes from the [place] facility where the Encounter took place. Date/Time Smoking Status/Tobacco Use Comment F acility Jan 30, 2023 03:14 PM VA-TOBACCO QUIT 5 TO < 15 YRS [facility] Nov 04, 2017 09:12 AM QUIT TOBACCO >12 M O & <7 YRS AGO [facility] Encounter Notes: All associated encounter notes This section contains the clinical notes associated to the Encounter. Date/Time Encounter Note(s) Provider Source Jan 28, 2024 11:50 AM NONVA NOTE: [facility] TITLE: COMMUNITY CARE-CARE COORDINATION PLAN NOTE [address] [facility] STANDARD TITLE: NONVA NOTE DATE OF NOTE: JAN 28, 2024@11:50 ENTRY DATE: JAN 28, 2024@11:50:13 AUTHOR: GIANNI BABCOCK EXP COSIGNER: URGENCY: STATUS: COMPLETED Vertans Name, and SSN verified. called into [facility] to inform us of a couple appts. She has an OB appt on 02/13 @535 and a Cardio appt on 02/17 @4343. Team alerted to appts. /debi/ GIANNI NAJERA Advanced Advertising Dispatch Clerks Supervisor Signed: 01/28/2024 11:52 GIANNI BABCOCK [facility]
--- OUTSIDE RECORDS SUMMARY | 2024-08-22 21:51 | XMS_ITS | Encounter Summary ---
Author Organization [facility] Address [address] [place] [address] Care Team Providers Care Pit Supervisor Name Role Phone Unknown, Notinfile Primary Care Provider Unavail able Bertha Barker MD Unavailable Amy Chiang Unavailable Unavailable Angel Horan MD Unavailable Encounter Details Date Type Department Care Team (Late st Contact Info) Description 07/01/2024 Results Follow-Up [facility] [address] [place] [address] [address] [place] [address] Angel Horan MD [address] [place] [address] [address] [place] [address] Protein / creatinine ratio, urine, random Social History Tobacco Use Types Packs/Day Years Used Date Smoking Tobacco: Never Smokeless Tobacco: Never Social Connection and Isolat ion Panel [NHANES] Answer Date Recorded In a typical week, how many times do you talk on the phone with family, friends, or neighbors? More than three times a week 06/30/2024 How often do you get togethe r with friends or relatives? More than three times a week 06/30/2024 How often do you attend chur ch or taoism services? Patient declined 06/30/2024 Do you belong to any clubs o r organizations such as synagogue groups, unions, fraternal or athletic groups, or school groups? Patient declined 06/30/2024 How often do you attend meet ings of the clubs or organizations you belong to? Patient declined 06/30/2024 Are you , , di vorced, , never , or living with a partner? Patient declined 06/30/2024 AUDIT-C Answer Date Recorded Q1: How often do you have a drink containing alcohol? Never 06/30/2024 Q2: How many drinks containi ng alcohol do you have on a typical day when you are drinking? Patient does not drink Q3: How often do you have si x or more drinks on one occasion? Never 06/30/2024 Overall Financial Resource Strain (CARDIA) Answe r Date Recorded How hard is it for you to pa y for the very basics like food, housing, medical care, and heating? Not hard at all 06/30/2024 PHQ-2 Answer Date Recorded PHQ-2 Total Score (If total score is 3 or more points, staff should administer the PHQ-9) 0 06/30/2024 [facility] - Occupational Stress Questionnaire Answer Date Recorded Do you feel stress - tense, restless, nervous, or anxious, or unable to sleep at night because your mind is troubled all the time - these days? Not at all 06/30/2024 Exercise Vital Sign Answer Date Recorde d On average, how many days pe r week do you engage in moderate to strenuous exercise (like a brisk walk)? Patient declined On average, how many minutes do you engage in exercise at this level? Patient declined 06/30/2024 Hunger Vital Sign Answer Date Recorded Within the past 12 months, y ou worried that your food would run out before you got the money to buy more. Never true 07/01/19 25 Within the past 12 months, t he food you bought just didn't last and you didn't have money to get more. Never true 06/30/2024 PRAPARE - Transportation Answer Date Re corded In the past 12 months, has l ack of transportation kept you from medical appointments or from getting medications? No 06/10 In the past 12 months, has l ack of transportation kept you from meetings, work, or from getting things needed for daily living? No 06/30/2024 Housing Stability Vital Sign Answer Shay e Recorded In the last 12 months, was t here a time when you were not able to pay the mortgage or rent on time? No 06/30/2024 In the past 12 months, how m any times have you moved where you were living? 0 06/30/2024 At any time in the past 12 m [facility], were you homeless or living in a correction (including now)? No 06/30/2024 Personal Safety Answer Date Recorded Have you ever been in or are you currently in a harmful physical or emotional relationship or is someone making you feel afraid or unsafe? Denies 06/30/2024 Comments Yes Sex and Gender Information Value Date Recorded Sex Assigned at Not on file Legal Sex Female 12:27 PM CDT Gender Identity Not on file Sexual Orientation Not on file documented as of this encounter Plan of Treatment Not on file documented as of this encounter Visit Diagnoses Not on filedocumented in this encounter Care Teams Pit Supervisor Relationship Specialty Start Date End Date Unknown, Notinfile PCP - General 10/10/22 Bertha Barker MD [address] [address] Consulting Physician Cardiology 04/09/24 Amy Chiang Primary Bariatric Coordinator 04/09/24 Angel Horan MD [address] [place] [address] [place] [id number] Sap Ppm Consultant Obstetrics and Gynecology 07/26/24 documented as of this encounter
--- OUTSIDE RECORDS SUMMARY | 2024-08-22 21:51 | XMS_ITS | Referral Summary ---
Author Organization [facility] Address [address] [place] [address] Phone Care Team Providers Care Folder And Notcher Name Role Phone Unknown, Notinfile Primary Care Provider Unavail able Bertha Barker MD Unavailable [phone] Amy Chiang Unavailable Unavailable Angel Horan MD Unavailable [phone] Encounters Date Type Department Care Team Description 08/09/2024 [facility] Post Discharge Follow up phone call [facility] [address] [place] [address] Iveth Berry RN 08/07/2024 11:45 AM CDT Office Visit Jaylenenaima STROUD [employer] [address] [place] [address] [address] [place] [phone] Angel Horan MD hypertension (Primary Dx) 08/06/2024 Telephone [place] [facility] [employer] [address] [place] [address] [address] [place] [phone] Angel Horan MD 08/05/2024 Results Follow-Up [address] [place] [phone] Angel Horan MD F5 (FVL) and F2 (Prothrombin) Mutations 08/04/2024 Telephone [place] [employer] [address] [place] [address] [address] [place] [phone] Bee Friedman RN EKG Result 08/04/2024 11:00 AM CDT Office Visit Jaylenenaima STROUD [employer] [address] [facility] [address], [place] [address] Angel Horan MD Blood pressure check (Primary Dx) 08/03/2024 11:50 PM CDT - 08/04/2024 4:24 AM CDT Emergency [facility] Emergency Department 1 [place] [address] Hardik Bain MD Essential hypertension (Primary Dx); Acute cystitis with hematuria Discharge Disposition: Discharge to home or self care 07/30/2024 2:54 PM CDT - 08/01/2024 1:05 PM CDT Hospital Encounter [address] [phone] Leona Petit MD Sauer, Megan Elizabeth, DO Talsky, Joseph Mark, MD hypertension (Primary Dx); Single subsegmental pulmonary embolism without acute cor pulmonale (HCC) [I26.93]; Acute nonintractable headache, unspecified headache type [R51.9]; Fever, unspecified fever cause [R50.9] Discharge Disposition: Discharge to home or self care 07/30/2024 4:13 AM CDT - 07/30/2024 8:45 AM CDT Emergency [facility] Emergency Department 1 [place] [address] Kelly Oviedo MD Zozula, Killian Palacios MD Acute pulmonary embolism without acute cor pulmonale, unspecified pulmonary embolism type (HCC) (Primary Dx); ABLA (acute blood loss anemia); Elevated blood pressure reading Discharge Disposition: Discharge to home or self care 07/29/2024 Telephone [place] [employer] [address] [place] [address] [place] [phone] Sweta Zarate MA EPCOLIN 07/29/2024 10:00 AM CDT Clinical Support [place] [employer] [address] [place] [address] [address], [place] [address] Encounter for staple removal (Primary Dx) 07/28/2024 12:45 PM CDT Telemedicine [facility] Cardiology [address] [place] [address] Bertha Barker MD Diastolic dysfunction (Primary Dx) 07/27/2024 Telephone [place] [facility] [employer] [address] [place] [address] [address] [place] [address] Angel Horan MD 07/26/2024 Orders Only [address] [address] Lisa Uribe DO 07/24/2024 5:18 AM CDT - 07/26/2024 2:15 PM CDT Hospital Encounter [address] [address] Angel Horan MD delivery delivered [O82] (Primary Dx); Previous section; Encounter for sterilization; 39 weeks gestation of [Z3A.39] Discharge Disposition: Discharge to home or self care 07/24/2024 8:00 AM CDT Anesthesia Event [facility] [address] [address] Chris Fernandez MD 07/24/2024 7:30 AM CDT - 07/24/2024 9:00 AM CDT Surgery [facility] and [address] [address] Angel Horan MD REPEAT SECTION WITH BILATERAL SALPINGECTOMY 07/20/2024 1:00 PM CDT Office Visit Jaylenenaima STROUD [employer] [address] [place] [address] [place] [phone] Angel Horan MD Encounter for supervision of other normal in third trimester (Primary Dx); 38 weeks gestation of 07/13/2024 1:15 PM CDT Office Visit [place] STR[facility] [employer] [address] [place] [address] [address] [place] [address] Angel Horan MD Encounter for supervision of normal first in third trimester (Primary Dx); 37 weeks gestation of ; History of delivery 07/03/2024 Telephone [place] [facility] [address] [place] [phone] Bee Friedman RN Severe Anxiey 07/02/2024 [facility] [address] [place] [phone] Bee Friedman RN General Surgery Appt 07/01/20[facility] [address] [place] [address] Bee Friedman RN Severe Hemorrhoid Pain 07/01/2024 Results Follow-Up [address], [place] [phone] Angel Horan MD Protein / creatinine ratio, urine, random 06/30/[address] [place] [phone] Bee Friedman RN Anusol Cream 06/30/2024 1:19 AM CDT - 06/30/2024 4:31 AM CDT Emergency [facility] 1 [place] [address] Nuria Mckenna MD Discharge Disposition: Discharge to home or self care 06/29/2024 2:20 PM CDT Lab [address] Proteinuria affecting in third trimester 06/29/2024 1:30 PM CDT Office Visit [address] [place] [phone] Angel Horan MD Encounter for supervision of other normal in third trimester (Primary Dx); 35 weeks gestation of ; External hemorrhoids; Proteinuria affecting in third trimester 06/25/[address] [place] [phone] Bee Friedman RN Referral for DE, General Surgery 06/24/2024 Telephone [place] [facility] [address] [place] [address] [address] [place] [phone] Fatuma Skinner MA 06/24/[address] [place] [address] Markie Avendaño MD 06/23/2024 8:30 AM CDT Office Visit [address] [place] [address] Markie Avendaño MD RUQ pain 06/17/[address] [place] [address] Bee Friedman, RN Glucometer 06/16/2024 3:45 PM CDT Office Visit [address] [place] [address] Angel Horan MD Encounter for supervision of other normal in third trimester (Primary Dx); 33 weeks gestation of 06/16/2024 3:00 PM CDT Ancillary Procedure [address] [place] [address] Uterine size-date discrepancy in third trimester; BMI 39.0-39.9,adult 06/05/2024 8:00 AM CDT Office Visit [address] [place] [address] Angel Horan MD Encounter for supervision of other normal in third trimester (Primary Dx); 32 weeks gestation of ; Uterine size-date discrepancy in third trimester; BMI 39.0-39.9,adult from Last 3 Months Allergies Active Allergy Reactions Criticality Noted Date Comments Amoxicillin Unknown 11/02/2016 Gets yeast infections Duloxetine Diarrhea,Nausea And Vomiting Low 10/10/2017 Latex Rash Medium 01/17/2024 Medications vit 52-ehbv-xyhyr- dha 27mg iron- 800 mcg-250 mg capsule [...] lancets with 2 refills 1 kit 06/18/19 Active hydrocortisone 2.5 % cream Apply topically [...] total) by mouth daily 30 tablet 5 03/23/192024 Discontinued(S top Taking at Discharge) furosemide (Lasix) 20 mg tablet Take 0.5 tablets (10 mg total) by mouth daily as needed (for fluid retention) Call our office before using. 10 tablet 04/21/192024 Discontinued(S top Taking at Discharge) lidocaine jelly (XYLOCAINE) 2 % Apply topically as needed for pain (discomfort) 45 mL 07/03/19 25 2024 Discontinued(S top Taking at Discharge) docusate sodium (COLACE) 100 mg capsuleIndicat ions:constipat ion,Stool Softener Take 1 capsule (100 mg total) by mouth 2 (two) times a day 60 capsule 1 07/27/19 25 2024 Discontinued HYDROcodone-ac etaminophen (NORCO) 5-325 mg per tabletIndicati ons:Pain Take 1 tablet by mouth every 6 (six) hours as needed for pain 20 tablet 07/27/19 25 2024 Discontinued ibuprofen (ADVIL,MOTRIN) 600 mg tabletIndicati ons:Pain [...] Lasix. Assessment & Plan (01/17/2024 8:29 PM SUPERVISOR PREP): Induced and then readmitted for preeclampsia first . PP pulmonary edema, CHF, treated with Lasix. Recommend ASA 81 mg daily until 37 wks. Primary done, PPH with one unit PRBCs; baby delivered abdominally by forceps with facial laceration. History of delivery 01/17/2024 History of PCOS 01/17/2024 Multigravida of advanced maternal age in third t rimester 01/17/2024 Assessment & Plan (01/17/2024 8:35 PM SUPERVISOR PREP): Discussed increased risk autosomal trisomies with age.. She desires cell free DNA testing. Rh negative state in antepartum period 4 Resolved Problems Problem Noted Date Diagnosed Date Resolved Date Placenta previa in second trimester 03/20/2024 05/15/2024 Overview (05/15/2024): Posterior on anatomy sono. Resolved 05/15/24. Immunizations Immunization Administration Dates Next Due Influenza, Trivalent, Preser vative Free, Intramuscular 02/14/2024 Varicella 06/16/2024(Deferred: Patient Ref used) Social History Tobacco Use Types Packs/Day Years [...] week 07/24/2024 How often do you attend [facility] or buddhism services? Patient declined 07/24/2024 Do you belong to any clubs o r organizations such as protestant groups, unions, fraternal or athletic groups, or [...] staff should administer the PHQ-9) 0 07/24/2024 [facility] - Occupational Stress [...] things needed for daily living? No 07/24/2024 [place] Depression Scale Answer Date Recorded [place] Depression Scale Total 8 07/29/2024 The thought [...] were you homeless or living in a [place] facility (including now)? No 07/24/2024 Personal Safety Answer [...] 08/03/2024 11:43 PM CDT Plan of Treatment Not on file Procedures Procedure Name Priority Date/Time Associated Diagnosis [...] CDT PROTIME-INR STAT 07/31/2024 1:36 PM CDT [facility] ILL/INJURED PATIENT INIT 30-74 MIN Routine 07/30/2024 4:[address] HEAD WO CONTRAST ED 07/30/2024 4 :06 PM CDT ECG 12-LEAD STAT 07/30/2024 3:38 PM CDT XR CHEST 1 VIEW ED 07/30/2024 3:31 PM CDT [facility] CRITICAL CARE ILL/INJURED PATIENT INIT 30-74 MIN [...] TO HPV GENOTYPES Routine 01/17/2024 4:25 PM SUPERVISOR PREP Encounter for supervision of other normal in first trimester HEPATITIS C ANTIBODY Routine 01/17/2024 3:07 PM SUPERVISOR PREP Encounter for supervision of other normal in first trimester from Last 3 Months or Most Recently Relevant to Health Maintenance Results * ECG 12 lead (08/04/2024 12:29 AM CDT) 08/04/2024 12:2 9 AM CDT Narrative [facility] - 08/04/2024 9:56 AM CDT Vent Rate: 50 bpm RR Interval: 1194 msec GA Interval: 155 msec QRS Duration: 90 msec QT Interval: 412 msec QTC Interval: 385 msec P-R-T [place]: 33 - 32 - 23 degrees IMPRESSION: SINUS BRADYCARDIA WITH MARKED SINUS ARRHYTHMIA BORDERLINE ECG Compared to prior EKG heart rate decreased Electronically Signed By: Mike Loja MD [facility] Hardik Bain MD ECG ORDERABLES Final Result Performing Organization Address City/[facility] Co de Phone Number [facility] [place] [facility] * Troponin T high-sensitivity series (baseline, 2hr, [...] BLOOD ORDERABLES Final R esult JOHN MULLER ([place]) [address] [facility] Department [place] [address] * (ABNORMAL) Urinalysis reflex to microscopic and culture Urine (08/04/2024 12:26 AM CDT) Color, ur Straw Yellow Clarity, ur Clear Clear CERNER A ([place]) Specific gravity, ur 1.005 1.003 - [...] tendency for uric acid stone formation. Source: [facility] [employer] Current Interpretive Data was last revised on 2017 Protein, ur ql Negative Negative [facility] ([place]) Glucose, ur ql Negative Negative [facility] ([place]) Ketones, ur Negative Negative [facility]ER A [facility] ([place]) Bilirubin, ur Negative Negative [facility] ([place]) Blood, ur 1+(A) Negative [facility] ([place]) Urobilinogen, ur <2.0 <2.0 mg/dL [facility] ([place]) Nitrite, ur Negative Negative [facility]ER A ([place]) Leukocyte esterase, ur 4+(A) Negative [facility] ([place]) UA reflex comment Reflex to microscopic UA will be performed. [facility] Urine 08/04/2024 12:2 6 AM CDT 08/04/2024 12:36 AM CDT Hardik Bain MD LAB MICROBIOLOGY - GENERAL O RDERABLES Final Result [facility] ([place]) [address] [facility] Department [place] [address] * (ABNORMAL) Urinalysis, microscopic only (08/04/2024 12:26 AM CDT) WBC, ur 11-20(A) 0 - 5 /HPF RBC, ur 6-10(A) 0 - 2 /HPF [facility] ([place]) Epithelial cells, squamous, ur 1-5 0 - 5 /HPF [facility] ([place]) Bacteria, ur 3+(A) [facility] ([place]) Mucous, ur Present(A) JOHN Don ([place]) Culture Reflex Comment Reflex to urine culture will be performed. JOHN [facility] ([place]) Urine 08/04/2024 12:2 6 AM CDT 08/04/2024 12:36 AM CDT Hardik Bain MD LAB URINE ORDERABLES Final R esult Performing Organization Address City/[facility]/ZIP Co de Phone Number [facility] ([place]) [address] [facility] Department [place] [address] * Urine culture Urine (08/04/2024 12:26 AM CDT) Report Final Report: No growth Comment:Testing performed by : [facility], [address] [facility] [place] [address] Urine 08/04/2024 12:2 6 AM CDT 08/04/2024 3:22 AM CDT Narrative JOHN [facility] ([place]) - 08/05/2024 7:20 AM CDT Urine culture reflexed based upon urinalysis results. Testing performed by [facility] Microbiology Laboratory ([phone]) Hardik Bain MD LAB MICROBIOLOGY - GENERAL O RDERABLES Final Result Performing Organization Address [facility] Co de Phone Number JOHN [facility] ([place]) [address] [facility] Department [place] [address] * eGFR (08/04/2024 12:25 AM CDT) eGFR [...] LAB BLOOD ORDERABLES Final R esult [facility] ([place]) [address] [facility] Department [place] [address] * (ABNORMAL) Differential, auto (08/04/2024 12:25 AM CDT) Neutrophil abs 6.81(H) 1.50 - 6.50 K/cumm Imm gran abs 0.05 0.00 - 0.10 K/cumm [facility] ([place]) Lymphocyte abs 2.43 0.80 - 3.30 K/cumm [facility] ([place]) Monocyte abs 0.65 0.20 - 0.80 K/cumm [facility] ([place]) Eosinophil abs 0.34 0.00 - 0.50 K/cumm [facility] ([place]) Basophil abs 0.05 0.00 - 0.10 K/cumm [facility] ([place]) Neutrophil pct 65.9 % [facility] ([place]) Comment: Interpretive [...] LAB BLOOD ORDERABLES Final R esult [facility] ([place]) [address] [facility] Department [place] [address] * (ABNORMAL) CBC with auto differential (08/04/2024 12:25 AM CDT) WBC 10.33(H) 3.80 - 9.90 K/cumm Hgb 9.6(L) 11.9 - 15.5 g/dL [facility] ([place]) Hct 29.3(L) 35.6 - 45.5 % [facility] ([place]) Plt 492(H) 150 - 400 K/cumm [facility] ([place]) MPV 8.0(L) 9.1 - 12.3 fL JOHN [facility] ([place]) RBC 3.31(L) 3.90 - 5.20 M/cumm [facility] ([place]) MCV 88.5 81.3 - 96.4 fL [facility] ([place]) MCH 29.0 27.1 - 33.3 pg [facility] ([place]) MCHC 32.8 32.3 - 35.7 g/dL [facility] ([place]) RDW CV 12.6 11.1 - 14.9 % [facility] ([place]) RDW SD 41.2 35.7 - 48.1 fL [facility] ([place]) NRBC abs 0.00 0.00 - 0.01 K/cumm [facility] ([place]) Blood 08/04/2024 12:2 5 AM CDT 08/04/2024 12:36 AM CDT Hardik Bain MD LAB BLOOD ORDERABLES Final R esult Performing Organization Address City/[facility]/ZIP Co de Phone Number JOHN MULLER ([place]) 1 [facility] [place] [address] * (ABNORMAL) Uric acid (08/04/2024 12:25 AM CDT) Uric acid 8.3(H) 2.5 - 7.0 mg/dL Blood 08/04/2024 12:2 5 AM CDT 08/04/2024 12:36 AM CDT Hardik Bain MD LAB BLOOD ORDERABLES Final R esult Performing Organization Address City/[facility] Co de Phone Number JOHN MULLER ([place]) 1 [facility] [place] [address] * Magnesium (08/04/2024 12:25 AM CDT) Magnesium 1.8 1.4 - 2.5 mg/dL Blood 08/04/2024 12:2 5 AM CDT 08/04/2024 12:36 AM CDT Hardik Bain MD LAB BLOOD ORDERABLES Final R esult JOHN MULLER ([place]) 1 [facility] [place] [address] * Lactate dehydrogenase (LD) (08/04/2024 12:25 AM CDT) Lactate dehydrogenase (LDH) 228 100 - 250 Units/L Blood 08/04/2024 12:2 5 AM CDT 08/04/2024 12:36 AM CDT Hardik Bain MD LAB BLOOD ORDERABLES Final R esult [facility] ([place]) 1 [facility] Department [place] [address] * (ABNORMAL) Comprehensive metabolic panel (08/04/2024 12:25 AM CDT) Sodium 139 135 - 145 mmol/L Potassium, pl 4.0 3.3 - 4.9 mmol/L [facility] ([place]) Chloride 101 97 - 110 mmol/L [facility] ([place]) CO2 23 22 - 32 mmol/L [facility] ([place]) Anion gap 15 2 - 15 mmol/L [facility] ([place]) BUN 16 6 - 25 mg/dL [facility] ([place]) Creatinine 0.87 0.60 - 1.10 mg/dL [facility] ([place]) Glucose 94 70 - 199 mg/dL [facility] ([place]) Comment: Interpretive Data Fasting glucose [...] LAB BLOOD ORDERABLES Final R esult [facility] ([place]) 1 [facility] Department [place] [address] * F5 (FVL) and F2 (Prothrombin) Mutations (07/31/2024 1:36 PM CDT) Pathologist [facility] Factor V Leiden F5 Normal Normal [facility] Comment:Testing performed by : [facility], [address] [place] [address]., [address] Factor V Leiden Interpretation The patient is negative for the Factor V Leiden mutation (F5:c.1601G>A, p.R534Q) with two copies of the normal allele. [facility] ([place]) Comment:Testing performed by : [facility], [address] [facility], [place]., [address] Prothrombin F2 Mutation Normal Normal [facility] ([place]) Comment:Testing performed by : [facility], [address] [place] [address], [place]., [address] Prothrombin F2 Interpretation The patient is negative for the prothrombin gene mutation (F2 c.*97G>A ([id number])) with two copies of the normal allele). [facility] ([place]) Comment:Testing performed by : [facility], [address] [facility] [place]., [address] FVL and Prothrombin Specimen Blood [facility] ([place]) Comment:Testing performed by : [facility], 1 [place]., [address] FVL and Prothrombin Result Review Final report reviewed by: Van Martin BA, MB([facility])CM, Family Practice Physician, on 08/05/2024 09:07:10 CDT. JOHN MULLER ([place]) Comment: Interpretive Data Testing was performed simultaneously [...] is recommended. Method: This assay utilizes the Planet Daily Xpert FII & FV qualitative in vitro diagnostic genotyping test for the detection of targeted FV and F2 alleles from sodium citrate or EDTA anticoagulated whole blood. This test is performed on the [employer] Dx System which automates and integrates sample purification, nucleic acid amplification, and detection of the target sequence in whole blood using real- time Polymerase Chain Reaction (PCR) assays based on Scorpion PCR technology. Note: F5 ([id number]):c.1601G>A, R534Q or Factor V Leiden is also referred to as c.1691G>A, p.R506Q in the literature. FDA statement: The Planet Daily Xpert FII & FV qualitative in vitro diagnostic genotyping test for use on specimens from adult populations. The mobile application tester did not evaluate testing on samples from pediatric patients (<18 years of age). The performance characteristics of this test on specimens from pediatric patients have been assessed by the [facility] and deemed acceptable for clinical reporting. The Stilnestid Xpert FII & FV genotyping test is FDA-cleared for testing unprocessed peripheral blood specimens containing either EDTA or sodium citrate. Processing of specimens submitted for reflex testing requires modifications from the mobile application tester's instructions. The performance characteristics of those modifications, if necessary, have been determined by [facility] in a manner consistent [...] to invalid or erroneous results. References: 1. Stilnestid Xpert Factor II and Factor V package insert. 301-0590, Rev. B. October 2016. 2. Shelley CALDERON, et al; [facility] Factor V Leiden Working Group. Erika Med. 2001. 3:139- 48. 3. SAVITA Andre, et al. Nature. 2020. 581:434 4 43 4. Lesli ZEPEDA. Factor V Leiden Thrombophilia. 1998July 22 [Updated 2018 Mar 14]. Available from: https://www.ncbi.nlm.nih.gov/books/HQC4708/ 5. Joe PM, et al. N Engl J Med. 1995. 332:912-17. 6. Haroldo ROSE and Delfina WIN. J Thromb Haemost. 2009. 7 Suppl 1:301 4 . 7. Hadley SOlivia, et al. Erika Med. 2018. 20:1489 1 498 This test was performed at: [facility], [facility], DEVONTE[address][id number], Lorelei Tucker, Ph.D., [place], [address], [place] Current interpretive data was last revised 2022. Testing performed by: [facility], [address] [facility], [place]., [address] Blood 07/31/2024 1:36 PM CDT 07/31/2024 4:59 PM CDT us Angel Horan MD LAB GENETIC TESTING Final Result JOHN MULLER ([place]) 1 [facility] Department [place] [address] [facility] * eGFR (07/31/2024 1:36 PM CDT) eGFR [...] ORDERABLES Final Result JOHN MULLER ([place]) 1 [facility] [place] [address] * (ABNORMAL) Protime-INR (07/31/2024 1:36 PM CDT) PT 14.3(H) 9.7 - 13.0 sec [facility] ([place] INR 1.32(H) 0.90 - 1.20 [facility] ([place]) Comment: Interpretive data Oral anticoagulant therapeutic ranges: Venous thromboembolism prophylaxis or treatment: 2.0-3.0 CARDIOLOGY Standard range: 2.0-3.0 High-intensity range: 2.5-3.5 Refer to indication-specific guidelines for appropriate target ranges for prosthetic heart valve replacement. Current interpretive data was last revised on 2019. Blood 07/31/2024 1:36 PM CDT 07/31/2024 1:43 PM CDT Narrative JOHN MULLER ([place]) - 07/31/2024 3:02 PM CDT Baseline prior to rivaroxaban initiation us Lisa Uribe DO LAB BLOOD ORDERABLES Fi nal Result JOHN [facility]) 1 [facility] Department [place] [address] * (ABNORMAL) CBC without differential (07/31/2024 1:36 PM CDT) WBC 10.34(H) 3.80 - 9.90 K/cumm Hgb 9.4(L) 11.9 - 15.5 g/dL [facility] ([place]) Hct 28.3(L) 35.6 - 45.5 % [facility] ([place]) Plt 446(H) 150 - 400 K/cumm [facility] ([place]) MPV 8.4(L) 9.1 - 12.3 fL [facility] ([place]) RBC 3.27(L) 3.90 - 5.20 M/cumm [facility] ([place]) MCV 86.5 81.3 - 96.4 fL [facility] ([place]) MCH 28.7 27.1 - 33.3 pg JOHN [facility] ([place]) MCHC 33.2 32.3 - 35.7 g/dL [facility] ([place]) RDW CV 12.8 11.1 - 14.9 % [facility] ([place]) RDW SD 40.1 35.7 - 48.1 fL [facility] ([place]) NRBC abs 0.00 0.00 - 0.01 K/cumm [facility] ([place]) Blood 07/31/2024 1:36 PM CDT 07/31/2024 1:43 PM CDT Narrative [facility] ([place]) - 07/31/2024 1:57 PM CDT Baseline prior to rivaroxaban initiation us Lisa Uribe DO LAB BLOOD ORDERABLES Fi nal Result Performing Organization Address City/[facility]/ZIP Co de Phone Number [facility] [place] ([place]) 1 [facility] [place] [address] * (ABNORMAL) Magnesium (07/31/2024 1:36 PM CDT) Magnesium 5.0(C) 1.4 - 2.5 mg/dL Comment:Critical Result call ed by [email or web address] at 2024-07-31 17:08:05. Result Read Back by Darcie Veloz RN L&D Blood 07/31/2024 1:36 PM CDT 07/31/2024 4:29 PM CDT us Angel Horan MD LAB BLOOD ORDERABLES Final Result [facility] [place] ([place]) 1 [facility] [place] [address] * (ABNORMAL) Hepatic function panel (07/31/2024 1:36 PM CDT) Bilirubin, total 0.3 0.1 - 1.2 mg/dL Bilirubin, direct 0.1 0.1 - 0.3 mg/dL [facility] [place] ([place]) Protein, pl 7.0 6.5 - 8.5 g/dL [facility] ([place]) Albumin 3.6 3.5 - 5.0 g/dL [facility] ([place]) Alk phos 170(H) 40 - 130 Units/L [facility] ([place]) ALT 16 7 - 45 Units/L [facility] ([place]) AST 21 10 - 45 Units/L [facility] ([place]) Blood 07/31/2024 1:36 PM CDT 07/31/2024 1:43 PM CDT Narrative [facility] ([place]) - 07/31/2024 2:27 PM CDT Baseline prior to rivaroxaban initiation Lisa Uribe DO LAB BLOOD ORDERABLES Fi nal Result [facility] ([place]) 1 [facility] Department [place] [address] * (ABNORMAL) Basic metabolic panel (07/31/2024 1:36 PM CDT) Sodium 139 135 - 145 mmol/L Potassium, pl 3.4 3.3 - 4.9 mmol/L [facility] ([place]) Chloride 97 97 - 110 mmol/L [facility] ([place]) CO2 26 22 - 32 mmol/L [facility] ([place]) Anion gap 16(H) 2 - 15 mmol/L [facility] ([place]) BUN 8 6 - 25 mg/dL [facility] ([place]) Creatinine 0.79 0.60 - 1.10 mg/dL [facility] ([place]) Glucose 113 70 - 199 [...] classification and Diagnosis of Diabetes Diabetes Care 202; 46: S19-S40. Current interpretive data was last revised 2022. Calcium 8.1(L) 8.5 - 10.3 mg/dL [facility] ([place]) Blood 07/31/2024 1:36 PM CDT 07/31/2024 1:43 PM CDT us Angel Horan MD LAB BLOOD ORDERABLES Final Result JOHN [facility] ([place]) 1 [facility] [place] [address] * GA CRITICAL CARE ILL/INJURED PATIENT INIT 30-74 MIN [...] Jez Long M.D. AG: GUANAKO Report ID: [id number] Reading Location: [id number] Procedure Note Jez Long MD - 07/30/2024 [...] Jez Long M.D. AG: GUANAKO Report ID: [id number] Reading Location: [id number] Leona Petit MD IMG CT PROCEDURES Final Re sult * ECG 12 lead (07/30/2024 3:38 PM CDT) 07/30/2024 3:38 PM CDT Narrative [facility] - 07/30/2024 3:50 PM CDT Vent Rate: 72 bpm RR Interval: 833 msec GA Interval: 164 msec QRS Duration: 102 msec QT Interval: 363 msec QTC Interval: 386 msec P-R-T [place]: 62 - 39 - 30 degrees IMPRESSION: SINUS RHYTHM NORMAL ECG NO CHANGE FROM PREVIOUS TRACING NOTED Electronically Signed By: Juwan Chery MD Leona Petit MD ECG ORDERABLES Final Resu lt [facility] * XR Chest 1 Vw Portable (07/30/2024 [...] 4:03 PM - Electronically signed by Lakhwinder NewellD. JR: Report ID: [id number] Reading Location: [id number] Procedure Note Lakhwinder Shanks MD - 07/30/2024 [...] by Lakhwinder Shanks M.D. JR: Report ID: [id number] Reading Location: [id number] us Leona Petit MD IMG XR PROCEDURES Final Re sult * GA CRITICAL CARE ILL/INJURED PATIENT INIT 30-74 MIN [...] S Final Result [facility] ([place]) 1 [facility] [place] [address] * Protime-INR (07/30/2024 6:29 AM CDT) PT 10.5 9.7 - 13.0 sec [facility] ([place]) INR 0.97 0.90 - 1.20 [facility] ([place]) Comment: Interpretive data Oral anticoagulant therapeutic ranges: Venous thromboembolism prophylaxis or treatment: 2.0-3.0 CARDIOLOGY Standard range: 2.0-3.0 High-intensity range: 2.5-3.5 Refer to indication-specific guidelines for appropriate target ranges for prosthetic heart valve replacement. Current interpretive data was last revised on 2019. Blood 07/30/2024 6:29 AM CDT 07/30/2024 6:32 AM CDT Narrative [facility] ([place]) - 07/30/2024 6:42 AM CDT Baseline prior to rivaroxaban initiation us Killian Paul MD LAB BLOOD ORDERABLE S Final Result [facility] ([place]) 1 [facility] Department [place] [address] * (ABNORMAL) Urinalysis reflex to microscopic and culture Urine (07/30/2024 5:54 AM CDT) Color, ur Straw Yellow Clarity, ur Clear Clear [facility] ([place]) Specific gravity, ur 1.008 1.003 - 1.030 [facility] ([place]) pH, [...] tendency for uric acid stone formation. Source: [facility] [employer] Current Interpretive Data was last revised on [...] will be performed. [facility] ([place]) Urine 07/30/2024 5:54 AM CDT 07/30/2024 5:56 AM CDT Kelly Oviedo MD LAB MICROBIOLOGY - GENERAL ORDERABLES Final Result JOHN [facility] ([place]) 1 [facility] Department [place] [address] * (ABNORMAL) Urinalysis, microscopic only (07/30/2024 5:54 AM CDT) WBC, ur 0-5 0 - 5 /HPF RBC, ur 0-2 0 - 2 /HPF [facility] ([place]) Epithelial cells, squamous, ur 1-5 0 - 5 /HPF [facility] ([place]) Bacteria, ur 2+(A) [facility] ([place]) Mucous, ur Present(A) [facility] A ([place]) Culture Reflex Comment Reflex conditions for urine culture (WBC >10) not met. JOHN [facility] ([place]) Urine 07/30/2024 5:54 AM CDT 07/30/2024 5:56 AM CDT Kelly Oviedo MD LAB URINE ORDERABLE S Final Result Performing Organization Address [facility] Co de Phone Number JOHN [facility] ([place]) 1 [facility] [place] [address] * CT Chest PE (CTA) W Contrast [...] Nick Patton M.D. RB: SHONDA Report ID: [id number] Reading Location: [id number] Procedure Note Nick Patton MD - 07/30/2024 [...] Nick Patton M.D. RB: SHONDA Report ID: [id number] Reading Location: [place] [address] Kelly Oviedo MD IMG CT PROCEDURES F [...] Nick Patton M.D. RB: RB Report ID: [id number] Reading Location: [id number] Procedure Note Nick Patton MD - 07/30/2024 [...] Nick Patton M.D. RB: RB Report ID: [id number] Reading Location: [id number] Kelly Oviedo MD IMG XR PROCEDURES F [...] BLOOD ORDERABLE S Final Result [facility] ([place]) 1 [facility] Department [place] [address] * eGFR (07/30/2024 4:40 AM [...] BLOOD ORDERABLE S Final Result JOHN [facility] ([place]) 1 [facility] [place] [address] * Differential, auto (07/30/2024 4:40 AM CDT) Neutrophil abs 5.46 1.50 - 6.50 K/cumm Imm gran abs 0.06 0.00 - 0.10 K/cumm [facility] ([place]) Lymphocyte abs 2.24 0.80 - 3.30 K/cumm [facility] ([place]) Monocyte abs 0.66 0.20 - 0.80 K/cumm [facility] ([place]) Eosinophil abs 0.20 0.00 - 0.50 K/cumm [facility] ([place]) Basophil abs 0.05 0.00 - 0.10 K/cumm [facility] ([place]) Neutrophil pct 63.0 % [facility] ([place]) Comment: Interpretive Data Percent cell count reference ranges are not reported, since discordance with absolute values may lead to misinterpretation of CBC data. Current Interpretive Data was last revised on 2017. Imm gran pct 0.7 % [facility] ([place]) Comment: Interpretive Data Percent cell count reference [...] Eosinophil pct 2.3 % [facility] ([place]) Comment: Interpretive Data Percent cell count reference ranges are not reported, since discordance with absolute values may lead to misinterpretation of CBC data. Current Interpretive Data was last revised on 2017. Basophil pct 0.6 % [facility] ([place]) Comment: Interpretive Data Percent cell count reference ranges are not reported, since discordance with absolute values may lead to misinterpretation of CBC data. Current Interpretive Data was last revised on 2017. Blood 07/30/2024 4:40 AM CDT 07/30/2024 4:57 AM CDT us Kelly Oviedo MD LAB BLOOD ORDERABLE S Final Result JOHN [place] ([place]) 1 [facility] Department [place] [address] * (ABNORMAL) Pro B-type natriuretic peptide (07/30/2024 [...] MD LAB BLOOD ORDERABLE S Final Result [facility] ([place]) 1 [facility] [place] [address] * (ABNORMAL) CBC with auto differential (07/30/2024 [...] BLOOD ORDERABLE S Final Result JOHN [place] ([place]) 1 [facility] [place] [address] * Antibody identification (07/30/2024 4:40 AM CDT) Antibody Identification Interpretation Passive Anti-D Blood 07/30/2024 4:40 AM CDT 07/30/2024 4:57 AM CDT Kelly Oviedo MD LAB BLOOD BANK TEST ORDERABLES Final Result [facility] [place] ([place]) 1 [facility] [place] [address] * ABO/Rh (07/30/2024 4:40 AM CDT) ABO/Rh O Negative Blood 07/30/2024 4:40 AM CDT 07/30/2024 4:57 AM CDT Narrative JOHN [facility] ([place]) - 07/30/2024 9:53 AM CDT Has the patient had Daratumumab or Isatuximab in the past 6 months?->Unknown Kelly Oviedo MD LAB BLOOD BANK TEST ORDERABLES Final Result Performing Organization Address City/[facility]/ZIP Co de Phone Number JOHN [place] ([place]) 1 [facility] [place] [address] * (ABNORMAL) Antibody screen (07/30/2024 4:40 AM CDT) Steph, indirect, Gel Interpretation Positive( A) Blood 07/30/2024 4:40 AM CDT 07/30/2024 4:57 AM CDT Narrative JOHN [facility] ([place]) - 07/30/2024 9:53 AM CDT Has the patient had Daratumumab or Isatuximab in the past 6 months?->Unknown Kelly Oviedo MD LAB BLOOD BANK TEST ORDERABLES Final Result JOHN [facility] ([place]) 1 [place] [address] * Magnesium (07/30/2024 4:40 AM CDT) Pathologist [facility] Magnesium 1.8 1.4 - 2.5 mg/dL Blood 07/30/2024 4:40 AM CDT 07/30/2024 4:57 AM CDT Kelly Oviedo MD LAB BLOOD ORDERABLE S Final Result Performing Organization Address City/[facility]/ZIP Co de Phone Number JOHN [facility] ([place]) 1 [place] [address] * (ABNORMAL) Comprehensive metabolic panel (07/30/2024 4:40 AM CDT) Pathologist [facility] Sodium 139 135 - 145 mmol/L Potassium, pl 3.8 3.3 - 4.9 mmol/L [facility] [place] ([place]) Chloride 103 97 - 110 mmol/L [facility] [place] ([place]) CO2 24 22 - 32 mmol/L [facility] [place] ([place]) Anion gap 12 2 - 15 mmol/L [facility] ([place]) BUN 12 6 - 25 mg/dL [facility] [place] ([place]) Creatinine 0.79 0.60 - 1.10 mg/dL [facility] [place] ([place]) Glucose 95 70 - 199 mg/dL [facility] [place] ([place]) Comment: Interpretive Data Fasting glucose >/= [...] 45 Units/L [facility] ([place]) Blood 07/30/2024 4:40 AM CDT 07/30/2024 4:57 AM CDT us Kelly Oviedo MD LAB BLOOD ORDERABLE S Final Result Performing Organization Address City/[facility]/ZIP Co de Phone Number JOHN [facility] ([place]) 1 [facility] [place] [address] * (ABNORMAL) Uric acid (07/30/2024 4:39 AM CDT) Uric acid 7.6(H) 2.5 - 7.0 mg/dL Blood 07/30/2024 4:39 AM CDT 07/30/2024 6:10 AM CDT us Killian Paul MD LAB BLOOD ORDERABLE S Final Result JOHN [facility] ([place]) 1 [facility] [place] [address] * (ABNORMAL) Lactate dehydrogenase (LD) (07/30/2024 4:39 AM CDT) Lactate dehydrogenase (LDH) 252(H) 100 - 250 Units/L Blood 07/30/2024 4:39 AM CDT 07/30/2024 6:10 AM CDT us Killian Paul MD LAB BLOOD ORDERABLE S Final Result Performing Organization Address City/[facility]/ZIP Co de Phone Number JOHN [facility] ([place]) 1 [facility] Department [place] [address] * ECG 12 lead (07/30/2024 4:21 AM CDT) 07/30/2024 4:21 AM CDT Narrative [facility] - 07/30/2024 7:14 AM CDT Vent Rate: 70 bpm RR Interval: 849 msec GA Interval: 154 msec QRS Duration: 90 msec QT Interval: 358 msec QTC Interval: 379 msec P-R-T [place]: 50 - 46 - 34 degrees IMPRESSION: SINUS RHYTHM NORMAL ECG Compared to prior EKG, heart rate is now slower Electronically Signed By: Dr Nick Bonilla us Kelly Oviedo MD ECG ORDERABLES Fin al Result Performing Organization Address [facility] Co de Phone Number [facility] * Rh Immune Globulin Eval (07/25/2024 6:53 AM CDT) RhIg Eligible Yes RhIg Administration 1 vial of Rh Immune Globulin (300 mcg dose) [facility] ([place]) Blood 07/25/2024 6:53 AM CDT 07/25/2024 6:56 AM CDT Narrative JOHN [facility] ([place]) - 07/25/2024 7:38 AM CDT Number of weeks ?->20 weeks or greater antibody screen result:->Negative Rhogam given?->Given Date Given?->05/15/24 Number of vials requested:->1 us Angel Horan MD LAB BLOOD BANK TEST ORDERA BLES Final Result Performing Organization Address City/[facility]/ZIP Co de Phone Number JOHN [facility] ([place]) 1 [facility] Department [place] [address] * erythrocyte screen (07/25/2024 6:53 AM CDT) Screen Interpretation Negative Comment:Testing performed by : [facility], 1 [facility], [place]., [address] Blood 07/25/2024 6:53 AM CDT 07/25/2024 10:34 AM CDT us Angel Horan MD LAB BLOOD ORDERABLES Final Result [facility] ([place]) 1 [facility] [place] [address] * (ABNORMAL) CBC without differential (07/25/2024 6:53 AM CDT) WBC 11.26(H) 3.80 - 9.90 K/cumm Hgb [...] ORDERABLES Final Result [facility] ([place]) [address] Department [place] [address] * Surgical pathology (07/24/2024 9:44 AM CDT) Tissue (Fallopian tube, sterilization) 07/24/2024 9:03 AM CDT Tissue specimen (specimen) (Fallopian tube, sterilization) 07/24/2024 9:07 AM CDT Narrative [facility] ([place]) - 08/05/2024 3:14 PM CDT EPIC results best viewed via link to PDF [facility] Department of Pathology [address] [place] [id number] Note to Patients: This report may contain [...] Final Report Patient Name: GAYLA MULTANI Address: [address] [place] [id number] Gender: F : 1990 (Age: 33) Service: Obstetrics Location: [facility] [employer] Hospital #: [id number] Patient Type: [facility] Taken: 07/24/2024 Received: 08/04/2024 Accessioned: 08/04/2024 [...] longer in block 2. Macarena Driver R.N., P.A./Vivian Marino M.D. REPORT IMAGES AND SCANNED DOCUMENTS, IF INCLUDED, ONLY VIEWABLE IN PDF VERSION OF REPORT The performance characteristics of some immunohistochemical stains, fluorescence in-situ hybridization tests and immunophenotyping by flow cytometry cited in this report (if any) were determined by the Surgical Pathology Department at [facility] as part of an ongoing quality control systems manager program and in compliance with federally mandated [...] characteristics determined by the Surgical Pathology Department [facility]. It has not been cleared or approved by the U. S. Food and Drug Administration. Note for decalcified specimens: This assay has not been validated on decalcified tissues. Results should be interpreted with caution given the possibility of false negativity on decalcified specimens us Angel Horan MD LAB PATHOLOGY ORDERABLES F inal Result [facility]Y [facility] ([place]) 1 [place] [address] * Blood Gas, Cord Venous (07/24/2024 8:47 AM CDT) pH Cord Kushal 7.34 pCO2 Cord [place] 49 mmHg [facility] ([place]) pO2 Cord [place] 29 mmHg [facility] ([place]) Base Excess Cord Kush[place] 0 mmol/L [facility] ([place]) HCO3 Cord Kushal (Calc) 26 mmol/L [facility] ([place]) O2 Sat Cord Kushal (Mansi) 54 % [facility] ([place]) Comment: Interpretive Data No Reference Ranges Established Current Interpretive Data was last revised on 2018 Cord blood 07/24/2024 8:47 AM CDT 07/24/2024 9:02 AM CDT Angel Horan MD LAB BLOOD ORDERABLES Final Result Performing Organization Address [facility] de Phone Number JOHN [facility] ([place]) 1 [facility] [place] [address] * Blood Gas, Cord Arterial (07/24/2024 8:47 [...] 8:47 AM CDT 07/24/2024 9:02 AM CDT us Angel Horan MD LAB BLOOD ORDERABLES Final Result Performing Organization Address [facility] Co de Phone Number JOHN [facility] ([place]) 1 [facility] [place] [address] * Spinal Block (07/24/2024 8:10 AM CDT) Narrative Jefry Valentin CRNA - 07/24/2024 8:10 AM CDT Jefry Valentin CRNA 07/24/2024 8:10 AM Spinal Block Patient location: L&D Reason for block: primary anesthetic Staff: Supervising provider: Chris Fernandez MD Placed by: PERSONAL LINES AGENT:Jefry Valentin CRNA Procedure prep: Preprocedure checklist: patient [...] no complications Chris Fernandez MD ANESTHESIA ORDERABLES Fi nal Result * (ABNORMAL) Differential, auto (07/24/2024 [...] Lymphocyte pct 20.9 % [facility] ([place]) Comment: Interpretive [...] revised on 2017. Basophil pct 0.3 % [facility] ([place]) Comment: Interpretive Data Percent cell count reference ranges are not reported, since discordance with absolute values may lead to misinterpretation of CBC data. Current Interpretive Data was last revised on 2017. Blood 07/24/2024 5:54 AM CDT 07/24/2024 6:03 AM CDT us Angel Horan MD LAB BLOOD ORDERABLES Final Result [facility] ([place]) 1 [facility] [place] [address] * (ABNORMAL) CBC with auto differential (07/24/2024 5:54 AM CDT) WBC 11.98(H) 3.80 - 9.90 K/cumm Hgb 10.5(L) 11.9 - 15.5 g/dL [facility] ([place]) Hct 30.8(L) 35.6 - 45.5 % [facility] ([place]) Plt 289 150 - 400 K/cumm [facility] ([place]) MPV 8.6(L) 9.1 - 12.3 fL [facility] ([place]) RBC 3.58(L) 3.90 - 5.20 M/cumm [facility] ([place]) MCV 86.0 81.3 - 96.4 fL [facility] ([place]) MCH 29.3 27.1 - 33.3 pg [facility] ([place]) MCHC 34.1 32.3 - 35.7 g/dL [facility] ([place]) RDW CV 13.1 11.1 - 14.9 % [facility] ([place]) RDW SD 40.7 35.7 - 48.1 fL [facility] ([place]) NRBC abs 0.00 0.00 - 0.01 K/cumm [facility] ([place]) Blood 07/24/2024 5:54 AM CDT 07/24/2024 6:03 AM CDT Angel Horan MD LAB BLOOD ORDERABLES Final Result JOHN [facility] ([place]) 1 [facility] [place] [address] * ABO/Rh (07/24/2024 5:54 AM CDT) ABO/Rh O Negative Blood 07/24/2024 5:54 AM CDT 07/24/2024 6:03 AM CDT Narrative JOHN M[facility] ([place]) - 07/24/2024 6:53 AM CDT Has the patient had Daratumumab or Isatuximab in the past 6 months?->Unknown Angel Horan MD LAB BLOOD BANK TEST ORDERA BLES Final Result JOHN [facility] ([place]) 1 [facility] [place] [address] * RPR Blood (07/24/2024 5:54 AM CDT) RPR Nonreactive Nonreactive Comment:Testing performed by : [facility], [address] [place] [address], [place]., [address] Blood 07/24/2024 5:54 AM CDT 07/24/2024 9:38 AM CDT Angel Horan MD LAB MICROBIOLOGY - GENERAL ORDERABLES Final Result JOHN [facility] ([place]) 1 [facility] [place] [address] * Antibody screen (07/24/2024 5:54 AM CDT) Steph, indirect, Gel Interpretation Negative ABSC Blood 07/24/2024 5:54 AM CDT 07/24/2024 6:03 AM CDT Narrative JOHN RENZO ([place]) - 07/24/2024 6:53 AM CDT Has the patient had Daratumumab or Isatuximab in the past 6 months?->Unknown Angel Horan MD LAB BLOOD BANK TEST ORDERA BLES Final Result Performing Organization Address City/[facility]/ZIP Co de Phone Number JOHN [facility] ([place]) 1 [facility] [place] [address] * POCT urinalysis dipstick (07/20/2024 1:07 PM CDT) Glucose, ur, POC Negative Negative Ketones, ur, POC Negative Negative Protein, ur, POC Negative Negative Lot Number [id number] Urine 07/20/2024 1:07 PM CDT Angel Horan MD POINT OF CARE TEST ORDERAB LES Final Result * POCT urinalysis dipstick (07/13/2024 1:20 PM CDT) Glucose, ur, POC Negative Negative Ketones, ur, POC Negative Negative Protein, ur, POC Negative Negative Lot Number [id number] Urine 07/13/2024 1:20 PM CDT Angel Horan MD POINT OF [...] BLOOD ORDERABLE S Final Result JOHN [facility] ([place]) 1 [facility] Department [place] [address] * Urinalysis reflex to microscopic and culture Urine, clean voided (06/30/2024 2:03 AM CDT) Color, ur Yellow Yellow Clarity, ur Clear Clear JOHN Don ([place]) Specific gravity, ur 1.012 1.003 - 1.030 JOHN [facility] ([place]) pH, urine 6.5 JOHN [facility] ([place]) Comment: Interpretive Data U rine pH is affected by diet, medications, systemic acid-base disturbances, and renal tubular function. pH may affect urinary stone formation. For example, urine pH below 6.0 may help reduce the tendency for calcium phosphate stones and pH greater than 6.0 may reduce the tendency for uric acid stone formation. Source: [facility] [employer] Current Interpretive Data was last revised on 2017 Protein, ur ql Negative Negative MUKESH [facility] ([place]) Glucose, ur ql Negative Negative [facility] ([place]) Ketones, ur Negative Negative [facility] ([place]) Bilirubin, ur Negative Negative [facility] ([place]) Blood, ur Negative Negative [facility] ([place]) Urobilinogen, ur <2.0 <2.0 mg/dL [facility] ([place]) Nitrite, ur Negative Negative [facility] ([place]) Leukocyte esterase, ur Negative Negative [facility] ([place]) UA reflex comment Reflex conditions for microscopic UA and culture not met. [facility] ([place]) Urine, clean voided 06/30/2024 2:03 AM CDT 06/30/2024 2:25 AM CDT Nuria Mckenna MD LAB MICROBIOLOGY - GENERAL ORDERABLES Final Result Performing Organization Address [facility] Co de Phone Number JOHN [facility] ([place]) 1 [facility] [place] [address] * Protein / creatinine ratio, urine, random (06/30/2024 2:03 AM CDT) Protein, ur, quant 10.0 mg/dL Comment: Interpretive Data No reference range established. Current interpretive data was last revised 2018. Creatinine Ur 59.7 mg/dL [facility] ([place]) Comment: Interpretive Data No reference range established. Current interpretive data was last revised 2018. Protein/creatinin e ratio 167.5 0.0 - 180.0 mg/g CR [facility] [place] ([place]) Urine 06/30/2024 2:03 AM CDT 06/30/2024 2:25 AM CDT Nuria Mckenna MD LAB URINE ORDERABLE S Final Result Performing Organization Address [facility] Co de Phone Number JOHN MULLER ([place]) 1 [facility] [place] [address] * (ABNORMAL) CBC without differential (06/30/2024 2:03 [...] ORDERABLE S Final Result Performing Organization Address City/[facility]/ZIP Co de Phone Number JOHN MULLER ([place]) 1 [facility] [place] [address] * Uric acid (06/30/2024 2:03 AM CDT) Uric acid 4.7 2.5 - 7.0 mg/dL Blood 06/30/2024 2:03 AM CDT 06/30/2024 2:25 AM CDT Nuria Mckenna MD LAB BLOOD ORDERABLE S Final Result JOHN MULLER ([place]) 1 [facility] [place] [address] * Lactate dehydrogenase (LD) (06/30/2024 2:03 AM CDT) Lactate dehydrogenase (LDH) 159 100 - 250 Units/L Blood 06/30/2024 2:03 AM CDT 06/30/2024 2:25 AM CDT us Nuria Mckenna MD LAB BLOOD ORDERABLE S Final Result [facility] ([place]) 1 [facility] Department [place] [address] * (ABNORMAL) Comprehensive metabolic panel (06/30/2024 2:03 [...] ORDERABLE S Final Result Performing Organization Address [facility] Co de Phone Number JOHN [facility] ([place]) [address] [place] [address] [place] [address] * ECG 12 lead (06/30/2024 1:11 AM CDT) 06/30/2024 1:11 AM CDT Narrative [facility] - 06/30/2024 6:49 AM CDT Vent Rate: 87 bpm RR Interval: 688 msec GA Interval: 130 msec QRS Duration: 97 msec QT Interval: 359 msec QTC Interval: 403 msec P-R-T [place]: 4 - 70 - 20 degrees IMPRESSION: SINUS RHYTHM NORMAL ECG Electronically Signed By: Juwan Chery MD Guadalupe Mars MD ECG ORDERABLES Final Result Performing Organization Address [facility] de Phone Number [facility] [place] [facility] * (ABNORMAL) Protein / creatinine ratio, urine, random (06/29/2024 2:25 PM CDT) Protein, ur, quant 9.0 mg/dL Comment: Interpretive Data No reference range established. Current interpretive data was last revised 2018. Creatinine Ur 46.8 mg/dL [facility] ([place]AY[place]E) Comment: Interpretive Data No reference range established. Current interpretive data was last revised 2018. Protein/creatinin e ratio 192.3(H) 0.0 - 180.0 mg/g CR [facility] ([place]) Urine 06/29/2024 2:25 PM CDT 06/29/2024 3:42 PM CDT Angel Horan MD LAB URINE ORDERABLES Final Result JOHN MULLER ([place]AYLENE) 1 [facility] Department [place] [address] * Group B streptococcus culture, penicillin allergic Vaginal/Rectal (06/29/2024 1:30 PM CDT) CULTURE, GROUP B STREP WITH SUSCEPTIBILITY [employer]Karyn ryan Agrawal Comment: CULTURE, GROUP B STREP WITH SUSCEPTIBILITY Micro Number: [id number] Test Status: Final Specimen Source: Vag/rectal Specimen Quality: Adequate Result: No group B Streptococcus isolated Note per CDC guidelines optimal recovery is achieved by swabbing both the lower vagina and rectum (through the anal sphincter). Vaginal/Rectal 06/29/2024 1: 30 PM CDT 06/30/2024 4:27 AM CDT Angel Horan MD LAB MICROBIOLOGY - GENERAL ORDERABLES Final Result Performing Organization Address City/[facility] Co de Phone Number My Point...[facility] [address] [place] [address] * (ABNORMAL) POCT OB urine short dip (glucose, protein, ketones) (06/29/2024 1:28 PM CDT) Glucose, ur, POC Negative Negative MG/DL Protein, ur, POC 1+(A) Negative Ketones, ur, POC Trace(A) Negative Lot Number [id number] Urine 06/29/2024 1:28 PM CDT Angel Horan MD POINT OF CARE TEST ORDERAB LES Final Result * POCT urinalysis dipstick (06/16/2024 3:38 PM CDT) Glucose, ur, POC Negative Negative MG/DL Ketones, ur, POC Negative Negative Protein, ur, POC Negative Negative Lot Number [id number] Urine 06/16/2024 3:38 PM CDT Result [facility] Angel Horan MD POINT OF CARE TEST ORDERAB LES Final Result * US Ob Follow Up (06/16/2024 3:24 PM CDT) Pathologist [facility] Fetus# Fetus1 VIEWPOINT Estimated Weight 2,649 g&grams [...] stones. FormalGB US can be considered. Result [facility] Angel Horan MD IMG OB US PROCEDURES Final Result * (ABNORMAL) POCT urinalysis dipstick (06/05/2024 8:14 AM CDT) [facility] Glucose, ur, POC Negative Negative MG/DL Ketones, ur, POC Negative Negative Protein, ur, POC Trace(A) Negative Lot Number [id number] Urine 06/05/2024 8:14 AM CDT Result [facility] Angel Horan MD POINT OF CARE TEST ORDERAB LES Final Result * Pap and HPV, reflex to HPV Genotypes (01/17/2024 4:25 PM SUPERVISOR PREP) CLINICAL INFORMATION: [facility] Comment:None given LMP [facility] Comment:A Previous Pap [facility] Comment:NONE GIVEN Prev. Bx [facility] Comment:NONE GIVEN SOURCE: [facility] Comment:Cervix, Endocervix Pap, specimen adequacy [facility] Comment: Satisfactory for evaluation. Endocervical/transformation zone component present. Age and/or menstrual status not provided HPV interp [facility] Comment: Cytology Results: Negative for intraepithelial lesion or malignancy. COMMENTS [facility] Comment: This Pap test has been evaluated with computer assisted technology. Jeweler Apprentice [facility] Comment: LM, CT(ASCP) CT screening location: [place] [address] [address] [place] [address] Comment [facility] Comment: EXPLANATORY NOTE: The Pap is a [...] High Risk E6/E7 Not Detected NOT DETECTED [facility] Comment: Not Detected High Risk HPV types (16,18,31,33,35,39,45,51,52, 56,58,59,66,68) were not detected. Other HPV types which cause anogenital lesions may be present. The significance of the other types of HPV in malignant processes has not been established. Methodology: Real Time PCR Thin prep-Endocervica l 01/17/2024 4:25 PM SUPERVISOR PREP 01/20/2024 6:28 AM SUPERVISOR PREP us Angel Horan MD LAB CYTOLOGY ORDERABLES Fi nal Result [facility] [address] [place] [address] [place] [address] [place] [address] * Hepatitis C antibody Blood (01/17/2024 3:07 PM SUPERVISOR PREP) Hep C Ab Nonreactive Nonreactive Comment: Interpretive [...] last revised on 2019. Testing performed by: [facility], [address] [place] [address]., [id number] Blood 01/17/2024 3:07 PM SUPERVISOR PREP 01/17/2024 7:03 PM SUPERVISOR PREP Angel Horan MD LAB MICROBIOLOGY - GENERAL ORDERABLES Final Result [facility] ([place]) 1 [facility] Department [place] [address] from Last 3 Months or Most Recently Relevant to Health Maintenance Insurance [facility] [address] [place] [address] [facility] [address] [place] [address] Advance Directives For more information, please contact: [phone] * Full Code (Latest Code Status on File) Date Activated Date Inactivated Comments 07/30/2024 5:32 PM 08/01/2024 5:23 PM * Full Code Date Activated Date Inactivated Comments 07/24/2024 9:58 AM 07/26/2024 6:20 PM * Full Code Date Activated Date Inactivated Comments 07/24/2024 5:34 AM 07/24/2024 9:58 AM Full CPR in case of cardiopulmonary arrest Care Teams Folder And Notcher Relationship Specialty Start Date End Date Unknown, Notinfile PCP - General 10/10/22 Bertha Barker MD [address] [address] Consulting Physician Cardiology 04/09/24 Amy Chiang Primary Master Plumber 04/09/24 Angel Horan MD [address] [place] [address] [place] [id number] Strategic Client Executive Obstetrics and Gynecology 07/26/24
--- OUTSIDE RECORDS SUMMARY | 2024-08-22 21:51 | XMS_ITS | Encounter Summary ---
Author Name [facility] [place] Address [address] [place] [address] Care Team Providers Care Stars Analytical Lead Name Role Phone USAMA LOPEZ Primary Care [...] TER & EMPLO YERS Mar 11, 2018 [id number] AXEL MULTANI SPOUSE [place] PREFERRED PROVIDER ORGANIZAT ION (PPO) TEAMS TER + EMPLO YERS Mar 11, 2018 [id number] AXEL MULTANI SPOUSE LDI RX PRESCRIPT ION TEAMS TER & EMPLO YERS Mar 11, 2018 [id number] [phone] GAYLA MULTANI SPOUSE Selected Encounter This section includes the information on record at [place] for the Encounter. Date/Time Encounter Type Encounter Description Reason Pro vider Source Mar 31, 2024 10:17 AM Outpatient Encounter COMMUNITY CARE CONSULT IHE Encounter Template Text not used by [facility] Plan of Treatment: Future Appointments (+ 6 months) and Future Tests (+/- 45 days) The Plan of Treatment section includes future care activities for the patient from all [place] treatmentfaalleghany healthities. This section includes future appointments and future orders which are active, pending or scheduled. Future Appointments This section includes appointments that were scheduled to occur 6 months from the date of the Encounter, up to a maximum of 20 appointments. The data comes from all [place] treatment facilities. Appointment Date/Time Appointment Type Appointme nt Facility Name Apr 09, 2024 11:00 AM AMBULATORY - MEDICINE [facility] Apr 14, 2024 03:30 PM AMBULATORY - MEDICINE [facility] Apr 21, 2024 08:30 AM AMBULATORY - MED[facility]INE [facility] Apr 22, 2024 11:30 AM AMBULATORY - NONE [facility] Leonel [facility] Apr 28, 2024 11:00 AM AMBULATORY - MEDICINE [facility] May 26, 2024 11:00 AM AMBULATORY - MEDICINE [facility] Jun 12, 2024 02:00 PM AMBULATORY - MEDICINE [facility] Jun 15, 2024 02:00 PM AM[facility]ULATORY - NONE [facility] Jun 17, 2024 11:00 AM AMBULATORY - MEDICINE [facility] Jun 24, 2024 11:00 AM AMBULATORY - MEDICINE [facility] Jun 24, 2024 02:00 PM AMBULATORY - MEDICINE [facility] Jul 08, 2024 10:00 AM AMBULATORY - MEDICINE [facility] July 30, 2024 11:30 AM AMBULATORY - MEDICINE [facility] August 06, 2024 01:00 PM AMBULATORY - MEDICINE [facility] Aug 12, 2024 10:00 AM AMBULATORY - MEDICINE [facility] Aug 26, 2024 10:00 AM AMBULATORY - MEDICINE [facility] Sep 18, 2024 11:00 AM AMBULATORY - MEDICINE [facility] Social History: Smoking Status (Most current) and Tobacco Use (All prior to encounter date) This section includes the most current, and the historical, smoking and tobacco- related health factors from the [place] facility where the Encounter took place. Current Smoking Status This section includes the most current smoking, or tobacco-related health factor, from the [place] facility where the Encounter took place. Date/Time Current Smoking Status Comment Laly ity Jan 30, 2023 03:14 PM VA-TOBACCO FORMER USER [facility] Tobacco Use History This section includes a history of the smoking, or tobacco-related health factors, that were collected on or before the date of the Encounter. The data comes from the [place] facility where the Encounter took place. Date/Time Smoking Status/Tobacco Use Comment F acility Jan 30, 2023 03:14 PM VA-TOBACCO QUIT 5 TO < 15 YRS [facility] Nov 04, 2017 09:12 AM QUIT TOBACCO >12 M O & <7 YRS AGO [facility] Encounter Notes: All associated encounter notes This section contains the clinical notes associated to the Encounter. Date/Time Encounter Note(s) Provider Source Mar 31, 2024 10:17 AM LETTERS: LOCAL TITLE: COMMUNITY CARE-REQUEST FOR SERVICES (RFS) LETTER ST STANDARD TITLE: LETTERS DATE OF NOTE: MAR 31, 2024@10:17 ENTRY DATE: MAR 31, 2024@10:17:59 AUTHOR: ALISA MAYNARD EXP COSIGNER: URGENCY: STATUS: COMPLETED [facility] [address] [place] [address] Dr. Angel Horan MD [address] [place] [address] [place] [address] P: [phone] F: [phone] Dear Provider, [place] Information: Patient Name: GAYLA MULTANI Date of : Nov The Office of [facility] Care has received the request continuation of care for Cardiology from you for services that were not originally authorized in the [facility] Administration for this . Upon review, the following determination has been made: Service has been Approved. (Authorization #[id number]) Should you have questions, please contact us at [phone] to speak with a patient emergency services director. As a reminder, if applicable, return medical records within 30 days for routine services. [facility] In The Community Sincerely, ALISA MAYNARD REGISTERED NURSE ALISA MAYNARD [facility]
--- OUTSIDE RECORDS SUMMARY | 2024-08-22 21:51 | XMS_ITS | Encounter Summary ---
Author Name [place] Address [address] [place] [address] Care Team Providers Care Concrete Wall Grinder Operator Name Role Phone USAMA LOPEZ Primary [...] TER & EMPLO YERS Mar 11, 2018 [id number] AXEL MULTANI SPOUSE [place] PREFERRED PROVIDER ORGANIZAT ION (PPO) TEAMS TER + EMPLO YERS Mar 11, 2018 [phone] AXEL MULTANI SPOUSE LDI RX PRESCRIPT ION TEAMS TER & EMPLO YERS Mar 11, 2018 [id number] [phone] GAYLA MULTANI SPOUSE Selected Encounter This section includes the information on record at [place] for the Encounter. Date/Time Encounter Type Encounter Description Reason Provider Source Nov 28, 2023 01:20 PM Outpatient Encounter COMMUNITY CARE CONSULT OMAYRA TENA IHRamesh Encounter Template Text not used by [place] Plan of Treatment: Future Appointments (+ 6 months) and Future Tests (+/- 45 days) The Plan of Treatment section includes future care activities for the patient from all [place] treatmentfacilities. This section includes future appointments and future orders which are active, pending or scheduled. Future Appointments This section includes appointments that were scheduled to occur 6 months from the date of the Encounter, up to a maximum of 20 appointments. The data comes from all [place] treatment facilities. Appointment Date/Time Appointment Type Appointme nt Facility Name Dec 02, 2023 11:00 AM AMBULATORY - MEDICINE [facility] [facility] Dec 19, 2023 08:00 AM AMBULATORY - NONE [facility] Jan 01, 2024 10:00 AM AMBULATORY - NONE [facility] I L [facility] Feb 10, 2024 11:00 AM AMBULATORY - MEDICINE [facility] Feb 25, 2024 11:30 AM AMBULATORY - NONE [facility]EN[facility] I L [facility] Mar 17, 2024 09:30 AM AMBULATORY - MEDICINE [facility] Mar 23, 2024 12:30 PM AMBULATORY - MEDICINE [facility] Apr 09, 2024 11:00 AM AMBULATORY - MEDICINE [facility] Apr 14, 2024 03:30 PM AMBULATORY - MEDICINE [facility] Apr 21, 2024 08:30 AM AMBULATORY - MEDICINE [facility] Apr 22, 2024 11:30 AM AMBULATORY - NONE YENNI I L [facility] Apr 28, 2024 11:00 AM AMBULATORY - MEDICINE [facility] May 26, 2024 11:00 AM AMBULATORY - MEDICINE [facility] Lab Results: +/- 30 days of the encounter This section includes the Chemistry and Hematology Lab Results on record with [place] for the patient. Radiology Reports and Pathology Reports are provided separately, in subsequent sections. Lab Results This section contains the Chemistry/Hematology Results that were resulted 30 days before or 30 daysafter the date of the Encounter. Date/Time Source Result Type Result - Unit Interpretation Reference Range Specimen Type Comment Nov 26, 2023 12:34 PM [facility] HCG QUANT SERUM Specimen Type: SERUM Comment: The listed sex of this patient may not be a typical indication for this test. Therefore, reference ranges or interpretive criteria listed may not be valid. Clinical correlation suggested. Ordering Provider: USAMA LOPEZ Report Released Date/Time: Nov 22, 2023 09:42 AM Reporting Lab: [facility] [address] [facility] [address] Performing Lab: [facility] [address] [facility] [address] HCG QUANT 572.00 m[IU]/mL H 0-5 Social History: Smoking Status (Most current) and Tobacco Use (All prior to encounter date) This section includes the most current, and the historical, smoking and tobacco- related health factors from the [facility] where the Encounter took place. Current Smoking Status This section includes the most current smoking, or tobacco-related health factor, from the [place] facility where the Encounter took place. Date/Time Current Smoking Status Comment Laly ity Jan 30, 2023 03:14 PM VA-TOBACCO FORMER USER [facility] Tobacco Use History This section includes a history of the smoking, or tobacco-related health factors, that were collected on or before the date of the Encounter. The data comes from the [facility] where the Encounter took place. Date/Time Smoking Status/Tobacco Use Comment F acility Jan 30, 2023 03:14 PM VA-TOBACCO QUIT 5 TO < 15 YRS [facility] Nov 04, 2017 09:12 AM QUIT TOBACCO >12 M O & <7 YRS AGO [facility] Encounter Notes: All associated encounter notes This section contains the clinical notes associated to the Encounter. Date/Time Encounter Note(s) Provider Source Nov 28, 2023 01:20 PM NONVA NOTE: LOCAL TITLE: COMMUNITY CARE-CARE COORDINATION PLAN NOTE [address] [facility] STANDARD TITLE: NONVA NOTE DATE OF NOTE: NOV 28, 2023@13:20 ENTRY DATE: NOV 28, 2023@13:21:15 AUTHOR: OMAYRA TENA COSIGNER: URGENCY: STATUS: COMPLETED COMMUNITY CARE-CARE COORDINATION PLAN NOTE [address] Has ADDENDA Community Care Consult: COMMUNITY CARE-[facility] MATERNITY 11/26/2023 Consult No: [id number] [facility] Referral #: [id number] Chief Complaint: 33yo with positive home test and + HCG in clinic. Patient Admitted? No Level of Care Coordination Complex/Chronic Care Coordination was determined from: Chart Review Facility [facility] Care Office Contact Care Coordination Point of Contact: Omayra Tena RN Services: Moderate Care Coordination Services Case Management, if appropriate Direct communications with interdisciplinary team Plan: Send to [facility]. Fax authorization to provider. Follow up with provider or for scheduling update. Follow up with after initial TACTICAL DECEPTION PLANS OFFICER appointment. Follow up with monthly after appointments. Retrieve visit records. Review records and send to [facility]. Assess if any other care is needed. /debi/ OMAYRA TENA Registered Nurse Signed: 11/28/2023 13:24 11/29/2023 ADDENDUM STATUS: COMPLETED CONTACT Ramakrishna was contacted on Nov to discuss maternity consult. This author introduced herself and informed that this RN will be calling her monthly throughout her . This author informed that she will receive a welcome letter in the mail. This author asked if she had any questions at this time. [place] replied, not at this time. [place] encouraged to call [facility] at [phone] if she has any questions. verbalized understanding and thanked this author for calling. Call was mutually ended. Action Needed? Yes Follow up with provider/ for scheduling update. /debi/ OMAYRA TENA Registered Nurse Signed: 11/29/2023 12:16 01/08/2024 ADDENDUM STATUS: COMPLETED CONTACT Ramakrishna was contacted on Dec to discuss maternity consult. This author asked how was initial OBGYN visit. states the appointment was just for her initial ultrasound so it was uneventful. This author asked when is her next appointment. [place] states she is scheduled 01/17/2024 @ 2:30. This author asked if she needed any assistance from [facility] at this time. [place] denies needing any assistance at this time. Ramakrishna thanked this author for calling. Call was mutually ended. Action Needed? Yes Follow up with next month. /debi/ OMAYRA TENA Registered Nurse Signed: 01/08/2024 14:39 06/10/2024 ADDENDUM STATUS: COMPLETED PROVIDER CONTACT Bee matson [facility] contacted on Jun to discuss if repeat and sterilization are covered with authorization. This author informed Bee that sterilization is covered as long as it completed during the same hospitalization. Bee verbalized understanding. Action Needed? No CONTACT Ramakrishna was contacted on Jun to discuss how she is doing with and to assess if there is anything [facility] can do to assist her. [place] states the is going good and she is fine. This author asked ramakrishna has her been scheduled. states it is tentatively scheduled for 07/24/2024. This author thanked for speaking with her. Call was mutually ended. Action Needed? Yes Follow up with next month. /debi/ OMAYRA ETNA Registered Nurse Signed: 06/10/2024 12:19 OMAYRA TENA [facility]
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
--- OUTSIDE RECORDS SUMMARY | 2024-08-22 22:09 | XMS_ITS | Encounter Summary ---
Author Organization [facility] Healthcare Address [address] [place] [address] Care Team Providers Care Russian Language Instructor Name Role Phone Unknown, Alee Primary Care Provider Unavail able Bertha Barker MD Unavailable [phone] Amy Chiang Unavailable Unavailable Angel Horan MD Unavailable [phone] Encounter Details Date Type Department Care Team (Late st Contact Info) Description 04/20/2024 Telephone [facility] Transplant Heart [id number] [place] [address] Amy Chiang Social History Tobacco Use Types [...] on filedocumented in this encounter Care Teams Russian Language Instructor Relationship Specialty Start Date End Date Unknown, Alee PCP - General 10/10/22 Bertha Barker MD [address] [facility] [address] [place] [address] Consulting Physician Cardiology 04/09/24 Amy Chiang Primary Supervisor Pastry 04/09/24 Angel Horan MD [address] [place] [address] [place] [id number] Point Of Care Technician Obstetrics and Gynecology 07/26/24 documented as of this encounter
--- OUTSIDE RECORDS SUMMARY | 2024-08-22 22:10 | XMS_ITS | Continuity of Care Document ---
Author Name [facility] Organization [facility] Care Team Providers Care Microbiology Soil Scientist Name Role Phone [facility] Unavailable Unavailable Problems Combined list of problems from 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 It does not include entries that were removed or entered in error. Problem Status Onset Date Problem Type Date of Resolution Comments Source Anxiety Active Condition [facility] Elevated blood pressure reading without diagnosis of HTN (hypertension) Active Condition [facility] Irregular intermenstrual bleeding Active Condition [facility] Left side sciatica Active Condition [facility] Low back pain Active Condition [facility] Obesity Active Condition [facility] PCOS- polycystic ovary syndrome Active Condition [facility] Hip pain Inactive Condition 02/06/2023 [facility] EXAM, FORMAL OCCUPATIONAL HEALTH PROGRAM INCLUDING HEARING CONSERVATION PROGRAM, ESTABLISH BASELINE PRIOR TO OCCUPATIONAL WORKPLACE EXPOSURE Active Condition [facility] visit: ears/hearing exam for hearing conservation, treatment Inactive Condition [facility] Patient Education - Injury Prevention Active Condition [facility] ASTIGMATISM - REGULAR Active Condition [facility] Inquiry And Counseling: Contraceptive Practices Inactive Condition [facility] Vaccines Prophylactic Need Against Viral Diseases Inactive Condition [facility] NICOTINE DEPENDENCE Active Condition [facility] Contraceptives Active Condition [facility] ASSESSMENT OF PATIENT CONDITION WORK-RELATED Active Condition [facility] PLANTAR FASCIITIS Active Condition [facility] EYESTRAIN Inactive Condition [facility] Need For Vaccination Human Papilloma Virus Inactive Condition [facility] visit for: screening exam Active Condition [facility] VAGINITIS Inactive Condition [facility] Other Physical Therapy Active Condition [facility] TENDONITIS POSTERIOR TIBIAL RIGHT Inactive Condition [facility] SINUSITIS Active Condition [facility] SINUSITIS ACUTE Inactive Condition DoD UPPER RESPIRATORY INFECTION Inactive Condition [facility] ACUTE TONSILLITIS Inactive Condition [facility] DIETARY CALCIUM DEFICIENCY Active Condition [facility] Gynecologic Services Prescription Of Contraceptive Agents Inactive Condition [facility] PREMENSTRUAL SYNDROMES Active Condition [facility] SUPERFICIAL INJURY - BLISTER OF ANKLE Inactive Condition [facility] visit for: screening exam for malignant neoplasm cervix Active Condition [facility] ROUTINE GYNECOLOGICAL EXAM WITH CERVICAL PAP SMEAR Inactive Condition [facility] Preventive Medicine New Patient Evaluation Adult 18-39 Active Condition [facility] Patient Education Active Condition [facility] Gynecologic Services Contraceptive General Counseling Active Condition [facility] Dietary Counseling Pertaining To Osteoporosis Active Condition [facility] Anticipatory Guidance: Unsafe Sexual Practices Inactive Condition [facility] visit for: services physical Active Condition [facility] visit for: ears / hearing exam Active Condition [facility] Diagnosis: ICD-10-CM F41.9 Anxiety disorder, unspecified Active Diagnosis [facility] Diagnosis: ICD-10-CM I26.99 Other pulmonary embolism without acute cor pulmonale Active Diagnosis [facility] Ivan LEBLANC [facility] Diagnosis: ICD-10-CM Z51.81 Encounter for therapeutic drug level monitoring Active [facility] Diagnosis: ICD-10-CM Z86.711 Personal history of pulmonary embolism Active Diagnosis [facility] DOREEN [facility] Diagnosis: ICD-10-CM Z39.2 Encounter for routine follow-up Active Diagnosis [facility] Diagnosis: ICD-10-CM Z71.89 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ed counseling Active Diagnosis [facility] Diagnosis: ICD-10-CM E88.819 Insulin resistance, unspecified Active Diagnosis [facility] Diagnosis: ICD-10-CM M54.50 Low back pain, unspecified Active Diagnosis [facility] Diagnosis: ICD-10-CM Z33.1 state, incidental Active Diagnosis [facility] Diagnosis: ICD-10-CM 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m of uncertain behavior of skin Active Diagnosis [facility] Diagnosis: ICD-10-CM 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tic ovarian syndrome Active Diagnosis [facility] Diagnosis: ICD-10-CM E66.9 Obesity, unspecified Active Diagnosis [facility] Medications Combined list of outpatient medications from Department of Defense and [facility] Affairs facilities.Medications provided include 1) outpatient medications from the last 15 months, and 2) patient-reported medications. Medication Details Route Status Patient Instructions Prescription Expires Prescription Number Last Dispense Date Ordering Provider Order Date Order Qty Source ASPIRIN 81MG TAB,EC TAKE ONE TABLET BY MOUTH ONCE A DAY TAKE WITH FOOD. ORAL 07/21/2024 [id number] GILBERT MARKS 2024 120 [facility] ASPIRIN 81MG TAB,EC TAKE ONE TABLET BY MOUTH ONCE A DAY ORAL ACTIVE Karyn LOPEZ 2024 [facility] BUSPIRONE HCL 10MG TAB TAKE ONE TABLET BY MOUTH TWICE A DAY DO NOT TAKE WITH GRAPEFRU IT JUICE. ORAL ACTIVE 08/05/2025 [id number] 5 GILBERT MARKS SEPH M 2024 60 [facility] CHOLECALCIF GIULIANO 50MCG (2,000UNIT) TAB TAKE ONE TABLET BY MOUTH ONCE A DAY ORAL ACTIVE 03/24/2025 [id number] 5 GILBERT MARKS SEPH M 2024 100 [facility] N DOCUSATE NA 100MG CAP TAKE ONE CAPSULE BY MOUTH TWICE DAILY NEEDED FOR CONSTIPA TION. HOLD FOR LOOSE STOOL/DI ARRHEA. ORAL ACTIVE 03/24/2025 [id number] 5 GILBERT MARKS M 2024 100 [facility] FERROUS SO4 325MG TAB TAKE ONE TABLET BY MOUTH ONCE A DAY . TAKE WITH BREAKFAS T ORAL ACTIVE 03/24/2025 [id number] 5 GILBERT MARKS SEPH M 2024 100 [facility] FUROSEMIDE 20MG TAB TAKE ONE-HALF TABLET BY MOUTH ONCE A DAY NEEDED FOR FLUID RETENTIO N. CALL PRESCRIB ER OFFICE BEFORE USING ORAL 05/21/2024 [id number] 5 RUTHIE BEEBE NDArian K 2024 10 [facility] N HYDROCORTIS ONE 2.5% CREAM,TOP APPLY TO AFFECTED AREA(S) TWICE A DAY FOR EXTERNAL USE ONLY. APPLY SPARINGL Y. TOPICA L DISCONT INUED 06/30/2025 [id number] 5 GILBERT MARKS M 2024 30 [facility] HYDROCORTIS ONE 2.5% CREAM,TOP APPLY LIGHTLY TO AFFECTED AREA(S) ONCE A DAY NEEDED FOR ITCHING FOR EXTERNAL USE ONLY. APPLY SPARINGL Y. TOPICA L DISCONT INUED 04/15/2025 [id number] 5 Shashank ALVARENGA TANNER B 2024 30 [facility] LABETALOL HCL 200MG TAB TAKE ONE TABLET BY MOUTH TWICE A DAY ORAL ACTIVE DEPAULO,S NikkiZAZULEYKAE 2024 [facility] LIDOCAINE HCL 2% JELLY,UROJE T,10ML APPLY SPARINGL Y TO AFFECTED AREA(S) EVERY DAY NEEDED FOR TOPICAL ANESTHES IA FOR HEMORROI D PAIN TOPICA L 08/01/2024 [id number] 5 GILBERT MARKS 2024 5 [facility] METFORMIN HCL 500MG 24HR TAB,SA TAKE ONE TABLET BY MOUTH WITH DINNER TAKE WITH FOOD. AVOID ALCOHOL. DISCONTI NUE BEFORE GETTING XRAY DYE. ORAL DISCONT INUED BY PROVIDE R 05/21/2024 [id number] XANDER ALBERTO Y F 2023 90 [facility] MULTIVITAMI NS W/MINERALS, CAP/TAB TAKE 1 TABLET BY MOUTH ONCE A DAY FOR NUTRITIO N/DIETAR Y SUPPLEME NTATION TAKE WITH FOOD ORAL ACTIVE 11/27/2024 [id number] 5 JOHNS JACE 2023 100 [facility] NIFEDIPINE (EQV-CC) 30MG TAB,SA TAKE ONE TABLET BY MOUTH ONCE A DAY PREFERAB LE TO TAKE ON EMPTY STOMACH. SWALLOW WHOLE; DO NOT CRUSH OR CHEW. AVOID GRAPEFRU IT JUICE. ORAL ACTIVE 08/29/2024 [id number] 5 SHEILA FUNEZ B 2024 30 [facility] NURSING CREAM,TOP W/LANOLIN APPLY LIGHTLY TO AFFECTED AREA(S) ONCE A DAY NEEDED FOR SKIN PROTECTI ON TOPICA L ACTIVE 04/29/2025 [id number] 5 JOHN,S NikkiZACASS 2024 30 [facility] PROGESTERON E 200MG CAP INSERT ONE CAPSULE VAGINALL Y EVERY EVENING VAGINA L DISCONT INUED 03/24/2025 [id number] 5 GILBERT MARKS 2024 30 [facility] RIVAROXABAN 15MG TAB TAKE ONE TABLET BY MOUTH TWICE A DAY FOR 21 DAYS THEN USE 20 MG ONCE DAILY. TAKE WITH FOOD. USE THIS BOTTLE FIRST! ORAL DISCONT INUED 08/29/2024 [id number] 5 SHEILA FUNEZ 2024 42 [facility] N RIVAROXABAN 20MG TAB TAKE ONE TABLET BY MOUTH ONCE A DAY FOR ANTICOAG ULATION TAKE WITH FOOD. ORAL ACTIVE 08/05/2025 [id number] 5 Karyn LOPEZ 2024 30 [facility] RIVAROXABAN 20MG TAB TAKE ONE TABLET BY MOUTH ONCE A DAY . TAKE WITH FOOD. START THIS DOSE AFTER COMPLETI NG THE 15MG TWICE DAILY PRESCRIP TION. USE THIS BOTTLE SECOND (AFTER 15MG) ORAL DISCONT INUED 08/29/2024 [id number] 5 SHEILA FUNEZ 2024 9 [facility] DIV[facility] N Allergies, Adverse Reactions, Alerts Combined list of allergies from 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 It does not include entries that were removed or entered in error. Substance Category Reaction Severity Reaction type Status Date Reported Comments Source DULOXETINE Propensity to adverse reactions to drug (finding) Nausea and vomiting, Diarrhea active 8 [facility] LATEX GLOVE Propensity to adverse reactions to drug (finding) Urticaria active 8 [facility] No Known Allergies Drug allergy (disorder) active 1 Krishna Don Dagmar [facility] Immunizations Combined list of available immunizations from the 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 Immunization Series Date Given Administered By Site Reaction Lot Number CVX Code Drug Paramedic Supervisor Status Comments Source INFLUENZA, SPLIT VIRUS, TRIVALENT, PF 1 2023 140 complet ed HISTORICA L INFORMATI ON - FROM OTHER REGISTRY, [facility] TDAP 2023 DENISE DELAROSA A RIGHT DELTO ID [id number] 115 complet ed Completed Series, [facility] [place], [facility] INFLUENZA, MDCK, QUADRIVALENT, PF 1 2022 171 complet ed HISTORICA L INFORMATI ON - FROM OTHER REGISTRY, [facility] INFLUENZA, UNSPECIFIED FORMULATION 2021 88 complet ed Completed Series, HISTORICA L INFORMATI ON - FROM PATIENT'S RECALL, [facility] COVID-19 (GERALD), VECTOR-NR, [id number], PF, 0.5 ML 1 2020 212 complet ed HISTORICA L INFORMATI ON - FROM OTHER REGISTRY, [facility] INFLUENZA, INJECTABLE, QUADRIVALENT, PRESERVATIVE FREE 2017 150 complet ed [facility] Influenza, seasonal, injectable 0 2015 [id number] 141 [employer] (SEQ) complet ed Influenza , seasonal, injectabl e DoD tuberculin skin test; purified protein derivative solution, intradermal 0 2014 Unknown, Provider [id number] Sanofi Pasteur (PMC) complet ed tuberculi n skin test; purified protein derivativ e solution, intraderm al DoD Influenza, seasonal, injectable 1 2014 Unknown, Provider [id number] 141 [employer] (CSL) complet ed Influenza , seasonal, injectabl e DoD tetanus toxoid, reduced diphtheria toxoid, and acellular pertu is vaccine, adsorbed 0 2014 Unknown, Provider [id number] Sanofi Pasteur ([facility]) complet ed tetanus toxoid, reduced diphtheri a [...] DoD influenza, live, intranasal, quadrivalent 0 2012 [id number] [employer] (MED) complet ed influenza , live, [...] poliovirus vaccine, inactivated 1 2010 Unknown, Provider [id number] Sanofi Pasteur (PMC) complet ed polioviru s vaccine, inactivat ed DoD yellow fever vaccine 1 2010 Unknown, Provider [id number] [employer] ([facility]) complet ed yellow fever vaccine DoD typhoid Vi capsular polysaccharid e vaccine 1 2010 Unknown, Provider [id number] Sanofi Pasteur (PMC) complet ed typhoid Vi capsular polysacch aride vaccine DoD measles, mumps and rubella virus vaccine 1 2010 Unknown, Provider [id number] Merck (MSD) complet ed measles, mumps and rubella virus vaccine DoD influenza virus vaccine, whole virus 1 2010 Unknown, Provider [id number] [facility] ([facility]) complet ed influenza virus vaccine, whole virus DoD meningococcal C conjugate vaccine 1 2010 Unknown, Provider [id number] Sanofi Pasteur (PMC) complet ed meningoco [...] is vaccine, adsorbed 1 2010 Unknown, Provider [id number] 115 [employer] (C[employer]SEL[employer]) [facility] ed tetanus toxoid, reduced diphtheri a toxoid, [...] Nov 22, 2023 09:42 AM Reporting Lab: [facility] [address] [facility] [address] Performing Lab: [facility] [address] [place] [id number] [facility] HYDROXYPRO GESTERONE (PB-STL) 17-HYDROXYP ROGESTERONE [MASS/VOLUM E] [...] Aug 25, 2022 11:36 PM Reporting Lab: [place] [id number] Performing Lab: [address] [facility] PROLACTIN (STL-Eff 12/16) PROLACTIN [MASS/VOLUM E] IN SERUM OR PLASMA 18.50 ng/mL 3.5 - 19.4 09/10 Specimen Type: SERUM No comment entered. Ordering Provider: MACK NICHOLS Report Released Date/Time: Aug 25, 2022 11:36 PM Reporting Lab: [place] [id number] Performing Lab: [address] [place], FREE PANEL TESTOSTERON E [MASS/VOLUM E] IN SERUM OR PLASMA 42 ng/dL 2 - 45 09/10 Specimen Type: SERUM Comment: For additional information, please refer to http://educa tion.userADgents.co m/faq/ TotalTestost eroneLCMSMSF AQ165 (This link is being provided for informationa l/ educational purposes only.) This test was developed and its analytical performance characterist ics have been determined by [employer] [place], [place]. It has not been cleared or approved by the U.S. Food and Drug Administrati on. This assay has been validated pursuant to the CLIA regulations and is used for clinical purposes. Test Performed by [facility], [facility], [address] [place] [address] Christian Hameed M.D., Ph.D., Director of Fl[employer] , CLIA [id number] Ordering Provider: MCAK NICHOLS Report Released Date/Time: Aug 25, 2022 11:36 PM Reporting Lab: [place] [id number] Performing Lab: [address] [facility] TESTOSTERO NE, FREE PANEL ALBUMIN [MASS/VOLUM E] IN SERUM OR PLASMA 4.4 g/dL 3.6 - 5.1 09/10 Specimen Type: SERUM Comment: For additional information, please refer to http://RocketOza [email or web address] [email or web address].[email or web address] m/faq/ TotalTestost eroneLCMSMSF AQ165 (This link is being provided for informationa l/ educational purposes only.) This test was developed and its analytical performance characterist ics have been determined by [employer] [place], [place]. It has not been cleared or approved by the U.S. Food and Drug Administrati on. This assay has been validated pursuant to the CLIA regulations and is used for clinical purposes. Test Performed by [facility], [employer] [place], [address] [place] [address] Christian Hameed M.D., Ph.D., Director of Laboratories , CLIA [id number] Ordering Provider: MACK NICHOLS Report Released Date/Time: Aug 25, 2022 11:36 PM Reporting Lab: [facility] [address] [facility] [address] Performing Lab: [facility] [id number] [place] [address] [facility] TESTOSTERO NE, FREE PANEL TESTOSTERON E FREE [MOLES/VOLU ME] IN SERUM OR PLASMA 6.4 pg/mL 0.2 - 5.0 09/10 H Specimen Type: SERUM Comment: For additional information, please refer to http://RocketOza [email or web address] [email or web address].[email or web address] m/faq/ TotalTestost eroneLCMSMSF AQ165 (This link is being provided for informationa l/ educational purposes only.) This test was developed and its analytical performance characterist ics have been determined by [employer] [place], [place]. It has not been cleared or approved by the U.S. Food and Drug Administrati on. This assay has been validated pursuant to the CLIA regulations and is used for clinical purposes. Test Performed by [employer] [place], [employer] [facility] [place], [address] [place] [address] Christian Hameed M.D., Ph.D., Director of Laboratories , CLIA [id number] Ordering Provider: MACK NICHOLS Report Released Date/Time: Aug 25, 2022 11:36 PM Reporting Lab: [address] [address] Performing Lab: [address] [facility] TESTOSTERO NE, FREE PANEL TESTOSTERON E.FREE+WEAK LY BOUND [MASS/VOLUM E] IN SERUM OR PLASMA 13.0 ng/dL 0.5 - 8.5 09/10 H Specimen Type: SERUM Comment: For additional information, please refer to http://educa tion.userADgents.co m/faq/ TotalTestost eroneLCMSMSF AQ165 (This link is being provided for informationa l/ educational purposes only.) This test was developed and its analytical performance characterist ics have been determined by [employer] [place], [place]. It has not been cleared or approved by the U.S. Food and Drug Administrati on. This assay has been validated pursuant to the CLIA regulations and is used for clinical purposes. Test Performed by [employer] [place] [facility], [address] [place] [address] Christian Hameed M.D., Ph.D., Director of Laboratories , CLIA [id number] Ordering Provider: MACK NICHOLS Report Released Date/Time: Aug 25, 2022 11:36 PM Reporting Lab: [address] [address] Performing Lab: [address] [facility] TESTOSTERO NE, FREE PANEL SEX HORMONE BINDING GLOBULIN [MOLES/VOLU ME] IN SERUM OR PLASMA 23 nmol/L 17 - 124 09/10 Specimen Type: SERUM Comment: For additional information, please refer to http://educa franki.[email or web address].co m/faq/ TotalTestost eroneLCMSMSF AQ165 (This link is being provided for informationa l/ educational purposes only.) This test was developed and its analytical performance characterist ics have been determined by [employer] [place], [place]. It has not been cleared or approved by the U.S. Food and Drug Administrati on. This assay has been validated pursuant to the CLIA regulations and is used for clinical purposes. Test Performed by [facility], [facility], [address] [place] [address] Christian Hameed M.D., Ph.D., Director of Laboratories , CLIA [id number] Ordering Provider: MACK NICHOLS Report Released Date/Time: Aug 25, 2022 11:36 PM Reporting Lab: [facility] [address] [facility] [address] Performing Lab: [facility] [address] [facility] Encounters Combined list of: 1) Encounters from Department of Veterans Affairs facilities going backup to the last 18 months, not all [place] inpatient encounters are included; 2) Encounters from the Department of Defense facilities going backup to 280 months. Location Location Details Encounter Type Encounter Number Reason For Visit Attending Provider ADM Date DC Date Status Disposition Source [facility](Au diology [facility] 1523) OUTPATIENT [id number] JHONATAN CARVAJAL 06/19 Released w/o Limitations [facility]( Audiolo gy [facility] 1523) [facility](Fe male Screening 1523) OUTPATIENT [id number] FANNY Reyna 06/20 Released w/o Limitations [facility]( Female Screeni ng 1523) [facility] Female) OUTPATIENT [id number] CECY Beck 06/20 Released w/o Limitations [facility](Op tometry [facility] 1523) OUTPATIENT [id number] recruit screen DANISH BERG 06/20 Released w/o Limitations [facility] [place]( Optomet ry [facility] 1523) [facility](We ekend Mil Sick Call 1007) OUTPATIENT [id number] cold sx ROSSI ZELDA K 07/08 Sick at Home/Quarter s [facility]( Weekend Mil Sick Call 1007) [facility]( ip 9 Sickcall [place]) OUTPATIENT [id number] F/U flu symptom s SHIREEN LARA 07/10 Released w/o Limitations [facility]( Ship 9 Sickcal l [place] ) [facility] [place](10 07 Phys Therapy) OUTPATIENT [id number] ship 9 sick call PATY WEINSTEIN 07/11 Released with Work/Duty Limitations [facility]( 1007 Phys Therapy ) [facility] [place](Po diatry Clinic [facility] 1007) OUTPATIENT [id number] right ankle SPENSER GARCIA 07/12 Released w/o Limitations [facility]( Podiatr y Clinic [facility] 1007) [facility] [place]( ip 9 Sickcall Vicente) OUTPATIENT [id number] female issues ARTATES, JESSEE F 07/20 Released w/o Limitations [facility]( Ship 9 Sickcal l [place] ) [facility](Me d. Assessmen t/1523) OUTPATIENT [id number] 5-2 TABATHA HAWTHORNE 07/21 Released w/o Limitations [facility]( Med. Assessm ent/152 3) [facility](Me d. Assessmen t/1523) OUTPATIENT [id number] FANNY LOMBARDO 07/21 Released w/o Limitations [facility]( Med. Assessm ent/152 3) [facility]([place] [facility] ) OUTPATIENT [id number] (resche d from Jun 10) REE @ 0835 [facility] 06/19 Released w/o Limitations [facility]([place] [facility]omet ry) [facility](Emergen cy Medicine [facility]) OUTPATIENT [id number] IWONA CAM 09/29 Released w/o Limitations [facility](Aicha rgency Medicin e [facility]) [facility](Hearing Cons [place]) OUTPATIENT [id number] MATILDA MANNING 11/13 Released w/o Limitations [facility](Hea ring Cons [place]) [facility](Me litary Sick Call [facility] 237) OUTPATIENT [id number] ANNETTA Rivera 09/02 Released w/o Limitations [facility]( Militar y Sick Call [facility] 237) [facility](Mi litary Sick Call [facility] 237) OUTPATIENT [id number] Needs to switch control FABBY MURILLO 12/03 Released w/o Limitations [facility]( Militar y Sick Call [facility] 237) [facility]([place] [facility] ) OUTPATIENT [id number] APRIL HUDSON 03/31 Released w/o Limitations [facility](N aval Station Optomet ry) [facility] HC Program) OUTPATIENT [id number] Notes Entered by: KATELYN DONNELLY 09 Apr 2013 0828 ------- ------- ------- ------- -- annual JUAN C DONNELLY 04/09 Released w/o Limitations [facility](N AVSTA HC Program ) [facility] [facility]) OUTPATIENT [id number] CORNELIO Worley 01/21 Released w/o Limitations [facility](N aval Station Physica l Therapy ) [facility]([place] [facility]) OUTPATIENT [id number] ROSA ELENA SIDHU 01/22 Released w/o Limitations [facility]([place] Station Physica l Therapy ) [facility]([place] [facility]) OUTPATIENT [id number] DANISH COWART 01/27 Released w/o Limitations [facility]([place] [facility] Station Physica l Therapy ) [facility]([place] [facility]) OUTPATIENT [id number] JAMES ALVAREZ Bonnie 02/02 Released with Work/Duty Limitations [facility]([place] Station Physica l Therapy ) [facility]([place] [facility]) OUTPATIENT [id number] ABRAN BRICEÑO 02/10 Released w/o Limitations [facility]([place] [facility] Station Physica l Therapy ) [facility]([place] [facility]) OUTPATIENT [id number] f/u CORNELIO Worley 02/15 Released w/o Limitations [facility]([place] aval Station Physica l Therapy ) [facility]([place] Super[place]) OUTPATIENT [id number] PNR SENA BERNABE 03/16 Released w/o Limitations [facility](S D Labor Gang Supervisor Operati ons Center) [facility]([place] Labor Gang Supervisor [place]) OUTPATIENT [id number] Notes Entered by: JANICE CARPENTER 16 Mar 2014 0916 ------- ------- ------- ------- -- PNR TWIN FRANKLIN 03/16 Released w/o Limitations [facility](S D Labor Gang Supervisor [place]) [facility] [facility]) OUTPATIENT [id number] f/u knee/ba CORNELIO Nichols 03/18 Released w/o Limitations [facility](N aval Station Physica l Therapy ) [facility]([place] Super[place]) TELE CONSULT [id number] Notes Entered by: GILBERT MEHTA 19 Mar 2014 1655 ------- ------- ------- ------- -- Low Blood Sugar ETELVINA CAMEJO 03/20 Released to Self Care [facility](S D Labor Gang Supervisor Operati ons Center) [facility]([place] Labor Gang Supervisor Automation Control Technician) OUTPATIENT [id number] NOB LIZA 10/16/14 TIMO JACKSON 04/16 Released w/o Limitations [facility](N TC Labor Gang Supervisor Automation Control Technician ) [facility](NI Fam Med PCMH Tm 2) OUTPATIENT [id number] Cold SX JULIAN HUFFMAN 04/27 Sick at Home/Quarter s [facility](N I Fam Med PCMH Tm 2) [facility]([place] Labor Gang Supervisor Automation Control Technician) OUTPATIENT [id number] lizzie@17+ wks TIMO JACKSON 05/13 Released w/o Limitations [facility](N TC Labor Gang Supervisor Automation Control Technician ) [facility](NI Fam Med PCMH Tm 2) TELE CONSULT [id number] Notes Entered by: NEW FROST 20 May 2014 0803 ------- ------- ------- ------- -- EDF Lower Back Pain, 18 Wks Preg 19 May 2014 JULIAN HUFFMAN 05/20 Referred for Appointment [facility](N I Fam Med PCMH Tm 2) [facility](NI Chiroprac tic Cln) OUTPATIENT [id number] FANNY Clifton 05/24 Released w/o Limitations [facility](N I Chiropr actic Cln) [facility](NI Chiroprac tic Cln) OUTPATIENT [id number] FANNY JO 06/08 Released w/o Limitations [facility](N I Chiropr actic Cln) [facility](NTC Labor Gang Supervisor Automation Control Technician) OUTPATIENT [id number] rob21+w ks TIMO JACKSON 06/11 Released w/o Limitations [facility](N TC Labor Gang Supervisor Automation Control Technician ) [facility](NI Chiroprac tic Cln) OUTPATIENT [id number] FANNY JO 06/22 Released w/o Limitations [facility](N I Chiropr actic Cln) [facility](NI Chiroprac tic Cln) OUTPATIENT [id number] FANNY JO Yoni 07/06 Released w/o Limitations [facility](N I Chiropr actic Cln) [facility] Labor Gang Supervisor Automation Control Technician) TELE CONSULT [id number] Notes Entered by: Shyam DE LA PAZ 13 Jul 2014 1523 ------- ------- ------- ------- -- SPIDER BITE NOW FEELING SICK JAMILA SMITH 07/13 Referred for Appointment [facility](N TC Labor Gang Supervisor Automation Control Technician ) [facility](NI Chiroprac tic Cln) OUTPATIENT [id number] FANNY JO Yoni 07/20 Released w/o Limitations [facility](N I Chiropr actic Cln) [facility](NTC Labor Gang Supervisor Automation Control Technician) OUTPATIENT [id number] lizzie 28+2 wks.. DARYL Cardoso pt 07/26 Released w/o Limitations [facility](N TC Labor Gang Supervisor Automation Control Technician ) [facility](NTC Labor Gang Supervisor Automation Control Technician) OUTPATIENT [id number] Notes Entered by: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 AND/OR STANDING ACTIVITIES 2015 [facility] CHIROPRACTIC MANIPULATIVE TREATMENT (CMT); SPINAL, 3-4 REGIONS 2015 [facility] INSERTION, DRUG-DELIVERY IMPLANT (IE, BIORESORBABLE, BIODEGRADABLE, NON-BIODEGRADABLE) 2015 [facility] THERAPEUTIC PROCEDURE, 1 OR MORE AREAS, EACH 15 MINUTES; THERAPEUTIC EXERCISES TO DEVELOP STRENGTH AND ENDURANCE, RANGE OF MOTION AND FLEXIBILITY 2015 [facility] THERAPEUTIC PROCEDURE, 1 OR MORE AREAS, EACH 15 MINUTES; THERAPEUTIC EXERCISES TO DEVELOP STRENGTH AND ENDURANCE, RANGE OF MOTION AND FLEXIBILITY 2015 [facility] EDUCATIONAL SUPPLIES, SUCH BOOKS, TAPES, AND PAMPHLETS, FOR THE PATIENT'S EDUCATION AT COST TO PHYSICIAN OR OTHER QUALIFIED HEALTH CAMP DISHWASHER 2015 [facility] ELECTROCARDIOGRAM, ROUTINE ECG WITH AT LEAST 12 LEADS; WITH INTERPRETATION AND REPORT 2015 [facility] FITTING OF SPECTACLES, EXCEPT FOR APHAKIA; MONOFOCAL 2015 [facility] VIS FUNCT SCREEN,AUTOMAT/SEMI- AUTOMAT BILAT QUANT DETERM VISUAL ACUITY,OCULAR ALIGN,COLOR VISION,PSEUDOISOCHRO MAT PLATES,& FIELD VIS (MAY INC ALL/SOME SCRN DETERM FOR CONTRAST SENSITIV,VIS UND GLARE) 2015 [facility] VIS FUNCT SCREEN,AUTOMAT/SEMI- AUTOMAT BILAT QUANT DETERM VISUAL ACUITY,OCULAR ALIGN,COLOR VISION,PSEUDOISOCHRO MAT PLATES,& FIELD VIS (MAY INC ALL/SOME SCRN DETERM FOR CONTRAST SENSITIV,VIS UND GLARE) 2015 [facility] AUDIOMETRIC TESTING OF GROUPS 2014 [facility] RESECTION OF APPENDIX, PERCUTANEOUS ENDOSCOPIC APPROACH 2014 [facility] LAPAROSCOPY, SURGICAL, APPENDECTOMY 2014 [facility] IMMUNIZATION ADMINISTRATION (INCLUDES PERCUTANEOUS, INTRADERMAL, SUBCUTANEOUS, OR INTRAMUSCULAR INJECTIONS); 1 VACCINE (SINGLE OR COMBINATION VACCINE/TOXOID) 2014 [facility] BIOPSY OF SKIN, SUBCUTANEOUS TISSUE AND/OR MUCOUS MEMBRANE (INCLUDING SIMPLE CLOSURE),UNLESS OTHERWISE LISTED (SEPARATE PROCEDURE); EACH SEPARATE/ADD LESION (LIST SEP IN ADD TO CODE FOR PRIMARY PROC) 2014 [facility] ECHOCARDIOGRAPHY,TRA NSTHORACIC,REAL-TIME W IMAGE DOCUMENTATION (2D),INCLUDES M-MODE RECORDING,WHEN PERFORMED,COMPLETE,W ITH SPECTRAL DOPPLER ECHOCARDIOGRAPHY,AND W COLOR FLOW DOPPLER ECHOCARDIOGRAPHY 2014 [facility] ELECTROCARDIOGRAM, ROUTINE ECG WITH AT LEAST 12 LEADS; WITH INTERPRETATION AND REPORT 2014 [facility] ULTRASOUND, CHEST (INCLUDES MEDIASTINUM), REAL TIME WITH IMAGE DOCUMENTATION 2014 [facility] INTRAVENOUS INFUSION, HYDRATION; EACH ADDITIONAL HOUR (LIST SEPARATELY IN ADDITION TO CODE FOR PRIMARY PROCEDURE) 2014 [facility] INJECTION OF RH IMMUNE GLOBULIN 2014 [facility] TRANSFUSION OF PACKED CELLS 2014 [facility] LOW CERVICAL SECTION 2014 [facility] OTHER ARTIFICIAL RUPTURE OF MEMBRANES 2014 [facility] MEDICAL INDUCTION OF LABOR 2014 [facility] POSTOPERATIVE FOLLOW-UP VISIT, NORMALLY INCLUDED IN THE SURGICAL PACKAGE, INDICATE THAT EVALUATION & MANAGEMENT SERVICE WAS PERFORMED DURING A POSTOPERATIVE PERIOD REASON RELATED ORIGINAL PROCEDURE 2014 [facility] POSTOPERATIVE FOLLOW-UP VISIT, NORMALLY INCLUDED IN THE SURGICAL PACKAGE, INDICATE THAT EVALUATION & MANAGEMENT SERVICE WAS PERFORMED DURING A POSTOPERATIVE PERIOD REASON RELATED ORIGINAL PROCEDURE 2014 [facility] DELIVERY ONLY 2014 [facility] SUBSEQ CARE VISIT () [EXCLS:PATIENTS WHO ARE SEEN FOR A CONDITION UNREL TO / CARE (EG,AN UP RESPIR INFECT;PATIENTS SEEN FOR CONSULTATION ONLY,NOT FOR CONT CARE)] 2014 [facility] SUBSEQ CARE VISIT () [EXCLS:PATIENTS WHO ARE SEEN FOR A CONDITION UNREL TO / CARE (EG,AN UP RESPIR INFECT;PATIENTS SEEN FOR CONSULTATION ONLY,NOT FOR CONT CARE)] 2014 [facility] NON-STRESS TEST 2014 [facility] SUBSEQ CARE VISIT () [EXCLS:PATIENTS WHO ARE SEEN FOR A CONDITION UNREL TO / CARE (EG,AN UP RESPIR INFECT;PATIENTS SEEN FOR CONSULTATION ONLY,NOT FOR CONT CARE)] 2014 [facility] SUBSEQ CARE VISIT () [EXCLS:PATIENTS WHO ARE SEEN FOR A CONDITION UNREL TO / CARE (EG,AN UP RESPIR INFECT;PATIENTS SEEN FOR CONSULTATION ONLY,NOT FOR CONT CARE)] 2014 [facility] NON-STRESS TEST 2014 [facility] SUBSEQ CARE VISIT () [EXCLS:PATIENTS WHO ARE SEEN FOR A CONDITION UNREL TO / CARE (EG,AN UP RESPIR INFECT;PATIENTS SEEN FOR CONSULTATION ONLY,NOT FOR CONT CARE)] 2014 [facility] CHIROPRACTIC MANIPULATIVE TREATMENT (CMT); SPINAL, 1-2 REGIONS 2014 [facility] IMMUNIZATION ADMINISTRATION (INCLUDES PERCUTANEOUS, INTRADERMAL, SUBCUTANEOUS, OR INTRAMUSCULAR INJECTIONS); 1 VACCINE (SINGLE OR COMBINATION VACCINE/TOXOID) 2014 [facility] RHO(D) IMMUNE GLOBULIN (RHIG), HUMAN, FULL-DOSE, FOR INTRAMUSCULAR USE 2014 [facility] CHIROPRACTIC MANIPULATIVE TREATMENT (CMT); SPINAL, 1-2 REGIONS 2014 [facility] CHIROPRACTIC MANIPULATIVE TREATMENT (CMT); SPINAL, 1-2 REGIONS 2014 [facility] NON-STRESS TEST 2014 [facility] CHIROPRACTIC MANIPULATIVE TREATMENT (CMT); SPINAL, 1-2 REGIONS 2014 [facility] SUBSEQ CARE VISIT () [EXCLS:PATIENTS WHO ARE SEEN FOR A CONDITION UNREL TO / CARE (EG,AN UP RESPIR INFECT;PATIENTS SEEN FOR CONSULTATION ONLY,NOT FOR CONT CARE)] 2014 [facility] CHIROPRACTIC MANIPULATIVE TREATMENT (CMT); SPINAL, 1-2 REGIONS 2014 [facility] EDUCATIONAL SUPPLIES, SUCH BOOKS, TAPES, AND PAMPHLETS, FOR THE PATIENT'S EDUCATION AT COST TO PHYSICIAN OR OTHER QUALIFIED HEALTH CAMP DISHWASHER 2014 [facility] SUBSEQ CARE VISIT () [EXCLS:PATIENTS WHO ARE SEEN FOR A CONDITION UNREL TO / CARE (EG,AN UP RESPIR INFECT;PATIENTS SEEN FOR CONSULTATION ONLY,NOT FOR CONT CARE)] 2014 [facility] ULTRASOUND, UTERUS, REAL TIME WITH IMAGE DOCUMENTATION, LIMITED (EG, HEART BEAT, PLACENTAL LOCATION, POSITION AND/OR QUALITATIVE AMNIOTIC FLUID VOLUME), 1 OR MORE FETUSES 2014 [facility] PHYSICAL THERAPY RE-EVALUATION 2014 [facility] ULTRASOUND, UTERUS, REAL TIME WITH IMAGE DOCUMENTATION, AND MATERNAL EVALUATION, FIRST TRIMESTER (< 14 WEEKS 0 DAYS), TRANSABDOMINAL APPROACH; SINGLE OR FIRST GESTATION 2014 [facility] SELF-CARE/HOME MANAGMENT TRAIN (EG,ACT OF DAILY LIVING (ADL) &COMPENSAT TRAIN,MEAL PREPARATION,SAFETY PROCS,AND INSTRUCT IN USE OF ASST TECHNOLOGY DEV/ADPT EQUIP) DIR ONE-ON-ONE CONT,EA 15 MINUTES 2013 [facility] THERAPEUTIC PROCEDURE, 1 OR MORE AREAS, EACH 15 MINUTES; THERAPEUTIC EXERCISES TO DEVELOP STRENGTH AND ENDURANCE, RANGE OF MOTION AND FLEXIBILITY 2013 [facility] THERAPEUTIC ACTIVITIES, DIRECT (ONE-ON-ONE) PATIENT CONTACT (USE OF DYNAMIC ACTIVITIES TO IMPROVE FUNCTIONAL PERFORMANCE), EACH 15 MINUTES 2013 [facility] APPLICATION OF A MODALITY TO 1 OR MORE AREAS; HOT OR COLD PACKS 2013 [facility] THERAPEUTIC ACTIVITIES, DIRECT (ONE-ON-ONE) PATIENT CONTACT (USE OF DYNAMIC ACTIVITIES TO IMPROVE FUNCTIONAL PERFORMANCE), EACH 15 MINUTES 2013 [facility] SELF-CARE/HOME MANAGMENT TRAIN (EG,ACT OF DAILY LIVING (ADL) &COMPENSAT TRAIN,MEAL PREPARATION,SAFETY PROCS,AND INSTRUCT IN USE OF ASST TECHNOLOGY DEV/ADPT EQUIP) DIR ONE-ON-ONE CONT,EA 15 MINUTES 2013 [facility] AUDIOMETRIC TESTING OF GROUPS 2013 [facility] FITTING OF SPECTACLES, EXCEPT FOR APHAKIA; MONOFOCAL 2013 [facility] IMMUNIZATION ADMINISTRATION BY INTRANASAL OR ORAL ROUTE; 1 VACCINE (SINGLE OR COMBINATION VACCINE/TOXOID) 2012 [facility] TOBACCO USE CESSATION INTERVENTION, COUNSELING (COPD, CAP, CAD, ASTHMA) (DM) (PV) 2012 [facility] THERAPEUTIC, PROPHYLACTIC, OR DIAGNOSTIC INJECTION (SPECIFY SUBSTANCE OR DRUG); SUBCUTANEOUS OR INTRAMUSCULAR 2010 [facility] SKIN TEST; TUBERCULOSIS, INTRADERMAL 2010 [facility] THERAPEUTIC PROCEDURE, 1 OR MORE AREAS, EACH 15 MINUTES; THERAPEUTIC EXERCISES TO DEVELOP STRENGTH AND ENDURANCE, RANGE OF MOTION AND FLEXIBILITY 2010 [facility] SCREENING PAPANICOLAOU SMEAR; OBTAINING, PREPARING AND CONVEYANCE OF CERVICAL OR VAGINAL SMEAR TO LABORATORY 2010 [facility] IMMUNIZATION ADMINISTRATION (INCLUDES PERCUTANEOUS, INTRADERMAL, SUBCUTANEOUS, OR INTRAMUSCULAR INJECTIONS); 1 VACCINE (SINGLE OR COMBINATION VACCINE/TOXOID) 2010 [facility] OPHTHALMOLOGICAL SERVICES: MEDICAL EXAMINATION AND EVALUATION WITH INITIATION OF DIAGNOSTIC AND TREATMENT PROGRAM; COMPREHENSIVE, NEW PATIENT, 1 OR MORE VISITS 2010 [facility] AUDIOMETRIC TESTING OF GROUPS 2010 [facility] SKIN TEST; TUBERCULOSIS, INTRADERMAL 2010 [facility] Audiometry Group Testing Audiometry Group Testing 49850 2013 JUAN C DONNELLY [facility] Determination Of Refractive State Determination Of Refractive State 54702 2013 CHRISTAL MARCUM [facility] Spectacles Services Fitting Monofocals (Not For Aphakia) Spectacles Services Fitting Monofocals (Not For Aphakia) 06304 2013 CHRISTAL MARCUM [facility] Ophthalmological New Patient Start Comprehensive Care Ophthalmological New Patient Start Comprehensive Care 60949 2013 CHRISTAL MARCUM [facility] Intervention And Counseling On Ce ation Of Tobacco Use Intervention And Counseling On Cessation Of Tobacco Use 4000F 2012 ANNETTA FROST [facility] current smoker current smoker [id number] 2012 ANNETTA FROST [facility] Audiometry Group Testing Audiometry Group Testing [id number] 2011 MATILDA MANNING Audiogram (Screening) Audiogram (Screening) 67106 2011 MATILDA MANNING Ophthalmological New Patient Start Comprehensive Care Ophthalmological New Patient Start Comprehensive Care 91506 2011 [facility] Determination Of Refractive State Determination Of Refractive State 52727 2011 [facility] Fitting Monofocals (Not For Aphakia) Spectacles Services Fitting Monofocals (Not For Aphakia) [address] Supervised Injection Intramuscular Supervised Injection Intramuscular 99379 2010 LIOR HERNANDEZ Physical Therapy: ___ Se ion Segments, 15 Minutes Each Physical Therapy: ___ Session Segments, 15 Minutes Each [id number] 2010 PATY WEINSTEIN Lift, elevation, heel, per inch 2010 SPENSER GARCIA Screening papanicolaou smear; obtaining, preparing and conveyance of cervical or vaginal smear to laboratory 2010 FANNY LOMBARDO Ophthalmological New Patient Start Comprehensive Care Ophthalmological New Patient Start Comprehensive Care [id number] 2010 DANISH BERG Threshold Audiogram (Pure Tone) Threshold Audiogram (Pure Tone) 30366 2010 JHONATAN CARVAJAL Audiometry Group Testing Audiometry Group Testing 00133 2010 JHONATAN CARVAJAL Visual Function Screening Visual Function Screening 29693 2016 SLIM POWELL Audiometry Group Testing Audiometry Group Testing 10828 2016 CORNELIO HANDLEY Physical Medicine Physical Therapy Re-Evaluation Physical Medicine Physical Therapy Re-Evaluation 78655 2015 ALISA FERRARA Modalities Heat Hot Packs Modalities Heat Hot Packs 11593 2015 CAROLYNE MA Mobilization Soft Ti ue Mobilization Soft Tissue 88937 2015 CAROLYNE MA Physical Therapy Mobilization Joint Physical Therapy Mobilization Joint 13348 2015 CAROLYNE MA Exercises A isted Exercises For ROM Exercises Assisted Exercises [place] ROM 62158 2015 CAROLYNE MA DoD Modalities Heat Hot Packs Modalities Heat Hot Packs 59871 2015 LAMSEN, EL V DoD Physical Therapy Mobilization Joint Physical Therapy Mobilization Joint 44196 2015 LAMSEN, EL V DoD Exercises A isted Exercises For ROM Exercises Assisted [place]ercises [place] ROM 92248 2015 LAMSEN, EL V DoD Physical Therapy: ___ Se ion Segments, 15 Minutes Each Physical Therapy: ___ Session Segments, 15 Minutes Each 44593 2015 LAMSEN, EL V DoD Mobilization Soft Ti ue Mobilization Soft Tissue 63819 2015 CAROLYNE MA Modalities Heat Hot Packs Modalities Heat Hot Packs 75987 2015 CAROLYNE MA Exercises A isted Exercises For ROM Exercises Assisted Exercises For ROM 23822 2015 CAROLYNE MA Physical Medicine Physical Therapy Re-Evaluation Physical Medicine Physical Therapy Re-Evaluation 77139 2015 ALISA FERRARA Exercises A isted Exercises For ROM Exercises Assisted [place] 33426 2015 CAROLYNE MA Modalities Electrical Stimulation Unattended Modalities Electrical Stimulation Unattended 44156 2015 CAROLYNE MA Modalities Heat Hot Packs Modalities Heat Hot Packs 90267 2015 CAROLYNE MA Immunization Administration One Vaccine Immunization Administration One Vaccine 72296 2015 MASOUD GARCIA Influenza Split (Injectable); Series #: 1; .5 mL; IM; Unkown Arm; Mfg: [employer] Lot: [id number]; Exp. [id number]. DoD Modalities Electrical Stimulation Unattended Modalities Electrical Stimulation Unattended 13705 2015 LAMSEN, EL V DoD Modalities Heat Hot Packs Modalities Heat Hot Packs 40693 2015 LAMSEN, EL V DoD Exercises A isted Exercises For ROM Exercises Assisted Exercises For ROM 30573 2015 LAMSEN, EL V DoD Physical Therapy: ___ Se ion Segments, 15 Minutes Each Physical Therapy: ___ Session Segments, 15 Minutes Each 26347 2015 LAMSEN, EL V DoD Exercises A isted Exercises For ROM Exercises Assisted Exercises For ROM 95836 2015 CAROLYNE MA Modalities Electrical Stimulation Unattended Modalities Electrical Stimulation Unattended 81897 2015 CAROLYNE MA DoD Modalities Heat Hot Packs Modalities Heat Hot Packs 52068 2015 CAROLYNE MA Modalities Electrical Stimulation Modalities Electrical Stimulation 68500 2015 LAMSEN, EL V DoD Modalities Heat Hot Packs Modalities Heat Hot Packs 74281 2015 LAMSEN, EL V Alfredo Exercises A isted Exercises For ROM Exercises Assisted Exercises For ROM 62270 2015 LAMSEN, EL V Alfredo Physical Therapy: ___ Se ion Segments, 15 Minutes Each Physical Therapy: ___ Session Segments, 15 Minutes Each 16361 2015 LAMKARIN EL V Alfredo Exercises A isted Exercises For ROM Exercises Assisted Exercises For ROM 17486 2015 CAROLYNE MA Modalities Heat Hot Packs Modalities Heat Hot Packs 51745 2015 CAROLYNE MA Exercises A isted Exercises For ROM Exercises Assisted Exercises For ROM 09954 2015 CAROLYNE MA Physical Therapy: ___ Se ion Segments, 15 Minutes Each Physical Therapy: ___ Session Segments, 15 Minutes Each 79458 2015 ALISA FERRARA Therex x 15 minutes; those listed as Home Exercise Program DoD Physical Medicine Physical Therapy Evaluation Physical Medicine Physical Therapy Evaluation 38020 2015 ALISA FERRARA Exercises A isted Exercises For ROM Exercises Assisted [place] ROM 95307 2015 CAROLYNE MA Exercises A isted Exercises For ROM Exercises Assisted Exercises [place] ROM 19610 2015 CAROLYNE MA Physical Therapy: ___ Se ion Segments, 15 Minutes Each Physical Therapy: ___ Session Segments, 15 Minutes Each 27795 2015 ALISA FERRARA Therex x 15 minutes; those listed as Home Exercise Program Alfredo Osteopathic Manip Treatment (OMT) 1-2 Body Regions Involved Osteopathic Manip Treatment (OMT) 1-2 Body Regions Involved 10000 2015 ALISA FERRARA OMT to t-spine in prone and supine; multiple cavitations heard [facility] Physical Medicine Physical Therapy Re-Evaluation Physical Medicine Physical Therapy Re-Evaluation 03580 2015 ALISA FERRARA Chiropractic Manip Treatmt (CMT) Spinal One To Two Regions Chiropractic Manip Treatmt (CMT) Spinal One To Two Regions 62149 2015 FANNY JO Supine and side-lying SMT to C-spine and pelvis [facility] Physical Therapy Neuromuscular Re-education Physical Therapy Neuromuscular Re-education 39261 2015 JEANCARLOS LIN Physical Therapy: ___ Se ion Segments, 15 Minutes Each Physical Therapy: ___ Session Segments, 15 Minutes Each 57157 2015 JEANCARLOS LIN Chiropractic Manip Treatmt (CMT) Spinal Three To Four Region Chiropractic Manip Treatmt (CMT) Spinal Three To Four Region 65735 2015 FANNY JO Supine and side-lying SMT to C/T/L-spine, left 3rd rib and pelvis [facility] Implantable Contraceptive Capsules - Insertion 2015 BORIS [...] Therapy: ___ Session Segments, 15 Minutes Each 19369 2015 JULIA GUERRERO Therex x 15 min; those listed as HEP [facility] Physical Medicine Physical Therapy Evaluation Physical Medicine Physical Therapy Evaluation 79857 2015 JULIA GUERRERO Exercises A isted Exercises For ROM Exercises Assisted Exercises For ROM 55144 2015 FANNY JO 8 minutes: Strengthening: Pelvic tilt, crunches, Postural and scapular stabilization basics Stretching: iformisAlfredo Chiropractic Manip Treatmt (CMT) Spinal Three To Four Region Chiropractic Manip Treatmt (CMT) Spinal Three To Four Region 96891 2015 FANNY JO Supine SMT to upper C-spine and left 3rd rib. Side-lying SMT to L5 and pelvis; ART to left piriformis. Alfredo Gay-[facility] Services Provision Of Educational Supplies -Supervised Services Provision Of Educational Supplies 16424 2015 FANNY JO Printed home exercise instructions. Alfredo Exercises A isted Exercises For ROM Exercises Assisted Exercises For ROM 23961 2015 FANNY JO 8 minutes: Strengthening: Pelvic tilt, crunches, Postural and scapular stabilization basics Stretching: Alfredo Shipman Chiropractic Manip Treatmt (CMT) Spinal Three To Four Region Chiropractic Manip Treatmt (CMT) Spinal Three To Four Region 80875 2015 FANNY JO Supine and side-lying SMT to C/T/L-spine, ribs and pelvis Alfredo [employer] Fitting Monofocals (Not For Aphakia) [employer] [facility] Fitting Monofocals (Not For Aphakia) 80294 2015 SHERLYN ALEJANDRO Determination Of Refractive State Determination Of Refractive State 64649 2015 SHERLYN ALEJANDRO [facility] Ophthalmological New Patient Start Comprehensive Care Ophthalmological New Patient Start Comprehensive Care 81112 2015 SHERLYN ALEJANDRO [facility] Visual Function Screening Visual Function Screening 85775 2015 JUAN CARLOS KEARNS [facility] Visual Function Screening Visual Function Screening 02985 2015 SHERLYN ALEJANDRO [facility] Audiometry Group Testing Audiometry Group Testing 71268 2014 SHERLYN GANN V [facility] Skin Test Anergy Tuberculin Intradermal Skin Test Anergy Tuberculin Intradermal 07809 2014 ELY ZARATE IPPD; Series #: 1; .1 mL; ID; Left Arm; Mfg: [employer]; Lot: [id number]. [facility] Vaccines Vaccines 05017 2014 ELY ZARATE Influenza Split (Injectable); Series #: 1; .5 mL; IM; Left Arm; Mfg: [employer].; Lot: [id number]. [facility] Immunization Administration One Vaccine Immunization Administration One Vaccine 28141 2014 ELY ZARATE [facility] Biopsy Skin Each Additional Lesion Biopsy Skin Each Additional Lesion 2014 HECTOR LAMAS [facility] Biopsy Skin Biopsy Skin 2014 HECTOR LAMAS [...] CALL PATIENT WITH PATH RESULTS WHEN AVAILABLE. [facility] Electrocardiogram Electrocardiogram 39294 12/07 JULIO CÉSAR ESTEBAN [facility] OB Services Antepartum Care Only Subsequent Single Visit OB Services Antepartum Care Only Subsequent Single Visit 0502F 2014 DARYL LÓPEZ [facility] OB Services Antepartum Care Only Subsequent Single Visit OB Services Antepartum Care Only Subsequent Single Visit 0502F 2014 ESCAMILLAZENA Boss [facility] OB Services Antepartum Care Only Subsequent Single Visit OB Services Antepartum Care Only Subsequent Single Visit 0502F 2014 ANDI ZENA Arian [facility] OB Services Antepartum Care Only Subsequent Single Visit OB Services Antepartum Care Only Subsequent Single Visit 0502F 2014 DARYL LÓPEZ OB Services Antepartum Care Only Subsequent Single Visit OB Services Antepartum Care Only Subsequent Single Visit 0502F 2014 DARYL LÓPEZ Chiropractic Manip Treatmt (CMT) Spinal One To Two Regions Chiropractic Manip Treatmt (CMT) Spinal One To Two Regions 09483 2014 FANNY JO Side-lying SMT to L-spine and pelvis after ART to piriformis bilaterally and left iliolumbar multifiddii. [facility] Immunization Administration One Vaccine Immunization Administration One Vaccine 28434 2014 ROSA ELENA GOODWIN Tdap Vaccine Seven Years Of Age And Above Tdap Vaccine Seven Years Of Age And Above 26666 2014 ROSA ELENA GOODWIN Rho D Immune Globulin (Human) Intramuscular Use Full-dose Rho D Immune Globulin (Human) Intramuscular Use Full-dose 88970 2014 SYMONE TALAVERA Chiropractic Manip Treatmt (CMT) Spinal One To Two Regions Chiropractic Manip Treatmt (CMT) Spinal One To Two Regions 82366 2014 FANNY JO Supine and side-lying SMT to C/T/L-spine, ribs and pelvis; ART to left piriformis [facility] Chiropractic Manip Treatmt (CMT) Spinal One To Two Regions Chiropractic Manip Treatmt (CMT) Spinal One To Two Regions 04443 2014 FANNY JO Side-lying SMT to L-spine and pelvis after ART to multifiddii and piriformis, instructed in sitting multifiddii stretch. [facility] Chiropractic Manip Treatmt (CMT) Spinal One To Two Regions Chiropractic Manip Treatmt (CMT) Spinal One To Two Regions 74500 2014 FANNY JO Supine and side-lying SMT to T/L-spine and pelvis after ART to hip flexors and piriformis Alfredo OB Services Antepartum Care Only Subsequent Single Visit OB Services Antepartum Care Only Subsequent Single Visit 0502F 2014 TIMO JACKSON Chiropractic Manip Treatmt (CMT) Spinal One To Two Regions Chiropractic Manip Treatmt (CMT) Spinal One To Two Regions 58807 2014 FANNY JO Side-lying SMT to L-spine and pelvis; ART to lumbar multifiddii and instruction in stretching multifiddi, recumbant and seated positions. Alfredo Gay-Supervised Services Provision Of Educational Supplies -Supervised Services Provision Of Educational Supplies 00285 2014 FANNY JO Printed home exercise instructions Alfredo Exercises A isted Exercises For ROM Exercises Assisted Exercises For ROM 54661 2014 FANNY JO 8 minutes: Stretching: Piriformis, after ART to piriformis and right psoas. Alfredo Chiropractic Manip Treatmt (CMT) Spinal One To Two Regions Chiropractic Manip Treatmt (CMT) Spinal One To Two Regions 73544 2014 FANNY JO Side-lying SMT to pelvis. Alfredo OB Services Antepartum Care Only Subsequent Single Visit OB Services Antepartum Care Only Subsequent Single Visit 0502F 2014 TIMO JACKSON Ultrasound Obstetric Limited Evaluation Ultrasound Obstetric Limited Evaluation 59296 2014 TIMO JACKSON OB Services Antepartum Care Only First Visit, With Report OB Services Antepartum Care Only First Visit, With Report 0500F 2014 TIMO JACKSON Mobilization Soft Ti ue Mobilization Soft Tissue 98114 2014 CORNELIO MERCER Physical Medicine Physical Therapy Re-Evaluation Physical Medicine Physical Therapy Re-Evaluation 03942 2014 CORNELIO MERCER Transabdominal Ultrasound Single Or First Gestation Transabdominal Ultrasound Single Or First Gestation 48826 2014 SENA BERNABE Phys Therapy Education Self Care Training - Per 15 Minutes Phys Therapy Education Self Care Training - Per 15 Minutes 50419 2013 GIANFRANCO JOINER Exercises A isted Exercises For ROM Exercises Assisted [place]ercises [place] ROM 25404 2013 GIANFRANCO JOINER Physical Medicine Physical Therapy Re-Evaluation Physical Medicine Physical Therapy Re-Evaluation 40449 2013 GIANFRANCO JOINER [facility] Physical Therapy: ___ Se ion Segments, 15 Minutes Each Physical Therapy: ___ Session Segments, 15 Minutes Each 59135 2013 ABRAN BRICEÑO [facility] PT A e ment Kinetic Training PT Assessment Kinetic Training 58029 2013 JAMES ALVAREZ V [facility] Modalities Cryotherapy Cold Packs Modalities Cryotherapy Cold Packs 05079 2013 DANISH COWART [facility] Physical Therapy: ___ Se ion Segments, 15 Minutes Each Physical Therapy: ___ Session Segments, 15 Minutes Each 62354 2013 DANISH COWART [facility] Physical Therapy: ___ Se ion Segments, 15 Minutes Each Physical Therapy: ___ Session Segments, 15 Minutes Each 43948 2013 ROSA ELENA SIDHU [facility] PT A e ment Kinetic Training PT Assessment Kinetic Training 35090 2013 ROSA ELENA SIDHU Phys Therapy Education Self Care Training - Per 15 Minutes Phys Therapy Education Self Care Training - Per 15 Minutes 94308 2013 GIANFRANCO JOINER Exercises A isted Exercises For ROM Exercises Assisted Exercises For ROM 69886 2013 GIANFRANCO JOINER Physical Medicine Physical Therapy Evaluation Physical Medicine Physical Therapy Evaluation 83953 2013 GIANFRANCO JOINER [facility] Social History Combined list of available smoking, tobacco, and other social history from 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 Social History Type Response Date Comment Sourc e Tobacco smoking status NHIS VA-TOBACCO FORMER USER 11/27/2023 [facility] History of tobacco use LA-TOBACCO QUIT 5 TO < 15 YRS 11/27/2023 [facility] History of tobacco use VA-TOBACCO QUIT 5 TO < 15 YRS 01/30/2023 [facility] History of tobacco use VA-TOBACCO FORMER USER 02/07/2022 [facility] History of tobacco use VA-TOBACCO FORMER USER 11/28/2018 [facility] History of tobacco use VA-TOBACCO FORMER USER 02/28/2018 [facility] History of tobacco use VA-TOBACCO FORMER USER 12/13/2017 [facility] History of tobacco use QUIT TOBACCO >12 MO and <7 YRS AGO 11/04/2017 [facility] History of tobacco use QUIT TOBACCO >12 MO and <7 YRS AGO 07/04/2017 [facility] This section is an empty social history section. [facility] Plan of Care List of future care activities from Department of 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 Additional future care activities may be listed in the Assessment and Plan section. Date/Time Care Activity Care Activity Detail Facili ty 08/26/2024 AMBULATORY - MEDICINE AMBULATORY - [facility]ICI [facility]
[2024-08-22 22:35] VITALS: BP 143/94; PULSE 67; RESP 18; O2SAT 97
== END 2024-08-22 22:35 | disposition home or self-care (01) ==
PROVIDERS: Emergency Provider Emergency Medicine; PCP Nurse Practitioner Family
DX: S09.90XA Unspecified injury of head, initial encounter (principal); Z87.891 Personal history of nicotine dependence; W22.8XXA Striking against or struck by other objects, initial encounter
CPT/HCPCS: 70450; 99284

== ENCOUNTER 2024-09-22 09:22 | Outpatient (CLI) | payer OTHER, SELFPAY ==
--- NOTE | ~2024-09-22 | XR_ITS ---
AP and lateral views of the right hip Clinical history: Pain Findings: No acute fracture or dislocation is seen. Osseous alignment is anatomic. Right hip joint is intact. Soft tissues are unremarkable. Impression: No significant abnormality is seen. Reviewed, dictated and finalized at location M. Impression: No significant abnormality is seen.
== END 2024-09-22 09:23 | disposition home or self-care (01) ==
PROVIDERS: PCP Chiropractor; Visit Provider Chiropractor
DX: M25.551 Pain in right hip (principal)
CPT/HCPCS: 73502

== ENCOUNTER 2024-10-05 20:30 | Emergency (ER) | payer OTHER, SELFPAY ==
--- OUTSIDE RECORDS SUMMARY | 2024-10-05 20:33 | XMS_ITS ---
Author Name [facility] [place] [facility] [place] Address [address] [place] [address] Care Team Providers Care Open Hearth Melter Name Role Phone CHANDU MONET Primary Care Provider Unavailherb ble Insurance Providers: All historical and current Section [...] TER & EMPLO YERS Mar 11, 2018 [id number] [phone] AXEL VELÁSQUEZ SPOUSE [place] PREFERRED PROVIDER ORGANIZAT ION (PPO) TEAMS TER + EMPLO YERS Mar 11, 2018 [id number] [phone] AXEL VELÁSQUEZ SPOUSE LDI RX PRESCRIPT ION TEAMS TER & EMPLO YERS Mar 11, 2018 [id number] [phone] AGUSTINA VELÁSQUEZY SPOUSE Selected Encounter This section includes the information on record at [place] for the Encounter. Date/Time Encounter Type Encounter Description Reason Provider Source Sep 18, 2024 11:00 AM OFFICE O/P EST HI 40 MIN PRIMARY CARE/MEDICINE ICD-10-CM I10 Essential (primary) hypertension TED MONET E Encounter Template Text not used by [place] Assessments - Encounter Diagnoses This section includes the primary and secondary diagnoses documented for the Encounter. Date/Time Primary/Secondary Diagnosis Diagnosis Name Provider Source Sep 18, 2024 12:58 PM PRIMARY Essential (primary) hypertension STEPHANIE MONET [facility] Sep 18, 2024 12:58 PM SECONDARY Calculus of gallbladder w/o cholecystitis w/o obstruction [facility] Sep 18, 2024 12:58 PM SECONDARY Encounter for routine follow-up [facility] Sep 18, 2024 12:58 PM SECONDARY Other pulmonary embolism without acute cor pulmonale [facility] Sep 18, 2024 12:58 PM SECONDARY Pain in right hip STEPHANIE MONET [facility] Sep 18, 2024 12:58 PM SECONDARY Polycystic ovarian syndrome STEPHANIE MONET [facility] Sep 18, 2024 12:58 PM SECONDARY Unspecified pre-eclampsia, unspecified trimester STEPHANIE MONET [facility] Plan of Treatment: Future Appointments (+ 6 months) and Future Tests (+/- 45 days) The Plan of Treatment section includes future care activities for the patient from all [place] treatmentfacilities. This section includes future appointments and future orders which are active, pending or scheduled. Future Appointments This section includes appointments that were scheduled to occur 6 months from the date of the Encounter, up to a maximum of 20 appointments. The data comes from all [place] treatment facilities. Appointment Date/Time Appointment Type Appointme nt Facility Name Sep 28, 2024 02:00 PM AMBULATORY - MEDICINE [facility] Oct 07, 2024 07:30 AM AMBULATORY - NONE [facility] Oct 12, 2024 03:15 PM AMBULATORY - MEDICINE [facility] Oct 14, 2024 09:00 AM AMBULATORY - MEDICINE [facility] Mar 19, 2025 11:00 AM AMBULATORY - MEDICINE [facility] Active, Pending, and Scheduled Orders This section includes a listing of several types of active, pending, and scheduled orders, including clinic medications orders, diagnostic test orders, procedure orders and consult orders; where the start date of the order is 45 days before the date of the Encounter or 45 days after the date of theEncounter. The data comes from all [place] treatment facilities. Test Date/Time Test Type Test Details Facility Name Sep 18, 2024 12:00 AM Imaging - General Radiology Order HIP W/PELVIS 2-3 VIEWS RIGHT RIGHT, Frog, AP Pelvis [facility] Sep 29, 2024 08:49 AM Laboratory - Chemistry Order ANTI-MITOCHONDRIAL AB (STL-PB) GOLD/RED SST SERUM SP [facility] Sep 29, 2024 08:49 AM Laboratory - Chemistry Order ACTIN (SMOOTHMUSCLE) ANTIBODY IGG GOLD/RED SST SERUM SP [facility] Sep 29, 2024 08:49 AM Laboratory - Chemistry Order ERYTHROPOIETIN GOLD/RED SST SERUM SP [facility] Sep 29, 2024 08:49 AM Laboratory - Chemistry Order JAK2 MUTATION (STL) LAVENDER BLOOD PLASMA SP [facility] Sep 29, 2024 08:49 AM Laboratory - Chemistry Order CELIAC DISEASE PANEL (STL-MRN) GOLD/RED SST SERUM SP ONCE [facility] Oct 07, 2024 12:00 AM Imaging - Ultrasound Order US ABDOMEN COMPLETE W/BLOOD FLOW DOPPLER (STL) [facility] Lab Results: +/- 30 days of the encounter This section includes the Chemistry and Hematology Lab Results on record with [place] for the patient. Radiology Reports and Pathology Reports are provided separately, in subsequent sections. Lab Results This section contains the Chemistry/Hematology Results that were resulted 30 days before or 30 daysafter the date of the Encounter. Date/Time Source Result Type Result - Unit Interpretation Reference Range Specimen Type Comment Sep 29, 2024 08:49 AM [facility] CERULOPLASMIN (L-PB) SERUM Specimen Type: SERUM Comment: Test Performed by [email or web address], [email or web address], [address] [place] [address] Christian Hameed M.D., Ph.D., Director of Laboratories , CLIA [id number] Ordering Provider: CHANDU MONET Report Released Date/Time: Sep 28, 2024 11:53 AM Reporting Lab: [facility] [address] [facility] [address] Performing Lab: [facility] [id number] [place] [address] CERULOPLASMIN (STL-PB) 41 mg/dL 14-48 Sep 29, 2024 08:49 AM [facility] ANTI-NUCLEAR ANTIBODY (STL-PB) SERUM Specimen Type: SERUM No comment entered. Ordering Provider: CHANDU MONET Report Released Date/Time: Sep 28, 2024 11:53 AM Reporting Lab: [address] [address] Performing Lab: [address] [address] ANTI-NUCLEAR ANTIBODY (STL-PB) NEGATIVE Sep 29, 2024 08:49 AM [facility] HEP C Ab HCV Ab (STL) SERUM Specimen Type: SE RUM No comment entered. Ordering Provider: CHANDU MONET Report Released Date/Time: Sep 28, 2024 11:53 AM Reporting Lab: [address] [address] Performing Lab: [address] [address] HEP C Ab HCV Ab (STL) Nonreactive Nonrea ctive Sep 29, 2024 08:49 AM [facility] IRON/TIBC PROFILE SERUM Specimen Type: SERUM No comment entered. Ordering Provider: CHANDU MONET Report Released Date/Time: Sep 28, 2024 11:53 AM Reporting Lab: [facility] [address] [place] [phone] Performing Lab: [address] [address] TIBC 446 ug/dL 250-450 TRANSFERRIN 357 mg/dL 173-360 IRON SATURATION 15 L 20-50 IRON 65 ug/dL 50-170 Sep 29, 2024 08:49 AM [facility] IGG (STL) SERUM Specimen Type: SERUM No comment entered. Ordering Provider: CHANDU MONET Report Released Date/Time: Sep 28, 2024 11:53 AM Reporting Lab: [place] [address] [facility] [address] Performing Lab: [address] [address] IGG (STL) 1012 mg/dL 540-1822 Sep 29, 2024 08:49 AM [facility] HEP HB S Ag (AUSRIA) (STL) SERUM Specimen Typ e: SERUM No comment entered. Ordering Provider: CHANDU MONET Report Released Date/Time: Sep 28, 2024 11:53 AM Reporting Lab: [place] [address] [facility] [address] Performing Lab: [address] [address] HEP HB S Ag (A[place]RIA) (STL) Nonreactive N onreactive Sep 29, 2024 08:49 AM [facility] HEPATITIS B SURFACE AB PNL SERUM Specimen Typ e: SERUM Comment: Clinical correlation suggested. Please submit new specimen. Clinical correlation suggested. Ordering Provider: CHANDU MONET Report Released Date/Time: Sep 28, 2024 11:53 AM Reporting Lab: [place] [address] [facility] [address] Performing Lab: [place] [address] [facility] [address] HEP B Surface Ab-HBsAB (STL) INDETERMINANT m[IU] /mL Nonreactive HEP Bs AB-QUANT (STL) 8.41 m[IU]/mL Sep 29, 2024 08:49 AM [facility] HEP B CORE AB TOTAL. (STL) SERUM Specimen Typ e: SERUM No comment entered. Ordering Provider: CHANDU MONET Report Released Date/Time: Sep 28, 2024 11:53 AM Reporting Lab: [facility] [address] [facility] [address] Performing Lab: [facility] [address] [place] [phone] HEP B CORE AB TOTAL. (STL) Nonreactive N onreactive Sep 29, 2024 08:49 AM [facility] HEPATITIS A IGG AB (STL) SERUM Specimen Type: SERUM Comment: Clinical correlation suggested. Ordering Provider: CHANDU MONET Report Released Date/Time: Sep 28, 2024 11:53 AM Reporting Lab: [address] [address] Performing Lab: [address] [address] HEPATITIS A IGG AB (STL) REACTIVE Nonrea ctive Sep 29, 2024 08:49 AM [facility] ALPHA-1 ANTITRYPSIN (STL-PB) SERUM Specimen T ype: SERUM No comment entered. Ordering Provider: CHANDU MONET Report Released Date/Time: Sep 28, 2024 11:53 AM Reporting Lab: [facility] [address] [facility] [address] Performing Lab: [address] [address] ALPHA-1 ANTITRYPSIN (STL-PB) 159 mg/dL 8 4-200 Sep 29, 2024 08:49 AM [facility] FERRITIN SERUM Specimen Type: SERUM No comment entered. Ordering Provider: CHANDU MONET Report Released Date/Time: Sep 28, 2024 11:53 AM Reporting Lab: [place] [address] [facility] [address] Performing Lab: [address] [address] FERRITIN 58.54 ng/mL 10-204 Sep 29, 2024 08:49 AM [facility] LIPASE PLASMA Specimen Type: PLASM A No comment entered. Ordering Provider: CHANDU MONET Report Released Date/Time: Sep 28, 2024 11:54 AM Reporting Lab: [facility] [facility] [phone] Performing Lab: [facility] [address] LIPASE 21 U/L 8-78 Sep 29, 2024 08:49 AM [facility] AMYLASE PLASMA Specimen Type: PLASM A No comment entered. Ordering Provider: CHANDU MONET Report Released Date/Time: Sep 28, 2024 11:54 AM Reporting Lab: [facility] [address] Performing Lab: [facility] [facility] [address] AMYLASE 64 U/L 25-125 Sep 29, 2024 08:49 AM [facility] HEPATIC FUNTION PANEL (STL) PLASMA Specimen Ty pe: PLASMA No comment entered. Ordering Provider: CHANDU MONET Report Released Date/Time: Sep 28, 2024 11:53 AM Reporting Lab: [facility] [address] Performing Lab: [facility] [address] PROTEIN 8.5 g/dL 6.0-8.6 ALBUMIN 4.7 g/dL 3.4-5.0 TOTAL BILIRUBIN 0.7 mg/dL 0.2-1.2 ALKALINE PHOSPHATASE 201 U/L H 40-150 AST/SGOT 45 U/L H 5-34 ALT/SGPT 88 U/L H 8-40 CONJ. BILIRUBIN 0.2 mg/dL 0.0-0.5 Sep 29, 2024 08:49 AM [facility] CRP PLASMA Specimen Type: PLASM A No comment entered. Ordering Provider: CHANDU MONET Report Released Date/Time: Sep 28, 2024 12:17 PM Reporting Lab: [facility] [address] Performing Lab: [facility] [address] CRP 2.2 mg/dL H 0.0-0.5 Sep 29, 2024 08:49 AM [facility] ESR ISED(STL) BLOOD Specimen Type: BLOOD No comment entered. Ordering Provider: CHANDU MONET Report Released Date/Time: Sep 28, 2024 12:17 PM Reporting Lab: [facility] [address] Performing Lab: [facility] [address] ESR ISED(STL) 24 mm/h H 0-19 Sep 18, 2024 11:39 AM [facility] HGA1C BLOOD Specimen Type: BLOOD No comment entered. Ordering Provider: CHANDU MONET Report Released Date/Time: Sep 18, 2024 11:31 AM Reporting Lab: [facility] [address] [facility] [address] Performing Lab: [facility] [address] [place] [phone] HGA1C 5.6 4.0-6.0 Sep 18, 2024 11:39 AM [facility] LIPID PANEL (L) PLASMA Specimen Type: PLASM A Comment: No hemolysis noted. Ordering Provider: CHANDU MONET Report Released Date/Time: Sep 18, 2024 11:31 AM Reporting Lab: [facility] [address] [facility] [address] Performing Lab: [facility] [address] [facility] [address] CHOLESTEROL 202 mg/dL H 0-200 TRIGLYCERIDE 109 mg/dL 0-150 CALCULATED LDL 126 mg/dL HDL(New) 54 mg/dL >40 Sep 18, 2024 11:39 AM [facility] COMPREHENSIVE METABOLIC PANEL PLASMA Specimen Type: PLASMA Comment: No hemolysis noted. Ordering Provider: CHANDU MONET Report Released Date/Time: Sep 18, 2024 11:31 AM Reporting Lab: [address] [address] Performing Lab: [address] [address] CREATININE 0.73 mg/dL 0.6-1.1 UREA NITROGEN 14.6 mg/dL 9.0-25.0 GLUCOSE 105 mg/dL H 72-99 SODIUM 138 meq/L 136-145 POTASSIUM 3.8 meq/L 3.5-5 CHLORIDE 104 meq/L 98-107 CARBON DIOXIDE 25 meq/L 22-31 CALCIUM 9.8 mg/dL 8.4-10.4 PROTEIN 8.2 g/dL 6-8.6 ALBUMIN 4.5 g/dL 3.4-5 TOTAL BILIRUBIN 0.7 mg/dL 0.2-1.2 ALKALINE PHOSPHATASE 256 U/L H 40-150 AST/SGOT 133 U/L H 5-34 ALT/SGPT 205 U/L H 8-40 EGFR (CKD-EPI 2020) 109.9 >60 Sep 18, 2024 11:39 AM [facility] CBC BLOOD Specimen Type: BLOOD No comment entered. Ordering Provider: CHANDU MONET Report Released Date/Time: Sep 18, 2024 11:31 AM Reporting Lab: [address] [address] Performing Lab: [address] [address] WBC 9.7 10*3/uL 3.6-11.2 RBC 4.40 10*6/uL 3.60-5.00 HGB 11.9 g/dL 11.0-14.9 HCT 37.2 32.6-43.4 MCV 84.5 fL 80.0-100.0 MCH 27.0 pg 27.0-34.0 MCHC 32.0 g/dL L 33.0-36.0 PLT 515 10*3/uL H 150-400 MPV 8.9 fL 7.5-11.2 RDW 13.2 11.8-15.1 LYMPHOCYTES, AUTO % 22 MONOCYTES, AUTO % 6 NEUTROPHILS, AUTO % 69 EOSINOPHILS, AUTO % 2 BASOPHILS, AUTO % 0 LYMPHOCYTES, ABSOLUTE 2.17 10*3/uL 0.77- 4.50 MONOCYTES, ABSOLUTE 0.54 10*3/uL 0.19-0. 80 NEUTROPHILS, ABSOLUTE 6.73 10*3/uL 2.10- 8.00 EOSINOPHILS, ABSOLUTE 0.17 10*3/uL 0.00- 0.60 BASOPHILS, ABSOLUTE 0.04 10*3/uL 0.00-0. 20 Vital Signs: All taken on the encounter date This section contains inpatient and outpatient Vital Signs collected on the date of the Encounter. Date/Time Temperature Pulse Blood Pressure Respiratory Rate SP02 Pain Height Weight Body Mass Index Source Sep 18, 2024 10:53 AM 97 F 62 /min 112/73 mm[Hg] 18 /min 100 % 4 239.8 lb 37 [facility] Social History: Smoking Status (Most current) and Tobacco Use (All prior to encounter date) This section includes the most current, and the historical, smoking and tobacco- related health factors from the [place] facility where the Encounter took place. Current Smoking Status This section includes the most current smoking, or tobacco-related health factor, from the [place] facility where the Encounter took place. Date/Time Current Smoking Status Comment Facil ity Feb 07, 2022 11:00 AM [place]-TOBACCO QUIT 5 TO < 15 YRS [facility] Tobacco Use History This section includes a history of the smoking, or tobacco-related health factors, that were collected on or before the date of the Encounter. The data comes from the [place] facility where the Encounter took place. Date/Time Smoking Status/Tobacco Use Comment F acility Feb 07, 2022 11:00 AM [place]-TOBACCO QUIT 5 TO < 15 YRS [facility] Feb 28, 2018 01:06 PM VA-TOBACCO FORMER USER [facility] Feb 28, 2018 01:06 PM VA-TOBACCO QUIT 1 TO < 5 YRS [facility] Dec 13, 2017 08:31 AM VA-TOBACCO FORMER USER [facility] Dec 13, 2017 08:31 AM [place]-TOBACCO QUIT 1 TO < 5 YRS [facility] Encounter Notes: All associated encounter notes This section contains the clinical notes associated to the Encounter. Date/Time Encounter Note(s) Provider Source Sep 28, 2024 11:54 AM PHYSICIAN LETTERS: LOCAL TITLE: TEST RESULT GENERAL LETTER STL STANDARD TITLE: PHYSICIAN LETTERS DATE OF NOTE: SEP 28, 2024@11:54 ENTRY DATE: SEP 28, 2024@11:55:02 AUTHOR: CHANDU MONETIGNER: URGENCY: STATUS: COMPLETED [facility] [address] [place] [address] SEP 28, 2024 GAYLA VELÁSQUEZ [address] [place] [id number] Dear Gayla Velásquez, I would like to update you on your recent test results. LIPID PROFILE - High cholesterol and triglycerides (lipids) are risk factors for heart disease. Your cholesterol should fall between 140 and 200, and your triglycerides levels should be less than or equal to 150. HDL is the good cholesterol and should ideally be greater than 40. LDL is the bad cholesterol and optimal levels should be less than 100 (near optimal is between 100 and 129). TRIGLYCERIDE 109 mg/dL 09/18/2024 11:39 CHOLESTEROL 202 H mg/dL 09/18/2024 11:39 HDL(New) 54 mg/dL 09/18/2024 11:39 CALCULATED LDL 126 mg/dL 09/18/2024 11:39 No DIRECT LDL EO data found These results are abnormal. Elevated total cholesterol and LDL cholesterol. GLUCOSE - Your blood sugar or glucose level result GLUCOSE GLUCOSE 105 H mg/dL 09/18/2024 11:39 These results are abnormal. A normal non-fasting blood glucose level is less than 140. A normal fasting blood glucose level is less than 100. HEMOGLOBIN A1C - Gives us information about your diabetes (sugar or glucose) control over the past 3 months. Your target is to keep your A1C below 5.7 %. HGA1C 5.6 % 09/18/2024 11:39 These readings are within normal limits. CBC - A complete blood count (CBC) gives important information about the kinds and numbers of cells in the blood, especially red blood cells, white blood cells, and platelets. HGB 11.9 g/dL 09/18/2024 11:39 HEMATOCRIT 37.2 % (09/18/24 11:39) PLT 515 H 10*3/uL 09/18/2024 11:39 WHITE BLOOD COUNT 9.7 10*3/uL (09/18/24 11:39) These results are abnormal. Elevated platelets. I have ordered you additional testing to complete. CHEM 7 - This is important information about the current status of your kidneys, liver, and electrolyte and acid/base balance as well as of your blood sugar and blood proteins. SODIUM 138 mEq/L 09/18/2024 11:39 POTASSIUM 3.8 mEq/L 09/18/2024 11:39 CHLORIDE 104 mEq/L 09/18/2024 11:39 UREA NITROGEN 14.6 mg/dL 09/18/2024 11:39 CREATININE 0.73 mg/dL 09/18/2024 11:39 CALCIUM 9.8 mg/dL 09/18/2024 11:39 CARBON DIOXIDE 25 mEq/L 09/18/2024 11:39 GLUCOSE 105 H mg/dL 09/18/2024 11:39 EGFR (CKD-EPI 2020) 109.9 09/18/2024 11:39 These readings are within normal limits. LIVER FUNCTION PANEL - These are tests for liver function: PROTEIN 8.2 g/dL 09/18/2024 11:39 ALBUMIN 4.5 g/dL 09/18/2024 11:39 TOTAL BILIRUBIN 0.7 mg/dL 09/18/2024 11:39 ALKALINE PHOSPHATASE 256 H U/L 09/18/2024 11:39 AST/SGOT 133 H U/L 09/18/2024 11:39 ALT/SGPT 205 H U/L 09/18/2024 11:39 These results are abnormal. AST, ALT liver enzymes and alkaline phosphatase are high. Additional blood work and an ultrasound is indicated to evaluate this. PLAN As discussed on the phone, I have ordered you additional blood work to complete. Please return to the lab to complete your blood work CINDY. I ordered you an ultrasound of your abdomen as well to check your liver and gallbladder. Radiology will call you to complete the ultrasound. Please continue your treatment as we discussed during your visit. If you have any questions please call your outsole caser. I look forward to seeing you at your next clinic appointment. Thank you for choosing the [facility] for your healthcare. FUTURE APPOINTMENTS: 09/28/2024 14:00 [facility] CLR PHONE PCMLA 1 10/12/2024 15:15 SALUD HURST 03/19/2025 11:00 [facility] C[facility] PACT 7 PCP Sincerely, CHANDU CHANGI, CAR REPAIRER-C, ROCIO-BC Nurse Practitioner GAYLA VELÁSQUEZ KRISTEN D [facility] Sep 18, 2024 11:08 AM PRIMARY CARE NOTE: LOCAL TITLE: PRIMARY CARE PROVIDER ESTABLISHED VISIT [facility] STANDARD TITLE: PRIMARY CARE NOTE DATE OF NOTE: SEP 18, 2024@11:08 ENTRY DATE: SEP 18, 2024@11:08:22 AUTHOR: CHANDU MONET EXP COSIGNER: URGENCY: STATUS: COMPLETED PRIMARY CARE PROVIDER ESTABLISHED VISIT ST Has ADDENDA REASON FOR VISIT: Evaluation and management of chronic medical conditions CHIEF COMPLAINT: regular check up SUBJECTIVE HISTORY HPI: 33 y.o. WHITE FEMALE presents today for evaluation and management of chronic medical conditions. Patient has a current medical history as listed below. Denies any recent hospitalizations or surgeries since last visit. Pt's last [place] PCP appt was on 08/07/23. #hx of PE: 07/29 PE right lung. [facility] ER 07/29. On Xarelto for 3mo. 1mo of treatment remaining. Doing well. No recurrence. # S/p 07/24/14. OBGYN and nonVA cards changed pt from labetalol to enalapril on 07/28/24 d/t bradycardia. Not breast feeding d/t blood thinner. No menses since giving yet. Released from OBGYN after her 6wk PP appt and doesn't see that person for another year. #chronic LBP & right anterior groin/hip pain: feels like pulling sensation. Worse w/ activity. Started during . States her OBGYN was concerned during or after . No red flag symptoms: denies saddle paresthesia, LE weakness or numbness, or loss of bowel or bladder control. WHAT IS YOUR GOAL FOR TODAY? get a check up SOURCE(S) OF HISTORY: Patient [facility] reviewed and summarized Outside records reviewed and summarized PAST MEDICAL HISTORY 1) Low back pain 2) Anxiety 3) Left side sciatica 4) Obesity 5) Elevated blood pressure reading without diagnosis of HTN (hypertension) 6) Irregular intermenstrual bleeding 7) PCOS- polycystic ovary syndrome SOCIAL HISTORY: TOBACCO: denies ALCOHOL: denies ILLICIT: denies ALLERGIES: LATEX GLOVE, DULOXETINE ALLERGY REVIEW: Allergy list reviewed and remains current. MEDICATIONS: Active and Recently Outpatient Medications (excluding Supplies): Active Outpatient Medications Status 1) ACCU-CHEK GUIDE (GLUCOSE) TEST STRIP USE 1 STRIP FOR BLOOD ACTIVE TEST FOUR TIMES A DAY FOR BLOOD GLUCOSE TESTING 2) ACCU-CHEK GUIDE ME (GLUCOSE) METER USE GLUCOSE METER FOR ACTIVE DIRECTED -CONTACT COMPANY FOR REPLACEMENT OR PROBLEM Indication: FOR BLOOD SUGAR MONITORING 3) BUSPIRONE HCL 10MG TAB TAKE ONE TABLET BY MOUTH TWICE A DAY ACTIVE DO NOT TAKE WITH GRAPEFRUIT JUICE. ### 4) DOCUSATE NA 100MG CAP TAKE ONE CAPSULE BY MOUTH TWICE DAILY ACTIVE NEEDED FOR CONSTIPATION. HOLD FOR LOOSE STOOL/DIARRHEA. 5) FERROUS SULFATE 325MG TAB TAKE ONE TABLET BY MOUTH ONCE A ACTIVE DAY . TAKE WITH BREAKFAST 6) MULTIVIT W/MINERALS, CAP/TAB TAKE 1 TABLET BY MOUTH ACTIVE ONCE A DAY TAKE WITH FOOD Indication: FOR NUTRITION/DIETARY SUPPLEMENTATION 7) NURSING TOP CREAM W/LANOLIN APPLY LIGHTLY TO AFFECTED ACTIVE AREA(S) ONCE A DAY NEEDED Indication: FOR SKIN PROTECTION 8) RIVAROXABAN 20MG TAB TAKE ONE TABLET BY MOUTH ONCE A DAY ACTIVE TAKE WITH FOOD. Indication: FOR ANTICOAGULATION Inactive Outpatient Medications Status 1) NIFEDIPINE (EQV-CC) 30MG SA TAB TAKE ONE TABLET BY MOUTH ONCE A DAY PREFERABLE TO TAKE ON EMPTY STOMACH. SWALLOW WHOLE; DO NOT CRUSH OR CHEW. AVOID GRAPEFRUIT JUICE. Active Non-VA Medications Status 1) Non-VA ASPIRIN 81MG EC TAB 81MG BY MOUTH ONCE A DAY ACTIVE Indication: FOR CARDIOVASCULAR DISEASE 2) Non-VA ENALAPRIL MALEATE 5MG TAB 5MG BY MOUTH ONCE A DAY ACTIVE Indication: FOR HIGH BLOOD PRESSURE 11 Total Medications MEDICATION RECONCILIATION: Reviewed with patient. I have reviewed the patient's medication list with the patient and/or caregiver. Handwritten corrections, additions, and/or deletions were made to the list. Correct outpatient medication list was provided to the patient/caregiver. REVIEW OF SYSTEMS: General: Denies fever, chills, or unexplained weight loss or weight gain. Eyes, Ears, Nose, Throat: Denies visual changes, hearing loss, nasal drainage, or sore throat. Endo: Denies heat or cold intolerance, polydipsia, polyuria, or polyphagia. Cardiovascular: Denies chest pain, palpitations, or dizziness. Respiratory: Denies cough or shortness of breath. ABD/GI: Denies abd pain, nausea, vomiting, diarrhea, or constipation. Musculoskeletal/Extremities: +lbp and right hip pain. Denies edema. /CAPITAL EQUIPMENT SPECIALIST: Denies urinary urgency, increased frequency, dysuria, or hematuria. Psych: Denies depression, anxiety, insomnia, SI or HI. Neuro: Denies GARVIN, tremors, neuropathy, or seizures. Skin: Denies rashes, skin lesions. OBJECTIVE DATA PHYSICAL EXAMINATION: VITALS (most recent, as listed in the electronic record): Temperature: 97 F [36.1 C] (09/18/2024 10:53) BP: 112/73 (09/18/2024 10:53) Pulse: 62 (09/18/2024 10:53) Resp: 18 (09/18/2024 10:53) PulsOx: 100% (09/18/2024 10:53) Pain: 4 (09/18/2024 10:53) Weight: Measurement DT WEIGHT LB(KG)[BMI] 09/18/2024 10: 239.8(108.77)[37*] Gen: Clean & well groomed. No acute distress(NAD). HEENT: EOMI, PERRLA. TM pearly monteiro. Neck: Supple, no lymphadenopathy, no thyroidmegaly, or carotid bruits Lungs: CTA. No accessory muscle use. Heart: RRR. S1S2. No murmur. 2+ pulses. Abdomen: Soft, non-tender, non-distended, +bowel sounds x4 quadrants. : Deferred Skin: Warm, dry, and intact. No rashes or skin lesions MSK/Ext: No edema, full ROM with muscle strength 5/5 in all extremities. right hip non-tender. Full weight bearing. no inflammation. Neuro: A+Ox4. Psych: Appropriate mood and affect. DATA REVIEW: No HEMOGLOBIN A1C EO data found Lipid Panel: No LIPID PANEL EO data found CMP: No COMPREHENSIVE METABOLIC PANEL EO data found CBC: No CBC EO data found PSA: No PSA EO data found Result: Acceptable Follow-up Action: Re check prior to next visit. Data results reviewed with patient and/or caregiver. ASSESSMENT/PLAN: #: . Delivered baby girl via 07/24/24. Cleared by OBGYN at 6wk visit. Doesn't see again until 1 year keely. PHQ2 negative. #PCOS, insulin resistance, obesity: previously on metformin but stopped during . Delivered baby girl via 07/24/24. Not breast feeding d/t being on Xarelto d/t PE. Not lactating/producing milk. No plans to breast feed after she's completed her 3mo tx of Xarelto ending in Oct. Will check labs then restart metformin. -check labs -restart metformin pending labs #hx of PE: small PE diagnosed on 07/30 at OSH, about 1 week after delivery. Would consider this a provoked PE. No known DVT. On Xarelto for PE for 3 months. Completes treatment end of October 2024. Tolerating well. No acute complaints or concerns. Denies s/sx of bleeding. No signs of recurrence. Reports having factor 5 leiden testing that was negative. -cont. rivaroxaban (Xarelto) x3 months total (completed end of Oct 2024). -ER precautions advised #Preeclampsia/HTN: switched from labetalol to enalapril d/t bradycardia and fatigue. [facility]eds [facility] to [facility]. controlled; BP goal <130/80. -cont. enalapril 5mg daily -Encouraged pt to monitor home BP 1-2hrs after taking meds -Notify PCP clinic if BP consistently above goal -Pt edu on low Na diet <2g/day, exercise, & wt mgt #chronic LBP and right hip pain: Chronic pain worsening since , particularly right groin pain. Pt addressed right anterior hip/groin pain w/ nonVA PCP who was not concerned. No bleeding. No paresthesia or numbness. Cleared to exercise and resume activity by OBGYN per pt report. DDx muscle strain. -cont. conservative treatment -xray right hip and pelvis -consult PT w/ [facility] preference. If declined, pt will use her nonVA insurance to seek PT w/o [facility] assistance. #Gallstones: hx of gallstones found during . No acute complaints or concerns. Asymptomatic. -declines surgery consult at this time -ER precautions advised: severe RUQ pain, f/c, n/v, stabbing epigastric pain through back. HEALTH MAINTENANCE: -CRC Screening: not due Immunization Series Date Facility Reaction Info COVID-19 (GERALD), VECTOR-NR, R* 1 01/31/2021 [facility] INFLUENZA, SPLIT VIRUS, TRIVALEN* 1 02/14/2024 [facility] TDAP C 08/07/2023 [facility] Labs: CBC, CMP, A1c, Lipid RETURN TO CLINIC: 6 mo Time spent on date of visit including face to face time, data review, and chartin minutes CLINICAL REMINDERS COMPLETED Future Appointments: 09/23/24 11:00 am EULALIO CLR PHONE [facility] 10/12/24 3:15 pm SAUL[facility]URST [phone] SUMMARY STATEMENT: Plan of care has been discussed with including expected therapeutic benefits and potential side effects of prescribed medication and treatments. verbalizes understanding and is in agreement with the plan of care. Patient was instructed to keep all scheduled appointments and contact silk worker for any additional problems. Depression Screening - V: Perform PHQ-2 A PHQ-2 screen was performed. The score was 0 which is a negative screen for depression. Over the past two weeks, how often have you been bothered by the following problems? 1. Little interest or pleasure in doing things Not at all 2. Feeling down, depressed, or hopeless Not at all /debi/ ROCIO DAI-C, CAR REPAIRER-BC Nurse Practitioner Signed: 09/18/2024 13:07 09/28/2024 ADDENDUM STATUS: COMPLETED Called patient. Verified name and . Reviewed labs. Very high AST, ALT, alk phos. Mildly elevated platelets. Patient is asymptomatic. No abd pain, jaundice, n/v/d, BM changes, AMS, confusion. States she has hx of gallstones and was going to see about getting them removed outside the [facility] without assistance from the [facility] after she's off of Xarelto. She doesn't wish to see [facility] for this issue. States that her liver enzymes have waxed and waned for years and years and that she's gotten many labs and many ultrasound and CTs for over the years and was getting w/u for fatty liver which didn't show any scarring. Advised patient that at this [facility] back to [facility], this is the first time her liver enzymes have been elevated and when she went to OSH in July, her LFTs were not elevated. Advised that this is a change from when she went to OSH. She had a baby in July then had a PE shortly thereafter. Now on Xarelto. Explained need for further w/u including labs and imaging and possibly specialty referral. Patient doesn't want to see [facility]. States she'll consider rechecking labs and US but thinks it's not necessary since she's gone through this before. She may consider seeing an outside GI specialist. /debi/ RONA DAI, TERELL Nurse Practitioner Signed: 09/28/2024 13:07 [facility] Sep 18, 2024 11:01 AM NURSING NOTE: LOCAL TITLE: V15 PACT FACE TO FACE NOTE ST STANDARD TITLE: NURSING NOTE DATE OF NOTE: SEP 18, 2024@11:01 ENTRY DATE: SEP 18, 2024@11:01:26 AUTHOR: VICTOR MANUEL SYKES EXP COSIGNER: URGENCY: STATUS: COMPLETED Provider Visit: Patient Identifiers : Full Name Date of Reason for visit: Established Follow-Up Mode of Arrival: Ambulatory Allergy Review: DULOXETINE OCT 10, 2017 (HISTORICAL) Symptoms: NAUSEA AND VOMITING DIARRHEA Comments: OCT 10, 2017@19:47:09 08/2017, severe nausea (with no vomiting) and diarrhea LATEX GLOVE JULY 16, 2017 (HISTORICAL) Symptoms: URTICARIA Allergy list reviewed and remains current. Recent Vital Signs: Temperature: 97 F [36.1 C] (09/18/2024 10:53) Pulse: 62 (09/18/2024 10:53) Respiration: 18 (09/18/2024 10:53) B/P: 112/73 (09/18/2024 10:53) Pain: 4 (09/18/2024 10:53) Wt: 239.8 lb [108.77 kg] (09/18/2024 10:53) Ht: 68 in [172.7 cm] (08/07/2023 10:10) BMI: 36.5 POX: 100% (09/18/2024 10:53) PERSONAL HEALTH INVENTORY Notes: No data available for PHI note titles PERSONAL HEALTH INVENTORY - MAP: No data available for PHI MAP What matters most to you in your life right now? - [place]'s Response: MY KIDS Would you like to discuss any personal problem, family problem, alcohol use, drug use, or a mental or emotional illness? No My [facility]), please select appointment type: Face to face: Yes-Do you have an upgraded (Premium) account which gives you the added benefit of Secure Messaging with your Primary Care Provider and refilling your prescriptions online? Yes- Done Contact provided Primary Care phone number and encouraged to call if any questions or concerns. Review that after hours nurse line [phone] and emergency room are available 01/10 for patient use. Contact verbalized good understanding. COVID-19 Immunization-L,N,P,PH,U: Refused Pfizer Monovalent COVID-19 vaccine Immunization: COVID-19 (PFIZER), MRNA, LNP-S, PF, LAURA-SUCROSE, 30 MCG/0.3 ML (AGES 12+ YEARS) Refusal Reason: PATIENT DECISION Patient refuses all immunization(s) in the COVID-19 group Date Documented: 09/18/24 11:02 /ralf SYKES LICENSED PRACTICAL NURSE Signed: 09/18/2024 11:02 VICTOR MANUEL SYKES [facility]
--- OUTSIDE RECORDS SUMMARY | 2024-10-05 20:34 | XMS_ITS | Encounter Summary ---
Author Organization [facility] Healthcare Address [address] [place] [address] Care Team Providers Care Software Specialist Name Role Phone Unknown, Notinfile Primary Care Provider Unavail able Bertha Barker MD Unavailable Amy Chiang Unavailable Unavailable Angel Horan MD Unavailable Encounter Details Date Type Department Care Team (Late st Contact Info) Description 08/05/2024 Results Follow-Up [facility] [address] [place] [address] [address] [place] [id number] Angel Horan MD [address] [place] [address] [address] [place] [address] F5 (FVL) and F2 (Prothrombin) [...] often do you attend chur ch or advent services? Patient declined 07/24/2024 Do you belong to any clubs o r organizations such as sabianism groups, unions, fraternal or athletic groups, or [...] staff should administer the PHQ-9) 0 07/24/2024 [facility] [...] things needed for daily living? No 07/24/2024 [place] Depression Scale Answer Date Recorded [place] Depression Scale Total 8 07/29/2024 The thought [...] any time in the past 12 m [facility], were you homeless or living in a care home (including now)? No 07/24/2024 Personal Safety Answer [...] on filedocumented in this encounter Care Teams Software Specialist Relationship Specialty Start Date End Date Unknown, Notinfile PCP - General 10/10/22 Bertha Barker MD [address] [address] Consulting Physician Cardiology 04/09/24 Amy Chiang Primary Manager Payment 04/09/24 Angel Horan MD [address] [place] [address] [address] [place] [address] Film Library Clerk Obstetrics and Gynecology 07/26/24 documented as of this encounter
--- OUTSIDE RECORDS SUMMARY | 2024-10-05 20:35 | XMS_ITS | Referral Summary ---
Author Organization [facility] Address [address] [facility] [address] [place] [address] Phone Care Team Providers Care Dress Operator Name Role Phone Unknown, Notinfile Primary Care Provider Unavail able Bertha Barker MD Unavailable [phone] Amy Chiang Unavailable Unavailable Angel Horan MD Unavailable [phone] Encounters Date Type Department Care Team Description 09/16/2024 2:35 PM CDT Lab [address] Diastolic dysfunction 09/16/2024 2:00 PM CDT Office Visit [facility] [place] [phone] Angel Horan MD Encounter for visit (Primary Dx) 09/01/2024 Telephone [facility] Transplant Heart [address] [facility] [address] Mailstop [phone] [place] [address] Elsy Hdz RN 09/01/2024 1:00 PM CDT Telemedicine [facility] Cardiology [address] [facility] Medical Office Building [address] [place] [address] Bertha Barker MD Preeclampsia in period (Primary Dx); Diastolic dysfunction; Bradycardia; Single subsegmental pulmonary embolism without acute cor pulmonale (HCC) 08/09/2024 [facility] Post Discharge Follow up phone call [facility] 1 [place] [address] Iveth Berry RN 08/07/2024 11:45 AM CDT Office Visit [address] [phone] Angel Horan MD hypertension (Primary Dx) 08/06/[address] [phone] Angel Horan MD 08/05/2024 Results Follow-Up [address] [phone] Angel Horan MD F5 (FVL) and F2 (Prothrombin) Mutations 08/04/[address] [phone] Bee Friedman RN EKG Result 08/04/2024 11:00 AM CDT Office Visit [address] [phone] Angel Horan MD Blood pressure check (Primary Dx) 08/03/2024 11:50 PM CDT - 08/04/2024 4:24 AM CDT Emergency [facility] Emergency Department [address] [place], [place] [phone] Hardik Bain MD Essential hypertension (Primary Dx); Acute cystitis with hematuria Discharge Disposition: Discharge to home or self care 07/30/2024 2:54 PM CDT - 08/01/2024 1:05 PM CDT Hospital Encounter [address] [phone] Leona Petit MD Sauer, Megan Elizabeth, DO Talsky, Joseph Mark, MD hypertension (Primary Dx); Single subsegmental pulmonary embolism without acute cor pulmonale (HCC) [I26.93]; Acute nonintractable headache, unspecified headache type [R51.9]; Fever, unspecified fever cause [R50.9] Discharge Disposition: Discharge to home or self care 07/30/2024 4:13 AM CDT - 07/30/2024 8:45 AM CDT Emergency [facility] Emergency Department 1 [place] [address] Kelly Oviedo MD Zozula, Killian Palacios MD Acute pulmonary embolism without acute cor pulmonale, unspecified pulmonary embolism type (HCC) (Primary Dx); ABLA (acute blood loss anemia); Elevated blood pressure reading Discharge Disposition: Discharge to home or self care 07/29/2024 Telephone [facility] [address] [facility] [address] [place] [phone] Sweta Zarate MA EPDS 07/29/2024 10:00 AM CDT Clinical Support [address] [place] [phone] Encounter for staple removal (Primary Dx) 07/28/2024 12:45 PM CDT Telemedicine [facility] Cardiology [address] [place] [address] Medical Office Building [address] [place] [address] Bertha Barker MD follow-up (Primary Dx); Diastolic dysfunction; History of pre-eclampsia 07/27/2024 Telephone [facility] [address] [facility] [address] [place] [phone] Angel Horan MD 07/26/2024 Orders Only [address] [address] Lisa Uribe DO 07/24/2024 5:18 AM CDT - 07/26/2024 2:15 PM CDT Hospital Encounter [address] [phone] Angel Horan MD delivery delivered [O82] (Primary Dx); Previous section; Encounter for sterilization; 39 weeks gestation of [Z3A.39] Discharge Disposition: Discharge to home or self care 07/24/2024 8:00 AM CDT Anesthesia Event [facility] [address] [place] [phone] Chris Fernandez MD 07/24/2024 7:30 AM CDT - 07/24/2024 9:00 AM CDT Surgery [facility] 1 [place] [address] Angel Horan MD REPEAT SECTION WITH BILATERAL SALPINGECTOMY 07/20/2024 1:00 PM CDT Office Visit [address] [place] [address] Angel Horan MD Encounter for supervision of other normal in third trimester (Primary Dx); 38 weeks gestation of 07/13/2024 1:15 PM CDT Office Visit [address] [place] [address] Angel Horan MD Encounter for supervision of normal first in third trimester (Primary Dx); 37 weeks gestation of ; History of delivery from Last 3 Months Allergies Active Allergy Reactions Criticality Noted Date Comments Amoxicillin Unknown 11/02/2016 Gets yeast infections Duloxetine Diarrhea,Nausea And Vomiting Low 10/10/2017 Latex Rash Medium 01/17/2024 Medications blood-glucose meter kit Please provide Glucometer, Test Strips and Lancets to pt. She will be testing 4 times per day. 1 meter with 100 test strips and 100 lancets with 2 refills 1 kit 5 Active RIVAROXABAN 15 MG (42)-20 MG (9) TABLETS IN A STARTER PACK Take 15 mg (1 tablet) TWICE a day for 21 days, then take 20 mg (1 tablet) once a day thereafter. 51 tablet 5 Active busPIRone (BUSPAR) 10 mg tabletIndicatio ns:Generalized Anxiety Disorder Take 1 tablet (10 mg total) by mouth 2 (two) times a day 60 tablet 3 5 Active enalapril (VASOTEC) 5 mg tablet Take 1 tablet (5 mg total) by mouth daily 30 tablet 1 5 08/07/19 26 Active vit 91-taqh-rqnyw-d jaramillo 27mg iron- 800 mcg-250 mg capsule Take by mouth 09/17/19 25 Discontinu ed(Patient Reported) cholecalciferol (VITAMIN D-3) 2000 unit tablet Take 1 tablet (2,000 Units total) by mouth daily 30 tablet 11 5 09/17/19 25 Discontinu ed(Patient Reported) hydrocortisone 2.5 % cream Apply topically 2 (two) times a day 30 g 1 5 09/17/19 25 Discontinu ed(Therapy completed) docusate sodium (COLACE) 100 mg capsuleIndicati ons:constipatio n,Stool Softener Take 1 capsule (100 mg total) by mouth 2 (two) times a day 60 capsule 1 5 09/17/19 25 Discontinu ed(Patient Reported) Active Problems Problem Noted Date Diagnosed Date Single subsegmental pulmonar y embolism without acute cor pulmonale 07/31/2024 hypertension 07/30/2024 Symptomatic cholelithiasis 07/05/2024 External hemorrhoids 06/29/2024 RUQ [...] discuss with OB further course of action. History of pulmonary edema 03/20/2024 Overview (03/20/2024): with preE. Diastolic dysfunction 03/20/2024 Overview (03/20/2024): On echo 01/20/24. History of gestational hypertension 01/17/2024 Overview (01/17/2024): Induced and then readmitted for preeclampsia first . PP pulmonary edema treated with Lasix. Assessment & Plan (01/17/2024 8:29 PM ECMO SPECIALIST): Induced and then readmitted for preeclampsia first . PP pulmonary edema, CHF, treated with Lasix. Recommend ASA 81 mg daily until 37 wks. Primary done, PPH with one unit PRBCs; baby delivered abdominally by forceps with facial laceration. History of PCOS 01/17/2024 Resolved Problems Problem Noted Date Diagnosed Date Resolved Date Fever 08/01/2024 09/16/2024 Acute nonintractable headache 07/31/2024 09/16/2024 delivery delivered 07/24/2024 09/16/2024 39 weeks gestation of 07/24/2024 09/16/2024 Previous section 06/05/2024 Encounter for sterilization 06/05/2024 09/16/2024 Placenta previa in second trimester 03/20/2024 05/15/2024 Overview (05/15/2024): Posterior on anatomy sono. Resolved 05/15/24. History of delivery 01/17/2024 09/16/2024 Multigravida of advanced mat ernal age in third trimester 01/17/2024 09/16/2024 Assessment & Plan (01/17/2024 8:35 PM ECMO SPECIALIST): Discussed increased risk autosomal trisomies with age.. She desires cell free DNA testing. Rh negative state in antepartum period 01/17/2024 09/16/2024 Immunizations Immunization Administration Dates Next Due Influenza, [...] often do you attend chur ch or restoration services? Patient declined 07/24/2024 Do you belong to any clubs o r organizations such as christian groups, unions, fraternal or athletic groups, or [...] staff should administer the PHQ-9) 0 07/24/2024 [facility] - Occupational Stress [...] things needed for daily living? No 07/24/2024 Bingham Depression Scale Answer Date Recorded Bingham Depression Scale Total 8 07/29/2024 The thought [...] any time in the past 12 m [facility], were you homeless or living in a custodial (including now)? No 07/24/2024 Personal Safety Answer [...] Sign Reading Time Taken Comments Blood Pressure 130/82 09/16/2024 2:02 PM CDT Pulse 59 09/01/2024 12:50 PM CDT Temperature 36.4 C (97.6 F) 08/03/2024 11:43 PM CDT Respiratory Rate 16 08/04/2024 4:15 AM CDT Oxygen Saturation 98% 08/07/2024 12:01 PM CDT Inhaled Oxygen Concentration - - Weight 107 kg (236 lb) 09/16/2024 2:02 PM CDT Height 172.7 cm (5' 8) 09/16/2024 2:02 PM CDT Body Mass Index 35.88 09/16/2024 2:02 PM CDT Plan of Treatment Not on file Procedures Procedure Name Priority Date/Time Associated Diagnosis Comments EGFR Routine 09/16/2024 2:32 PM CDT Diastolic dysfunction BASIC METABOLIC PANEL Routine 09/16/2024 2:32 PM CDT Diastolic dysfunction ECG 12-LEAD Routine 08/04/2024 12:29 AM CDT URINALYSIS, MICROSCOPIC ONLY STAT 08/04/2024 12:26 AM CDT TROPONIN T HIGH-SENSITIVITY SERIES (BASELINE, 2HR, 4HR, 6HR) Routine 08/04/2024 12:26 AM CDT URINE CULTURE STAT 08/04/2024 12:26 AM CDT URINALYSIS AND REFLEX TO MICROSCOPIC AND CULTURE STAT 08/04/2024 12:26 AM CDT EGFR STAT 08/04/2024 12:25 AM CDT DIFFERENTIAL AUTO STAT 08/04/2024 12: 25 AM CDT URIC ACID STAT 08/04/2024 12:25 [...] 1:36 PM CDT HEPATIC FUNCTION PANEL STAT 1:36 PM CDT CBC WITHOUT DIFFERENTIAL STAT 07/31/2024 1:36 PM CDT PROTIME-INR STAT 07/31/2024 1:36 PM CDT [facility] CRITICAL CARE ILL/INJURED PATIENT INIT 30-74 MIN Routine 07/30/2024 4:[address] HEAD WO CONTRAST ED 07/30/2024 4 :06 PM CDT ECG 12-LEAD STAT 07/30/2024 3:38 PM CDT XR CHEST 1 VIEW ED 07/30/2024 3:31 PM CDT NV CRITICAL CARE ILL/INJURED PATIENT INIT 30-74 MIN Routine 07/30/2024 8:45 AM CDT PROTIME-INR STAT 07/30/2024 6:29 AM CDT TROPONIN T HIGH-SENSITIVITY 2-HOUR Timed 07/30/2024 6:29 AM CDT URINALYSIS, MICROSCOPIC ONLY STAT 07/30/2024 5:54 AM CDT URINALYSIS AND REFLEX TO MICROSCOPIC AND CULTURE STAT 07/30/2024 5:[address] CHEST PE W CONTRAST ED 5:45 AM CDT XR CHEST 1 VIEW [...] for sterilization BLOOD GAS, CORD VENOUS STAT 8:47 AM CDT BLOOD GAS, CORD ARTERIAL [...] in third trimester 37 weeks gestation of PAP AND HPV, REFLEX TO HPV GENOTYPES Routine 01/17/2024 4:25 PM ECMO SPECIALIST Encounter for supervision of other normal in first trimester HEPATITIS C ANTIBODY Routine 01/17/2024 3:07 PM ECMO SPECIALIST Encounter for supervision of other normal in first trimester from Last 3 Months or Most Recently Relevant to Health Maintenance Results * eGFR (09/16/2024 2:32 PM CDT) eGFR >90 >=60 mL/min/1. 73 [...] interpretive data was last reviewed 2021. Blood 09/16/2024 2:32 PM CDT 09/16/2024 4:22 PM CDT us Bertha Barker MD LAB BLOOD ORDERABLES Fi nal Result [facility] [address] [facility] Department of Laboratories [place], [place] [id number] * Basic metabolic panel (09/16/2024 2:32 PM CDT) Sodium 140 135 - 145 mmol/L Potassium, pl 4.2 3.3 - 4.9 mmol/L [facility] Chloride 99 97 - 110 mmol/L [facility]) CO2 26 22 - 32 mmol/L [facility] Anion gap 15 2 - 15 mmol/L [facility] BUN 16 6 - 25 mg/dL [facility] ([place]) Creatinine 0.78 0.60 - 1.10 mg/dL [facility] Glucose 87 70 - 199 mg/dL [facility] ([place]) Comment: Interpretive Data Fasting glucose [...] interpretive data was last revised 2022. Calcium 10.1 8.5 - 10.3 mg/dL [facility] ([place]) Blood 09/16/2024 2:32 PM CDT 09/16/2024 4:22 PM CDT Bertha Barker MD LAB BLOOD ORDERABLES Fi nal Result [facility] ([place]) [address] [facility] Department [place] [address] * ECG 12 lead (08/04/2024 12:29 AM CDT) 08/04/2024 12:2 9 AM CDT Narrative [facility] - 08/04/2024 9:56 AM CDT Vent Rate: 50 bpm RR Interval: 1194 msec NV Interval: 155 msec QRS Duration: 90 msec QT Interval: 412 msec QTC Interval: 385 msec P-R-T [place]: 33 - 32 - 23 degrees IMPRESSION: SINUS BRADYCARDIA WITH MARKED SINUS ARRHYTHMIA BORDERLINE ECG Compared to prior EKG heart rate decreased Electronically Signed By: Mike Loja MD [facility] Hardik Bain MD ECG ORDERABLES Final Result Performing Organization Address [facility] de Phone Number [facility] [employer] [facility] * Troponin T high-sensitivity series (baseline, [...] ORDERABLES Final R esult Performing Organization Address [facility]/ZIP Co de Phone Number [facility] ([place]) 1 [facility] Department [place] [address] * (ABNORMAL) Urinalysis reflex to microscopic and culture Urine (08/04/2024 12:26 AM CDT) [facility] Signature Color, ur Straw Yellow Clarity, ur Clear [...] tendency for uric acid stone formation. Source: [facility] [employer] Current Interpretive Data was last revised on [...] O RDERABLES Final Result Performing Organization Address City/[facility]/ZIP Co de Phone Number [facility] ([place]) 1 [facility] Department [place] [address] * (ABNORMAL) Urinalysis, microscopic only (08/04/2024 12:26 AM CDT) WBC, ur 11-20(A) 0 - 5 /HPF RBC, ur 6-10(A) 0 - 2 /HPF [facility] ([place] Epithelial cells, squamous, ur 1-5 0 - 5 /HPF [facility] ([place] Bacteria, ur 3+(A) [facility] ([place]) Mucous, ur Present(A) [facility] ([place]) Culture Reflex Comment Reflex to urine culture will be performed. [facility] Urine 08/04/2024 12:2 6 AM CDT 08/04/2024 12:36 AM CDT Hardik Bain MD LAB URINE ORDERABLES Final R esult Performing Organization Address City/[facility]/ZIP Co de Phone Number [facility] ([place] [address] [facility] [place] [address] * Urine culture Urine (08/04/2024 12:26 AM CDT) Report Final Report: No growth Comment:Testing performed by : [facility], [address] [place]., [address] Urine 08/04/2024 12:2 6 AM CDT 08/04/2024 3:22 AM CDT Narrative [facility] - 08/05/2024 7:20 AM CDT Urine culture reflexed based upon urinalysis results. Testing performed by [facility] Microbiology Laboratory ([phone]) Hardik Bain MD LAB MICROBIOLOGY - GENERAL O RDERABLES Final Result [facility] [address] [facility] [place] [address] * eGFR (08/04/2024 12:25 AM CDT) eGFR [...] MD LAB BLOOD ORDERABLES Final R esult [facility] [address] [facility] Department [place] [address] * (ABNORMAL) Differential, auto (08/04/2024 12:25 AM [...] BLOOD ORDERABLES Final R esult [facility] ([place]) [address] [facility] Department [place] [address] * (ABNORMAL) CBC with auto differential (08/04/2024 12:25 AM CDT) WBC 10.33(H) 3.80 - 9.90 K/cumm Hgb 9.6(L) 11.9 - 15.5 g/dL [facility] ([place]) Hct 29.3(L) 35.6 - 45.5 % [facility] ([place]) Plt 492(H) 150 - 400 K/cumm [facility] ([place]) MPV 8.0(L) 9.1 - 12.3 fL [facility] RBC 3.31(L) 3.90 - 5.20 M/cumm [facility] ([place]) MCV 88.5 81.3 - 96.4 fL [facility] MCH 29.0 27.1 - 33.3 pg [facility] ([place]) MCHC 32.8 32.3 - 35.7 g/dL [facility] RDW CV 12.6 11.1 - 14.9 % [facility] RDW SD 41.2 35.7 - 48.1 fL [facility] NRBC abs 0.00 0.00 - 0.01 K/cumm [facility]) Blood 08/04/2024 12:2 5 AM CDT 08/04/2024 12:36 AM CDT Hardik Bain MD LAB BLOOD ORDERABLES Final R esult [facility] ([place]) [address] [facility] [place] [address] * (ABNORMAL) Uric acid (08/04/2024 12:25 AM CDT) Uric acid 8.3(H) 2.5 - 7.0 mg/dL Blood 08/04/2024 12:2 5 AM CDT 08/04/2024 12:36 AM CDT Hardik Bain MD LAB BLOOD ORDERABLES Final R esult [facility]) [address] [facility] [place] [address] * Magnesium (08/04/2024 12:25 AM CDT) Magnesium 1.8 1.4 - 2.5 mg/dL Blood 08/04/2024 12:2 5 AM CDT 08/04/2024 12:36 AM CDT Hardik Bain MD LAB BLOOD ORDERABLES Final R esult Performing Organization Address City/[facility]/ZIP Co de Phone Number JOHN [facility]) 1 [place] [address] * Lactate dehydrogenase (LD) (08/04/2024 12:25 AM CDT) Lactate dehydrogenase (LDH) 228 100 - 250 Units/L Blood 08/04/2024 12:2 5 AM CDT 08/04/2024 12:36 AM CDT Hardik Bain MD LAB BLOOD ORDERABLES Final R esult Performing Organization Address [facility] Co de Phone Number [facility] ([place]) 1 [facility] [place] [address] * (ABNORMAL) Comprehensive metabolic panel (08/04/2024 12:25 AM CDT) Pathologist [facility] Sodium 139 135 - 145 mmol/L Potassium, pl 4.0 3.3 - 4.9 mmol/L [facility] Chloride 101 97 - 110 mmol/L [facility]) CO2 23 22 - 32 mmol/L [facility]) Anion gap 15 2 - 15 mmol/L [facility]) BUN 16 6 - 25 mg/dL [facility] ([place]) Creatinine 0.87 0.60 - 1.10 mg/dL [facility] ([place]) Glucose 94 70 - 199 mg/dL [facility] ([place]) Comment: Interpretive Data Fasting glucose >/= [...] MD LAB BLOOD ORDERABLES Final R esult [facility] ([place]) 1 [facility] Department [place] [address] * F5 (FVL) and F2 (Prothrombin) Mutations (07/31/2024 1:36 PM CDT) [facility] Factor V Leiden F5 Normal Normal [facility] Comment:Testing performed by : [facility], [address] [place] [address], [place] [address] Factor V Leiden Interpretation The patient is negative for the Factor V Leiden mutation (F5:c.1601G>A, p.R534Q) with two copies of the normal allele. [facility] Comment:Testing performed by : [facility], [address] [place]., [address] Prothrombin F2 Mutation Normal Normal [facility] ([place]) Comment:Testing performed by : [facility], [address] [facility] [place]., [address] Prothrombin F2 Interpretation The patient is negative for the prothrombin gene mutation (F2 c.*97G>A ([id number])) with two copies of the normal allele). [facility] ([place]) Comment:Testing performed by : [facility], 1 [place]., [address] FVL and Prothrombin Specimen Blood [facility] ([place]) Comment:Testing performed by : [facility], 1 [place]., [address] FVL and Prothrombin Result Review Final report reviewed by: Van Martin BA, MB([facility])CM, Senior Fire Protection Engineer, on 08/05/2024 09:07:10 CDT. [facility] ([place]) [...] is recommended. Method: This assay utilizes the [employer] Xpert FII & FV qualitative in vitro diagnostic genotyping test for the detection of targeted FV and F2 alleles from sodium citrate or EDTA anticoagulated whole blood. This test is performed on the Albumatic System which automates and integrates sample purification, nucleic acid amplification, and detection of the target sequence in whole blood using real- time Polymerase Chain Reaction (PCR) assays based on Scorpion PCR technology. Note: F5 ([id number]):c.1601G>A, R534Q or Factor V Leiden is also referred to as c.1691G>A, p.R506Q in the literature. FDA statement: The [employer] Xpert FII & FV qualitative in vitro diagnostic genotyping test for use on specimens from adult populations. The design engineering technician did not evaluate testing on samples from pediatric patients (<18 years of age). The performance characteristics of this test on specimens from pediatric patients have been assessed by the [facility] and deemed acceptable for clinical reporting. The [employer] Xpert FII & FV genotyping test is FDA-cleared for testing unprocessed peripheral blood specimens containing either EDTA or sodium citrate. Processing of specimens submitted for reflex testing requires modifications from the design engineering technician's instructions. The performance characteristics of those modifications, if necessary, have been determined by [facility] in a manner consistent [...] to invalid or erroneous results. References: 1. [employer] Xpert Factor II and Factor V package insert. 301-0590, Rev. B. October 2016. 2. Shelley CALDERON, et al; MG Factor V Leiden Working Group. Erika Med. 2001. 3:139- 48. 3. SAVITA Andre, et al. Nature. 2020. 581:434 4 43 4. Lesli ZEPEDA. Factor V Leiden Thrombophilia. 1998July 22 [Updated 2018 Mar 14]. Available from: https://www.ncbi.nlm.nih.gov/books/WGA9389/ 5. Joe PM, et al. N Engl J Med. 1995. 332:912-17. 6. Haroldo ROSE and Delfina PH. J Thromb Haemost. 2009. 7 Suppl 1:301 4 . 7. Butcher, S., et al. Erika Med. 2018. 20:1489 1 498 This test was performed at: [facility], [facility], [address][id number], [address], Ph.D., [place], [address], [place] Current interpretive data was last revised 2022. Testing performed by: [facility], 1 [facility], [place]., [address] Blood 07/31/2024 1:36 PM CDT 07/31/2024 4:59 PM CDT Angel Horan MD LAB GENETIC TESTING Final Result [facility] ([place]) 1 [facility] Department [place] [address] [facility] * eGFR (07/31/2024 1:36 PM CDT) eGFR [...] 1:36 PM CDT 07/31/2024 1:43 PM CDT Angel Horan MD LAB BLOOD ORDERABLES Final Result Performing Organization Address [facility]/ZIP Co de Phone Number [facility] ([place]) 1 [facility] [place] [address] * (ABNORMAL) Protime-INR (07/31/2024 1:36 PM CDT) PT 14.3(H) 9.7 - 13.0 sec [facility] ([place]) INR 1.32(H) 0.90 - 1.20 [facility] ([place]) Comment: Interpretive data Oral anticoagulant therapeutic ranges: Venous thromboembolism prophylaxis or treatment: 2.0-3.0 CARDIOLOGY Standard range: 2.0-3.0 High-intensity range: 2.5-3.5 Refer to indication-specific guidelines for appropriate target ranges for prosthetic heart valve replacement. Current interpretive data was last revised on 2019. Blood 07/31/2024 1:36 PM CDT 07/31/2024 1:43 PM CDT Narrative [facility] ([place]) - 07/31/2024 3:02 PM CDT Baseline prior to rivaroxaban initiation Lisa Uribe DO LAB BLOOD ORDERABLES Fi nal Result [facility] ([place]) 1 [facility] [place] [address] * (ABNORMAL) CBC without differential (07/31/2024 1:36 PM CDT) WBC 10.34(H) 3.80 - 9.90 K/cumm Hgb 9.4(L) 11.9 - 15.5 g/dL [facility] ([place]) Hct 28.3(L) 35.6 - 45.5 % [facility] ([place]) Plt 446(H) 150 - 400 K/cumm [facility] ([place]) MPV 8.4(L) 9.1 - 12.3 fL [facility] ([place]) RBC 3.27(L) 3.90 - 5.20 M/cumm [facility] ([place]) MCV 86.5 81.3 - 96.4 fL [facility] ([place]) MCH 28.7 27.1 - 33.3 pg [facility] ([place]) MCHC 33.2 32.3 - 35.7 g/dL [facility] ([place]) RDW CV 12.8 11.1 - 14.9 % [facility] ([place]) RDW SD 40.1 35.7 - 48.1 fL [facility] ([place]) NRBC abs 0.00 0.00 - 0.01 K/cumm [facility] ([place]) Blood 07/31/2024 1:36 PM CDT 07/31/2024 1:43 PM CDT Narrative [facility] ([place]) - 07/31/2024 1:57 PM CDT Baseline prior to rivaroxaban initiation us Lisa Uribe DO LAB BLOOD ORDERABLES Fi nal Result JOHN [facility] ([place]) 1 [facility] [place] [address] * (ABNORMAL) Magnesium (07/31/2024 1:36 PM CDT) Magnesium 5.0(C) 1.4 - 2.5 mg/dL Comment:Critical Result call ed by [email or web address] at 2024-07-31 17:08:05. Result Read Back by Darcie Veloz RN L&D Blood 07/31/2024 1:36 PM CDT 07/31/2024 4:29 PM CDT us Angel Horan MD LAB BLOOD ORDERABLES Final Result JOHN [facility] ([place]) 1 [facility] [place] [address] * (ABNORMAL) Hepatic function panel (07/31/2024 1:36 PM CDT) Bilirubin, total 0.3 0.1 - 1.2 mg/dL Bilirubin, direct 0.1 0.1 - 0.3 mg/dL [facility] ([place]) Protein, pl 7.0 6.5 - 8.5 g/dL [facility] ([place] Albumin 3.6 3.5 - 5.0 g/dL [facility] ([place]) Alk phos 170(H) 40 - 130 Units/L [facility] ([place]) ALT 16 7 - 45 Units/L [facility] ([place]) AST 21 10 - 45 Units/L [facility] ([place] Blood 07/31/2024 1:36 PM CDT 07/31/2024 1:43 PM CDT Narrative [facility] ([place] - 07/31/2024 2:27 PM CDT Baseline prior to rivaroxaban initiation Lisa Uribe DO LAB BLOOD ORDERABLES Fi nal Result [facility] ([place]) 1 [facility] [place] [address] * (ABNORMAL) Basic metabolic panel (07/31/2024 1:36 PM CDT) Sodium 139 135 - 145 mmol/L Potassium, pl 3.4 3.3 - 4.9 mmol/L [facility] ([place]) Chloride 97 97 - 110 mmol/L [facility] ([place]) CO2 26 22 - 32 mmol/L [facility] ([place]) Anion gap 16(H) 2 - 15 mmol/L [facility] ([place]) BUN 8 6 - 25 mg/dL [facility] ([place]) Creatinine 0.79 0.60 - 1.10 mg/dL [facility] ([place]) Glucose 113 70 - 199 mg/dL [facility] ([place]) Comment: Interpretive Data [...] LAB BLOOD ORDERABLES Final Result JOHN [facility] ([place]) 1 [facility] Department [place] [address] * [place] CRITICAL CARE ILL/INJURED PATIENT INIT 30-74 MIN [...] Jez Long M.D. AG: GUANAKO Report ID: [id number] Reading Location: [id number] Procedure Note Jez Long MD - 07/30/2024 [...] Jez Long M.D. AG: GUANAKO Report ID: [id number] Reading Location: [place] [address] Leona Petit MD IMG CT PROCEDURES Final Re sult * ECG 12 lead (07/30/2024 3:38 PM CDT) 07/30/2024 3:38 PM CDT Narrative [facility] - 07/30/2024 3:50 PM CDT Vent Rate: 72 bpm RR Interval: 833 msec NV Interval: 164 msec QRS Duration: 102 msec QT Interval: 363 msec QTC Interval: 386 msec P-R-T [place]: 62 - 39 - 30 degrees IMPRESSION: SINUS RHYTHM NORMAL ECG NO CHANGE FROM PREVIOUS TRACING NOTED Electronically Signed By: Juwan Chery MD Leona Petit MD ECG ORDERABLES Final Resu lt [facility] [employer] [facility] * XR Chest 1 Vw [...] by Lakhwinder Shanks M.D. JR: Report ID: [id number] Reading Location: [id number] Procedure Note Lakhwinder Shanks MD - 07/30/2024 [...] by Lakhwinder Shanks M.D. JR: Report ID: [id number] Reading Location: [id number] us Leona Petit MD IMG XR PROCEDURES Final Re sult * [place] CRITICAL CARE ILL/INJURED PATIENT INIT 30-74 MIN [...] hs delta 0 ng/L [facility] ([place]) Trop T hs interp Insignificant [facility] ([place]) Blood 07/30/2024 6:29 AM CDT 07/30/2024 6:32 AM CDT us Kelly Oviedo MD LAB BLOOD ORDERABLE S Final Result [facility] ([place]) 1 [facility] [place] [address] * Protime-INR (07/30/2024 6:29 AM CDT) PT 10.5 9.7 - 13.0 sec JOHN [facility] ([place]) INR 0.97 0.90 - 1.20 [facility] ([place]) Comment: Interpretive data Oral anticoagulant therapeutic ranges: Venous thromboembolism prophylaxis or treatment: 2.0-3.0 CARDIOLOGY Standard range: 2.0-3.0 High-intensity range: 2.5-3.5 Refer to indication-specific guidelines for appropriate target ranges for prosthetic heart valve replacement. Current interpretive data was last revised on 2019. Blood 07/30/2024 6:29 AM CDT 07/30/2024 6:32 AM CDT Narrative [facility] ([place]) - 07/30/2024 6:42 AM CDT Baseline prior to rivaroxaban initiation us Killian Palu MD LAB BLOOD ORDERABLE S Final Result [facility] ([place]) 1 [facility] Department [place] [address] * (ABNORMAL) Urinalysis reflex to microscopic and culture Urine (07/30/2024 5:54 AM CDT) Color, ur Straw Yellow Clarity, ur Clear Clear [facility] ([place]) Specific gravity, ur 1.008 1.003 - 1.030 [facility] ([place]) pH, urine 5.5 [facility] ([place]) Comment: Interpretive Data U rine pH is affected by diet, medications, systemic acid-base disturbances, and renal tubular function. pH may affect urinary stone formation. For example, urine pH below 6.0 may help reduce the tendency for calcium phosphate stones and pH greater than 6.0 may reduce the tendency for uric acid stone formation. Source: [facility] [employer] Current Interpretive Data was last revised on 2017 Protein, ur ql Negative Negative [facility] ([place]) Glucose, ur ql Negative Negative [facility] ([place]) Ketones, ur Negative Negative [facility] ([place]) Bilirubin, ur Negative Negative [facility] ([place]) Blood, ur 1+(A) Negative [facility] ([place]) Urobilinogen, ur <2.0 <2.0 mg/dL [facility] ([place]) Nitrite, ur Negative Negative [facility] ([place]) Leukocyte esterase, ur Negative Negative JOHN [facility] ([place]) UA reflex comment Reflex to microscopic UA will be performed. JOHN [facility] ([place]) Urine 07/30/2024 5:54 AM CDT 07/30/2024 5:56 AM CDT Kelly Oviedo MD LAB MICROBIOLOGY - GENERAL ORDERABLES Final Result Performing Organization Address [facility] Co de Phone Number [facility] ([place]) 1 [facility] [place] [address] * (ABNORMAL) Urinalysis, microscopic only (07/30/2024 5:54 AM CDT) WBC, ur 0-5 0 - 5 /HPF RBC, ur 0-2 0 - 2 /HPF JOHN [facility] ([place]) Epithelial cells, squamous, ur 1-5 0 - 5 /HPF JOHN [facility] ([place]) Bacteria, ur 2+(A) JOHN [facility] ([place]) Mucous, ur Present(A) JOHN Don ([place]) Culture Reflex Comment Reflex conditions for urine culture (WBC >10) not met. JOHN [facility] ([place]) Urine 07/30/2024 5:54 AM CDT 07/30/2024 5:56 AM CDT Kelly Oviedo MD LAB URINE ORDERABLE S Final Result Performing Organization Address City/[facility] Co de Phone Number JOHN [facility] ([place]) 1 [facility] [place] [address] * CT Chest PE (CTA) W Contrast [...] Nick Patton M.D. RB: SHONDA Report ID: [id number] Reading Location: [id number] Procedure Note Nick Patton MD - 07/30/2024 [...] Nick Patton M.D. RB: SHONDA Report ID: [id number] Reading Location: [id number] Kelly Oviedo MD IMG CT PROCEDURES F [...] Nick Patton M.D. RB: SHONDA Report ID: [id number] Reading Location: [id number] Procedure Note Nick Patton MD - 07/30/2024 [...] Nick Patton M.D. RB: SHONDA Report ID: [id number] Reading Location: [id number] Kelly Oviedo MD IMG XR PROCEDURES F [...] MD LAB BLOOD ORDERABLE S Final Result [facility] ([place]) 9 [facility] Department of Laboratories [place] [id number] * eGFR (07/30/2024 4:40 AM CDT) eGFR [...] BLOOD ORDERABLE S Final Result [facility] ([place]) 1 [facility] [place] [address] * Differential, auto (07/30/2024 4:40 AM CDT) Neutrophil abs 5.46 1.50 - 6.50 K/cumm Imm gran abs 0.06 0.00 - 0.10 K/cumm [facility] ([place]) Lymphocyte abs 2.24 0.80 - 3.30 K/cumm [facility] ([place]) Monocyte abs 0.66 0.20 - 0.80 K/cumm [...] revised on 2017. Eosinophil pct 2.3 % MUKESH [facility] ([place]) Comment: Interpretive Data Percent cell count reference ranges are not reported, since discordance with absolute values may lead to misinterpretation of CBC data. Current Interpretive Data was last revised on 2017. Basophil pct 0.6 % JOHN [facility] ([place]) Comment: Interpretive Data Percent cell count reference ranges are not reported, since discordance with absolute values may lead to misinterpretation of CBC data. Current Interpretive Data was last revised on 2017. Blood 07/30/2024 4:40 AM CDT 07/30/2024 4:57 AM CDT us Kelly Oviedo MD LAB BLOOD ORDERABLE S Final Result JOHN [facility] ([place]) 1 [facility] [place] [address] * (ABNORMAL) Pro B-type natriuretic peptide (07/30/2024 [...] et.al. Eur Heart J. 2006:27:330-337. 2. Azael RW, Macario TERRELL. J. AM Power Cardiol: Cardiovasc Imag. 2009;2: 216- 225. Interpretive Data Last Revised Date: 2017. Blood 07/30/2024 4:40 AM CDT 07/30/2024 4:57 AM CDT us Kelly Oviedo MD LAB BLOOD ORDERABLE S Final Result [facility] ([place]) 1 [facility] [place] [address] * (ABNORMAL) CBC with auto differential (07/30/2024 [...] AM CDT 07/30/2024 4:57 AM CDT Kelly Ovieod MD LAB BLOOD ORDERABLE S Final Result Performing Organization Address City/[facility]/ZIP Co de Phone Number JOHN [facility] ([place]) 1 [facility] [employer] [address] * Antibody identification (07/30/2024 4:40 AM CDT) Antibody Identification Interpretation Passive Anti-D Blood 07/30/2024 4:40 AM CDT 07/30/2024 4:57 AM CDT Kelly Oviedo MD LAB BLOOD BANK TEST ORDERABLES Final Result Performing Organization Address [facility] Co de Phone Number JOHN [facility] ([place]) 1 [facility] [employer] [place] [address] * ABO/Rh (07/30/2024 4:40 AM CDT) ABO/Rh O Negative Blood 07/30/2024 4:40 AM CDT 07/30/2024 4:57 AM CDT Narrative JOHN [facility] ([place]) - 07/30/2024 9:53 AM CDT Has the patient had Daratumumab or Isatuximab in the past 6 months?->Unknown Kelly Oviedo MD LAB BLOOD BANK TEST ORDERABLES Final Result Performing Organization Address City/[facility]/ZIP Co de Phone Number JOHN [facility] ([place]) 1 [facility] [employer] [place] [address] * (ABNORMAL) Antibody screen (07/30/2024 4:40 AM CDT) Steph, indirect, Gel Interpretation Positive( A) Blood 07/30/2024 4:40 AM CDT 07/30/2024 4:57 AM CDT Narrative JOHN [facility] ([place]) - 07/30/2024 9:53 AM CDT Has the patient had Daratumumab or Isatuximab in the past 6 months?->Unknown Kelly Oviedo MD LAB BLOOD BANK TEST ORDERABLES Final Result Performing Organization Address City/[facility]/ZIP Co de Phone Number JOHN [facility] ([place]) 1 [facility] [employer] [place] [address] * Magnesium (07/30/2024 4:40 AM CDT) Magnesium 1.8 1.4 - 2.5 mg/dL Blood 07/30/2024 4:40 AM CDT 07/30/2024 4:57 AM CDT Kelly Oviedo MD LAB BLOOD ORDERABLE S Final Result Performing Organization Address [facility] Co de Phone Number JOHN [facility] ([place]) 1 [place] [address] * (ABNORMAL) Comprehensive metabolic panel (07/30/2024 4:40 AM CDT) Sodium 139 135 - 145 mmol/L Potassium, pl 3.8 3.3 - 4.9 mmol/L [facility] ([place]) Chloride 103 97 - 110 mmol/L [facility] ([place]) CO2 24 22 - 32 mmol/L [facility] ([place]) Anion gap 12 2 - 15 mmol/L [facility] ([place]) BUN 12 6 - 25 mg/dL [facility] ([place]) Creatinine 0.79 0.60 - 1.10 mg/dL [facility] ([place]) Glucose 95 70 - 199 mg/dL [facility] ([place]) [...] BLOOD ORDERABLE S Final Result JOHN [facility] ([place]) 1 [facility] [employer] [place] [address] * (ABNORMAL) Uric acid (07/30/2024 4:39 AM CDT) Uric acid 7.6(H) 2.5 - 7.0 mg/dL Blood 07/30/2024 4:39 AM CDT 07/30/2024 6:10 AM CDT us Killian Paul MD LAB BLOOD ORDERABLE S Final Result JOHN [facility] ([place]) 1 [facility] [employer] [place] [address] * (ABNORMAL) Lactate dehydrogenase (LD) (07/30/2024 4:39 AM CDT) Lactate dehydrogenase (LDH) 252(H) 100 - 250 Units/L Blood 07/30/2024 4:39 AM CDT 07/30/2024 6:10 AM CDT us Killian Paul MD LAB BLOOD ORDERABLE S Final Result Performing Organization Address [facility] Co de Phone Number OMAR[facility]OSALBA RENZO ([place]) 1 [facility] [place] [address] * ECG 12 lead (07/30/2024 4:21 AM CDT) 07/30/2024 4:21 AM CDT Narrative [facility] - 07/30/2024 7:14 AM CDT Vent Rate: 70 bpm RR Interval: 849 msec NV Interval: 154 msec QRS Duration: 90 msec QT Interval: 358 msec QTC Interval: 379 msec P-R-T [place]: 50 - 46 - 34 degrees IMPRESSION: SINUS RHYTHM NORMAL ECG Compared to prior EKG, heart rate is now slower Electronically Signed By: Dr Nick Bonilla us Kelly Oviedo MD ECG ORDERABLES Fin al Result Performing Organization Address [facility] Phone Number [facility] [employer] [facility] * Rh Immune Globulin Eval (07/25/2024 [...] ORDERA BLES Final Result Performing Organization Address City/[facility] Co de Phone Number JOHN [facility]ER ([place]) 1 [facility] Department [place] [address] * erythrocyte screen (07/25/2024 6:53 AM CDT) Pathologist [facility] Screen Interpretation Negative Comment:Testing performed by : [facility], 1 [place] [address] Blood 07/25/2024 6:53 AM CDT 07/25/2024 10:34 AM CDT Angel Horan MD LAB BLOOD ORDERABLES Final Result JOHN [facility] ([place]) 1 [facility] [place] [address] * (ABNORMAL) CBC without differential (07/25/2024 6:53 AM CDT) [facility] WBC 11.26(H) 3.80 - 9.90 K/cumm Hgb [...] 6:53 AM CDT 07/25/2024 6:56 AM CDT Angel Horan MD LAB BLOOD ORDERABLES Final Result JOHN [facility] ([place]) [address] [place] [address] Department [place] [address] * Surgical pathology (07/24/2024 9:44 AM CDT) Tissue (Fallopian tube, sterilization) 07/24/2024 9:03 AM CDT Tissue specimen (specimen) (Fallopian tube, sterilization) 07/24/2024 9:07 AM CDT Narrative PATHOLOGY [facility] ([place]) - 08/05/2024 3:14 PM CDT EPIC results best viewed via link to PDF [facility] Department of Pathology [address] [place] [id number] Note to Patients: This report may contain [...] Final Report Patient Name: GAYLA MULTANI Address: [address] [place] [id number] Gender: F : 1990 (Age: 33) Service: Obstetrics Location: [facility] Hospital #: [id number] Patient Type: [facility] IP Taken: 07/24/2024 Received: 08/04/2024 Accessioned: 08/04/2024 Reported: [...] determined by the Surgical Pathology Department at [facility] as part of an ongoing director quality assurance program and in compliance with federally mandated [...] characteristics determined by the Surgical Pathology Department [facility]. It has not been cleared or approved by the U. S. Food and Drug Administration. Note for decalcified specimens: This assay has not been validated on decalcified tissues. Results should be interpreted with caution given the possibility of false negativity on decalcified specimens Angel Horan MD LAB PATHOLOGY ORDERABLES F inal Result PATHOLOGY [facility] ([place]) 1 [place] [address] * Blood Gas, Cord Venous (07/24/2024 8:47 [...] BLOOD ORDERABLES Final Result Performing Organization Address City/[facility]/ZIP Co de Phone Number [facility] ([place]) [address] [place] [address] [employer] [place] [address] * Blood Gas, Cord Arterial (07/24/2024 8:47 [...] ORDERABLES Final Result JOHN [facility] ([place]) 1 [facility] [place] [employer] [place] [address] * Spinal Block (07/24/2024 8:10 AM CDT) Narrative Standefer, Jefry Tom, REDEYE GUNNER - 07/24/2024 8:10 AM CDT Jefry Valentin CRNA 07/24/2024 8:10 AM Spinal Block Patient location: L&D Reason for block: primary anesthetic Staff: Supervising provider: Chris Fernandez MD Placed by: REDEYE GUNNER:Jefry Valentin CRNA Procedure prep: Preprocedure checklist: patient [...] patient tolerated procedure well with no complications us Chris Fernandez MD ANESTHESIA ORDERABLES Fi nal [...] ORDERABLES Final Result JOHN [facility] ([place]) 1 [facility] Department [place] [address] * (ABNORMAL) CBC with auto differential (07/24/2024 5:54 AM CDT) WBC 11.98(H) 3.80 - 9.90 K/cumm Hgb 10.5(L) 11.9 - 15.5 g/dL [facility] ([place]) Hct 30.8(L) 35.6 - 45.5 % JOHN [facility] ([place]) Plt 289 150 - 400 K/cumm [facility] ([place]) MPV 8.6(L) 9.1 - 12.3 fL [facility] ([place]) RBC 3.58(L) 3.90 - 5.20 M/cumm [facility] ([place]) MCV 86.0 81.3 - 96.4 fL [facility] ([place]) MCH 29.3 27.1 - 33.3 pg [facility] ([place]) MCHC 34.1 32.3 - 35.7 g/dL [facility] ([place]) RDW CV 13.1 11.1 - 14.9 % [facility] ([place]) RDW SD 40.7 35.7 - 48.1 fL [facility] ([place]) NRBC abs 0.00 0.00 - 0.01 K/cumm [facility] ([place]) Blood 07/24/2024 5:54 AM CDT 07/24/2024 6:03 AM CDT Angel Horan MD LAB BLOOD ORDERABLES Final Result JOHN [facility] ([place]) 1 [facility] [place] [address] * ABO/Rh (07/24/2024 5:54 AM CDT) Pathologist [facility] ABO/Rh O Negative Blood 07/24/2024 5:54 AM CDT 07/24/2024 6:03 AM CDT Narrative [facility] ([place]) - 07/24/2024 6:53 AM CDT Has the patient had Daratumumab or Isatuximab in the past 6 months?->Unknown Angel Horan MD LAB BLOOD BANK TEST ORDERA BLES Final Result JOHN [facility] ([place]) 1 [facility] [place] [address] * RPR Blood (07/24/2024 5:54 AM CDT) RPR Nonreactive Nonreactive Comment:Testing performed by : [facility], [address] [facility], [place] [address] Blood 07/24/2024 5:54 AM CDT 07/24/2024 9:38 AM CDT Angel Horan MD LAB MICROBIOLOGY - GENERAL ORDERABLES Final Result JOHN [facility] ([place]) 1 [facility] [place] [address] * Antibody screen (07/24/2024 5:54 AM CDT) Steph, indirect, Gel Interpretation Negative ABSC Blood 07/24/2024 5:54 AM CDT 07/24/2024 6:03 AM CDT Narrative OMARIROSALBA MULLER ([place]) - 07/24/2024 6:53 AM CDT Has the patient had Daratumumab or Isatuximab in the past 6 months?->Unknown Angel Horan MD LAB BLOOD BANK TEST ORDERA BLES Final Result JOHN [facility] ([place]) [address] [place] [address] [place] [employer] [place] [address] * POCT urinalysis dipstick (07/20/2024 1:07 PM CDT) Glucose, ur, POC Negative Negative Ketones, ur, POC Negative Negative Protein, ur, POC Negative Negative Lot Number [id number] Urine 07/20/2024 1:07 PM CDT Angel Horan MD POINT OF CARE TEST ORDERAB LES Final Result * POCT urinalysis dipstick (07/13/2024 1:20 PM CDT) Glucose, ur, POC Negative Negative Ketones, ur, POC Negative Negative Protein, ur, POC Negative Negative Lot Number [id number] Urine 07/13/2024 1:20 PM CDT Angel Horan MD POINT OF CARE TEST ORDERAB LES Final Result * Pap and HPV, reflex to HPV Genotypes (01/17/2024 4:25 PM ECMO SPECIALIST) CLINICAL INFORMATION: [facility] Comment:None given LMP [facility] Comment:A Previous Pap [facility] Comment:NONE GIVEN Prev. Bx [facility] Comment:NONE GIVEN SOURCE: [facility] Comment:Cervix, Endocervix Pap, specimen adequacy [facility] Comment: Satisfactory for evaluation. Endocervical/transformation zone component present. Age and/or menstrual status not provided HPV interp [facility] Comment: Cytology Results: Negative for intraepithelial lesion or malignancy. COMMENTS [facility] Comment: This Pap test has been evaluated with computer assisted technology. [facility] Comment: LM, CT(ASCP) CT screening location: [place] [address] [place] [phone] Comment [facility] Comment: EXPLANATORY NOTE: The Pap is [...] High Risk E6/E7 Not Detected NOT DETECTED [facility] Comment: Not Detected High Risk HPV types (16,18,31,33,35,39,45,51,52, 56,58,59,66,68) were not detected. Other HPV types which cause anogenital lesions may be present. The significance of the other types of HPV in malignant processes has not been established. Methodology: Real Time PCR Thin prep-Endocervica l 01/17/2024 4:25 PM ECMO SPECIALIST 01/20/2024 6:28 AM ECM[employer] SPECIALIST Angel Horan MD LAB CYTOLOGY ORDERABLES Fi nal Result [place] [address] [place] [address] [facility] [address] [place] [address] * Hepatitis C antibody Blood (01/17/2024 3:07 PM ECMO SPECIALIST) Hep C Ab Nonreactive Nonreactive Comment: Interpretive [...] last revised on 2019. Testing performed by: [facility], [address] [place] [address]., [id number] Blood 01/17/2024 3:07 PM ECMO SPECIALIST 01/17/2024 7:03 PM ECMO SPECIALIST Angel Horan MD LAB MICROBIOLOGY - GENERAL ORDERABLES Final Result [facility] [place] 1 [facility] [place] [address] from Last 3 Months or Most Recently Relevant to Health Maintenance Insurance [facility] [id number] [facility] OFFICE [facility] [id number] Advance Directives For more information, please contact: [phone] * Full Code (Latest Code Status on File) Date Activated Date Inactivated Comments 07/30/2024 5:32 PM 08/01/2024 5:23 PM * Full Code Date Activated Date Inactivated Comments 07/24/2024 9:58 AM 07/26/2024 6:20 PM * Full Code Date Activated Date Inactivated Comments 07/24/2024 5:34 AM 07/24/2024 9:58 AM Full CPR in case of cardiopulmonary arrest Care Teams Dress Operator Relationship Specialty Start Date End Date Unknown, Notinfile PCP - General 10/10/22 Bertha Barker MD [address] [facility] [address] [place] [address] Consulting Physician Cardiology 04/09/24 Amy Chiang Primary Scrubber Machine Tender 04/09/24 Angel Horan MD [address] [facility] [address] [place] [id number] Studio Coordinator Obstetrics and Gynecology 07/26/24
--- OUTSIDE RECORDS SUMMARY | 2024-10-05 20:35 | XMS_ITS | Patient Health Record ---
Author Organization [facility] [employer] [facility] Address [address] [place] [address] Care Team Providers Care Digital Imaging Specialist Name Role Phone Jian Stock Unavailable [phone] Reason For Referral No Information Medications Medication SIG (Take, Route, Frequency, Duration) Notes Start Date End Date Status buPROPion HCl ER (XL) 300 MG Oral 12/19/2022 Active Cyclobenzaprine HCl 10 MG Oral 12/19/2022 Active Qelbree 200 MG Oral *Reorder from [employer] for eRx and Interaction Alerts* 12/19/2022 Active metFORMIN HCl 500 MG Oral 12/19/2022 Active Immunizations Vaccine Route Administration Date Status Comme nts Influenza virus vaccine, quadrivalent (IIV4), split virus, 0.25 mL dosage Unknown 12/26/2020 Administered Michelle Covid-19 Vaccine Unknown 02/01/2021 Administere d Plan Of Treatment No Information Insurance Providers Payer Name Payer Address Payer Phone Subscriber Number Group Number Insured Name Patient Relationship to Insured Coverage Start Date Coverage End Date [employer] [employer] [address] [place] [address] [id number] AXEL MULTANI Spouse - patient is the spouse of the insured Medical (General) History Surgical History Surgery Date(Month/Year) delivery (85769) Appendectomy (06529) Other 10/16/2014 Appendectomy (27126) 02/01/2015
--- OUTSIDE RECORDS SUMMARY | 2024-10-05 20:35 | XMS_ITS | Continuity of Care Document ---
Author Name [facility] Organization [facility] Care Team Providers Care Gardener Name Role Phone [facility] Unavailable Unavailable Problems Combined list of problems from 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 It does not include entries that were removed or entered in error. Problem Status Onset Date Problem Type Date of Resolution Comments Source EXAM, FORMAL OCCUPATIONAL HEALTH PROGRAM INCLUDING HEARING CONSERVATION PROGRAM, ESTABLISH BASELINE PRIOR TO OCCUPATIONAL WORKPLACE EXPOSURE Active Condition DoD visit: ears/hearing exam for hearing conservation, treatment Inactive Condition [facility] Patient Education - Injury Prevention Active Condition [facility] ASTIGMATISM - REGULAR Active Condition [facility] Inquiry And Counseling: Contraceptive Practices Inactive Condition [facility] Vaccines Prophylactic Need Against Viral Diseases Inactive Condition [facility] NICOTINE DEPENDENCE Active Condition [facility] Contraceptives Active Condition [facility] ASSESSMENT OF PATIENT CONDITION WORK-RELATED Active Condition [facility] PLANTAR FASCIITIS Active Condition [facility] EYESTRAIN Inactive Condition [facility] Need For Vaccination Human Papilloma Virus Inactive Condition [facility] visit for: screening exam Active Condition [facility] VAGINITIS Inactive Condition [facility] Other Physical Therapy Active Condition [facility] TENDONITIS POSTERIOR TIBIAL RIGHT Inactive Condition [facility] SINUSITIS Active Condition [facility] SINUSITIS ACUTE Inactive Condition [facility] UPPER RESPIRATORY INFECTION Inactive Condition [facility] ACUTE TONSILLITIS Inactive Condition [facility] DIETARY CALCIUM DEFICIENCY Active Condition [facility] Gynecologic Services Prescription Of Contraceptive Agents Inactive Condition [facility] PREMENSTRUAL SYNDROMES Active Condition [facility] SUPERFICIAL INJURY - BLISTER OF ANKLE Inactive Condition [facility] visit for: screening exam for malignant neoplasm cervix Active Condition [facility] ROUTINE GYNECOLOGICAL EXAM WITH CERVICAL PAP SMEAR Inactive Condition [facility] Preventive Medicine New Patient Evaluation Adult 18-[address] [facility] Patient Education Active Condition [facility] Gynecologic Services Contraceptive General Counseling Active Condition [facility] Dietary Counseling Pertaining To Osteoporosis Active Condition [facility] Anticipatory Guidance: Unsafe Sexual Practices Inactive Condition [facility] visit for: services physical Active Condition [facility] visit for: ears / hearing exam Active Condition [facility] Anxiety Active Condition [facility] Hypertension Active Condition . [facility] Irregular intermenstrual bleeding Active Condition . [facility] Left side sciatica Active Condition [facility] Low back pain Active Condition . [facility] Obesity Active Condition . [facility] PCOS- polycystic ovary syndrome Active Condition [facility] Pulmonary embolism Active Condition J 2024 Entered By: POLINA MONET Comment: 07/30/24 [facility] Hip pain Inactive Condition 02/06/2023 [facility] Diagnosis: ICD-10-CM F41.9 Anxiety disorder, unspecified Active Diagnosis [facility] Diagnosis: ICD-10-CM R21 Rash and other nonspecific skin eruption Active Diagnosis [facility] Diagnosis: ICD-10-CM I10 Essential (primary) hypertension Active Diagnosis [facility] Diagnosis: ICD-10-CM Z71.89 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ed counseling Active Diagnosis [facility] Diagnosis: ICD-10-CM Z51.81 Encounter for therapeutic drug level monitoring Active Diagnosis [facility] Diagnosis: ICD-10-CM I26.99 Other pulmonary embolism without acute cor pulmonale Active Diagnosis [facility] Diagnosis: ICD-10-CM Z86.711 Personal history of pulmonary embolism Active Diagnosis [facility] Diagnosis: ICD-10-CM Z39.2 Encounter for routine follow-up Active Diagnosis [facility] Diagnosis: ICD-10-CM E88.819 Insulin resistance, unspecified Active Diagnosis [facility] Diagnosis: ICD-10-CM M54.50 Low back pain, unspecified Active Diagnosis [facility] Diagnosis: ICD-10-CM Z33.1 state, incidental Active Diagnosis [facility] Diagnosis: ICD-10-CM 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m of uncertain behavior of skin Active Diagnosis [facility] Diagnosis: ICD-10-CM 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tic ovarian syndrome Active Diagnosis [facility] Diagnosis: ICD-10-CM E66.9 Obesity, unspecified Active Diagnosis [facility] Medications Combined list of outpatient medications from Department of Defense and [facility] Affairs facilities.Medications provided include 1) outpatient medications from the last 15 months, and 2) patient-reported medications. Medication Details Route Status Patient Instructions Prescription Expires Prescription Number Last Dispense Date Ordering Provider Order Date Order Qty Source ASPIRIN 81MG TAB,EC TAKE ONE TABLET BY MOUTH ONCE A DAY TAKE WITH FOOD. ORAL 07/21/2024 [id number] GILBERT MARKS M 2024 120 [facility] ASPIRIN 81MG TAB,EC TAKE ONE TABLET BY MOUTH ONCE A DAY ORAL ACTIVE DEPBREEZYS UZANNE 2024 [facility] BUSPIRONE HCL 10MG TAB TAKE ONE TABLET BY MOUTH TWICE A DAY DO NOT TAKE WITH GRAPEFRU IT JUICE. ### ORAL ACTIVE 08/05/2025 [id number] 5 GILBERT MARKS M 2024 60 [facility] CHOLECALCIF GIULIANO 50MCG (2,000UNIT) TAB TAKE ONE TABLET BY MOUTH ONCE A DAY ORAL DISCONT INUED 03/24/2025 [id number] 5 GILBERT MARKS M 2024 100 [facility] DOCUSATE NA 100MG CAP TAKE ONE CAPSULE BY MOUTH TWICE DAILY NEEDED FOR CONSTIPA TION. HOLD FOR LOOSE STOOL/DI ARRHEA. ORAL ACTIVE 03/24/2025 [id number] 5 GILBERT MARKS M 2024 100 [facility] ENALAPRIL MALEATE 5MG TAB TAKE ONE TABLET BY MOUTH ONCE A DAY FOR HIGH BLOOD PRESSURE ORAL ACTIVE 09/19/2025 [id number] 5 CHANDU MONET 2024 90 [facility] FERROUS SO4 325MG TAB TAKE ONE TABLET BY MOUTH ONCE A DAY . TAKE WITH BREAKFAS T ORAL ACTIVE 03/24/2025 [id number] 5 GILBERT MARKS M 2024 100 [facility] FUROSEMIDE 20MG TAB TAKE ONE-HALF TABLET BY MOUTH ONCE A DAY NEEDED FOR FLUID RETENTIO N. CALL PRESCRIB ER OFFICE BEFORE USING ORAL 05/21/2024 [id number] 5 RUTHIE BEEBE 2024 10 [facility] HYDROCORTIS ONE 2.5% CREAM,TOP APPLY TO AFFECTED AREA(S) TWICE A DAY FOR EXTERNAL USE ONLY. APPLY SPARINGL Y. TOPICA L DISCONT INUED 06/30/2025 [id number] 5 GILBERT MARKS M 2024 30 [facility] HYDROCORTIS ONE 2.5% CREAM,TOP APPLY LIGHTLY TO AFFECTED AREA(S) ONCE A DAY NEEDED FOR ITCHING FOR EXTERNAL USE ONLY. APPLY SPARINGL Y. TOPICA L DISCONT INUED 04/15/2025 [id number] 5 Shashank ALVARENGA B 2024 30 [facility] LIDOCAINE HCL 2% JELLY,UROJE T,10ML APPLY SPARINGL Y TO AFFECTED AREA(S) EVERY DAY NEEDED FOR TOPICAL ANESTHES IA FOR HEMORROI D PAIN TOPICA L 08/01/2024 [id number] 5 GILBERT MARKS M 2024 5 [facility] MULTIVITAMI NS W/MINERALS, CAP/TAB TAKE 1 TABLET BY MOUTH ONCE A DAY FOR NUTRITIO N/DIETAR Y SUPPLEME NTATION TAKE WITH FOOD ORAL ACTIVE 11/27/2024 [id number] 5 DEPAUHE,S UZANNE 2023 100 [facility] NIFEDIPINE (EQV-CC) 30MG TAB,SA TAKE ONE TABLET BY MOUTH ONCE A DAY PREFERAB LE TO TAKE ON EMPTY STOMACH. SWALLOW WHOLE; DO NOT CRUSH OR CHEW. AVOID GRAPEFRU IT JUICE. ORAL 08/29/2024 [id number] 5 SHEILA FUNEZ B 2024 30 [facility] NURSING CREAM,TOP W/LANOLIN APPLY LIGHTLY TO AFFECTED AREA(S) ONCE A DAY NEEDED FOR SKIN PROTECTI ON TOPICA L ACTIVE 04/29/2025 [id number] 5 DEPAULO,S UZANNE 2024 30 [facility] PROGESTERON E 200MG CAP INSERT ONE CAPSULE VAGINALL Y EVERY EVENING VAGINA L DISCONT INUED 03/24/2025 [id number] 5 GILBERT MARKS 2024 30 [facility] RIVAROXABAN 15MG TAB TAKE ONE TABLET BY MOUTH TWICE A DAY FOR 21 DAYS THEN USE 20 MG ONCE DAILY. TAKE WITH FOOD. USE THIS BOTTLE FIRST! ORAL DISCONT INUED 08/29/2024 [id number] 5 SHEILA FUNEZ 2024 42 [facility] RIVAROXABAN 20MG TAB TAKE ONE TABLET BY MOUTH ONCE A DAY FOR ANTICOAG ULATION TAKE WITH FOOD. ORAL ACTIVE 08/05/2025 [id number] 5 Shayan LOPEZ 2024 30 [facility] RIVAROXABAN 20MG TAB TAKE ONE TABLET BY MOUTH ONCE A DAY . TAKE WITH FOOD. START THIS DOSE AFTER COMPLETI NG THE 15MG TWICE DAILY PRESCRIP TION. USE THIS BOTTLE SECOND (AFTER 15MG) ORAL DISCONT INUED 08/29/2024 [id number] 5 SHEILA FUNEZ 2024 9 [facility] MARCO ANTONIO Dietz Allergies, Adverse Reactions, Alerts Combined list of allergies from 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 It does not include entries that were removed or entered in error. Substance Category Reaction Severity Reaction type Status Date Reported Comments Source DULOXETINE Propensity to adverse reactions to drug (finding) Nausea and vomiting, Diarrhea active 8 [facility] LATEX GLOVE Propensity to adverse reactions to drug (finding) Urticaria active 8 [facility] No Known Allergies Drug allergy (disorder) active 1 Krishna Waddell [facility] Immunizations Combined list of available immunizations from the 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 Immunization Series Date Given Administered By Site Reaction Lot Number CVX Code Drug Braided Band Assembler Status Comments Source INFLUENZA, SPLIT VIRUS, TRIVALENT, PF 1 2023 140 complet ed HISTORICA L INFORMATI ON - FROM OTHER REGISTRY, [facility] TDAP 2023 DENISE DELAROSA RE Don RIGHT DELTO ID [id number] 115 complet ed Completed Series, ADMINISTE [place] AT [place], [facility] INFLUENZA, MDCK, QUADRIVALENT, PF 1 2022 171 complet ed HISTORICA L INFORMATI ON - FROM OTHER REGISTRY, [facility] INFLUENZA, UNSPECIFIED FORMULATION 2021 88 complet ed Completed Series, HISTORICA L INFORMATI ON - FROM PATIENT'S RECALL, [facility] COVID-19 (GERALD), VECTOR-NR, [id number], PF, 0.5 ML 1 2020 212 complet ed HISTORICA L INFORMATI ON - FROM OTHER REGISTRY, [facility] INFLUENZA, INJECTABLE, QUADRIVALENT, PRESERVATIVE FREE 2017 150 complet ed [facility] Influenza, seasonal, injectable 0 2015 [id number] 1A 141 [employer] (SEQ) complet ed Influenza , seasonal, injectabl e DoD tuberculin skin test; purified protein derivative solution, intradermal 0 2014 Unknown, Provider [id number] Sanofi Pasteur ([facility]) complet ed tuberculi n skin test; purified protein derivativ e solution, intraderm al DoD Influenza, seasonal, injectable 1 2014 Unknown, Provider [id number] 1A 141 [facility] [employer] (CS[facility]) complet ed Influenza , seasonal, injectabl e DoD tetanus toxoid, reduced diphtheria toxoid, and acellular pertu is vaccine, adsorbed 0 2014 Unknown, Provider [id number] Sanofi Pasteur ([facility]) complet ed tetanus toxoid, reduced diphtheri [...] DoD influenza, live, intranasal, quadrivalent 0 2012 [id number] [employer] (MED) complet ed influenza , live, [...] poliovirus vaccine, inactivated 1 2010 Unknown, Provider [id number] Sanofi Pasteur ([facility]) complet ed polioviru s vaccine, inactivat ed DoD yellow fever vaccine 1 2010 Unknown, Provider [id number] [employer] PA[employer] ([employer]ILLET [employer]ER) complet ed yellow fever vaccine DoD typhoid Vi capsular polysaccharid e vaccine 1 2010 Unknown, Provider [id number] Sanofi Pasteur ([facility]) complet ed typhoid Vi capsular polysacch aride vaccine DoD measles, mumps and rubella virus vaccine 1 2010 Unknown, Provider [id number] Merck (MSD) complet ed measles, mumps and rubella virus vaccine DoD influenza virus vaccine, whole virus 1 2010 Unknown, Provider [id number] [facility] complet ed influenza virus vaccine, whole virus DoD meningococcal C conjugate vaccine 1 2010 Unknown, Provider [id number] Sanofi Pasteur ([facility]) complet ed meningoco [...] is vaccine, adsorbed 1 2010 Unknown, Provider [id number] 115 [employer] ([employer]) complet ed tetanus toxoid, reduced diphtheri a [...] Reference Range Date Interpretation Specimen Comments Source CERULOPLA SMIN (STL-PB) CERULOPLASM IN [MASS/VOLUM E] IN SERUM OR PLASMA 41 mg/dL 14 - 48 09/29 Specimen Type: SERUM Comment: Test Performed by [facility], [employer] [facility], [address] [place] [address] Christian Hameed M.D., Ph.D., Director of Laboratorie s , [facility] [id number] Ordering Provider: POLINA MONET Report Released Date/Time: Sep 28, 2024 11:53 AM Reporting Lab: [facility] [address] [place] [phone] Performing Lab: [facility] [id number] [place] [address] [facility] ANTI-NUCL EAR ANTIBODY (STL-PB) NUCLEAR AB [PRESENCE] IN SERUM NEGATIVE 09/29 Specimen Type: SERUM No comment entered. Ordering Provider: POLINA MONET Report Released Date/Time: Sep 28, 2024 11:53 AM Reporting Lab: [facility] [address] [facility] [address] Performing Lab: [facility] [address] [place] [phone] [facility] HEP C Ab HCV Ab (STL) HEPATITIS C VIRUS AB [PRESENCE] IN SERUM Nonreact horace 09/29 Specimen Type: SERUM No comment entered. Ordering Provider: POLINA MONET Report Released Date/Time: Sep 28, 2024 11:53 AM Reporting Lab: [address] [address] Performing Lab: [address] [address] [facility] IRON/TIBC PROFILE IRON BINDING CAPACITY [MASS/VOLUM E] IN SERUM OR PLASMA 446 ug/dL 250 - 450 09/29 Specimen Type: SERUM No comment entered. Ordering Provider: POLINA MONET Report Released Date/Time: Sep 28, 2024 11:53 AM Reporting Lab: [address] [address] Performing Lab: [address] [address] [facility] IRON/TIBC PROFILE TRANSFERRIN [MASS/VOLUM E] IN SERUM OR PLASMA 357 mg/dL 173 - 360 09/29 Specimen Type: SERUM No comment entered. Ordering Provider: POLINA MONET Report Released Date/Time: Sep 28, 2024 11:53 AM Reporting Lab: [address] [address] Performing Lab: [address] [address] [facility] IRON/TIBC PROFILE IRON SATURATION [MASS FRACTION] IN SERUM OR PLASMA 15 20 - 50 09/29 L Specimen Type: SERUM No comment entered. Ordering Provider: POLINA MONET Report Released Date/Time: Sep 28, 2024 11:53 AM Reporting Lab: [address] [address] Performing Lab: [address] [phone] IRON/TIBC PROFILE IRON [MASS/VOLUM E] IN SERUM OR PLASMA 65 ug/dL 50 - 170 09/29 Specimen Type: SERUM No comment entered. Ordering Provider: POLINA MONET Report Released Date/Time: Sep 28, 2024 11:53 AM Reporting Lab: [address] [address] Performing Lab: [address] [phone] [place] [address] IGG (STL) IGG [MASS/VOLUM E] IN SERUM OR PLASMA 1012 mg/dL 540 - 1822 09/29 Specimen Type: SERUM No comment entered. Ordering Provider: POLINA MONET Report Released Date/Time: Sep 28, 2024 11:53 AM Reporting Lab: [address] [address] Performing Lab: [address] [address] [facility] HB S Ag (AUSRIA) (STL) HEPATITIS B VIRUS SURFACE AG [PRESENCE] IN SERUM OR PLASMA BY IMMUNOASSAY Nonreact horace 09/29 Specimen Type: SERUM No comment entered. Ordering Provider: POLINA MONET Report Released Date/Time: Sep 28, 2024 11:53 AM Reporting Lab: [address] [address] Performing Lab: [address] [phone] [place] [address] HEPATITIS B SURFACE AB PNL HEPATITIS B VIRUS SURFACE AB [PRESENCE] IN SERUM BY IMMUNOASSAY INDETERM INANTm[I U]/mL 09/29 Specimen Type: SERUM Comment: Clinical correlation suggested. Please submit new specimen. Clinical correlation suggested. Ordering Provider: POLINA MONET Report Released Date/Time: Sep 28, 2024 11:53 AM Reporting Lab: [address] [address] Performing Lab: [facility] [address] [facility] [address] [facility] HEPATITIS B SURFACE AB PNL HEPATITIS B VIRUS SURFACE AB [UNITS/VOLU ME] IN SERUM 8.41 m[IU]/mL 09/29 Specimen Type: SERUM Comment: Clinical correlation suggested. Please submit new specimen. Clinical correlation suggested. Ordering Provider: POLINA MONET Report Released Date/Time: Sep 28, 2024 11:53 AM Reporting Lab: [facility] [address] [facility] [address] Performing Lab: [facility] [address] [facility] [address] [facility] HEP B CORE AB TOTAL. (STL) HEPATITIS B VIRUS CORE AB [PRESENCE] IN SERUM OR PLASMA BY IMMUNOASSAY Nonreact horace 09/29 Specimen Type: SERUM No comment entered. Ordering Provider: POLINA MONET Report Released Date/Time: Sep 28, 2024 11:53 AM Reporting Lab: [facility] [address] [facility] [address] Performing Lab: [facility] [address] [facility] [address] [facility] HEPATITIS A IGG AB (STL) HEPATITIS A VIRUS IGG AB [PRESENCE] IN SERUM BY IMMUNOASSAY REACTIVE 09/29 Specimen Type: SERUM Comment: Clinical correlation suggested. Ordering Provider: POLINA MONET Report Released Date/Time: Sep 28, 2024 11:53 AM Reporting Lab: [facility] [address] [facility] [address] Performing Lab: [facility] [address] [facility] [address] [facility] ALPHA-1 ANTITRYPS IN (STL-PB) ALPHA 1 ANTITRYPSIN [MASS/VOLUM E] IN SERUM OR PLASMA 159 mg/dL 84 - 200 09/29 Specimen Type: SERUM No comment entered. Ordering Provider: POLINA MONET Report Released Date/Time: Sep 28, 2024 11:53 AM Reporting Lab: [facility] [address] [facility] [address] Performing Lab: [facility] [address] [facility] [address] [facility] Vital Signs Combined list of inpatient and outpatient Vital Signs from Department of [facility] and [facility] Affairs, ranging from 12 months to all on record, depending upon the facility. Vital Sign Value Date Comments Source SYSTOLIC BLOOD PRESSURE 112 09/18/2024 10:53:57 [facility] DIASTOLIC BLOOD PRESSURE 73 09/18/2024 10:53:57 [facility] PULSE OXIMETRY 100 % 09/18/2024 10:53:57 [facility] WEIGHT 239.8 09/18/2024 10:53:[facility] BMI 37 kg/m2 09/18/2024 10:53:[facility] PAIN 4 09/18/2024 10:53:[address] [facility] TEMPERATURE 97 09/18/2024 10:53:57 [facility] PULSE 62 09/18/2024 10:53:[address] [facility] RESPIRATION 18 09/18/2024 10:53:57 [facility] Encounters Combined list of: 1) Encounters from Department of Veterans Affairs facilities going backup to the last 18 months, not all VA inpatient encounters are included; 2) Encounters from the Department of [facility] facilities going backup to 280 months. Location Location Details Encounter Type Encounter Number Reason For Visit Attending Provider ADM Date DC Date Status Disposition Source [facility](Au diology [facility] 1523) OUTPATIENT [id number] JHONATAN CARVAJAL 06/19 Released w/o Limitations [facility]( Audiolo gy [facility] 1523) [facility](Fe male Screening 1523) OUTPATIENT [id number] FANNY Reyna 06/20 Released w/o Limitations [facility]( Female Screeni ng 1523) [facility]na [facility](We llness Clinic Female) OUTPATIENT [id number] class CECY PITTS 06/20 Released w/o Limitations [facility]( [facility] Female) [facility](Op tometry [facility] 1523) OUTPATIENT [id number] recruit screen DANISH BERG 06/20 Released w/o Limitations [facility]( Optomet ry [facility] 1523) [facility](We ekend Mil Sick Call 1007) OUTPATIENT [id number] cold shayanx ZELDA RICHEY 07/08 Sick at Home/Quarter s [facility]( Weekend Mil Sick Call 1007) [facility]( ip 9 Sickcall [place]) OUTPATIENT [id number] F/U flu symptom s SHIREEN LARA 07/10 Released w/o Limitations [facility]( [facility] 9 Sickcal l [place] ) [facility](10 07 Phys Therapy) OUTPATIENT [id number] ship 9 sick call PATY WEINSTEIN 07/11 Released with Work/Duty Limitations [facility] [place]( 1007 Phys Therapy ) [facility] [place](Po diatry Clinic [facility] 1007) OUTPATIENT [id number] right ankle RADHA SPENSER Arian 07/12 Released w/o Limitations [facility]( Podiatr y Clinic [facility] 1007) [facility]( ip 9 Sickcall [place]) OUTPATIENT [id number] female issues ARTATES, NEMESIA F 07/20 Released w/o Limitations [facility]( Ship 9 Sickcal l [place] ) [facility](Me d. Assessmen t/1523) OUTPATIENT [id number] 5-2 TABATHA HAWTHORNE 07/21 Released w/o Limitations [facility]( Med. Assessm ent/152 3) [facility](Me d. Assessmen t/1523) OUTPATIENT [id number] FANNY LOMBARDO 07/21 Released w/o Limitations [facility]( Med. Assessm ent/152 3) [facility]([place] [facility] ) OUTPATIENT [id number] (resche d from Jun 10) RENETTA @ [address] 06/19 Released w/o Limitations [facility]([place] Optomet ry) [facility](Emergen cy Medicine NMCP) OUTPATIENT [id number] IWONA CAM 09/29 Released w/o Limitations [facility](Aicha rgency Medicin e NMCP) [facility](Hearing Cons [place]) OUTPATIENT [id number] MATILDA MANNING 11/13 Released w/o Limitations [facility](Hea ring Cons [place]) [facility](Mi litary Sick Call [facility] 237) OUTPATIENT [id number] BC request ANNETTA FROST 09/02 Released w/o Limitations [facility]( Militar y Sick Call [facility] 237) [facility](Mi litary Sick Call [facility] 237) OUTPATIENT [id number] Needs to switch control FABBY MURILLO 12/03 Released w/o Limitations [facility]( Militar y Sick Call [facility] 237) [facility]([place] [facility] ) OUTPATIENT [id number] APRIL HUDSON 03/31 Released w/o Limitations [facility]([place] Optomet ry) [facility] STA HC Program) OUTPATIENT [id number] Notes Entered by: KATELYN DONNELLY 09 Apr 2013 0828 ------- ------- ------- ------- -- annual JUAN C DONNELLY 04/09 Released w/o Limitations [facility](N [facility] HC Program ) [facility]([place] [facility] Physical [facility]) OUTPATIENT [id number] knee CORNELIO MERCER 01/21 Released w/o Limitations [facility]([place] Physica l Therapy ) [facility]([place] [facility]) OUTPATIENT [id number] THEA ROSA ELENA P 01/22 Released w/o Limitations [facility]([place] Station Physica l Therapy ) [facility]([place] [facility]) OUTPATIENT [id number] DANISH COWART 01/27 Released w/o Limitations [facility]([place] Physica l Therapy ) [facility]([place] [facility]) OUTPATIENT [id number] JAMES ALVAREZ V 02/02 Released with Work/Duty Limitations [facility]([place] Physica l Therapy ) [facility]([place] [facility]) OUTPATIENT [id number] ABRAN BRICEÑO 02/10 Released w/o Limitations [facility]([place] Physica l Therapy ) [facility]([place] [facility]) OUTPATIENT [id number] f/u CORNELIO Worley 02/15 Released w/o Limitations [facility]([place] Physica l Therapy ) [facility]([place] Insurance Consultant Operation s Center) OUTPATIENT [id number] PNR SENA BERNABE 03/16 Released w/o Limitations [facility](S D Insurance Consultant Operati ons Center) [facility]([place] Insurance Consultant [employer]) OUTPATIENT [id number] Notes Entered by: JANICE CARPENTER 16 Mar 2014 0916 ------- ------- ------- ------- -- PNR TWIN FRANKLIN 03/16 Released w/o Limitations [facility](S D Insurance Consultant Katheryn) [facility]([place] [facility]) OUTPATIENT [id number] f/u knee/ba CORNELIO Nichols 03/18 Released w/o Limitations [facility]([place] Physica l Therapy ) [facility]([place] Insurance [place] Operation [place]) TELE CONSULT [id number] Notes Entered by: GILBERT MEHTA 19 Mar 2014 1655 ------- ------- ------- ------- -- Low Blood Sugar ETELVINA CAMEJO NIKO 03/20 Released to Self Care [facility](S D Insurance Consultant Operati ons Center) [facility] Insurance Consultant Photogeologist) OUTPATIENT [id number] NOB LIZA 10/16/14 TIMO JACKSON 04/16 Released w/o Limitations [facility](N TC Insurance Consultant Photogeologist ) [facility](NI Fam Med PCMH Tm 2) OUTPATIENT [id number] Cold SX JULIAN HUFFMAN 04/27 Sick at Home/Quarter s [facility](N I Fam Med PCMH Tm 2) [facility] Insurance Consultant Photogeologist) OUTPATIENT [id number] lizzie@17+ wks TIMO JACKSON 05/13 Released w/o Limitations [facility](N TC Insurance Consultant Photogeologist ) [facility](NI Fam Med PCMH Tm 2) TELE CONSULT [id number] Notes Entered by: NEW FROST 20 May 2014 0803 ------- ------- ------- ------- -- EDF Lower Back Pain, 18 Wks Preg 19 May 2014 JULIAN HUFFMAN 05/20 [address]ment [facility](N I Fam Med PCMH Tm 2) [facility](NI Chiroprac tic Cln) OUTPATIENT [id number] FANNY Clifton 05/24 Released w/o Limitations [facility](N I Chiropr actic Cln) [facility](NI Chiroprac tic Cln) OUTPATIENT [id number] FANNY JO 06/08 Released w/o Limitations [facility](N I Chiropr actic Cln) [facility]([place] Insurance Consultant Photogeologist) OUTPATIENT [id number] [id number] ks TIMO JACKSON 06/11 Released w/o Limitations [facility](N TC Insurance Consultant Photogeologist ) [facility](NI Chiroprac tic Cln) OUTPATIENT [id number] FANNY JO W 06/22 Released w/o Limitations [facility](N I Chiropr actic Cln) [facility](NI Chiroprac tic Cln) OUTPATIENT [id number] FANNY JO 07/06 Released w/o Limitations [facility](N I Chiropr actic Cln) [facility](NTC Insurance Consultant Photogeologist) TELE CONSULT [id number] Notes Entered by: Shyam DE LA PAZ 13 Jul 2014 1523 ------- ------- ------- ------- -- SPIDER BITE NOW FEELING SICK JAMILA SMITH 07/13 [address]erred [address]ment [facility](N TC Insurance Consultant Photogeologist ) [facility](NI Chiroprac tic Cln) OUTPATIENT [id number] FANNY JO 07/20 Released w/o Limitations [facility](N I Chiropr actic Cln) [facility](NT Insurance Consultant Photogeologist) OUTPATIENT [id number] lizzie 28+2 wks.. DARYL Cardoso pt 07/26 Released w/o Limitations [facility](N TC Insurance Consultant Photogeologist ) [facility](NTC Insurance Consultant Photogeologist) OUTPATIENT [id number] Notes Entered by: Neena TALAVERA 26 Jul 2014 1003 ------- ------- ------- ------- -- SYMONE Torrez 07/26 Released w/o Limitations [facility](N TC Insurance Consultant Photogeologist ) [facility](NTC Insurance Consultant Photogeologist) OUTPATIENT [id number] Notes Entered by: ROSA ELENA GOODWIN 26 Jul 2014 1241 ------- ------- ------- ------- -- Tdap vaccine jbr ROSA ELENA GOODWIN 07/26 Released w/o Limitations [facility](N TC Insurance Consultant Photogeologist ) [facility](NI Chiroprac tic Cln) OUTPATIENT [id number] FANNY JO 08/10 Released w/o Limitations [facility](N I Chiropr actic Cln) [facility] Insurance Consultant Photogeologist) OUTPATIENT [id number] lizzie @31+wks copy chart DARYL LÓPEZ 08/20 Released w/o Limitations [facility](N TC Insurance Consultant Photogeologist ) [facility] Insurance Consultant Photogeologist) TELE CONSULT [id number] Notes Entered by: RUDDY GARCIA 23 Aug 2014 1912 ------- ------- ------- ------- -- Labs DARYL LÓPEZ 08/24 [facility](M CASM Insurance Consultant Photogeologist ) [facility] Insurance Consultant Photogeologist) TELE CONSULT [id number] Notes Entered by: CB MARSH 24 Aug 2014 0827 ------- ------- ------- ------- -- 32 wks c/o on going headach es and f/u from ED. Provied er is Gilbert hare. DARYL LÓPEZ 08/24 [facility](N TC Insurance Consultant Photogeologist ) [facility] Insurance Consultant Photogeologist) OUTPATIENT [id number] LIZZIE 32+ DARYL LÓPEZ 08/27 Released w/o Limitations [facility](N TC Insurance Consultant Photogeologist ) [facility] Insurance Consultant Photogeologist) TELE CONSULT [id number] Notes Entered by: Hayden GLOVER 07 Sep 2014 0909 ------- ------- ------- ------- -- Blood pressur e/JAMILA Bedolla 09/07 [address]erred [address]ment [facility](N TC Insurance Consultant Photogeologist ) [facility] Insurance Consultant Photogeologist) OUTPATIENT [id number] lizzie liza 015 36+5wks ZENA ESCAMILLA 09/23 Released w/o Limitations [facility](N TC Insurance Consultant Photogeologist ) [facility] Insurance Consultant Photogeologist) OUTPATIENT [id number] lizzie liza 015 38+2wks ZENA ESCAMILLA 10/04 Released w/o Limitations [facility](N TC Insurance Consultant Photogeologist ) [facility] DIRECT TO [facility] FROM OTHER THAN ER OR APU [id number] SHARYN ENCISO 10/14 RETURNED TO [facility] Insurance Consultant Photogeologist) OUTPATIENT [id number] lizzie liza 015 39+5wks DARYL LÓPEZ 10/14 Released w/o Limitations [facility](N TC Insurance Consultant Photogeologist ) [facility]( [facility] TELE CONSULT [id number] Notes Entered by: NEW FROST 20 Oct 2014 0807 ------- ------- ------- ------- -- IPF 650 Normal Deliver y 18 Oct 2014 JULIAN HUFFMAN 10/[address] [facility](N I Fam Med [facility] Tm 2) 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 JAMILA SMITH 10/20 [address]ointment [facility](N TC Trim Master Operator Photogeologist ) [facility] ER, DIRECT TO [facility] [id number] JAD LOU 10/23 RETURNED TO [facility] Insurance Consultant Photogeologist) TELE CONSULT [id number] Notes Entered by: SIVA HERNANDEZ 26 Oct 2014 1146 ------- ------- ------- ------- -- Patient had her baby on Oct.16 need a F/U appt. In a week for BP check SYMONE TALAVERA 10/26 [address]erred [address] Appointment [facility](N Insurance Consultant Photogeologist ) [facility] Tm 2) TELE CONSULT [id number] Notes Entered by: NEW FROST 27 Oct 2014 0739 ------- ------- ------- ------- -- IPF 642.41 Mild/No s [place] mp-Deli v 25 Oct 2014 JULIAN HUFFMAN 10/27 [address]erred [address]ointment [facility](N I [facility] Tm 2) [facility]([place] Insurance Consult[place] FAU) OUTPATIENT [id number] 1week f/u bp ck LINDA SIEGEL 11/02 Released w/o Limitations [facility]( D Insurance Consultant FAU) [facility]([place] Insurance Consultant Operation s Center) TELE CONSULT [id number] Notes Entered by: WHITLEY ACEVEDO 22 Nov 2014 1034 ------- ------- ------- ------- -- Irregul ar HR, high b/p, and PP bleedin g WHITLEY ACEVEDO 11/22 Referred- Emergency Department [facility] Insurance Consultant Operati ons Center) [facility] Tm 2) TELE CONSULT [id number] Notes Entered by: NEW FROST 23 Nov 2014 0835 ------- ------- ------- ------- -- EDF Chest Pain and Vag Bleedin g 22 Nov 2014 JULIAN HUFFMAN 11/23 [address] [facility](N I [facility] Tm 2) [facility]([place] Insurance Consult[place] FAU) OUTPATIENT [id number] 6 WEEK PP/READ MITTED WITH SEVERE PREECLA MPSIA LINDA SIEGEL 12/01 Released w/o Limitations [facility](S D Insurance Consultant FAU) [facility]([place] Cardiolog y Cln) OUTPATIENT [id number] chest pain JULIO CÉSAR ESTEBAN 12/07 Released w/o Limitations [facility](S D Cardiol ogy Cln) [facility]([place] Cardiolog y Echo) OUTPATIENT [id number] WICHO LEBRON (SYSTEM IC) CHRISTAL CHEW 12/07 Released w/o Limitations [facility](S D Cardiol ogy Echo) [facility]([place] Dermatolo gy) OUTPATIENT [id number] DANISH Guerrero 01/24 Released w/o Limitations [facility](S D Dermato logy) [facility](NI Imms PCMH Tm 2) OUTPATIENT [id number] Notes Entered by: GIOVANA AL 24 Jan 2015 1239 ------- ------- ------- ------- -- PPD, FLU SHOT ELY ZARATE 01/24 Released w/o Limitations [facility](N I Imms PCMH Tm 2) [facility] DIRECT TO [facility] FROM OTHER THAN ER OR APU [id number] JUAN CARLOS KIRKPATRICK 02/03 RETURNED TO [facility](NI HC Program) OUTPATIENT [id number] Notes Entered by: SARAH BLANCO V 07 Feb 2015 0719 ------- ------- ------- ------- -- annual SHERLYN GANN V 02/07 Released w/o Limitations [facility](N I HC Program ) [facility](NI Fam Med PCMH Tm 2) TELE CONSULT [id number] Notes Entered by: NEW FROST 07 Feb 2015 0854 ------- ------- ------- ------- -- IPF 000 Unknown 04 Feb 2015 JULIAN HUFFMAN 02/[address] [facility](N I Fam Med PCMH Tm 2) [facility](NI Fam Med PCMH Tm 2) OUTPATIENT [id number] Notes Entered by: FRANK TONY 07 Feb 2015 1013 ------- ------- ------- ------- -- PHA PART 2 KENROY BRAY 02/07 Released w/o Limitations [facility](N I Fam Med PCMH Tm 2) [facility]([place] General Surg) OUTPATIENT [id number] f/u luzmaria KIRKPATRICKJUAN CARLOS 02/18 Released w/o Limitations [facility](S D General Surg) [facility](NI Optometry ) OUTPATIENT [id number] SHERLYN OLIVA 04/08 Released w/o Limitations [facility](N I Optomet ry) [facility](NI Occ Health) OUTPATIENT [id number] (PORT OPS) JUAN CARLOS COULTER 04/14 Released w/o Limitations [facility](N I Occ Health) [facility](NI Occ Health) OUTPATIENT [id number] -PART2 (PORT-O PS)CORNELIO ALMARAZ 05/02 Released w/o Limitations [facility](N I Occ Health) [facility](NI Fam Med PCMH Tm 2) OUTPATIENT [id number] referra l to podiatr y TABATHA FRANCES 05/16 Released w/o Limitations [facility](N I Fam Med PCMH Tm 2) [facility] Ortho Podiatry Service) OUTPATIENT [id number] Plantar fascial fibroma tosis DO, VANE FLY 06/06 Released w/o Limitations [facility](N TC Ortho Podiatr y Service ) [facility](NI Optometry ) OUTPATIENT [id number] SHERLYN ERWIN 06/21 Released w/o Limitations [facility](N I Optomet ry) [facility](NI Fam Med PCMH Tm 2) OUTPATIENT [id number] Notes Entered by: SONIYA ANTONIO 05 Jul 2015 0859 ------- ------- ------- ------- -- NPV Other DIPAK GIL 07/04 Released w/o Limitations [facility](N I Fam Med PCMH Tm 2) [facility](NI Fam Med PCMH Tm 1) OUTPATIENT [id number] ER f/u for chest discomf ort, back pain and finger numbnes s CLAUDIA SANCHEZ P 07/21 Released w/o Limitations [facility](N I Fam Med PCMH Tm 1) [facility](NI Chiroprac tic Cln) OUTPATIENT [id number] Notes Entered by: HAILEY RG 22 Jul 2015 0837 ------- ------- ------- ------- -- walk in SANDRO FANNY Yoni 07/21 Released w/o Limitations [facility](N I Chiropr actic Cln) [facility](NI Fam Med PCMH Tm 2) TELE CONSULT [id number] Notes Entered by: DIPAK GIL 22 Jul 2015 1134 ------- ------- ------- ------- -- EDF- CHEST PAIN, BACK PAIN -21 Jul 2015 0913 DIPAK GIL 07/[address] [facility](N I Fam Med PCMH Tm 2) [facility](NI Fam Med PCMH Tm 2) OUTPATIENT [id number] f/u regardi ng MRI results BORIS CHILDS 09/22 Released w/o Limitations [facility](N I Fam Med PCMH Tm 2) [facility](NI Fam Med PCMH Tm 1) TELE CONSULT [id number] Notes Entered by: NINA RODRIGUEZ 30 Sep 2015 0917 ------- ------- ------- ------- -- PREVMED -NINA HANSEN 09/[address] [facility](N I Fam Med PCMH Tm 1) [facility](NI Chiroprac tic Cln) OUTPATIENT [id number] Radicul opathy, cervica l region FANNY JO Yoni 10/02 Released w/o Limitations [facility](N I Chiropr actic Cln) [facility](NI Fam Med PCMH Tm 1) OUTPATIENT [id number] IWONA/BORIS GREEN 10/03 Released w/o Limitations [facility](N I Fam Med PCMH Tm 1) [facility](NI Physical Therapy) OUTPATIENT [id number] Radicul opathy, cervica l region JULIA GUERRERO 10/04 Released w/o Limitations [facility](N I Physica l Therapy ) [facility](NI Fam Med PCMH Tm 1) OUTPATIENT [id number] nexplan on inserti on CHEPEBORIS 10/09 Released w/o Limitations [facility](N I Fam Med PCMH Tm 1) [facility](NI Chiroprac tic Cln) OUTPATIENT [id number] FANNY JO 10/17 Released w/o Limitations [facility](N I Chiropr actic Cln) [facility](NI Physical Therapy) OUTPATIENT [id number] JEANCARLOS LIN 11/01 Released w/o Limitations [facility](N I Physica l Therapy ) [facility](NI Chiroprac tic Cln) OUTPATIENT [id number] F/u FANNY JO 11/02 Released w/o Limitations [facility](N I Chiropr actic Cln) [facility] Ortho Podiatry Service) OUTPATIENT [id number] f/u b feet DO, VANE FLY 11/03 Released w/o Limitations [facility](N TC Ortho Podiatr y Service ) [facility](NI Fam Med PCMH Tm 2) OUTPATIENT [id number] hip px x2 wks KENROY BRAY 11/20 Released with Work/Duty Limitations [facility](N I Fam Med PCMH Tm 2) [facility](NI Fam Med PCMH Tm 2) OUTPATIENT [id number] Notes Entered by: KAYLA BIRD 23 Nov 2015 0710 ------- ------- ------- ------- -- alethea-GUILLE Chapin V 11/22 Sick at Home/Quarter s [facility](N I Fam Med PCMH Tm 2) [facility](NAB Physical Therapy) OUTPATIENT [id number] ALISA HEARN 11/27 Released w/o Limitations [facility](N AB Physica l Therapy ) [facility](NI Fam Med PCMH Tm 2) OUTPATIENT [id number] Parfq related concern s (per RN GG) KENROY BRAY 12/01 Released with Work/Duty Limitations [facility](N I Fam Med PCMH Tm 2) [facility](NAB Physical Therapy) OUTPATIENT [id number] CAROLYNE MA 12/07 Released with Work/Duty Limitations [facility](N AB Physica l Therapy ) [facility](NAB Physical Therapy) OUTPATIENT [id number] CAROLYNE MA 12/12 Released with Work/Duty Limitations [facility](N AB Physica l Therapy ) [facility](NAB Physical Therapy) OUTPATIENT [id number] ALISA MELGAR P 12/15 Released w/o Limitations [facility](N AB Physica l Therapy ) [facility](NAB Physical Therapy) OUTPATIENT [id number] CAROLYNE MA 12/21 Released with Work/Duty Limitations [facility](N AB Physica l Therapy ) [facility](NAB Physical Therapy) OUTPATIENT [id number] CAROLYNE MA 12/26 Released with Work/Duty Limitations [facility](N AB Physica l Therapy ) [facility](NAB Physical Therapy) OUTPATIENT [id number] LAMSEN, EL V 01/02 Released w/o Limitations [facility](N AB Physica l Therapy ) [facility](NAB Physical Therapy) OUTPATIENT [id number] CAROLYNE MA 01/04 Released with Work/Duty Limitations [facility](N AB Physica l Therapy ) [facility](NAB Physical Therapy) OUTPATIENT [id number] LAMSEN, EL V 01/08 Released w/o Limitations [facility](N AB Physica l Therapy ) [facility](NI Imms PCMH Tm 2) OUTPATIENT [id number] Notes Entered by: JAXSON LIM 09 Jan 2016 1614 ------- ------- ------- ------- -- IMMUNIZ SHIRLEY IWONA BAKER Efren 01/08 Released w/o Limitations [facility](N I Imms PCMH Tm 2) [facility](NAB Physical Therapy) OUTPATIENT [id number] ANIL CAROLYNE Schwartz 01/17 Released with Work/Duty Limitations [facility](N AB Physica l Therapy ) [facility](NAB Physical Therapy) OUTPATIENT [id number] ALISA HEARN 01/22 Released w/o Limitations [facility](N AB Physica l Therapy ) [facility](NAB Physical Therapy) OUTPATIENT [id number] CAROLYNE MA 01/30 Released with Work/Duty Limitations [facility](N AB Physica l Therapy ) [facility](NAB Physical Therapy) OUTPATIENT [id number] EL MEHTA V 02/08 Released w/o Limitations [facility](N AB Physica l Therapy ) [facility](NAB Physical Therapy) OUTPATIENT [id number] CAROLYNE MA 02/15 Released with Work/Duty Limitations [facility](N AB Physica l Therapy ) [facility](NI Fam Med PCMH Tm 2) OUTPATIENT [id number] worseni ng cold LINDA Steven 02/19 Sick at Home/Quarter s [facility](N I Fam Med PCMH Tm 2) [facility](NAB Physical Therapy) OUTPATIENT [id number] ALISA HEARN 02/21 Released w/o Limitations [facility](N AB Physica l Therapy ) [facility](NI HC Program) OUTPATIENT [id number] Notes Entered by: Hayden HANDLEY 28 Mar 2016 0924 ------- ------- ------- ------- -- CORNELIO DOUGHERTY 03/28 Released w/o Limitations [facility](N I HC Program ) [facility](NI Fam Med PCMH Tm 2) TELE CONSULT [id number] Notes Entered by: Efren TREJO 29 Mar 2016 0820 ------- ------- ------- ------- -- NPV Labs GUILLE XIAO V 03/29 Released to Self Care [facility](N I Fam Med PCMH Tm 2) [facility](NI Optometry ) OUTPATIENT [id number] YAN MANLEYSSHERLYN 03/29 Released w/o Limitations [facility](N I Optomet ry) [facility](NI Med Readiness Cln) OUTPATIENT [id number] Sep PE LUANNE LORENZO 04/11 Released w/o Limitations 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 BORIS ALBERTO Flako 05/20 MED NUTRITION INDIV SUBSEQ [id number] Diagnos is: ICD-10- CM E66.9 Obesity , unspeci fied DAYTON MAYEN 05/28 [facility] DIVISION OFFICE O/P EST LOW 20 MIN [id number] Diagnos is: ICD-10- CM E66.9 Obesity , unspeci fied ANDREW WAGNER 07/09 [facility] N [facility] Outpatient Encounter [id number] 07/10 [facility] Outpatient Encounter [id number] MARINE DELAROSA 07/30 [facility] N [facility] Outpatient Encounter [id number] 08/06 [facility] OFFICE O/P EST MOD 30 MIN [id number] Diagnos is: ICD-10- CM 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 DEPDIONNE TIJERINA 08/06 [facility] Outpatient Encounter [id number] 08/19 [facility] Outpatient Encounter [id number] SKIP OLSON J 11/01 [facility] Outpatient Encounter [id number] 11/04 [facility] Outpatient Encounter [id number] LETTYDIANN ISTINE M 11/21 [facility] Outpatient Encounter [id number] SKIP OLSON J 11/24 [facility] Outpatient Encounter [id number] SKIP OLSON J 11/24 [facility] [facility] Outpatient Encounter [id number] YVONNE GÓMEZ 11/26 [facility] ASSMT/REAS SESSMENT [id number] [id number] Diagnos is: ICD-10- CM Z33.1 [place] YVONNE GÓMEZ D 11/26 [facility] Outpatient Encounter [id number] [id number] 11/26 [facility] Out[facility] Encounter [id number] [id number] Mirela BROOKS 11/27 [facility] PRO PHONE CALL 5-10 MIN [id number] [id number] 154 Diagnos is: ICD-10- CM Z33.1 [place] incidjagruti YVONNE Davalos D 12/01 [facility] Outpatient Encounter [id number] [id number] 12/[address] [facility] HC PRO PHONE CALL 21-30 MIN 07963-6.65 [id number] Diagnos is: ICD-10- CM Z33.1 [place] incidjagruti MONICA Gillette 12/31 [facility] Outpatient Encounter [id number] 01/16 [facility] Out[facility] Encounter [id number] [id number] 01/27 [facility] Out[facility] Encounter [id number] [id number] 02/02 [facility] Outpatient Encounter [id number] [id number] VESNA VICKERS 02/02 [facility] PRO PHONE CALL 11-20 MIN [id number] [id number] Diagnos is: ICD-10- CM Z33.1 [place] andrew YVONNE Davalos 02/09 [facility] Outpatient Encounter [id number] [id number] 02/[address] [facility] Outpatient Encounter [id number] [id number] 02/13 [facility] Outpatient Encounter [id number] [id number] 02/13 [facility] Outpatient Encounter [id number] 02/17 [facility] Outpatient Encounter [id number] [id number] DARYL LONG 02/23 [facility] SYNCH AUDIO-ONLY EST LOW 20 [id number] [id number] Diagnos is: ICD-10- CM Z33.1 [place] ketty DIONNE LOPEZ 03/17 [facility] Outpatient Encounter [id number] [id number] 03/20 [facility] PH1 ASSMT&MGMT NQHP 5-10 [id number] [id number] Diagnos is: ICD-10- CM 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 YVONNE Boyle 03/23 [facility] Outpatient Encounter [id number] [id number] LETTY MCRAE 03/23 [facility] Outpatient Encounter [id number] [id number] URBANO MAYNARD 03/26 [facility] Outpatient Encounter [id number] [id number] DIONNE LOPEZ 03/27 [facility] Encounter [id number] [id number] CAESARURBANO Blake 03/31 [facility] Outpatient Encounter [id number] [id number] 03/31 [facility] PH1 ASSMT&MGMT NQHP 5-10 [id number] [id number] Diagnos is: ICD-10- CM 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 YVONNE Boyle 04/09 [facility] OFF/OP CNSLTJ NEW/EST LOW 30 [id number] [id number] Diagnos is: ICD-10- CM 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 in behavio r of skin Leonel OROPEZA 04/14 [facility] Outpatient Encounter [id number] [id number] 04/17 [facility] Outpatient Encounter [id number] [id number] LETTY MCRAE 04/21 [facility] BHV ASSMT/REAS SESSMENT [id number] [id number] Diagnos is: ICD-10- CM Z33.1 [place] YVONNE Davalos 04/28 [facility] Outpatient Encounter [id number] [id number] 05/15 [facility] PH1 ASSMT&MGMT NQHP 5-10 [id number] [id number] Diagnos is: ICD-10- CM 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 YVONNE Boyle 05/26 [facility] Outpatient Encounter [id number] [id number] 06/08 [facility] PSYTX W PT 30 MINUTES [id number] [id number] Diagnos is: ICD-10- CM F41.9 Anxiety disorde r, unspeci fied Shashank SANCHEZ ERA J 06/12 [facility] Outpatient Encounter [id number] [id number] Shashank SANCHEZ J 06/12 [facility] OFF/OP CNSLTJ NEW/EST LOW 30 [id number] [id number] Diagnos is: ICD-10- CM M54.50 Low back pain, unspeci fied GERMAINE,ROS S 06/15 [facility] PH1 ASSMT&MGMT NQHP 5-10 [id number] [id number] Diagnos is: ICD-10- CM 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 YVONNE Boyle 06/17 [facility] Outpatient Encounter [id number] [id number] LETTY MCRAE 06/17 [facility] NQHP OL DIG ASSMT&MGMT 5-10 [id number] [id number] Diagnos is: ICD-10- CM E88.819 Insulin resista nce, unspeci fied SCHMEES,NA NCY JENNY 06/17 [facility] PSYTX W PT 30 MINUTES [id number] [id number] 529 Diagnos is: ICD-10- CM F41.9 Anxiety disorde r, unspeci fied Shashank SANCHEZ ERA J 06/24 [facility] PH1 ASSMT&MGMT NQHP 5-10 [id number] [id number] 140 Diagnos is: ICD-10- CM 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 YVONNE Boyle 06/24 [facility] Outpatient Encounter [id number] [id number] LETTY MCRAE 06/29 [facility] Outpatient Encounter [id number] [id number] 06/29 [facility] Outpatient Encounter [id number] [id number] 06/30 [facility] Outpatient Encounter [id number] [id number] Mirela BROOKS 06/30 [facility] PSYTX W PT 30 MINUTES [id number] [id number] Diagnos is: ICD-10- CM F41.9 Anxiety disorde r, unspeci Shashank Vega ERA J 07/08 [facility] Outpatient Encounter [id number] [id number] 07/24 [facility] Outpatient Encounter [id number] [id number] LETTY MCRAE 07/27 [facility] Outpatient Encounter [id number] [id number] 07/30 [facility] Outpatient Encounter [id number] [id number] LETTY MCRAEANGELICA PRATIBHA 07/30 [facility] NQHP OL DIG ASSMT&MGMT 21+ [id number] [id number] Diagnos is: ICD-10- CM Z86.711 Persona l history of pulmona ry embolis m Arian SANDHU NNA P 07/30 [facility] BHV ASSMT/REAS SESSMENT [id number] [id number] Diagnos is: ICD-10- CM Z39.2 Encount er for routine postpar sabine follow- up YVONNE GÓMEZ 07/30 [facility] Outpatient Encounter [id number] [id number] DIONNE LOPEZ 07/31 [facility] NQHP OL DIG ASSMT&MGMT 5-10 [id number] [id number] Diagnos is: ICD-10- CM Z86.711 Persona l history of pulmona ry embolis m MARCOZOILA Shayan 08/04 [facility] Outpatient Encounter [id number] [id number] 08/04 [facility] Outpatient Encounter [id number] [id number] SKIP OLSON 08/04 [facility] Outpatient Encounter [id number] [id number] FLINT-YO JERRY Martínez 08/04 [facility] MTMS BY PHARM EST 15 MIN [id number] [id number] Diagnos is: ICD-10- CM Z51.81 Encount er for therape utic drug level monitor ZOILA Acosta 08/05 [facility] Outpatient Encounter [id number] [id number] DIONNE LOPEZ 08/05 [facility] SYNCH AUDIO-ONLY EST MOD 30 [id number] [id number] Diagnos is: ICD-10- CM I26.99 Other pulmona ry embolis m without acute cor pulmona le DIONNE LOPEZRamesh 08/06 [facility] PSYTX W PT 30 MINUTES [id number] [id number] Diagnos is: ICD-10- CM F41.9 Anxiety disorde r, unspeci Shashank Vega ERA J 08/12 [facility] PSYTX W PT 30 MINUTES [id number] [id number] Diagnos is: ICD-10- CM F41.9 Anxiety disorde r, unspeci Shashank Vega ERA J 08/26 [facility] Outpatient Encounter [id number] [id number] Shashank SANCHEZ 08/26 [facility] PH1 ASSMT&MGMT NQHP 11-20 [id number] [id number] Diagnos is: ICD-10- CM 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 YVONNE Boyle 08/26 [facility] MTMS BY PHARM EST 15 MIN [id number] [id number] Diagnos is: ICD-10- CM Z51.81 Encount er for therape utic drug level monitor ing ZOILA LARA 08/26 [facility] Outpatient Encounter [id number] [id number] ROGERIODIONNE TIJERINARamesh 08/28 [facility] Outpatient Encounter [id number] [id number] 08/31 [facility] PH1 ASSMT&MGMT NQHP 5-10 [id number] [id number] Diagnos is: ICD-10- CM 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 YVONNE Boyle D 09/07 [facility] Outpatient Encounter [id number] [id number] 09/08 [facility] Outpatient Encounter [id number] [id number] 09/08 [facility] OFFICE O/P EST HI 40 MIN [id number] [id number] Diagnos is: ICD-10- CM I10 Essenti al (primar y) hyperte Fortunato Restrepo 09/18 [facility] Outpatient Encounter [id number] [id number] 09/21 [facility] NQHP OL DIG ASSMT&MGMT 5-10 [id number] [id number] 8 Diagnos is: ICD-10- CM R21 Rash and other nonspec ific skin eruptio Shyam Sullivan 09/25 [facility] NQHP OL DIG ASSMT&MGMT 5-10 [id number] [id number] Diagnos is: ICD-10- CM R21 Rash and other nonspec ifi skin eruptio n FABIANOIvan BARRON Y 09/28 [facility] PSYTX W PT 30 MINUTES [id number] [id number] Diagnos is: ICD-10- CM F41.9 Anxiety disorde r, unspeci fied Shashank SANCHEZ 09/28 [facility] Outpatient Encounter [id number] [id number] SKIP OLSON 09/30 [facility] Procedures Combined list of: 1) Procedures from Department of Veterans Affairs facilities going back up to thelast 18 months, not all [place] non-surgical procedures are included; 2) All procedures from the Department of Defense facilities. Procedure Procedure Type Code Date Perfomer Comments [facility] e SCREENING TEST, PURE TONE, AIR ONLY 2011 [facility] COMPRESSION BANDAGE, ROLL 2011 [facility] FITTING OF SPECTACLES, EXCEPT FOR APHAKIA; MONOFOCAL 2011 [facility] IMMUNIZATION ADMINISTRATION BY INTRANASAL OR ORAL ROUTE; 1 VACCINE (SINGLE OR COMBINATION VACCINE/TOXOID) 2012 [facility] TOBACCO USE CESSATION INTERVENTION, COUNSELING (COPD, CAP, CAD, ASTHMA) (DM) (PV) 2012 [facility] THERAPEUTIC, PROPHYLACTIC, OR DIAGNOSTIC INJECTION (SPECIFY SUBSTANCE OR DRUG); SUBCUTANEOUS OR INTRAMUSCULAR 2010 [facility] SKIN TEST; TUBERCULOSIS, INTRADERMAL 2010 [facility] THERAPEUTIC PROCEDURE, 1 OR MORE AREAS, EACH 15 MINUTES; THERAPEUTIC EXERCISES TO DEVELOP STRENGTH AND ENDURANCE, RANGE OF MOTION AND FLEXIBILITY 2010 [facility] SCREENING PAPANICOLAOU SMEAR; OBTAINING, PREPARING AND CONVEYANCE OF CERVICAL OR VAGINAL SMEAR TO LABORATORY 2010 [facility] IMMUNIZATION ADMINISTRATION (INCLUDES PERCUTANEOUS, INTRADERMAL, SUBCUTANEOUS, OR INTRAMUSCULAR INJECTIONS); 1 VACCINE (SINGLE OR COMBINATION VACCINE/TOXOID) 2010 [facility] OPHTHALMOLOGICAL SERVICES: MEDICAL EXAMINATION AND EVALUATION WITH INITIATION OF DIAGNOSTIC AND TREATMENT PROGRAM; COMPREHENSIVE, NEW PATIENT, 1 OR MORE VISITS 2010 [facility] AUDIOMETRIC TESTING OF GROUPS 2010 [facility] SKIN TEST; TUBERCULOSIS, INTRADERMAL 2010 [facility] VIS FUNCT SCREEN,AUTOMAT/SEMI- AUTOMAT BILAT QUANT DETERM VISUAL ACUITY,OCULAR ALIGN,COLOR VISION,PSEUDOISOCHRO MAT PLATES,& FIELD VIS (MAY INC ALL/SOME SCRN DETERM FOR CONTRAST SENSITIV,VIS UND GLARE) 2016 [facility] AUDIOMETRIC TESTING OF GROUPS 2016 [facility] PHYSICAL THERAPY RE-EVALUATION 2015 [facility] THERAPEUTIC PROCEDURE, 1 OR MORE AREAS, EACH 15 MINUTES; THERAPEUTIC EXERCISES TO DEVELOP STRENGTH AND ENDURANCE, RANGE OF MOTION AND FLEXIBILITY 2015 [facility] APPLICATION OF A MODALITY TO 1 OR MORE AREAS; HOT OR COLD PACKS 2015 [facility] THERAPEUTIC PROCEDURE, 1 OR MORE AREAS, EACH 15 MINUTES; THERAPEUTIC EXERCISES TO DEVELOP STRENGTH AND ENDURANCE, RANGE OF MOTION AND FLEXIBILITY 2015 [facility] PHYSICAL THERAPY RE-EVALUATION 2015 [facility] THERAPEUTIC PROCEDURE, 1 OR MORE AREAS, EACH 15 MINUTES; THERAPEUTIC EXERCISES TO DEVELOP STRENGTH AND ENDURANCE, RANGE OF MOTION AND FLEXIBILITY 2015 [facility] IMMUNIZATION ADMINISTRATION (INCLUDES PERCUTANEOUS, INTRADERMAL, SUBCUTANEOUS, OR INTRAMUSCULAR INJECTIONS); 1 VACCINE (SINGLE OR COMBINATION VACCINE/TOXOID) 2015 [facility] APPLICATION OF A MODALITY TO 1 OR MORE AREAS; ELECTRICAL STIMULATION (UNATTENDED) 2015 [facility] THERAPEUTIC PROCEDURE, 1 OR MORE AREAS, EACH 15 MINUTES; THERAPEUTIC EXERCISES TO DEVELOP STRENGTH AND ENDURANCE, RANGE OF MOTION AND FLEXIBILITY 2015 [facility] APPLICATION OF A MODALITY TO 1 OR MORE AREAS; ELECTRICAL STIMULATION (MANUAL), EACH [address] [facility] THERAPEUTIC PROCEDURE, 1 OR MORE AREAS, EACH 15 MINUTES; THERAPEUTIC EXERCISES TO DEVELOP STRENGTH AND ENDURANCE, RANGE OF MOTION AND FLEXIBILITY 2015 [facility] APPLICATION OF A MODALITY TO 1 OR MORE AREAS; HOT OR COLD PACKS 2015 [facility] PHYSICAL THERAPY EVALUATION 2015 [facility] THERAPEUTIC PROCEDURE, 1 OR MORE AREAS, EACH 15 MINUTES; THERAPEUTIC EXERCISES TO DEVELOP STRENGTH AND ENDURANCE, RANGE OF MOTION AND FLEXIBILITY 2015 [facility] THERAPEUTIC PROCEDURE, 1 OR MORE AREAS, EACH 15 MINUTES; THERAPEUTIC EXERCISES TO DEVELOP STRENGTH AND ENDURANCE, RANGE OF MOTION AND FLEXIBILITY 2015 [facility] THERAPEUTIC PROCEDURE, 1 OR MORE AREAS, EACH 15 MINUTES; THERAPEUTIC EXERCISES TO DEVELOP STRENGTH AND ENDURANCE, RANGE OF MOTION AND FLEXIBILITY 2015 [facility] CHIROPRACTIC MANIPULATIVE TREATMENT (CMT); SPINAL, 1-[address] [facility] THERAPEUTIC PROCEDURE,1 OR MORE AREAS,EACH 15 MINUTES;NEUROMUSCULA R REEDUCATION OF MOVEMENT,BALANCE,BODY MAN RDINATION,KINESTHETI C SENSE,POSTURE,AND/OR PROPRIOCEPTION FOR SITTING AND/OR STANDING ACTIVITIES 2015 [facility] CHIROPRACTIC MANIPULATIVE TREATMENT (CMT); SPINAL, 3-[address] [facility] INSERTION, DRUG-DELIVERY IMPLANT (IE, BIORESORBABLE, BIODEGRADABLE, NON-BIODEGRADABLE) 2015 [facility] THERAPEUTIC PROCEDURE, 1 OR MORE AREAS, EACH 15 MINUTES; THERAPEUTIC EXERCISES TO DEVELOP STRENGTH AND ENDURANCE, RANGE OF MOTION AND FLEXIBILITY 2015 [facility] THERAPEUTIC PROCEDURE, 1 OR MORE AREAS, EACH 15 MINUTES; THERAPEUTIC EXERCISES TO DEVELOP STRENGTH AND ENDURANCE, RANGE OF MOTION AND FLEXIBILITY 2015 [facility] EDUCATIONAL SUPPLIES, SUCH BOOKS, TAPES, AND PAMPHLETS, FOR THE PATIENT'S EDUCATION AT COST TO PHYSICIAN OR OTHER QUALIFIED HEALTH LANOLIN PLANT OPERATOR 2015 [facility] ELECTROCARDIOGRAM, ROUTINE ECG WITH AT LEAST 12 LEADS; WITH INTERPRETATION AND REPORT 2015 [facility] FITTING OF SPECTACLES, EXCEPT FOR APHAKIA; MONOFOCAL 2015 [facility] VIS FUNCT SCREEN,AUTOMAT/SEMI- AUTOMAT BILAT QUANT DETERM VISUAL ACUITY,OCULAR ALIGN,COLOR VISION,PSEUDOISOCHRO MAT PLATES,& FIELD VIS (MAY INC ALL/SOME SCRN DETERM FOR CONTRAST SENSITIV,VIS UND GLARE) 2015 [facility] VIS FUNCT SCREEN,AUTOMAT/SEMI- AUTOMAT BILAT QUANT DETERM VISUAL ACUITY,OCULAR ALIGN,COLOR VISION,PSEUDOISOCHRO MAT PLATES,& FIELD VIS (MAY INC ALL/SOME SCRN DETERM FOR CONTRAST SENSITIV,VIS UND GLARE) 2015 [facility] AUDIOMETRIC TESTING OF GROUPS 2014 [facility] RESECTION OF APPENDIX, PERCUTANEOUS ENDOSCOPIC APPROACH 2014 [facility] LAPAROSCOPY, SURGICAL, APPENDECTOMY 2014 [facility] IMMUNIZATION ADMINISTRATION (INCLUDES PERCUTANEOUS, INTRADERMAL, SUBCUTANEOUS, OR INTRAMUSCULAR INJECTIONS); 1 VACCINE (SINGLE OR COMBINATION VACCINE/TOXOID) 2014 [facility] BIOPSY OF SKIN, SUBCUTANEOUS TISSUE AND/OR MUCOUS MEMBRANE (INCLUDING SIMPLE CLOSURE),UNLESS OTHERWISE LISTED (SEPARATE PROCEDURE); EACH SEPARATE/ADD LESION (LIST SEP IN ADD TO CODE FOR PRIMARY PROC) 2014 [facility] ECHOCARDIOGRAPHY,TRA NSTHORACIC,REAL-TIME W IMAGE DOCUMENTATION (2D),INCLUDES M-MODE RECORDING,WHEN PERFORMED,COMPLETE,W ITH SPECTRAL DOPPLER ECHOCARDIOGRAPHY,AND W COLOR FLOW DOPPLER ECHOCARDIOGRAPHY 2014 [facility] ELECTROCARDIOGRAM, ROUTINE ECG WITH AT LEAST 12 LEADS; WITH INTERPRETATION AND REPORT 2014 [facility] ULTRASOUND, CHEST (INCLUDES MEDIASTINUM), REAL TIME WITH IMAGE DOCUMENTATION 2014 [facility] INTRAVENOUS INFUSION, HYDRATION; EACH ADDITIONAL HOUR (LIST SEPARATELY IN ADDITION TO CODE FOR PRIMARY PROCEDURE) 2014 [facility] INJECTION OF RH IMMUNE GLOBULIN 2014 [facility] TRANSFUSION OF PACKED CELLS 2014 [facility] LOW CERVICAL SECTION 2014 [facility] OTHER ARTIFICIAL RUPTURE OF MEMBRANES 2014 [facility] MEDICAL INDUCTION OF LABOR 2014 [facility] POSTOPERATIVE FOLLOW-UP VISIT, NORMALLY INCLUDED IN THE SURGICAL PACKAGE, INDICATE THAT EVALUATION & MANAGEMENT SERVICE WAS PERFORMED DURING A POSTOPERATIVE PERIOD REASON RELATED ORIGINAL PROCEDURE 2014 [facility] POSTOPERATIVE FOLLOW-UP VISIT, NORMALLY INCLUDED IN THE SURGICAL PACKAGE, INDICATE THAT EVALUATION & MANAGEMENT SERVICE WAS PERFORMED DURING A POSTOPERATIVE PERIOD REASON RELATED ORIGINAL PROCEDURE 2014 [facility] DELIVERY ONLY 2014 [facility] SUBSEQ CARE VISIT () [EXCLS:PATIENTS WHO ARE SEEN FOR A CONDITION UNREL TO / CARE (EG,AN UP RESPIR INFECT;PATIENTS SEEN FOR CONSULTATION ONLY,NOT FOR CONT CARE)] 2014 [facility] SUBSEQ CARE VISIT () [EXCLS:PATIENTS WHO ARE SEEN FOR A CONDITION UNREL TO / CARE (EG,AN UP RESPIR INFECT;PATIENTS SEEN FOR CONSULTATION ONLY,NOT FOR CONT CARE)] 2014 [facility] NON-STRESS TEST 2014 [facility] SUBSEQ CARE VISIT () [EXCLS:PATIENTS WHO ARE SEEN FOR A CONDITION UNREL TO / CARE (EG,AN UP RESPIR INFECT;PATIENTS SEEN FOR CONSULTATION ONLY,NOT FOR CONT CARE)] 2014 [facility] SUBSEQ CARE VISIT () [EXCLS:PATIENTS WHO ARE SEEN FOR A CONDITION UNREL TO / CARE (EG,AN UP RESPIR INFECT;PATIENTS SEEN FOR CONSULTATION ONLY,NOT FOR CONT CARE)] 2014 [facility] NON-STRESS TEST 2014 [facility] SUBSEQ CARE VISIT () [EXCLS:PATIENTS WHO ARE SEEN FOR A CONDITION UNREL TO / CARE (EG,AN UP RESPIR INFECT;PATIENTS SEEN FOR CONSULTATION ONLY,NOT FOR CONT CARE)] 2014 [facility] CHIROPRACTIC MANIPULATIVE TREATMENT (CMT); SPINAL, 1-[address] [facility] IMMUNIZATION ADMINISTRATION (INCLUDES PERCUTANEOUS, INTRADERMAL, SUBCUTANEOUS, OR INTRAMUSCULAR INJECTIONS); 1 VACCINE (SINGLE OR COMBINATION VACCINE/TOXOID) 2014 [facility] RHO(D) IMMUNE GLOBULIN (RHIG), HUMAN, FULL-DOSE, FOR INTRAMUSCULAR USE 2014 [facility] CHIROPRACTIC MANIPULATIVE TREATMENT (CMT); SPINAL, 1-[address] [facility] CHIROPRACTIC MANIPULATIVE TREATMENT (CMT); SPINAL, 1-[address] [facility] NON-STRESS TEST 2014 [facility] CHIROPRACTIC MANIPULATIVE TREATMENT (CMT); SPINAL, 1-[address] [facility] SUBSEQ CARE VISIT () [EXCLS:PATIENTS WHO ARE SEEN FOR A CONDITION UNREL TO / CARE (EG,AN UP RESPIR INFECT;PATIENTS SEEN FOR CONSULTATION ONLY,NOT FOR CONT CARE)] 2014 [facility] CHIROPRACTIC MANIPULATIVE TREATMENT (CMT); SPINAL, 1-[address] [facility] EDUCATIONAL SUPPLIES, SUCH BOOKS, TAPES, AND PAMPHLETS, FOR THE PATIENT'S EDUCATION AT COST TO PHYSICIAN OR OTHER QUALIFIED HEALTH LANOLIN PLANT OPERATOR 2014 [facility] SUBSEQ CARE VISIT () [EXCLS:PATIENTS WHO ARE SEEN FOR A CONDITION UNREL TO / CARE (EG,AN UP RESPIR INFECT;PATIENTS SEEN FOR CONSULTATION ONLY,NOT FOR CONT CARE)] 2014 [facility] ULTRASOUND, UTERUS, REAL TIME WITH IMAGE DOCUMENTATION, LIMITED (EG, HEART BEAT, PLACENTAL LOCATION, POSITION AND/OR QUALITATIVE AMNIOTIC FLUID VOLUME), 1 OR [address] 2014 [facility] PHYSICAL THERAPY RE-EVALUATION 2014 [facility] ULTRASOUND, UTERUS, REAL TIME WITH IMAGE DOCUMENTATION, AND MATERNAL EVALUATION, FIRST TRIMESTER (< 14 WEEKS 0 DAYS), TRANSABDOMINAL APPROACH; SINGLE OR FIRST GESTATION 2014 [facility] SELF-CARE/HOME MANAGMENT TRAIN (EG,ACT OF DAILY LIVING (ADL) &COMPENSAT TRAIN,MEAL PREPARATION,SAFETY PROCS,AND INSTRUCT IN USE OF ASST TECHNOLOGY DEV/ADPT EQUIP) DIR ONE-ON-ONE CONT,EA [address] [facility] THERAPEUTIC PROCEDURE, 1 OR MORE AREAS, EACH 15 MINUTES; THERAPEUTIC EXERCISES TO DEVELOP STRENGTH AND ENDURANCE, RANGE OF MOTION AND FLEXIBILITY 2013 [facility] THERAPEUTIC ACTIVITIES, DIRECT (ONE-ON-ONE) PATIENT CONTACT (USE OF DYNAMIC ACTIVITIES TO IMPROVE FUNCTIONAL PERFORMANCE), EACH [address] [facility] APPLICATION OF A MODALITY TO 1 OR MORE AREAS; HOT OR COLD PACKS 2013 [facility] THERAPEUTIC ACTIVITIES, DIRECT (ONE-ON-ONE) PATIENT CONTACT (USE OF DYNAMIC ACTIVITIES TO IMPROVE FUNCTIONAL PERFORMANCE), EACH [address] [facility] SELF-CARE/HOME MANAGMENT TRAIN (EG,ACT OF DAILY LIVING (ADL) &COMPENSAT TRAIN,MEAL PREPARATION,SAFETY PROCS,AND INSTRUCT IN USE OF ASST TECHNOLOGY DEV/ADPT EQUIP) DIR ONE-ON-ONE CONT,EA [address] [facility] AUDIOMETRIC TESTING OF GROUPS 2013 [facility] FITTING OF SPECTACLES, EXCEPT FOR APHAKIA; MONOFOCAL 2013 [facility] Audiometry Group Testing Audiometry Group Testing [address] [facility] Determination Of Refractive State Determination Of Refractive State [address] [facility] Spectacles Services Fitting Monofocals (Not For Aphakia) Spectacles Services Fitting Monofocals (Not For Aphakia) 70160 2013 CHRISTAL MARCUM Ophthalmological New Patient Start Comprehensive Care Ophthalmological New Patient Start Comprehensive Care [address] [facility] Intervention And Counseling On Ce ation Of Tobacco Use Intervention And Counseling On Cessation Of Tobacco Use 4000F [address] [facility] current smoker current smoker 1034F [address] [facility] Audiometry Group Testing Audiometry Group Testing [address] [facility] Audiogram (Screening) Audiogram (Screening) [address] [facility] Ophthalmological New Patient Start Comprehensive Care Ophthalmological New Patient Start Comprehensive Care 12872 2011 [place] [place] Determination Of Refractive State Determination Of Refractive State [address] [facility] Spectacles Services Fitting Monofocals (Not For Aphakia) Spectacles Services Fitting Monofocals (Not For Aphakia) [address] Supervised Injection Intramuscular Supervised Injection Intramuscular 10805 2010 LIOR HERNANDEZ Physical Therapy: ___ Se ion Segments, 15 Minutes Each Physical Therapy: ___ Session Segments, 15 Minutes Each 94665 2010 PATY WEINSTEIN Lift, elevation, heel, per inch 2010 SPENSER GARCIA Screening papanicolaou smear; obtaining, preparing and conveyance of cervical or vaginal smear to laboratory 2010 FANNY LOMBARDO Ophthalmological New Patient Start Comprehensive Care Ophthalmological New Patient Start Comprehensive Care [id number] 2010 DANISH BERG Threshold Audiogram (Pure Tone) Threshold Audiogram (Pure Tone) 36184 2010 JHONATAN CARVAJAL Audiometry Group Testing Audiometry Group Testing 26389 2010 JHONATAN CARVAJAL Visual Function Screening Visual Function Screening 38066 2016 SLIM POWELL Audiometry Group Testing Audiometry Group Testing 49789 2016 CORNELIO HANDLEY Physical Medicine Physical Therapy Re-Evaluation Physical Medicine Physical Therapy Re-Evaluation 39645 2015 ALISA FERRARA Modalities Heat Hot Packs Modalities Heat Hot Packs 36693 2015 CAROLYNE MA Mobilization Soft Ti ue Mobilization Soft Tissue 38606 2015 CAROLYNE MA Physical Therapy Mobilization Joint Physical Therapy Mobilization Joint 28173 2015 CAROLYNE MA Exercises A isted Exercises For ROM Exercises Assisted Exercises For ROM 86780 2015 CAROLYNE MA Modalities Heat Hot Packs Modalities Heat Hot Packs 84066 2015 LAMSEN, EL V Alfredo Physical Therapy Mobilization Joint Physical Therapy Mobilization Joint 83649 2015 LAMSEN, EL V Alfredo Exercises A isted Exercises For ROM Exercises Assisted [place]ercises [place] ROM 53075 2015 LAMSEN, EL V Alfredo Physical Therapy: ___ Se ion Segments, 15 Minutes Each Physical Therapy: ___ Session Segments, 15 Minutes Each 74489 2015 LAMSEN, EL V DoD Mobilization Soft Ti ue Mobilization Soft Tissue 25353 2015 CAROLYNE MA DoD Modalities Heat Hot Packs Modalities Heat Hot Packs 58262 2015 CAROLYNE MA Exercises A isted Exercises For ROM Exercises Assisted [place]ercises [place] ROM 96140 2015 CAROLYNE MA Physical Medicine Physical Therapy Re-Evaluation Physical Medicine Physical Therapy Re-Evaluation 92595 2015 ALISA FERRARA DoD Exercises A isted Exercises For ROM [place]ercises [place] 03900 2015 CAROLYNE MA Modalities Electrical Stimulation Unattended Modalities Electrical Stimulation Unattended 37360 2015 CAROLYNE MA Modalities Heat Hot Packs Modalities Heat Hot Packs 42412 2015 CAROLYNE MA Immunization Administration One Vaccine Immunization Administration One Vaccine 28358 2015 MASOUD GARCIA Influenza Split (Injectable); Series #: 1; .5 mL; IM; Unkown Arm; Mfg: [employer] Lot: [id number]; Exp. [id number]. DoD Modalities Electrical Stimulation Unattended Modalities Electrical Stimulation Unattended 58659 2015 LAMSEN, EL V DoD Modalities Heat Hot Packs Modalities Heat Hot Packs 15643 2015 LAMSEN, EL V DoD Exercises A isted Exercises For ROM Exercises Assisted Exercises For ROM 72395 2015 LAMSEN, EL V DoD Physical Therapy: ___ Se ion Segments, 15 Minutes Each Physical Therapy: ___ Session Segments, 15 Minutes Each 85031 2015 LAMSEN, EL V DoD Exercises A isted Exercises For ROM Exercises Assisted Exercises For ROM 14942 2015 CAROLYNE MA DoD Modalities Electrical Stimulation Unattended Modalities Electrical Stimulation Unattended 66393 2015 CAROLYNE MA DoD Modalities Heat Hot Packs Modalities Heat Hot Packs 80365 2015 CAROLYNE MA Modalities Electrical Stimulation Modalities Electrical Stimulation 45067 2015 LAMSEN, EL V DoD Modalities Heat Hot Packs Modalities Heat Hot Packs 32575 2015 LAMKARIN, EL V Alfredo Exercises A isted Exercises For ROM Exercises Assisted Exercises For ROM 16453 2015 LAMSEN, EL V Alfredo Physical Therapy: ___ Se ion Segments, 15 Minutes Each Physical Therapy: ___ Session Segments, 15 Minutes Each 25341 2015 EL SIDDIQUI Exercises A isted Exercises For ROM Exercises Assisted Exercises For ROM 12026 2015 CAROLYNE MA Modalities Heat Hot Packs Modalities Heat Hot Packs 84697 2015 CAROLYNE MA Exercises A isted Exercises For ROM Exercises Assisted [place]ercises [place] ROM 85993 2015 CAROLYNE MA Physical Therapy: ___ Se ion Segments, 15 Minutes Each Physical Therapy: ___ Session Segments, 15 Minutes Each 02976 2015 ALISA FERRARA Therex x 15 minutes; those listed as Home Exercise Program [facility] Physical Medicine Physical Therapy Evaluation Physical Medicine Physical Therapy Evaluation 94794 2015 ALISA FERRARA Exercises A isted Exercises For ROM Exercises Assisted Exercises For ROM 01663 2015 CAROLYNE MA Exercises A isted Exercises For ROM Exercises Assisted [place]erc[place] ROM 61350 2015 CAROLYNE MA Physical Therapy: ___ Se ion Segments, 15 Minutes Each Physical Therapy: ___ Session Segments, 15 Minutes Each 80205 2015 ALISA FERRARA Therex x 15 minutes; those listed as Home Exercise Program [facility] Osteopathic Manip Treatment (OMT) 1-2 Body Regions Involved Osteopathic Manip Treatment (OMT) 1-2 Body Regions Involved 75078 2015 ALISA FERRARA OMT to t-spine in prone and supine; multiple cavitations heard [facility] Physical Medicine Physical Therapy Re-Evaluation Physical Medicine Physical Therapy Re-Evaluation 65061 2015 ALISA FERRARA Chiropractic Manip Treatmt (CMT) Spinal One To Two Regions Chiropractic Manip Treatmt (CMT) Spinal One To Two Regions 46235 2015 FANNY JO Supine and side-lying SMT to C-spine and pelvis [facility] Physical Therapy Neuromuscular Re-education Physical Therapy Neuromuscular Re-education [address] [facility] Physical Therapy: ___ Se ion Segments, 15 Minutes Each Physical Therapy: ___ Session Segments, 15 Minutes Each 38216 2015 RILEY JEANCARLOS Alfredo Chiropractic Manip Treatmt (CMT) Spinal Three To Four Region Chiropractic Manip Treatmt (CMT) Spinal Three To Four Region 22473 2015 FANNY JO Supine and side-lying SMT to C/T/L-spine, left 3rd rib and pelvis [facility] Implantable Contraceptive Capsules - Insertion 2015 BORIS [...] IN EXCELLENT CONDITION UPON EXITING THE CLINIC. [facility] Physical Therapy: ___ Se ion Segments, 15 Minutes Each Physical Therapy: ___ Session Segments, 15 Minutes Each 00325 2015 YOLANDA, JULIA BETH Therex x 15 min; those listed as HEP [facility] Physical Medicine Physical Therapy Evaluation Physical Medicine Physical Therapy Evaluation 38503 2015 JULIA GUERRERO Exercises A isted Exercises For ROM Exercises Assisted Exercises For ROM 56797 2015 FANNY JO 8 minutes: Strengthening: Pelvic tilt, crunches, Postural and scapular stabilization basics Stretching: Piriformis, Alfredo Chiropractic Manip Treatmt (CMT) Spinal Three To Four Region Chiropractic Manip Treatmt (CMT) Spinal Three To Four Region 17292 2015 FANNY JO Supine SMT to upper C-spine and left 3rd rib. Side-lying SMT to L5 and pelvis; ART to left piriformis. Alfredo Gay-Supervised Services Provision Of Educational Supplies -Supervised Services Provision Of Educational Supplies 91663 2015 FANNY JO Printed home exercise instructions. Alfredo Exercises A isted Exercises For ROM Exercises Assisted Exercises For ROM 99713 2015 FANNY JO 8 minutes: Strengthening: Pelvic tilt, crunches, Postural and scapular stabilization basics Stretching: iformis, Alfredo Chiropractic Manip Treatmt (CMT) Spinal Three To Four Region Chiropractic Manip Treatmt (CMT) Spinal Three To Four Region 24389 2015 FANNY JO Supine and side-lying SMT to C/T/L-spine, ribs and pelvis Alfredo [employer] [facility] Fitting Monofocals (Not For Aphakia) [facility] [facility] Fitting Monofocals (Not For Aphakia) 16341 2015 SHERLYN ALEJANDRO Determination Of Refractive State Determination Of Refractive State 97218 2015 SHERLYN ALEJANDRO Ophthalmological New Patient Start Comprehensive Care Ophthalmological New Patient Start Comprehensive Care 11886 2015 SHERLYN ALEJANDRO Visual Function Screening Visual Function Screening 50817 2015 JUAN CARLOS KEARNS Visual Function Screening Visual Function Screening 85620 2015 SHERLYN ALEJANDRO Audiometry Group Testing Audiometry Group Testing 03025 2014 SHERLYN GANN Skin Test Anergy Tuberculin Intradermal Skin Test Anergy Tuberculin Intradermal 80005 2014 VALERIANO ZARATELLE Efren IPPD; Series #: 1; .1 mL; ID; Left Arm; Mfg: [employer]; Lot: [id number]. DoD Vaccines Vaccines 11633 2014 VALERIANO ZARATELLE Efren Influenza Split (Injectable); Series #: 1; .5 mL; IM; Left Arm; Mfg: [employer].; Lot: [id number]. DoD Immunization Administration One Vaccine Immunization Administration One Vaccine [address] [facility] Biopsy Skin Each Additional Lesion Biopsy Skin Each Additional Lesion [address] [facility] Biopsy Skin Biopsy Skin 07616 2014 HECTOR LAMAS AFTER EXPLAINING NATURE OF [...] CALL PATIENT WITH PATH RESULTS WHEN AVAILABLE. [facility] Electrocardiogram Electrocardiogram 53178 12/[address] [facility] OB Services Antepartum Care Only Subsequent Single Visit OB Services Antepartum Care Only Subsequent Single Visit 0502F 2014 DARY[address]Z [facility] OB Services Antepartum Care Only Subsequent Single Visit OB Services Antepartum Care Only Subsequent Single Visit 0502F [address] [facility] OB Services Antepartum Care Only Subsequent Single Visit OB Services Antepartum Care Only Subsequent Single Visit 0502F [address] [facility] OB Services Antepartum Care Only Subsequent Single Visit OB Services Antepartum Care Only Subsequent Single Visit 0502F [address]PE[address] [facility] OB Services Antepartum Care Only Subsequent Single Visit OB Services Antepartum Care Only Subsequent Single Visit 0502F 2014 DARYL LÓPEZ Chiropractic Manip Treatmt (CMT) Spinal One To Two Regions Chiropractic Manip Treatmt (CMT) Spinal One To Two Regions 29964 2014 FANNY JO Side-lying SMT to L-spine and pelvis after ART to piriformis bilaterally and left iliolumbar multifiddii. [facility] Immunization Administration One Vaccine Immunization Administration One Vaccine 05926 2014 ROSA ELENA GOODWIN Tdap Vaccine Seven Years Of Age And Above Tdap Vaccine Seven Years Of Age And Above 14297 2014 ROSA ELENA GOODWIN Rho D Immune Globulin (Human) Intramuscular Use Full-dose Rho D Immune Globulin (Human) Intramuscular Use Full-dose 02540 2014 SYMONE TALAVERA Chiropractic Manip Treatmt (CMT) Spinal One To Two Regions Chiropractic Manip Treatmt (CMT) Spinal One To Two Regions 46578 2014 FANNY JO Supine and side-lying SMT to C/T/L-spine, ribs and pelvis; ART to left piriformis Alfredo Chiropractic Manip Treatmt (CMT) Spinal One To Two Regions Chiropractic Manip Treatmt (CMT) Spinal One To Two Regions 52768 2014 FANNY JO Side-lying SMT to L-spine and pelvis after ART to multifiddii and piriformis, instructed in sitting multifiddii stretch. [facility] Chiropractic Manip Treatmt (CMT) Spinal One To Two Regions Chiropractic Manip Treatmt (CMT) Spinal One To Two Regions 58256 2014 FANNY JO Supine and side-lying SMT to T/L-spine and pelvis after ART to hip flexors and piriformis [facility] OB Services Antepartum Care Only Subsequent Single Visit OB Services Antepartum Care Only Subsequent Single Visit 0502F 2014 TIMO JACKSON Chiropractic Manip Treatmt (CMT) Spinal One To Two Regions Chiropractic Manip Treatmt (CMT) Spinal One To Two Regions 87818 2014 FANNY JO Side-lying SMT to L-spine and pelvis; ART to lumbar multifiddii and instruction in stretching multifiddi, recumbant and seated positions. Alfredo Gay-Supervised Services Provision Of Educational Supplies -Supervised Services Provision Of Educational Supplies 69748 2014 FANNY JO Printed home exercise instructions Alfredo Exercises A isted Exercises For ROM Exercises Assisted Exercises For ROM 58537 2014 FANNY JO 8 minutes: Stretching: Piriformis, after ART to piriformis and right psoas. [facility] Chiropractic Manip Treatmt (CMT) Spinal One To Two Regions Chiropractic Manip Treatmt (CMT) Spinal One To Two Regions 18658 2014 FANNY JO Side-lying SMT to pelvis. Alfredo OB Services Antepartum Care Only Subsequent Single Visit OB Services Antepartum Care Only Subsequent Single Visit 0502F 2014 TIMO JACKSON Ultrasound Obstetric Limited Evaluation Ultrasound Obstetric Limited Evaluation 17277 2014 TIMO JACKSON OB Services Antepartum Care Only First Visit, With Report OB Services Antepartum Care Only First Visit, With Report 0500F 2014 TIMO JACKSON Mobilization Soft Ti ue Mobilization Soft Tissue 53496 2014 CORNELIO MERCER Physical Medicine Physical Therapy Re-Evaluation Physical Medicine Physical Therapy Re-Evaluation 12599 2014 CORNELIO MERCER Transabdominal Ultrasound Single Or First Gestation Transabdominal Ultrasound Single Or First Gestation 85000 2014 SENA BERNABE Phys Therapy Education Self Care Training - Per 15 Minutes Phys Therapy Education Self Care Training - Per 15 Minutes 13267 2013 GIANFRANCO JOINER Exercises A isted Exercises For ROM Exercises [place]isted [place] 46765 2013 GIANFRANCO JOINER Physical Medicine Physical Therapy Re-Evaluation Physical Medicine Physical Therapy Re-Evaluation 57220 2013 GIANFRANCO JOINER Physical Therapy: ___ Se ion Segments, 15 Minutes Each Physical Therapy: ___ Session Segments, 15 Minutes Each 05932 2013 ABRAN BRICEÑO PT A e ment Kinetic Training PT Assessment Kinetic Training 38200 2013 JAMES ALVAREZ Modalities Cryotherapy Cold Packs Modalities Cryotherapy Cold Packs 64306 2013 DANISH COWART Physical Therapy: ___ Se ion Segments, 15 Minutes Each Physical Therapy: ___ Session Segments, 15 Minutes Each [address] [facility] Physical Therapy: ___ Se ion Segments, 15 Minutes Each Physical Therapy: ___ Session Segments, 15 Minutes Each [address] [facility] PT A e ment Kinetic Training PT Assessment Kinetic Training 32064 2013 ROSA ELENA SIDHU Phys Therapy Education Self Care Training - Per 15 Minutes Phys Therapy Education Self Care Training - Per 15 Minutes [address] [facility] Exercises A isted Exercises For ROM Exercises [place] [address] [facility] Physical Medicine Physical Therapy Evaluation Physical Medicine Physical Therapy Evaluation [address] 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 Social History Type Response Date Comment Sourc e Tobacco smoking status NHIS VA-TOBACCO FORMER USER 11/27/2023 [facility] [place] [facility] History of tobacco use NV-TOBACCO QUIT 5 TO < 15 YRS 11/27/2023 [facility] History of tobacco use VA-TOBACCO FORMER USER 01/30/2023 [facility] History of tobacco use VA-TOBACCO FORMER USER 02/07/2022 [facility] History of tobacco use VA-TOBACCO FORMER USER [facility] History of tobacco use VA-TOBACCO FORMER USER 02/28/2018 [facility] History of tobacco use NV-TOBACCO QUIT 1 TO < 5 YRS 12/13/2017 [facility] History of tobacco use QUIT TOBACCO >12 MO and <7 YRS AGO 11/04/2017 [facility] History of tobacco use QUIT TOBACCO >12 MO and <7 YRS AGO 07/04/2017 [facility] This section is an empty social history section. [facility] Plan of Care List of future care activities from Department of 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 Additional future care activities may be listed in the Assessment and Plan section. Date/Time Care Activity Care Activity Detail Facili ty 10/07/2024 AMBULATORY - NONE AMBULATORY - NONE [facility]
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
--- OUTSIDE RECORDS SUMMARY | 2024-10-05 20:35 | XMS_ITS | Clinical Summary ---
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 Gender Identity Not on file Sexual Orientation Not on file Plan of Treatment Health Maintenance Due Date Last Done Comments Cervical Cancer Screening Pa p Smear (Age 30 to 64) Every 3 Years 1988 Annual Physical 11/26/1991 Hepatitis C 2006 DTaP, Tdap and Td Vaccines ( 1 - Tdap) 11/26/2007 Hepatitis B Vaccines (1 of 3 - 19+ 3-dose series) 11/26/2007 HPV Vaccines (1 - 3-dose SCD M series) 11/26/2015 Cervical Cancer Screening Pa p with HPV Testing (Age 30 to 64) Every 5 Years 2018 Cervical Cancer Screening with HPV 2018 COVID-19 Vaccine ( - 2023-2 5 season) 2023 Meningococcal B Vaccine Aged Out No l onger eligible based on patient's age to complete this topic Meningococcal Vaccine Aged Out No malia estefania eligible based on patient's age to complete this topic Pneumococcal Vaccine: Pediat rics (0 to 5 Years) and At-Risk Patients (6 to 49 Years) Aged Out No longer eligible b ased on patient's age to complete this topic RSV Immunizations Under 20 Months Aged Out No longer eligible based on patient's age to complete this topic
--- OUTSIDE RECORDS SUMMARY | 2024-10-05 20:35 | XMS_ITS | Clinical Summary ---
Author Organization [facility] Address [address] [facility] [address] [place] [address] Care Team Providers Care Stripper Soft Plastic Name Role Phone Antolin Jennifer Love APRN-EMPLOYMENT OFFICE CLERK Primary Care Provider Source Comments [facility],non-owned Affiliates and Associated Physician Practices is amultiple site organization consisting of ambulatory clinics and hospital sitesin [place], [place], [place] and [place]. This disclosure is being madepursuant to the Care Everywhere program and may not contain all information available regarding this patient. 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 Gender Identity Not on file Sexual Orientation Not on file Last Filed Vital Signs Vital Sign Reading Time Taken Comments Blood Pressure 118/78 04/09/2017 10:26 AM DIESEL POWERPLANT SUPERVISOR Pulse 63 04/09/2017 10:26 AM DIESEL POWERPLANT SUPERVISOR Temperature 36.8 C (98.2 F) 04/09/2017 10:26 AM DIESEL POWERPLANT SUPERVISOR Respiratory Rate 16 11/02/2016 2:07 PM CDT Oxygen Saturation 93% 04/09/2017 10:26 AM DIESEL POWERPLANT SUPERVISOR Inhaled Oxygen Concentration - - Weight 97.8 kg (215 lb 8 oz) 04/09/2017 10:26 AM DIESEL POWERPLANT SUPERVISOR Height 172.7 cm (5' 8) 04/09/2017 10:26 AM DIESEL POWERPLANT SUPERVISOR Body Mass Index 32.77 04/09/2017 10:26 AM DIESEL POWERPLANT SUPERVISOR Plan of Treatment Health Maintenance Due Date Last Done Comments HIV SCREENING 11/26/2003 HEPATITIS C SCREENING 11/21/2006 DTAP/TDAP/TD VACCINES (1 - Tdap) 11/26/2007 HEPATITIS B VACCINE (1 of 3 - 19+ 3-dose series) 11/26/2007 HPV VACCINE (1 - 3-dose SCDM series) 11/26/2015 COVID-19 VACCINE (1 - 2023- season) 2023 DEPRESSION SCREENING 03/11/2024 INFLUENZA VACCINE (#1) 2024 6, 01/24/2015, 12/04/2013, Additional history exists ZOSTER VACCINE [...] patient's age to complete this topic Insurance [facility] Care Teams Stripper Soft Plastic Relationship Specialty Start Date End Date Jennifer Dangelo, [employer] ARTIST-EMPLOYMENT OFFICE CLERK PCP - General Nurse Practitioner 05/10/16
--- OUTSIDE RECORDS SUMMARY | 2024-10-05 20:35 | XMS_ITS | Clinical Summary ---
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 She desires cell free DNA testing. Rh negative state in antepartum period 01/17/2024 09/16/2024 Encounters Date Type Department Care Team Description 09/16/2024 2:35 PM CDT Lab [address] Diastolic dysfunction 09/16/2024 2:00 PM CDT Office Visit [facility] [place] [phone] Angel Horan MD Encounter for visit (Primary Dx) 09/01/2024 1:00 PM CDT Telemedicine [facility] Cardiology [address] [place] [address] Medical Office Building [address] [place] [address] Bertha Barker MD Preeclampsia in period (Primary Dx); Diastolic dysfunction; Bradycardia; Single subsegmental pulmonary embolism without acute cor pulmonale (HCC) 09/01/2024 Telephone [facility] Transplant Heart [address] [facility] [address] Mailstop [phone] [place] [address] Elsy Hdz RN 08/09/2024 [facility] Post Discharge Follow up phone call [facility] [address] [place] [address] Iveth Berry RN 08/07/2024 11:45 AM CDT Office Visit [address] [phone] Angel Horan MD hypertension (Primary Dx) 08/06/[address] [address] Angel Horan MD 08/05/2024 Results Follow-Up [address] [address] Angel Horan MD F5 (FVL) and F2 (Prothrombin) Mutations 08/04/2024 11:00 AM CDT Office Visit [address] [phone] Angel Horan MD Blood pressure check (Primary Dx) 08/04/[address] [phone] Bee Friedman RN EKG Result 08/03/2024 11:50 PM CDT - 08/04/2024 4:24 AM CDT Emergency [facility] Emergency Department [address] [place] [address] Hardik Bain MD Essential hypertension (Primary Dx); Acute cystitis with hematuria Discharge Disposition: Discharge to home or self care 07/30/2024 2:54 PM CDT - 08/01/2024 1:05 PM CDT Hospital Encounter [address] [address] Leona Petit MD Sauer, Megan Elizabeth, DO Talsky, Joseph Mark, MD hypertension (Primary Dx); Single subsegmental pulmonary embolism without acute cor pulmonale (HCC) [I26.93]; Acute nonintractable headache, unspecified headache type [R51.9]; Fever, unspecified fever cause [R50.9] Discharge Disposition: Discharge to home or self care 07/30/2024 4:13 AM CDT - 07/30/2024 8:45 AM CDT Emergency [facility] Emergency Department [address] [place] [address] Kelly Oviedo MD Zozula, Killian Palacios MD Acute pulmonary embolism without acute cor pulmonale, unspecified pulmonary embolism type (HCC) (Primary Dx); ABLA (acute blood loss anemia); Elevated blood pressure reading Discharge Disposition: Discharge to home or self care 07/29/2024 10:00 AM CDT Clinical Support [address] [place] [phone] Encounter for staple removal (Primary Dx) 07/29/[address] [place] [phone] Sweta Zarate MA EPDS 07/28/2024 12:45 PM CDT Telemedicine [facility] Cardiology [facility] Medical Office Building [address] [place] [address] Bertha Barker MD follow-up (Primary Dx); Diastolic dysfunction; History of pre-eclampsia 07/27/[address] [place] [phone] Angel Horan MD 07/26/2024 Orders Only [address] [phone] Lisa Uribe DO 07/24/2024 8:00 AM CDT Anesthesia Event [facility] 1 [place] [address] Chris Fernandez MD 07/24/2024 7:30 AM CDT - 07/24/2024 9:00 AM CDT Surgery [facility] [place] 1 [place] [address] Angel Horan MD REPEAT SECTION WITH BILATERAL SALPINGECTOMY 07/24/2024 5:18 AM CDT - 07/26/2024 2:15 PM CDT Hospital Encounter [address] [phone] Angel Horan MD delivery delivered [O82] (Primary Dx); Previous section; Encounter for sterilization; 39 weeks gestation of [Z3A.39] Discharge Disposition: Discharge to home or self care 07/20/2024 1:00 PM CDT Office Visit [facility] [address] [place] [phone] Angel Horan MD Encounter for supervision of other normal in third trimester (Primary Dx); 38 weeks gestation of 07/13/2024 1:15 PM CDT Office Visit Jaylenenaima STROUD [employer] [address] [place] [address] [place] [phone] Angel Horan MD Encounter for supervision of normal first in third trimester (Primary Dx); 37 weeks gestation of ; History of delivery from Last 3 Months Immunizations Immunization Administration Dates Next Due Influenza, Trivalent, Preser vative Free, Intramuscular 02/14/2024 Varicella 06/16/2024(Deferred: Patient Ref used) Surgical History Surgery Date Site/Laterality Comments APPENDECTOMY 2015 SECTION 2014 Medical History Medical History Date Comments H/O pre-eclampsia History of gestational diabetes mellitus (GDM) History of transfusion GERD (gastroesophageal reflux disease) 2015 Menstrual problem 2022 Anxiety 2017 Arthritis 2017 Family History Medical History Relation Name Comments AVM Father Dad Depression Father Dad Diabetes Father Dad Stroke Father Dad Relation Name Status Comments Father Dad Mother Alive Social History Tobacco Use Types [...] How often do you attend chur or faith services? Patient declined 07/24/2024 Do you belong to any clubs o r organizations such as druze groups, unions, fraternal or athletic groups, or [...] staff should administer the PHQ-9) 0 07/24/2024 [facility] - Occupational [...] things needed for daily living? No 07/24/2024 Weed Depression Scale Answer Date Recorded Weed Depression Scale Total 8 07/29/2024 The thought [...] any time in the past 12 m [facility], were you homeless or living [...] N Livin g 9 9 Dahlia Olive on Gonzalez Araujo MD Complications:None Delivery Location:This Facil ity ([facility] L AND D PROCEDURE) Last Filed Vital Signs Vital Sign Reading [...] 09/16/2024 2:02 PM CDT Plan of Treatment Health Maintenance Due Date Last Done Comments DTaP/Tdap/Td Vaccine (1 - Tdap) 11/26/1999 Varicella Vaccines (1 of 2 - 13+ 2-dose series) 2001 Hepatitis B Screening 2006 Regular Well Visit/Exam 18-64 2006 HPV Vaccines (1 - 3-dose SCD M series) 11/26/2015 Covid-19 Vaccine (2 - 2023-2 5 season) 2023 01/31/2021 Influenza Vaccine (#1) 2024 , 01/15/2023 Cervical Cancer Screening 01/16/2025 01/17/2024 Depression Screening 07/29/2025 07/29/2024, 06/30/2024, 06/05/2024 Hepatitis C Screening Completed 01/17/2024 Pneumococcal vaccine <65 Aged Out No longer [...] CDT PROTIME-INR STAT 07/31/2024 1:36 PM CDT NE CRITICAL CARE ILL/INJURED PATIENT INIT 30-74 MIN Routine 07/30/2024 4:[address] HEAD WO CONTRAST ED 07/30/2024 4 :06 PM CDT ECG 12-LEAD STAT 07/30/2024 3:38 PM CDT XR CHEST 1 VIEW ED 07/30/2024 3:31 PM CDT NE CRITICAL CARE ILL/INJURED PATIENT INIT 30-74 MIN [...] 6:53 AM CDT SURGICAL PATHOLOGY Routine 07/24/2024 9 :44 AM CDT Previous section Encounter for sterilization [...] TO HPV GENOTYPES Routine 01/17/2024 4:25 PM FORGE UTILITY WORKER Encounter for supervision of other normal in first trimester HEPATITIS C ANTIBODY Routine 01/17/2024 3:07 PM FORGE UTILITY WORKER Encounter for supervision of other normal in [...] CDT Bertha Barker MD LAB BLOOD ORDERABLES nal Result [facility] ([place]AY[place]) 1 [facility] Department [place] [address] * Basic metabolic panel (09/16/2024 2:32 PM CDT) Sodium 140 135 - 145 mmol/L Potassium, pl 4.2 3.3 - 4.9 mmol/L [facility] ([place]) Chloride 99 97 - 110 mmol/L [facility] ([place]) CO2 26 22 - 32 mmol/L [facility] ([place]) Anion gap 15 2 - 15 mmol/L [facility] ([place]) BUN 16 6 - 25 mg/dL [facility] ([place]) Creatinine 0.78 0.60 - 1.10 mg/dL [facility] ([place]) Glucose 87 70 - 199 mg/dL [facility] ([place]) [...] 2022. Calcium 10.1 8.5 - 10.3 mg/dL [facility] ([place]) Blood 09/16/2024 2:32 PM CDT 09/16/2024 4:22 PM CDT Bertha Barker MD LAB BLOOD ORDERABLES Fi nal Result Performing Organization Address [facility] Co de Phone Number JOHN MULLER (COMMERCE) 1 [facility] Department [place] [address] * ECG 12 lead (08/04/2024 12:29 AM CDT) 08/04/2024 12:2 9 AM CDT Narrative [facility] - 08/04/2024 9:56 AM CDT Vent Rate: 50 bpm RR Interval: 1194 msec NE Interval: 155 msec QRS Duration: 90 msec QT Interval: 412 msec QTC Interval: 385 msec P-R-T [place]: 33 - 32 - 23 degrees IMPRESSION: SINUS BRADYCARDIA WITH MARKED SINUS ARRHYTHMIA BORDERLINE ECG Compared to prior EKG heart rate decreased Electronically Signed By: Mike Loja MD [facility] Hardik Bain MD ECG ORDERABLES Final Result Performing Organization Address [facility] de Phone Number [facility] * Troponin T high-sensitivity series (baseline, [...] ORDERABLES Final R esult Performing Organization Address [facility] Co de Phone Number JOHN MULLER (JAYLENE) [address] [facility] Department [place] [address] * (ABNORMAL) Urinalysis reflex to microscopic and [...] tendency for uric acid stone formation. Source: [facility] [employer] Current Interpretive Data was last revised on [...] - GENERAL O RDERABLES Final Result [facility] (JAYLENE) [address] [facility] Department [place] [address] * (ABNORMAL) Urinalysis, microscopic only (08/04/2024 12:26 AM CDT) WBC, ur 11-20(A) 0 - 5 /HPF RBC, ur 6-10(A) 0 - 2 /HPF [facility] ([place]) Epithelial cells, squamous, ur 1-5 0 - 5 /HPF [facility] ([place]) Bacteria, ur 3+(A) JOHN [facility] ([place]) Mucous, ur Present(A) JOHN Don (COMMER[place]) Culture Reflex Comment Reflex to urine culture will be performed. JOHN [facility] ([place]) Urine 08/04/2024 12:2 6 AM CDT 08/04/2024 12:36 AM CDT Hardik Bain MD LAB URINE ORDERABLES Final R esult Performing Organization Address City/[facility]/ZIP Co de Phone Number JOHN [facility] ([place]) 1 [facility] Department [place] [address] * Urine culture Urine (08/04/2024 12:26 AM CDT) Report Final Report: No growth Comment:Testing performed by : [facility], [address] [place] [address] Urine 08/04/2024 12:2 6 AM CDT 08/04/2024 3:22 AM CDT Narrative [facility] ([place]) - 08/05/2024 7:20 AM CDT Urine culture reflexed based upon urinalysis results. Testing performed by [facility] Micro[facility] ([phone]) Hardik Bain MD LAB MICROBIOLOGY - GENERAL O RDERABLES Final Result Performing Organization Address [facility] Co de Phone Number [facility] ([place]) 1 [facility] [place] [address] * eGFR (08/04/2024 12:25 AM CDT) eGFR [...] BLOOD ORDERABLES Final R esult [facility] ([place]) 1 [facility] Department [place] [address] * (ABNORMAL) Differential, auto (08/04/2024 12:25 AM [...] LAB BLOOD ORDERABLES Final R esult JOHN RENZO (COMMER[place]) 1 [facility] Department [place] [address] * (ABNORMAL) CBC with auto differential (08/04/2024 [...] ORDERABLES Final R esult Performing Organization Address City/[facility]/ZIP Co de Phone Number JOHN MULLER (COMMER[place]) 1 [facility] [employer] [place] [address] * (ABNORMAL) Uric acid (08/04/2024 12:25 AM CDT) Uric acid 8.3(H) 2.5 - 7.0 mg/dL Blood 08/04/2024 12:2 5 AM CDT 08/04/2024 12:36 AM CDT Hardik Bain MD LAB BLOOD ORDERABLES Final R esult Performing Organization Address City/[facility]/ZIP Co de Phone Number JOHN MULLER (COMMERCE) 1 [facility] [employer] [place] [address] * Magnesium (08/04/2024 12:25 AM CDT) Magnesium 1.8 1.4 - 2.5 mg/dL Blood 08/04/2024 12:2 5 AM CDT 08/04/2024 12:36 AM CDT Hardik Bain MD LAB BLOOD ORDERABLES Final R esult JOHN MULLER (JAYLENE) [address] Department [place] [address] * Lactate dehydrogenase (LD) (08/04/2024 12:25 AM CDT) Pathologist [facility] Lactate dehydrogenase (LDH) 228 100 - 250 Units/L Blood 08/04/2024 12:2 5 AM CDT 08/04/2024 12:36 AM CDT Hardki Bain MD LAB BLOOD ORDERABLES Final R esult JONH [facility] ([place]AYLENE) 1 [facility] Department [place] [address] * (ABNORMAL) Comprehensive metabolic panel (08/04/2024 12:25 AM CDT) Pathologist [facility] Sodium 139 135 - 145 mmol/L Potassium, pl 4.0 3.3 - 4.9 mmol/L [facility] (JAYLENE) Chloride 101 97 - 110 mmol/L [facility] ([place]) CO2 23 22 - 32 mmol/L [facility] ([place]) Anion gap 15 2 - 15 mmol/L [facility] ([place]) BUN 16 6 - 25 mg/dL [facility] ([place]) Creatinine 0.87 0.60 - 1.10 mg/dL [facility] ([place]) Glucose 94 70 - 199 mg/dL [facility] ([place]AY[place]E) Comment: Interpretive Data Fasting glucose [...] 0.2 0.1 - 1.2 mg/dL [facility] ([place]) Protein, pl 6.9 6.5 - 8.5 g/dL [...] MD LAB BLOOD ORDERABLES Final R esult [facility]ROSALBA [facility] (JAYLENE) 1 [facility] Department [place] [address] * F5 (FVL) and F2 (Prothrombin) Mutations (07/31/2024 1:36 PM CDT) Pathologist [facility] Factor V Leiden F5 Normal Normal [facility] Comment:Testing performed by : [facility], [address] [place] [address]., [address] Factor V Leiden Interpretation The patient is negative for the Factor V Leiden mutation (F5:c.1601G>A, p.R534Q) with two copies of the normal allele. [facility] (JAYLENE) Comment:Testing performed by : [facility], [address] [place] [address], [place]., [address] Prothrombin F2 Mutation Normal Normal [facility] (JAYLENE) Comment:Testing performed by : [facility], [address] [place] [address], [place]., [address] Prothrombin F2 Interpretation The patient is negative for the prothrombin gene mutation (F2 c.*97G>A ([id number])) with two copies of the normal allele). [facility] (JAYLENE) Comment:Testing performed by : [facility], [address] [place] [address], [place]., [address] FVL and Prothrombin Specimen Blood [facility] (JAYLENE) Comment:Testing performed by : [facility], [address] [facility], [place]., [address] FVL and Prothrombin Result Review Final report reviewed by: Van Martin BA, MB([facility])CM, [employer], on 08/05/2024 09:07:10 CDT. JOHN MULLER (COMMERCE) Comment: Interpretive Data Testing was performed simultaneously [...] is recommended. Method: This assay utilizes the meets Xpert FII & FV qualitative in vitro diagnostic genotyping test for the detection of targeted FV and F2 alleles from sodium citrate or EDTA anticoagulated whole blood. This test is performed on the [employer] D[employer] System which automates and integrates sample purification, nucleic acid amplification, and detection of the target sequence in whole blood using real- time Polymerase Chain Reaction (PCR) assays based on Scorpion PCR technology. Note: F5 (NM_000130.5):c.1601G>A, R534Q or Factor V Leiden is also referred to as c.1691G>A, p.R506Q in the literature. FDA statement: The meets Xpert FII & FV qualitative in vitro diagnostic genotyping test for use on specimens from adult populations. The roving weight gauger did not evaluate testing on samples from pediatric patients (<18 years of age). The performance characteristics of this test on specimens from pediatric patients have been assessed by the [facility] and deemed acceptable for clinical reporting. The [employer] Xpert FII & FV genotyping test is FDA-cleared for testing unprocessed peripheral blood specimens containing either EDTA or sodium citrate. Processing of specimens submitted for reflex testing requires modifications from the roving weight gauger's instructions. The performance characteristics of those modifications, if necessary, have been determined by [facility] in a manner consistent [...] to invalid or erroneous results. References: 1. [employer] Xpert Factor II and Factor V package insert. 301-0590, Rev. B. October 2016. 2. Shelley CALDERON, et al; MG Factor V Leiden Working Group. Erika Med. 2001. 3:139- 48. 3. SAVITA Andre, et al. Nature. 2020. 581:434 4 43 4. Lesli ZEPEDA. Factor V Leiden Thrombophilia. 1998July 22 [Updated 2018 Mar 14]. Available from: https://www.ncbi.nlm.nih.gov/books/KRO9859/ 5. Joe PM, et al. N Engl J Med. 1995. 332:912-17. 6. Haroldo ROSE and Delfina WIN. J Thromb Haemost. 2009. 7 Suppl 1:301 4 . 7. Hadley SOlivia, et al. Erika Med. 2018. 20:1489 1 498 This test was performed at: [facility], One [facility] Yusuf, DEVONTE#[id number], Lorelei Tucker, Ph.D., [place], [address], [place] Current interpretive data was last revised 2022. Testing performed by: [facility], [address] [facility], [place]., [address] Blood 07/31/2024 1:36 PM CDT 07/31/2024 4:59 PM CDT Angel Horan MD LAB GENETIC TESTING Final Result Performing Organization Address City/State/[facility] Co de Phone Number JOHN MULLER (COMMER[place]) 1 [facility] Department [place] [address] [facility] * eGFR (07/31/2024 1:36 PM CDT) [...] ORDERABLES Final Result JOHN MULLER (JAYLENE) 1 [facility] [place] [address] * (ABNORMAL) Protime-INR (07/31/2024 1:36 PM CDT) PT 14.3(H) 9.7 - 13.0 sec [facility] ([place]) INR 1.32(H) 0.90 - 1.20 [facility] ([place]) Comment: Interpretive data Oral anticoagulant therapeutic ranges: Venous thromboembolism prophylaxis or treatment: 2.0-3.0 CARDIOLOGY Standard range: 2.0-3.0 High-intensity range: 2.5-3.5 Refer to indication-specific guidelines for appropriate target ranges for prosthetic heart valve replacement. Current interpretive data was last revised on 2019. Blood 07/31/2024 1:36 PM CDT 07/31/2024 1:43 PM CDT Narrative OMARIROSALBA MULLER (JAYLENE) - 07/31/2024 3:02 PM CDT Baseline prior to rivaroxaban initiation Lisa Uribe DO LAB BLOOD ORDERABLES Fi nal Result JOHN CANDELARIA) 1 [facility] [employer] [place] [address] * (ABNORMAL) CBC without differential (07/31/2024 1:36 PM CDT) WBC 10.34(H) 3.80 - 9.90 K/cumm Hgb 9.4(L) 11.9 - 15.5 g/dL [facility] ([place]) Hct 28.3(L) 35.6 - 45.5 % [facility] ([place]) Plt 446(H) 150 - 400 K/cumm [facility] ([place]) MPV 8.4(L) 9.1 - 12.3 fL [facility] ([place]) RBC 3.27(L) 3.90 - 5.20 M/cumm [facility] ([place]) MCV 86.5 81.3 - 96.4 fL [facility] ([place]) MCH 28.7 27.1 - 33.3 pg JOHN MULLER (JAYLENE) MCHC 33.2 32.3 - 35.7 g/dL [facility] ([place]AY[place]E) RDW CV 12.8 11.1 - 14.9 % JOHN MULLER (JAYLENE) RDW SD 40.1 35.7 - 48.1 fL JOHN MULLER (JAYLENE) NRBC abs 0.00 0.00 - 0.01 K/cumm [facility] ([place]AYLENE) Blood 07/31/2024 1:36 PM CDT 07/31/2024 1:43 PM CDT Narrative [facility]ROSALBA MULLER (JAYLENE) - 07/31/2024 1:57 PM CDT Baseline prior to rivaroxaban initiation Lisa Uribe DO LAB BLOOD ORDERABLES Fi nal Result [facility]ROS[facility]BA [facility] ([place]) 1 [facility] [employer] [place] [address] * (ABNORMAL) Magnesium (07/31/2024 1:36 PM CDT) Magnesium 5.0(C) 1.4 - 2.5 mg/dL Comment:Critical Result call ed by [email or web address] at 2024-07-31 17:08:05. Result Read Back by Darcie Veloz RN L&D Blood 07/31/2024 1:36 PM CDT 07/31/2024 4:29 PM CDT us Angel Horan MD LAB BLOOD ORDERABLES Final Result [facility] ([place]ER[place]) 1 [facility] [employer] [place] [address] * (ABNORMAL) Hepatic function panel (07/31/2024 1:36 PM CDT) Bilirubin, total 0.3 0.1 - 1.2 mg/dL Bilirubin, direct 0.1 0.1 - 0.3 mg/dL [facility] ([place]) Protein, pl 7.0 6.5 - 8.5 g/dL [facility] ([place]) Albumin 3.6 3.5 - 5.0 g/dL [facility] ([place]) Alk phos 170(H) 40 - 130 Units/L [facility] ([place]) ALT 16 7 - 45 Units/L [facility] ([place]) AST 21 10 - 45 Units/L [facility] ([place]E) Blood 07/31/2024 1:36 PM CDT 07/31/2024 1:43 PM CDT Narrative [facility] ([place]) - 07/31/2024 2:27 PM CDT Baseline prior to rivaroxaban initiation Lisa Uribe DO LAB BLOOD ORDERABLES Fi nal Result [facility] (JAYLENE) 1 [facility] Department [place] [address] * (ABNORMAL) Basic metabolic panel (07/31/2024 1:36 PM CDT) Sodium 139 135 - 145 mmol/L Potassium, pl 3.4 3.3 - 4.9 mmol/L [facility] ([place]) Chloride 97 97 - 110 mmol/L [facility] ([place]) CO2 26 22 - 32 mmol/L [facility] ([place]AY[place]E) Anion gap 16(H) 2 - 15 mmol/L [facility] ([place]) BUN 8 6 - 25 mg/dL [facility] ([place]) Creatinine 0.79 0.60 - 1.10 mg/dL [facility] ([place]) Glucose 113 70 - 199 mg/dL [facility] ([place]E) Comment: Interpretive Data Fasting glucose [...] Calcium 8.1(L) 8.5 - 10.3 mg/dL JOHN RENZO (JAYLENE) Blood 07/31/2024 1:36 PM CDT 07/31/2024 1:43 PM CDT us Angel Horan MD LAB BLOOD ORDERABLES Final Result JOHN RENZO (JAYLENE) 1 [facility] Department [place] [address] * NE CRITICAL CARE ILL/INJURED PATIENT INIT 30-74 MIN [...] Jez Long M.D. AG: GUANAKO Report ID: [id number] Reading Location: [id number] Procedure Note Jez Long MD - 07/30/2024 [...] Jez Long M.D. AG: GUANAKO Report ID: [id number] Reading Location: [id number] Leona Petit MD IMG CT PROCEDURES Final Re sult * ECG 12 lead (07/30/2024 3:38 PM CDT) 07/30/2024 3:38 PM CDT Narrative [facility] - 07/30/2024 3:50 PM CDT Vent Rate: 72 bpm RR Interval: 833 msec NE Interval: 164 msec QRS Duration: 102 msec QT Interval: 363 msec QTC Interval: 386 msec P-R-T [place]: 62 - 39 - 30 degrees IMPRESSION: SINUS RHYTHM NORMAL ECG NO CHANGE FROM PREVIOUS TRACING NOTED Electronically Signed By: Juwan Chery MD Leona Petit MD ECG ORDERABLES Final Resu lt [facility] * XR Chest 1 Vw Portable [...] by Lakhwinder Shanks M.D. JR: Report ID: [id number] Reading Location: [id number] Procedure Note Lakhwinder Shanks MD - 07/30/2024 [...] by Lakhwinder Shanks M.D. JR: Report ID: [id number] Reading Location: [id number] us Leona Petit MD IMG XR PROCEDURES Final Re sult * NE CRITICAL CARE ILL/INJURED PATIENT INIT 30-74 MIN [...] S Final Result [facility] (JAYLENE) 1 [facility] Department [place] [address] * Protime-INR (07/30/2024 6:29 AM CDT) PT [...] AM CDT 07/30/2024 6:32 AM CDT Narrative [facility] ([place]E) - 07/30/2024 6:42 AM CDT Baseline prior to rivaroxaban initiation us Killian Paul MD LAB BLOOD ORDERABLE S Final Result [facility] ([place]AYLENE) 1 [facility] Department [place] [address] * (ABNORMAL) Urinalysis reflex to microscopic and [...] tendency for uric acid stone formation. Source: [facility] [employer] Current Interpretive Data was last revised on [...] 5:54 AM CDT 07/30/2024 5:56 AM CDT us Kelly Oviedo MD LAB MICROBIOLOGY - GENERAL ORDERABLES Final Result Performing Organization Address [facility] Co de Phone Number JOHN [facility] (JAYLENE) 1 [facility] Department [place] [address] * (ABNORMAL) Urinalysis, microscopic only (07/30/2024 5:54 AM CDT) WBC, ur 0-5 0 - 5 /HPF RBC, ur 0-2 0 - 2 /HPF [facility] (JAYLENE) Epithelial cells, squamous, ur 1-5 0 - 5 /HPF [facility] (JAYLENE) Bacteria, ur 2+(A) [facility] (AJYLENE) Mucous, ur Present(A) CERNER A ([place]) Culture Reflex Comment Reflex conditions for urine culture (WBC >10) not met. JOHN [facility] (JAYLENE) Urine 07/30/2024 5:54 AM CDT 07/30/2024 5:56 AM CDT us Kelly Oviedo MD LAB URINE ORDERABLE S Final Result Performing Organization Address [facility] Co de Phone Number JOHN [facility] ([place]) 1 [facility] Department [place] [address] * CT Chest PE (CTA) W Contrast [...] Nick Patton M.D. RB: SHONDA Report ID: [id number] Reading Location: [place] [address] Procedure Note Nick Patton MD - 07/30/2024 [...] Nick Patton M.D. RB: SHONDA Report ID: [id number] Reading Location: [id number] Kelly Oviedo MD IMG CT PROCEDURES F [...] Nick Patton M.D. RB: RB Report ID: [id number] Reading Location: [id number] Procedure Note Nick Patton MD - 07/30/2024 [...] Nick Patton M.D. RB: RB Report ID: [id number] Reading Location: [id number] Kelly Oviedo MD IMG XR PROCEDURES F [...] BLOOD ORDERABLE S Final Result [facility] [place] 1 [facility] Department of Laboratories [place] [id number] * eGFR (07/30/2024 4:40 AM CDT) eGFR [...] BLOOD ORDERABLE S Final Result JOHN [facility] ([place]) 1 [facility] Department [place] [address] * Differential, auto (07/30/2024 4:40 AM CDT) Neutrophil abs 5.46 1.50 - 6.50 K/cumm Imm gran abs 0.06 0.00 - 0.10 K/cumm [facility] ([place]AYLENE) Lymphocyte abs 2.24 0.80 - 3.30 K/cumm [facility] ([place]) Monocyte abs 0.66 0.20 - 0.80 K/cumm [facility] (JAYLENE) Eosinophil abs 0.20 0.00 - 0.50 K/cumm [facility] ([place]) Basophil abs 0.05 0.00 - 0.10 K/cumm [...] 2017. Basophil pct 0.6 % [facility] (JAYLENE) Comment: Interpretive Data Percent cell count reference ranges are not reported, since discordance with absolute values may lead to misinterpretation of CBC data. Current Interpretive Data was last revised on 2017. Blood 07/30/2024 4:40 AM CDT 07/30/2024 4:57 AM CDT us Kelly Oviedo MD LAB BLOOD ORDERABLE S Final Result JOHN [facility] ([place]) 1 [facility] Department [place] [address] * (ABNORMAL) Pro B-type natriuretic peptide (07/30/2024 [...] S Final Result [facility] (JAYLENE) 1 [facility] Department [place] [address] * (ABNORMAL) CBC with auto differential (07/30/2024 [...] BLOOD ORDERABLE S Final Result JOHN [facility] ([place]) 1 [facility] [employer] [place] [address] * Antibody identification (07/30/2024 4:40 AM CDT) Antibody Identification Interpretation Passive Anti-D Blood 07/30/2024 4:40 AM CDT 07/30/2024 4:57 AM CDT Kelly Oviedo MD LAB BLOOD BANK TEST ORDERABLES Final Result Performing Organization Address City/[facility] Co de Phone Number JOHN [facility] ([place]) 1 [facility] [employer] [place] [address] * ABO/Rh (07/30/2024 4:40 AM CDT) ABO/Rh O Negative Blood 07/30/2024 4:40 AM CDT 07/30/2024 4:57 AM CDT Narrative JOHN [facility] (JAYLENE) - 07/30/2024 9:53 AM CDT Has the patient had Daratumumab or Isatuximab in the past 6 months?->Unknown us Kelly Oviedo MD LAB BLOOD BANK TEST ORDERABLES Final Result Performing Organization Address [facility] Co de Phone Number JOHN [facility] ([place]) 1 [facility] [employer] [place] [address] * (ABNORMAL) Antibody screen (07/30/2024 4:40 AM CDT) Steph, indirect, Gel Interpretation Positive( A) Blood 07/30/2024 4:40 AM CDT 07/30/2024 4:57 AM CDT Narrative JOHN [facility] (JAYLENE) - 07/30/2024 9:53 AM CDT Has the patient had Daratumumab or Isatuximab in the past 6 months?->Unknown Kelly Oviedo MD LAB BLOOD BANK TEST ORDERABLES Final Result [facility] ([place]) 1 [facility] [place] [address] * Magnesium (07/30/2024 4:40 AM CDT) Magnesium 1.8 1.4 - 2.5 mg/dL Blood 07/30/2024 4:40 AM CDT 07/30/2024 4:57 AM CDT Kelly Oviedo MD LAB BLOOD ORDERABLE S Final Result Performing Organization Address City/[facility]/ZIP Co de Phone Number JOHN [facility] ([place]) 1 [facility] [place] [address] * (ABNORMAL) Comprehensive metabolic panel (07/30/2024 4:40 AM CDT) Sodium 139 135 - 145 mmol/L Potassium, pl 3.8 3.3 - 4.9 mmol/L [facility] (JYALENE) Chloride 103 97 - 110 mmol/L [facility] (JAYLENE) CO2 24 22 - 32 mmol/L [facility] (JAYLENE) Anion gap 12 2 - 15 mmol/L [facility] (JAYLENE) BUN 12 6 - 25 mg/dL [facility] (JAYLENE) Creatinine 0.79 0.60 - 1.10 mg/dL [facility] (JAYLENE) Glucose 95 70 - 199 mg/dL [facility] (JAYLENE) Comment: Interpretive Data Fasting glucose [...] ORDERABLE S Final Result Performing Organization Address City/[facility]/ZIP Co de Phone Number JOHN [facility] (JAYLENE) 1 [facility] [employer] [place] [address] * (ABNORMAL) Uric acid (07/30/2024 4:39 AM CDT) Uric acid 7.6(H) 2.5 - 7.0 mg/dL Blood 07/30/2024 4:39 AM CDT 07/30/2024 6:10 AM CDT us Killian Paul MD LAB BLOOD ORDERABLE S Final Result [facility] (JAYLENE) 1 [facility] [employer] [place] [address] * (ABNORMAL) Lactate dehydrogenase (LD) (07/30/2024 4:39 AM CDT) Lactate dehydrogenase (LDH) 252(H) 100 - 250 Units/L Blood 07/30/2024 4:39 AM CDT 07/30/2024 6:10 AM CDT us Killian Paul MD LAB BLOOD ORDERABLE S Final Result Performing Organization Address City/[facility]/ZIP Co de Phone Number JOHN [facility] (JAYLENE) 1 [facility] [employer] [place] [address] * ECG 12 lead (07/30/2024 4:21 AM CDT) 07/30/2024 4:21 AM CDT Narrative [facility] - 07/30/2024 7:14 AM CDT Vent Rate: 70 bpm RR Interval: 849 msec NE Interval: 154 msec QRS Duration: 90 msec QT Interval: 358 msec QTC Interval: 379 msec P-R-T [place]: 50 - 46 - 34 degrees IMPRESSION: SINUS RHYTHM NORMAL ECG Compared to prior EKG, heart rate is now slower Electronically Signed By: Dr Nick Bonilla us Kelly Oviedo MD ECG ORDERABLES Fin al Result Performing Organization Address [facility] Co de Phone Number [facility] [employer] [facility] * Rh Immune Globulin Eval (07/25/2024 [...] ORDERA BLES Final Result Performing Organization Address City/[facility]/ZIP Co de Phone Number JOHN [facility] (JAYLENE) 1 [facility] [employer] [place] [address] * erythrocyte screen (07/25/2024 6:53 AM CDT) Screen Interpretation Negative Comment:Testing performed by : [facility], 1 [facility], [place]., [address] Blood 07/25/2024 6:53 AM CDT 07/25/2024 10:34 AM CDT Angel Horan MD LAB BLOOD ORDERABLES Final Result [facility] (JAYLENE) 1 [facility] Department [place] [address] * (ABNORMAL) CBC without differential (07/25/2024 6:53 [...] ORDERABLES Final Result [facility] (JAYLENE) 1 [facility] Department [place] [address] * Surgical pathology (07/24/2024 9:44 AM CDT) Tissue (Fallopian tube, sterilization) 07/24/2024 9:03 AM CDT Tissue specimen (specimen) (Fallopian tube, sterilization) 07/24/2024 9:07 AM CDT Narrative PATHOLOGY [facility] ([place]) - 08/05/2024 3:14 PM CDT EPIC results best viewed via link to PDF [facility] Department of Pathology [address] [place] [id number] Note to Patients: This report may contain [...] Final Report Patient Name: GAYLA MULTANI Address: [address] [place] [id number] Gender: F : 1990 (Age: 33) Service: Obstetrics Location: [facility] [employer] SAL[employer] Hospital #: [id number] Patient Type: [facility] Taken: 07/24/2024 Received: 08/04/2024 Accessioned: 08/04/2024 [...] determined by the Surgical Pathology Department at as part of an ongoing quality assurance consultant program and in compliance with federally mandated [...] characteristics determined by the Surgical Pathology Department [facility]. It has not been cleared or approved by the U. S. Food and Drug Administration. Note for decalcified specimens: This assay has not been validated on decalcified tissues. Results should be interpreted with caution given the possibility of false negativity on decalcified specimens us Angel Horan MD LAB PATHOLOGY ORDERABLES F inal Result PATHOLOGY [facility] ([place]) 1 [place] [address] * Blood Gas, Cord Venous (07/24/2024 8:47 [...] BLOOD ORDERABLES Final Result Performing Organization Address [facility] Co de Phone Number JOHN [facility] (JAYLENE) 1 [facility] [employer] [place] [address] * Blood Gas, Cord Arterial (07/24/2024 8:47 [...] BLOOD ORDERABLES Final Result Performing Organization Address [facility]/ZIP Co de Phone Number OMAR[facility]OSALBA [facility] (JAYLENE) 1 [facility] [employer] [place] [address] * Spinal Block (07/24/2024 8:10 AM CDT) Narrative Jefry Valentin CRNA - 07/24/2024 8:10 AM CDT Jefry Valentin CRNA 07/24/2024 8:10 AM Spinal Block Patient location: L&D Reason for block: primary anesthetic Staff: Supervising provider: Chris Fernandez MD Placed by: MEDICAL OFFICE WORKER:Jefry Valentin CRNA Procedure prep: Preprocedure checklist: patient [...] ORDERABLES Final Result [facility] (JAYLENE) 1 [facility] Department [place] [address] * (ABNORMAL) CBC with auto differential (07/24/2024 5:54 AM CDT) WBC 11.98(H) 3.80 - 9.90 K/cumm Hgb 10.5(L) 11.9 - 15.5 g/dL [facility] (JAYLENE) Hct 30.8(L) 35.6 - 45.5 [...] CV 13.1 11.1 - 14.9 % [facility] (JAYLENE) RDW SD 40.7 35.7 - 48.1 fL JOHN [facility] (JAYLENE) NRBC abs 0.00 0.00 - 0.01 K/cumm [facility] (JAYLENE) Blood 07/24/2024 5:54 AM CDT 07/24/2024 6:03 AM CDT Angel Horan MD LAB BLOOD ORDERABLES Final Result Performing Organization Address City/[facility]/ZIP Co de Phone Number JOHN [facility] ([place]) 1 [facility] of [employer] [place] [address] * ABO/Rh (07/24/2024 5:54 AM CDT) ABO/Rh O Negative Blood 07/24/2024 5:54 AM CDT 07/24/2024 6:03 AM CDT Narrative [facility]ROSALBA [facility]ER ([place]) - 07/24/2024 6:53 AM CDT Has the patient had Daratumumab or Isatuximab in the past 6 months?->Unknown Angel Horan MD LAB BLOOD BANK TEST ORDERA BLES Final Result JOHN [facility] ([place]) 1 [facility] [employer] [place] [address] * RPR Blood (07/24/2024 5:54 AM CDT) RPR Nonreactive Nonreactive Comment:Testing performed by : , [address] [place] [address], [place]., [address] Blood 07/24/2024 5:54 AM CDT 07/24/2024 9:38 AM CDT Angel Horan MD LAB MICROBIOLOGY - GENERAL ORDERABLES Final Result JOHN [facility] ([place]) [address] [place] [address] [employer] [place] [address] * Antibody screen (07/24/2024 5:54 AM CDT) Steph, indirect, Gel Interpretation Negative ABSC Blood 07/24/2024 5:54 AM CDT 07/24/2024 6:03 AM CDT Narrative OMARIROSALBA [facility] ([place]) - 07/24/2024 6:53 AM CDT Has the patient had Daratumumab or Isatuximab in the past 6 months?->Unknown Angel Horan MD LAB BLOOD BANK TEST ORDERA BLES Final Result Performing Organization Address City/[facility]/ZIP Co de Phone Number JOHN [facility]ER ([place]) [address] [place] [address] of [employer] [place] [address] * POCT urinalysis dipstick (07/20/2024 1:07 PM CDT) Glucose, ur, POC Negative Negative Ketones, ur, POC Negative Negative Protein, ur, POC Negative Negative Lot Number [id number] Urine 07/20/2024 1:07 PM CDT Angel Horan MD POINT OF CARE TEST ORDERAB LES Final Result * POCT urinalysis dipstick (07/13/2024 1:20 PM CDT) Glucose, ur, POC Negative Negative Ketones, ur, POC Negative Negative Protein, ur, POC Negative Negative Lot Number [id number] Urine 07/13/2024 1:20 PM CDT Angel Horan MD POINT OF CARE TEST ORDERAB LES Final Result * Pap and HPV, reflex to HPV Genotypes (01/17/2024 4:25 PM FORGE UTILITY WORKER) Pathologist [facility] CLINICAL INFORMATION: [facility] Comment:None given LMP [facility] Comment:A Previous Pap [facility] Comment:NONE GIVEN Prev. Bx [facility] Comment:NONE GIVEN SOURCE: [facility] Comment:Cervix, Endocervix Pap, specimen adequacy [facility] Comment: Satisfactory for evaluation. Endocervical/transformation zone component present. Age and/or menstrual status not provided HPV interp [facility] Comment: Cytology Results: Negative for intraepithelial lesion or malignancy. COMMENTS [facility] Comment: This Pap test has been evaluated with computer assisted technology. Wage Conciliator [facility] Comment: LM, CT(ASCP) CT screening location: [place] [address] [address] CARLA [place] [address] Comment [facility] Comment: EXPLANATORY NOTE: The Pap is a [...] High Risk E6/E7 Not Detected NOT DETECTED [facility] Comment: Not Detected High Risk HPV types (16,18,31,33,35,39,45,51,52, 56,58,59,66,68) were not detected. Other HPV types which cause anogenital lesions may be present. The significance of the other types of HPV in malignant processes has not been established. Methodology: Real Time PCR Thin prep-Endocervica l 01/17/2024 4:25 PM FORGE UTILITY WORKER 01/20/2024 6:28 AM FORGE UTILITY WORKER us Angel Horan MD LAB CYTOLOGY ORDERABLES Fi nal Result [facility] [address] [address] [place] [id number] [place] [address] [place] [address] * Hepatitis C antibody Blood (01/17/2024 3:07 PM FORGE UTILITY WORKER) Hep C Ab Nonreactive Nonreactive Comment: Interpretive [...] last revised on 2019. Testing performed by: , [address] [place] [address]., [address] Blood 01/17/2024 3:07 PM FORGE UTILITY WORKER 01/17/2024 7:03 PM FORGE UTILITY WORKER Angel Horan MD LAB MICROBIOLOGY - GENERAL ORDERABLES Final Result [facility] ([place]) 1 [facility] Department of Laboratories [place], [place] [id number] from Last 3 Months or Most Recently Relevant to Health Maintenance Insurance [facility] [id number] [facility] OFFICE COMM CARE [facility] [id number] Advance Directives For more information, please contact: [phone] * Full Code (Latest Code Status on File) Date Activated Date Inactivated Comments 07/30/2024 5:32 PM 08/01/2024 5:23 PM * Full Code Date Activated Date Inactivated Comments 07/24/2024 9:58 AM 07/26/2024 6:20 PM * Full Code Date Activated Date Inactivated Comments 07/24/2024 5:34 AM 07/24/2024 9:58 AM Full CPR in case of cardiopulmonary arrest Care Teams Plant Attendant Or Assistant Operator Relationship Specialty Start Date End Date Unknown, Notinfile PCP - General 10/10/22 Bertha Barker MD [address] [facility] [address] [place] [address] Consulting Physician Cardiology 04/09/24 Amy Chiang Primary Doctor Of Medicine 04/09/24 Angel Hroan MD 4 [facility] [address] [place] [address] Structural Architect Obstetrics and Gynecology 07/26/24
--- NOTE | 2024-10-05 20:36 | ED_ITS ---
HPI - General Adult General Chief complaint: Anxiety Stated complaint: anxiety Time Seen by Provider: 10/05/24 20:36 History of Present Illness HPI narrative: Pt states she feels very anxious and just doesn't feel right for last two hours. Pt says she has gallstones but does not have surgery scheduled yet. Pt has no abdominal pain right now. Pt says that here liver enzymes were elevated at one time but then came down. Pt is two months post . Pt has quit taking medicine for BP because it made her palms itch and has quit taking buspar because it made her feel bad. Pt also complain sof intermittent tingling in forearm and 5th finger on left hand. Related Data Home Medications ?Medication ?Instructions ?Recorded ?Confirmed ?Last Taken ?Type rivaroxaban 20 mg tablet (Xarelto) 20 mg PO DAILY 10/05/24 10/05/24 10/05/24 History Allergies Allergy/AdvReac Type Severity Reaction Status Date / Time duloxetine (From Cymbalta) Allergy Mild Dizziness Verified 10/05/24 21:04 latex Allergy Unknown Hives Verified 10/05/24 21:04 Review of Systems 2 Review of Systems: All systems reviewed & are unremarkable except as noted in HPI and below PMFSH Past Medical History Medical History (Updated 10/05/24 @ 21:28 by Jelly Michelle III, DO) Depression Encounter for gynecological examination Nasal congestion Surgical History Surgical History Hx of appendectomy History of delivery Family History Family History Father Diabetes mellitus Social History Social History Smoking status: Former smoker Alcohol intake: current Alcohol use details: occasional Substance use: former Substance use type: marijuana Lack of Transportation: No Lack of Food: Never True Current Housing: I Have Housing Concerned About Future Housing: No Difficulty Paying Gas/Electric Bills: No Difficulty Paying for Meds: No Currently Unemployed: No Education: Associate Degree Difficulty w/ Childcare or Family Care: No Living arrangements: with family Occupation/Education: occupation Gender identity (if verbalized by the patient): Female Sexual Orientation (if Verbalized by the Patient): Straight or Heterosexual Exam 2 Const: General: healthy appearing and no acute distress Nutritional Appearance: well nourished Orientation/consciousness: patient oriented x3 Limitations: no limitations Resp: Effort & Inspection: normal respiratory effort Auscultation: clear to auscultation bilaterally Cardio: Rate: regular rate Rhythm: regular rhythm GI: GI Palp: Yes Soft to palpation and Yes Tenderness to palpation present (GI) Auscultation: normal bowel sounds Skin: General skin exam: normal color Rashes: no rashes Wounds: no wounds Neuro: General: patient oriented x3, moves all extremities, no meningeal signs, no focal motor deficits and CN's II-XI intact bilaterally Speech: n ormal speech Extrem: General: normal to inspection and no clubbing, cyanosis or edema Psych: Mental Status: mental status grossly normal Affect: Anxious affect present Attitude: cooperative Course Vital Signs Vital signs: Vital Signs Temperature 98.7 F 10/05/24 20:43 Pulse Rate 68 10/05/24 20:43 Respiratory Rate 10/05/24 20:43 Blood Pressure 135/95 H 10/05/24 20:43 Pulse Oximetry 99 10/05/24 20:43 Oxygen Delivery Room Air 10/05/24 20:43 Temperature 98.7 F 10/05/24 20:43 Pulse Rate 68 10/05/24 20:43 Respiratory Rate 10/05/24 20:43 Blood Pressure 135/95 H 10/05/24 20:43 Pulse Oximetry 99 10/05/24 20:43 Oxygen Delivery Room Air 10/05/24 20:43 Medical Decision Making MDM Narrative Medical decision making narrative: Pt has ulnar nerve type symptoms in left arm and is quite anxious. will give a dose of ativan and get some labs. lft's trending down other labs ok. reassured pt. home on a few ativan. Vital Signs Vital Signs: Vital Signs Temperature 98.7 F 10/05/24 20:43 Pulse Rate 68 10/05/24 20:43 Respiratory Rate 10/05/24 20:43 Blood Pressure 135/95 H 10/05/24 20:43 Pulse Oximetry 99 10/05/24 20:43 Oxygen Delivery Room Air 10/05/24 20:43 Temperature 98.7 F 10/05/24 20:43 Pulse Rate 68 10/05/24 20:43 Respiratory Rate 10/05/24 20:43 Blood Pressure 135/95 H 10/05/24 20:43 Pulse Oximetry 99 10/05/24 20:43 Oxygen Delivery Room Air 10/05/24 20:43 Lab Data 10/05/24 20:58 10/05/24 20:58 Labs: Lab Results 10/05/24 Range/Units 20:58 WBC 7.9 (4.8-10.8) K/mm3 RBC 4.10 L (4.20-5.40) M/mm3 Hgb 11.1 L (12.0-15.0) g/dL Hct 34.2 L (35.0-49.0) % MCV 83.4 (78.0-102.0) fL MCH 27.1 (27.0-31.0) pg MCHC 32.5 (32-36) g/dL RDW 13.1 (11.6-14.4) % Plt Count 456 H (150-420) K/mm3 MPV 8.1 L (9.2-11.8) fl Immature Gran % (Auto) 0.3 H (0.0-0.0) % Neut % (Auto) 61.9 (50.0-70.0) % Lymph % (Auto) 29.5 (18.0-42.0) % [place] % (Auto) 6.1 (2.0-11.0) % Eos % (Auto) 1.6 (1.0-6.0) % Baso % (Auto) 0.6 (0.0-1.0) % Lymph # (Auto) 2.33 (1.10-4.50) K/mm3 [place] # (Auto) 0.48 (0.10-0.90) K/mm3 Eos # (Auto) 0.13 (0.02-0.50) K/mm3 Baso # (Auto) 0.05 (0.00-0.10) K/mm3 Abs Immat Gran (auto) 0.02 H (0.00-0.00) K/mm3 Absolute Neuts (auto) 4.89 (1.70-7.20) K/mm3 Absolute Nucleated RBC 0.00 (0.00-0.00) K/mm3 Nucleated RBC % 0.0 (0-0.0) % Sodium 139 (137-145) mmol/L Potassium 3.7 (3.4-5.0) mmol/L Chloride 104 (98-107) mmol/L Carbon Dioxide 27 (22-30) mmol/L Anion Gap 8 (4-12) mmol/L BUN 14 (7-17) mg/dL Creatinine 0.85 (0.7-1.0) mg/dL Estim Creat Clear Calc Not Reportable Estimated GFR > 60 (59 - ) Glucose 92 (65-110) mg/dL Calculated Osmolality 288 (285-295) mOsm/kg Calcium 9.3 (8.4-10.2) mg/dL Total Bilirubin 0.5 (0.2-1.3) mg/dL AST 56 H (14-36) U/L ALT 63 H (6-35) U/L Alkaline Phosphatase 169 H (38-126) U/L Total Protein 7.5 (6.3-8.2) g/dL Albumin 4.4 (3.5-5.1) g/dL Discharge Plan Discharge Clinical Impression: Anxiety, Ulnar nerve abnormality Patient Disposition: Home Condition: Stable Instructions: Antibiotic Form, Paresthesia (ED), Anxiety (ED) Patient Language: Luxembourgish Prescriptions: New lorazepam [Ativan] 0.5 mg tablet 0.5 mg PO TID PRN (Reason: anxiety) Qty: 7 0RF No Action Xarelto 20 mg tablet 20 mg PO DAILY Rx Instructions: must administer with evening meal Follow-up/Referrals: UNKNOWN,DOCTOR [Non-Staff] -
[2024-10-05 20:43] VITALS: BP 135/95; PULSE 68; RESP 20; TEMP 37.1; O2SAT 99
--- OUTSIDE RECORDS SUMMARY | 2024-10-05 20:50 | XMS_ITS | Continuity of Care Document ---
Author Name [facility] Organization [facility] Care Team Providers Care Slate Splitting Supervisor Name Role Phone [facility] Unavailable Unavailable Problems Combined list of problems from 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 It does not include entries that were removed or entered in error. Problem Status Onset Date Problem Type Date of Resolution Comments Source Anxiety Active Condition [facility] Hypertension Active Condition [facility] Irregular intermenstrual bleeding Active Condition [facility] Left side sciatica Active Condition [facility] Low back pain Active Condition [facility] Obesity Active Condition [facility] PCOS- polycystic ovary syndrome Active Condition [facility] Pulmonary embolism Active Condition J 2024 Entered By: POLINA MONET Comment: 07/30/[address] [facility] Hip pain Inactive Condition 02/06/[address] [facility] EXAM, FORMAL OCCUPATIONAL HEALTH PROGRAM INCLUDING HEARING CONSERVATION PROGRAM, ESTABLISH BASELINE PRIOR TO OCCUPATIONAL WORKPLACE EXPOSURE Active Condition [facility] visit: ears/hearing exam for hearing conservation, treatment Inactive Condition [facility] Patient Education - Injury Prevention Active Condition [facility] ASTIGMATISM - REGULAR Active Condition [facility] Inquiry And Counseling: Contraceptive Practices Inactive Condition [facility] Vaccines Prophylactic Need Against Viral Diseases Inactive Condition [facility] NICOTINE DEPENDENCE Active Condition [facility] Contraceptives Active Condition [facility] ASSESSMENT OF PATIENT CONDITION WORK-RELATED Active Condition [facility] PLANTAR FASCIITIS Active Condition [facility] EYESTRAIN Inactive Condition [facility] Need For Vaccination Human Papilloma Virus Inactive Condition [facility] visit for: screening exam Active Condition [facility] VAGINITIS Inactive Condition [facility] Other Physical Therapy Active Condition [facility] TENDONITIS POSTERIOR TIBIAL RIGHT Inactive Condition [facility] SINUSITIS Active Condition [facility] SINUSITIS ACUTE Inactive Condition [facility] UPPER RESPIRATORY INFECTION Inactive Condition [facility] ACUTE TONSILLITIS Inactive Condition [facility] DIETARY CALCIUM DEFICIENCY Active Condition [facility] Gynecologic Services Prescription Of Contraceptive Agents Inactive Condition [facility] PREMENSTRUAL SYNDROMES Active Condition [facility] SUPERFICIAL INJURY - BLISTER OF ANKLE Inactive Condition [facility] visit for: screening exam for malignant neoplasm cervix Active Condition [facility] ROUTINE GYNECOLOGICAL EXAM WITH CERVICAL PAP SMEAR Inactive Condition [facility] Preventive Medicine New Patient Evaluation Adult 18-39 Active Condition [facility] Patient Education Active Condition [facility]nec[facility] Services Contraceptive General Counseling Active Condition [facility] Dietary Counseling Pertaining To Osteoporosis Active Condition [facility] Anticipatory Guidance: Unsafe Sexual Practices Inactive Condition [facility] visit for: services physical Active Condition [facility] visit for: ears / hearing exam Active Condition [facility] Diagnosis: ICD-10-CM F41.9 Anxiety disorder, unspecified Active Diagnosis [facility] Diagnosis: ICD-10-CM R21 Rash and other nonspecific skin eruption Active Diagnosis [facility] Diagnosis: ICD-10-CM I10 Essential (primary) hypertension Active Diagnosis [facility] Diagnosis: ICD-10-CM Z71.89 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ed counseling Active Diagnosis [facility] Diagnosis: ICD-10-CM Z51.81 Encounter for therapeutic drug level monitoring Active Diagnosis [facility] Diagnosis: ICD-10-CM I26.99 Other pulmonary embolism without acute cor pulmonale Active Diagnosis [facility] Diagnosis: ICD-10-CM Z86.711 Personal history of pulmonary embolism Active Diagnosis [facility] Diagnosis: ICD-10-CM Z39.2 Encounter for routine follow-up Active Diagnosis [facility] Diagnosis: ICD-10-CM E88.819 Insulin resistance, unspecified Active Diagnosis [facility] Diagnosis: ICD-10-CM M54.50 Low back pain, unspecified Active Diagnosis [facility] Diagnosis: ICD-10-CM Z33.1 state, incidental Active Diagnosis [facility] Diagnosis: ICD-10-CM 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m of uncertain behavior of skin Active Diagnosis [facility] Diagnosis: ICD-10-CM 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tic ovarian syndrome Active Diagnosis [facility] Diagnosis: ICD-10-CM E66.9 Obesity, unspecified Active Diagnosis [facility] Medications Combined list of outpatient medications from 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Medications provided include 1) outpatient medications from the last 15 months, and 2) patient-reported medications. Medication Details Route Status Patient Instructions Prescription Expires Prescription Number Last Dispense Date Ordering Provider Order Date Order Qty Source ASPIRIN 81MG TAB,EC TAKE ONE TABLET BY MOUTH ONCE A DAY TAKE WITH FOOD. ORAL 07/21/2024 [id number] GILBERT MARKS M 2024 120 [facility] ASPIRIN 81MG TAB,EC TAKE ONE TABLET BY MOUTH ONCE A DAY ORAL ACTIVE DEPBREEZYS UZANNE 2024 [facility] BUSPIRONE HCL 10MG TAB TAKE ONE TABLET BY MOUTH TWICE A DAY DO NOT TAKE WITH GRAPEFRU IT JUICE. ### ORAL ACTIVE 08/05/2025 [id number] 5 GILBERT MARKS M 2024 60 [facility] CHOLECALCIF GIULIANO 50MCG (2,000UNIT) TAB TAKE ONE TABLET BY MOUTH ONCE A DAY ORAL DISCONT INUED 03/24/2025 [id number] 5 GILBERT MARKS M 2024 100 [facility] DOCUSATE NA 100MG CAP TAKE ONE CAPSULE BY MOUTH TWICE DAILY NEEDED FOR CONSTIPA TION. HOLD FOR LOOSE STOOL/DI ARRHEA. ORAL ACTIVE 03/24/2025 [id number] 5 GILBERT MARKS M 2024 100 [facility] ENALAPRIL MALEATE 5MG TAB TAKE ONE TABLET BY MOUTH ONCE A DAY FOR HIGH BLOOD PRESSURE ORAL ACTIVE 09/19/2025 [id number] 5 CHANDU MONET 2024 90 [facility] FERROUS SO4 325MG TAB TAKE ONE TABLET BY MOUTH ONCE A DAY . TAKE WITH BREAKFAS T ORAL ACTIVE 03/24/2025 [id number] 5 GILBERT MARKS M 2024 100 [facility] FUROSEMIDE 20MG TAB TAKE ONE-HALF TABLET BY MOUTH ONCE A DAY NEEDED FOR FLUID RETENTIO N. CALL PRESCRIB ER OFFICE BEFORE USING ORAL 05/21/2024 [id number] 5 RUTHIE BEEBE 2024 10 [facility] N HYDROCORTIS ONE 2.5% CREAM,TOP APPLY TO AFFECTED AREA(S) TWICE A DAY FOR EXTERNAL USE ONLY. APPLY SPARINGL Y. TOPICA L DISCONT INUED 06/30/2025 [id number] 5 GILBERT MARKS M 2024 30 [facility] HYDROCORTIS ONE 2.5% CREAM,TOP APPLY LIGHTLY TO AFFECTED AREA(S) ONCE A DAY NEEDED FOR ITCHING FOR EXTERNAL USE ONLY. APPLY SPARINGL Y. TOPICA L DISCONT INUED 04/15/2025 [id number] 5 Shashank ALVARENGA B 2024 30 [facility] LIDOCAINE HCL 2% JELLY,UROJE T,10ML APPLY SPARINGL Y TO AFFECTED AREA(S) EVERY DAY NEEDED FOR TOPICAL ANESTHES IA FOR HEMORROI D PAIN TOPICA L 08/01/2024 [id number] 5 GILBERT MARKS M 2024 5 [facility] MULTIVITAMI NS W/MINERALS, CAP/TAB TAKE 1 TABLET BY MOUTH ONCE A DAY FOR NUTRITIO N/DIETAR Y SUPPLEME NTATION TAKE WITH FOOD ORAL ACTIVE 11/27/2024 [id number] 5 DEPAUHE,S UZANNE 2023 100 [facility] NIFEDIPINE (EQV-CC) 30MG TAB,SA TAKE ONE TABLET BY MOUTH ONCE A DAY PREFERAB LE TO TAKE ON EMPTY STOMACH. SWALLOW WHOLE; DO NOT CRUSH OR CHEW. AVOID GRAPEFRU IT JUICE. ORAL 08/29/2024 [id number] 5 SHEILA FUNEZ B 2024 30 [facility] NURSING CREAM,TOP W/LANOLIN APPLY LIGHTLY TO AFFECTED AREA(S) ONCE A DAY NEEDED FOR SKIN PROTECTI ON TOPICA L ACTIVE 04/29/2025 [id number] 5 DEPAULO,S UZANNE 2024 30 [facility] PROGESTERON E 200MG CAP INSERT ONE CAPSULE VAGINALL Y EVERY EVENING VAGINA L DISCONT INUED 03/24/2025 [id number] 5 GILBERT MARKS 2024 30 [facility] RIVAROXABAN 15MG TAB TAKE ONE TABLET BY MOUTH TWICE A DAY FOR 21 DAYS THEN USE 20 MG ONCE DAILY. TAKE WITH FOOD. USE THIS BOTTLE FIRST! ORAL DISCONT INUED 08/29/2024 [id number] 5 SHEILA FUNEZ 2024 42 [facility] RIVAROXABAN 20MG TAB TAKE ONE TABLET BY MOUTH ONCE A DAY FOR ANTICOAG ULATION TAKE WITH FOOD. ORAL ACTIVE 08/05/2025 [id number] 5 Shayan LOPEZ 2024 30 [facility] RIVAROXABAN 20MG TAB TAKE ONE TABLET BY MOUTH ONCE A DAY . TAKE WITH FOOD. START THIS DOSE AFTER COMPLETI NG THE 15MG TWICE DAILY PRESCRIP TION. USE THIS BOTTLE SECOND (AFTER 15MG) ORAL DISCONT INUED 08/29/2024 [id number] 5 SHEILA FUNEZ 2024 9 [facility] MARCO ANTONIO Dietz Allergies, Adverse Reactions, Alerts Combined list of allergies from 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 It does not include entries that were removed or entered in error. Substance Category Reaction Severity Reaction type Status Date Reported Comments Source DULOXETINE Propensity to adverse reactions to drug (finding) Nausea and vomiting, Diarrhea active 8 [facility] LATEX GLOVE Propensity to adverse reactions to drug (finding) Urticaria active [address] [facility] No Known Allergies Drug allergy (disorder) active 1 Krishna Waddell [facility] Immunizations Combined list of available immunizations from the 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 Immunization Series Date Given Administered By Site Reaction Lot Number CVX Code Drug Sausage Linker Status Comments Source INFLUENZA, SPLIT VIRUS, TRIVALENT, PF 1 2023 140 complet ed HISTORICA L INFORMATI ON - FROM OTHER REGISTRY, [facility] TDAP 2023 DENISE DELAROSA RE Don RIGHT DELTO ID [id number] 115 complet ed Completed Series, ADMINISTE RED AT [place], [facility] INFLUENZA, MDCK, QUADRIVALENT, PF 1 2022 171 complet ed HISTORICA L INFORMATI ON - FROM OTHER REGISTRY, [facility] INFLUENZA, UNSPECIFIED FORMULATION 2021 88 complet ed Completed Series, HISTORICA L INFORMATI ON - FROM PATIENT'S RECALL, [facility] COVID-19 (GERALD), VECTOR-NR, [id number], PF, 0.5 ML 1 2020 212 complet ed HISTORICA L INFORMATI ON - FROM OTHER REGISTRY, [facility] INFLUENZA, INJECTABLE, QUADRIVALENT, PRESERVATIVE FREE 2017 150 complet ed [facility] Influenza, seasonal, injectable 0 2015 [id number] 141 Se[employer] (SEQ) complet ed Influenza , seasonal, injectabl e DoD tuberculin skin test; purified protein derivative solution, intradermal 0 2014 Unknown, Provider [id number] Sanofi Pasteur ([facility]) complet ed tuberculi n skin test; purified protein derivativ e solution, intraderm al DoD Influenza, seasonal, injectable 1 2014 Unknown, Provider [id number] 1A 141 CS [employer] (CSL) complet ed Influenza , seasonal, injectabl e DoD tetanus toxoid, reduced diphtheria toxoid, and acellular pertu is vaccine, adsorbed 0 2014 Unknown, Provider [id number] Sanofi Pasteur ([facility]) complet ed tetanus toxoid, reduced diphtheri a [...] DoD influenza, live, intranasal, quadrivalent 0 2012 [id number] [employer] (MED) complet ed influenza , live, [...] poliovirus vaccine, inactivated 1 2010 Unknown, Provider [id number] Sanofi Pasteur ([facility]) complet ed polioviru s vaccine, inactivat ed DoD yellow fever vaccine 1 2010 Unknown, Provider [id number] [employer] ([employer]) complet ed yellow fever vaccine DoD typhoid Vi capsular polysaccharid e vaccine 1 2010 Unknown, Provider [id number] Sanofi Pasteur ([facility]) complet ed typhoid Vi capsular polysacch aride vaccine DoD measles, mumps and rubella virus vaccine 1 2010 Unknown, Provider [id number] Merck ([facility]D) complet ed measles, mumps and rubella virus vaccine DoD influenza virus vaccine, whole virus 1 2010 Unknown, Provider [id number] [facility] complet ed influenza virus vaccine, whole virus DoD meningococcal C conjugate vaccine 1 2010 Unknown, Provider [id number] Sanofi Pasteur ([facility]) complet ed meningoco [...] is vaccine, adsorbed 1 2010 Unknown, Provider [id number] 115 [employer] ([employer]) complet ed tetanus toxoid, reduced diphtheri a [...] Reference Range Date Interpretation Specimen Comments Source ALPHA-1 ANTITRYPS IN (STL-PB) ALPHA 1 ANTITRYPSIN [MASS/VOLUM E] IN SERUM OR PLASMA 159 mg/dL 84 - 200 09/29 Specimen Type: SERUM No comment entered. Ordering Provider: POLINA MONET Report Released Date/Time: Sep 28, 2024 11:53 AM Reporting Lab: [facility] 5 [facility] [address] Performing Lab: [facility] [address] [place] [phone] [facility] ANTI-NUCL EAR ANTIBODY (STL-PB) NUCLEAR AB [PRESENCE] IN SERUM NEGATIVE 09/29 Specimen Type: SERUM No comment entered. Ordering Provider: POLINA MONET Report Released Date/Time: Sep 28, 2024 11:53 AM Reporting Lab: [facility] 5 [facility] [address] Performing Lab: [facility] [address] [place] [phone] [facility] CERULOPLA SMIN (STL-PB) CERULOPLASM IN [MASS/VOLUM E] IN SERUM OR PLASMA 41 mg/dL 14 - 48 09/29 Specimen Type: SERUM Comment: Test Performed by Sharon Woodard, [facility], [address] [place], [place] Christian Hameed M.D., Ph.D., Director of Laboratorie s , [facility] [id number] Ordering Provider: POLINA MONET Report Released Date/Time: Sep 28, 2024 11:53 AM Reporting Lab: [facility] [address] [place] [phone] Performing Lab: [facility] [address] [facility] HEP B CORE AB TOTAL. (STL) HEPATITIS B VIRUS CORE AB [PRESENCE] IN SERUM OR PLASMA BY IMMUNOASSAY Nonreact horace 09/29 Specimen Type: SERUM No comment entered. Ordering Provider: POLINA MONET Report Released Date/Time: Sep 28, 2024 11:53 AM Reporting Lab: [address] [address] Performing Lab: [address] [address] [facility] HEP C Ab HCV Ab (STL) HEPATITIS C VIRUS AB [PRESENCE] IN SERUM Nonreact horace 09/29 Specimen Type: SERUM No comment entered. Ordering Provider: POLINA MONET Report Released Date/Time: Sep 28, 2024 11:53 AM Reporting Lab: [facility] [address] [place] [phone] Performing Lab: [facility] [address] [place] [phone] [facility] HEP HB S Ag (AUSRIA) (STL) HEPATITIS B VIRUS SURFACE AG [PRESENCE] IN SERUM OR PLASMA BY IMMUNOASSAY Nonreact horace 09/29 Specimen Type: SERUM No comment entered. Ordering Provider: POLINA MONET Report Released Date/Time: Sep 28, 2024 11:53 AM Reporting Lab: [facility] [address] [place] [phone] Performing Lab: [facility] [address] [facility] [address] [facility] HEPATITIS A IGG AB (STL) HEPATITIS A VIRUS IGG AB [PRESENCE] IN SERUM BY IMMUNOASSAY REACTIVE 09/29 Specimen Type: SERUM Comment: Clinical correlation suggested. Ordering Provider: POLINA MONET Report Released Date/Time: Sep 28, 2024 11:53 AM Reporting Lab: [facility] [address] [facility] [address] Performing Lab: [place] [address] [facility] [address] [place] [address] HEPATITIS B SURFACE AB PNL HEPATITIS B VIRUS SURFACE AB [PRESENCE] IN SERUM BY IMMUNOASSAY INDETERM INANTm[I U]/mL 09/29 Specimen Type: SERUM Comment: Clinical correlation suggested. Please submit new specimen. Clinical correlation suggested. Ordering Provider: POLINA MONET Report Released Date/Time: Sep 28, 2024 11:53 AM Reporting Lab: [place] [address] [facility] [address] Performing Lab: [address] [phone] [place] [address] HEPATITIS B SURFACE AB PNL HEPATITIS B VIRUS SURFACE AB [UNITS/VOLU ME] IN SERUM 8.41 m[IU]/mL 09/29 Specimen Type: SERUM Comment: Clinical correlation suggested. Please submit new specimen. Clinical correlation suggested. Ordering Provider: POLINA MONET Report Released Date/Time: Sep 28, 2024 11:53 AM Reporting Lab: [address] [address] Performing Lab: [address] [address] [facility] IGG (STL) IGG [MASS/VOLUM E] IN SERUM OR PLASMA 1012 mg/dL 540 - 1822 09/29 Specimen Type: SERUM No comment entered. Ordering Provider: POLINA MONET Report Released Date/Time: Sep 28, 2024 11:53 AM Reporting Lab: [facility] [address] [facility] [address] Performing Lab: [facility] [address] [facility] [address] [facility] IRON/TIBC PROFILE IRON BINDING CAPACITY [MASS/VOLUM E] IN SERUM OR PLASMA 446 ug/dL 250 - 450 09/29 Specimen Type: SERUM No comment entered. Ordering Provider: POLINA MONET Report Released Date/Time: Sep 28, 2024 11:53 AM Reporting Lab: [facility] [address] Performing Lab: [facility] [address] [facility] IRON/TIBC PROFILE TRANSFERRIN [MASS/VOLUM E] IN SERUM OR PLASMA 357 mg/dL 173 - 360 09/29 Specimen Type: SERUM No comment entered. Ordering Provider: POLINA MONET Report Released Date/Time: Sep 28, 2024 11:53 AM Reporting Lab: [facility] [address] Performing Lab: [facility] [address] [facility] IRON/TIBC PROFILE IRON SATURATION [MASS FRACTION] IN SERUM OR PLASMA 15 20 - 50 09/29 L Specimen Type: SERUM No comment entered. Ordering Provider: POLINA MONET Report Released Date/Time: Sep 28, 2024 11:53 AM Reporting Lab: [facility] [address] [facility] [address] Performing Lab: [facility] [address] [place] [phone] [facility] IRON/TIBC PROFILE IRON [MASS/VOLUM E] IN SERUM OR PLASMA 65 ug/dL 50 - 170 09/29 Specimen Type: SERUM No comment entered. Ordering Provider: POLINA MONET Report Released Date/Time: Sep 28, 2024 11:53 AM Reporting Lab: [facility] [address] [facility] [address] Performing Lab: [facility] [address] [facility] [address] [facility] Vital Signs Combined list of inpatient and outpatient Vital Signs from Department of [facility] and [facility] Affairs, ranging from 12 months to all on record, depending upon the facility. Vital Sign Value Date Comments Source SYSTOLIC BLOOD PRESSURE 112 09/18/2024 10:53:57 [facility] DIASTOLIC BLOOD PRESSURE 73 09/18/2024 10:53:57 [facility] PULSE OXIMETRY 100 % 09/18/2024 10:53:57 [facility] WEIGHT 239.8 09/18/2024 10:53:[facility] BMI 37 kg/m2 09/18/2024 10:53:[facility] PAIN 4 09/18/2024 10:53:57 [facility] TEMPERATURE 97 09/18/2024 10:53:57 [facility] PULSE 62 09/18/2024 10:53:57 [facility] RESPIRATION 18 09/18/2024 10:53:57 [facility] Encounters Combined list of: 1) Encounters from Department of Veterans Affairs facilities going backup to the last 18 months, not all VA inpatient encounters are included; 2) Encounters from the Department of [facility] facilities going backup to 280 months. Location Location Details Encounter Type Encounter Number Reason For Visit Attending Provider ADM Date DC Date Status Disposition Source [facility](Au diology [facility] 1523) OUTPATIENT [id number] JHONATAN CARVAJAL 06/19 Released w/o Limitations [facility]( Audiolo gy [facility] 1523) [facility](Fe male Screening 1523) OUTPATIENT [id number] FANNY Reyna 06/20 Released w/o Limitations [facility]( Female Screeni ng 1523) [facility](We llness Clinic Female) OUTPATIENT [id number] class CECY PITTS 06/20 Released w/o Limitations [facility]( Wellnes s Clinic Female) [facility](Op tometry [facility] 1523) OUTPATIENT [id number] recruit screen DANISH BERG 06/20 Released w/o Limitations [facility]( Optomet ry [facility] 1523) [facility](We ekend Mil Sick Call 1007) OUTPATIENT [id number] cold shayanx ZELDA RICHEY 07/08 Sick at Home/Quarter s [facility]( Weekend Mil Sick Call 1007) [facility]( ip 9 Sickcall Vicente) OUTPATIENT [id number] F/U flu symptom s SHIREEN LARA 07/10 Released w/o Limitations [facility]( [facility] 9 Sickcal l Vicente ) [facility](10 07 Phys Therapy) OUTPATIENT [id number] ship 9 sick call PATY WEINSTEIN 07/11 Released with Work/Duty Limitations [facility]( 1007 Phys Therapy ) [facility](Po diatry Clinic [facility] 1007) OUTPATIENT [id number] right ankle RADHA SPENSER Arian 07/12 Released w/o Limitations [facility]( Podiatr y Clinic [facility] 1007) [facility]( ip 9 Sickcall Vicente) OUTPATIENT [id number] female issues ARTATES, NEMESIA F 07/20 Released w/o Limitations [facility]( Ship 9 Sickcal l [place]ente ) [facility](Me d. Assessmen t/1523) OUTPATIENT [id number] 5-2 TABATHA HAWTHORNE 07/21 Released w/o Limitations [facility]( Med. Assessm ent/152 3) [facility](Me d. Assessmen t/1523) OUTPATIENT [id number] FANNY LOMBARDO 07/21 Released w/o Limitations [facility]( Med. Assessm ent/152 3) [facility] [place] [facility] ) OUTPATIENT [id number] (resche d from Jun 10) RENETTA @ [address] 06/19 Released w/o Limitations [facility]([place] [facility] [facility] ry) [facility](Emergen cy Medicine NMCP) OUTPATIENT [id number] IWONA CAM 09/29 Released w/o Limitations [facility](Aicha rgency Medicin e NMCP) [facility](Hearing Cons [place]) OUTPATIENT [id number] MATILDA MANNING 11/13 Released w/o Limitations [facility](Hea ring Cons [place]) [facility](Mi litary Sick Call [facility] 237) OUTPATIENT [id number] BC request ANNETTA FROST 09/02 Released w/o Limitations [facility]( Militar y Sick Call [facility] 237) [facility](Mi litary Sick Call [facility] 237) OUTPATIENT [id number] Needs to switch control FABBY MURILLO 12/03 Released w/o Limitations [facility]( Militar y Sick Call [facility] 237) [facility] ) OUTPATIENT [id number] APRIL HUDSON 03/31 Released w/o Limitations [facility](N aval Station Optomet ry) [facility] HC Program) OUTPATIENT [id number] Notes Entered by: KATELYN DONNELLY 09 Apr 2013 0828 ------- ------- ------- ------- -- annual JUAN C DONNELLY 04/09 Released w/o Limitations [facility](N [facility] HC Program ) [facility] [facility]) OUTPATIENT [id number] knee CORNELIO MERCER 01/21 Released w/o Limitations [facility](N aval Station Physica l Therapy ) [facility]) OUTPATIENT [id number] THEA ROSA ELENA P 01/22 Released w/o Limitations [facility] Station Physica l Therapy ) [facility] [facility]) OUTPATIENT [id number] DANISH COWART 01/27 Released w/o Limitations [facility] Physica l Therapy ) [facility]) OUTPATIENT [id number] JAMES ALVAREZ V 02/02 Released with Work/Duty Limitations [facility] Physica l Therapy ) [facility] [place] [facility]) OUTPATIENT [id number] ABRAN BRICEÑO 02/10 Released w/o Limitations [facility] Physica l Therapy ) [facility]) OUTPATIENT [id number] f/u CORNELIO Worley 02/15 Released w/o Limitations [facility] Station Physica l Therapy ) [facility]([place] [facility]) OUTPATIENT [id number] PNR SENA BERNABE 03/16 Released w/o Limitations [facility](S D Administrative [facility] Justice Operati ons Center) [facility]([place] Administrative [facility] Justice [place]) OUTPATIENT [id number] Notes Entered by: JANICE CARPENETR 16 Mar 2014 0916 ------- ------- ------- ------- -- PNR TWIN FRANKLIN 03/16 Released w/o Limitations [facility](S D Administrative Court Justice [place]) [facility] [place] [facility]) OUTPATIENT [id number] f/u knee/ba CORNELIO Nichols 03/18 Released w/o Limitations [facility] Physica l Therapy ) [facility]([place] [facility] Operation [facility]) TELE CONSULT [id number] Notes Entered by: GILBERT MEHTA 19 Mar 2014 1655 ------- ------- ------- ------- -- Low Blood Sugar ETELVINA CAMEJO NIKO 03/20 Released to Self Care [facility](S D [facility] Justice Operati ons Center) [facility] Administrative Court Justice Dual Rate Dealer) OUTPATIENT [id number] NOB LIZA 10/16/14 TIMO JACKSON 04/16 Released w/o Limitations [facility](N TC Administrative Court Justice Dual Rate Dealer ) [facility](NI Fam Med PCMH Tm 2) OUTPATIENT [id number] Cold SX JULIAN HUFFMAN 04/27 Sick at Home/Quarter s [facility](N I Fam Med PCMH Tm 2) [facility] Administrative Court Justice Dual Rate Dealer) OUTPATIENT [id number] lizzie@17+ wks TIMO JACKSON 05/13 Released w/o Limitations [facility](N TC Administrative Court Justice Dual Rate Dealer ) [facility](NI Fam Med PCMH Tm 2) TELE CONSULT [id number] Notes Entered by: NEW FROST 20 May 2014 0803 ------- ------- ------- ------- -- EDF Lower Back Pain, 18 Wks Preg 19 May 2014 JULIAN HUFFMAN 05/20 Referred for Appointment [facility](N I Fam Med PCMH Tm 2) [facility](NI Chiroprac tic Cln) OUTPATIENT [id number] FANNY Clifton 05/24 Released w/o Limitations [facility](N I Chiropr actic Cln) [facility](NI Chiroprac tic Cln) OUTPATIENT [id number] FANNY JO 06/08 Released w/o Limitations [facility](N I Chiropr actic Cln) [facility]([place] [facility] Justice Dual Rate Dealer) OUTPATIENT [id number] rob21+w ks TIMO JACKSON 06/11 Released w/o Limitations [facility](N TC Administrative Court Justice Dual Rate Dealer ) [facility](NI Chiroprac tic Cln) OUTPATIENT [id number] FANNY JO W 06/22 Released w/o Limitations [facility](N I Chiropr actic Cln) [facility](NI Chiroprac tic Cln) OUTPATIENT [id number] FANNY JO 07/06 Released w/o Limitations [facility](N I Chiropr actic Cln) [facility](NTC Administrative [facility] Justice Dual Rate Dealer) TELE CONSULT [id number] Notes Entered by: Shyam DE LA PAZ 13 Jul 2014 1523 ------- ------- ------- ------- -- SPIDER BITE NOW FEELING SICK JAMILA SMITH 07/13 Referred for Appointment [facility](N TC Administrative Court Justice Dual Rate Dealer ) [facility](NI Chiroprac tic Cln) OUTPATIENT [id number] FANNY JO 07/20 Released w/o Limitations [facility](N I Chiropr actic Cln) [facility]([place] [facility] Justice Dual Rate Dealer) OUTPATIENT [id number] lizzie 28+2 wks.. DARYL Cardoso pt 07/26 Released w/o Limitations [facility](N TC Administrative [facility] Justice Dual Rate Dealer ) [facility]([place] [facility] Justice Dual Rate Dealer) OUTPATIENT [id number] Notes Entered by: Neena TALAVERA 26 Jul 2014 1003 ------- ------- ------- ------- -- SYMONE Torrez 07/26 Released w/o Limitations [facility](N TC Administrative [facility] Justice Dual Rate Dealer ) [facility] Justice Dual Rate Dealer) OUTPATIENT [id number] Notes Entered by: ROSA ELENA GOODWIN 26 Jul 2014 1241 ------- ------- ------- ------- -- Tdap vaccine jbr ROSA ELENA GOODWIN 07/26 Released w/o Limitations [facility](N TC Administrative Court Justice Dual Rate Dealer ) [facility](NI Chiroprac tic Cln) OUTPATIENT [id number] FANNY JO 08/10 Released w/o Limitations [facility](N I Chiropr actic Cln) [facility] Administrative Court Justice Dual Rate Dealer) OUTPATIENT [id number] lizzie @31+wks copy chart DARYL LÓPEZ 08/20 Released w/o Limitations [facility](N TC Administrative Court Justice Dual Rate Dealer ) [facility] Administrative Court Justice Dual Rate Dealer) TELE CONSULT [id number] Notes Entered by: RUDDY GARCIA 23 Aug 2014 1912 ------- ------- ------- ------- -- Labs DARYL LÓPEZ 08/24 [facility](M CASM Administrative Court Justice Dual Rate Dealer ) [facility] Administrative Court Justice Dual Rate Dealer) TELE CONSULT [id number] Notes Entered by: CB MARHS 24 Aug 2014 0827 ------- ------- ------- ------- -- 32 wks c/o on going headach es and f/u from ED. Provied er is Gilbert hare. DARYL LÓPEZ 08/24 [facility](N TC Administrative [facility] Justice Dual Rate Dealer ) [facility] Administrative Court Justice Dual Rate Dealer) OUTPATIENT [id number] LIZZIE 32+ DARYL LÓPEZ 08/27 Released w/o Limitations [facility](N TC Administrative Court Justice Dual Rate Dealer ) [facility] Administrative Court Justice Dual Rate Dealer) TELE CONSULT [id number] Notes Entered by: Hayden GLOVER 07 Sep 2014 0909 ------- ------- ------- ------- -- Blood pressur e/JAMILA Bedolla 09/07 Referred for Appointment [facility](N TC Administrative [facility] Justice Dual Rate Dealer ) [facility] Administrative Court Justice Dual Rate Dealer) OUTPATIENT [id number] lizzie liza 015 36+5wks ZENA ESCAMILLA 09/23 Released w/o Limitations [facility](N TC Administrative [facility] Justice Dual Rate Dealer ) [facility] Administrative Court Justice Dual Rate Dealer) OUTPATIENT [id number] lizzie liza 015 38+2wks ZENA ESCAMILLA 10/04 Released w/o Limitations [facility](N TC Administrative Court Justice Dual Rate Dealer ) [facility] FROM OTHER THAN ER OR APU [id number] SHARYN ENCISO 10/14 RETURNED TO DUTY [facility] Administrative Court Justice Dual Rate Dealer) OUTPATIENT [id number] lizzie liza 015 39+5wks DARYL LÓPEZ 10/14 Released w/o Limitations [facility](N TC Administrative Court Justice Dual Rate Dealer ) [facility]( [facility] TELE CONSULT [id number] Notes Entered by: NEW FROST 20 Oct 2014 0807 ------- ------- ------- ------- -- IPF 650 Normal Deliver y 18 Oct 2014 JULIAN HUFFMAN 10/20 Referred for Appointment [facility](N I Fam Med [facility] Tm 2) [facility] Supervisor Finishing Department Dual Rate Dealer) TELE CONSULT [id number] Notes Entered by: SIVA HERNANDEZ 20 Oct 2014 1429 ------- ------- ------- ------- -- Patient is 4 days pp c/o swellin g in her legs and feet. JAMILA SMITH 10/20 Referred for Appointment [facility](N TC Supervisor Finishing Department Dual Rate Dealer ) [facility] ER, DIRECT TO [facility] [id number] JAD LOU 10/23 RETURNED TO DUTY [facility] Administrative Court Justice Dual Rate Dealer) TELE CONSULT [id number] Notes Entered by: SIVA HERNANDEZ 26 Oct 2014 1146 ------- ------- ------- ------- -- Patient had her baby on Oct.16 need a F/U appt. In a week for BP check SYMONE TALAVERA 10/26 Referred for Appointment [facility](N Administrative Court Justice Dual Rate Dealer ) [facility] Tm 2) TELE CONSULT [id number] Notes Entered by: NEW FROST 27 Oct 2014 0739 ------- ------- ------- ------- -- IPF 642.41 Mild/No s [place] mp-Deli v 25 Oct 2014 JULIAN HUFFMAN 10/27 Referred for Appointment [facility](N I [facility] Tm 2) [facility]([place] [facility] Justice FAU) OUTPATIENT [id number] 1week f/u bp ck LINDA SIEGEL 11/02 Released w/o Limitations [facility]( D Administrative Court Justice FAU) [facility]([place] [facility] Operation s Center) TELE CONSULT [id number] Notes Entered by: WHITLEY ACEVEDO 22 Nov 2014 1034 ------- ------- ------- ------- -- Irregul ar HR, high b/p, and PP bleedin g WHITLEY ACEVEDO 11/22 Referred- Emergency Department [facility] Administrative Court Justice Operati ons Center) [facility] Tm 2) TELE CONSULT [id number] Notes Entered by: NEW FROST 23 Nov 2014 0835 ------- ------- ------- ------- -- EDF Chest Pain and Vag Bleedin g 22 Nov 2014 JULIAN HUFFMAN 11/23 Referred for Appointment [facility](N I [facility] Tm 2) [facility]([place] [address] [facility] Justice FAU) OUTPATIENT [id number] WEEK PP/READ MITTED WITH SEVERE PREECLA MPSIA LINDA SIEGEL 12/01 Released w/o Limitations [facility](S D Administrative Court Justice FAU) [facility]([place] Cardiolog y Cln) OUTPATIENT [id number] chest pain JULIO CÉSAR ESTEBAN 12/07 Released w/o Limitations [facility](S D Cardiol ogy Cln) [facility]([place] Cardiolog y Echo) OUTPATIENT [id number] WICHO LEBRON (SYSTEM IC) CHRISTAL CHEW 12/07 Released w/o Limitations [facility](S D Cardiol ogy Echo) [facility]([place] Dermatolo gy) OUTPATIENT [id number] DANISH Guerrero 01/24 Released w/o Limitations [facility](S D Dermato logy) [facility](NI Imms PCMH Tm 2) OUTPATIENT [id number] Notes Entered by: GIOVAAN AL 24 Jan 2015 1239 ------- ------- ------- ------- -- PPD, FLU SHOT ELY ZARATE 01/24 Released w/o Limitations [facility](N I Imms PCMH Tm 2) [facility] FROM OTHER THAN ER OR APU [id number] JUAN CARLOS KIRKPATRICK 02/03 RETURNED TO DUTY [facility](NI HC Program) OUTPATIENT [id number] Notes Entered by: SARAH BLANCO V 07 Feb 2015 0719 ------- ------- ------- ------- -- annual SHERLYN GANN V 02/07 Released w/o Limitations [facility](N I HC Program ) [facility](NI Fam Med PCMH Tm 2) TELE CONSULT [id number] Notes Entered by: NEW FROST 07 Feb 2015 0854 ------- ------- ------- ------- -- IPF 000 Unknown 04 Feb 2015 JULIAN HUFFMAN 02/07 Referred for Appointment [facility](N I Fam Med PCMH Tm 2) [facility](NI Fam Med PCMH Tm 2) OUTPATIENT [id number] Notes Entered by: FRANK TONY 07 Feb 2015 1013 ------- ------- ------- ------- -- PHA PART 2 KENROY BRAY 02/07 Released w/o Limitations [facility](N I Fam Med PCMH Tm 2) [facility]([place] General Surg) OUTPATIENT [id number] f/u luzmaria KIRKPATRICKJUAN CARLOS 02/18 Released w/o Limitations [facility](S D General Surg) [facility](NI Optometry ) OUTPATIENT [id number] SHERLYN OLIVA 04/08 Released w/o Limitations [facility](N I Optomet ry) [facility](NI Occ Health) OUTPATIENT [id number] (PORT OPS) JUAN CARLOS COULTER 04/14 Released w/o Limitations [facility](N I Occ Health) [facility](NI Occ Health) OUTPATIENT [id number] -PART2 (PORT-O PS)CORNELIO ALMARAZ 05/02 Released w/o Limitations [facility](N I Occ Health) [facility](NI Fam Med PCMH Tm 2) OUTPATIENT [id number] referra l to podiatr y TABATHA FRANCES 05/16 Released w/o Limitations [facility](N I Fam Med PCMH Tm 2) [facility] Ortho Podiatry Service) OUTPATIENT [id number] Plantar fascial fibroma tosis DO, VANE FLY 06/06 Released w/o Limitations [facility](N TC Ortho Podiatr y Service ) [facility](NI Optometry ) OUTPATIENT [id number] SHERLYN ERWIN 06/21 Released w/o Limitations [facility](N I Optomet ry) [facility](NI Fam Med PCMH Tm 2) OUTPATIENT [id number] Notes Entered by: SONIYA ANTONIO 05 Jul 2015 0859 ------- ------- ------- ------- -- NPV Other DIPAK GIL 07/04 Released w/o Limitations [facility](N I Fam Med PCMH Tm 2) [facility](NI Fam Med PCMH Tm 1) OUTPATIENT [id number] ER f/u for chest discomf ort, back pain and finger numbnes s CLAUDIA SANCHEZ P 07/21 Released w/o Limitations [facility](N I Fam Med PCMH Tm 1) [facility](NI Chiroprac tic Cln) OUTPATIENT [id number] Notes Entered by: HAILEY RG 22 Jul 2015 0837 ------- ------- ------- ------- -- walk in SANDRO FANNY Yoni 07/21 Released w/o Limitations [facility](N I Chiropr actic Cln) [facility](NI Fam Med PCMH Tm 2) TELE CONSULT [id number] Notes Entered by: DIPAK GIL 22 Jul 2015 1134 ------- ------- ------- ------- -- EDF- CHEST PAIN, BACK PAIN -21 Jul 2015 0913 DIPAK GIL 07/21 Referred for Appointment [facility](N I Fam Med PCMH Tm 2) [facility](NI Fam Med PCMH Tm 2) OUTPATIENT [id number] f/u regardi ng MRI results BORIS CHILDS 09/22 Released w/o Limitations [facility](N I Fam Med PCMH Tm 2) [facility](NI Fam Med PCMH Tm 1) TELE CONSULT [id number] Notes Entered by: NINA RODRIGUEZ 30 Sep 2015 0917 ------- ------- ------- ------- -- PREVMED -NINA HANSEN 09/29 Referred for Appointment [facility](N I Fam Med PCMH Tm 1) [facility](NI Chiroprac tic Cln) OUTPATIENT [id number] Radicul opathy, cervica l region FANNY JO Yoni 10/02 Released w/o Limitations [facility](N I Chiropr actic Cln) [facility](NI Fam Med PCMH Tm 1) OUTPATIENT [id number] IWONA/BORIS GREEN 10/03 Released w/o Limitations [facility](N I Fam Med PCMH Tm 1) [facility](NI Physical Therapy) OUTPATIENT [id number] Radicul opathy, cervica l region JULIA GUERRERO 10/04 Released w/o Limitations [facility](N I Physica l Therapy ) [facility](NI Fam Med PCMH Tm 1) OUTPATIENT [id number] nexplan on inserti on CHEPEBORIS 10/09 Released w/o Limitations [facility](N I Fam Med PCMH Tm 1) [facility](NI Chiroprac tic Cln) OUTPATIENT [id number] FANNY JO 10/17 Released w/o Limitations [facility](N I Chiropr actic Cln) [facility](NI Physical Therapy) OUTPATIENT [id number] JEANCARLOS LIN 11/01 Released w/o Limitations [facility](N I Physica l Therapy ) [facility](NI Chiroprac tic Cln) OUTPATIENT [id number] F/u FANNY JO 11/02 Released w/o Limitations [facility](N I Chiropr actic Cln) [facility] Ortho Podiatry Service) OUTPATIENT [id number] f/u b feet DO, VANE FLY 11/03 Released w/o Limitations [facility](N TC Ortho Podiatr y Service ) [facility](NI Fam Med PCMH Tm 2) OUTPATIENT [id number] hip px x2 wks KENROY BRAY 11/20 Released with Work/Duty Limitations [facility](N I Fam Med PCMH Tm 2) [facility](NI Fam Med PCMH Tm 2) OUTPATIENT [id number] Notes Entered by: KAYLA BIRD 23 Nov 2015 0710 ------- ------- ------- ------- -- alethea-GUILLE Chapin V 11/22 Sick at Home/Quarter s [facility](N I Fam Med PCMH Tm 2) [facility](NAB Physical Therapy) OUTPATIENT [id number] ALISA HEARN 11/27 Released w/o Limitations [facility](N AB Physica l Therapy ) [facility](NI Fam Med PCMH Tm 2) OUTPATIENT [id number] Parfq related concern s (per RN GG) KENROY BRAY 12/01 Released with Work/Duty Limitations [facility](N I Fam Med PCMH Tm 2) [facility](NAB Physical Therapy) OUTPATIENT [id number] CAROLYNE MA 12/07 Released with Work/Duty Limitations [facility](N AB Physica l Therapy ) [facility](NAB Physical Therapy) OUTPATIENT [id number] CAROLYNE MA 12/12 Released with Work/Duty Limitations [facility](N AB Physica l Therapy ) [facility](NAB Physical Therapy) OUTPATIENT [id number] ALISA MELGAR P 12/15 Released w/o Limitations [facility](N AB Physica l Therapy ) [facility](NAB Physical Therapy) OUTPATIENT [id number] CAROLYNE MA 12/21 Released with Work/Duty Limitations [facility](N AB Physica l Therapy ) [facility](NAB Physical Therapy) OUTPATIENT [id number] CAROLYNE MA 12/26 Released with Work/Duty Limitations [facility](N AB Physica l Therapy ) [facility](NAB Physical Therapy) OUTPATIENT [id number] LAMSEN, EL V 01/02 Released w/o Limitations [facility](N AB Physica l Therapy ) [facility](NAB Physical Therapy) OUTPATIENT [id number] CAROLYNE MA 01/04 Released with Work/Duty Limitations [facility](N AB Physica l Therapy ) [facility](NAB Physical Therapy) OUTPATIENT [id number] LAMSEN, EL V 01/08 Released w/o Limitations [facility](N AB Physica l Therapy ) [facility](NI Imms PCMH Tm 2) OUTPATIENT [id number] Notes Entered by: JAXSON LIM 09 Jan 2016 1614 ------- ------- ------- ------- -- IMMUNIZ SHIRLEY IWONA BAKER Efren 01/08 Released w/o Limitations [facility](N I Imms PCMH Tm 2) [facility](NAB Physical Therapy) OUTPATIENT [id number] ANIL CAROLYNE Schwartz 01/17 Released with Work/Duty Limitations [facility](N AB Physica l Therapy ) [facility](NAB Physical Therapy) OUTPATIENT [id number] ALISA HEARN 01/22 Released w/o Limitations [facility](N AB Physica l Therapy ) [facility](NAB Physical Therapy) OUTPATIENT [id number] CAROLYNE MA 01/30 Released with Work/Duty Limitations [facility](N AB Physica l Therapy ) [facility](NAB Physical Therapy) OUTPATIENT [id number] EL MEHTA V 02/08 Released w/o Limitations [facility](N AB Physica l Therapy ) [facility](NAB Physical Therapy) OUTPATIENT [id number] CAROLYNE MA 02/15 Released with Work/Duty Limitations [facility](N AB Physica l Therapy ) [facility](NI Fam Med PCMH Tm 2) OUTPATIENT [id number] worseni ng cold LINDA Steven 02/19 Sick at Home/Quarter s [facility](N I Fam Med PCMH Tm 2) [facility](NAB Physical Therapy) OUTPATIENT [id number] ALISA HEARN 02/21 Released w/o Limitations [facility](N AB Physica l Therapy ) [facility](NI HC Program) OUTPATIENT [id number] Notes Entered by: Hayden HANDLEY 28 Mar 2016 0924 ------- ------- ------- ------- -- CORNELIO DOUGHERTY 03/28 Released w/o Limitations [facility](N I HC Program ) [facility](NI Fam Med PCMH Tm 2) TELE CONSULT [id number] Notes Entered by: Efren TREJO 29 Mar 2016 0820 ------- ------- ------- ------- -- NPV Labs GUILLE XIAO V 03/29 Released to Self Care [facility](N I Fam Med PCMH Tm 2) [facility](NI Optometry ) OUTPATIENT [id number] YAN MANLEYSSHERLYN 03/29 Released w/o Limitations [facility](N I Optomet ry) [facility](NI Med Readiness Cln) OUTPATIENT [id number] Sep PE LUANNE LORENZO 04/11 Released w/o Limitations [facility](N I Med Readine ss Cln) [facility] Outpatient Encounter [id number] Diagnos is: ICD-10- CM 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 BORIS ALBERTO Flako 05/20 [facility] MED NUTRITION INDIV SUBSEQ [id number] Diagnos is: ICD-10- CM E66.9 Obesity , unspeci fied DAYTON MAYEN 05/28 [facility] DIVISION OFFICE O/P EST LOW 20 MIN [id number] Diagnos is: ICD-10- CM E66.9 Obesity , unspeci fied ANDREW WAGNER 07/09 [facility] DIV[facility]IO N [facility] Outpatient Encounter [id number] 07/10 [facility] N [facility] Outpatient Encounter [id number] MARINE DELAROSA 07/30 [facility] Outpatient Encounter [id number] 08/06 [facility] OFFICE O/P EST MOD 30 MIN [id number] Diagnos is: ICD-10- CM 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 DEPDIONNE TIJERINA 08/06 [facility] Outpatient Encounter [id number] 08/19 [facility] Outpatient Encounter [id number] SKIP OLSON J 11/01 [facility] Outpatient Encounter [id number] 11/04 [facility] Outpatient Encounter [id number] LETTYDIANN ISTINE M 11/21 [facility] Outpatient Encounter [id number] SKIP OLSON J 11/24 [facility] Outpatient Encounter [id number] SKIP OLSON J 11/24 [facility] Outpatient Encounter [id number] YVONNE GÓMEZ 11/26 [facility] HLTH BHV ASSMT/REAS SESSMENT [id number] Diagnos is: ICD-10- CM Z33.1 [place]regnan t state, inciden ketty YVONNE GÓMEZ D 11/26 [facility] Outpatient Encounter [id number] 11/26 [facility] Outpatient Encounter [id number] Mirela BROOKS 11/27 [facility] HC PRO PHONE CALL 5-10 MIN [id number] Diagnos is: ICD-10- CM Z33.1 [place]reg[place] t state, incidjagruti YVONNE Davalos D 12/01 [facility] Outpatient Encounter [id number] 12/18 [facility] HC PRO PHONE CALL 21-30 MIN [id number] Diagnos is: ICD-10- CM Z33.1 Pregnan t state, incidjagruti MONICA Gillette 12/31 [facility] Outpatient Encounter [id number] 01/16 [facility] Outpatient Encounter [id number] 01/27 [facility] Outpatient Encounter [id number] 02/02 [facility] Outpatient Encounter [id number] VESNA VICKERS 02/02 [facility] HC PRO PHONE CALL 11-20 MIN [id number] Diagnos is: ICD-10- CM Z33.1 Pregnan t state, andrew YVONNE Davalos 02/09 [facility] Outpatient Encounter [id number] 02/13 [facility] Outpatient Encounter [id number] 02/13 [facility] Outpatient Encounter [id number] 02/13 [facility] Outpatient Encounter [id number] 02/17 [facility] [facility] Outpatient Encounter [id number] DARYL LONG 02/23 [facility] SYNCH AUDIO-ONLY EST LOW 20 [id number] [id number] Diagnos is: ICD-10- CM Z33.1 [place] ketty DIONNE LOPEZ 03/17 [facility]ISION Outpatient Encounter [id number] 03/20 [facility] PH1 ASSMT&MGMT NQHP 5-10 [id number] Diagnos is: ICD-10- CM 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 YVONNE Boyle 03/23 [facility] Outpatient Encounter [id number] LETTY MCRAE 03/23 [facility] Outpatient Encounter [id number] URBANO MAYNARD 03/26 [facility] Outpatient Encounter [id number] DIONNE LOPEZ 03/27 [facility] Out[facility] Encounter [id number] CAESARURBANO Blake 03/31 [facility] Outpatient Encounter [id number] 03/31 [facility] PH1 ASSMT&MGMT NQHP 5-10 [id number] [id number] Diagnos is: ICD-10- CM 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 YVONNE Boyle 04/09 [facility] OFF/OP CNSLTJ NEW/EST LOW 30 [id number] [id number] Diagnos is: ICD-10- CM 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 in behavio r of skin Leonel OROPEZA 04/14 [facility] Outpatient Encounter [id number] 04/17 [facility] Outpatient Encounter [id number] LETTY MCRAE 04/21 [facility] BHV ASSMT/REAS SESSMENT [id number] [id number] Diagnos is: ICD-10- CM Z33.1 [place] YOVNNE Davalos 04/28 [facility] Outpatient Encounter [id number] [id number] 05/15 [facility] PH1 ASSMT&MGMT NQHP 5-10 [id number] [id number] Diagnos is: ICD-10- CM 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 YVONNE Boyle 05/26 [facility] Outpatient Encounter [id number] 06/08 [facility] PSYTX W PT 30 MINUTES [id number] [id number] Diagnos is: ICD-10- CM F41.9 Anxiety disorde r, unspeci fied Shashank SANCHEZ ERA J 06/12 [facility] Outpatient Encounter [id number] [id number] Shashank SANCHEZ J 06/12 [facility] OFF/OP CNSLTJ NEW/EST LOW 30 [id number] [id number] Diagnos is: ICD-10- CM M54.50 Low back pain, unspeci fied GERMAINE,ROS S 06/15 [facility] PH1 ASSMT&MGMT NQHP 5-10 [id number] [id number] Diagnos is: ICD-10- CM 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 YVONNE Boyle 06/17 [facility] Outpatient Encounter [id number] [id number] LETTY MCRAE 06/17 [facility] NQHP OL DIG ASSMT&MGMT 5-10 [id number] [id number] Diagnos is: ICD-10- CM E88.819 Insulin resista nce, unspeci fied SCHMEES,NA NCY JENNY 06/17 [facility] PSYTX W PT 30 MINUTES [id number] [id number] Diagnos is: ICD-10- CM F41.9 Anxiety disorde r, unspeci fied Shashank SANCHEZ ERA J 06/24 [facility] PH1 ASSMT&MGMT NQHP 5-10 [id number] [id number] Diagnos is: ICD-10- CM 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 YVONNE Boyle 06/24 [facility] Outpatient Encounter [id number] [id number] LETTY MCRAE 06/29 [facility] DIV[facility]IO N [facility]ISION Outpatient Encounter [id number] [id number] 06/29 [facility] DIVIS N [facility] Outpatient Encounter [id number] [id number] 06/30 [facility] Outpatient Encounter [id number] [id number] Mirela BROOKS 06/30 [facility] PSYTX W PT 30 MINUTES [id number] [id number] Diagnos is: ICD-10- CM F41.9 Anxiety disorde r, unspeci Shashank Vega ERA J 07/08 [facility] Outpatient Encounter [id number] 07/24 [facility] DIVIS N [facility] Outpatient Encounter [id number] [id number] LETTY MCRAE 07/27 [facility]ISIO N [facility]ISION Outpatient Encounter [id number] 07/30 [facility] DIVIS N [facility] Outpatient Encounter [id number] [id number] LETTY MCRAEANGELICA PRATIBHA 07/30 [facility] NQHP OL DIG ASSMT&MGMT 21+ [id number] [id number] Diagnos is: ICD-10- CM Z86.711 Persona l history of pulmona ry embolis m Arian SANDHU NNA P 07/30 [facility] HL[facility] BHV ASSMT/REAS SESSMENT [id number] [id number] Diagnos is: ICD-10- CM Z39.2 Encount er for routine postpar sabine follow- up YVONNE GÓMEZ 07/30 [facility] Outpatient Encounter [id number] [id number] DIONNE LOPEZ 07/31 [facility] NQHP OL DIG ASSMT&MGMT 5-10 [id number] [id number] Diagnos is: ICD-10- CM Z86.711 Persona l history of pulmona ry embolis m MARCOZOILA Shayan 08/04 [facility] Outpatient Encounter [id number] 08/04 [facility] Outpatient Encounter [id number] [id number] SKIP OLSON 08/04 [facility] Outpatient Encounter [id number] [id number] [place] JERRY Martínez 08/04 [facility] MTMS BY PHARM EST 15 MIN [id number] [id number] Diagnos is: ICD-10- CM Z51.81 Encount er for therape utic drug level monitor ZOILA Acosta 08/05 [facility] Outpatient Encounter [id number] [id number] DIONNE LOPEZ 08/05 [facility] SYNCH AUDIO-ONLY EST MOD 30 [id number] [id number] Diagnos is: ICD-10- CM I26.99 Other pulmona ry embolis m without acute cor pulmona le DIONNE LOPEZRamesh 08/[address] [facility] PSYTX W PT 30 MINUTES [id number] [id number] Diagnos is: ICD-10- CM F41.9 Anxiety disorde r, unspeci Shashank Vega ERA J 08/[address] [facility] PSYTX W PT 30 MINUTES [id number] [id number] Diagnos is: ICD-10- CM F41.9 Anxiety disorde r, unspeci Shashank Vega ERA J 08/26 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 YVONNE Boyle 08/26 [facility] MTMS BY PHARM EST 15 MIN [id number] [id number] Diagnos is: ICD-10- CM Z51.81 Encount er for therape utic drug level monitor ing ZOILA LARA 08/26 [facility] Outpatient Encounter [id number] [id number] ROGERIODIONNE TIJERINARamesh 08/28 [facility] Outpatient Encounter [id number] [id number] 08/31 [facility] PH1 ASSMT&MGMT NQHP 5-10 [id number] [id number] Diagnos is: ICD-10- CM 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 YVONNE Boyle D 09/07 [facility] Outpatient Encounter [id number] 09/08 [facility] Outpatient Encounter [id number] [id number] 09/08 [facility] OFFICE O/P EST HI 40 MIN [id number] [id number] Diagnos is: ICD-10- CM I10 Essenti al (primar y) hyperte Fortunato Restrepo 09/18 [facility] Outpatient Encounter [id number] 09/21 [facility] NQHP OL DIG ASSMT&MGMT 5-10 [id number] [id number] Diagnos is: ICD-10- CM R21 Rash and other nonspec ific skin eruptio Shyam Sullivan 09/25 [facility] NQHP OL DIG ASSMT&MGMT 5-10 [id number] [id number] Diagnos is: ICD-10- CM R21 Rash and other nonspec ifi skin eruptio n FABIANOIvan BARRON Y 09/28 [facility]IO N [facility] PSYTX W PT 30 MINUTES [id number] [id number] Diagnos is: ICD-10- CM F41.9 Anxiety disorde r, unspeci fied Shashank SANCHEZ 09/28 [facility] Outpatient Encounter [id number] SKIP OLSON 09/30 [facility] DIVISIO N Procedures Combined list of: 1) Procedures from Department of Veterans Affairs facilities going back up to thelast 18 months, not all [place] non-surgical procedures are included; 2) All procedures from the Department of Defense facilities. Procedure Procedure Type Code Date Perfomer Comments Formerly [facility] e SCREENING TEST, PURE TONE, AIR ONLY 2011 [facility] COMPRESSION BANDAGE, ROLL 2011 [facility] FITTING OF SPECTACLES, EXCEPT FOR APHAKIA; MONOFOCAL 2011 [facility] IMMUNIZATION ADMINISTRATION BY INTRANASAL OR ORAL ROUTE; 1 VACCINE (SINGLE OR COMBINATION VACCINE/TOXOID) 2012 [facility] TOBACCO USE CESSATION INTERVENTION, COUNSELING (COPD, CAP, CAD, ASTHMA) (DM) (PV) 2012 [facility] THERAPEUTIC, PROPHYLACTIC, OR DIAGNOSTIC INJECTION (SPECIFY SUBSTANCE OR DRUG); SUBCUTANEOUS OR INTRAMUSCULAR 2010 [facility] SKIN TEST; TUBERCULOSIS, INTRADERMAL 2010 [facility] THERAPEUTIC PROCEDURE, 1 OR MORE AREAS, EACH 15 MINUTES; THERAPEUTIC EXERCISES TO DEVELOP STRENGTH AND ENDURANCE, RANGE OF MOTION AND FLEXIBILITY 2010 [facility] SCREENING PAPANICOLAOU SMEAR; OBTAINING, PREPARING AND CONVEYANCE OF CERVICAL OR VAGINAL SMEAR TO LABORATORY 2010 [facility] IMMUNIZATION ADMINISTRATION (INCLUDES PERCUTANEOUS, INTRADERMAL, SUBCUTANEOUS, OR INTRAMUSCULAR INJECTIONS); 1 VACCINE (SINGLE OR COMBINATION VACCINE/TOXOID) 2010 [facility] OPHTHALMOLOGICAL SERVICES: MEDICAL EXAMINATION AND EVALUATION WITH INITIATION OF DIAGNOSTIC AND TREATMENT PROGRAM; COMPREHENSIVE, NEW PATIENT, 1 OR MORE VISITS 2010 [facility] AUDIOMETRIC TESTING OF GROUPS 2010 [facility] SKIN TEST; TUBERCULOSIS, INTRADERMAL 2010 [facility] VIS FUNCT SCREEN,AUTOMAT/SEMI- AUTOMAT BILAT QUANT DETERM VISUAL ACUITY,OCULAR ALIGN,COLOR VISION,PSEUDOISOCHRO MAT PLATES,& FIELD VIS (MAY INC ALL/SOME SCRN DETERM FOR CONTRAST SENSITIV,VIS UND GLARE) 2016 [facility] AUDIOMETRIC TESTING OF GROUPS 2016 [facility] PHYSICAL THERAPY RE-EVALUATION 2015 [facility] THERAPEUTIC PROCEDURE, 1 OR MORE AREAS, EACH 15 MINUTES; THERAPEUTIC EXERCISES TO DEVELOP STRENGTH AND ENDURANCE, RANGE OF MOTION AND FLEXIBILITY 2015 [facility] APPLICATION OF A MODALITY TO 1 OR MORE AREAS; HOT OR COLD PACKS 2015 [facility] THERAPEUTIC PROCEDURE, 1 OR MORE AREAS, EACH 15 MINUTES; THERAPEUTIC EXERCISES TO DEVELOP STRENGTH AND ENDURANCE, RANGE OF MOTION AND FLEXIBILITY 2015 [facility] PHYSICAL THERAPY RE-EVALUATION 2015 [facility] THERAPEUTIC PROCEDURE, 1 OR MORE AREAS, EACH 15 MINUTES; THERAPEUTIC EXERCISES TO DEVELOP STRENGTH AND ENDURANCE, RANGE OF MOTION AND FLEXIBILITY 2015 [facility] IMMUNIZATION ADMINISTRATION (INCLUDES PERCUTANEOUS, INTRADERMAL, SUBCUTANEOUS, OR INTRAMUSCULAR INJECTIONS); 1 VACCINE (SINGLE OR COMBINATION VACCINE/TOXOID) 2015 [facility] APPLICATION OF A MODALITY TO 1 OR MORE AREAS; ELECTRICAL STIMULATION (UNATTENDED) 2015 [facility] THERAPEUTIC PROCEDURE, 1 OR MORE AREAS, EACH 15 MINUTES; THERAPEUTIC EXERCISES TO DEVELOP STRENGTH AND ENDURANCE, RANGE OF MOTION AND FLEXIBILITY 2015 [facility] APPLICATION OF A MODALITY TO 1 OR MORE AREAS; ELECTRICAL STIMULATION (MANUAL), EACH 15 MINUTES 2015 [facility] THERAPEUTIC PROCEDURE, 1 OR MORE AREAS, EACH 15 MINUTES; THERAPEUTIC EXERCISES TO DEVELOP STRENGTH AND ENDURANCE, RANGE OF MOTION AND FLEXIBILITY 2015 [facility] APPLICATION OF A MODALITY TO 1 OR MORE AREAS; HOT OR COLD PACKS 2015 [facility] PHYSICAL THERAPY EVALUATION 2015 [facility] THERAPEUTIC PROCEDURE, 1 OR MORE AREAS, EACH [...] ENDURANCE, RANGE OF MOTION AND FLEXIBILITY 2015 [facility] CHIROPRACTIC MANIPULATIVE TREATMENT (CMT); SPINAL, 1-2 REGIONS 2015 [facility] THERAPEUTIC PROCEDURE,1 OR MORE AREAS,EACH 15 MINUTES;NEUROMUSCULA R REEDUCATION OF MOVEMENT,BALANCE,PAYROLL MACHINE OPERATOR RDINATION,KINESTHETI C SENSE,POSTURE,AND/OR PROPRIOCEPTION FOR SITTING AND/OR STANDING ACTIVITIES 2015 [facility] CHIROPRACTIC MANIPULATIVE TREATMENT (CMT); SPINAL, 3-4 REGIONS 2015 [facility] INSERTION, DRUG-DELIVERY IMPLANT (IE, BIORESORBABLE, BIODEGRADABLE, NON-BIODEGRADABLE) 2015 [facility] THERAPEUTIC PROCEDURE, 1 OR MORE AREAS, EACH 15 MINUTES; THERAPEUTIC EXERCISES TO DEVELOP STRENGTH AND ENDURANCE, RANGE OF MOTION AND FLEXIBILITY 2015 [facility] THERAPEUTIC PROCEDURE, 1 OR MORE AREAS, EACH 15 MINUTES; THERAPEUTIC EXERCISES TO DEVELOP STRENGTH AND ENDURANCE, RANGE OF MOTION AND FLEXIBILITY 2015 [facility] EDUCATIONAL SUPPLIES, SUCH BOOKS, TAPES, AND PAMPHLETS, FOR THE PATIENT'S EDUCATION AT COST TO PHYSICIAN OR OTHER QUALIFIED HEALTH ASSURANCE SENIOR MANAGER INSURANCE 2015 [facility] ELECTROCARDIOGRAM, ROUTINE ECG WITH AT LEAST 12 LEADS; WITH INTERPRETATION AND REPORT 2015 [facility] FITTING OF SPECTACLES, EXCEPT FOR APHAKIA; MONOFOCAL 2015 [facility] VIS FUNCT SCREEN,AUTOMAT/SEMI- AUTOMAT BILAT QUANT DETERM VISUAL ACUITY,OCULAR ALIGN,COLOR VISION,PSEUDOISOCHRO MAT PLATES,& FIELD VIS (MAY INC ALL/SOME SCRN DETERM FOR CONTRAST SENSITIV,VIS UND GLARE) 2015 [facility] VIS FUNCT SCREEN,AUTOMAT/SEMI- AUTOMAT BILAT QUANT DETERM VISUAL ACUITY,OCULAR ALIGN,COLOR VISION,PSEUDOISOCHRO MAT PLATES,& FIELD VIS (MAY INC ALL/SOME SCRN DETERM FOR CONTRAST SENSITIV,VIS UND GLARE) 2015 [facility] AUDIOMETRIC TESTING OF GROUPS 2014 [facility] RESECTION OF APPENDIX, PERCUTANEOUS ENDOSCOPIC APPROACH 2014 [facility] LAPAROSCOPY, SURGICAL, APPENDECTOMY 2014 [facility] IMMUNIZATION ADMINISTRATION (INCLUDES PERCUTANEOUS, INTRADERMAL, SUBCUTANEOUS, OR INTRAMUSCULAR INJECTIONS); 1 VACCINE (SINGLE OR COMBINATION VACCINE/TOXOID) 2014 [facility] BIOPSY OF SKIN, SUBCUTANEOUS TISSUE AND/OR MUCOUS MEMBRANE (INCLUDING SIMPLE CLOSURE),UNLESS OTHERWISE LISTED (SEPARATE PROCEDURE); EACH SEPARATE/ADD LESION (LIST SEP IN ADD TO CODE FOR PRIMARY PROC) 2014 [facility] ECHOCARDIOGRAPHY,TRA NSTHORACIC,REAL-TIME W IMAGE DOCUMENTATION (2D),INCLUDES M-MODE RECORDING,WHEN PERFORMED,COMPLETE,W ITH SPECTRAL DOPPLER ECHOCARDIOGRAPHY,AND W COLOR FLOW DOPPLER ECHOCARDIOGRAPHY 2014 [facility] ELECTROCARDIOGRAM, ROUTINE ECG WITH AT LEAST 12 LEADS; WITH INTERPRETATION AND REPORT 2014 [facility] ULTRASOUND, CHEST (INCLUDES MEDIASTINUM), REAL TIME WITH IMAGE DOCUMENTATION 2014 [facility] INTRAVENOUS INFUSION, HYDRATION; EACH ADDITIONAL HOUR (LIST SEPARATELY IN ADDITION TO CODE FOR PRIMARY PROCEDURE) 2014 [facility] INJECTION OF RH IMMUNE GLOBULIN 2014 [facility] TRANSFUSION OF PACKED CELLS 2014 [facility] LOW CERVICAL SECTION 2014 [facility] OTHER ARTIFICIAL RUPTURE OF MEMBRANES 2014 [facility] MEDICAL INDUCTION OF LABOR 2014 [facility] POSTOPERATIVE FOLLOW-UP VISIT, NORMALLY INCLUDED IN THE SURGICAL PACKAGE, INDICATE THAT EVALUATION & MANAGEMENT SERVICE WAS PERFORMED DURING A POSTOPERATIVE PERIOD REASON RELATED ORIGINAL PROCEDURE 2014 [facility] POSTOPERATIVE FOLLOW-UP VISIT, NORMALLY INCLUDED IN THE SURGICAL PACKAGE, INDICATE THAT EVALUATION & MANAGEMENT SERVICE WAS PERFORMED DURING A POSTOPERATIVE PERIOD REASON RELATED ORIGINAL PROCEDURE 2014 [facility] DELIVERY ONLY 2014 [facility] SUBSEQ CARE VISIT () [EXCLS:PATIENTS WHO ARE SEEN FOR A CONDITION UNREL TO / CARE (EG,AN UP RESPIR INFECT;PATIENTS SEEN FOR CONSULTATION ONLY,NOT FOR CONT CARE)] 2014 [facility] SUBSEQ CARE VISIT () [EXCLS:PATIENTS WHO ARE SEEN FOR A CONDITION UNREL TO / CARE (EG,AN UP RESPIR INFECT;PATIENTS SEEN FOR CONSULTATION ONLY,NOT FOR CONT CARE)] 2014 [facility] NON-STRESS TEST 2014 [facility] SUBSEQ CARE VISIT () [EXCLS:PATIENTS WHO ARE SEEN FOR A CONDITION UNREL TO / CARE (EG,AN UP RESPIR INFECT;PATIENTS SEEN FOR CONSULTATION ONLY,NOT FOR CONT CARE)] 2014 [facility] SUBSEQ CARE VISIT () [EXCLS:PATIENTS WHO ARE SEEN FOR A CONDITION UNREL TO / CARE (EG,AN UP RESPIR INFECT;PATIENTS SEEN FOR CONSULTATION ONLY,NOT FOR CONT CARE)] 2014 [facility] NON-STRESS TEST 2014 [facility] SUBSEQ CARE VISIT () [EXCLS:PATIENTS WHO ARE SEEN FOR A CONDITION UNREL TO / CARE (EG,AN UP RESPIR INFECT;PATIENTS SEEN FOR CONSULTATION ONLY,NOT FOR CONT CARE)] 2014 [facility] CHIROPRACTIC MANIPULATIVE TREATMENT (CMT); SPINAL, 1-2 REGIONS 2014 [facility] IMMUNIZATION ADMINISTRATION (INCLUDES PERCUTANEOUS, INTRADERMAL, SUBCUTANEOUS, OR INTRAMUSCULAR INJECTIONS); 1 VACCINE (SINGLE OR COMBINATION VACCINE/TOXOID) 2014 [facility] RHO(D) IMMUNE GLOBULIN (RHIG), HUMAN, FULL-DOSE, FOR INTRAMUSCULAR USE 2014 [facility] CHIROPRACTIC MANIPULATIVE TREATMENT (CMT); SPINAL, 1-2 REGIONS 2014 [facility] CHIROPRACTIC MANIPULATIVE TREATMENT (CMT); SPINAL, 1-2 REGIONS 2014 [facility] NON-STRESS TEST 2014 [facility] CHIROPRACTIC MANIPULATIVE TREATMENT (CMT); SPINAL, 1-2 REGIONS 2014 [facility] SUBSEQ CARE VISIT () [EXCLS:PATIENTS WHO ARE SEEN FOR A CONDITION UNREL TO / CARE (EG,AN UP RESPIR INFECT;PATIENTS SEEN FOR CONSULTATION ONLY,NOT FOR CONT CARE)] 2014 [facility] CHIROPRACTIC MANIPULATIVE TREATMENT (CMT); SPINAL, 1-2 REGIONS 2014 [facility] EDUCATIONAL SUPPLIES, SUCH BOOKS, TAPES, AND PAMPHLETS, FOR THE PATIENT'S EDUCATION AT COST TO PHYSICIAN OR OTHER QUALIFIED HEALTH ASSURANCE SENIOR MANAGER INSURANCE 2014 [facility] SUBSEQ CARE VISIT () [EXCLS:PATIENTS WHO ARE SEEN FOR A CONDITION UNREL TO / CARE (EG,AN UP RESPIR INFECT;PATIENTS SEEN FOR CONSULTATION ONLY,NOT FOR CONT CARE)] 2014 [facility] ULTRASOUND, UTERUS, REAL TIME WITH IMAGE DOCUMENTATION, LIMITED (EG, HEART BEAT, PLACENTAL LOCATION, POSITION AND/OR QUALITATIVE AMNIOTIC FLUID VOLUME), 1 OR MORE FETUSES 2014 [facility] PHYSICAL THERAPY RE-EVALUATION 2014 [facility] ULTRASOUND, UTERUS, REAL TIME WITH IMAGE DOCUMENTATION, AND MATERNAL EVALUATION, FIRST TRIMESTER (< 14 WEEKS 0 DAYS), TRANSABDOMINAL APPROACH; SINGLE OR FIRST GESTATION 2014 [facility] SELF-CARE/HOME MANAGMENT TRAIN (EG,ACT OF DAILY LIVING (ADL) &COMPENSAT TRAIN,MEAL PREPARATION,SAFETY PROCS,AND INSTRUCT IN USE OF ASST TECHNOLOGY DEV/ADPT EQUIP) DIR ONE-ON-ONE CONT,EA 15 MINUTES 2013 [facility] THERAPEUTIC PROCEDURE, 1 OR MORE AREAS, EACH 15 MINUTES; THERAPEUTIC EXERCISES TO DEVELOP STRENGTH AND ENDURANCE, RANGE OF MOTION AND FLEXIBILITY 2013 [facility] THERAPEUTIC ACTIVITIES, DIRECT (ONE-ON-ONE) PATIENT CONTACT (USE OF DYNAMIC ACTIVITIES TO IMPROVE FUNCTIONAL PERFORMANCE), EACH 15 MINUTES 2013 [facility] APPLICATION OF A MODALITY TO 1 OR MORE AREAS; HOT OR COLD PACKS 2013 [facility] THERAPEUTIC ACTIVITIES, DIRECT (ONE-ON-ONE) PATIENT CONTACT (USE OF DYNAMIC ACTIVITIES TO IMPROVE FUNCTIONAL PERFORMANCE), EACH 15 MINUTES 2013 [facility] SELF-CARE/HOME MANAGMENT TRAIN (EG,ACT OF DAILY LIVING (ADL) &COMPENSAT TRAIN,MEAL PREPARATION,SAFETY PROCS,AND INSTRUCT IN USE OF ASST TECHNOLOGY DEV/ADPT EQUIP) DIR ONE-ON-ONE CONT,EA 15 MINUTES 2013 [facility] AUDIOMETRIC TESTING OF GROUPS 2013 [facility] FITTING OF SPECTACLES, EXCEPT FOR APHAKIA; MONOFOCAL 2013 [facility] Audiometry Group Testing Audiometry Group Testing 87798 2013 JUAN C DONNELLY [facility] Determination Of Refractive State Determination Of Refractive State 71103 2013 CHRISTAL MARCUM [facility] [employer] Services Fitting Monofocals (Not For Aphakia) [employer] Fitting Monofocals (Not For Aphakia) 76300 2013 CHRISTAL MARCUM Ophthalmological New Patient Start Comprehensive Care Ophthalmological New Patient Start Comprehensive Care 31006 2013 CHRISTAL MARCUM [facility] Intervention And Counseling On Ce ation Of Tobacco Use Intervention And Counseling On Cessation Of Tobacco Use 4000F 2012 ANNETTA FROST [facility] current smoker current smoker 1034F 2012 ANNETTA FROST [facility] [employer] Testing Audiometry Group Testing 40194 2011 MATILDA MNANING [facility] Audiogram (Screening) Audiogram (Screening) 22306 2011 MATILDA MANNING [facility] Ophthalmological New Patient Start Comprehensive Care Ophthalmological New Patient Start Comprehensive Care 21435 2011 [facility] Determination Of Refractive State Determination Of Refractive State 78488 2011 [facility] [employer] Fitting Monofocals (Not For Aphakia) [employer] [facility] Fitting Monofocals (Not For Aphakia) [address] Supervised Injection Intramuscular Supervised Injection Intramuscular 55008 2010 LIOR HERNANDEZ Physical Therapy: ___ Se ion Segments, 15 Minutes Each Physical Therapy: ___ Session Segments, 15 Minutes Each 51914 2010 PATY WEINSTEIN Lift, elevation, heel, per inch 2010 SPENSER GARCIA Screening papanicolaou smear; obtaining, preparing and conveyance of cervical or vaginal smear to laboratory 2010 FANNY LOMBARDO Ophthalmological New Patient Start Comprehensive Care Ophthalmological New Patient Start Comprehensive Care 48299 2010 DANISH BERG Threshold Audiogram (Pure Tone) Threshold Audiogram (Pure Tone) 10407 2010 JHONATAN CARVAJAL [facility] Testing [facility] Testing 27854 2010 JHONATAN CARVAJAL Visual Function Screening Visual Function Screening 90391 2016 SLIM POWELL [facility] Testing 22035 2016 CORNELIO HANDLEY Physical Medicine Physical Therapy Re-Evaluation Physical Medicine Physical Therapy Re-Evaluation 38702 2015 ALISA FERRARA Modalities Heat Hot Packs Modalities Heat Hot Packs 76480 2015 [place] Mobilization Soft Ti ue Mobilization Soft Tissue 58040 2015 [place] Physical Therapy Mobilization Joint Physical Therapy Mobilization Joint 16131 2015 [place] Exercises A isted Exercises For ROM Exercises Assisted Exercises For ROM 79323 2015 [place] Modalities Heat Hot Packs Modalities Heat Hot Packs 83983 2015 LAMSEN, EL V Alfredo Physical Therapy Mobilization Joint Physical Therapy Mobilization Joint 96944 2015 LAMSEN, EL V Alfredo Exercises A isted Exercises For ROM Exercises Assisted Exercises For ROM 81787 2015 LAMSEN, EL V Alfredo Physical Therapy: ___ Se ion Segments, 15 Minutes Each Physical Therapy: ___ Session Segments, 15 Minutes Each 56271 2015 LAMSEN, EL V DoD Mobilization Soft Ti ue Mobilization Soft Tissue 94153 2015 [place] DoD Modalities Heat Hot Packs Modalities Heat Hot Packs 81322 2015 [place] Exercises A isted Exercises For ROM Exercises Assisted Exercises [place] ROM 75369 2015 [place] Physical Medicine Physical Therapy Re-Evaluation Physical Medicine Physical Therapy Re-Evaluation 26389 2015 ALISA FERRARA DoD Exercises A isted Exercises For ROM Exercises Assisted [place]ises [place] ROM 23180 2015 [place] Modalities Electrical Stimulation Unattended Modalities Electrical Stimulation Unattended [id number] 2015 [place] Modalities Heat Hot Packs Modalities Heat Hot Packs 75655 2015 [place] Immunization Administration One Vaccine Immunization Administration One Vaccine 90498 2015 MASOUD GARCIA Influenza Split (Injectable); Series #: 1; .5 mL; IM; Unkown Arm; Mfg: [employer] Lot: [id number]; Exp. [id number]. DoD Modalities Electrical Stimulation Unattended Modalities Electrical Stimulation Unattended 34281 2015 LAMSEN, EL V DoD Modalities Heat Hot Packs Modalities Heat Hot Packs [id number] 2015 LAMSEN, EL V DoD Exercises A isted Exercises For ROM Exercises Assisted Exercises For ROM 92579 2015 LAMSEN, EL V DoD Physical Therapy: ___ Se ion Segments, 15 Minutes Each Physical Therapy: ___ Session Segments, 15 Minutes Each [id number] 2015 LAMSEN, EL V DoD Exercises A isted Exercises For ROM Exercises Assisted [place]ercises [place] ROM 99168 2015 CAROLYNE [place] DoD Modalities Electrical Stimulation Unattended Modalities Electrical Stimulation Unattended 18762 2015 [place] DoD Modalities Heat Hot Packs Modalities Heat Hot Packs 61309 2015 [place] Modalities Electrical Stimulation Modalities Electrical Stimulation 24367 2015 LAMSEN, EL V DoD Modalities Heat Hot Packs Modalities Heat Hot Packs 39284 2015 LAMKARIN, EL V Alfredo Exercises A isted Exercises For ROM Exercises Assisted Exercises For ROM 35667 2015 LAMSEN, EL V Alfredo Physical Therapy: ___ Se ion Segments, 15 Minutes Each Physical Therapy: ___ Session Segments, 15 Minutes Each [id number] 2015 EL SIDDIQUI Exercises A isted Exercises For ROM Exercises Assisted [place]ercises [place] ROM 50215 2015 [place] Modalities Heat Hot Packs Modalities Heat Hot Packs 28280 2015 [place] Exercises A isted Exercises For ROM Exercises Assisted [place] ROM 12360 2015 [place] MA Physical Therapy: ___ Se ion Segments, 15 Minutes Each Physical Therapy: ___ Session Segments, 15 Minutes Each 46096 2015 ALISA FERRARA Therex x 15 minutes; those listed as Home Exercise Program [facility] Physical Medicine Physical Therapy Evaluation Physical Medicine Physical Therapy Evaluation 47669 2015 ALISA FERRARA Exercises A isted Exercises For ROM Exercises Assisted [place]ercises [place] ROM 26819 2015 [place] MA Exercises A isted Exercises For ROM Exercises Assisted Exercises For ROM 07198 2015 CAROL[place] MA Physical Therapy: ___ Se ion Segments, 15 Minutes Each Physical Therapy: ___ Session Segments, 15 Minutes Each 84969 2015 ALISA FERRARA Therex x 15 minutes; those listed as Home Exercise Program [facility] Osteopathic Manip Treatment (OMT) 1-2 Body Regions Involved Osteopathic Manip Treatment (OMT) 1-2 Body Regions Involved 63424 2015 ALISA FERRARA OMT to t-spine in prone and supine; multiple cavitations heard [facility] Physical Medicine Physical Therapy Re-Evaluation Physical Medicine Physical Therapy Re-Evaluation 12272 2015 ALISA FERRARA Chiropractic Manip Treatmt (CMT) Spinal One To Two Regions Chiropractic Manip Treatmt (CMT) Spinal One To Two Regions 31311 2015 FANNY JO Supine and side-lying SMT to C-spine and pelvis [facility] Physical Therapy Neuromuscular Re-education Physical Therapy Neuromuscular Re-education 12580 2015 RILEY JEANCARLOS [facility] Physical Therapy: ___ Se ion Segments, 15 Minutes Each Physical Therapy: ___ Session Segments, 15 Minutes Each 17944 2015 RILEY JEANCARLOS Alfredo Chiropractic Manip Treatmt (CMT) Spinal Three To Four Region Chiropractic Manip Treatmt (CMT) Spinal Three To Four Region 32070 2015 FANNY JO Supine and side-lying SMT to C/T/L-spine, left 3rd rib and pelvis [facility] Implantable Contraceptive Capsules - Insertion 2015 BORIS [...] IN EXCELLENT CONDITION UPON EXITING THE CLINIC. [facility] Physical Therapy: ___ Se ion Segments, 15 Minutes Each Physical Therapy: ___ Session Segments, 15 Minutes Each 43857 2015 YOLANDA, JULIA BETH Therex x 15 min; those listed as HEP [facility] Physical Medicine Physical Therapy Evaluation Physical Medicine Physical Therapy Evaluation 91057 2015 JULIA GUERRERO Exercises A isted Exercises For ROM Exercises Assisted Exercises For ROM 19181 2015 FANNY JO 8 minutes: Strengthening: Pelvic tilt, crunches, Postural and scapular stabilization basics Stretching: Piriformis, Alfredo Chiropractic Manip Treatmt (CMT) Spinal Three To Four Region Chiropractic Manip Treatmt (CMT) Spinal Three To Four Region 92307 2015 FANNY JO Supine SMT to upper C-spine and left 3rd rib. Side-lying SMT to L5 and pelvis; ART to left piriformis. Alfredo [facility] Provision Of Educational Supplies -Supervised Services Provision Of Educational Supplies 40248 2015 FANNY JO Printed home exercise instructions. Alfredo Exercises A isted Exercises For ROM Exercises Assisted Exercises For ROM 89357 2015 FANNY JO 8 minutes: Strengthening: Pelvic tilt, crunches, Postural and scapular stabilization basics Stretching: iformis, Alfredo Chiropractic Manip Treatmt (CMT) Spinal Three To Four Region Chiropractic Manip Treatmt (CMT) Spinal Three To Four Region 53522 2015 FANNY JO Supine and side-lying SMT to C/T/L-spine, ribs and pelvis [facility] [employer] [facility] Fitting Monofocals (Not For Aphakia) [facility] Fitting Monofocals (Not For Aphakia) 83455 2015 SHERLYN ALEJANDRO Determination Of Refractive State Determination Of Refractive State 28540 2015 SHERLYN ALEJANDRO Ophthalmological New Patient Start Comprehensive Care Ophthalmological New Patient Start Comprehensive Care 31009 2015 SHERLYN ALEJANDRO Visual Function Screening Visual Function Screening 57570 2015 JUAN CARLOS KEARNS Visual Function Screening Visual Function Screening 55306 2015 SHERLYN ALEJANDRO Audiometry Group Testing Audiometry Group Testing 73150 2014 SHERLYN GANN Skin Test Anergy Tuberculin Intradermal Skin Test Anergy Tuberculin Intradermal 13544 2014 VALERIANO ZARATELLE Efren IPPD; Series #: 1; .1 mL; ID; Left Arm; Mfg: [employer]; Lot: [id number]. DoD Vaccines Vaccines 48105 2014 VALERIANO ZARATELLE Efren Influenza Split (Injectable); Series #: 1; .5 mL; IM; Left Arm; Mfg: [employer].; Lot: [id number]. DoD Immunization Administration One Vaccine Immunization Administration One Vaccine 12236 2014 TESSA ELY Schwartz [facility] Biopsy Skin Each Additional Lesion Biopsy Skin Each Additional Lesion 36181 2014 HECTOR LAMAS [facility] Biopsy Skin Biopsy Skin 54206 2014 HECTOR LAMAS AFTER EXPLAINING NATURE OF [...] CALL PATIENT WITH PATH RESULTS WHEN AVAILABLE. [facility] Electrocardiogram Electrocardiogram 11547 12/07 JULOI CÉSAR ESTEBAN [facility] OB Services Antepartum Care Only Subsequent Single Visit OB Services Antepartum Care Only Subsequent Single Visit 0502F 2014 DARYL LÓPEZ [facility] OB Services Antepartum Care Only Subsequent Single Visit OB Services Antepartum Care Only Subsequent Single Visit 0502F 2014 ZENA ESCAMILLA [facility] OB Services Antepartum Care Only Subsequent Single Visit OB Services Antepartum Care Only Subsequent Single Visit 0502F 2014 ZENA ESCAMILLA [facility] OB Services Antepartum Care Only Subsequent Single Visit OB Services Antepartum Care Only Subsequent Single Visit 0502F 2014 DARYL LÓPEZ [facility] OB Services Antepartum Care Only Subsequent Single Visit OB Services Antepartum Care Only Subsequent Single Visit 0502F 2014 DARYL LÓPEZ Chiropractic Manip Treatmt (CMT) Spinal One To Two Regions Chiropractic Manip Treatmt (CMT) Spinal One To Two Regions 91408 2014 FANNY OJ Side-lying SMT to L-spine and pelvis after ART to piriformis bilaterally and left iliolumbar multifiddii. [facility] Immunization Administration One Vaccine Immunization Administration One Vaccine 53221 2014 ROSA ELENA GOODWIN Tdap Vaccine Seven Years Of Age And Above Tdap Vaccine Seven Years Of Age And Above 97195 2014 ROSA ELENA GOODWIN Rho D Immune Globulin (Human) Intramuscular Use Full-dose Rho D Immune Globulin (Human) Intramuscular Use Full-dose 50489 2014 SYMONE TALAVERA Chiropractic Manip Treatmt (CMT) Spinal One To Two Regions Chiropractic Manip Treatmt (CMT) Spinal One To Two Regions 69587 2014 FANNY JO Supine and side-lying SMT to C/T/L-spine, ribs and pelvis; ART to left piriformis Alfredo Chiropractic Manip Treatmt (CMT) Spinal One To Two Regions Chiropractic Manip Treatmt (CMT) Spinal One To Two Regions 83477 2014 FANNY JO Side-lying SMT to L-spine and pelvis after ART to multifiddii and piriformis, instructed in sitting multifiddii stretch. [facility] Chiropractic Manip Treatmt (CMT) Spinal One To Two Regions Chiropractic Manip Treatmt (CMT) Spinal One To Two Regions 78829 2014 FANNY JO Supine and side-lying SMT to T/L-spine and pelvis after ART to hip flexors and piriformis [facility] OB Services Antepartum Care Only Subsequent Single Visit OB Services Antepartum Care Only Subsequent Single Visit 0502F 2014 TIMO JACKSON Chiropractic Manip Treatmt (CMT) Spinal One To Two Regions Chiropractic Manip Treatmt (CMT) Spinal One To Two Regions 64384 2014 FANNY JO Side-lying SMT to L-spine and pelvis; ART to lumbar multifiddii and instruction in stretching multifiddi, recumbant and seated positions. Alfred[facility] Services Provision Of Educational Supplies -Supervised Services Provision Of Educational Supplies 34950 2014 FANNY JO Printed home exercise instructions Alfredo Exercises A isted Exercises For ROM Exercises Assisted Exercises For ROM 65894 2014 FANNY JO 8 minutes: Stretching: Piriformis, after ART to piriformis and right psoas. [facility] Chiropractic Manip Treatmt (CMT) Spinal One To Two Regions Chiropractic Manip Treatmt (CMT) Spinal One To Two Regions 27754 2014 FANNY JO Side-lying SMT to pelvis. Alfredo OB Services Antepartum Care Only Subsequent Single Visit OB Services Antepartum Care Only Subsequent Single Visit 0502F 2014 TIMO JACKSON Ultrasound Obstetric Limited Evaluation Ultrasound Obstetric Limited Evaluation 86392 2014 TIMO JACKSON OB Services Antepartum Care Only First Visit, With Report OB Services Antepartum Care Only First Visit, With Report 0500F 2014 TIMO JACKSON Mobilization Soft Ti ue Mobilization Soft Tissue 57479 2014 CORNELIO MERCER Physical Medicine Physical Therapy Re-Evaluation Physical Medicine Physical Therapy Re-Evaluation 70965 2014 CORNELIO MERCER Transabdominal Ultrasound Single Or First Gestation Transabdominal Ultrasound Single Or First Gestation 06532 2014 SENA BERNABE Phys Therapy Education Self Care Training - Per 15 Minutes Phys Therapy Education Self Care Training - Per 15 Minutes 04355 2013 GIANFRANCO JOINER Exercises A isted Exercises For ROM Exercises Assisted Exercises For ROM 56347 2013 GIANFRANCO JOINER Physical Medicine Physical Therapy Re-Evaluation Physical Medicine Physical Therapy Re-Evaluation 34170 2013 GIANFRANCO JOINER Physical Therapy: ___ Se ion Segments, 15 Minutes Each Physical Therapy: ___ Session Segments, 15 Minutes Each 53149 2013 ABRAN BRICEÑO PT A e ment Kinetic Training PT Assessment Kinetic Training 98571 2013 JAMES ALVAREZ Modalities Cryotherapy Cold Packs Modalities Cryotherapy Cold Packs 42939 2013 DANISH COWART Physical Therapy: ___ Se ion Segments, 15 Minutes Each Physical Therapy: ___ Session Segments, 15 Minutes Each 10381 2013 DANISH COWART [facility] Physical Therapy: ___ Se ion Segments, 15 Minutes Each Physical Therapy: ___ Session Segments, 15 Minutes Each 45210 2013 ROSA ELENA SIDHU [facility] PT A e ment Kinetic Training PT Assessment Kinetic Training 28665 2013 ROSA ELENA SIDHU Phys Therapy Education Self Care Training - Per 15 Minutes Phys Therapy Education Self Care Training - Per 15 Minutes 27987 2013 GIANFRANCO JOINER [facility] Exercises A isted Exercises For ROM Exercises Assisted [place]ises [place] ROM 42342 2013 GIANFRANCO JOINER [facility] Physical Medicine Physical Therapy Evaluation Physical Medicine Physical Therapy Evaluation 50533 2013 GIANFRANCO JOINER [facility] Social History Combined list of available smoking, tobacco, and other social history from 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 Social History Type Response Date Comment Sourc e Tobacco smoking status NHIS VA-TOBACCO FORMER USER 11/27/2023 [facility] History of tobacco use SD-TOBACCO QUIT 5 TO < 15 YRS 11/27/2023 [facility] History of tobacco use VA-TOBACCO FORMER USER 01/30/2023 [facility] History of tobacco use VA-TOBACCO FORMER USER 02/07/2022 [facility] History of tobacco use VA-TOBACCO FORMER USER 11/28/[facility] History of tobacco use VA-TOBACCO FORMER USER 02/28/2018 [facility] History of tobacco use SD-TOBACCO QUIT 1 TO < 5 YRS 12/13/2017 [facility] History of tobacco use QUIT TOBACCO >12 MO and <7 YRS AGO 11/04/2017 [facility] History of tobacco use QUIT TOBACCO >12 MO and <7 YRS AGO 07/04/2017 [facility] This section is an empty social history section. [facility] Plan of Care List of future care activities from Department of 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 Additional future care activities may be listed in the Assessment and Plan section. Date/Time Care Activity Care Activity Detail Facili ty 10/07/2024 AMBULATORY - NONE AMBULATORY - NONE [facility]
[2024-10-05 21:02] LABS: Hematocrit 34.2 % (35.0-49.0); Hemoglobin 11.1 g/dL (12.0-15.0); Immature Granulocyte Percent A 0.3 % (0.0-0.0); Lymphocytes Absolute Auto 2.33 K/mm3 (1.10-4.50); Mean Corpuscular HGB Conc 32.5 g/dL (32-36); Mean Corpuscular Hemoglobin 27.1 pg (27.0-31.0); Mean Corpuscular Volume 83.4 fL (78.0-102.0); Nucleated Red Blood Cells Absolute Auto 0.00 K/mm3 (0.00-0.00); Nucleated Red Blood Cells Perc 0.0 % (0-0.0); Platelet Count Result 456 K/mm3 (150-420); Red Blood Count 4.10 M/mm3 (4.20-5.40); White Blood Count 7.9 K/mm3 (4.8-10.8)
[2024-10-05] MEDS: LORazepam (*CRX) 1 MG TABLET PO (21:03)
[2024-10-05 21:14] LABS: Alanine Aminotransferase 63 U/L (6-35); Albumin Level 4.4 g/dL (3.5-5.1); Alkaline Phosphatase 169 U/L (38-126); Anion Gap 8 mmol/L (4-12); Aspartate Amino Transferase 56 U/L (14-36); Bilirubin,Total 0.5 mg/dL (0.2-1.3); Blood Urea Nitrogen 14 mg/dL (7-17); Calcium 9.3 mg/dL (8.4-10.2); Carbon Dioxide 27 mmol/L (22-30); Chloride 104 mmol/L (98-107); Estimated Glomerular Filt Rate > 60; Glucose 92 mg/dL (65-110); Osmolality Calculated 288 mOsm/kg (285-295); Potassium 3.7 mmol/L (3.4-5.0); Sodium 139 mmol/L (137-145); Total Protein 7.5 g/dL (6.3-8.2)
[2024-10-05 21:37] VITALS: BP 130/78; PULSE 61; RESP 18; TEMP 36.7; O2SAT 97
== END 2024-10-05 21:40 | disposition home or self-care (01) ==
PROVIDERS: Emergency Provider Emergency Medicine
DX: F41.9 Anxiety disorder, unspecified (principal); G56.20 Lesion of ulnar nerve, unspecified upper limb
CPT/HCPCS: 36415; 80053; 85025; 99283; A9270